=== PATIENT | female | born 1940 | race Caucasian/White ===

== ENCOUNTER → 2017-01-06 | Outpatient (CLI) | payer MEDICARE, OTHER ==
[~2017-01-06] MED LIST: ALBUAER3 INH; AMLO5TAB22 PO; ATOR10 PO; BENA25TA3 PO; BUME1TAB PO; CALC600T25 PO; CEFT2INJ IM; CLOB0.055 TOPICAL; COUM1TAB PO; COUM2TAB PO; COUM3TAB PO; DILT60TA33 PO; DIPH2%T PO; DOCU1CAP39 PO; ESTR.3 PO; FURO1TAB62 PO; HYDR-3516 PO; INSU1INJ14 SQ; L-ME1CAP2 PO; LANTUSP SQ; LASI20TA PO; LEVEMIR SQ; LEVO.075 PO; LEVO.1 PO; LEVO100T4 PO; LEVO75TA3 PO; LIPI10TA PO; LOSA100T PO; MULT-65 PO; NAPR220T95 PO; NOVOLOGP2 SQ; OMEP20TA OR; OMEP20TA PO; ONDA4TAB7 SL; POTA20TA5 PO; PROT40TA PO; SPIR25 PO; SPIR25TA PO; TAB-TAB PO; URSO250T2 PO; URSO300 PO; [UNRECOGNIZED DRUG - OTHER] PO
[2017-01-06 12:12] LABS: AUTOMATED NEUTROPHIL # 2.6 TH/MM3 (1.8-7.7); BASOPHIL % 0.9 % (0.0-2.0); EOSINOPHIL # 0.1 TH/MM3 (0-0.4); EOSINOPHIL % 2.6 % (0.0-4.0); HEMATOCRIT 37.9 % (35.0-46.0); LYMPH % 27.5 % (9.0-44.0); LYMPHOCYTE # 1.1 TH/MM3 (1.0-4.8); MEAN CELL VOLUME 85.8 FL (80.0-100.0); MEAN CORPUSCULAR HEMOGLOBIN 28.5 PG (27.0-34.0); MEAN CORPUSCULAR HGB CONC 33.2 % (32.0-36.0); MONO % 7.4 % (0.0-8.0); NEUT % 61.6 % (16.0-70.0); PLATELET COUNT 73 TH/MM3 (150-450); RED BLOOD COUNT 4.42 MIL/MM3 (4.00-5.30); RED CELL DISTRIBUTION WIDTH 15.3 % (11.6-17.2); WHITE BLOOD COUNT 4.2 TH/MM3 (4.0-11.0)
[2017-01-06 12:16] LABS: HEMO FLAGS AUTO DIFF
[2017-01-06 13:00] LABS: OVALOCYTES 1+ (NORMAL); PLATELET ESTIMATE SMEAR LOW (NORMAL); PLATELET MORPHOLOGY NORMAL (NORMAL); SCAN/DIFF AUTO DIFF CONFIRMED
== END ==
LOC: CPRE 10:46
PROVIDERS: ATTEND Ophthalmology
DX: Z01.812 Encounter for preprocedural laboratory examination (principal); H26.9 Unspecified cataract
CPT/HCPCS: 36415; 85025

== ENCOUNTER → 2017-01-20 | Day surgery (SDC) | payer MEDICARE, OTHER ==
--- NOTE | 2017-01-13 15:29 | MH ---
cc: LISA HOLBROOK M.D. DATE OF ADMISSION: 01/20/2017 ADMISSION DIAGNOSIS Cataract, left eye. HISTORY OF PRESENT ILLNESS This 76-year-old white female is coming through [facility] for the purpose of a lens extraction of the left eye with intraocular lens implant under local anesthesia. She has noticed decreasing visual acuity interfering with her daily activities and elected to have the above procedure. Her best corrected visual acuity in room light is 20/30 in the right eye and 20/30 -3 in the left. PAST MEDICAL HISTORY The patient has a history of: 1. Diabetes type 1 for 20 years. 2. Chronic bilateral liver disease, stage IV. 3. Questionable myocardial infarction with a history of cholesterol problems. 4. Hypothyroid. 5. Eczema of the hands. 6. Aortic valve stenosis. PAST SURGICAL HISTORY Includes: 1. Mastoid surgery on the left side of the ear. 2. Hysterectomy. 3. Vein stripping. 4. Skin cancer on the nose, basal cell carcinoma. 5. Heart cath. 6. Appendectomy. 7. Left arthroscopic knee surgery. 8. Open heart surgery involving aortic valve replacement. MEDICATIONS Daily medications include: 1. Mckenna. 2. Spironolactone. 3. Synthroid. 4. Lipitor. 5. Prolia. 6. Lasix. 7. Premarin. 8. Multivitamins. 9. Benadryl p.r.n. 10. Aleve p.r.n. 11. Metanx. 12. Insulin Lantus. 13. NovoLog. 14. Amoxicillin prior to dental work. 15. Vitamin D. 16. Losartan. ALLERGIES SULFA, AMPICILLIN, QUININE, LEVAQUIN, IODINE. SOCIAL HISTORY She does not smoke. Drinks socially but not since August of 1996, she is not doing that now. FAMILY HISTORY Family history is positive for mother with cataract. REVIEW OF SYSTEMS HEAD: Patient denies severe headaches, dizziness or recent head injury. EARS: Patient denies hearing loss, ear pain, discharge or ringing in the ears. NOSE: Patient denies nasal discharge, obstruction or frequent colds. MOUTH AND THROAT: Patient denies soreness of the mouth or tongue, bleeding gums, trouble swallowing, changes in voice or sore throat. NECK: Patient denies neck pain or swelling, limitation of neck movement or neck injury. CARDIOPULMONARY SYSTEM: She has some shortness of breath due to atrial valve narrowing occasionally. No orthopnea, chronic cough, sputum production, hemoptysis, chest pain, wheezing, palpitations or light-headedness. GI SYSTEM: Patient denies poor appetite, nausea, vomiting, abdominal pain, ulcers, or change in bowel habits. She has a history of hemorrhoids. SYSTEM: The patient denies urinary frequency, dysuria, change in urine color. NERVOUS SYSTEM: Patient denies convulsions, vertigo, stroke, numbness or weakness. PHYSICAL EXAMINATION VITAL SIGNS: Blood pressure is 120/64, pulse 52, respirations 16. HEAD: Normocephalic, atraumatic. NOSE: Without rhinorrhea. THROAT: Clear. NECK: Supple. CHEST: Clear. HEART: Regular rhythm with murmur. ABDOMEN: Without tenderness. EXTREMITIES: Without edema. NEUROLOGIC: Within normal limits. MENTAL STATUS: Within normal limits. EYE EXAMINATION: The patient's best corrected visual acuity in room light is 20/30 in the right eye and 20/30 -3 in the left. Visual vargas are full to confrontation testing. Extraocular muscle exam reveals full versions with orthophoria at distance and near. Pupils are 2.5 mm equal, round, reactive to light without afferent defect. Anterior segment examination reveals mild corneal guttata in both eyes. There are nuclear sclerotic and cortical cataract changes bilaterally. Intraocular pressure is 15 in the right eye and 16 in the left by applanation tonometry. Dilated fundus exam revealed sharp disks with cup-to-disk ratio 0.3 bilaterally. The macula is clear bilaterally. A few drusen are present along the inferior arcade in the left eye. IMPRESSION 1. Bilateral cataracts. 2. Corneal guttata, both eyes. 3. Diabetes type 2, insulin dependent. PLAN Lens extraction of the left eye with intraocular lens implant under local anesthesia through [facility]. The patient has been cleared medically. She has been counseled as to the risks, benefits and alternatives and elected to proceed. I feel that cataract surgery will improve the quality of life and activities of daily living in this patient. MD JOSE Flower/KASEY /2:57 PM /3:08 PM
[~2017-01-20] VITALS: Ht 157.5 cm; Wt 62.2 kg
[~2017-01-20] MED LIST changes: +ACETYLCHOLINE CHL OPHT SOLN 1:100 2 ML VIAL ONE; -AMLO5TAB22 PO; -ATOR10 PO; +CYCLOPENTOLATE HCL 1% OPHT SOLN 2 ML BTL ONE; +DICLOFENAC SOD 0.1% OPHT SOLN 2.5 ML BTL ONE; -DIPH2%T PO; +EPINEPHrine HCL (1:1000) 1 MG/ML VIAL ONE; +GATIFLOXACIN 0.5% OPHT SOLN 2.5 ML BTL ONE; +HYALURONIDASE/LIDOCAINE/BUPIVACAINE 4.5 ML SYR ONE; +HYALURONIDASE/LIDOCAINE/BUPIVACAINE 6 ML SYR ONE; -LANTUSP SQ; -LASI20TA PO; -LEVO100T4 PO; -OMEP20TA OR; +PHENYLEPHRINE HCL 2.5% OPTH SOLN 2 ML BTL ONE; +PROPARACAINE HCL 0.5% OPHT SOLN 15 ML BTL ONE; +PROPOFOL 200 MG/20 ML AMP ONE; +SODIUM CHLORID 0.9% 500 ML INJ 500 ML ONE; -TAB-TAB PO; +TOBRAMYCIN 0.3%/DEXAMETHASONE 0.1% OPHT SUSP 5 ML BTL ONE; +TROPICAMIDE 1% OPHT SOLN 15 ML BTL ONE; -URSO300 PO; +VISCOAT OPHT IRRIG SOLN 0.75 ML SYRINGE LEFT EYE ONE; -[UNRECOGNIZED DRUG - OTHER] PO
[2017-01-20 07:44] VITALS: BP 127/70; PULSE 43; RESP 16; TEMP 97.6; O2SAT 97
[2017-01-20 07:50] VITALS: PULSE 43
[2017-01-20 08:57] VITALS: PULSE 54
[2017-01-20] MEDS: TOBRAMYCIN/DEXAMETHASONE OPTH OINT 3.5 GM TUBE ONE ×2 (09:20→10:08)
[2017-01-20] MEDS: PILOCARPINE HCL 2% OPHT SOLN 15 ML BTL ONE ×2 (09:20→10:07)
[2017-01-20 10:15] VITALS: TEMP 98
[2017-01-20 10:35] VITALS: BP 120/59; PULSE 41; RESP 14; O2SAT 98
--- NOTE | 2017-01-20 11:53 | MP ---
cc: LISA KUMAR M.D. DATE OF SURGERY: January 20, 2017 PREOPERATIVE DIAGNOSIS: Cataract left eye. POSTOPERATIVE DIAGNOSIS: Cataract left eye. OPERATION: Extracapsular cataract extraction with posterior chamber intraocular lens implant by phacoemulsification, left eye. SURGEON: Lisa Kumar M.D. ANESTHESIA: Local. COMPLICATIONS: None. INDICATIONS: See history and physical previously dictated. OPERATIVE PROCEDURE: The patient had adequate retrobulbar and eyelid blocks administered in the holding area and was brought to the operating room. The left eye was prepped and draped in the usual sterile ophthalmic manner. A lid speculum was inserted in the left eye. A 4-0 silk bridle suture was placed through the conjunctiva near the superior rectus muscle and it was tagged to the drape. A fornix-based conjunctival flap was prepared spanning approximately 5 mm in width. Hemostasis was obtained with wet-field cautery. A 3.5 mm groove was made 1 mm from the limbus and dissected up to the limbus in the form of a scleral pocket incision. A stab incision was then made at the 2 o'clock position. Viscoelastic was injected into the anterior chamber. In order to maintain an adequately dilated pupil, it was elected to use iris retractors in this case. Stab incisions were made at the 1 o'clock, 3 o'clock, 5 o'clock, 8 o'clock and 10 o'clock positions. Iris retractors were then inserted through the stab incisions in the peripheral cornea and positioned to enlarge the size of the pupil. The anterior chamber was entered with a 2.75 mm keratome through the scleral pocket incision. A 360 degree continuous curvilinear capsulorrhexis was then performed. Hydrodissection was utilized to divide the nucleus into inner and outer components and to separate the cortex from the capsule. Phacoemulsification was then utilized to remove the nucleus. The outer nuclear layer was removed with irrigation and aspiration and short bursts of ultrasound as necessary. The cortex was removed with the irrigation-aspiration handpiece. The posterior capsule was polished with the capsule polisher. Viscoelastic was injected into the capsular bag. The intraocular lens was inspected and found to be in good condition. The lens utilized was an Seun, model #SA60AT with a power of +24 diopters. The lens was inserted into the capsular bag. The five iris retractors were removed. The viscoelastic in the anterior chamber was then removed with the irrigation-aspiration hand piece. Viscoelastic was also removed from beneath the intraocular lens. The anterior chamber was filled with Miochol-E through the stab incision and pressurized. The wound was checked for leaks at this pressure and normalized pressure and there were none. The 4-0 bridle suture was removed. The conjunctival flap was brought down over the wound and secured with cautery. Pilocarpine 2% eye drops were instilled topically. The lid speculum was removed. TobraDex ophthalmic ointment was applied. The eye was double patched and shielded. The patient tolerated the procedure well and left the Operating Room in satisfactory condition. MD JOSE Flower/DOMO /10:20 AM /11:52 AM
== END | disposition home or self-care (01) ==
LOC: PHSDC 07:00
PROVIDERS: ATTEND Ophthalmology
DX: H26.9 Unspecified cataract (principal); E10.9 Type 1 diabetes mellitus without complications; E03.9 Hypothyroidism, unspecified; Z79.4 Long term (current) use of insulin; Z88.0 Allergy status to penicillin
CPT/HCPCS: 00142; 66984; 82948; J0171; J7040; V2632

== ENCOUNTER → 2017-02-17 | Outpatient (CLI) | payer MEDICARE, OTHER ==
[~2017-02-17] MED LIST changes: -ACETYLCHOLINE CHL OPHT SOLN 1:100 2 ML VIAL ONE; -CALC600T25 PO; -CYCLOPENTOLATE HCL 1% OPHT SOLN 2 ML BTL ONE; -DICLOFENAC SOD 0.1% OPHT SOLN 2.5 ML BTL ONE; -EPINEPHrine HCL (1:1000) 1 MG/ML VIAL ONE; -GATIFLOXACIN 0.5% OPHT SOLN 2.5 ML BTL ONE; -HYALURONIDASE/LIDOCAINE/BUPIVACAINE 4.5 ML SYR ONE; -HYALURONIDASE/LIDOCAINE/BUPIVACAINE 6 ML SYR ONE; -PHENYLEPHRINE HCL 2.5% OPTH SOLN 2 ML BTL ONE; -PROPARACAINE HCL 0.5% OPHT SOLN 15 ML BTL ONE; -PROPOFOL 200 MG/20 ML AMP ONE; -SODIUM CHLORID 0.9% 500 ML INJ 500 ML ONE; -TOBRAMYCIN 0.3%/DEXAMETHASONE 0.1% OPHT SUSP 5 ML BTL ONE; -TROPICAMIDE 1% OPHT SOLN 15 ML BTL ONE; -VISCOAT OPHT IRRIG SOLN 0.75 ML SYRINGE LEFT EYE ONE
[2017-02-17 10:41] LABS: HEMATOCRIT 37.7 % (35.0-46.0); MEAN CELL VOLUME 85.9 FL (80.0-100.0); MEAN CORPUSCULAR HGB CONC 32.6 % (32.0-36.0); PLATELET COUNT 67 TH/MM3 (150-450); RED BLOOD COUNT 4.39 MIL/MM3 (4.00-5.30); RED CELL DISTRIBUTION WIDTH 13.6 % (11.6-17.2); WHITE BLOOD COUNT 3.6 TH/MM3 (4.0-11.0)
[2017-02-17 10:42] LABS: REVIEW FLAG AUTO DIFF
== END ==
LOC: PHPRE 10:01
PROVIDERS: ATTEND Ophthalmology
DX: Z01.812 Encounter for preprocedural laboratory examination (principal)
CPT/HCPCS: 85027

== ENCOUNTER → 2017-02-24 | Day surgery (SDC) | payer MEDICARE, OTHER ==
--- NOTE | 2017-02-18 15:56 | MH ---
cc: LISA HOLBROOK DATE OF ADMISSION 02/24/2017 ADMISSION DIAGNOSIS Cataract right eye. HISTORY OF PRESENT ILLNESS This 76-year-old white female is coming through [facility] for the purpose of a lens extraction of the right eye with intraocular lens implant under local anesthesia. She had a similar procedure in January and did well postoperatively and now is requesting cataract surgery for her right eye. Her best corrected visual acuity is 20/30 -1 in the right eye and 20/25 -1 in the left. PAST MEDICAL HISTORY The patient has history of: 1. Diabetes. 2. Bilateral liver disease. 3. Cholesterol problems. 4. Possible myocardial infarction. 5. Hypothyroid. 6. Eczema of the hands. 7. Aortic valve stenosis. PAST SURGICAL HISTORY Surgical history includes: 1. The above-mentioned cataract surgery on her left eye in January. 2. As well as mastoid surgery on the left ear. 3. Hysterectomy. 4. Vein stripping. 5. Skin cancer on the nose with basal cell carcinoma. 6. Heart cath. 7. Appendectomy. 8. Left arthroscopic knee surgery. 9. Aortic valve replacement. MEDICATIONS Daily medications include: 1. Mckenna. 2. Spironolactone. 3. Synthroid. 4. Lipitor. 5. Prolia injections every 6 months. 6. Lasix. 7. Premarin. 8. Multivitamins. 9. Benadryl p.r.n. 10. Aleve p.r.n. 11. Metanx. 12. Insulin Lantus / NovoLog. 13. Amoxicillin prior to dental work. 14. Vitamin D. 15. Losartan. ALLERGIES SHE IS ALLERGIC TO SULFA, AMPICILLIN, QUININE, LEVAQUIN, IODINE. SOCIAL HISTORY She does not smoke and used to drink socially but not in many years. FAMILY HISTORY Positive for mother with cataract. REVIEW OF SYSTEMS HEAD: Patient denies severe headaches, dizziness or recent head injury. EARS: Patient denies hearing loss, ear pain, discharge or ringing in the ears. NOSE: Patient denies nasal discharge, obstruction or frequent colds. MOUTH AND THROAT: Patient denies soreness of the mouth or tongue, bleeding gums, trouble swallowing, changes in voice or sore throat. NECK: Patient denies neck pain or swelling, limitation of neck movement or neck injury. CARDIOPULMONARY SYSTEM: The patient has some shortness of breath due to the atrial valve narrowing, this occurs occasionally. Patient denies orthopnea, chronic cough, sputum production, hemoptysis, chest pain, wheezing, palpitations or light-headedness. GI SYSTEM: The patient has hemorrhoids. Patient denies poor appetite, nausea, vomiting, abdominal pain, ulcers or change in bowel habits. SYSTEM: The patient denies urinary frequency, dysuria, change in urine color. NERVOUS SYSTEM: Patient denies convulsions, vertigo, stroke, numbness or weakness. PHYSICAL EXAMINATION VITAL SIGNS: Blood pressure 124/60, pulse 52, respirations 20. HEAD: Normocephalic, atraumatic. NOSE: Without rhinorrhea. THROAT: Clear. NECK: Supple. CHEST: Clear. HEART: Regular rhythm with murmur. ABDOMEN: Without tenderness. EXTREMITIES: Without edema. NEUROLOGIC: Within normal limits. MENTAL STATUS: Within normal limits. EYE EXAMINATION The patient's best corrected visual acuity is 20/30 -1 in the right eye, 20/25 -1 in the left. Visual vargas are full to confrontation testing. Extraocular muscle exam reveals full versions with orthophoria at distance and near. Pupils are 2.5 mm equal, round, reactive to light without afferent defect. Anterior segment examination reveals mild corneal guttae in both eyes. There is a posterior chamber intraocular lens in place in the left eye and a nuclear sclerotic and cortical cataract present in the right eye. The intraocular pressure is 12 in each eye by applanation tonometry. Dilated fundus exam reveals sharp disks with cup-to-disk ratio 0.3 bilaterally. The macula is clear bilaterally. There are a few drusen along the inferior vessel arcade in the left eye and one dot hemorrhage superonasal in the mid periphery of the left eye in the background. The rest is negative. IMPRESSION 1. Cataract right eye. 2. Pseudophakia left eye. 3. Corneal guttae. PLAN The plan is lens extraction of the right eye with intraocular lens implant under local anesthesia through [facility]. Iris retractors will be used in this patient whose pupil does not dilate adequately. The patient has been cleared medically. She has been counseled as to the risks, benefits and alternatives and elected to proceed. I feel that cataract surgery will improve the quality of life and activities of daily living in this patient. MD JOSE F Flower /3:16 PM /3:33 PM
[~2017-02-24] VITALS: Ht 162.6 cm; Wt 66.5 kg
[~2017-02-24] MED LIST changes: +ACETYLCHOLINE CHL OPHT SOLN 1:100 2 ML VIAL ONE; +CYCLOPENTOLATE HCL 1% OPHT SOLN 2 ML BTL ONE; +DICLOFENAC SOD 0.1% OPHT SOLN 2.5 ML BTL ONE; +EPINEPHrine HCL (1:1000) 1 MG/ML VIAL ONE; +GATIFLOXACIN 0.5% OPHT SOLN 2.5 ML BTL ONE; +HYALURONIDASE/LIDOCAINE/BUPIVACAINE 4.5 ML SYR ONE; +HYALURONIDASE/LIDOCAINE/BUPIVACAINE 6 ML SYR ONE; +MIDAZOLAM HCL 2 MG/2 ML VIAL ONE; +PHENYLEPHRINE HCL 2.5% OPTH SOLN 2 ML BTL ONE; +PROPARACAINE HCL 0.5% OPHT SOLN 15 ML BTL ONE; +PROPOFOL 200 MG/20 ML AMP ONE; +SODIUM CHLORID 0.9% 500 ML INJ 500 ML ONE; +TETRACAINE 0.5% OPTH SOLN 4 ML BTL ONE; +TROPICAMIDE 1% OPHT SOLN 15 ML BTL ONE; +VISCOAT OPHT IRRIG SOLN 0.75 ML SYRINGE RIGHT EYE ONE
[2017-02-24 06:30] VITALS: BP 139/66; PULSE 50; RESP 19; TEMP 97.5; O2SAT 97
[2017-02-24 06:50] VITALS: PULSE 50
[2017-02-24 06:55] VITALS: PULSE 54
[2017-02-24] MEDS: PILOCARPINE HCL 2% OPHT SOLN 15 ML BTL ONE ×2 (08:05→09:25)
[2017-02-24] MEDS: TOBRAMYCIN/DEXAMETHASONE OPTH OINT 3.5 GM TUBE ONE ×2 (08:06→09:25)
[2017-02-24 09:30] VITALS: TEMP 98
[2017-02-24 09:55] VITALS: BP 125/49; PULSE 53; RESP 14; O2SAT 97
--- NOTE | 2017-02-25 17:28 | MP ---
cc: LISA KUMAR DATE OF SURGERY: 02/24/2017 PREOPERATIVE DIAGNOSIS: Cataract right eye. POSTOPERATIVE DIAGNOSIS: Cataract right eye. OPERATION: Extracapsular cataract extraction with posterior chamber intraocular lens implant by phacoemulsification, right eye. SURGEON: Lisa Kumar M.D. ANESTHESIA: Local. COMPLICATIONS: None. INDICATIONS: See history and physical previously dictated. OPERATIVE PROCEDURE: The patient had adequate retrobulbar and eyelid blocks administered in the holding area and was brought to the operating room. The right eye was prepped and draped in the usual sterile ophthalmic manner. A lid speculum was inserted in the right eye. A 4-0 silk bridle suture was placed through the conjunctiva near the superior rectus muscle and it was tagged to the drape. A fornix-based conjunctival flap was prepared spanning approximately 5 mm in width. Hemostasis was obtained with wet-field cautery. A 3.5 mm groove was made 1 mm from the limbus and dissected up to the limbus in the form of a scleral pocket incision. A stab incision was then made at the 2 o'clock position. Viscoelastic was injected into the anterior chamber. In order to maintain an adequately dilated pupil, it was elected to use iris retractors in this case. Stab incisions were made at the 1 o'clock, 3 o'clock, 5 o'clock, 8 o'clock and 10 o'clock positions. Iris retractors were then inserted through the stab incisions in the peripheral cornea and positioned to enlarge the size of the pupil. The anterior chamber was entered with a 2.75 mm keratome through the scleral pocket incision. A 360 degree continuous curvilinear capsulorrhexis was then performed. Hydrodissection was utilized to divide the nucleus into inner and outer components and to separate the cortex from the capsule. Phacoemulsification was then utilized to remove the nucleus. The outer nuclear layer was removed with irrigation and aspiration and short bursts of ultrasound as necessary. The cortex was removed with the irrigation-aspiration handpiece. The posterior capsule was polished with the capsule polisher. Viscoelastic was injected into the capsular bag. The intraocular lens was inspected and found to be in good condition. The lens utilized was a Seun, model SA60 AT with a power of +23.5 diopters. The lens was inserted into the capsular bag. The five iris retractors were removed. The viscoelastic in the anterior chamber was then removed with the irrigation-aspiration hand piece. Viscoelastic was also removed from beneath the intraocular lens. The anterior chamber was filled with Miochol-E through the stab incision and pressurized. The wound was closed with one interrupted 10-0 nylon suture. The wound was checked for leaks and there were none. The 4-0 bridle suture was removed. The conjunctival flap was brought down over the wound and secured with cautery. Pilocarpine 2% eye drops were instilled topically. The lid speculum was removed. TobraDex ophthalmic ointment was applied. The eye was double patched and shielded. The patient tolerated the procedure well and left the Operating Room in satisfactory condition. MD JOSE Flower/linda /9:42 AM /5:25 PM
== END | disposition home or self-care (01) ==
LOC: PHSDC 06:01
PROVIDERS: ATTEND Ophthalmology
DX: H26.9 Unspecified cataract (principal); E03.9 Hypothyroidism, unspecified; E11.9 Type 2 diabetes mellitus without complications; Z79.4 Long term (current) use of insulin; Z95.2 Presence of prosthetic heart valve; Z88.0 Allergy status to penicillin; Z85.828 Personal history of other malignant neoplasm of skin
CPT/HCPCS: 00142; 66984; J0171; J2250; J7040; V2632

== ENCOUNTER 2017-03-06 13:45 | Emergency (ER) | payer MEDICARE, OTHER ==
[~2017-03-06] VITALS: Ht 165.1 cm; Wt 64.4 kg
[~2017-03-06 13:45] MED LIST changes: -ACETYLCHOLINE CHL OPHT SOLN 1:100 2 ML VIAL ONE; -BUME1TAB PO; -CEFT2INJ IM; -COUM1TAB PO; -COUM2TAB PO; -COUM3TAB PO; -CYCLOPENTOLATE HCL 1% OPHT SOLN 2 ML BTL ONE; -DICLOFENAC SOD 0.1% OPHT SOLN 2.5 ML BTL ONE; -DILT60TA33 PO; -DOCU1CAP39 PO; -EPINEPHrine HCL (1:1000) 1 MG/ML VIAL ONE; -GATIFLOXACIN 0.5% OPHT SOLN 2.5 ML BTL ONE; -HYALURONIDASE/LIDOCAINE/BUPIVACAINE 4.5 ML SYR ONE; -HYALURONIDASE/LIDOCAINE/BUPIVACAINE 6 ML SYR ONE; -HYDR-3516 PO; -LEVEMIR SQ; -LEVO.075 PO; -LEVO75TA3 PO; -MIDAZOLAM HCL 2 MG/2 ML VIAL ONE; -ONDA4TAB7 SL; -PHENYLEPHRINE HCL 2.5% OPTH SOLN 2 ML BTL ONE; -POTA20TA5 PO; -PROPARACAINE HCL 0.5% OPHT SOLN 15 ML BTL ONE; -PROPOFOL 200 MG/20 ML AMP ONE; -PROT40TA PO; -SODIUM CHLORID 0.9% 500 ML INJ 500 ML ONE; -SPIR25 PO; -TETRACAINE 0.5% OPTH SOLN 4 ML BTL ONE; -TROPICAMIDE 1% OPHT SOLN 15 ML BTL ONE; -VISCOAT OPHT IRRIG SOLN 0.75 ML SYRINGE RIGHT EYE ONE
[2017-03-06 14:07] VITALS: BP 118/56; PULSE 61; RESP 18; TEMP 97.6; O2SAT 96
[2017-03-06 14:14] VITALS: BP 105/58; PULSE 60; RESP 18; O2SAT 97; O2SAT 99
[2017-03-06] MEDS ORDERED: SODIUM CHLORIDE 0.9% FLUSH 10 ML FLUSH IVF PRN (14:45)
[2017-03-06] MEDS ORDERED: SODIUM CHLOR 0.9% 1000 ML INJ 1,000 ML IV ONE (14:45)
--- NOTE | 2017-03-06 14:57 | PD ---
HPI Chief Complaint: GI Complaint Time Seen by Provider: 14:31 Travel History International Travel<30 days: No Contact w/Intl Traveler<30days: No Traveled to known affect area: No History of Present Illness HPI Patient is a 76-year-old female who presents to emergency room with complaints of not feeling well. Patient reports that since Friday, she has been feeling tired. Patient reports that she has been doing nothing but sleeping all day since Friday. Patient reports that she has had overall decreased by mouth intake. Patient reports that she has tried to supplement her diet with some glucerna. Reports that she has had a slightly productive cough since Friday as well as diarrhea. Patient reports that she has had about 4-5 episodes of diarrhea every day. Patient reports that she has not been on any oral antibiotics at this time, denies any sick contacts or any sick contacts or diarrhea. Patient denies any recent travels or any recent trips. Patient denies headache or dizziness. Patient denies chest pain or shortness of breath. Patient denies any abdominal pain at this time. Patient reports that she feels overall generalized weakness and fatigue. PFSH Past Medical History Arthritis: Yes Asthma: No Anxiety: No Depression: No Heart Rhythm Problems: No Cancer: No Cardiovascular Problems: Yes (VALVE REPLACEMENT) High Cholesterol: Yes Chest Pain: No Congestive Heart Failure: Yes Cirrhosis: Yes (STAGE 4 CHRONIC BILLARY) COPD: No Cerebrovascular Accident: No Diabetes: Yes Patient Takes Glucophage: No Diminished Hearing: No Endocrine: Yes Gastrointestinal Disorders: Yes (GERD) GERD: Yes Genitourinary: No Hepatitis: No Hiatal Hernia: Yes Hypertension: Yes Immune Disorder: No Medical other: Yes (L HAND ) Musculoskeletal: Yes (BACK PAIN, BROKEN PELVIS 2016(NO SURGERY)) Neurologic: No Psychiatric: No Reproductive: No Respiratory: Yes Immunizations Current: Yes Migraines: No Renal Failure: No Seizures: No Thyroid Disease: Yes Ulcer: No Tetanus Vaccination: < 5 Years Influenza Vaccination: Yes ?: Not Menopausal: Yes Past Surgical History Abdominal Surgery: Yes (APP) AICD: No Appendectomy: Yes (1950) Body Medical Devices: ATRIAL VALVE Cardiac Surgery: Yes (VALVE REPLACEMENT) Cholecystectomy: Yes (2005) Ear Surgery: No Endocrine Surgery: No Eye Surgery: Yes (cataract) Genitourinary Surgery: No Gynecologic Surgery: Yes (HYSTERECTOMY) Hysterectomy: Yes Joint Replacement: No Neurologic Surgery: No Oral Surgery: No Pacemaker: No Thoracic Surgery: No Valve Replacement: Yes (ATRIAL VALVE REPLACEMENT MODEL 3000FTX) Other Surgery: Yes (ATRIAL STENOSIS REPAIR BOVINE VALVE, MENISCUS REPAIR) Social History Alcohol Use: Yes (social) Tobacco Use: No Substance Use: No Allergies-Medications (Allergen,Severity, Reaction): Coded Allergies: Macrobid (Unverified Allergy, Severe, itching, 03/06/17) Adhesives (Verified Allergy, Intermediate, REDNESS, ITCHING, 03/06/17) Ampicillin (Verified Allergy, Mild, 03/06/17) Contrast Media (Verified Allergy, Mild, 03/06/17) Iodine (Verified Allergy, Mild, 03/06/17) Levaquin (Verified Allergy, Mild, 03/06/17) Sulfa (Verified Allergy, Mild, 03/06/17) *MDRO Multi-Drug Resistant Organism (Verified Adverse Reaction, Unknown, ) 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 Cleared by Infection Control. Reported Meds & Prescriptions Reported Meds & Active Scripts Active Reported Novolog Inj (Insulin Aspart) 1,000 Unit/10 Ml Vial 0 SQ DIRECTED Sliding Scale as directed. Spironolactone 25 Mg Tab 25 Mg PO DAILY Proair Hfa 8.5 GM Inh (Albuterol Sulfate) 90 Mcg/Act Aer 2 Puff INH Q4-6H PRN 108 mcg/actuation Metanx (w-[id number]) 1 Cap 1 Caplet PO BID Benadryl Allergy (Diphenhydramine HCl) 25 Mg Tab 25 Mg PO Q6H PRN Tresiba Flextouch Pen Inj (Insulin Degludec Inj) 300 unit/3 ML Pen 10 Units SQ AC BREAKFAST Premarin (Estrogens Conjugated) 0.3 Mg Tab 0.3 Mg PO DIRECTED 3 TIMES A WEEK Lasix (Furosemide) 20 Mg Tab 20 Mg PO 2XWEEK Losartan (Losartan Potassium) 100 Mg Tab 100 Mg PO DAILY Omeprazole 20 Mg Tab 20 Mg PO DAILY Lipitor (Atorvastatin Calcium) 10 Mg Tab 10 Mg PO HS Synthroid (Levothyroxine Sodium) 100 Mcg Tab 100 Mcg PO DAILY Multi-Vitamin Daily (Multiple Vitamin) 1 Tab Tab 1 Tab PO DAILY Mckenna 250 (Ursodiol) 250 Mg Tab 500 Mg PO BID Review of Systems General / Constitutional: No: Fever Eyes: No: Visual changes HENT: No: Headaches Cardiovascular: No: Chest Pain or Discomfort Respiratory: Positive: Cough, No: Shortness of Breath Gastrointestinal: Positive: Diarrhea, No: Nausea, Vomiting, Abdominal Pain, Constipation Genitourinary: No: Urgency, Frequency, Dysuria Musculoskeletal: No: Pain Skin: No Rash Neurologic: Positive: Weakness Psychiatric: No: Depression Endocrine: No: Polydipsia Hematologic/Lymphatic: No: Easy Bruising Physical Exam Narrative GENERAL: Mild distress SKIN: Focused skin assessment warm/dry. HEAD: Atraumatic. Normocephalic. EYES: Pupils equal and round. No scleral icterus. No injection or drainage. ENT: No nasal bleeding or discharge. Mucous membranes pink and dry NECK: Trachea midline. No JVD. CARDIOVASCULAR: Regular rate and rhythm. 5/6 systolic murmur RESPIRATORY: No accessory muscle use. Clear to auscultation. Breath sounds equal bilaterally. GASTROINTESTINAL: Abdomen soft, non-tender, nondistended. Hepatic and splenic margins not palpable. MUSCULOSKELETAL: No obvious deformities. No clubbing. No cyanosis. No edema. NEUROLOGICAL: Awake and alert. No obvious cranial nerve deficits. Motor grossly within normal limits. Normal speech. PSYCHIATRIC: Appropriate mood and affect; insight and judgment normal. Data Data Last Documented VS Vital Signs Date Time Temp Pulse Resp B/P Pulse Ox O2 Delivery O2 Flow Rate FiO2 03/06/17 16:03 48 18 105/58 97 Room Air 03/06/17 14:07 97.6 Orders Electrocardiogram (03/06/17 14:42) B-Type Natriuretic Peptide (03/06/17 14:42) Ckmb (Isoenzyme) Profile (03/06/17 14:42) Complete Blood Count With Diff (03/06/17 14:42) Comprehensive Metabolic Panel (03/06/17 14:42) Magnesium (Mg) (03/06/17 14:42) Prothrombin Time / Inr (Pt) (03/06/17 14:42) Act Partial Throm Time (Ptt) (03/06/17 14:42) Troponin I (03/06/17 14:42) Lipase (03/06/17 14:42) Chest, Single Ap (03/06/17 14:42) Ecg Monitoring (03/06/17 14:42) Iv Access Insert/Monitor (03/06/17 14:42) Oximetry (03/06/17 14:42) Sodium Chloride 0.9% Flush (Ns Flush) (03/06/17 14:45) C Diff Toxin Pcr (03/06/17 14:42) Urinalysis - C+S If Indicated (03/06/17 14:42) Sodium Chlor 0.9% 1000 Ml Inj (Ns 1000 M (03/06/17 14:45) Influenzae A/B Antigen (03/06/17 14:57) CKMB (03/06/17 14:30) CKMB% (03/06/17 14:30) Labs Laboratory Tests Test 03/06/17 03/06/17 14:30 15:30 White Blood Count 5.8 TH/MM3 Red Blood Count 4.37 MIL/MM3 Hemoglobin 12.8 GM/DL Hematocrit 37.8 % Mean Corpuscular Volume 86.4 FL Mean Corpuscular Hemoglobin 29.2 PG Mean Corpuscular Hemoglobin 33.8 % Concent Red Cell Distribution Width 14.2 % Platelet Count 56 TH/MM3 Mean Platelet Volume 8.8 FL Neutrophils (%) (Auto) 81.2 % Lymphocytes (%) (Auto) 10.1 % Monocytes (%) (Auto) 8.4 % Eosinophils (%) (Auto) 0.2 % Basophils (%) (Auto) 0.1 % Neutrophils # (Auto) 4.7 TH/MM3 Lymphocytes # (Auto) 0.6 TH/MM3 Monocytes # (Auto) 0.5 TH/MM3 Eosinophils # (Auto) 0.0 TH/MM3 Basophils # (Auto) 0.0 TH/MM3 CBC Comment AUTO DIFF Differential Comment AUTO DIFF CONFIRMED Platelet Estimate LOW Prothrombin Time 11.9 SEC Prothromb Time International 1.1 RATIO Ratio Activated Partial 27.3 SEC Thromboplast Time Sodium Level 134 MEQ/L Potassium Level 4.0 MEQ/L Chloride Level 102 MEQ/L Carbon Dioxide Level 21.0 MEQ/L Anion Gap 11 MEQ/L Blood Urea Nitrogen 34 MG/DL Creatinine 1.00 MG/DL Estimat Glomerular Filtration 54 ML/MIN Rate Random Glucose 302 MG/DL Calcium Level 8.6 MG/DL Magnesium Level 2.0 MG/DL Total Bilirubin 2.6 MG/DL Aspartate Amino Transf 46 U/L (AST/SGOT) Alanine Aminotransferase 33 U/L (ALT/SGPT) Alkaline Phosphatase 147 U/L Total Creatine Kinase 105 U/L Creatine Kinase MB 0.8 NG/ML Troponin I 0.03 NG/ML B-Type Natriuretic Peptide 501 PG/ML Total Protein 6.3 GM/DL Albumin 2.7 GM/DL Lipase 232 U/L Urine Color GENESIS Urine Turbidity CLEAR Urine pH 6.0 Urine Specific Mozier 1.017 Urine Protein TRACE mg/dL Urine Glucose (UA) NEG mg/dL Urine Ketones NEG mg/dL Urine Occult Blood NEG Urine Nitrite NEG Urine Bilirubin SMALL Urine Leukocyte Esterase NEG Urine RBC 0-3 /hpf Urine WBC 0-2 /hpf Urine Squamous Epithelial 0-5 /hpf Cells Urine Granular Casts 0-2 /lpf Urine Fine Granular Casts 0-2 /lpf Urine Red Blood Cell Casts 0-2 /lpf Microscopic Urinalysis Comment CULT NOT INDICATED MDM Medical Decision Making Medical Screen Exam Complete: Yes Emergency Medical Condition: Yes Interpretation(s) Vital Signs Date Time Temp Pulse Resp B/P Pulse Ox O2 Delivery O2 Flow Rate FiO2 03/06/17 14:14 60 18 105/58 99 Room Air 03/06/17 14:07 97.6 61 18 118/56 96 Differential Diagnosis Dehydration, electrolyte abnormality, pneumonia, UTI, influenza, ACS, hypothyroidism, C. difficile, gastroenteritis Narrative Course 76-year-old female who presents to emergency room with complaints of not feeling well for the past few days. Patient reports that since Friday, she has been laying in bed and sleeping all day. Patient with overall decreased oral intake, reports multiple episodes of diarrhea Patient is nontoxic on initial evaluation. She does appear dehydrated, will administer IVF. Plan to obtain lab work, will obtain stool for C. difficile culture, x-ray of the chest as well as UA. Plan to hydrate patient and observe her. Laboratory Tests Test 03/06/17 03/06/17 14:30 15:30 White Blood Count 5.8 TH/MM3 (4.0-11.0) Red Blood Count 4.37 MIL/MM3 (4.00-5.30) Hemoglobin 12.8 GM/DL (11.6-15.3) Hematocrit 37.8 % (35.0-46.0) Mean Corpuscular Volume 86.4 FL (80.0-100.0) Mean Corpuscular Hemoglobin 29.2 PG (27.0-34.0) Mean Corpuscular Hemoglobin 33.8 % Concent (32.0-36.0) Red Cell Distribution Width 14.2 % (11.6-17.2) Platelet Count 56 TH/MM3 (150-450) Mean Platelet Volume 8.8 FL (7.0-11.0) Neutrophils (%) (Auto) 81.2 % (16.0-70.0) Lymphocytes (%) (Auto) 10.1 % (9.0-44.0) Monocytes (%) (Auto) 8.4 % (0.0-8.0) Eosinophils (%) (Auto) 0.2 % (0.0-4.0) Basophils (%) (Auto) 0.1 % (0.0-2.0) Neutrophils # (Auto) 4.7 TH/MM3 (1.8-7.7) Lymphocytes # (Auto) 0.6 TH/MM3 (1.0-4.8) Monocytes # (Auto) 0.5 TH/MM3 (0-0.9) Eosinophils # (Auto) 0.0 TH/MM3 (0-0.4) Basophils # (Auto) 0.0 TH/MM3 (0-0.2) CBC Comment AUTO DIFF Differential Comment AUTO DIFF CONFIRMED Platelet Estimate LOW (NORMAL) Prothrombin Time 11.9 SEC (9.8-11.6) Prothromb Time International 1.1 RATIO Ratio Activated Partial 27.3 SEC Thromboplast Time (24.3-30.1) Sodium Level 134 MEQ/L (136-145) Potassium Level 4.0 MEQ/L (3.5-5.1) Chloride Level 102 MEQ/L (98-107) Carbon Dioxide Level 21.0 MEQ/L (21.0-32.0) Anion Gap 11 MEQ/L (5-15) Blood Urea Nitrogen 34 MG/DL (7-18) Creatinine 1.00 MG/DL (0.50-1.00) Estimat Glomerular Filtration 54 ML/MIN (>89) Rate Random Glucose 302 MG/DL (74-106) Calcium Level 8.6 MG/DL (8.5-10.1) Magnesium Level 2.0 MG/DL (1.5-2.5) Total Bilirubin 2.6 MG/DL (0.2-1.0) Aspartate Amino Transf 46 U/L (15-37) (AST/SGOT) Alanine Aminotransferase 33 U/L (10-53) (ALT/SGPT) Alkaline Phosphatase 147 U/L (45-117) Total Creatine Kinase 105 U/L (26-192) Creatine Kinase MB 0.8 NG/ML (0.5-3.6) Troponin I 0.03 NG/ML (0.02-0.05) B-Type Natriuretic Peptide 501 PG/ML (0-100) Total Protein 6.3 GM/DL (6.4-8.2) Albumin 2.7 GM/DL (3.4-5.0) Lipase 232 U/L (73-393) Urine Color GENESIS (YELLW/STRAW) Urine Turbidity CLEAR (CLEAR) Urine pH 6.0 (5.0-8.5) Urine Specific Mozier 1.017 (1.002-1.035) Urine Protein TRACE mg/dL (NEG-TRACE) Urine Glucose (UA) NEG mg/dL (NEG) Urine Ketones NEG mg/dL (NEG) Urine Occult Blood NEG (NEG) Urine Nitrite NEG (NEG) Urine Bilirubin SMALL (NEG) Urine Leukocyte Esterase NEG (NEG) Urine RBC 0-3 /hpf (0-3) Urine WBC 0-2 /hpf (0-5) Urine Squamous Epithelial 0-5 /hpf (0-5) Cells Urine Granular Casts 0-2 /lpf (NONE) Urine Fine Granular Casts 0-2 /lpf (NONE) Urine Red Blood Cell Casts 0-2 /lpf (NONE) Microscopic Urinalysis Comment CULT NOT INDICATED Microbiology Date/Time Procedure Status Source Growth 03/06/17 15:20 Influenza Types A,B Antigen (DIANE) - Final Complete Nasal Washing NEGATIVE FOR FLU A AND B ANTIGEN.... Last Impressions Chest X-Ray 03/06/17 1442 Signed Impressions: Service Date/Time: February 14:51 - CONCLUSION: Mild cardiomegaly Status post valve replacement. No acute cardiopulmonary process. Trevon gNuyen MD Patient reevaluated, patient feeling better at this time. I reviewed all labs and all studies with patient in detail. Patient will follow-up with primary doctor and will return to emergency room as needed. Patient unable to provide stool sample at this time. She does feels safe to be discharged to home. Diagnosis Primary Impression: Generalized weakness Additional Impressions: Diarrhea Thrombocytopenia Patient Instructions: General Instructions Additional Instructions: Please follow-up with your primary care doctor and 1-2 days Return to the emergency room as needed or symptoms return or persist Disposition: 01 DISCHARGE HOME Condition: Stable Minoo Dawn DO Mar 06, 2017 14:57
[2017-03-06 15:16] LABS: AUTOMATED NEUTROPHIL # 4.7 TH/MM3 (1.8-7.7); BASOPHIL % 0.1 % (0.0-2.0); EOSINOPHIL % 0.2 % (0.0-4.0); HEMATOCRIT 37.8 % (35.0-46.0); LYMPH % 10.1 % (9.0-44.0); LYMPHOCYTE # 0.6 TH/MM3 (1.0-4.8); MEAN CELL VOLUME 86.4 FL (80.0-100.0); MEAN CORPUSCULAR HEMOGLOBIN 29.2 PG (27.0-34.0); MEAN CORPUSCULAR HGB CONC 33.8 % (32.0-36.0); MONO % 8.4 % (0.0-8.0); NEUT % 81.2 % (16.0-70.0); PLATELET COUNT 56 TH/MM3 (150-450); RED BLOOD COUNT 4.37 MIL/MM3 (4.00-5.30); RED CELL DISTRIBUTION WIDTH 14.2 % (11.6-17.2); WHITE BLOOD COUNT 5.8 TH/MM3 (4.0-11.0)
[2017-03-06 15:17] LABS: CHLORIDE 102 MEQ/L (98-107); SODIUM (NA) 134 MEQ/L (136-145)
[2017-03-06 15:19] LABS: HEMO FLAGS AUTO DIFF
--- NOTE | 2017-03-06 15:19 | RADHPO ---
EXAM DATE/TIME: 03/06/2017 14:51 [facility] COMPARISON: CHEST SINGLE AP, June 23, 2015, 22:58. INDICATIONS : Weakness and fatigue since Friday. MEDICAL HISTORY : Hypertension. Diabetes mellitus type II. Congestive heart failure. Liver disease. Hiatal hernia. SURGICAL HISTORY : Appendectomy. Cholecystectomy. Atrial valve repair. Hiatal hernia repair. Conary stent. ENCOUNTER: Initial ACUITY: 4 - 6 days PAIN SCORE: 0/10 LOCATION: Bilateral chest FINDINGS: A single view of the chest demonstrates the lungs to be symmetrically aerated without evidence of mas s, infiltrate or effusion. Median sternotomy wires are seen from prior surgery. Heart is mildly enlar ged. The cardiomediastinal contours are otherwise unremarkable. Osseous structures are intact. CONCLUSION: Mild cardiomegaly Status post valve replacement. No acute cardiopulmonary process. Trevon Nguyen MD on March 06, 2017 at 15:15 Board Certified Radiologist. This report was verified electronically.
[2017-03-06 15:21] LABS: ANION GAP 11 MEQ/L (5-15)
[2017-03-06 15:22] LABS: BLOOD UREA NITROGEN 34 MG/DL (7-18)
[2017-03-06 15:23] LABS: APTT (PATIENT) 27.3 SEC (24.3-30.1); INTERNATIONAL NORMALIZED RATIO 1.1 RATIO; PROTHROMBIN TIME - PATIENT 11.9 SEC (9.8-11.6)
[2017-03-06 15:24] LABS: ALT (GPT) 33 U/L (10-53); AST (GOT) 46 U/L (15-37); GLOMERULAR FILTRATION RATE 54 ML/MIN (>89)
[2017-03-06 15:26] LABS: TOTAL BILIRUBIN ADULT 2.6 MG/DL (0.2-1.0)
[2017-03-06 15:27] LABS: ALKALINE PHOSPHATASE 147 U/L (45-117); CREATINE KINASE 105 U/L (26-192)
[2017-03-06 15:39] LABS: CKMB 0.8 NG/ML (0.5-3.6)
[2017-03-06 15:56] LABS: BLOOD, URINE NEG (NEG); GLUCOSE,URINE NEG (NEG); KETONE, URINE NEG (NEG); NITRITE,URINE NEG (NEG)
[2017-03-06 16:01] LABS: URINE COLOR AMBER (YELLW/STRAW)
[2017-03-06 16:03] VITALS: BP 105/58; PULSE 48; RESP 18; O2SAT 97
[2017-03-06 16:03] LABS: GRANULAR CAST, URINE 0-2 /lpf
[2017-03-06 16:05] LABS: COMMENT (UR) CULT NOT INDICATED; CULTURE IF INDICATED CULT NOT INDICATED; RBC, URINE 0-3 /hpf (0-3); RED BLOOD CELL CAST, URINE 0-2 /lpf; SQUAMOUS EPITHELIAL CELL URINE 0-5 /hpf (0-5); WBC, URINE 0-2 /hpf (0-5)
[2017-03-06 16:26] LABS: PLATELET ESTIMATE SMEAR LOW (NORMAL); SCAN/DIFF AUTO DIFF CONFIRMED
--- NOTE | 2017-03-07 20:23 | EKG ---
Date Performed: 03/06/2017 Time Performed: 15:00:06 PTAGE: 76 years EKG: Sinus bradycardia with sinus arrhythmia Anterior T wave changes are nonspecific ST-T abnorm alities less prominent Compared to previous tracing Borderline ECG PREVIOUS TRACING : 09/04/2016 09.47 DOCTOR: Leander Carranza Interpretating Date/Time 03/07/2017 20:22:58
[2017-04-15] MEDS ORDERED: COUM1TAB PO (12:16)
== END 2017-03-06 17:21 | disposition home or self-care (01) ==
LOC: PHED 13:45
DX: R53.1 Weakness (principal); R19.7 Diarrhea, unspecified; D69.6 Thrombocytopenia, unspecified; R00.1 Bradycardia, unspecified; R05 Cough; E78.00 Pure hypercholesterolemia, unspecified; I50.9 Heart failure, unspecified; E11.9 Type 2 diabetes mellitus without complications; K21.9 Gastro-esophageal reflux disease without esophagitis; I10 Essential (primary) hypertension; K74.60 Unspecified cirrhosis of liver; Z95.2 Presence of prosthetic heart valve
CPT/HCPCS: 71010; 80053; 81001; 82550; 82552; 83690; 83735; 83880; 84484; 85025; 85610; 85730; 87804; 93005; 96360; 99284; J7030

== ENCOUNTER 2017-03-11 22:46 | Inpatient (IN) | payer MEDICARE, OTHER ==
[2017-03-11] VITALS (7 sets, daily range): BP systolic 83–103; BP diastolic 41–57; PULSE 97–142; RESP 18–22; TEMP 98.3–99.3; O2SAT 96–97
[~2017-03-11] VITALS: Ht 165.1 cm; Wt 70.7 kg
[~2017-03-11 22:46] MED LIST changes: -CLOB0.055 TOPICAL; -NAPR220T95 PO
--- NOTE | 2017-03-11 23:27 | PD ---
HPI Chief Complaint: General Weakness Time Seen by Provider: 23:07 Travel History International Travel<30 days: No Contact w/Intl Traveler<30days: No Traveled to known affect area: No History of Present Illness HPI This 76-year-old female is complaining of generalized weakness. She says that she's been extremely tired and has been sleeping 22 out of 24 hours for the past week or so. She started to feel little bit better today but then tonight got extremely weak she has a history of diabetes and primary biliary cirrhosis. She was being considered for transplant at one time. She has a history of aortic valve replacement because of severe aortic stenosis. It was replaced with a bovine valve. She is not on anticoagulants. She has a history of a low platelet count. Her coronary arteries were normal at the time of her valve replacement This was done about 4 years ago she has had several EKGs done. Her EKG usually shows sinus bradycardia. She has a history of hypothyroidism and is on Synthroid PFSH Past Medical History Arthritis: Yes Asthma: No Anxiety: No Depression: No Heart Rhythm Problems: No Cancer: No Cardiovascular Problems: Yes High Cholesterol: Yes Chest Pain: No Congestive Heart Failure: Yes Cirrhosis: Yes (STAGE 4 CHRONIC BILLARY) COPD: No Cerebrovascular Accident: No Diabetes: Yes Patient Takes Glucophage: No Diminished Hearing: No Endocrine: Yes Gastrointestinal Disorders: Yes (GERD) GERD: Yes Genitourinary: No Headaches: No Hepatitis: No Hiatal Hernia: Yes Hypertension: Yes Immune Disorder: No Implanted Vascular Access Dvce: No Medical other: Yes (L HAND ) Musculoskeletal: Yes (BACK PAIN, BROKEN PELVIS 2016(NO SURGERY)) Neurologic: No Psychiatric: No Reproductive: No Respiratory: Yes Immunizations Current: Yes Migraines: No Renal Failure: No Seizures: No Thyroid Disease: Yes Ulcer: No Tetanus Vaccination: < 5 Years Influenza Vaccination: Yes Menopausal: Yes Past Surgical History Abdominal Surgery: Yes (APPY) AICD: No Appendectomy: Yes (1950) Body Medical Devices: ATRIAL VALVE Cardiac Surgery: Yes (VALVE REPLACEMENT) Cholecystectomy: Yes (2005) Ear Surgery: No Endocrine Surgery: No Eye Surgery: Yes (cataract) Genitourinary Surgery: No Gynecologic Surgery: Yes (HYSTERECTOMY) Hysterectomy: Yes Joint Replacement: No Neurologic Surgery: No Oral Surgery: No Pacemaker: No Thoracic Surgery: No Valve Replacement: Yes (ATRIAL VALVE REPLACEMENT MODEL 3000FTX) Other Surgery: Yes (ATRIAL STENOSIS REPAIR BOVINE VALVE, MENISCUS REPAIR) Social History Alcohol Use: Yes (social) Tobacco Use: No Substance Use: No Allergies-Medications (Allergen,Severity, Reaction): Coded Allergies: Macrobid (Unverified Allergy, Severe, itching, 03/11/17) Adhesives (Verified Allergy, Intermediate, REDNESS, ITCHING, 03/11/17) Ampicillin (Verified Allergy, Mild, 03/11/17) Contrast Media (Verified Allergy, Mild, 03/11/17) Iodine (Verified Allergy, Mild, 03/11/17) Levaquin (Verified Allergy, Mild, 03/11/17) Sulfa (Verified Allergy, Mild, 03/11/17) *MDRO Multi-Drug Resistant Organism (Verified Adverse Reaction, Unknown, ) 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 Cleared by Infection Control. Reported Meds & Prescriptions Reported Meds & Active Scripts Active Reported Novolog Inj (Insulin Aspart) 1,000 Unit/10 Ml Vial 0 SQ DIRECTED Sliding Scale as directed. Spironolactone 25 Mg Tab 25 Mg PO DAILY Proair Hfa 8.5 GM Inh (Albuterol Sulfate) 90 Mcg/Act Aer 2 Puff INH Q4-6H PRN 108 mcg/actuation Metanx (d-[id number]-[id number]) 1 Cap 1 Caplet PO BID Tresiba Flextouch Pen Inj (Insulin Degludec Inj) 300 unit/3 ML Pen 10 Units SQ AC BREAKFAST Premarin (Estrogens Conjugated) 0.3 Mg Tab 0.3 Mg PO DIRECTED 3 TIMES A WEEK Lasix (Furosemide) 20 Mg Tab 20 Mg PO 2XWEEK Losartan (Losartan Potassium) 100 Mg Tab 100 Mg PO DAILY Omeprazole 20 Mg Tab 20 Mg PO DAILY Lipitor (Atorvastatin Calcium) 10 Mg Tab 10 Mg PO HS Synthroid (Levothyroxine Sodium) 100 Mcg Tab 100 Mcg PO DAILY Multi-Vitamin Daily (Multiple Vitamin) 1 Tab Tab 1 Tab PO DAILY Mckenna 250 (Ursodiol) 250 Mg Tab 500 Mg PO BID Review of Systems General / Constitutional: Positive: Fever, No: Chills Eyes: No: Diploplia, Blurred Vision HENT: No: Headaches, Vertigo Cardiovascular: No: Chest Pain or Discomfort, Palpitations Respiratory: Positive: Shortness of Breath, No: Cough Gastrointestinal: No: Nausea, Vomiting Genitourinary: No: Urgency, Frequency Musculoskeletal: No: Myalgias, Arthralgias Skin: No Rash, No Itching Neurologic: Positive: Weakness, No: Dizziness, Change in Mentation Endocrine: No: Heat Intolerance, Cold Intolerance Hematologic/Lymphatic: Positive: Easy Bruising Physical Exam Narrative GENERAL: Well-developed female SKIN: Focused skin assessment warm/dry. HEAD: Atraumatic. Normocephalic. EYES: Pupils equal and round. No scleral icterus. No injection or drainage. ENT: No nasal bleeding or discharge. Mucous membranes pink and moist. NECK: Trachea midline. No JVD. CARDIOVASCULAR: Irregular rapid rate and rhythm. No murmur appreciated. RESPIRATORY: No accessory muscle use. Clear to auscultation. Breath sounds equal bilaterally. GASTROINTESTINAL: Abdomen soft, non-tender, nondistended. Hepatic and splenic margins not palpable. MUSCULOSKELETAL: No obvious deformities. No clubbing. No cyanosis. Trace edema. NEUROLOGICAL: Awake and alert. No obvious cranial nerve deficits. Motor grossly within normal limits. Normal speech. PSYCHIATRIC: Appropriate mood and affect; insight and judgment normal. Data Data Last Documented VS Vital Signs Date Time Temp Pulse Resp B/P Pulse Ox O2 Delivery O2 Flow Rate FiO2 03/11/17 23:55 124 22 83/41 96 Room Air 03/11/17 22:52 99.3 Orders Electrocardiogram (03/11/17 23:13) Complete Blood Count With Diff (03/11/17 23:13) Comprehensive Metabolic Panel (03/11/17 23:13) Troponin I (03/11/17 23:13) B-Type Natriuretic Peptide (03/11/17 23:13) Prothrombin Time / Inr (Pt) (03/11/17 23:13) Act Partial Throm Time (Ptt) (03/11/17 23:13) Urinalysis - C+S If Indicated (03/11/17 23:13) Magnesium (Mg) (03/11/17 23:13) Thyroid Stimulating Hormone (03/11/17 23:13) Chest, Single Ap (03/11/17 23:13) Ecg Monitoring (03/11/17 23:23) Blood Pressure (03/11/17 23:23) Iv Access Insert/Monitor (03/11/17 23:23) Oximetry (03/11/17 23:23) Vital Signs (03/11/17 23:23) Diltiazem Inj (Cardizem Inj) (03/11/17 23:30) Sodium Chloride 0.9% Flush (Ns Flush) (03/11/17 23:30) Diltiazem Inj (Cardizem Inj) (03/11/17 23:30) Blood Culture (03/11/17 23:27) Sodium Chlor 0.9% 250 Ml Inj (Ns 250 Ml (03/12/17 00:15) Magnesium Oxide (Mag-Ox) (03/12/17 00:15) Digoxin Inj (Lanoxin Inj) (03/12/17 00:15) Enoxaparin Inj (Lovenox Inj) (03/12/17 00:30) Labs Laboratory Tests Test 03/11/17 23:41 White Blood Count 13.9 TH/MM3 Red Blood Count 4.50 MIL/MM3 Hemoglobin 12.8 GM/DL Hematocrit 38.3 % Mean Corpuscular Volume 85.1 FL Mean Corpuscular Hemoglobin 28.5 PG Mean Corpuscular Hemoglobin 33.5 % Concent Red Cell Distribution Width 14.7 % Platelet Count 148 TH/MM3 Mean Platelet Volume 7.9 FL Neutrophils (%) (Auto) 94.8 % Lymphocytes (%) (Auto) 2.5 % Monocytes (%) (Auto) 1.1 % Eosinophils (%) (Auto) 0.2 % Basophils (%) (Auto) 1.4 % Neutrophils # (Auto) 13.2 TH/MM3 Lymphocytes # (Auto) 0.3 TH/MM3 Monocytes # (Auto) 0.2 TH/MM3 Eosinophils # (Auto) 0.0 TH/MM3 Basophils # (Auto) 0.2 TH/MM3 CBC Comment AUTO DIFF Differential Comment AUTO DIFF CONFIRMED Platelet Estimate LOW Platelet Morphology Comment NORMAL Red Cell Morphology Comment NORMAL Prothrombin Time 13.2 SEC Prothromb Time International 1.2 RATIO Ratio Activated Partial 26.7 SEC Thromboplast Time Sodium Level 135 MEQ/L Potassium Level 3.9 MEQ/L Chloride Level 104 MEQ/L Carbon Dioxide Level 20.0 MEQ/L Anion Gap 11 MEQ/L Blood Urea Nitrogen 18 MG/DL Creatinine 1.00 MG/DL Estimat Glomerular Filtration 54 ML/MIN Rate Random Glucose 168 MG/DL Calcium Level 8.2 MG/DL Magnesium Level 1.4 MG/DL Total Bilirubin 2.8 MG/DL Aspartate Amino Transf 32 U/L (AST/SGOT) Alanine Aminotransferase 23 U/L (ALT/SGPT) Alkaline Phosphatase 206 U/L Troponin I 0.06 NG/ML Total Protein 6.9 GM/DL Albumin 2.5 GM/DL Thyroid Stimulating Hormone 0.281 uIU/ML 3rd Gen [facility] Medical Decision Making Medical Screen Exam Complete: Yes Emergency Medical Condition: Yes Medical Record Reviewed: Yes Differential Diagnosis Differential includes anemia, electrolyte imbalance, dysrhythmia, CHF Narrative Course EKG shows atrial flutter with rapid ventricular response. The ventricular rate is 119. Her creatinine is normal. Her hemoglobin is 12.8 with a white count of 13,000. Troponin level is 0.06 and her magnesium is 1.4. Patient was initially just about a milligram of diltiazem and after this her blood pressure dropped. The diltiazem has been stopped. I have spoken with Dr. Payne and he recommends 0.5 mg of digoxin now 0.254 hours. He also recommends Lovenox. Diagnosis Primary Impression: Atrial flutter with rapid ventricular response To Weaver MD Mar 11, 2017 23:27
[2017-03-11] MEDS ORDERED: DILTIAZEM HCL 25 MG/5 ML VIAL IV ONE (23:30)
[2017-03-11] MEDS ORDERED: DILTIAZEM INJ 125 MG in SODIUM CHLORIDE 0.9% INJ 100 ML IV SCH (23:30)
[2017-03-11] MEDS ORDERED: SODIUM CHLORIDE 0.9% FLUSH 10 ML FLUSH IVF PRN (23:30)
--- NOTE | 2017-03-11 23:34 | RADHPO ---
EXAM DATE/TIME: 03/11/2017 23:27 [facility] COMPARISON: CHEST SINGLE AP, March 06, 2017, 14:51. INDICATIONS : Weakness and flu like symptoms. MEDICAL HISTORY : Hypertension. Diabetes mellitus type II. Congestive heart failure. Liver disease. Hiatal hernia. SURGICAL HISTORY : Appendectomy. Cholecystectomy. Atrial valve repair. Hiatal hernia repair. Conary stent. ENCOUNTER: Initial ACUITY: 2 weeks PAIN SCORE: 0/10 LOCATION: Bilateral chest FINDINGS: A single view of the chest demonstrates the lungs to be symmetrically aerated without evidence of mas s, infiltrate or effusion. The cardiomediastinal contours are unremarkable and stable. There is anne-marie dence of previous cardiothoracic surgery. Osseous structures are intact and stable. No significant ch anges compared to the prior study. CONCLUSION: No acute disease. No significant change has occurred. Fady Garcia MD on March 11, 2017 at 23:32 Board Certified Radiologist. This report was verified electronically.
[2017-03-11 23:49] LABS: AUTOMATED NEUTROPHIL # 13.2 TH/MM3 (1.8-7.7); BASOPHIL # 0.2 TH/MM3 (0-0.2); BASOPHIL % 1.4 % (0.0-2.0); EOSINOPHIL % 0.2 % (0.0-4.0); HEMATOCRIT 38.3 % (35.0-46.0); LYMPH % 2.5 % (9.0-44.0); LYMPHOCYTE # 0.3 TH/MM3 (1.0-4.8); MEAN CELL VOLUME 85.1 FL (80.0-100.0); MEAN CORPUSCULAR HEMOGLOBIN 28.5 PG (27.0-34.0); MEAN CORPUSCULAR HGB CONC 33.5 % (32.0-36.0); MONO % 1.1 % (0.0-8.0); NEUT % 94.8 % (16.0-70.0); PLATELET COUNT 148 TH/MM3 (150-450); RED CELL DISTRIBUTION WIDTH 14.7 % (11.6-17.2); WHITE BLOOD COUNT 13.9 TH/MM3 (4.0-11.0)
[2017-03-11 23:56] LABS: HEMO FLAGS AUTO DIFF
[2017-03-11 23:59] LABS: CHLORIDE 104 MEQ/L (98-107); POTASSIUM 3.9 MEQ/L (3.5-5.1); SODIUM (NA) 135 MEQ/L (136-145)
[2017-03-12] VITALS (20 sets, daily range): BP systolic 86–155; BP diastolic 43–71; PULSE 55–117; RESP 16–34; TEMP 97.6–103; O2SAT 95–100
[2017-03-12 00:02] LABS: ANION GAP 11 MEQ/L (5-15); BLOOD UREA NITROGEN 18 MG/DL (7-18); MAGNESIUM 1.4 MG/DL (1.5-2.5)
[2017-03-12 00:04] LABS: APTT (PATIENT) 26.7 SEC (24.3-30.1); INTERNATIONAL NORMALIZED RATIO 1.2 RATIO; PROTHROMBIN TIME - PATIENT 13.2 SEC (9.8-11.6)
[2017-03-12 00:05] LABS: ALT (GPT) 23 U/L (10-53); AST (GOT) 32 U/L (15-37); GLOMERULAR FILTRATION RATE 54 ML/MIN (>89)
[2017-03-12 00:07] LABS: TOTAL BILIRUBIN ADULT 2.8 MG/DL (0.2-1.0)
[2017-03-12 00:08] LABS: ALKALINE PHOSPHATASE 206 U/L (45-117)
[2017-03-12] MEDS ORDERED: SODIUM CHLOR 0.9% 250 ML INJ 250 ML IV ONE (00:15)
[2017-03-12] MEDS ORDERED: DIGOXIN 0.5 MG/2 ML VIAL IV PUSH ONE ×2 (00:15→04:00)
[2017-03-12] MEDS ORDERED: MAGNESIUM OXIDE 400 MG TAB PO ONE (00:15)
[2017-03-12 00:17] LABS: PLATELET ESTIMATE SMEAR LOW (NORMAL); PLATELET MORPHOLOGY NORMAL (NORMAL); SCAN/DIFF AUTO DIFF CONFIRMED
[2017-03-12] MEDS ORDERED: ENOXAPARIN SODIUM 60 MG/0.6 ML SYRINGE SQ ONE (00:30)
[2017-03-12] MEDS ORDERED: MAGNESIUM SULFATE 1 GM PREMIX 100 ML IV SCH (01:00)
[2017-03-12] MEDS ORDERED: NALOXONE HCL 0.4 MG/ML AMP IV PRN (01:00)
[2017-03-12] MEDS ORDERED: SODIUM CHLORIDE 0.9% FLUSH 10 ML FLUSH IV FLUSH PRN (01:00)
[2017-03-12 01:13] LABS: BLOOD, URINE NEG (NEG); GLUCOSE,URINE NEG (NEG); KETONE, URINE TRACE mg/dL (NEG); NITRITE,URINE NEG (NEG); PH, URINE 5.5 (5.0-8.5)
[2017-03-12 01:26] LABS: URINE COLOR AMBER (YELLW/STRAW)
[2017-03-12 01:27] LABS: BACTERIA, URINE MOD /hpf; MUCUS URINE MANY /lpf (OCC); SQUAMOUS EPITHELIAL CELL URINE > 8 /hpf (0-5)
[2017-03-12 01:28] LABS: WBC, URINE 0-2 /hpf (0-5)
[2017-03-12 01:32] LABS: COMMENT (UR) CULTURE INDICATED; CULTURE IF INDICATED CULTURE INDICATED
[2017-03-12 08:15] LABS: AUTOMATED NEUTROPHIL # 16.5 TH/MM3 (1.8-7.7); BASOPHIL # 0.1 TH/MM3 (0-0.2); BASOPHIL % 0.8 % (0.0-2.0); EOSINOPHIL % 0.2 % (0.0-4.0); HEMATOCRIT 34.4 % (35.0-46.0); LYMPH % 4.8 % (9.0-44.0); LYMPHOCYTE # 0.9 TH/MM3 (1.0-4.8); MEAN CELL VOLUME 86.2 FL (80.0-100.0); MEAN CORPUSCULAR HEMOGLOBIN 28.8 PG (27.0-34.0); MEAN CORPUSCULAR HGB CONC 33.4 % (32.0-36.0); MONO % 3.5 % (0.0-8.0); NEUT % 90.7 % (16.0-70.0); PLATELET COUNT 123 TH/MM3 (150-450); RED BLOOD COUNT 3.99 MIL/MM3 (4.00-5.30); RED CELL DISTRIBUTION WIDTH 14.4 % (11.6-17.2); WHITE BLOOD COUNT 18.1 TH/MM3 (4.0-11.0)
[2017-03-12 08:18] LABS: HEMO FLAGS AUTO DIFF
[2017-03-12 08:42] LABS: ALKALINE PHOSPHATASE 162 U/L (45-117); ALT (GPT) 21 U/L (10-53); ANION GAP 9 MEQ/L (5-15); AST (GOT) 30 U/L (15-37); BICARBONATE 21.9 MEQ/L (21.0-32.0); BLOOD UREA NITROGEN 19 MG/DL (7-18); CHLORIDE 104 MEQ/L (98-107); GLOMERULAR FILTRATION RATE 67 ML/MIN (>89); MAGNESIUM 1.9 MG/DL (1.5-2.5); POTASSIUM 4.8 MEQ/L (3.5-5.1); SODIUM (NA) 135 MEQ/L (136-145); TOTAL BILIRUBIN ADULT 2.7 MG/DL (0.2-1.0)
[2017-03-12 08:44] LABS: CREATINE KINASE 98 U/L (26-192)
[2017-03-12 08:51] LABS: SCAN/DIFF AUTO DIFF CONFIRMED
[2017-03-12] MEDS: SODIUM CHLORIDE 0.9% FLUSH 10 ML FLUSH IV FLUSH SCH ×2 (09:00→21:00)
[2017-03-12 09:49] LABS: FREE T3 0.82 PG/ML (2.18-3.98); FREE T4 1.61 NG/DL (0.76-1.46)
--- NOTE | 2017-03-12 10:21 | HHI.HP ---
HPI Service [facility] Primary Care Physician Bonnie Campos MD Admission Diagnosis ATRIAL FLUTTER WITH RVR Diagnoses: Chief Complaint: Generalized weakness. Travel History International Travel<30 Days: No Contact w/Intl Traveler <30 Da: No Traveled to Known Affected Are: No History of Present Illness Ms. Jerome is a pleasant 76 year old female with a history of severe aortic stenosis s/p AVR (bovine valve), primary biliary cirrhosis, DM who presented to the ED on 03/11/2017 due to generalized weakness. She has been very tired and sleeping most of the hours. She reports fever off and on and yesterday she had chills. She reports some chronic cough. Patient reports no recent abx use and reports 10 day duration of diarrhea. She took imodium at home and her diarrhea transiently improved. She has not had any diarrhea in the hospital yet. Patient denies any headache, or changes in vision. Denies any weight loss. No dysuria or hematuria. Review of Systems Except as stated in HPI: all other systems reviewed are Neg Past Family Social History Past Medical History Severe aortic stenosis. Primary biliary cirrhosis. Diabetes melliuts Past Surgical History Appendectomy, AVR, Hysterectomy Reported Medications Novolog Inj (Insulin Aspart) 1,000 Unit/10 Ml Vial 0 SQ DIRECTED Sliding Scale as directed. Spironolactone 25 Mg Tab 25 Mg PO DAILY Proair Hfa 8.5 GM Inh (Albuterol Sulfate) 90 Mcg/Act Aer 2 Puff INH Q4-6H PRN 108 mcg/actuation Metanx (k-Yxhrwhgrqldx-Vcxsl) 1 Cap 1 Caplet PO BID Tresiba Flextouch Pen Inj (Insulin Degludec Inj) 300 unit/3 ML Pen 10 Units SQ AC BREAKFAST Premarin (Estrogens Conjugated) 0.3 Mg Tab 0.3 Mg PO DIRECTED 3 TIMES A WEEK Lasix (Furosemide) 20 Mg Tab 20 Mg PO 2XWEEK Losartan (Losartan Potassium) 100 Mg Tab 100 Mg PO DAILY Omeprazole 20 Mg Tab 20 Mg PO DAILY Lipitor (Atorvastatin Calcium) 10 Mg Tab 10 Mg PO HS Synthroid (Levothyroxine Sodium) 100 Mcg Tab 100 Mcg PO DAILY Multi-Vitamin Daily (Multiple Vitamin) 1 Tab Tab 1 Tab PO DAILY Mckenna 250 (Ursodiol) 250 Mg Tab 500 Mg PO BID Allergies: Coded Allergies: Macrobid (Unverified Allergy, Severe, itching, 03/11/17) Adhesives (Verified Allergy, Intermediate, REDNESS, ITCHING, 03/11/17) Ampicillin (Verified Allergy, Mild, 03/11/17) Contrast Media (Verified Allergy, Mild, 03/11/17) Iodine (Verified Allergy, Mild, 03/11/17) Levaquin (Verified Allergy, Mild, 03/11/17) Sulfa (Verified Allergy, Mild, 03/11/17) *MDRO Multi-Drug Resistant Organism (Verified Adverse Reaction, Unknown, ) 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 Cleared by Infection Control. Family History No family history of Cancer, Alzheimer's or Parkinson's. Social History Drinks alcohol socially. Does not use tobacco or illicit drugs. Physical Exam Vital Signs Vital Signs Date Time Temp Pulse Resp B/P Pulse Ox O2 Delivery O2 Flow Rate FiO2 03/12/17 04:00 108 03/12/17 04:00 108 21 100/51 96 03/12/17 03:33 104 03/12/17 03:33 97.6 104 23 107/67 97 03/12/17 03:20 103 20 100/56 97 03/12/17 03:01 103 19 99/48 98 Room Air 03/12/17 02:20 109 20 91/52 97 Room Air 03/12/17 01:40 109 20 92/56 98 Room Air 03/12/17 01:10 Room Air 03/12/17 01:08 110 22 91/53 96 Room Air 03/12/17 00:33 Room Air 03/12/17 00:32 112 20 95/55 96 Room Air 03/12/17 00:27 117 20 91/43 97 Room Air 03/11/17 23:55 124 22 83/41 96 Room Air 03/11/17 23:50 120 20 83/49 Room Air 03/11/17 23:35 98.3 120 20 85/47 97 Room Air 03/11/17 23:20 122 20 83/49 03/11/17 23:10 133 20 103/57 03/11/17 23:09 95 Room Air 03/11/17 23:07 142 20 03/11/17 22:52 99.3 97 18 99/55 96 Physical Exam GENERAL: This is a well-nourished, well-developed patient, in no apparent distress. SKIN: No rashes, ecchymoses or lesions. Warm and dry. HEAD: Atraumatic. Normocephalic. No temporal or scalp tenderness. EYES: Pupils equal round and reactive. No injection or drainage. ENT: Nose without bleeding, purulent drainage or septal hematoma. Airway patent. NECK: Trachea midline. No lymphadenopathy. Supple, nontender, no meningeal signs. CARDIOVASCULAR: Regular rate, irreg irreg without murmurs, gallops, or rubs. No JVD. RESPIRATORY: Clear to auscultation. Breath sounds equal bilaterally. No wheezes , rales, or rhonchi. GASTROINTESTINAL: Abdomen soft, non-tender, nondistended. No guarding. MUSCULOSKELETAL: Extremities without clubbing, cyanosis, or edema. NEUROLOGICAL: Awake and alert. Cranial nerves II through XII intact. No focal neurological deficits. Normal speech. Laboratory Laboratory Tests Test 03/11/17 03/12/17 03/12/17 23:41 01:08 07:40 White Blood Count 13.9 18.1 Red Blood Count 4.50 3.99 Hemoglobin 12.8 11.5 Hematocrit 38.3 34.4 Mean Corpuscular Volume 85.1 86.2 Mean Corpuscular Hemoglobin 28.5 28.8 Mean Corpuscular Hemoglobin 33.5 33.4 Concent Red Cell Distribution Width 14.7 14.4 Platelet Count 148 123 Mean Platelet Volume 7.9 7.9 Neutrophils (%) (Auto) 94.8 90.7 Lymphocytes (%) (Auto) 2.5 4.8 Monocytes (%) (Auto) 1.1 3.5 Eosinophils (%) (Auto) 0.2 0.2 Basophils (%) (Auto) 1.4 0.8 Neutrophils # (Auto) 13.2 16.5 Lymphocytes # (Auto) 0.3 0.9 Monocytes # (Auto) 0.2 0.6 Eosinophils # (Auto) 0.0 0.0 Basophils # (Auto) 0.2 0.1 CBC Comment AUTO DIFF AUTO DIFF Differential Comment AUTO DIFF AUTO DIFF CONFIRMED CONFIRMED Platelet Estimate LOW Platelet Morphology Comment NORMAL Red Cell Morphology Comment NORMAL Prothrombin Time 13.2 Prothromb Time International 1.2 Ratio Activated Partial 26.7 Thromboplast Time Sodium Level 135 135 Potassium Level 3.9 4.8 Chloride Level 104 104 Carbon Dioxide Level 20.0 21.9 Anion Gap 11 9 Blood Urea Nitrogen 18 19 Creatinine 1.00 0.83 Estimat Glomerular Filtration 54 67 Rate Random Glucose 168 177 Calcium Level 8.2 7.7 Magnesium Level 1.4 1.9 Total Bilirubin 2.8 2.7 Aspartate Amino Transf 32 30 (AST/SGOT) Alanine Aminotransferase 23 21 (ALT/SGPT) Alkaline Phosphatase 206 162 Troponin I 0.06 0.15 B-Type Natriuretic Peptide 639 Total Protein 6.9 6.0 Albumin 2.5 2.1 Thyroid Stimulating Hormone 0.281 3rd Gen Urine Color GENESIS Urine Turbidity SLIGHT Urine pH 5.5 Urine Specific [place] 1.016 Urine Protein TRACE Urine Glucose (UA) NEG Urine Ketones TRACE Urine Occult Blood NEG Urine Nitrite NEG Urine Bilirubin SMALL Urine Leukocyte Esterase NEG Urine WBC 0-2 Urine Squamous Epithelial > 8 Cells Urine Amorphous Sediment SMALL Urine Bacteria MOD Urine Hyaline Casts 3-5 Urine Granular Casts 3-5 Urine Fine Granular Casts 0-2 Urine Coarse Granular Casts Urine Mucus MANY Microscopic Urinalysis Comment CULTURE INDICATED Total Creatine Kinase 98 Free Thyroxine 1.61 Free Triiodothyronine (T3) 0.82 pg/dL Date/Time Procedure Status Source Growth 03/12/17 01:08 Urine Culture Received Urine Clean Catch Pending 03/11/17 23:41 Aerobic Blood Culture Received Blood Peripheral Pending 03/11/17 23:41 Anaerobic Blood Culture Received Blood Peripheral Pending Result Diagram: 03/12/17 0740 03/12/17 0740 Imaging Last Impressions Chest X-Ray 03/11/17 2683 Signed Impressions: Service Date/Time: Saturday, March 11, 2017 23:27 - CONCLUSION: No acute disease. No significant change has occurred. Fady Garcia MD Assessment and Plan Assessment and Plan Ms. Jerome is a 76 year old female with a history of Aortic Valve replacement who presented to the ED with generalized weakness and was found to have atrial fibrillation. - Atrial fibrillation - Severe aortic stenosis s/p Bovine prosthetic valve - Patient's blood pressure dropped on Cardizem. Currently, BP is within reasonable range and so is heart rate. - [id number] score is at least 4 (female, Age, Diabetes). Due to valvular involvement, patient will likely benefit from warfarin. - Discussed with Dr. Monsalve who will evaluate patient. - Diarrhea - going on for about 10 days prior to this admission - Will get C. Diff PCR. Start Flagyl 500mg TID PO Full code. Physician Certification 2 Midnight Certification Type: Admission for Inpatient Services Order for Inpatient Services The services are ordered in accordance with Medicare regulations or non- Medicare payer requirements, as applicable. In the case of services not specified as inpatient-only, they are appropriately provided as inpatient services in accordance with the 2-midnight benchmark. Estimated LOS (days): 2 days is the estimated time the patient will need to remain in the hospital, assuming treatment plan goals are met and no additional complications. Post-Hospital Plan: Home Marlene Jon DO Mar 12, 2017 10:21
[2017-03-12] MEDS: INSULIN ASPART SUPPLEMENTAL SCALE SQ SCH ×3 (11:00→22:03)
[2017-03-12] MEDS ORDERED: GLUCAGON 1 MG/ML VIAL OTHER PRN (11:00)
[2017-03-12] MEDS ORDERED: RESP: ALBUTEROL 2.5 MG/IPRATROPIUM 0.5 MG NEB (PRN) NEB (11:00)
[2017-03-12] MEDS ORDERED: DEXTROSE 50% IN WATER 50 ML VIAL(D50) IV PUSH PRN (11:00)
[2017-03-12] MEDS: metroNIDAZOLE 500 MG TAB PO SCH ×3 (12:17→23:10)
[2017-03-12] MEDS ORDERED: ONDANSETRON HCL 4 MG/2 ML VIAL ONE (18:59)
--- NOTE | 2017-03-12 19:28 | RADHPO ---
EXAM DATE/TIME: 03/12/2017 19:02 [facility] COMPARISON: CT BRAIN W/O CONTRAST, June 23, 2015, 22:53. INDICATIONS : Stroke alert, altered mental status. RADIATION DOSE: 68.25 CTDIvol (mGy) This report was called by Dr. Lazar to Dr. Esposito at 7: 25 PM MEDICAL HISTORY : Non-responsive. SURGICAL HISTORY : Non-responsive. ENCOUNTER: Initial ACUITY: 1 day PAIN SCALE: 0/10 LOCATION: cranial TECHNIQUE: Multiple contiguous axial images were obtained of the head. Using automated exposure control and adj ustment of the mA and/or kV according to patient size, radiation dose was kept as low as reasonably a chievable to obtain optimal diagnostic quality images. FINDINGS: CEREBRUM: The ventricles are normal for age. No evidence of midline shift, mass lesion, hemorrhage or acute in farction. No extra-axial fluid collections are seen. POSTERIOR FOSSA: The cerebellum and brainstem are intact. The 4th ventricle is midline. The cerebellopontine angle i s unremarkable. EXTRACRANIAL: The visualized portion of the orbits is intact. SKULL: The calvaria is intact. No evidence of skull fracture. CONCLUSION: Negative noncontrast head CT. Reynaldo Lazar MD on March 12, 2017 at 19:26 Board Certified Radiologist. This report was verified electronically.
--- NOTE | 2017-03-12 19:37 | PD ---
Data Data Last Documented VS Vital Signs Date Time Temp Pulse Resp B/P Pulse Ox O2 Delivery O2 Flow Rate FiO2 03/12/17 00:33 Room Air 03/12/17 00:32 112 20 95/55 96 03/11/17 23:35 98.3 Orders Electrocardiogram (03/11/17 23:13) Complete Blood Count With Diff (03/11/17 23:13) Comprehensive Metabolic Panel (03/11/17 23:13) Troponin I (03/11/17 23:13) B-Type Natriuretic Peptide (03/11/17 23:13) Prothrombin Time / Inr (Pt) (03/11/17 23:13) Act Partial Throm Time (Ptt) (03/11/17 23:13) Urinalysis - C+S If Indicated (03/11/17 23:13) Magnesium (Mg) (03/11/17 23:13) Thyroid Stimulating Hormone (03/11/17 23:13) Chest, Single Ap (03/11/17 23:13) Ecg Monitoring (03/11/17 23:23) Blood Pressure (03/11/17 23:23) Iv Access Insert/Monitor (03/11/17 23:23) Oximetry (03/11/17 23:23) Vital Signs (03/11/17 23:23) Diltiazem Inj (Cardizem Inj) (03/11/17 23:30) Sodium Chloride 0.9% Flush (Ns Flush) (03/11/17 23:30) Diltiazem Inj (Cardizem Inj) (03/11/17 23:30) Blood Culture (03/11/17 23:27) Sodium Chlor 0.9% 250 Ml Inj (Ns 250 Ml (03/12/17 00:15) Magnesium Oxide (Mag-Ox) (03/12/17 00:15) Digoxin Inj (Lanoxin Inj) (03/12/17 00:15) Enoxaparin Inj (Lovenox Inj) (03/12/17 00:30) Admit Order (Ed Use Only) (03/12/17 00:43) Labs Laboratory Tests Test 03/11/17 23:41 White Blood Count 13.9 TH/MM3 Red Blood Count 4.50 MIL/MM3 Hemoglobin 12.8 GM/DL Hematocrit 38.3 % Mean Corpuscular Volume 85.1 FL Mean Corpuscular Hemoglobin 28.5 PG Mean Corpuscular Hemoglobin 33.5 % Concent Red Cell Distribution Width 14.7 % Platelet Count 148 TH/MM3 Mean Platelet Volume 7.9 FL Neutrophils (%) (Auto) 94.8 % Lymphocytes (%) (Auto) 2.5 % Monocytes (%) (Auto) 1.1 % Eosinophils (%) (Auto) 0.2 % Basophils (%) (Auto) 1.4 % Neutrophils # (Auto) 13.2 TH/MM3 Lymphocytes # (Auto) 0.3 TH/MM3 Monocytes # (Auto) 0.2 TH/MM3 Eosinophils # (Auto) 0.0 TH/MM3 Basophils # (Auto) 0.2 TH/MM3 CBC Comment AUTO DIFF Differential Comment AUTO DIFF CONFIRMED Platelet Estimate LOW Platelet Morphology Comment NORMAL Red Cell Morphology Comment NORMAL Prothrombin Time 13.2 SEC Prothromb Time International 1.2 RATIO Ratio Activated Partial 26.7 SEC Thromboplast Time Sodium Level 135 MEQ/L Potassium Level 3.9 MEQ/L Chloride Level 104 MEQ/L Carbon Dioxide Level 20.0 MEQ/L Anion Gap 11 MEQ/L Blood Urea Nitrogen 18 MG/DL Creatinine 1.00 MG/DL Estimat Glomerular Filtration 54 ML/MIN Rate Random Glucose 168 MG/DL Calcium Level 8.2 MG/DL Magnesium Level 1.4 MG/DL Total Bilirubin 2.8 MG/DL Aspartate Amino Transf 32 U/L (AST/SGOT) Alanine Aminotransferase 23 U/L (ALT/SGPT) Alkaline Phosphatase 206 U/L Troponin I 0.06 NG/ML B-Type Natriuretic Peptide 639 PG/ML Total Protein 6.9 GM/DL Albumin 2.5 GM/DL Thyroid Stimulating Hormone 0.281 uIU/ML 3rd Gen [facility] Supervised Visit with MINGO: No Narrative Course Stroke alert documentation: History, Patient nurse Edward called stroke alert, patient was shivering, not as responsive, left pupil was somewhat larger than the right. Patient was not following commands. Stroke alert at approximately 1850. Patient initial NIH stroke scale for Edward was 22. On my initial evaluation, patient is vomiting, somewhat altered GCS of V=4,M=6,E =4. Neuro: CN ii-Xii grossly intact and non-focal. Patient does exhibit some confusion. She slow to respond. Very attentive. Both lower extremity's fall to the bed immediately. Patient has no pronator drift no drift of the upper extremity's. No facial asymmetry. No dysphagia no aphasia. Total NIH score for me is 8. Patient temperature was taken and she is shivering and is 98 orally. Patient was taken to CAT scan her or she had a negative noncontrast CT which was discussed with the radiologist. Patient was then discussed with neurology mercerizing range controller Dr. Vidal and after we have discussed the patient several times the possibilities still include delirium versus stroke. We agree that the safest measure his to perform CT angiogram transfer the [facility] for possible interventional radiology procedure. I discussed the patient's family and the patient has allergy to iodine and contrast media on her chart. They are unsure as to whether the patient is ever had a contrast CT. She ate shellfish one time and had tingling of her lips. This was discussed with the radiologist and we will premedicate her with Benadryl and Solu-Medrol. While preparing for a CT angiogram I have been coordinating with the nursing nurse supervisor here as well as at the [facility] and Dr. Peralta and Dr. Vidal. Ultimately we found placement for the patient in the ICU at the [facility]. Effect was called emergently. Dr. Peralta did except care of the patient and accepted for transfer after discussion with him. CT angiogram was performed after I had started an ultrasound-guided 20-gauge the right antecubital fossa. While while starting that IV the patient did feel warm and her temperature was taken again it was 102. I had ordered a set of blood cultures to be drawn off the IV had just started. Admittedly this IV was not ChloraPrep. Lactic acid was drawn and sent as well as CBC and BMP. The patient had orders for UA and chest x-ray which could not be performed prior to transfer. CT angiography was performed and showed no obvious vessel signal dropout. Patient was loaded from the CT table onto the EMS stretcher. She currently has stable vital signs is protecting her airway and has a GCS of 14 for some mild confusion. She is stable for transfer at this time. Dr. Chavez is the covering hospitalist the night and she was notified of this patient's change in status An transfer to Dr. Alcantar's service. Critical Care Narrative Aggregate critical care time was 65 minutes. Time to perform other separately billable procedures was not included in the critical care time. My time did not include minutes spent treating any other patients simultaneously or on activities that did not directly contribute to the patient's treatment. The services I provided to this patient were to treat and/or prevent clinically significant deterioration that could result in: , disability, organ failure. I provided critical care services requiring my management, as noted below: Chart data review, documentation time, medication orders and management, vital sign assessments/reviewing monitor data, ordering and reviewing lab tests, ordering and interpreting/reviewing x-rays and diagnostic studies, care of the patient and discussion of the patient with the admitting physicians. Multiple phone calls that he made to multiple consultants as well as both nursing supervisors and EMS. Also had to coordinate with CAT scan. Diagnosis Primary Impression: Altered mental status Additional Impressions: Fever Delirium Stroke Disposition: 70 TRANSFER TO OTHER FACILITY Condition: Stable Kendall Esposito MD Mar 12, 2017 19:37
[2017-03-12] MEDS ORDERED: methylPREDNISolone SOD SUCC 125 MG/2 ML VIAL IV PUSH ONE (19:45)
[2017-03-12] MEDS ORDERED: diphenhydrAMINE HCL 50 MG/ML VIAL IV ONE (20:00)
[2017-03-12] MEDS ORDERED: ACETAMINOPHEN 325 MG TAB PO ONE (20:15)
[2017-03-12 20:45] LABS: AUTOMATED NEUTROPHIL # 14.6 TH/MM3 (1.8-7.7); BASOPHIL % 0.3 % (0.0-2.0); EOSINOPHIL % 0.1 % (0.0-4.0); HEMATOCRIT 34.5 % (35.0-46.0); LYMPH % 3.3 % (9.0-44.0); LYMPHOCYTE # 0.5 TH/MM3 (1.0-4.8); MEAN CELL VOLUME 84.9 FL (80.0-100.0); MEAN CORPUSCULAR HEMOGLOBIN 29.1 PG (27.0-34.0); MEAN CORPUSCULAR HGB CONC 34.3 % (32.0-36.0); MONO % 1.7 % (0.0-8.0); NEUT % 94.6 % (16.0-70.0); PLATELET COUNT 154 TH/MM3 (150-450); RED BLOOD COUNT 4.06 MIL/MM3 (4.00-5.30); RED CELL DISTRIBUTION WIDTH 14.3 % (11.6-17.2); WHITE BLOOD COUNT 15.4 TH/MM3 (4.0-11.0)
[2017-03-12 20:46] LABS: HEMO FLAGS DIFF FINAL
[2017-03-12] MEDS ORDERED: IOHEXOL 350 MG/ML 10 ML VIAL (for RAD DIAG) IV ONE (20:49)
[2017-03-12 20:55] LABS: CHLORIDE 102 MEQ/L (98-107); POTASSIUM 4.7 MEQ/L (3.5-5.1); SODIUM (NA) 133 MEQ/L (136-145)
--- NOTE | 2017-03-12 20:57 | RADHPO ---
EXAM DATE/TIME: 03/12/2017 20:22 [facility] COMPARISON: CT BRAIN W/O CONTRAST, March 12, 2017, 19:02. INDICATIONS : Stroke alert, altered mental status. IV CONTRAST: 100 cc Omnipaque 350 (iohexol) IV ; Cumulative dose for multiple exams. RADIATION DOSE: 42.88 CTDIvol (mGy) ; Combined studies MEDICAL HISTORY : Non-responsive. SURGICAL HISTORY : Non-responsive. ENCOUNTER: Initial ACUITY: 1 day PAIN SCALE: 0/10 LOCATION: chest TECHNIQUE: Volumetric scanning was performed using a multi-row detector CT scanner. The data was post processed with a variety of visualization algorithms including full volume maximum intensity projection, multi -planar sliding thin slab reformation, curved planar reformation, and surface rendering techniques. Using automated exposure control and adjustment of the mA and/or kV according to patient size, radiat ion dose was kept as low as reasonably achievable to obtain optimal diagnostic quality images. FINDINGS: There is excellent visualization of the major intracranial arteries out to the second-order branch ve ssels. There is no evidence for aneurysm, vessel truncation or stenosis, and no evidence for vascula r malformation. CONCLUSION: Normal intracranial arteries. Reynaldo Lazar MD on March 12, 2017 at 20:54 Board Certified Radiologist. This report was verified electronically.
[2017-03-12 20:59] LABS: ANION GAP 9 MEQ/L (5-15); BLOOD UREA NITROGEN 18 MG/DL (7-18)
[2017-03-12] MEDS ORDERED: INSULIN DETEMIR 100 UNITS/ML VIAL SQ SCH (21:00)
[2017-03-12 21:02] LABS: ALT (GPT) 21 U/L (10-53); AST (GOT) 35 U/L (15-37); GLOMERULAR FILTRATION RATE 54 ML/MIN (>89)
[2017-03-12 21:03] LABS: TOTAL BILIRUBIN ADULT 2.2 MG/DL (0.2-1.0)
[2017-03-12 21:05] LABS: ALKALINE PHOSPHATASE 176 U/L (45-117)
[2017-03-12] MEDS ORDERED: CHLORHEXIDINE GLUCONATE 2 % 1 PACK (2 CLOTHS)(extra cloths) TOPICAL PRN (21:15)
--- NOTE | 2017-03-12 21:28 | RADHPO ---
EXAM DATE/TIME: 03/12/2017 20:22 [facility] COMPARISON: No previous studies available for comparison. INDICATIONS : Stroke alert, altered mental status. IV CONTRAST: 100 cc Omnipaque 350 (iohexol) IV RADIATION DOSE: 42.88 CTDIvol (mGy) ; Combined studies MEDICAL HISTORY : Non-responsive. SURGICAL HISTORY : Non-responsive. ENCOUNTER: Initial ACUITY: 1 day PAIN SCALE: 0/10 LOCATION: neck Elevated flow velocities and ICA/CCA ratios have been found to correlate with increased degrees of vessel stenosis, calculated as percentage of diameter relative to a normal segment of distal ICA/CCA. TECHNIQUE: Volumetric scanning was performed using a multirow detector CT scanner. The data was post processed with a variety of visualization algorithms including full-volume maximum intensity projection, multip lanar sliding thin-slab reformation, curved-planar reformation, and surface-rendering techniques. Us ing automated exposure control and adjustment of the mA and/or kV according to patient size, radiatio n dose was kept as low as reasonably achievable to obtain optimal diagnostic quality images. FINDINGS: AORTIC ARCH: There is a three-vessel origin of the great vessels from the aorta. No evidence of ostial narrowing. RIGHT CAROTID: Slight noncalcified plaque at the bulb and proximal internal carotid artery. No perceptible narrowing . LEFT CAROTID: Mild calcified plaque seen focally of the bulb/proximal internal carotid artery. No stenosis. VERTEBRALS: Left vertebral artery is dominant. There is tortuosity of the proximal left vertebral artery. No narr owing on either side. CONCLUSION: Slight atherosclerosis of both carotid bifurcations without narrowing. Dominant left vertebral artery . Reynaldo Lazar MD on March 12, 2017 at 21:24 Board Certified Radiologist. This report was verified electronically.
[2017-03-12] MEDS: ATORVASTATIN 10 MG TAB PO SCH (22:01)
--- NOTE | 2017-03-12 23:10 | HHI.HP ---
HPI Service Critical Care Medicine Primary Care Physician Bonnie Campos MD Admission Diagnosis ATRIAL FLUTTER WITH RVR followed by fevers, sweats, headache. Diagnosis: Chief Complaint: Period of loss of memory recently, fevers, headache, sweats, fatigue. Sleeping 20 hours per day. Travel History International Travel<30 Days: No Contact w/Intl Traveler <30 Da: No Traveled to Known Affected Are: No History of Present Illness Ms. Jerome is a pleasant 76 year old female with a history of severe aortic stenosis s/p AVR (bovine valve), primary biliary cirrhosis, DM who presented to the ED on 03/11/2017 due to generalized weakness. She has been very tired and sleeping most of the hours. Review of Systems ROS Diarrhea one day, now resolved. No recent antibiotic use. No vomiting. Fatigue for 10 days, sleeping 20 hours/day. Family states that earlier today she was very altered; no memory by her. 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 Cleared by Infection Control. Physical Exam Vital Signs Vital Signs Date Time Temp Pulse Resp B/P Pulse Ox O2 Delivery O2 Flow Rate FiO2 03/12/17 22:00 60 03/12/17 21:03 103.0 55 16 86/46 99 03/12/17 20:20 102.6 96 03/12/17 20:01 66 34 93/51 03/12/17 19:23 78 24 122/54 03/12/17 19:04 96 3.00 03/12/17 19:04 97 Nasal Cannula 3.00 03/12/17 18:36 80 33 155/71 99 03/12/17 16:22 98 21 03/12/17 16:00 98.2 116 26 98/62 100 03/12/17 16:00 116 03/12/17 12:00 66 03/12/17 12:00 98.0 66 23 108/58 100 03/12/17 08:00 58 03/12/17 08:00 98.2 58 29 95 03/12/17 04:00 108 03/12/17 04:00 108 21 100/51 96 03/12/17 03:33 104 03/12/17 03:33 97.6 104 23 107/67 97 03/12/17 03:20 103 20 100/56 97 03/12/17 03:01 103 19 99/48 98 Room Air 03/12/17 02:20 109 20 91/52 97 Room Air 03/12/17 01:40 109 20 92/56 98 Room Air 03/12/17 01:10 Room Air 03/12/17 01:08 110 22 91/53 96 Room Air 03/12/17 00:33 Room Air 03/12/17 00:32 112 20 95/55 96 Room Air 03/12/17 00:27 117 20 91/43 97 Room Air 03/11/17 23:55 124 22 83/41 96 Room Air 03/11/17 23:50 120 20 83/49 Room Air 03/11/17 23:35 98.3 120 20 85/47 97 Room Air 03/11/17 23:20 122 20 83/49 03/11/17 23:10 133 20 103/57 03/11/17 23:09 95 Room Air Physical Exam P 48, BP 108/72, R 16, T 102.5 Head: Atraumatic. Neck: Supple, airway widely patent. Lungs: Clear, no wheezes or crackles. Heart: Bradycardia, NL S1S2, 2/6 systolic murmur RSB. No JVD. Abdomen: Soft, nontender, no guarding, no peritoneal irrigation. Neuro: O X 3 now, moves 4 limbs to command. Looks weak, pale. CN II-XII intact, symmetrical. Laboratory Laboratory Tests Test 03/11/17 03/12/17 03/12/17 03/12/17 23:41 01:08 07:40 12:15 White Blood Count 13.9 18.1 Red Blood Count 4.50 3.99 Hemoglobin 12.8 11.5 Hematocrit 38.3 34.4 Mean Corpuscular Volume 85.1 86.2 Mean Corpuscular Hemoglobin 28.5 28.8 Mean Corpuscular Hemoglobin 33.5 33.4 Concent Red Cell Distribution Width 14.7 14.4 Platelet Count 148 123 Mean Platelet Volume 7.9 7.9 Neutrophils (%) (Auto) 94.8 90.7 Lymphocytes (%) (Auto) 2.5 4.8 Monocytes (%) (Auto) 1.1 3.5 Eosinophils (%) (Auto) 0.2 0.2 Basophils (%) (Auto) 1.4 0.8 Neutrophils # (Auto) 13.2 16.5 Lymphocytes # (Auto) 0.3 0.9 Monocytes # (Auto) 0.2 0.6 Eosinophils # (Auto) 0.0 0.0 Basophils # (Auto) 0.2 0.1 CBC Comment AUTO DIFF AUTO DIFF Differential Comment AUTO DIFF AUTO DIFF CONFIRMED CONFIRMED Platelet Estimate LOW Platelet Morphology Comment NORMAL Red Cell Morphology Comment NORMAL Prothrombin Time 13.2 Prothromb Time International 1.2 Ratio Activated Partial 26.7 Thromboplast Time Sodium Level 135 135 Potassium Level 3.9 4.8 Chloride Level 104 104 Carbon Dioxide Level 20.0 21.9 Anion Gap 11 9 Blood Urea Nitrogen 18 19 Creatinine 1.00 0.83 Estimat Glomerular Filtration 54 67 Rate Random Glucose 168 177 Calcium Level 8.2 7.7 Magnesium Level 1.4 1.9 Total Bilirubin 2.8 2.7 Aspartate Amino Transf 32 30 (AST/SGOT) Alanine Aminotransferase 23 21 (ALT/SGPT) Alkaline Phosphatase 206 162 Troponin I 0.06 0.15 0.13 B-Type Natriuretic Peptide 639 Total Protein 6.9 6.0 Albumin 2.5 2.1 Thyroid Stimulating Hormone 0.281 3rd Gen Urine Color GENESIS Urine Turbidity SLIGHT Urine pH 5.5 Urine Specific [place] 1.016 Urine Protein TRACE Urine Glucose (UA) NEG Urine Ketones TRACE Urine Occult Blood NEG Urine Nitrite NEG Urine Bilirubin SMALL Urine Leukocyte Esterase NEG Urine WBC 0-2 Urine Squamous Epithelial > 8 Cells Urine Amorphous Sediment SMALL Urine Bacteria MOD Urine Hyaline Casts 3-5 Urine Granular Casts 3-5 Urine Fine Granular Casts 0-2 Urine Coarse Granular Casts Urine Mucus MANY Microscopic Urinalysis Comment CULTURE INDICATED Total Creatine Kinase 98 128 Free Thyroxine 1.61 Free Triiodothyronine (T3) 0.82 pg/dL Test 03/12/17 20:10 White Blood Count 15.4 Red Blood Count 4.06 Hemoglobin 11.8 Hematocrit 34.5 Mean Corpuscular Volume 84.9 Mean Corpuscular Hemoglobin 29.1 Mean Corpuscular Hemoglobin 34.3 Concent Red Cell Distribution Width 14.3 Platelet Count 154 Mean Platelet Volume 7.9 Neutrophils (%) (Auto) 94.6 Lymphocytes (%) (Auto) 3.3 Monocytes (%) (Auto) 1.7 Eosinophils (%) (Auto) 0.1 Basophils (%) (Auto) 0.3 Neutrophils # (Auto) 14.6 Lymphocytes # (Auto) 0.5 Monocytes # (Auto) 0.3 Eosinophils # (Auto) 0.0 Basophils # (Auto) 0.0 CBC Comment DIFF FINAL Differential Comment Sodium Level 133 Potassium Level 4.7 Chloride Level 102 Carbon Dioxide Level 22.0 Anion Gap 9 Blood Urea Nitrogen 18 Creatinine 1.00 Estimat Glomerular Filtration 54 Rate Random Glucose 226 Lactic Acid Level 2.3 Calcium Level 8.0 Total Bilirubin 2.2 Aspartate Amino Transf 35 (AST/SGOT) Alanine Aminotransferase 21 (ALT/SGPT) Alkaline Phosphatase 176 Total Protein 6.2 Albumin 2.2 Blood Type A POSITIVE Antibody Screen NEGATIVE Date/Time Procedure Status Source Growth 03/12/17 20:10 Aerobic Blood Culture Received Blood Arterial Line Pending 03/12/17 20:10 Anaerobic Blood Culture Received Blood Arterial Line Pending 03/12/17 01:08 Urine Culture Received Urine Clean Catch Pending 03/11/17 23:41 Aerobic Blood Culture - Preliminary Resulted Blood Peripheral NO GROWTH IN 1 DAY 03/11/17 23:41 Anaerobic Blood Culture - Preliminary Resulted Blood Peripheral NO GROWTH IN 1 DAY Result Diagram: 03/12/17200903/12/172009 Assessment and Plan Assessment and Plan Assessment: 1. AMS. 2. Fever. 3. Chills. 4. Headache. 5. Paroxysmal a-fib/flutter with RVR. Plan: 1. Sputum, urine, blood cultures. 2. Lumbar Puncture 3. IV hydration. 4. Broad abx coverage after cultures. 5. Protonix. 6. No anticoagulation X 24 hours. 7. Lactic acid. Overall impression: This woman was transferred to the main hospital critically ill and with suspected stroke alert. She is febrile and tachycardic, latter now resolved. Now it appears this is encephalopathy from sepsis - source unclear, but due to ONCOLOGY NAVIGATOR symptoms we will perform LP. Critical care 40 mins aside from procedures. Zelalem Alcantar MD Mar 12, 2017 23:10
[2017-03-12] MEDS ORDERED: MIDAZOLAM HCL 5 MG/ML VIAL (1 ML) ONE (23:24)
[2017-03-12] MEDS ORDERED: MIDAZOLAM HCL 2 MG/2 ML VIAL IV PUSH ONE (23:30)
[2017-03-13] VITALS (14 sets, daily range): BP systolic 74–147; BP diastolic 42–93; PULSE 40–69; RESP 22–25; TEMP 97.2–98.6; O2SAT 97–100
[2017-03-13] MEDS ORDERED: ACETAMINOPHEN 325 MG TAB PO PRN (00:30)
[2017-03-13] MEDS: MAGNESIUM SULFATE 1 GM PREMIX 100 ML IV SCH ×2 (00:32→00:39)
[2017-03-13] MEDS: SODIUM CHLOR 0.9% 1000 ML INJ 1,000 ML IV SCH ×2 (00:32→10:22)
[2017-03-13] MEDS: AZTREONAM INJ 1,000 MG in SODIUM CHLORIDE 0.9% INJ 100 ML IV SCH ×2 (00:33→10:18)
[2017-03-13] MEDS: DOPamine 800 MG/D5W PREMIX 500 ML IV SCH (00:37)
[2017-03-13] MEDS: metroNIDAZOLE 500 MG INJ 100 ML IV SCH ×2 (00:42→10:18)
--- NOTE | 2017-03-13 01:04 | PD.PROCEDR ---
Procedure Note Procedure DX: Acute encephalopathy, headache, fever, leukocytosis OP: Diagnostic Lumbar Puncture (00629) Procedure: Patient turned in right lateral decubitus position. Lumbar region prepped and draped. 1% xylocaine infiltration over L4-5 space. Spinal needle introduced at midline with direct puncture of dura. Clear fluid returned with opening pressure 18 cm H2O. Four tubes filled with fluid for total 12 mls. Sent for routine studies. 4th tube saved in lab for additional studies. Needle withdrawn, dressing applied. Zelalem Alcantar MD Mar 13, 2017 01:04
[2017-03-13 01:05] LABS: LACTIC ACID,CSF 2.7 MMOL/L (0.0-3.0)
[2017-03-13 01:18] LABS: GROSS BLOOD TUBE #1 2+ (0); GROSS BLOOD TUBE #2 1+ (0); SUPERNATE COLOR TUBE #1 CLEAR (CLEAR); SUPERNATE COLOR TUBE #2 CLEAR (CLEAR); VOLUME TUBE # 1 1.8 ML; VOLUME TUBE # 2 3.8 ML; WBC TUBE #1 92 /MM3 (0-10)
[2017-03-13 01:19] LABS: GROSS BLOOD TUBE #3 TR (0); GROSS BLOOD TUBE #4 TR (0); SUPERNATE COLOR TUBE #3 CLEAR (CLEAR); SUPERNATE COLOR TUBE #4 CLEAR (CLEAR); VOLUME TUBE # 4 2.3 ML
[2017-03-13 01:20] LABS: GROSS BLOOD TUBE #3 TR (0); SUPERNATE COLOR TUBE #3 CLEAR (CLEAR); WBC TUBE #3 31 /MM3 (0-10)
[2017-03-13 01:44] LABS: CSF LYMPHOCYTES 3 %; CSF MONOCYTES 14 %; CSF NEUTROPHILS 81 %
[2017-03-13 01:46] LABS: CSF LYMPHOCYTES 4 %; CSF MONOCYTES 17 %; CSF NEUTROPHILS 75 %
[2017-03-13] MEDS: GENTAMICIN SULFATE 80 MG/2 ML VIAL IM SCH ×2 (02:05→08:00)
[2017-03-13 02:22] LABS: AUTOMATED NEUTROPHIL # 21.2 TH/MM3 (1.8-7.7); BASOPHIL % 0.1 % (0.0-2.0); HEMATOCRIT 36.4 % (35.0-46.0); HEMO FLAGS DIFF FINAL; LYMPH % 2.3 % (9.0-44.0); LYMPHOCYTE # 0.5 TH/MM3 (1.0-4.8); MEAN CELL VOLUME 86.1 FL (80.0-100.0); MEAN CORPUSCULAR HEMOGLOBIN 28.1 PG (27.0-34.0); MEAN CORPUSCULAR HGB CONC 32.6 % (32.0-36.0); MONO % 1.5 % (0.0-8.0); NEUT % 96.1 % (16.0-70.0); PLATELET COUNT 126 TH/MM3 (150-450); RED BLOOD COUNT 4.23 MIL/MM3 (4.00-5.30); RED CELL DISTRIBUTION WIDTH 15.6 % (11.6-17.2); WHITE BLOOD COUNT 22.1 TH/MM3 (4.0-11.0)
[2017-03-13 02:34] LABS: BICARBONATE 17.6 MEQ/L (21.0-32.0); POTASSIUM 4.8 MEQ/L (3.5-5.1)
[2017-03-13] MEDS ORDERED: CHLORHEXIDINE GLUCONATE 2 % 1 PACK (2 CLOTHS)(taper/protocol) TOPICAL SCH (04:00)
[2017-03-13] MEDS ORDERED: PHENYLEPHRINE 40 MG/D5W 496 ML ADMIX IV SCH ×2 (04:45)
[2017-03-13] MEDS ORDERED: TERBUTALINE INJ 1 MG/ML AMP SQ PRN (04:45)
[2017-03-13] MEDS: metroNIDAZOLE 500 MG TAB PO SCH (05:49)
[2017-03-13] MEDS: INSULIN ASPART SUPPLEMENTAL SCALE SQ SCH ×3 (05:49→15:59)
[2017-03-13] MEDS ORDERED: LEVOTHYROXINE SODIUM 100 MCG TAB PO SCH (06:00)
[2017-03-13] MEDS ORDERED: SODIUM CHLORIDE 0.9% FLUSH 10 ML FLUSH IVF PRN (08:00)
--- NOTE | 2017-03-13 08:01 | PD.PROCEDR ---
Central Line Procedure REASON FOR PROCEDURE Central venous access PROCEDURE PERFORMED Central line placement: Right IJ CVL CONSENT Informed consent for procedure was obtained from patient. The risks and benefits of the procedure were discussed to include but limited to bleeding, clot formation, infection, and even . ANESTHESIA Local injection of 1% Lidocaine DESCRIPTION OF THE PROCEDURE The patient was placed in supine, mild Trendelenburg position. The area was exposed and cleansed with ChloraPrep, times two. Large sterile drape was used to cover the patient, with the site exposed, under sterile conditions including cap, face mask, sterile gown, and sterile gloves. On single attempt, the introducer needle was inserted with negative pressure in syringe and venous flash was obtained. The guide wire was then advanced without any restriction and the needle was removed. The dilator was used without any complications. Using Seldinger technique the triple-lumen catheter was advanced over the guide wire to a depth of 16 centimeters. The guide wire was removed. All ports were aspirated with dark venous blood return and flushed easily with sterile saline. All ports were capped. Antibiotic disc was placed around central line at puncture site. The central line was secured to the skin with two interrupted 2.0 silk sutures. The area was bandaged with sterile see-through central line bandage. RADIOLOGICAL DATA Ultrasound guidance was used to locate the right internal jugular vein. Doppler /color flow was used to confirm venous flow. COMPLICATIONS: No apparent complications ESTIMATED BLOOD LOSS: Less than 1 cc. Mandeep Velasco MD Mar 13, 2017 08:01
--- NOTE | 2017-03-13 08:06 | HHI.CCPN ---
Subjective Remarks/Hospital Course Ms. Jerome is a pleasant 76 year old female with a history of severe aortic stenosis s/p AVR (bovine valve), primary biliary cirrhosis, DM who presented to the ED on 03/11/2017 due to generalized weakness. She has been very tired and sleeping most of the hours. Subjective 03/13: Currently afebrile. Noted lumbar puncture performed overnight. Glucose possibly inappropriately low otherwise unremarkable. Some red blood cells/ leukocytosis. Currently on aztreonam, gentamicin and Flagyl continued by my colleague. Infectious disease consult and will defer to their recommendations. Awake and alert and oriented 3. On low-dose dopamine at 4 g per kilogram per minute bradycardia denies chest pain, shortness of breath. Objective Vital Signs Date Time Temp Pulse Resp B/P Pulse Ox O2 Delivery O2 Flow Rate FiO2 03/13/17 06:00 45 03/13/17 04:00 98.6 23 74/42 100 03/12/17 19:04 3.00 03/12/17 19:04 Nasal Cannula 03/12/17 16:22 21 Intake and Output 03/12/17 03/12/17 03/13/17 08:00 16:00 00:00 Intake Total 470 ml 480 ml Output Total 700 ml Balance -230 ml 480 ml Result Diagram: 03/13/17 0200 03/13/17 0200 Other Results Microbiology Date/Time Procedure Status Source Growth 03/13/17 02:00 Aerobic Blood Culture Received Blood Arterial Line Pending 03/13/17 02:00 Anaerobic Blood Culture Received Blood Arterial Line Pending 03/12/17 23:40 Gram Stain - Final Resulted Cerebral Spinal Fluid Lumbar Puncture 03/12/17 23:40 CSF Culture Resulted Cerebral Spinal Fluid Lumbar Puncture Pending 03/12/17 01:08 Urine Culture Received Urine Clean Catch Pending 03/11/17 23:41 Aerobic Blood Culture - Preliminary Resulted Blood Peripheral NO GROWTH IN 1 DAY 03/11/17 23:41 Anaerobic Blood Culture - Preliminary Resulted Blood Peripheral NO GROWTH IN 1 DAY Imaging Last Impressions Neck CTA 03/12/17 0000 Signed Impressions: Service Date/Time: Sunday, March 12, 2017 20:22 - CONCLUSION: Slight atherosclerosis of both carotid bifurcations without narrowing. Dominant left vertebral artery. Reynaldo Lazar MD Head CTA 03/12/17 0000 Signed Impressions: Service Date/Time: Sunday, March 12, 2017 20:22 - CONCLUSION: Normal intracranial arteries. Reynaldo Lazar MD Head CT 03/12/17 0000 Signed Impressions: Service Date/Time: Sunday, March 12, 2017 19:02 - CONCLUSION: Negative noncontrast head CT. Reynaldo Lazar MD Chest X-Ray 03/11/17 2313 Signed Impressions: Service Date/Time: Saturday, March 11, 2017 23:27 - CONCLUSION: No acute disease. No significant change has occurred. Fady Garcia MD Objective Remarks GENERAL: 76-year-old female, critically ill currently resting in bed in no acute distress SKIN: Warm and dry. No rash HEAD: Atraumatic. Normocephalic. EYES: Pupils equal and round about 2-3 mm bilaterally and reactive. No scleral icterus. No injection or drainage. ENT: No nasal bleeding or discharge. Mucous membranes pink and moist. NECK: Trachea midline. No JVD. Right IJ is clean dry and intact CARDIOVASCULAR: Bradycardia, NL S1S2, 2/6 systolic murmur RSB. No JVD. RESPIRATORY: No accessory muscle use. Clear to auscultation. Breath sounds equal bilaterally. GASTROINTESTINAL: Abdomen soft, non-tender, nondistended. Hypoactive bowel sounds are appreciated MUSCULOSKELETAL: Extremities without difficulty and peripheral edema. No obvious deformities. NEUROLOGICAL: Awake and alert. No obvious cranial nerve deficits. Motor grossly within normal limits. Five out of 5 muscle strength in the arms and legs. Normal speech. PSYCHIATRIC: Appropriate mood and affect; insight and judgment normal. Vascular Central Line Catheter: Yes Assessment to: Continue Date of Insertion: Mar 13, 2017 Line: Central Venous Catheter Side: Right Location: Internal, Jugular A/P Assessment and Plan Neuro/Psych: Acute encephalopathy CT head/ 03/12 revealed no acute intracranial findings. CTA head 03/12 revealed no acute signs of bleeding/aneurysm CTA neck 03/12 revealed mild plaques bilateral bulb/internal carotid otherwise unremarkable. Discussed with Dr. Vidal /neurology. Likely secondary to underlying sepsis/ bradycardic. Would recommend anticoagulation will discuss with cardiology prior to initiation of heparin drip. Check echocardiogram. CV: Sinus bradycardia History of bioprosthetic aortic valve replacement 2013 [id number] at [facility] Elevated troponin 0.13 Currently on dopamine 4 mcg/kg/m for heart rate management due to bradycardia Holding home medications losartan 100 mg by mouth daily in light of hypotension. Day Lipitor 10 mg by mouth daily for dyslipidemia. EKG/echocardiogram pending Cycle troponins Dr. Monsalve/cardiology consulted Resp: Nasal cannula to maintain saturations greater than equal to 92% Incentive spirometry while awake On ProAir inhaler every 6 hours at home for shortness of breath. GI: Stage IV biliary cirrhosis Gastro esophageal reflux disease Hiatal hernia Hypo-albuminemia Check ammonia On Prilosec 20 mg by mouth daily home for gastroesophageal reflux disease. Substituting Protonix here On spironolactone 25 mg daily and Lasix 20 mg 2 times a week for likely cirrhosis. Currently on hold due to hypotension Continue rosaura 500 mg. Twice a day/home medication for her regular cirrhosis Advanced heart healthy diet : Aggarwal will be placed for accurate I's and O's in a critically ill patient Endo: Diabetes mellitus Hypothyroidism Holding Tresiba/home medication 10 units before meals/at bedtime -Currently on Levemir 7 units at night Sliding scale insulin to maintain euglycemia/low regimen before meals at bedtime Decrease Levoxyl from 100 -75 mcg daily. TSH was low at 0.2. T4 was elevated at 1.6. Renal: Acute kidney injury Monitor urine output Accurate I's and O's Noted on gentamicin. Avoid other nephrotoxic drugs. Heme: Leukocytosis Thrombocytopenia History of basal carcinoma/melanoma? of the nares Monitor CBC. Follow trends. Infectious possible etiology ID: UTI Puncture - opening pressure 18 cm H2O. And glucose might be inappropriately low. Protein normal. Currently on aztreonam 1 g every 8, gentamicin 70 mg every 8 hours and Flagyl 500 mg IV every 8 hours. Infectious disease consulted. Pertinent cultures 03/13 - blood cultures 1 - pending 03/12 - UA - pending 03/12 - blood culture 1 - pending 03/12 - CSF - Gram stain negative. 03/11 - blood cultures 2 - no growth FEN: Hyponatremia Currently normal saline at 125 cc an hour. Monitor. MSK: PT/OT evaluate and treat Access - Right IJ CVL day 1 placed 03/13/17 Prophylaxis - GI -Protonix - DVT - SCD/currently holding recorded prophylaxis post lumbar puncture. Okay to resume [address] Monsalve per reviewing records recommended Coumadin without full dose anticoagulation bridge. We'll discuss further today. Critical Care: The total critical care time was 45 minutes. Time to perform other separately billable procedures was not included in the critical care time. Mandeep Velasco MD Mar 13, 2017 08:06
[2017-03-13] MEDS ORDERED: MISCELLANEOUS NURSING INFORMATION XX SCH (08:30)
[2017-03-13] MEDS ORDERED: RESP: ALBUTEROL 2.5 MG/3 ML NEB (PRN) INH (08:30)
[2017-03-13] MEDS ORDERED: SENNOSIDES 8.6 MG TAB PO PRN (08:30)
[2017-03-13] MEDS ORDERED: CHLORHEXIDINE GLUCONATE 2 % 1 PACK (2 CLOTHS) TOP PRN (08:30)
[2017-03-13] MEDS ORDERED: PANTOPRAZOLE SOD 20 MG DELAYED RELEASE TAB PO SCH (09:00)
[2017-03-13] MEDS ORDERED: METHYLFOLATE ALGAE PO SCH (09:00)
[2017-03-13] MEDS: PANTOPRAZOLE SODIUM 40 MG VIAL IV SCH (09:00)
[2017-03-13] MEDS ORDERED: Vancomycin Consult Pharmacy 1 EA OTHER SCH (09:30)
--- NOTE | 2017-03-13 09:37 | RADRPT ---
EXAM DATE/TIME: 03/13/2017 07:59 [facility] COMPARISON: CHEST SINGLE AP, March 11, 2017, 23:27. INDICATIONS : Evaluate central line placement MEDICAL HISTORY : Hypertension. Diabetes mellitus type II. Congestive heart failure. Liver disease. Hiatal hernia. SURGICAL HISTORY : Appendectomy. Cholecystectomy. Atrial valve repair. Hiatal hernia repair. Conary stent. ENCOUNTER: Subsequent ACUITY: 2 weeks PAIN SCORE: 0/10 LOCATION: chest FINDINGS: Portable AP view of the chest demonstrates a normal-sized cardiac silhouette in this patient post med saul sternotomy and valve replacement. Right IJ central line has been placed and the distal tip is theron r the cavoatrial junction. No pneumothorax is identified. Lungs are underinflated due to expiratory t echnique. There is mild hazy opacity at the left lung base. CONCLUSION: Right IJ line distal tip at the cavoatrial junction. No pneumothorax is visualized. Reynaldo Higgins MD on March 13, 2017 at 9:34 Board Certified Radiologist. This report was verified electronically.
[2017-03-13 09:52] LABS: INDIRECT BILIRUBIN 0.7 MG/DL (0.0-0.8); TOTAL BILIRUBIN ADULT 2.4 MG/DL (0.2-1.0)
[2017-03-13 09:55] LABS: BICARBONATE 20.9 MEQ/L (21.0-32.0); MAGNESIUM 2.8 MG/DL (1.5-2.5); POTASSIUM 4.4 MEQ/L (3.5-5.1)
[2017-03-13 10:20] LABS: DIGOXIN 1.5 NG/ML (0.8-2.0)
[2017-03-13] MEDS: SODIUM CHLORIDE 0.9% FLUSH 10 ML FLUSH IV FLUSH SCH ×2 (10:21→20:07)
[2017-03-13] MEDS: DOCUSATE SODIUM 100 MG CAP PO SCH ×2 (10:31→20:07)
--- NOTE | 2017-03-13 11:12 | MB ---
cc: ABDIEL BEASLEY M.D. DATE OF CONSULTATION: 03/13/2017 HISTORY OF PRESENT ILLNESS She is a 76-year-old woman. Involved in her care yesterday when the [facility] emergency room Dr. Ray called a stroke alert around 07:00 p.m. The patient had been admitted to the hospital apparently with tiredness, some fatigue and lethargy and generalized weakness. She had atrial fibrillation. She was given Lovenox, I believe 60 mg and later in the day yesterday there was additional neurologic change. Apparently, there was some communication to texting with family around 04:00 p.m. when the patient seemed not to be making sense as usual. She was then found to be lethargic, poorly responsive. A stroke alert was called. CT brain was negative. The CT angio head and neck was requested to consider the possibility of interventional embolectomy but the study showed no significant disease to be treated. At that time the patient was also noted to have a fever and perhaps diagnosis was sepsis. She was transferred to the [facility]. She has a lumbar puncture which showed some mild abnormalities but the puncture was bloody. There is some question on pupillary asymmetry yesterday but this has resolved. There was some shivering. The patient has a history of diabetes mellitus, status post aortic valve stenosis with a reported Bovie in the valve. NEUROLOGIC EXAMINATION The neurologic exam this morning shows normal alertness and essentially normal mentation at the bedside exam. Ocular movements and visual vargas are full. Pupils about same size reactive. She has good strength in all four limbs. 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 Reflexes were 1+, plantar response is flexor. ASSESSMENT Transient neurologic decline yesterday, possibly a TIA, possibly encephalopathy from sepsis. Stroke alert was called but she was not a candidate for TPA initially because of the Lovenox dose given earlier in the day and the CT angio did not show any thrombus intracranially for intervention. The patient was transferred to the intensive care unit at the [facility] where she is right now and lumbar puncture shows what appears to be a traumatic tap. She is markedly improved overall and she does have cardiac arrhythmia awaiting for cardiology evaluation. She had atrial fibrillation and in all likelihood she needs long-term anticoagulation. Depending upon clinical course we will consider EEG and MRI of brain as well, but at this point we will await on the progression of her cardiac and medical workup for sepsis. Thank you for asking us to assist in her care. I will follow her with you. MD JAMES Dejesus/TLL /8:15 AM /10:49 AM
[2017-03-13] MEDS: SODIUM CHLORIDE 0.9% FLUSH 10 ML FLUSH IVF SCH (11:14)
[2017-03-13] MEDS: VANCOMYCIN INJ 1,500 MG in SODIUM CHLORID 0.9% 500 ML INJ 500 ML IV SCH (12:24)
--- NOTE | 2017-03-13 13:31 | PD.CARD.PN ---
Subjective Subjective Remarks Better much, Sepsis secondary to strep? Objective Medications Administered Medications Medications (Trade) Dose Ordered Sig/Tunde Route PRN Reason Start Time Stop Time Status Last Admin Dose Admin Atorvastatin Calcium (Lipitor) 10 mg HS PO 03/12/17 21:00 03/12/17 22:01 Insulin Detemir 7 units 7 units HS SQ 03/12/17 21:00 03/12/17 22:02 Sodium Chloride 1,000 ml @ 50 mls/hr Q20H IV 03/13/17 00:00 03/13/17 10:22 Dopamine HCl/ Dextrose (DOPamine INJ PREMIX) 500 ml @ 0 mls/hr TITRATE IV 03/13/17 00:30 03/13/17 00:37 Sodium Chloride (NS Flush) DAILY IVF 03/13/17 09:00 03/13/17 11:14 Sodium Chloride (NS Flush) 2 ml BID IV FLUSH 03/13/17 09:00 03/13/17 10:21 Docusate Sodium 100 mg 100 mg BID PO 03/13/17 09:00 03/13/17 10:31 Vancomycin HCl/ Sodium Chloride (Vancomycin Inj/ NS 500 ml Inj) 515 ml @ 250 mls/hr Q24H IV 03/13/17 12:00 03/13/17 12:24 Vital Signs / I&O Vital Signs Date Time Temp Pulse Resp B/P Pulse Ox O2 Delivery O2 Flow Rate FiO2 03/13/17 12:00 97.2 46 23 95/50 99 03/13/17 12:00 46 03/13/17 10:00 43 03/13/17 08:00 97.5 52 25 106/68 97 03/13/17 08:00 52 03/13/17 06:00 45 03/13/17 04:00 45 03/13/17 04:00 98.6 42 23 74/42 100 03/13/17 02:00 40 03/13/17 00:00 40 03/13/17 00:00 97.8 40 24 92/48 100 03/12/17 22:00 60 03/12/17 21:03 103.0 55 16 86/46 99 03/12/17 20:20 102.6 96 03/12/17 20:01 66 34 93/51 03/12/17 19:23 78 24 122/54 03/12/17 19:04 96 3.00 03/12/17 19:04 97 Nasal Cannula 3.00 03/12/17 18:36 80 33 155/71 99 03/12/17 16:22 98 21 03/12/17 16:00 98.2 116 26 98/62 100 03/12/17 16:00 116 I/O 03/12/17 03/12/17 03/12/17 03/13/17 03/13/17 03/13/17 07:00 15:00 23:00 07:00 15:00 23:00 Intake Total 470 ml 480 ml 801 ml Output Total 700 ml 650 ml Balance -230 ml 480 ml 151 ml Intake Oral 120 ml 480 ml IV Total 350 ml 801 ml Output Urine Total 700 ml 650 ml # Voids 2 1 Physical Exam GENERAL: Well-nourished, well-developed patient in no apparent distress. SKIN: Warm and dry. NECK: JVD normal - less than or equal to 5 cm H20. CARDIOVASCULAR: Regular rate and rhythm without murmurs, gallops or rubs. RESPIRATORY: Normal breath sounds - equal bilaterally. No accessory muscle use. No wheezes, rales or rubs. PERIPHERY: No cyanosis or edema. Laboratory Laboratory Tests Test 03/12/17 03/12/17 03/12/17 03/13/17 20:10 21:00 23:40 02:00 White Blood Count 15.4 TH/MM3 22.1 TH/MM3 Red Blood Count 4.06 MIL/MM3 4.23 MIL/MM3 Hemoglobin 11.8 GM/DL 11.9 GM/DL Hematocrit 34.5 % 36.4 % Mean Corpuscular Volume 84.9 FL 86.1 FL Mean Corpuscular Hemoglobin 29.1 PG 28.1 PG Mean Corpuscular Hemoglobin 34.3 % 32.6 % Concent Red Cell Distribution Width 14.3 % 15.6 % Platelet Count 154 TH/MM3 126 TH/MM3 Mean Platelet Volume 7.9 FL 8.2 FL Neutrophils (%) (Auto) 94.6 % 96.1 % Lymphocytes (%) (Auto) 3.3 % 2.3 % Monocytes (%) (Auto) 1.7 % 1.5 % Eosinophils (%) (Auto) 0.1 % 0.0 % Basophils (%) (Auto) 0.3 % 0.1 % Neutrophils # (Auto) 14.6 TH/MM3 21.2 TH/MM3 Lymphocytes # (Auto) 0.5 TH/MM3 0.5 TH/MM3 Monocytes # (Auto) 0.3 TH/MM3 0.3 TH/MM3 Eosinophils # (Auto) 0.0 TH/MM3 0.0 TH/MM3 Basophils # (Auto) 0.0 TH/MM3 0.0 TH/MM3 CBC Comment DIFF FINAL DIFF FINAL Differential Comment Sodium Level 133 MEQ/L 131 MEQ/L Potassium Level 4.7 MEQ/L 4.8 MEQ/L Chloride Level 102 MEQ/L 102 MEQ/L Carbon Dioxide Level 22.0 MEQ/L 17.6 MEQ/L Anion Gap 9 MEQ/L 11 MEQ/L Blood Urea Nitrogen 18 MG/DL 23 MG/DL Creatinine 1.00 MG/DL 1.11 MG/DL Estimat Glomerular Filtration 54 ML/MIN 48 ML/MIN Rate Random Glucose 226 MG/DL 252 MG/DL Lactic Acid Level 2.3 mmol/L Calcium Level 8.0 MG/DL 8.1 MG/DL Total Bilirubin 2.2 MG/DL Aspartate Amino Transf 35 U/L (AST/SGOT) Alanine Aminotransferase 21 U/L (ALT/SGPT) Alkaline Phosphatase 176 U/L Total Protein 6.2 GM/DL Albumin 2.2 GM/DL Blood Type A POSITIVE Antibody Screen NEGATIVE Nasal Screen MRSA (PCR) MRSA NOT DETECTED CSF Volume (Tube 1) 1.8 ML CSF Supernatant Color (tube 1) CLEAR CSF Gross Blood (Tube 1) 2+ CSF WBC (Tube 1) 92 /MM3 CSF RBC (Tube 1) 1266 /MM3 CSF Volume (Tube 2) 3.8 ML CSF Supernatant Color (tube 2) CLEAR CSF Gross Blood (Tube 2) 1+ CSF Volume (Tube 3) 2.0 ML CSF Supernatant Color (tube 3) CLEAR CSF Gross Blood (Tube 3) TR CSF WBC (Tube 3) 31 /MM3 CSF RBC (Tube 3) 113 /MM3 CSF Volume (Tube 4) 2.3 ML CSF Supernatant Color (tube 4) CLEAR CSF Gross Blood (Tube 4) TR CSF Neutrophils 75 % CSF Lymphocytes 4 % CSF Monocytes 17 % CSF Histiocytes 4 % CSF Glucose 101 MG/DL CSF Lactic Acid 2.7 MMOL/L CSF Total Protein 40.4 MG/DL Test 03/13/17 09:14 Sodium Level 133 MEQ/L Potassium Level 4.4 MEQ/L Chloride Level 102 MEQ/L Carbon Dioxide Level 20.9 MEQ/L Anion Gap 10 MEQ/L Blood Urea Nitrogen 24 MG/DL Creatinine 1.07 MG/DL Estimat Glomerular Filtration 50 ML/MIN Rate Random Glucose 318 MG/DL Lactic Acid Level 1.4 mmol/L Calcium Level 8.1 MG/DL Phosphorus Level 3.2 MG/DL Magnesium Level 2.8 MG/DL Total Bilirubin 2.4 MG/DL Direct Bilirubin 1.7 MG/DL Indirect Bilirubin 0.7 MG/DL Ammonia 24 MCMOL/L Total Creatine Kinase 151 U/L Troponin I 0.18 NG/ML C-Reactive Protein 8.70 MG/DL Digoxin Level 1.5 NG/ML Imaging Last 24 hours Impressions Chest X-Ray 03/13/17 0759 Signed Impressions: Service Date/Time: February 07:59 - CONCLUSION: Right IJ line distal tip at the cavoatrial junction. No pneumothorax is visualized. Reynaldo Higgins MD Assessment and Plan Assessment and Plan Overall getting better await echo, concerning given prosthetic valve. Josep Monsalve MD Mar 13, 2017 13:31
--- NOTE | 2017-03-13 13:53 | EKG ---
Date Performed: 03/12/2017 Time Performed: 19:20:46 PTAGE: 76 years EKG: Atrial fibrillation with frequent multifocal PVCs. Extensive ST-T changes may be due to rupa cardial ischemia Abnormal ECG Compared to prior tracing no significant change PREVIOUS TRACING : 03/12/2017 12.25 DOCTOR: Dimitrios Daniel Interpretating Date/Time 03/13/2017 13:53:21
--- NOTE | 2017-03-13 13:54 | EKG ---
Date Performed: 03/12/2017 Time Performed: 12:25:06 PTAGE: 76 years EKG: Atrial fibrillation Inferior and ant/septal T wave changes are nonspecific Abnormal ECG Com pared to prior tracing no significant change PREVIOUS TRACING : 03/12/2017 05.41 DOCTOR: Dimitrios Daniel Interpretating Date/Time 03/13/2017 13:53:34
[2017-03-13] MEDS: ACETAMINOPHEN 325 MG TAB PO PRN ×2 (15:18→22:39)
--- NOTE | 2017-03-13 16:21 | MB ---
cc: VADIM HURST MD DATE OF CONSULTATION: 03/13/2017 REFERRING PHYSICIAN: Dr. Peralta. REASON FOR CONSULTATION: Fever, Altered mental status, many allergies. CSF with elevated white blood cells. HISTORY OF PRESENT ILLNESS This is a 76-year-old white female who presented to emergency department on 03/11 with generalized weakness. The patient previously presented to [facility] one week ago after three days of generalized weakness and diarrhea. She was evaluated and the white blood cell count was normal and she was afebrile and she was discharged home. She returned with complaints of generalized weakness and again on 03/11. The patient tells me that she was having fever and chills off and on since she started feeling ill, approximately 10 days ago. She was also very weak and was sleeping most of the day. She states that she had a slight headache. She did not have a thermometer and therefore she did not measure her temperature. She was evaluated in the emergency department on 03/11 and she was noted to have elevated heart rate. She normally has bradycardia. The blood pressure was decreased at 83/41 and white blood cell count was elevated at 13.9 and a low platelet count of 148. She was admitted and blood cultures were taken and she was started on antibiotics. Urinalysis was also obtained and it showed 0-2 white cells and moderate bacteria. A culture was taken as well. The blood culture came back with four bottles showing gram-positive cocci and one bottles showing Streptococcus disease. The patient had a aortic valve replacement four years ago with a bovine valve. LP was done and CSF culture is pending. The CSF showed many white cells but no organisms. The patient tells me that she does not recall anything that happened yesterday evening. She is noted to have vomited after she ate. She had altered mental status. She says that her daughter told her that she was speaking things that were off. She was saying a different name for self to her daughter and she tells me that she went for a CT scan last night and does not recall even leaving the floor to go to the Radiology Department. The patients heart rate is currently 45. She had a temperature spike to 103 degrees last night, The white blood cell count has increased and today it is 22.1. The chest x-ray Shows no acute disease. CT scan of the head was negative. Noncontrast CT of the head showed normal intracranial arteries. The CTA of the neck showed slight atherosclerosis of both carotid bifurcations without narrowing. The patient denies prior infections of the blood since her heart valve was replaced four years ago. The heart valve was replaced because of aortic stenosis. The patient did not receive any antibiotics prior to coming to the emergency room on 03/11. The patient denies recent dental procedures. She had last cleaning of her teeth six months ago and received amoxicillin prophylaxis. PAST MEDICAL HISTORY 1. Biliary cirrhosis 2. Diabetes mellitus 3. Appendectomy 4. Hysterectomy. 5. Aortic valve replacement in 2012 with Bovine valve. 6. Gastroesophageal reflux disease 7. Bilateral cataract surgery, one was done February 2017 and the first was January 2017. ALLERGIES AMPICILLIN LEAD TO SHORTNESS OF BREATH. PATIENT ABLE TO TOLERATE AMOXICILLIN. LEVAQUIN SULFA MACROBID IODINE CONTRAST MEDIA. HEART DISEASE. MEDICATIONS: 1. Vancomycin 2. aztreonam 3. gentamicin 4. metronidazole 5. Synthroid 6. Theragran 7. Protonix 8. Colace 9. [place] 5 mg p.r.n. 10. Senokot p.r.n. 11. Lipitor 12. Levemir SOCIAL HISTORY No tobacco use. Social alcohol use. No illicit drugs. FAMILY HISTORY Noncontributory. REVIEW OF SYSTEMS GENERAL: Significant for fever and chills. HEAD, EARS, EYES, NOSE, AND THROAT: No visual blurring. No difficulty with vision. No nasal drainage. No difficulty swallowing or soreness of the throat. NECK: No neck swelling or neck pain. CARDIOVASCULAR SYSTEM: Denies chest pain or palpitations. RESPIRATORY: Denies cough or shortness of breath. GASTROINTESTINAL: Significant for diarrhea. No abdominal pain or nausea. GENITOURINARY: No urgency or frequency or dysuria, 10 degrees. No polyuria, polydipsia. MUSCULOSKELETAL: No muscle aches or joint pains. HEMATOLOGIC: No easy bruising or bleeding. INTEGUMENTARY: No skin rash or itching. NEUROLOGIC: Significant for occasional headache. PSYCHIATRIC: No problems with mood changes or depression. PHYSICAL EXAMINATION IN GENERAL: This is a slender female who is well-nourished. She is in no acute distress. She is awake and alert and oriented. VITAL SIGNS: Include temperature of 98.6, heart rate 42. HEAD, EYES, EARS, NOSE, AND THROAT: Head is atraumatic. Extraocular movements grossly intact, pupils reactive to light. No icterus. No conjunctival erythema. Oropharynx no thrush. No lesions. NECK: Supple without adenopathy or swelling. LUNGS: Clear breath sounds. HEART: 3/6 blowing systolic ejection murmur at the left sternal border and also at the upper right sternal border. ABDOMEN: Bowel sounds present, soft, no tenderness appreciated. No palpable mass. RECTUM: Rectal was not performed. EXTREMITIES: No clubbing or cyanosis. The patient has multiple finger deformities with undeveloped fingers, one through four on the left hand from . No deformities of the right hand. No splinter hemorrhages visible at the nail beds. Ecchymosis of the hands. No clubbing, cyanosis or edema. NEUROLOGIC: Nonfocal. SKIN: No diffuse rash. PSYCHIATRIC: The patient is calm and cooperative. LABORATORY DATA WBC 22.1, platelets 126, hemoglobin 11.9, 96% neutrophils, creatinine 1.07, BUN 24, sodium 133, total bilirubin 2.4, estimated GFR 50. The cerebrospinal fluid revealed 92 white cells, 1266 red cells, 81% neutrophils, 14% monocytes. Glucose 101, total protein 40.4. IMPRESSION 1. Bacteremia due to gram-positive cocci with 1/4 bottles identified as the strep species. 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 2. Sepsis. 3. Altered mental status, which appears improved and may be related to sepsis. 4. Leukocytosis. 5. Acute renal disease. RECOMMENDATIONS 1. Continue vancomycin. 2. Discontinue aztreonam. 3. Discontinue gentamicin. 4. Discontinue metronidazole. 5. Monitor blood cultures. 6. 2-D echocardiogram. 7. Agree with cardiology consultation in patient with prosthetic aortic valve possible EndoCatch and probable endocarditis given the length of her symptoms with fever and chills for 10 days. Per her report, pelvic pain and now with bacteremia. 8. Monitor renal function. 9. Follow up vancomycin level. Thank you for this consultation. The patient's progress will be monitored and further recommendations will be given on followup. The patient does have reported allergy to ampicillin. However, she has tolerated amoxicillin and allergy was probably not a true allergy in that she had shortness of breath which may have been transient issue. Thank you for this consultation. Further recommendations will be given upon followup. I would avoid, no glycoside because of her renal function. MD Deepa Seay /12:36 PM /3:32 PM [facility]ITALHarriet
[2017-03-13 16:38] LABS: HEMATOCRIT 33.9 % (35.0-46.0); MEAN CELL VOLUME 84.5 FL (80.0-100.0); MEAN CORPUSCULAR HEMOGLOBIN 28.3 PG (27.0-34.0); MEAN CORPUSCULAR HGB CONC 33.5 % (32.0-36.0); PLATELET COUNT 122 TH/MM3 (150-450); RED BLOOD COUNT 4.01 MIL/MM3 (4.00-5.30); RED CELL DISTRIBUTION WIDTH 15.1 % (11.6-17.2); REVIEW FLAG FINAL; WHITE BLOOD COUNT 11.7 TH/MM3 (4.0-11.0)
[2017-03-13] MEDS ORDERED: DEXTROSE 50% IN WATER 50 ML VIAL(D50) IV PUSH PRN (18:00)
[2017-03-13] MEDS ORDERED: GLUCAGON 1 MG/ML VIAL OTHER PRN (18:00)
--- NOTE | 2017-03-13 18:11 | EKG ---
Date Performed: 03/11/2017 Time Performed: 23:12:18 PTAGE: 76 years EKG: Atrial flutter with rapid ventricular response Inferior ST-T changes are nonspecific Abnorm al ECG Compared to prior study of 03/06/2017, atrial flutter has replaced Sinus rhythm . PREVIOUS TRACING : 03/06/2017 15.00 DOCTOR: Dimitrios Daniel Interpretating Date/Time 03/13/2017 18:10:08
--- NOTE | 2017-03-13 18:12 | EKG ---
Date Performed: 03/12/2017 Time Performed: 05:41:44 PTAGE: 76 years EKG: Atrial fibrillation Septal ST-T changes are nonspecific Abnormal ECG Compared to prior stud y, atrial fibrillation is now present with a controlled rate. PREVIOUS TRACING : 03/06/2017 15.00 DOCTOR: Dimitrios Daniel Interpretating Date/Time 03/13/2017 18:10:43
--- NOTE | 2017-03-13 18:12 | EKG ---
Date Performed: 03/13/2017 Time Performed: 09:23:10 PTAGE: 76 years EKG: SINUS BRADYCARDIA MINIMAL ST DEPRESSION BORDERLINE ECG Compared to the prior study, Sinus r hythm has replaced atrial fibrillation. PREVIOUS TRACING : 03/12/2017 19.20 DOCTOR: Dimitrios Daniel Interpretating Date/Time 03/13/2017 18:11:12
[2017-03-13] MEDS: INSULIN DETEMIR 100 UNITS/ML VIAL SQ SCH (20:06)
[2017-03-13] MEDS: ATORVASTATIN 10 MG TAB PO SCH (20:06)
[2017-03-13] MEDS: INSULIN NovoLIN REGULAR SUPPLEMENTAL SCALE SQ SCH (20:29)
[2017-03-13] MEDS ORDERED: URSODIOL 500 MG PO SCH (21:00)
[2017-03-14] VITALS (14 sets, daily range): BP systolic 104–124; BP diastolic 50–62; PULSE 40–61; RESP 20–26; TEMP 98.1–98.4; O2SAT 99–100
[2017-03-14] MEDS: CHLORHEXIDINE GLUCONATE 2 % 1 PACK (2 CLOTHS) TOP SCH (04:00)
[2017-03-14] MEDS: LEVOTHYROXINE SODIUM 75 MCG TAB PO SCH (05:02)
[2017-03-14] MEDS: SODIUM CHLOR 0.9% 1000 ML INJ 1,000 ML IV SCH (05:06)
[2017-03-14 06:00] LABS: AUTOMATED NEUTROPHIL # 20.2 TH/MM3 (1.8-7.7); BASOPHIL % 0.1 % (0.0-2.0); HEMATOCRIT 33.7 % (35.0-46.0); HEMO FLAGS DIFF FINAL; LYMPH % 2.7 % (9.0-44.0); LYMPHOCYTE # 0.6 TH/MM3 (1.0-4.8); MEAN CELL VOLUME 84.5 FL (80.0-100.0); MEAN CORPUSCULAR HEMOGLOBIN 27.4 PG (27.0-34.0); MEAN CORPUSCULAR HGB CONC 32.4 % (32.0-36.0); MONO % 3.2 % (0.0-8.0); PLATELET COUNT 156 TH/MM3 (150-450); RED BLOOD COUNT 3.99 MIL/MM3 (4.00-5.30); RED CELL DISTRIBUTION WIDTH 15.2 % (11.6-17.2); WHITE BLOOD COUNT 21.5 TH/MM3 (4.0-11.0)
[2017-03-14 06:03] LABS: INTERNATIONAL NORMALIZED RATIO 1.2 RATIO; PROTHROMBIN TIME - PATIENT 13.5 SEC (9.8-11.6)
[2017-03-14 06:23] LABS: ALKALINE PHOSPHATASE 189 U/L (45-117); ALT (GPT) 22 U/L (10-53); ANION GAP 8 MEQ/L (5-15); AST (GOT) 24 U/L (15-37); BICARBONATE 23.1 MEQ/L (21.0-32.0); BLOOD UREA NITROGEN 31 MG/DL (7-18); CHLORIDE 106 MEQ/L (98-107); GLOMERULAR FILTRATION RATE 55 ML/MIN (>89); MAGNESIUM 2.7 MG/DL (1.5-2.5); POTASSIUM 4.1 MEQ/L (3.5-5.1); SODIUM (NA) 137 MEQ/L (136-145); TOTAL BILIRUBIN ADULT 1.4 MG/DL (0.2-1.0)
[2017-03-14] MEDS: INSULIN NovoLIN REGULAR SUPPLEMENTAL SCALE SQ SCH ×4 (06:56→21:40)
[2017-03-14] MEDS: DOCUSATE SODIUM 100 MG CAP PO SCH ×2 (09:00→21:00)
[2017-03-14] MEDS: PANTOPRAZOLE SODIUM 40 MG VIAL IV SCH (09:12)
[2017-03-14] MEDS: INSULIN DETEMIR 100 UNITS/ML VIAL SQ SCH ×2 (09:13→21:39)
[2017-03-14] MEDS: MULTIVITAMIN TAB PO SCH ×2 (09:13→09:20)
[2017-03-14] MEDS: SODIUM CHLORIDE 0.9% FLUSH 10 ML FLUSH IV FLUSH PRN (09:13)
[2017-03-14] MEDS: DOPamine 800 MG/D5W PREMIX 500 ML IV SCH (09:13)
[2017-03-14] MEDS: SODIUM CHLORIDE 0.9% FLUSH 10 ML FLUSH IVF SCH (09:14)
[2017-03-14] MEDS: SODIUM CHLORIDE 0.9% FLUSH 10 ML FLUSH IV FLUSH SCH ×2 (09:14→21:00)
[2017-03-14] MEDS: VANCOMYCIN INJ 1,500 MG in SODIUM CHLORID 0.9% 500 ML INJ 500 ML IV SCH (12:04)
[2017-03-14] MEDS: ACETAMINOPHEN 325 MG TAB PO PRN ×2 (12:43→21:41)
--- NOTE | 2017-03-14 13:04 | HHI.IDPN ---
Note Infectious Disease Note Patient had chills this am. Notes slight WATERS. Awake and alert. No nausea. No vomiting. Afebrile. Blood cultures has strep species. Presented to emergency department on 03/11 with generalized weakness. The patient previously presented to [facility] one week ago after three days of generalized weakness and diarrhea. She was evaluated and the white blood cell count was normal and she was afebrile. PAST MEDICAL HISTORY 1. Biliary cirrhosis 2. Diabetes mellitus 3. Appendectomy 4. Hysterectomy. 5. Aortic valve replacement in 2012 with Bovine valve. 6. Gastroesophageal reflux disease 7. Bilateral cataract surgery, one was done February 2017 and the first was January 2017. ALLERGIES AMPICILLIN LEAD TO SHORTNESS OF BREATH. PATIENT ABLE TO TOLERATE AMOXICILLIN. LEVAQUIN SULFA MACROBID IODINE CONTRAST MEDIA. HEART DISEASE. ANTIBIOTICS: Vancomycin SOCIAL HISTORY No tobacco use. Social alcohol use. No illicit drugs. OBJECTIVE: Vital Signs Date Time Temp Pulse Resp B/P Pulse Ox O2 Delivery O2 Flow Rate FiO2 03/14/17 10:00 49 03/14/17 08:00 98.1 45 24 123/58 100 03/14/17 08:00 45 03/14/17 06:00 47 03/14/17 04:00 40 03/14/17 04:00 98.4 40 22 111/56 100 03/14/17 02:00 42 03/14/17 00:00 41 03/14/17 00:00 98.3 41 20 124/62 100 03/13/17 23:39 22 03/13/17 23:00 41 03/13/17 22:00 62 03/13/17 20:00 49 03/13/17 20:00 97.9 49 22 147/93 100 03/13/17 19:10 99 Nasal Cannula 2.00 03/13/17 18:07 69 03/13/17 16:00 51 03/13/17 16:00 97.5 51 25 131/60 100 03/13/17 14:00 40 03/13/17 03/13/17 03/14/17 15:00 23:00 07:00 Intake Total 1136 ml 796 ml 616 ml Output Total 575 ml Balance 561 ml 796 ml 616 ml Intake Oral 150 ml 240 ml 120 ml IV Total 986 ml 556 ml 496 ml Output Urine Total 575 ml # Voids 3 3 # Bowel Movements 0 0 Laboratory Tests Test 03/12/17 03/13/17 03/13/17 03/14/17 20:10 02:00 16:26 05:00 White Blood Count 15.4 TH/MM3 22.1 TH/MM3 11.7 TH/MM3 21.5 TH/MM3 Red Blood Count 4.06 MIL/MM3 4.23 MIL/MM3 4.01 MIL/MM3 3.99 MIL/MM3 Hemoglobin 11.8 GM/DL 11.9 GM/DL 11.4 GM/DL 10.9 GM/DL Hematocrit 34.5 % 36.4 % 33.9 % 33.7 % Mean Corpuscular Volume 84.9 FL 86.1 FL 84.5 FL 84.5 FL Mean Corpuscular Hemoglobin 29.1 PG 28.1 PG 28.3 PG 27.4 PG Mean Corpuscular Hemoglobin 34.3 % 32.6 % 33.5 % 32.4 % Concent Red Cell Distribution Width 14.3 % 15.6 % 15.1 % 15.2 % Platelet Count 154 TH/MM3 126 TH/MM3 122 TH/MM3 156 TH/MM3 Mean Platelet Volume 7.9 FL 8.2 FL 8.1 FL 7.9 FL Neutrophils (%) (Auto) 94.6 % 96.1 % 94.0 % Lymphocytes (%) (Auto) 3.3 % 2.3 % 2.7 % Monocytes (%) (Auto) 1.7 % 1.5 % 3.2 % Eosinophils (%) (Auto) 0.1 % 0.0 % 0.0 % Basophils (%) (Auto) 0.3 % 0.1 % 0.1 % Neutrophils # (Auto) 14.6 TH/MM3 21.2 TH/MM3 20.2 TH/MM3 Lymphocytes # (Auto) 0.5 TH/MM3 0.5 TH/MM3 0.6 TH/MM3 Monocytes # (Auto) 0.3 TH/MM3 0.3 TH/MM3 0.7 TH/MM3 Eosinophils # (Auto) 0.0 TH/MM3 0.0 TH/MM3 0.0 TH/MM3 Basophils # (Auto) 0.0 TH/MM3 0.0 TH/MM3 0.0 TH/MM3 CBC Comment DIFF FINAL DIFF FINAL DIFF FINAL Differential Comment Laboratory Tests Test 03/12/17 03/13/17 03/13/1717 20:10 02:00 09:14 16:26 Sodium Level 133 MEQ/L 131 MEQ/L 133 MEQ/L Potassium Level 4.7 MEQ/L 4.8 MEQ/L 4.4 MEQ/L Chloride Level 102 MEQ/L 102 MEQ/L 102 MEQ/L Carbon Dioxide Level 22.0 MEQ/L 17.6 MEQ/L 20.9 MEQ/L Anion Gap 9 MEQ/L 11 MEQ/L 10 MEQ/L Blood Urea Nitrogen 18 MG/DL 23 MG/DL 24 MG/DL Creatinine 1.00 MG/DL 1.11 MG/DL 1.07 MG/DL Estimat Glomerular Filtration 54 ML/MIN 48 ML/MIN 50 ML/MIN Rate Random Glucose 226 MG/DL 252 MG/DL 318 MG/DL Lactic Acid Level 2.3 mmol/L 1.4 mmol/L 1.4 mmol/L Calcium Level 8.0 MG/DL 8.1 MG/DL 8.1 MG/DL Total Bilirubin 2.2 MG/DL 2.4 MG/DL Aspartate Amino Transf 35 U/L (AST/SGOT) Alanine Aminotransferase 21 U/L (ALT/SGPT) Alkaline Phosphatase 176 U/L Total Protein 6.2 GM/DL Albumin 2.2 GM/DL Phosphorus Level 3.2 MG/DL Magnesium Level 2.8 MG/DL Direct Bilirubin 1.7 MG/DL Indirect Bilirubin 0.7 MG/DL Ammonia 24 MCMOL/L Total Creatine Kinase 151 U/L Troponin I 0.18 NG/ML C-Reactive Protein 8.70 MG/DL Procalcitonin 15.55 ng/mL Test 03/14/17 05:00 Sodium Level 137 MEQ/L Potassium Level 4.1 MEQ/L Chloride Level 106 MEQ/L Carbon Dioxide Level 23.1 MEQ/L Anion Gap 8 MEQ/L Blood Urea Nitrogen 31 MG/DL Creatinine 0.99 MG/DL Estimat Glomerular Filtration 55 ML/MIN Rate Random Glucose 178 MG/DL Calcium Level 7.7 MG/DL Phosphorus Level 2.3 MG/DL Magnesium Level 2.7 MG/DL Total Bilirubin 1.4 MG/DL Aspartate Amino Transf 24 U/L (AST/SGOT) Alanine Aminotransferase 22 U/L (ALT/SGPT) Alkaline Phosphatase 189 U/L Total Protein 6.1 GM/DL Albumin 2.2 GM/DL Microbiology Date/Time Procedure Status Source Growth 4/25/17 23:35 Aerobic Blood Culture - Preliminary Resulted Blood Peripheral Streptococcus Species 03/11/17 23:35 Anaerobic Blood Culture - Preliminary Resulted Streptococcus Species 03/11/17 23:41 Aerobic Blood Culture - Preliminary Resulted Blood Peripheral Streptococcus Species 03/11/17 23:41 Anaerobic Blood Culture - Preliminary Resulted Streptococcus Species 03/12/17 01:08 Urine Culture - Final Complete Urine Clean Catch 50-100,000 CFU/ML MIXED GRAM POSITIVE... 03/12/17 20:10 Aerobic Blood Culture - Preliminary Resulted Blood Arterial Line Gram Positive Cocci 03/12/17 20:10 Anaerobic Blood Culture - Preliminary Resulted Gram Positive Cocci 03/12/17 23:40 Gram Stain - Final Resulted Cerebral Spinal Fluid Lumbar Puncture 03/12/17 23:40 CSF Culture - Preliminary Resulted Cerebral Spinal Fluid Lumbar Puncture NO GROWTH IN 24 HOURS. 03/13/17 02:00 Aerobic Blood Culture - Preliminary Resulted Blood Arterial Line Streptococcus Species 03/13/17 02:00 Anaerobic Blood Culture - Preliminary Resulted Gram Positive Cocci PHYSICAL EXAMINATION GENERAL: This is a slender female who is well-nourished. She is in no acute distress. She is awake and alert and oriented. HEAD, EYES, EARS, NOSE, AND THROAT: Head is atraumatic. Extraocular movements grossly intact, pupils reactive to light. No icterus. No conjunctival erythema. Oropharynx no thrush. No lesions. NECK: Supple without adenopathy or swelling. LUNGS: Clear breath sounds. HEART: 3/6 blowing systolic ejection murmur at the left sternal border and also at the upper right sternal border. ABDOMEN: Bowel sounds present, soft, no tenderness appreciated. EXTREMITIES: No clubbing or cyanosis. The patient has multiple finger deformities with undeveloped fingers, one through four on the left hand from . Ecchymosis of the hands. No clubbing, cyanosis or edema. No peripheral embolic lesions. NEUROLOGIC: Nonfocal. SKIN: No diffuse rash. PSYCHIATRIC: The patient is calm and cooperative. IMPRESSION 1. Bacteremia due to gram-positive cocci with 1/4 bottles identified as the strep species. 2. Sepsis. 3. Altered mental status, which appears improved and may be related to sepsis. 4. Leukocytosis. 5. Acute kidney disease. RECOMMENDATIONS 1. Continue vancomycin. Follow vancomycin level. 2. Add Ceftriaxone. 3. Repeat blood cultures. 4. DORIE as planned by Cardiology. 5. Monitor renal function. The patient has reported allergy to ampicillin. However, she has tolerated amoxicillin and allergy was probably not a true allergy. Edwin Harrison MD Mar 14, 2017 13:04
--- NOTE | 2017-03-14 13:43 | EC ---
Study Study Date:03/13/2017 STUDY CONCLUSIONS SUMMARY - Procedure narrative: Transthoracic echocardiography. Image quality was fair. Scanning was performed from the parasternal, apical, and subcostal acoustic windows. - Left ventricle: The cavity size was normal. Wall thickness was normal. Systolic function was vigorous. The estimated ejection fraction was in the range of 65% to 70%. Wall motion was normal; there were no regional wall motion abnormalities. - Mitral valve: Mild regurgitation. - Tricuspid valve: Trace to mild regurgitation. If LV function is below 40, please consider prescribing an ACEI or ARB or document rationale for non-use. PROCEDURE DATA STUDY STATUS: Elective. Procedure: Transthoracic echocardiography. Image quality was fair. Scanning was performed from the parasternal, apical, and subcostal acoustic windows. Study completion: The patient tolerated the procedure well. Transthoracic echocardiography. M-mode, complete 2D, complete spectral Doppler, and color Doppler. Height: Height: 65in. Weight: Weight: 149.7lb. Body mass index: BMI: 25kg/m^2. Body surface area: BSA: 1.75m^2. Patient status: Inpatient. CARDIAC ANATOMY LEFT VENTRICLE: The cavity size was normal. Wall thickness was normal. Systolic function was vigorous. The estimated ejection fraction was in the range of 65% to 70%. Wall motion was normal; there were no regional wall motion abnormalities. AORTIC VALVE: Trileaflet; normal thickness leaflets. Doppler: Transvalvular velocity was within the normal range. There was no stenosis. No regurgitation. Indexed valve area: 0.69cm^2/m^2 (VTI). Indexed valve area: 0.71cm^2/m^2 (Vmax). Mean gradient: 40mm Hg (S). Peak gradient: 78mm Hg (S). AORTA: Aortic root: The aortic root was normal in size. MITRAL VALVE: Structurally normal valve. Doppler: Transvalvular velocity was within the normal range. There was no evidence for stenosis. Mild regurgitation. Valve area by pressure half-time: 3.93cm^2. Indexed valve area by pressure half-time: 2.25cm^2/m^2. Indexed valve area by continuity equation (using LVOT flow): 1.1cm^2/m^2. Mean gradient: 4mm Hg (D). Peak gradient: 15mm Hg (D). LEFT ATRIUM: The atrium was normal in size. RIGHT VENTRICLE: The cavity size was normal. Wall thickness was normal. PULMONIC VALVE: Doppler: Transvalvular velocity was within the normal range. There was no evidence for stenosis. No regurgitation. TRICUSPID VALVE: Structurally normal valve. Doppler: Transvalvular velocity was within the normal range. Trace to mild regurgitation. Peak gradient: 33mm Hg (D). PULMONARY ARTERY: The main pulmonary artery was normal-sized. Systolic pressure was within the normal range. RIGHT ATRIUM: The atrium was normal in size. PERICARDIUM: There was no pericardial effusion. SYSTEMIC VEINS: Inferior vena cava: The vessel was normal in size. Patient weight: 149.7lb _Ejection fraction:_ 65-75% _Fractional shortening:_ 32% up to 5Kg 5-11.5Kg 11.6-22.9Kg 23-45Kg 45-57Kg Aortic Root 7-13 <17 13-22 17-27 17-27 LA diam 6-13 <23 24-38 33-47 37-40 RVID 10-17 7-15 7-15 7-18 8-17 LVIDd 12-22 <32 24-38 33-47 37-40 LVPW 2-4 3-6 5-7 6-8 7-8 IVS 2-4 3-6 5-7 6-8 7-8 BASIC MEASUREMENTS ADULT NORMAL Left ventricle LV internal dimension, ED, chordal 48.4 mm 43-52 level, PLAX LV internal dimension, ES, chordal 30.8 mm 23-38 level, PLAX Fractional shortening, chordal level, 36 % >29 PLAX LV posterior wall thickness, ED 8.36 mm IVS/LVPW ratio, ED 1.23 <1.3 Ventricular septum Septal thickness, ED 10.3 mm Aortic valve Leaflet separation *10 mm 15-26 Left atrium Anterior-posterior dimension 49 mm Anterior-posterior dimension index *2.8 cm/m^2 <2.2 Right ventricle RV internal dimension, ED, PLAX 29 mm 19-38 BASIC MEASUREMENTS ADULT NORMAL Aortic valve Leaflet separation *10 mm 15-26 Aorta Root diameter, ED 29 mm 20-37 DOPPLER MEASUREMENTS ADULT NORMAL Aortic valve Peak velocity, S 441 cm/s Mean velocity, S 288 cm/s VTI, S 70.1 cm Mean gradient, S 40 mm Hg Peak gradient, S 78 mm Hg Valve area index, VTI 0.69 cm^2/m^2 Valve area index, Vmax 0.71 cm^2/m^2 Mitral valve Peak E-wave velocity 162 cm/s Peak A-wave velocity 99.7 cm/s Mean velocity, D 78.5 cm/s Pressure half-time 56 ms Mean gradient, D 4 mm Hg Peak gradient, D 15 mm Hg Peak E/A ratio 1.6 Valve area, pressure half-time 3.93 cm^2 Valve area index, pressure half-time 2.25 cm^2/m^2 Valve area index, LVOT continuity 1.1 cm^2/m^2 Tricuspid valve Peak gradient, D 33 mm Hg Maximal inflow velocity 289 cm/s Pulmonic valve Peak velocity, S 132 cm/s LEGEND: Mean values are shown as u=mean value. Asterisk (*) muir values outside specified normal range. Prepared and signed by Kirill Arellano [id number]
[2017-03-14] MEDS: cefTRIAXone INJ 2,000 MG in SODIUM CHLORIDE 0.9% INJ 100 ML IV SCH (14:43)
[2017-03-14] MEDS: CALCIUM CARBONATE 500 MG CHEWABLE TAB CHEW PRN ×2 (17:24→21:40)
--- NOTE | 2017-03-14 18:07 | MB ---
cc: JOSEP MONSALVE M.D.,GALLO MCMILLAN DATE OF SURGERY: 03/12/2017 HISTORY: Thank you Dr. Rosario for asking me to see this very pleasant 76-year-old female who presents with multiple medical problems. She has had 10 days of severe weakness. She was noted in the ER to be in atrial flutter with possibly a rapid ventricular response. She has a history of thrombocytopenia has been unable to take Coumadin in the past. She has had a history of atrial fibrillation and aortic stenosis with a bovine aortic valve replacement, hyperlipidemia, hypothyroidism, gastroesophageal reflux disease and diabetes. She is continued on Lipitor for cholesterol management. PAST MEDICAL HISTORY: Past medical history is positive for aortic stenosis status post aortic valve replacement, diabetes, appendectomy, hysterectomy, COPD with gastroesophageal reflux disease, hypothyroidism. ALLERGIES IODINE CONTRAST AMPICILLIN ADHESIVES MACROBID FAMILY HISTORY: Family history is negative cancer and Alzheimer's disease. SOCIAL HISTORY: Rare alcohol. PHYSICAL EXAMINATION: VITAL SIGNS: Pulse was 104, blood pressure was 107/67, respirations 20. HEAD, EYES, EARS, NOSE, AND THROAT: Eyes show no xanthelasma showed no cyanosis, pallor. NECK: Showed no JVD. HEART: Two heart sounds, no murmurs. CHEST: The chest was clear. ABDOMEN: The abdomen was soft, no hepatosplenomegaly. EXTREMITIES: Legs with edema. NEUROLOGIC: The patient had some difficulty following commands but he was not responsive. No definite obvious lateralizing signs. RADIOLOGIC: Electrocardiogram shows atrial fibrillation / flutter nonspecific ventral septal changes. IMAGING STUDIES Showed a head CT that was negative. LABORATORY TESTS: white counts markedly elevated at 18.1, hemoglobin 11.5, MCV 86.2. free T4 1.61. Troponin I 0.06 0.15, 0.13 ASSESSMENT/PLAN This is a complex patient with multiple medical problems, primary extreme exhaustion, I am concerned that she might have some type of sepsis. It appears she has had blood cultures but there has been no growth. Influenza type A and B were negative. White counts markedly elevated. 1. She has been having a stroke. She is going to be having a CTA of her brain. She was also be probably transferred to the main hospital, we will follow with you. 2. Cardiac-ramirez she does not need to be on anticoagulation for atrial flutter and now with the further complication of possible neurological event. We will await neurologist assessment. I have had a discussion with Dr. Colvin in detail and also with Dr. Jon. 3. R/o sepsis Josep Monsalve MD, FRCP,[facility] ZAMZAM/linda /7:48 PM /5:52 PM MTDHarriet
--- NOTE | 2017-03-14 20:33 | HHI.CCPN ---
Subjective Remarks/Hospital Course Ms. Jerome is a pleasant 76 year old female with a history of severe aortic stenosis s/p AVR (bovine valve), primary biliary cirrhosis, DM who presented to the ED on 03/11/2017 due to generalized weakness. She has been very tired and sleeping most of the hours. 03/13: Currently afebrile. Noted lumbar puncture performed overnight. Glucose possibly inappropriately low otherwise unremarkable. Some red blood cells/ leukocytosis. Currently on aztreonam, gentamicin and Flagyl continued by my colleague. Infectious disease consult and will defer to their recommendations. Awake and alert and oriented 3. On low-dose dopamine at 4 g per kilogram per minute bradycardia denies chest pain, shortness of breath. Subjective 03/14: Afebrile. Remains on dopamine drip at 6 mcg. On attempt to wean remains bradycardic. Appears to be in sinus bradycardia at the present time. Noted elevated white blood cell count today. Rocephin added by infectious disease. Echocardiogram revealed no signs of endocarditis. Plan for DORIE on Friday. Objective Vital Signs Date Time Temp Pulse Resp B/P Pulse Ox O2 Delivery O2 Flow Rate FiO2 03/14/17 18:00 54 03/14/17 16:00 98.3 26 104/50 100 03/14/17 11:15 21 03/13/17 19:10 Nasal Cannula 2.00 Intake and Output 03/13/17 03/13/17 03/14/17 08:00 16:00 00:00 Intake Total 801 ml 1136 ml 796 ml Output Total 650 ml 575 ml Balance 151 ml 561 ml 796 ml Result Diagram: 03/14/17 0500 03/14/17 0500 Other Results Microbiology Date/Time Procedure Status Source Growth 03/14/17 14:56 Aerobic Blood Culture Received Blood Peripheral Pending 03/14/17 14:56 Anaerobic Blood Culture Received Blood Peripheral Pending 03/13/17 02:00 Aerobic Blood Culture - Preliminary Resulted Blood Arterial Line Streptococcus Species 03/13/17 02:00 Anaerobic Blood Culture - Preliminary Resulted Gram Positive Cocci 03/12/17 23:40 Gram Stain - Final Resulted Cerebral Spinal Fluid Lumbar Puncture 03/12/17 23:40 CSF Culture - Preliminary Resulted Cerebral Spinal Fluid Lumbar Puncture NO GROWTH IN 24 HOURS. 03/12/17 01:08 Urine Culture - Final Complete Urine Clean Catch 50-100,000 CFU/ML MIXED GRAM POSITIVE... Imaging Last Impressions Chest X-Ray 03/13/17 0759 Signed Impressions: Service Date/Time: February 07:59 - CONCLUSION: Right IJ line distal tip at the cavoatrial junction. No pneumothorax is visualized. Reynaldo Higgins MD Neck CTA 03/12/17 0000 Signed Impressions: Service Date/Time: Sunday, March 12, 2017 20:22 - CONCLUSION: Slight atherosclerosis of both carotid bifurcations without narrowing. Dominant left vertebral artery. Reynaldo Lazar MD Head CTA 03/12/17 0000 Signed Impressions: Service Date/Time: Sunday, March 12, 2017 20:22 - CONCLUSION: Normal intracranial arteries. Reynaldo Lazar MD Head CT 03/12/17 0000 Signed Impressions: Service Date/Time: Sunday, March 12, 2017 19:02 - CONCLUSION: Negative noncontrast head CT. Reynaldo Lazar MD Objective Remarks GENERAL: 76-year-old female, critically ill currently resting in bed in no acute distress SKIN: Warm and dry. No rash HEAD: Atraumatic. Normocephalic. EYES: Pupils equal and round about 2-3 mm bilaterally and reactive. No scleral icterus. No injection or drainage. ENT: No nasal bleeding or discharge. Mucous membranes pink and moist. NECK: Trachea midline. No JVD. Right IJ is clean dry and intact CARDIOVASCULAR: Bradycardia, NL S1S2, 2/6 systolic murmur RSB. No JVD. RESPIRATORY: No accessory muscle use. Clear to auscultation. Breath sounds equal bilaterally. GASTROINTESTINAL: Abdomen soft, non-tender, nondistended. Hypoactive bowel sounds are appreciated MUSCULOSKELETAL: Extremities without difficulty and peripheral edema. No obvious deformities. NEUROLOGICAL: Awake and alert. No obvious cranial nerve deficits. Motor grossly within normal limits. Five out of 5 muscle strength in the arms and legs. Normal speech. PSYCHIATRIC: Appropriate mood and affect; insight and judgment normal. Vascular Central Line Catheter: Yes Assessment to: Continue Date of Insertion: Mar 13, 2017 Line: Central Venous Catheter Side: Right Location: Internal, Jugular A/P Assessment and Plan Neuro/Psych: Acute encephalopathy CT head/ 03/12 revealed no acute intracranial findings. CTA head 03/12 revealed no acute signs of bleeding/aneurysm CTA neck 03/12 revealed mild plaques bilateral bulb/internal carotid otherwise unremarkable. Discussed with Dr. Vidal /neurology. Likely secondary to underlying sepsis/ bradycardic. Would recommend anticoagulation will discuss with cardiology prior to initiation of heparin drip. Dr. Monsalve is okay with this recommendation. See orders CV: Sinus bradycardia History of bioprosthetic aortic valve replacement 2012 3000FXT at [facility] Elevated troponin Currently on dopamine 6 mcg/kg/m for heart rate management due to bradycardia Holding home medications losartan 100 mg by mouth daily in light of hypotension. Continue Lipitor 10 mg by mouth daily for dyslipidemia. Echocardiogram revealed EF 65-70%. No regional wall motion abnormality. Mild MR/TR. Specifically all valves shows no signs of endocarditis Cycle troponins Dr. Monsalve/cardiology plans DORIE on Friday Resp: Nasal cannula to maintain saturations greater than equal to 92% Incentive spirometry while awake On ProAir inhaler every 6 hours at home for shortness of breath. As needed albuterol nebs every 2 hours GI: Stage IV biliary cirrhosis Gastro esophageal reflux disease Hiatal hernia Hypo-albuminemia On Prilosec 20 mg by mouth daily home for gastroesophageal reflux disease. Substituting Protonix here 40 mg IV On spironolactone 25 mg daily and Lasix 20 mg 2 times a week for likely cirrhosis. Currently on hold due to hypotension. Resume when clinically indicated Continue rosaura 500 mg Twice a day/home medication for her biliary cirrhosis. She will bring this medication home as hospital does not have appropriate dosage Advanced heart healthy diet : Aggarwal will be placed for accurate I's and O's in a critically ill patient Endo: Diabetes mellitus Hypothyroidism Holding Tresiba/home medication 10 units before meals/at bedtime -Currently on Levemir 7 units at night Sliding scale insulin to maintain euglycemia/low regimen before meals at bedtime Decrease Levoxyl from 100 -75 mcg daily. TSH was low at 0.2. T4 was elevated at 1.6. Renal: Acute kidney injury Monitor urine output Accurate I's and O's Currently on normal saline at 50 cc an hour. We'll discontinue Heme: Leukocytosis Anemia History of basal carcinoma/melanoma? of the nares Monitor CBC. Follow trends. Infectious possible etiology Thrombocytopenia has resolved ID: Strep bacteremia Puncture - opening pressure 18 cm H2O. And glucose might be inappropriately low. Infectious disease Dr. Dontfraid following Pertinent cultures 03/14 - blood cultures - pending 03/13 - blood cultures 1 - pending 03/12 - UA -mixed hemanth 03/12 - blood culture 1 -gram-positive cocci 03/12 - CSF - Gram stain negative. 03/11 - blood cultures 2 -strep bacteremia FEN: Hyponatremia - resolved Replace electrolytes electrolytes as clinically indicated MSK: PT/OT evaluate and treat Access - Right IJ CVL day 2 placed 03/13/17 Prophylaxis - GI -Protonix - DVT - SCD/currently holding recorded prophylaxis post lumbar puncture. Dr. Monsalve per reviewing records recommended Coumadin without full dose anticoagulation bridge. Currently okay with heparin drip as we'll get DORIE on Friday. Critical Care: The total critical care time was 45 minutes. Time to perform other separately billable procedures was not included in the critical care time. Discussed with at bedside as well as patient. Care plan discussed all questions answered Mandeep Velasco MD Mar 14, 2017 20:33
[2017-03-14] MEDS: PATIENT OWN MEDICATION PO SCH (21:00)
[2017-03-14] MEDS: SENNOSIDES 8.6 MG TAB PO SCH (21:00)
[2017-03-14] MEDS: ATORVASTATIN 10 MG TAB PO SCH (21:39)
[2017-03-14 22:12] LABS: HEMATOCRIT 32.5 % (35.0-46.0); MEAN CELL VOLUME 85.3 FL (80.0-100.0); MEAN CORPUSCULAR HEMOGLOBIN 27.9 PG (27.0-34.0); MEAN CORPUSCULAR HGB CONC 32.7 % (32.0-36.0); PLATELET COUNT 127 TH/MM3 (150-450); RED CELL DISTRIBUTION WIDTH 15.4 % (11.6-17.2); REVIEW FLAG FINAL; WHITE BLOOD COUNT 15.1 TH/MM3 (4.0-11.0)
[2017-03-14 22:23] LABS: APTT (PATIENT) 26.8 SEC (24.3-30.1); INTERNATIONAL NORMALIZED RATIO 1.2 RATIO; PROTHROMBIN TIME - PATIENT 13.4 SEC (9.8-11.6)
[2017-03-14] MEDS: HEPARIN-D5W INJ 250 ML IV SCH (22:49)
[2017-03-15] VITALS (12 sets, daily range): BP systolic 108–148; BP diastolic 56–65; PULSE 57–91; RESP 16–24; TEMP 97.9–99; O2SAT 97–100
[2017-03-15] MEDS: CHLORHEXIDINE GLUCONATE 2 % 1 PACK (2 CLOTHS) TOP SCH (04:00)
[2017-03-15] MEDS: LEVOTHYROXINE SODIUM 75 MCG TAB PO SCH (06:07)
[2017-03-15] MEDS: INSULIN NovoLIN REGULAR SUPPLEMENTAL SCALE SQ SCH (06:07)
--- NOTE | 2017-03-15 06:10 | RADRPT ---
EXAM DATE/TIME: 03/15/2017 04:56 [place] COMPARISON: CHEST SINGLE AP, March 13, 2017, 7:59. INDICATIONS : Shortness of breath, possible pulmonary disease. MEDICAL HISTORY : Hypertension. Diabetes mellitus type II. Congestive heart failure. SURGICAL HISTORY : Appendectomy. Cholecystectomy. Hiatal hernia. Coronary stent ENCOUNTER: Subsequent ACUITY: 2 weeks PAIN SCORE: Non-responsive. LOCATION: Bilateral chest FINDINGS: Basilar consolidation and effusion worsening on the left. No pneumothorax. Heart size stable, thin no rmal limits. Patient has had previous median sternotomy. Right internal jugular central venous catheter with tip in the right atrium again noted. CONCLUSION: Worsening consolidation and effusion at the left lung base. Reynaldo Lazar MD on March 15, 2017 at 6:08 Board Certified Radiologist. This report was verified electronically.
[2017-03-15 06:58] LABS: ALKALINE PHOSPHATASE 188 U/L (45-117); ALT (GPT) 29 U/L (10-53); ANION GAP 8 MEQ/L (5-15); AST (GOT) 42 U/L (15-37); BICARBONATE 22.9 MEQ/L (21.0-32.0); BLOOD UREA NITROGEN 17 MG/DL (7-18); CHLORIDE 108 MEQ/L (98-107); CREATINE KINASE 116 U/L (26-192); GLOMERULAR FILTRATION RATE 106 ML/MIN (>89); MAGNESIUM 2.4 MG/DL (1.5-2.5); POTASSIUM 3.9 MEQ/L (3.5-5.1); SODIUM (NA) 139 MEQ/L (136-145); TOTAL BILIRUBIN ADULT 1.5 MG/DL (0.2-1.0)
[2017-03-15 07:03] LABS: AUTOMATED NEUTROPHIL # 12.8 TH/MM3 (1.8-7.7); BASOPHIL % 0.2 % (0.0-2.0); EOSINOPHIL % 0.1 % (0.0-4.0); HEMO FLAGS DIFF FINAL; LYMPH % 5.6 % (9.0-44.0); LYMPHOCYTE # 0.8 TH/MM3 (1.0-4.8); MEAN CORPUSCULAR HEMOGLOBIN 27.9 PG (27.0-34.0); MEAN CORPUSCULAR HGB CONC 32.8 % (32.0-36.0); NEUT % 91.1 % (16.0-70.0); PLATELET COUNT 130 TH/MM3 (150-450); RED BLOOD COUNT 4.12 MIL/MM3 (4.00-5.30); RED CELL DISTRIBUTION WIDTH 15.5 % (11.6-17.2)
[2017-03-15 07:10] LABS: APTT (PATIENT) 44.1 SEC (24.3-30.1)
[2017-03-15] MEDS ORDERED: GLUCAGON 1 MG/ML VIAL OTHER PRN (08:15)
[2017-03-15] MEDS ORDERED: DEXTROSE 50% IN WATER 50 ML VIAL(D50) IV PUSH PRN (08:15)
--- NOTE | 2017-03-15 08:30 | HHI.CCPN ---
Subjective Remarks/Hospital Course Ms. Jerome is a pleasant 76 year old female with a history of severe aortic stenosis s/p AVR (bovine valve), primary biliary cirrhosis, DM who presented to the ED on 03/11/2017 due to generalized weakness. She has been very tired and sleeping most of the hours. 03/13: Currently afebrile. Noted lumbar puncture performed overnight. Glucose possibly inappropriately low otherwise unremarkable. Some red blood cells/ leukocytosis. Currently on aztreonam, gentamicin and Flagyl continued by my colleague. Infectious disease consult and will defer to their recommendations. Awake and alert and oriented 3. On low-dose dopamine at 4 g per kilogram per minute bradycardia denies chest pain, shortness of breath. 03/14: Afebrile. Remains on dopamine drip at 6 mcg. On attempt to wean remains bradycardic. Appears to be in sinus bradycardia at the present time. Noted elevated white blood cell count today. Rocephin added by infectious disease. Echocardiogram revealed no signs of endocarditis. Plan for DORIE on Friday. Subjective 03/15 Blood cultures 03/11, , all persistently positive and those from 03/14 are pending. DORIE planned. Nauseated, vomited x1 this morning. Poor appetite. Last BM was 3 days ago. Objective Vital Signs Date Time Temp Pulse Resp B/P Pulse Ox O2 Delivery O2 Flow Rate FiO2 03/15/17 06:00 63 03/15/17 04:00 99.0 24 133/63 98 03/14/17 19:02 21 03/13/17 19:10 Nasal Cannula 2.00 Intake and Output 03/14/17 03/14/17 03/15/17 08:00 16:00 00:00 Intake Total 616 ml 1266 ml 648 ml Output Total 750 ml 350 ml Balance 616 ml 516 ml 298 ml Result Diagram: 03/15/17 0550 03/15/17 0550 Imaging Last Impressions Chest X-Ray 03/13/17 0759 Signed Impressions: Service Date/Time: February 07:59 - CONCLUSION: Right IJ line distal tip at the cavoatrial junction. No pneumothorax is visualized. Reynaldo Higgins MD Neck CTA 03/12/17 0000 Signed Impressions: Service Date/Time: Sunday, March 12, 2017 20:22 - CONCLUSION: Slight atherosclerosis of both carotid bifurcations without narrowing. Dominant left vertebral artery. Reynaldo Lazar MD Head CTA 03/12/17 0000 Signed Impressions: Service Date/Time: Sunday, March 12, 2017 20:22 - CONCLUSION: Normal intracranial arteries. Reynaldo Lazar MD Head CT 03/12/17 0000 Signed Impressions: Service Date/Time: Sunday, March 12, 2017 19:02 - CONCLUSION: Negative noncontrast head CT. Reynaldo Lazar MD Objective Remarks Drips: Heparin Dopamine 5 g per KG per minute GENERAL: 76-year-old female, ill appearing. SKIN: Warm and dry. No rash HEAD: Atraumatic. Normocephalic. EYES: Pupils equal and round about 2-3 mm bilaterally and reactive. No scleral icterus. No injection or drainage. ENT: No nasal bleeding or discharge. Mucous membranes pink and moist. NECK: Trachea midline. No JVD. Right IJ dressing clean dry and intact CARDIOVASCULAR: Bradycardia, NL S1S2, 3/6 systolic murmur RSB. No JVD. RESPIRATORY: No accessory muscle use. Clear to auscultation. Breath sounds equal bilaterally. GASTROINTESTINAL: Abdomen soft, non-tender, nondistended. Hypoactive bowel sounds are appreciated MUSCULOSKELETAL: Extremities without difficulty and peripheral edema. No obvious deformities. NEUROLOGICAL: Awake and alert, some repetitive conversation. No obvious cranial nerve deficits. Motor grossly within normal limits. Five out of 5 muscle strength in the arms and legs. Normal speech. Date of Insertion: Mar 13, 2017 Line: Central Venous Catheter Side: Right Location: Internal, Jugular A/P Assessment and Plan Neuro/Psych: Acute encephalopathy, improved CT head/ 03/12 revealed no acute intracranial findings. CTA head 03/12 revealed no acute signs of bleeding/aneurysm CTA neck 03/12 revealed mild plaques bilateral bulb/internal carotid otherwise unremarkable. Discussed with Dr. Vidal /neurology. Likely secondary to underlying sepsis/ bradycardic. Recommended anticoagulation; on heparin drip. CV: Atrial fib Now Sinus bradycardia History of bioprosthetic aortic valve replacement 2012 3000FXT at [facility] Elevated troponin Hyperlipidemia Currently on dopamine 5 mcg/kg/m for heart rate management due to sinus bradycardia Holding home medications losartan 100 mg by mouth daily in light of hypotension. Continue Lipitor 10 mg by mouth daily for dyslipidemia. Echocardiogram revealed EF 65-70%. No regional wall motion abnormality. Mild MR/TR. Specifically all valves shows no signs of endocarditis Troponin 0.18 Continue Lipitor 10 mg by mouth daily at bedtime [id number] - On heparin. Dr. Monsalve/cardiology plans DORIE on Friday Resp: Nasal cannula to maintain saturations greater than equal to 92% Incentive spirometry while awake On ProAir inhaler every 6 hours at home for shortness of breath. As needed albuterol nebs every 2 hours GI: Stage IV biliary cirrhosis Gastro esophageal reflux disease Hiatal hernia Hypo-albuminemia On Prilosec 20 mg by mouth daily home for gastroesophageal reflux disease. Substituting Protonix here 40 mg IV On spironolactone 25 mg daily and Lasix 20 mg 2 times a week for likely cirrhosis. Currently on hold due to hypotension. Resume when clinically indicated Continue rosaura 500 mg Twice a day/home medication for her biliary cirrhosis. She will bring this medication home as hospital does not have appropriate dosage Advanced heart healthy diet Noted Dr. Garcia consulted FEN/RENAL: Acute kidney injury Hyponatremia - resolved Voiding. Monitoring output. Fluids on KVO. Endo: Diabetes mellitus Hypothyroidism Holding Tresiba/home medication 10 units before meals/at bedtime -Detemir 10 units subcutaneous twice a day. Adjsut to medium dose sliding scale ac/hs Decrease Levoxyl from 100 -75 mcg daily. TSH was low at 0.2. T4 was elevated at 1.6. Heme: Anemia History of basal carcinoma/melanoma? of the nares Heparin drip Monitor CBC. Thrombocytopenia has resolved ID: Strep bacteremia TTE negative for vegetations. Bioprosthetic aortic valve. DORIE plan for Friday Continue Rocephin started 03/[address] Harrison following Pertinent cultures 03/14 - blood cultures - pending 03/13 - blood cultures 1 - strep 03/12 - UA -mixed hemanth 03/12 - blood culture 1 -strep 03/12 - CSF - Gram stain negative. 03/11 - blood cultures 2 -strep bacteremia MSK: PT evaluate and treat Access - Right IJ CVL placed 03/13/17 #3 Prophylaxis - GI -Protonix - DVT - SCD. Heparin drip. Pt updated at bedside. Critical Care: The total critical care time was 35 minutes. Time to perform other separately billable procedures was not included in the critical care time. Quiana Roth MD Mar 15, 2017 08:30
[2017-03-15] MEDS: SENNOSIDES 8.6 MG TAB PO SCH ×2 (09:00→21:00)
[2017-03-15] MEDS: PATIENT OWN MEDICATION PO SCH (09:00)
[2017-03-15] MEDS: SODIUM CHLORIDE 0.9% FLUSH 10 ML FLUSH IVF SCH (09:00)
[2017-03-15] MEDS: PANTOPRAZOLE SODIUM 40 MG VIAL IV SCH (09:42)
[2017-03-15] MEDS: DOCUSATE SODIUM 100 MG CAP PO SCH ×2 (09:42→21:00)
[2017-03-15] MEDS: INSULIN DETEMIR 100 UNITS/ML VIAL SQ SCH ×2 (09:43→21:00)
[2017-03-15] MEDS: MULTIVITAMIN TAB PO SCH (09:43)
[2017-03-15] MEDS: SODIUM CHLORIDE 0.9% FLUSH 10 ML FLUSH IV FLUSH SCH ×2 (09:44→21:00)
[2017-03-15] MEDS: INSULIN ASPART SUPPLEMENTAL SCALE SQ SCH ×3 (11:00→21:56)
--- NOTE | 2017-03-15 12:49 | MB ---
cc: JUSTIN LAL M.D., HUMAYUN A. M.D. MOUSSLY, SOUHEIL DATE OF CONSULTATION: 03/15/2017 DATE OF : 1940 HISTORY OF PRESENT ILLNESS The patient is a 76-year-old female well-known to me with a long history of primary biliary cholangitis which has been quite stable. She has had ten days of fatigue, lethargy and fevers and was found to have sepsis, possibly endocarditis. She denies hematemesis, melena, ascites and pedal edema. She had been following with [facility] for the past twelve years regarding the primary biliary cholangitis, but since things have been stable she is no longer following with them. Her most recent laboratory and radiologic studies about six months ago were all stable with respect to her cirrhosis. MEDICAL HISTORY Otherwise significant for severe aortic stenosis status post aortic valve replacement with a bovine valve. She has diabetes mellitus. PAST SURGICAL HISTORY Besides the aortic valve replacement is a hysterectomy and appendectomy. MEDICATIONS ON ADMISSION 1. NovoLog insulin. 2. Spironolactone 25 mg daily. 3. ProAir. 4. Metanx one caplet b.i.d. 5. Premarin. 6. Lasix 20 mg twice per week. 7. Losartan 100 mg daily. 8. Omeprazole 20 mg daily. 9. Lipitor 10 mg daily. 10. Synthroid 100 mcg daily. 11. Multivitamin. 12. Ursodeoxycholic acid 500 mg b.i.d. 13. She had been taking a nonselective beta edd but there is no such product currently on her list. ALLERGIES MACROBID, ADHESIVES, AMPICILLIN, CONTRAST MEDIA, IODINE, LEVAQUIN, SULFA. FAMILY HISTORY Unremarkable for gastrointestinal disorders. SOCIAL HISTORY Alcohol use. No tobacco use. She drinks very little and knows she should be avoiding this altogether. REVIEW OF SYSTEMS She has had some recent confusion with these episodes of fever. No headaches or history of seizures or strokes. No vision difficulties. No auditory problems. No urinary symptoms. No chest pains or palpitations. No dysphagia or odynophagia and no heartburn symptoms. She believes her weight is stable. There has been no increased fluid in the abdomen or in the lower extremities. She has no history of pancreatic disease or adrenal disease. Her last colonoscopy was performed in May of 2014. No abnormalities were found at that time though she has a history of colon polyps (repeat colonoscopy is due July of 2019.) Most recent upper endoscopy August of 2016 revealed grade 1 varices with portal hypertensive gastropathy and gastric antral vascular ectasias. An MRI of the liver July of 2016 revealed cirrhosis with no masses, mild splenomegaly was noted with no ascites, small GE junction varices were evident. The last time results from [facility] from July did not include an INR so a MELD Score could not be calculated, but her bilirubin was 0.6 with a platelet count of 74,000 and albumin of 4.1 and a creatinine of 0.6. PHYSICAL EXAMINATION VITAL SIGNS: On physical examination today her weight is 72.6 kg. Her temperature is 99.0, pulse 63, respiratory rate 24, blood pressure 133/63. GENERAL: She is alert. She is oriented x3. HEENT: She is anicteric. Extraocular motions are intact. I appreciate no submandibular, cervical, supraclavicular, axillary or epitrochlear adenopathy. LUNGS: Clear to auscultation. HEART EXAM: Reveals a 3/6 systolic murmur and a regular rate and rhythm. ABDOMINAL EXAM: Good bowel sounds with no appreciable bruit and the abdomen is soft. There is minimal right upper quadrant tenderness with no appreciable hepatosplenomegaly. No masses are palpable. EXTREMITIES: No pedal edema, Dupuytren's contractures or palmar erythema. She is missing several digits on her left hand. LABORATORY STUDIES Today white count 14.0 (white count was 22.1 on March 13), hemoglobin is 11.5, platelets 130. INR yesterday was 1.2. Sodium 139, potassium 3.9, BUN 17, creatinine 0.56, bilirubin total 1.5, AST 42, ALT 29, alkaline phosphatase 188, albumin 2.2. RADIOLOGIC STUDIES Chest x-ray performed this morning reveals worsening consolidation and effusion at the left lung base. No abdominal imaging studies were performed this admission. IMPRESSION Sepsis, possibly endocarditis. A transesophageal echocardiogram is scheduled for March 17. From the GI tract standpoint, her primary biliary cholangitis is stable. There is minimal elevation of the bilirubin but this may be related to the sepsis picture. The alkaline phosphatase is minimally elevated and stable, consistent with her primary biliary cholangitis. She continues to receive ursodeoxycholic acid, the appropriate medication for her primary biliary cholangitis. Ideally, a nonselective beta edd such as propranolol or Nadolol should be given, when her hemodynamic status allows, because of the portal hypertension and grade 1 varices. We will check an alpha fetoprotein level as part of cirrhosis screening for hepatoma. When convenient we can repeat a liver MRI as it has been about six months since the last exam. The patient's current medications here in the hospital include 1. Insulin. 2. Ursodeoxycholic acid. 3. Ceftriaxone. 4. Levofloxacin. 5. Vancomycin. 6. Pantoprazole. 7. Hydrocodone p.r.n. 8. Albuterol. 9. Brethine. 10. Atorvastatin. I will follow along closely with you. MD BRITTNY Anderson/RAYMOND /8:32 AM /12:11 PM BARB
[2017-03-15] MEDS: URSODIOL PO SCH ×2 (13:00→21:55)
[2017-03-15] MEDS: VANCOMYCIN INJ 1,500 MG in SODIUM CHLORID 0.9% 500 ML INJ 500 ML IV SCH (13:04)
[2017-03-15] MEDS: cefTRIAXone INJ 2,000 MG in SODIUM CHLORIDE 0.9% INJ 100 ML IV SCH (13:04)
--- NOTE | 2017-03-15 14:47 | PD.CARD.PN ---
Subjective Subjective Remarks No CP or SOB, feels much better today Objective Medications Current Medications Medications (Trade) Dose Ordered Sig/Tunde Route Start Time Stop Time Status Last Admin (NS Flush) 2 ml UNSCH PRN IV FLUSH 03/12/17 01:00 03/14/17 09:14 (Narcan Inj) 0.4 mg UNSCH PRN IV 03/12/17 01:00 Atorvastatin Calcium 10 mg 10 mg HS PO 03/12/17 21:00 03/14/17 21:39 (DOPamine INJ PREMIX) 500 ml @ 0 mls/hr TITRATE IV 03/13/17 00:30 03/14/17 09:13 (Brethine Inj) 1 mg UNSCH PRN SQ 03/13/17 04:45 (Synthroid) 75 mcg DAILY@06 PO 03/14/17 06:00 03/15/17 06:07 (NS Flush) DAILY IVF 03/13/17 09:00 03/14/17 09:14 (NS Flush) UNSCH PRN IVF 03/13/17 08:00 03/14/17 09:13 (NS Flush) 2 ml UNSCH PRN IV FLUSH 03/13/17 08:30 03/14/17 09:13 (NS Flush) 2 ml BID IV FLUSH 03/13/17 09:00 03/15/17 09:44 (Tylenol) 650 mg Q6H PRN PO 03/13/17 08:30 03/14/17 21:41 ([place] 5-325 Mg) 1 tab Q4H PRN PO 03/13/17 08:30 (Protonix Inj) 40 mg DAILY IV 03/13/17 09:00 03/15/17 09:42 (Zofran Inj) 4 mg Q6H PRN IV 03/13/17 08:30 (Colace) 100 mg BID PO 03/13/17 09:00 03/15/17 09:42 Miscellaneous Information 1 Q361D XX 03/13/17 08:30 03/14/17 09:14 (Chlorhexidine 2% Cloth) 3 pack Taper DAILY@04 TOP 03/14/17 04:00 03/10/18 03:59 03/15/17 04:00 (Chlorhexidine 2% Cloth) 3 pack UNSCH PRN TOP 03/13/17 08:30 Multivitamins 1 tab 1 tab DAILY PO 03/13/17 11:30 03/15/17 09:43 Pharmacy Profile Note 0 ml @ 0 mls/hr UNSCH OTHER 03/13/17 09:30 (Vancomycin Inj/ NS 500 ml Inj) 515 ml @ 250 mls/hr Q24H IV 03/13/17 12:00 03/15/17 13:04 Miscellaneous Information SPECIFIC LAB TO BE DRAWN:VANCOMYCIN TROUGH DATE TO... ONCE ONCE .XX 03/16/17 11:45 03/16/17 11:46 Insulin Detemir 10 units 10 units BID SQ 03/13/17 21:00 03/15/17 09:43 (Rocephin Inj/NS Inj) 100 ml @ 200 mls/hr Q24H IV 03/14/17 13:00 03/15/17 13:04 (Tums Chew) 500 mg Q2H PRN CHEW 03/14/17 17:00 03/14/17 21:40 Sennosides 17.2 mg 17.2 mg Q12H PO 03/14/17 21:00 (Heparin-D5W Inj) 250 ml @ 0 mls/hr TITRATE IV 03/14/17 20:45 03/14/17 22:49 (D50w (Vial) Inj) 25 ml UNSCH PRN IV PUSH 03/15/17 08:15 (Glucagon Inj) 1 mg UNSCH PRN OTHER 03/15/17 08:15 Patient Own Medication PT OWN MED: Ursod... BID PO 03/15/17 13:00 Vital Signs / I&O Vital Signs Date Time Temp Pulse Resp B/P Pulse Ox O2 Delivery O2 Flow Rate FiO2 03/15/17 12:00 81 03/15/17 12:00 98.0 81 18 146/56 99 03/15/17 10:00 86 03/15/17 08:00 98.3 91 20 108/56 99 03/15/17 08:00 63 03/15/17 06:00 63 03/15/17 04:00 99.0 70 24 133/63 98 03/15/17 04:00 70 03/15/17 02:00 82 03/15/17 00:00 98.3 59 20 148/65 100 03/15/17 00:00 59 03/14/17 22:00 57 03/14/17 20:00 98.1 61 23 115/58 100 03/14/17 20:00 61 03/14/17 19:02 100 21 03/14/17 18:00 54 03/14/17 16:00 53 03/14/17 16:00 98.3 53 26 104/50 100 I/O 03/14/17 03/14/17 03/14/17 03/15/17 03/15/17 03/15/17 07:00 15:00 23:00 07:00 15:00 23:00 Intake Total 616 ml 1266 ml 648 ml 489 ml Output Total 750 ml 350 ml 450 ml Balance 616 ml 516 ml 298 ml 39 ml Intake Oral 120 ml 240 ml 120 ml 120 ml IV Total 496 ml 1026 ml 528 ml 369 ml Output Urine Total 750 ml 350 ml 450 ml # Voids 3 4 # Bowel Movements 0 0 0 0 Physical Exam GENERAL: In NAD SKIN: Warm and dry. HEAD: Normocephalic. EYES: No scleral icterus. No injection or drainage. NECK: Supple, trachea midline. No JVD or lymphadenopathy. CARDIOVASCULAR: Regular rate and rhythm, syst murmur, no gallops or rubs. RESPIRATORY: Breath sounds equal bilaterally. No accessory muscle use. GASTROINTESTINAL: Abdomen soft, non-tender, nondistended. MUSCULOSKELETAL: No cyanosis, or edema. Laboratory Laboratory Tests Test 03/14/17 03/15/17 21:30 05:50 White Blood Count 15.1 TH/MM3 14.0 TH/MM3 Red Blood Count 3.80 MIL/MM3 4.12 MIL/MM3 Hemoglobin 10.6 GM/DL 11.5 GM/DL Hematocrit 32.5 % 35.0 % Mean Corpuscular Volume 85.3 FL 85.0 FL Mean Corpuscular Hemoglobin 27.9 PG 27.9 PG Mean Corpuscular Hemoglobin 32.7 % 32.8 % Concent Red Cell Distribution Width 15.4 % 15.5 % Platelet Count 127 TH/MM3 130 TH/MM3 Mean Platelet Volume 8.1 FL 7.7 FL Prothrombin Time 13.4 SEC Prothromb Time International 1.2 RATIO Ratio Activated Partial 26.8 SEC 44.1 SEC Thromboplast Time Neutrophils (%) (Auto) 91.1 % Lymphocytes (%) (Auto) 5.6 % Monocytes (%) (Auto) 3.0 % Eosinophils (%) (Auto) 0.1 % Basophils (%) (Auto) 0.2 % Neutrophils # (Auto) 12.8 TH/MM3 Lymphocytes # (Auto) 0.8 TH/MM3 Monocytes # (Auto) 0.4 TH/MM3 Eosinophils # (Auto) 0.0 TH/MM3 Basophils # (Auto) 0.0 TH/MM3 CBC Comment DIFF FINAL Differential Comment Sodium Level 139 MEQ/L Potassium Level 3.9 MEQ/L Chloride Level 108 MEQ/L Carbon Dioxide Level 22.9 MEQ/L Anion Gap 8 MEQ/L Blood Urea Nitrogen 17 MG/DL Creatinine 0.56 MG/DL Estimat Glomerular Filtration 106 ML/MIN Rate Random Glucose 64 MG/DL Calcium Level 8.1 MG/DL Phosphorus Level 1.4 MG/DL Magnesium Level 2.4 MG/DL Total Bilirubin 1.5 MG/DL Aspartate Amino Transf 42 U/L (AST/SGOT) Alanine Aminotransferase 29 U/L (ALT/SGPT) Alkaline Phosphatase 188 U/L Total Creatine Kinase 116 U/L Total Protein 6.1 GM/DL Albumin 2.2 GM/DL Imaging Last Impressions Chest X-Ray 03/15/17 0600 Signed Impressions: Service Date/Time: Wednesday, March 15, 2017 04:56 - CONCLUSION: Worsening consolidation and effusion at the left lung base. Reynaldo Lazar MD Neck CTA 03/12/17 0000 Signed Impressions: Service Date/Time: Sunday, March 12, 2017 20:22 - CONCLUSION: Slight atherosclerosis of both carotid bifurcations without narrowing. Dominant left vertebral artery. Reynaldo Lazar MD Head CTA 03/12/17 0000 Signed Impressions: Service Date/Time: Sunday, March 12, 2017 20:22 - CONCLUSION: Normal intracranial arteries. Reynaldo Lazar MD Head CT 03/12/17 0000 Signed Impressions: Service Date/Time: Sunday, March 12, 2017 19:02 - CONCLUSION: Negative noncontrast head CT. Reynaldo Lazar MD Assessment and Plan Problem List: (1) Atrial flutter with rapid ventricular response (2) Elevated troponin (3) S/P AVR (4) Altered mental status (5) Encephalopathy (6) Diabetes (7) Hyperlipidemia (8) NATALIA (acute kidney injury) (9) Streptococcal bacteremia Assessment and Plan Continue antibiotics for strep bacteremia with AV prosthesis in place as per ID. DORIE on Fri w Dr. Monsalve. Back in SR, continue anticoagulation. No evidence of ACS. Mental status improved. Increase activity. Problem Qualifiers (1) Altered mental status: Kendall King MD Mar 15, 2017 14:47
[2017-03-15 15:28] LABS: APTT (PATIENT) 81.1 SEC (24.3-30.1)
[2017-03-15] MEDS: ATORVASTATIN 10 MG TAB PO SCH (21:56)
[2017-03-15] MEDS: ACETAMINOPHEN/HYDROcodone 325 MG/5 MG TAB PO PRN (21:57)
[2017-03-15 22:45] LABS: APTT (PATIENT) 70.7 SEC (24.3-30.1)
[2017-03-16] VITALS (12 sets, daily range): BP systolic 106–150; BP diastolic 55–68; PULSE 49–90; RESP 18–25; TEMP 97.5–98.3; O2SAT 96–100
[2017-03-16] MEDS: HEPARIN-D5W INJ 250 ML IV SCH (00:10)
[2017-03-16] MEDS: CHLORHEXIDINE GLUCONATE 2 % 1 PACK (2 CLOTHS) TOP SCH (04:00)
[2017-03-16 05:24] LABS: APTT (PATIENT) 68.8 SEC (24.3-30.1)
[2017-03-16] MEDS: INSULIN ASPART SUPPLEMENTAL SCALE SQ SCH ×4 (06:30→22:28)
[2017-03-16] MEDS: LEVOTHYROXINE SODIUM 75 MCG TAB PO SCH (06:30)
--- NOTE | 2017-03-16 08:57 | HHI.GIFU ---
GI Follow-up Note Consult Follow-up Subjective: Patient laying in bed comfortably, no new complaints except for a mild cough. Objective: PHYSICAL EXAMINATION: Vitals signs stable No fever HEENT:EOMI CHEST: Coarse breath sounds at left base. CARDIAC: Regular rate and rhythm with a III/ murmur ABDOMEN: Soft, nondistended, nontender; no hepatosplenomegaly; bowel sounds are present EXTREMITIES: No edema. REFRIGERATING ENGINEER HEAD: alert and oriented times three. Available Data (labs, X- Rays, Procedues) : AFP tumor marker is 1.6. CXR: worsening infiltrate at left base on yesterday's film. ASSESSMENT/PLAN:Primary biliary cholangitis with portal hypertension and small varices documented previously on EGD and MRI. Will perform EGD tomorrow before the DORIE. I reviewed the risks again with her: medication reaction, bleeding, perforation. It was a pleasure seeing Julia Jerome. Entered by: Jey Argueta MD Mar 16, 2017 08:57
[2017-03-16] MEDS: DOCUSATE SODIUM 100 MG CAP PO SCH ×2 (09:00→21:00)
[2017-03-16] MEDS: SENNOSIDES 8.6 MG TAB PO SCH ×2 (09:00→21:00)
[2017-03-16] MEDS: INSULIN DETEMIR 100 UNITS/ML VIAL SQ SCH ×2 (09:00→21:00)
[2017-03-16] MEDS: MULTIVITAMIN TAB PO SCH (09:22)
[2017-03-16] MEDS: PANTOPRAZOLE SODIUM 40 MG VIAL IV SCH (09:22)
[2017-03-16] MEDS: SODIUM CHLORIDE 0.9% FLUSH 10 ML FLUSH IVF SCH (09:23)
[2017-03-16] MEDS: SODIUM CHLORIDE 0.9% FLUSH 10 ML FLUSH IV FLUSH SCH ×2 (09:23→22:26)
[2017-03-16] MEDS: URSODIOL PO SCH ×2 (09:24→21:00)
[2017-03-16] MEDS: ACETAMINOPHEN/HYDROcodone 325 MG/5 MG TAB PO PRN (11:17)
[2017-03-16] MEDS ORDERED: PHARMACY ORDERED LAB ONE (11:45)
[2017-03-16] MEDS: VANCOMYCIN INJ 1,500 MG in SODIUM CHLORID 0.9% 500 ML INJ 500 ML IV SCH (12:03)
[2017-03-16] MEDS: cefTRIAXone INJ 2,000 MG in SODIUM CHLORIDE 0.9% INJ 100 ML IV SCH (14:09)
--- NOTE | 2017-03-16 16:36 | PD.CARD.PN ---
Subjective Subjective Remarks No CP or SOB, feels better Objective Medications Current Medications Medications (Trade) Dose Ordered Sig/Tunde Route Start Time Stop Time Status Last Admin (NS Flush) 2 ml UNSCH PRN IV FLUSH 03/12/17 01:00 03/14/17 09:14 (Narcan Inj) 0.4 mg UNSCH PRN IV 03/12/17 01:00 Atorvastatin Calcium 10 mg 10 mg HS PO 03/12/17 21:00 03/15/17 21:56 (DOPamine INJ PREMIX) 500 ml @ 0 mls/hr TITRATE IV 03/13/17 00:30 03/14/17 09:13 (Brethine Inj) 1 mg UNSCH PRN SQ 03/13/17 04:45 (Synthroid) 75 mcg DAILY@06 PO 03/14/17 06:00 03/16/17 06:30 (NS Flush) DAILY IVF 03/13/17 09:00 03/16/17 09:23 (NS Flush) UNSCH PRN IVF 03/13/17 08:00 03/14/17 09:13 (NS Flush) 2 ml UNSCH PRN IV FLUSH 03/13/17 08:30 03/14/17 09:13 (NS Flush) 2 ml BID IV FLUSH 03/13/17 09:00 03/16/17 09:23 (Tylenol) 650 mg Q6H PRN PO 03/13/17 08:30 03/14/17 21:41 ([place] 5-325 Mg) 1 tab Q4H PRN PO 03/13/17 08:30 03/16/17 11:17 (Protonix Inj) 40 mg DAILY IV 03/13/17 09:00 03/16/17 09:22 (Zofran Inj) 4 mg Q6H PRN IV 03/13/17 08:30 (Colace) 100 mg BID PO 03/13/17 09:00 03/15/17 09:42 Miscellaneous Information 1 Q361D XX 03/13/17 08:30 03/14/17 09:14 (Chlorhexidine 2% Cloth) 3 pack Taper DAILY@04 TOP 03/14/17 04:00 03/10/18 03:59 03/15/17 04:00 (Chlorhexidine 2% Cloth) 3 pack UNSCH PRN TOP 03/13/17 08:30 Multivitamins 1 tab 1 tab DAILY PO 03/13/17 11:30 03/16/17 09:22 (Vancomycin Consult Pharmacy) 0 ml @ 0 mls/hr UNSCH OTHER 03/13/17 09:30 Insulin Detemir 10 units 10 units BID SQ 03/13/17 21:00 03/16/17 09:00 (Rocephin Inj/NS Inj) 100 ml @ 200 mls/hr Q24H IV 03/14/17 13:00 03/16/17 14:09 (Tums Chew) 500 mg Q2H PRN CHEW 03/14/17 17:00 03/14/17 21:40 Sennosides 17.2 mg 17.2 mg Q12H PO 03/14/17 21:00 (Heparin-D5W Inj) 250 ml @ 0 mls/hr TITRATE IV 03/14/17 20:45 03/16/17 00:10 (D50w (Vial) Inj) 25 ml UNSCH PRN IV PUSH 03/15/17 08:15 (Glucagon Inj) 1 mg UNSCH PRN OTHER 03/15/17 08:15 Patient Own Medication PT OWN MED: Ursod... BID PO 03/15/17 13:00 03/16/17 09:24 (Vancomycin Inj/ NS 250 ml Inj) 262.5 ml @ 250 mls/hr Q18H IV 03/17/17 06:00 Miscellaneous Information SPECIFIC LAB TO BE DRAWN:VANCOMY... ONCE ONCE .XX 03/18/17 17:45 03/18/17 17:46 Vital Signs / I&O Vital Signs Date Time Temp Pulse Resp B/P Pulse Ox O2 Delivery O2 Flow Rate FiO2 03/16/17 14:00 60 03/16/17 12:00 97.6 69 18 121/63 100 03/16/17 12:00 69 03/16/17 10:00 63 03/16/17 08:00 90 03/16/17 08:00 97.8 61 18 150/67 100 03/16/17 06:00 54 03/16/17 04:00 98.1 70 25 131/61 96 03/16/17 04:00 70 03/16/17 02:00 53 03/16/17 00:00 57 03/16/17 00:00 97.9 57 21 106/55 97 03/15/17 22:00 62 03/15/17 20:00 65 03/15/17 20:00 97.9 65 21 120/59 97 03/15/17 18:00 72 I/O 03/15/17 03/15/17 03/15/17 03/16/17 03/16/17 03/16/17 07:00 15:00 23:00 07:00 15:00 23:00 Intake Total 489 ml 936 ml 732 ml 75 ml 1033 ml Output Total 450 ml 500 ml 150 ml Balance 39 ml 436 ml 732 ml -75 ml 1033 ml Intake Oral 120 ml 480 ml 240 ml 0 ml 400 ml IV Total 369 ml 456 ml 492 ml 75 ml 633 ml Output Urine Total 450 ml 500 ml 150 ml # Voids 1 1 # Bowel Movements 0 1 2 0 Physical Exam GENERAL: In NAD SKIN: Warm and dry. HEAD: Normocephalic. EYES: No scleral icterus. No injection or drainage. NECK: Supple, trachea midline. No JVD or lymphadenopathy. CARDIOVASCULAR: Regular rate and rhythm, syst murmur, no gallops or rubs. RESPIRATORY: Breath sounds equal bilaterally. No accessory muscle use. GASTROINTESTINAL: Abdomen soft, non-tender, nondistended. MUSCULOSKELETAL: No cyanosis, or edema. Laboratory Laboratory Tests Test 03/15/17 03/16/17 03/16/17 21:20 03:50 12:00 Activated Partial 70.7 SEC 68.8 SEC Thromboplast Time Tumor Marker Alpha Fetoprotein 1.6 NG/ML Phosphorus Level 1.6 MG/DL Vancomycin Level Trough 9.9 MCG/ML Imaging Last Impressions Chest X-Ray 03/15/17 0600 Signed Impressions: Service Date/Time: Wednesday, March 15, 2017 04:56 - CONCLUSION: Worsening consolidation and effusion at the left lung base. Reynaldo Lazar MD Neck CTA 03/12/17 0000 Signed Impressions: Service Date/Time: Sunday, March 12, 2017 20:22 - CONCLUSION: Slight atherosclerosis of both carotid bifurcations without narrowing. Dominant left vertebral artery. Reynaldo Lazar MD Head CTA 03/12/17 0000 Signed Impressions: Service Date/Time: Sunday, March 12, 2017 20:22 - CONCLUSION: Normal intracranial arteries. Reynaldo Lazar MD Head CT 03/12/17 0000 Signed Impressions: Service Date/Time: Sunday, March 12, 2017 19:02 - CONCLUSION: Negative noncontrast head CT. Reynaldo Lazar MD Assessment and Plan Problem List: (1) Atrial flutter with rapid ventricular response (2) Elevated troponin (3) S/P AVR (4) Altered mental status (5) Encephalopathy (6) Diabetes (7) Hyperlipidemia (8) NATALIA (acute kidney injury) (9) Streptococcal bacteremia Assessment and Plan Continue antibiotics for strep bacteremia with AV prosthesis in place as per ID. DORIE tomorrow w Dr. Monsalve. Back in SR w PACs, continue anticoagulation. No evidence of ACS. Mental status improved, she feels much better. Increase activity. D/w pt and . Problem Qualifiers (1) Altered mental status: Kendall King MD Mar 16, 2017 16:36
--- NOTE | 2017-03-16 18:45 | HHI.CCPN ---
Subjective Remarks/Hospital Course Ms. Jerome is a pleasant 76 year old female with a history of severe aortic stenosis s/p AVR (bovine valve), primary biliary cirrhosis, DM who presented to the ED on 03/11/2017 due to generalized weakness. She has been very tired and sleeping most of the hours. 03/13: Currently afebrile. Noted lumbar puncture performed overnight. Glucose possibly inappropriately low otherwise unremarkable. Some red blood cells/ leukocytosis. Currently on aztreonam, gentamicin and Flagyl continued by my colleague. Infectious disease consult and will defer to their recommendations. Awake and alert and oriented 3. On low-dose dopamine at 4 g per kilogram per minute bradycardia denies chest pain, shortness of breath. 03/14: Afebrile. Remains on dopamine drip at 6 mcg. On attempt to wean remains bradycardic. Appears to be in sinus bradycardia at the present time. Noted elevated white blood cell count today. Rocephin added by infectious disease. Echocardiogram revealed no signs of endocarditis. Plan for DORIE on Friday. 03/15 Blood cultures 03/11, , all persistently positive and those from 03/14 are pending. DORIE planned. Nauseated, vomited x1 this morning. Poor appetite. Last BM was 3 days ago. On dopamine 5 mcg/kg/min...weaning off. Subjective: 03/16blood culture from 03/14 as negative to date. EGD plan for a.m. with DORIE to follow. Off dopamine. Patient states "I am finally starting to feel better" Objective Vital Signs Date Time Temp Pulse Resp B/P Pulse Ox O2 Delivery O2 Flow Rate FiO2 03/16/17 18:00 65 03/16/17 16:00 97.5 22 126/58 99 03/14/17 19:02 21 03/13/17 19:10 Nasal Cannula 2.00 Intake and Output 03/15/17 03/15/17 03/16/17 08:00 16:00 00:00 Intake Total 489 ml 936 ml 732 ml Output Total 450 ml 500 ml Balance 39 ml 436 ml 732 ml Result Diagram: 03/15/17 0550 03/15/17 0550 Imaging Last Impressions Chest X-Ray 03/13/17 8768 Signed Impressions: Service Date/Time: February 07:59 - CONCLUSION: Right IJ line distal tip at the cavoatrial junction. No pneumothorax is visualized. Reynaldo Higgins MD Neck CTA 03/12/17 0000 Signed Impressions: Service Date/Time: Sunday, March 12, 2017 20:22 - CONCLUSION: Slight atherosclerosis of both carotid bifurcations without narrowing. Dominant left vertebral artery. Reynaldo Lazar MD Head CTA 03/12/17 0000 Signed Impressions: Service Date/Time: Sunday, March 12, 2017 20:22 - CONCLUSION: Normal intracranial arteries. Reynaldo Lazar MD Head CT 03/12/17 0000 Signed Impressions: Service Date/Time: Sunday, March 12, 2017 19:02 - CONCLUSION: Negative noncontrast head CT. Reynaldo Lazar MD Objective Remarks Drips: Heparin GENERAL: 76-year-old female, sitting up in bed, alert pleasant and talkative. SKIN: Warm and dry. No rash HEAD: Atraumatic. Normocephalic. EYES: Pupils equal and round about 2-3 mm bilaterally and reactive. No scleral icterus. No injection or drainage. ENT: No nasal bleeding or discharge. Mucous membranes pink and moist. NECK: Trachea midline. No JVD. Right IJ dressing clean dry and intact CARDIOVASCULAR: Bradycardia, NL S1S2, 3/6 systolic murmur RSB. No JVD. RESPIRATORY: No accessory muscle use. CTAB. Breath sounds equal bilaterally. GASTROINTESTINAL: Abdomen soft, non-tender, nondistended. Hypoactive bowel sounds are appreciated MUSCULOSKELETAL: Extremities without difficulty and peripheral edema. No obvious deformities. NEUROLOGICAL: Awake and alert, some repetitive conversation. No obvious cranial nerve deficits. Motor grossly within normal limits. Five out of 5 muscle strength in the arms and legs. Normal speech. Date of Insertion: Mar 13, 2017 Line: Central Venous Catheter Side: Right Location: Internal, Jugular A/P Assessment and Plan Neuro/Psych: Acute encephalopathy, improved CT head/ 03/12 revealed no acute intracranial findings. CTA head 03/12 revealed no acute signs of bleeding/aneurysm CTA neck 03/12 revealed mild plaques bilateral bulb/internal carotid otherwise unremarkable. Dr. Velasco Discussed with Dr. Vidal /neurology, recommended anticoagulation; on heparin drip. CV: Atrial fib Now Sinus bradycardia History of bioprosthetic aortic valve replacement 2012 [id number] at [facility] Elevated troponin Hyperlipidemia Off dopamine since 03/15. Holding home medications losartan 100 mg by mouth daily in light of hypotension. Continue Lipitor 10 mg by mouth daily for dyslipidemia. Echocardiogram revealed EF 65-70%. No regional wall motion abnormality. Mild MR/TR. Specifically all valves showed no signs of endocarditis Plan for DORIE 03/17 Troponin 0.18 Continue Lipitor 10 mg by mouth daily at bedtime [id number] 5 - On heparin drip Hold heparin drip at [address] Monsalve/cardiology plans DORIE on Friday Resp: Nasal cannula to maintain saturations greater than equal to 92% Incentive spirometry while awake On ProAir inhaler every 6 hours at home for shortness of breath. As needed albuterol nebs every 2 hours GI: Stage IV biliary cirrhosis Gastro esophageal reflux disease Hiatal hernia Hypo-albuminemia On Prilosec 20 mg by mouth daily home for gastroesophageal reflux disease. Substituting Protonix here 40 mg IV On spironolactone 25 mg daily and Lasix 20 mg 2 times a week for cirrhosis. Was on hold due to hypotension, resume when clinically indicated, likely start by resuming lasix tomorrow. Continue rosaura 500 mg Twice a day/home medication for her biliary cirrhosis. She will bring this medication home as hospital does not have appropriate dosage Advanced heart healthy diet Dr. Garcia plans to do EGD at 10 am on 03/17 prior to DORIE. NPO at midnight. FEN/RENAL: Acute kidney injury Hyponatremia - resolved Voiding. Monitoring output. Fluids on KVO. ICU electrolyte replacement protocol Endo: Diabetes mellitus Hypothyroidism Holding Tresiba/home medication 10 units before meals/at bedtime -Detemir 10 units subcutaneous twice a day. medium dose sliding scale ac/hs Hold detemir 10 units subcut in am because will be npo for EGD Decrease Levoxyl from 100 -75 mcg daily. TSH was low at 0.2. T4 was elevated at 1.6. Heme: Anemia History of basal carcinoma/melanoma? of the nares Heparin drip Monitor CBC. Thrombocytopenia has resolved ID: Strep bacteremia TTE negative for vegetations. Bioprosthetic aortic valve. DORIE plan for Saturday 03/17. Continue Rocephin started 03/14. Vancomycin 03/13. Infectious disease Dr. Harrison following Pertinent cultures 03/14 blood culture - NGTD 03/13 - blood cultures 1 - strep 03/12 - UA -mixed hemanth 03/12 - blood culture 1 -strep 03/12 - CSF - Gram stain negative. 03/11 - blood cultures 2 -strep bacteremia MSK: PT evaluate and treat Access - Right IJ CVL placed 03/13/[address] PIV and d/c CVL after procedures tomorrow. Prophylaxis - GI -Protonix - DVT - SCD. Heparin drip (hold as per above) Out of bed. PT/OT. Pt and family updated at bedside and questions answered. Level 3 followup Quiana Roth MD Mar 16, 2017 18:45
[2017-03-16] MEDS ORDERED: POTASSIUM CHLORIDE 25 MEQ EFFERVESCENT TAB PO PRN (19:15)
[2017-03-16] MEDS ORDERED: MAGNESIUM SULFATE INJ 4 GM in SODIUM CHLORIDE 0.9% INJ 92 ML IV PRN (19:15)
[2017-03-16] MEDS ORDERED: POTASSIUM CHLOR 20 MEQ PREMIX 100 ML IV PRN ×2 (19:15)
[2017-03-16] MEDS ORDERED: POTASSIUM PHOSPHATE MONOBASIC 500 MG TAB PO/TUBE PRN (19:15)
[2017-03-16] MEDS ORDERED: POTASSIUM PHOSPHATE MONOBASIC 500 MG TAB PO PRN (19:15)
[2017-03-16] MEDS ORDERED: POTASSIUM CHLOR 40 MEQ PREMIX 100 ML IV PRN ×2 (19:15)
[2017-03-16] MEDS ORDERED: MAGNESIUM SULFATE INJ 2 GM in SODIUM CHLORIDE 0.9% INJ 96 ML IV PRN (19:15)
[2017-03-16] MEDS ORDERED: SODIUM PHOSPHATE INJ 30 MMOL in SODIUM CHLOR 0.9% 250 ML INJ 240 ML IV PRN (19:15)
[2017-03-16] MEDS ORDERED: MAGNESIUM OXIDE 400 MG TAB PO PRN (19:15)
[2017-03-16] MEDS: ATORVASTATIN 10 MG TAB PO SCH (22:27)
[2017-03-17] VITALS (13 sets, daily range): BP systolic 105–143; BP diastolic 54–68; PULSE 52–103; RESP 24–26; TEMP 98.3–98.8; O2SAT 96–98
[2017-03-17] MEDS: CHLORHEXIDINE GLUCONATE 2 % 1 PACK (2 CLOTHS) TOP SCH ×2 (04:00→21:10)
[2017-03-17] MEDS: INSULIN ASPART SUPPLEMENTAL SCALE SQ SCH ×4 (05:46→21:00)
[2017-03-17] MEDS: LEVOTHYROXINE SODIUM 75 MCG TAB PO SCH (05:46)
[2017-03-17] MEDS ORDERED: VANCOMYCIN INJ 1,250 MG in SODIUM CHLOR 0.9% 250 ML INJ 250 ML IV SCH (06:00)
[2017-03-17 07:42] LABS: HEMATOCRIT 30.2 % (35.0-46.0); MEAN CELL VOLUME 85.1 FL (80.0-100.0); MEAN CORPUSCULAR HEMOGLOBIN 28.4 PG (27.0-34.0); MEAN CORPUSCULAR HGB CONC 33.4 % (32.0-36.0); PLATELET COUNT 108 TH/MM3 (150-450); RED BLOOD COUNT 3.55 MIL/MM3 (4.00-5.30); RED CELL DISTRIBUTION WIDTH 15.5 % (11.6-17.2); REVIEW FLAG FINAL; WHITE BLOOD COUNT 8.9 TH/MM3 (4.0-11.0)
[2017-03-17 07:48] LABS: APTT (PATIENT) 46.6 SEC (24.3-30.1)
[2017-03-17 08:20] LABS: BICARBONATE 21.6 MEQ/L (21.0-32.0); MAGNESIUM 2.3 MG/DL (1.5-2.5)
[2017-03-17] MEDS: PANTOPRAZOLE SODIUM 40 MG VIAL IV SCH (08:28)
[2017-03-17] MEDS: SODIUM CHLORIDE 0.9% FLUSH 10 ML FLUSH IVF SCH (08:28)
[2017-03-17] MEDS: SODIUM CHLORIDE 0.9% FLUSH 10 ML FLUSH IV FLUSH SCH ×2 (08:28→21:08)
[2017-03-17] MEDS: URSODIOL PO SCH ×2 (08:28→21:00)
[2017-03-17] MEDS: DOCUSATE SODIUM 100 MG CAP PO SCH ×2 (08:28→21:00)
[2017-03-17] MEDS: MULTIVITAMIN TAB PO SCH (08:29)
[2017-03-17] MEDS: SENNOSIDES 8.6 MG TAB PO SCH ×2 (08:29→21:00)
[2017-03-17] MEDS ORDERED: PROPOFOL 200 MG/20 ML AMP IV ONE (10:13)
[2017-03-17] MEDS: cefTRIAXone INJ 2,000 MG in SODIUM CHLORIDE 0.9% INJ 100 ML IV SCH (12:31)
[2017-03-17] MEDS ORDERED: ATROPINE SULFATE 1 MG/10 ML SYRINGE ONE (13:15)
--- NOTE | 2017-03-17 14:45 | HHI.IDPN ---
Note Infectious Disease Note Patient feels well. Awake, a little drowsy from anesthesia. No nausea. Afebrile. 03/14 - Blood culture has no growth. 03/13 - Blood cultures has strep viridans. 03/12 - Blood cultures has strep viridans. 03/11 - Blood cultures has strep viridans. Presented to emergency department on 03/11 with generalized weakness. The patient previously presented to [facility] one week ago after three days of generalized weakness and diarrhea. She was evaluated and the white blood cell count was normal and she was afebrile. PAST MEDICAL HISTORY 1. Biliary cirrhosis 2. Diabetes mellitus 3. Appendectomy 4. Hysterectomy. 5. Aortic valve replacement in 2012 with Bovine valve. 6. Gastroesophageal reflux disease 7. Bilateral cataract surgery, one was done February 2017 and the first was January 2017. ALLERGIES AMPICILLIN LEAD TO SHORTNESS OF BREATH. PATIENT ABLE TO TOLERATE AMOXICILLIN. LEVAQUIN SULFA MACROBID IODINE CONTRAST MEDIA. HEART DISEASE. ANTIBIOTICS: Ceftriaxone. SOCIAL HISTORY No tobacco use. Social alcohol use. No illicit drugs. OBJECTIVE: Vital Signs Date Time Temp Pulse Resp B/P Pulse Ox O2 Delivery O2 Flow Rate FiO2 03/17/17 14:00 54 03/17/17 12:00 98.8 55 24 112/55 98 03/17/17 12:00 55 03/17/17 10:50 62 18 98/49 99 Room Air 03/17/17 10:40 60 18 114/57 99 Nasal Cannula 2 03/17/17 10:23 98.3 75 18 114/55 99 Nasal Cannula 2 03/17/17 10:21 98 03/17/17 08:00 52 03/17/17 08:00 98.5 52 26 117/58 97 03/17/17 06:00 58 03/17/17 04:00 98.4 55 26 105/54 97 03/17/17 04:00 55 03/17/17 02:00 54 03/17/17 00:00 62 03/17/17 00:00 98.3 62 25 133/68 98 03/16/17 22:00 49 03/16/17 20:00 64 03/16/17 20:00 98.3 64 21 133/68 99 03/16/17 18:00 65 03/16/17 16:00 97.5 61 22 126/58 99 03/16/17 16:00 56 03/16/17 03/16/17 03/17/17 15:00 23:00 07:00 Intake Total 1033 ml 319 ml 267 ml Output Total 125 ml 10 ml Balance 1033 ml 194 ml 257 ml Intake Oral 400 ml 120 ml 0 ml IV Total 633 ml 199 ml 267 ml Output Urine Total 125 ml 10 ml # Voids 1 # Bowel Movements 0 1 Laboratory Tests Test 03/17/17 05:40 White Blood Count 8.9 TH/MM3 Red Blood Count 3.55 MIL/MM3 Hemoglobin 10.1 GM/DL Hematocrit 30.2 % Mean Corpuscular Volume 85.1 FL Mean Corpuscular Hemoglobin 28.4 PG Mean Corpuscular Hemoglobin 33.4 % Concent Red Cell Distribution Width 15.5 % Platelet Count 108 TH/MM3 Mean Platelet Volume 8.3 FL Laboratory Tests Test 03/15/17 03/16/17 03/17/17 21:20 03:50 05:40 Tumor Marker Alpha Fetoprotein 1.6 NG/ML Phosphorus Level 1.6 MG/DL 1.8 MG/DL Sodium Level 136 MEQ/L Potassium Level 4.0 MEQ/L Chloride Level 105 MEQ/L Carbon Dioxide Level 21.6 MEQ/L Anion Gap 9 MEQ/L Blood Urea Nitrogen 20 MG/DL Creatinine 1.34 MG/DL Estimat Glomerular Filtration 39 ML/MIN Rate Random Glucose 77 MG/DL Calcium Level 7.5 MG/DL Magnesium Level 2.3 MG/DL Microbiology Date/Time Procedure Status Source Growth 03/14/17 14:56 Aerobic Blood Culture - Preliminary Resulted Blood Peripheral NO GROWTH IN 3 DAYS 03/14/17 14:56 Anaerobic Blood Culture - Preliminary Resulted Blood Peripheral NO GROWTH IN 3 DAYS PHYSICAL EXAMINATION GENERAL: Awake, drowsy. Nasal canula. HEENT: No icterus. No conjunctival erythema. Oropharynx no thrush. No lesions. NECK: Supple without adenopathy or swelling. LUNGS: Clear breath sounds. HEART: 3/6 blowing systolic ejection murmur at the left sternal border and also at the upper right sternal border. ABDOMEN: Bowel sounds present, soft, no tenderness. EXTREMITIES: No clubbing or cyanosis. Ecchymosis of the hands. No clubbing, cyanosis or edema. No peripheral embolic lesions. NEUROLOGIC: Nonfocal. SKIN: No diffuse rash. PSYCHIATRIC: The patient is calm and cooperative. IMPRESSION 1. Bacteremia due to Viridans Strep. 2. Sepsis. 3. Altered mental status secondary to Sepsis. Improved. 4. Leukocytosis. Improved. 5. Acute kidney disease. Worse. Probably related to aminoglycoside. RECOMMENDATIONS 1. Stop Vancomycin. 2. Continue Ceftriaxone. 3. DORIE as planned by Cardiology. 4. Monitor renal function. DORIE result and renal function to determine further ID disposition. Edwin Harrison MD March 17, 2017 14:45
--- NOTE | 2017-03-17 17:38 | PD.CARD.PN ---
Subjective Subjective Remarks Strep sepsis most likely endocarditis, discussed in detail with ID Objective Medications Administered Medications Medications (Trade) Dose Ordered Sig/Tunde Route PRN Reason Start Time Stop Time Status Last Admin Dose Admin Sodium Chloride (NS Flush) 2 ml UNSCH PRN IV FLUSH FLUSH AFTER USING IV ACCESS 03/12/17 01:00 03/14/17 09:14 Atorvastatin Calcium (Lipitor) 10 mg HS PO 03/12/17 21:00 03/16/17 22:27 Levothyroxine Sodium (Synthroid) 75 mcg DAILY@06 PO 03/14/17 06:00 03/17/17 05:46 Sodium Chloride (NS Flush) DAILY IVF 03/13/17 09:00 03/16/17 09:23 Sodium Chloride (NS Flush) UNSCH PRN IVF SEE PROTOCOL 03/13/17 08:00 03/14/17 09:13 Sodium Chloride (NS Flush) 2 ml UNSCH PRN IV FLUSH FLUSH AFTER USING IV ACCESS 03/13/17 08:30 03/14/17 09:13 Sodium Chloride (NS Flush) 2 ml BID IV FLUSH 03/13/17 09:00 03/17/17 08:28 Acetaminophen (Tylenol) 650 mg Q6H PRN PO PAIN 1-2 AND/OR FEVER >101F 03/13/17 08:30 03/14/17 21:41 Acetaminophen/ Hydrocodone Bitart ([place] 5-325 Mg) 1 tab Q4H PRN PO PAIN SCALE 3 TO 5 03/13/17 08:30 03/16/17 11:17 Pantoprazole Sodium (Protonix Inj) 40 mg DAILY IV 03/13/17 09:00 03/17/17 08:28 Docusate Sodium (Colace) 100 mg BID PO 03/13/17 09:00 03/15/17 09:42 Miscellaneous Information 1 Q361D XX 03/13/17 08:30 03/14/17 09:14 Chlorhexidine Gluconate (Chlorhexidine 2% Cloth) 3 pack Taper DAILY@04 TOP 03/14/17 04:00 03/10/18 03:59 03/15/17 04:00 Multivitamins (Theragran) 1 tab DAILY PO 03/13/17 11:30 03/16/17 09:22 Insulin Detemir 10 units 10 units BID SQ 03/13/17 21:00 Hold 03/16/17 21:00 Ceftriaxone Sodium/Sodium Chloride (Rocephin Inj/NS Inj) 100 ml @ 200 mls/hr Q24H IV 03/14/17 13:00 03/17/17 12:31 Calcium Carbonate 500 mg 500 mg Q2H PRN CHEW heartburn 03/14/17 17:00 03/14/17 21:40 Heparin Sodium/ Dextrose (Heparin-D5W Inj) 250 ml @ 0 mls/hr TITRATE IV 03/14/17 20:45 Hold 03/16/17 00:10 Dextrose (D50w (Vial) Inj) 25 ml UNSCH PRN IV PUSH HYPOGLYCEMIA-SEE COMMENTS 03/15/17 08:15 03/17/17 11:35 Patient Own Medication PT OWN MED: Ursod... BID PO 03/15/17 13:00 03/16/17 21:00 Vital Signs / I&O Vital Signs Date Time Temp Pulse Resp B/P Pulse Ox O2 Delivery O2 Flow Rate FiO2 03/17/17 16:00 66 03/17/17 16:00 98.7 66 25 143/66 97 03/17/17 14:00 54 03/17/17 12:00 98.8 55 24 112/55 98 03/17/17 12:00 55 03/17/17 10:50 62 18 98/49 99 Room Air 03/17/17 10:40 60 18 114/57 99 Nasal Cannula 2 03/17/17 10:23 98.3 75 18 114/55 99 Nasal Cannula 2 03/17/17 10:21 98 03/17/17 08:00 52 03/17/17 08:00 98.5 52 26 117/58 97 03/17/17 06:00 58 03/17/17 04:00 98.4 55 26 105/54 97 03/17/17 04:00 55 03/17/17 02:00 54 03/17/17 00:00 62 03/17/17 00:00 98.3 62 25 133/68 98 03/16/17 22:00 49 03/16/17 20:00 64 03/16/17 20:00 98.3 64 21 133/68 99 03/16/17 18:00 65 I/O 4/30/17 4/3003/16/17 03/17/17 03/17/17 03/17/17 07:00 15:00 23:00 07:00 15:00 23:00 Intake Total 75 ml 1033 ml 319 ml 267 ml 250 ml Output Total 150 ml 125 ml 10 ml 15 ml Balance -75 ml 1033 ml 194 ml 257 ml 235 ml Intake Oral 0 ml 400 ml 120 ml 0 ml 0 ml IV Total 75 ml 633 ml 199 ml 267 ml 100 ml Other 150 ml Output Urine Total 150 ml 125 ml 10 ml 15 ml Estimated Blood Loss 0 ml # Voids 1 # Bowel Movements 0 0 1 0 Physical Exam GENERAL: Well-nourished, well-developed patient in no apparent distress. SKIN: Warm and dry. NECK: JVD normal - less than or equal to 5 cm H20. CARDIOVASCULAR: Regular rate and rhythm without murmurs, gallops or rubs. RESPIRATORY: Normal breath sounds - equal bilaterally. No accessory muscle use. No wheezes, rales or rubs. PERIPHERY: No cyanosis or edema. Laboratory Laboratory Tests Test 03/17/17 05:40 White Blood Count 8.9 TH/MM3 Red Blood Count 3.55 MIL/MM3 Hemoglobin 10.1 GM/DL Hematocrit 30.2 % Mean Corpuscular Volume 85.1 FL Mean Corpuscular Hemoglobin 28.4 PG Mean Corpuscular Hemoglobin 33.4 % Concent Red Cell Distribution Width 15.5 % Platelet Count 108 TH/MM3 Mean Platelet Volume 8.3 FL Activated Partial 46.6 SEC Thromboplast Time Sodium Level 136 MEQ/L Potassium Level 4.0 MEQ/L Chloride Level 105 MEQ/L Carbon Dioxide Level 21.6 MEQ/L Anion Gap 9 MEQ/L Blood Urea Nitrogen 20 MG/DL Creatinine 1.34 MG/DL Estimat Glomerular Filtration 39 ML/MIN Rate Random Glucose 77 MG/DL Calcium Level 7.5 MG/DL Phosphorus Level 1.8 MG/DL Magnesium Level 2.3 MG/DL Assessment and Plan Problem List: (1) Atrial flutter with rapid ventricular response (2) Elevated troponin (3) S/P AVR (4) Altered mental status (5) Encephalopathy (6) Diabetes (7) Hyperlipidemia (8) NATALIA (acute kidney injury) Assessment and Plan: Was too ill today will do a DORIE tomorrow to study for endocarditis (9) Streptococcal bacteremia Assessment and Plan Overall getting better await echo, concerning given prosthetic valve. Problem Qualifiers (1) Altered mental status: Josep Monsalve MD March 17, 2017 17:38
--- NOTE | 2017-03-17 18:01 | HHI.CCPN ---
Subjective Remarks/Hospital Course Ms. Jerome is a pleasant 76 year old female with a history of severe aortic stenosis s/p AVR (bovine valve), primary biliary cirrhosis, DM who presented to the ED on 03/11/2017 due to generalized weakness. She has been very tired and sleeping most of the hours. 03/13: Currently afebrile. Noted lumbar puncture performed overnight. Glucose possibly inappropriately low otherwise unremarkable. Some red blood cells/ leukocytosis. Currently on aztreonam, gentamicin and Flagyl continued by my colleague. Infectious disease consult and will defer to their recommendations. Awake and alert and oriented 3. On low-dose dopamine at 4 g per kilogram per minute bradycardia denies chest pain, shortness of breath. 03/14: Afebrile. Remains on dopamine drip at 6 mcg. On attempt to wean remains bradycardic. Appears to be in sinus bradycardia at the present time. Noted elevated white blood cell count today. Rocephin added by infectious disease. Echocardiogram revealed no signs of endocarditis. Plan for DORIE on Friday. 03/15 Blood cultures 03/11, , all persistently positive and those from 03/14 are pending. DORIE planned. Nauseated, vomited x1 this morning. Poor appetite. Last BM was 3 days ago. On dopamine 5 mcg/kg/min...weaning off. 03/16blood culture from 03/14 as negative to date. EGD plan for a.m. with DORIE to follow. Off dopamine. Patient states "I am finally starting to feel better Subjective: 03/17: blood cultures still persistently negative. EGD done today without varices. DORIE post-poned due to recurrent bradycardia. Cr increased significantly to 1.3 this AM. Objective Vital Signs Date Time Temp Pulse Resp B/P Pulse Ox O2 Delivery O2 Flow Rate FiO2 03/17/17 16:00 66 03/17/17 16:00 98.7 25 143/66 97 03/17/17 10:50 Room Air 03/17/17 10:40 2 03/14/17 19:02 21 Intake and Output 03/16/17 03/16/17 03/17/17 08:00 16:00 00:00 Intake Total 75 ml 1033 ml 319 ml Output Total 150 ml 125 ml Balance -75 ml 1033 ml 194 ml Result Diagram: 03/17/17 0540 03/17/17 0540 Imaging Last Impressions Chest X-Ray 03/13/17 0759 Signed Impressions: Service Date/Time: February 07:59 - CONCLUSION: Right IJ line distal tip at the cavoatrial junction. No pneumothorax is visualized. Reynaldo Higgins MD Neck CTA 03/12/17 0000 Signed Impressions: Service Date/Time: Sunday, March 12, 2017 20:22 - CONCLUSION: Slight atherosclerosis of both carotid bifurcations without narrowing. Dominant left vertebral artery. Reynaldo Lazar MD Head CTA 03/12/17 0000 Signed Impressions: Service Date/Time: Sunday, March 12, 2017 20:22 - CONCLUSION: Normal intracranial arteries. Reynaldo Lazar MD Head CT 03/12/17 0000 Signed Impressions: Service Date/Time: Sunday, March 12, 2017 19:02 - CONCLUSION: Negative noncontrast head CT. Reynaldo Lazar MD Objective Remarks GENERAL: 76-year-old female, sitting up in bed, alert pleasant and talkative. SKIN: Warm and dry. No rash HEAD: Atraumatic. Normocephalic. EYES: Pupils equal and round about 2-3 mm bilaterally and reactive. No scleral icterus. No injection or drainage. ENT: No nasal bleeding or discharge. Mucous membranes pink and moist. NECK: Trachea midline. No JVD. Right IJ dressing clean dry and intact CARDIOVASCULAR: Bradycardia, normal rhythm. NL S1S2, 3/6 systolic murmur RSB. No JVD. RESPIRATORY: No accessory muscle use. CTAB. Breath sounds equal bilaterally. GASTROINTESTINAL: Abdomen soft, non-tender, nondistended. Hypoactive bowel sounds are appreciated MUSCULOSKELETAL: Extremities without difficulty and peripheral edema. No obvious deformities. NEUROLOGICAL: Awake and alert, some repetitive conversation. No obvious cranial nerve deficits. Motor grossly within normal limits. Five out of 5 muscle strength in the arms and legs. Normal speech. Date of Insertion: Mar 13, 2017 Line: Central Venous Catheter Side: Right Location: Internal, Jugular A/P Assessment and Plan Neuro/Psych: Acute encephalopathy, improved CT head/ 03/12 revealed no acute intracranial findings. CTA head 03/12 revealed no acute signs of bleeding/aneurysm CTA neck 03/12 revealed mild plaques bilateral bulb/internal carotid otherwise unremarkable. Dr. Velasco Discussed with Dr. Vidal /neurology, recommended anticoagulation; on heparin drip. CV: Atrial fib Now Sinus bradycardia History of bioprosthetic aortic valve replacement 2012 [id number] at [facility] Elevated troponin Hyperlipidemia Off dopamine since 03/15. but with increasing Cr, slightly lower uop, and recurrent bradycardia, will turn dopamine back on. Holding home medications losartan 100 mg by mouth daily in light of hypotension. Continue Lipitor 10 mg by mouth daily for dyslipidemia. Echocardiogram revealed EF 65-70%. No regional wall motion abnormality. Mild MR/TR. Specifically all valves showed no signs of endocarditis Plan for DORIE 03/17 Troponin 0.18 Continue Lipitor 10 mg by mouth daily at bedtime [id number] 5 - On heparin drip Hold heparin drip at [address] Monsalve/cardiology plans DORIE on Friday Resp: Nasal cannula to maintain saturations greater than equal to 92% Incentive spirometry while awake On ProAir inhaler every 6 hours at home for shortness of breath. As needed albuterol nebs every 2 hours GI: Stage IV biliary cirrhosis Gastro esophageal reflux disease Hiatal hernia Hypo-albuminemia On Prilosec 20 mg by mouth daily home for gastroesophageal reflux disease. Substituting Protonix here 40 mg IV On spironolactone 25 mg daily and Lasix 20 mg 2 times a week for cirrhosis. Was on hold due to hypotension, resume when clinically indicated, likely start by resuming lasix tomorrow. Continue rosaura 500 mg Twice a day/home medication for her biliary cirrhosis. She will bring this medication home as hospital does not have appropriate dosage Advanced heart healthy diet Dr. Garcia EGD 03/17 without varices. FEN/RENAL: Acute kidney injury Hyponatremia - resolved Voiding. Monitoring output. Fluids on KVO. ICU electrolyte replacement protocol Endo: Diabetes mellitus Hypothyroidism Holding Tresiba/home medication 10 units before meals/at bedtime -Detemir 10 units subcutaneous twice a day. medium dose sliding scale ac/hs Hold detemir 10 units subcut in am because will be npo for DORIE Decrease Levoxyl from 100 -75 mcg daily. TSH was low at 0.2. T4 was elevated at 1.6. Heme: Anemia History of basal carcinoma/melanoma? of the nares Heparin drip Monitor CBC. Thrombocytopenia has resolved ID: Strep bacteremia TTE negative for vegetations. Bioprosthetic aortic valve. DORIE plan for Saturday 03/17. Continue Rocephin started 03/14. Vancomycin 03/13. Infectious disease Dr. Harrison following Pertinent cultures 03/14 blood culture - NGTD 03/13 - blood cultures 1 - strep 03/12 - UA -mixed hemanth 03/12 - blood culture 1 -strep 03/12 - CSF - Gram stain negative. 03/11 - blood cultures 2 -strep bacteremia MSK: PT evaluate and treat Access - Right IJ CVL placed 03/13/[address] PIV and d/c CVL after procedures tomorrow. Prophylaxis - GI -Protonix - DVT - SCD. Heparin drip (hold as per above) Out of bed. PT/OT. Level 3 followup Alf Sultana MD March 17, 2017 18:01
[2017-03-17] MEDS ORDERED: DOPamine INJ PREMIX 500 ML IV SCH (19:00)
[2017-03-17] MEDS: ONDANSETRON HCL 4 MG/2 ML VIAL IV PRN (19:36)
[2017-03-17] MEDS: INSULIN DETEMIR 100 UNITS/ML VIAL SQ SCH (21:00)
[2017-03-17] MEDS: ATORVASTATIN 10 MG TAB PO SCH (21:07)
[2017-03-18] VITALS (15 sets, daily range): BP systolic 116–163; BP diastolic 58–83; PULSE 64–140; RESP 22–33; TEMP 98.1–98.9; O2SAT 96–100
[2017-03-18] MEDS: HEPARIN-D5W INJ 250 ML IV SCH ×2 (01:00→16:57)
[2017-03-18 01:10] LABS: APTT (PATIENT) 54.8 SEC (24.3-30.1)
[2017-03-18 04:24] LABS: HEMATOCRIT 31.8 % (35.0-46.0); MEAN CELL VOLUME 84.8 FL (80.0-100.0); MEAN CORPUSCULAR HEMOGLOBIN 29.2 PG (27.0-34.0); MEAN CORPUSCULAR HGB CONC 34.4 % (32.0-36.0); PLATELET COUNT 111 TH/MM3 (150-450); RED BLOOD COUNT 3.75 MIL/MM3 (4.00-5.30); RED CELL DISTRIBUTION WIDTH 15.7 % (11.6-17.2); REVIEW FLAG FINAL; WHITE BLOOD COUNT 7.3 TH/MM3 (4.0-11.0)
[2017-03-18 04:58] LABS: BICARBONATE 19.8 MEQ/L (21.0-32.0); POTASSIUM 4.6 MEQ/L (3.5-5.1)
[2017-03-18 05:13] LABS: CALCIUM-PROTEIN CORRECTED 8.1 MG/DL (8.5-10.1)
[2017-03-18] MEDS: LEVOTHYROXINE SODIUM 75 MCG TAB PO SCH (06:25)
[2017-03-18] MEDS: INSULIN ASPART SUPPLEMENTAL SCALE SQ SCH ×5 (06:26→20:14)
[2017-03-18] MEDS: INSULIN DETEMIR 100 UNITS/ML VIAL SQ SCH ×2 (09:00→20:14)
[2017-03-18] MEDS: DOCUSATE SODIUM 100 MG CAP PO SCH ×2 (09:00→20:12)
[2017-03-18] MEDS: MULTIVITAMIN TAB PO SCH (09:00)
[2017-03-18] MEDS: SENNOSIDES 8.6 MG TAB PO SCH ×2 (09:00→20:12)
[2017-03-18] MEDS: URSODIOL PO SCH ×2 (09:00→20:11)
[2017-03-18] MEDS ORDERED: DILTIAZEM HCL 25 MG/5 ML VIAL IV ONE ×2 (09:15→11:00)
[2017-03-18] MEDS: SODIUM CHLORIDE 0.9% FLUSH 10 ML FLUSH IV FLUSH SCH ×2 (09:19→20:11)
[2017-03-18] MEDS: PANTOPRAZOLE SODIUM 40 MG VIAL IV SCH (09:19)
[2017-03-18] MEDS: SODIUM CHLORIDE 0.9% FLUSH 10 ML FLUSH IVF SCH (09:22)
[2017-03-18] MEDS ORDERED: PROPOFOL 200 MG/20 ML AMP IV ONE (11:14)
[2017-03-18] MEDS ORDERED: PHENYLEPH/NS 1000 MCG/10 ML SYR IV ONE (11:14)
[2017-03-18] MEDS: ONDANSETRON HCL 4 MG/2 ML VIAL IV PRN (11:30)
--- NOTE | 2017-03-18 11:48 | HHI.IDPN ---
Note Infectious Disease Note Patient has nausea. Had episode of vomiting last night. Has had bout of diarrhea since last night. Stool now loose but not liquid. No chills, No CP. No SOB. No abdominal pain. In rapid atrial fibrillation. Worsening renal function. Afebrile. 03/14 - Blood culture has no growth. 03/13 - Blood cultures has strep viridans. 03/12 - Blood cultures has strep viridans. 03/11 - Blood cultures has strep viridans. 03/17 - EGD procedure. No varices. Presented to emergency department on 03/11 with generalized weakness. The patient previously presented to [facility] one week ago after three days of generalized weakness and diarrhea. She was evaluated and the white blood cell count was normal and she was afebrile. PAST MEDICAL HISTORY 1. Biliary cirrhosis 2. Diabetes mellitus 3. Appendectomy 4. Hysterectomy. 5. Aortic valve replacement in 2012 with Bovine valve. 6. Gastroesophageal reflux disease 7. Bilateral cataract surgery, one was done February 2017 and the first was January 2017. ALLERGIES AMPICILLIN LEAD TO SHORTNESS OF BREATH. PATIENT ABLE TO TOLERATE AMOXICILLIN. LEVAQUIN SULFA MACROBID IODINE CONTRAST MEDIA. HEART DISEASE. ANTIBIOTICS: Ceftriaxone. SOCIAL HISTORY No tobacco use. Social alcohol use. No illicit drugs. OBJECTIVE: Vital Signs Date Time Temp Pulse Resp B/P Pulse Ox O2 Delivery O2 Flow Rate FiO2 03/18/17 08:00 116 03/18/17 08:00 98.1 116 24 122/83 97 03/18/17 07:59 97 21 03/18/17 06:00 105 03/18/17 04:00 104 03/18/17 04:00 98.2 104 25 125/62 97 03/18/17 02:00 104 03/18/17 00:00 101 03/18/17 00:00 98.2 101 22 122/64 97 03/17/17 22:00 96 03/17/17 20:53 96 03/17/17 20:00 98.7 103 25 120/61 96 03/17/17 20:00 103 03/17/17 18:00 61 03/17/17 16:00 66 03/17/17 16:00 98.7 66 25 143/66 97 03/17/17 14:00 54 03/17/17 12:00 98.8 55 24 112/55 98 03/17/17 12:00 55 03/17/17 03/17/17 03/18/17 15:00 23:00 07:00 Intake Total 250 ml 215 ml 46 ml Output Total 15 ml 230 ml Balance 235 ml -15 ml 46 ml Intake Oral 0 ml IV Total 100 ml 215 ml 46 ml Other 150 ml Output Urine Total 15 ml 200 ml Emesis 30 ml Estimated Blood Loss 0 ml # Voids 1 1 # Bowel Movements 0 1 1 Laboratory Tests Test 03/17/17 03/18/17 05:40 03:55 White Blood Count 8.9 TH/MM3 7.3 TH/MM3 Red Blood Count 3.55 MIL/MM3 3.75 MIL/MM3 Hemoglobin 10.1 GM/DL 10.9 GM/DL Hematocrit 30.2 % 31.8 % Mean Corpuscular Volume 85.1 FL 84.8 FL Mean Corpuscular Hemoglobin 28.4 PG 29.2 PG Mean Corpuscular Hemoglobin 33.4 % 34.4 % Concent Red Cell Distribution Width 15.5 % 15.7 % Platelet Count 108 TH/MM3 111 TH/MM3 Mean Platelet Volume 8.3 FL 7.9 FL Laboratory Tests Test 03/17/17 03/18/17 05:40 03:55 Sodium Level 136 MEQ/L 136 MEQ/L Potassium Level 4.0 MEQ/L 4.6 MEQ/L Chloride Level 105 MEQ/L 105 MEQ/L Carbon Dioxide Level 21.6 MEQ/L 19.8 MEQ/L Anion Gap 9 MEQ/L 11 MEQ/L Blood Urea Nitrogen 20 MG/DL 25 MG/DL Creatinine 1.34 MG/DL 2.45 MG/DL Estimat Glomerular Filtration 39 ML/MIN 19 ML/MIN Rate Random Glucose 77 MG/DL 155 MG/DL Calcium Level 7.5 MG/DL 7.2 MG/DL Phosphorus Level 1.8 MG/DL Magnesium Level 2.3 MG/DL Protein Corrected Calcium 8.1 MG/DL Total Protein 5.5 GM/DL Microbiology Date/Time Procedure Status Source Growth 03/14/17 14:56 Aerobic Blood Culture - Preliminary Resulted Blood Peripheral NO GROWTH IN 3 DAYS 03/14/17 14:56 Anaerobic Blood Culture - Preliminary Resulted Blood Peripheral NO GROWTH IN 3 DAYS IMAGING: Chest X-Ray 03/15/17 0600 Signed Impressions: Service Date/Time: Wednesday, March 15, 2017 04:56 - CONCLUSION: Worsening consolidation and effusion at the left lung base. Reynaldo Lazar MD Neck CTA 03/12/17 Signed Impressions: Service Date/Time: Sunday, March 12, 2017 20:22 - CONCLUSION: Slight atherosclerosis of both carotid bifurcations without narrowing. Dominant left vertebral artery. Reynaldo Lazar MD Head CTA 03/12/17 0000 Signed Impressions: Service Date/Time: Sunday, March 12, 2017 20:22 - CONCLUSION: Normal intracranial arteries. Reynaldo Lazar MD Head CT 03/12/17 0000 Signed Impressions: Service Date/Time: Sunday, March 12, 2017 19:02 - CONCLUSION: Negative noncontrast head CT. Reynaldo Lazar MD PHYSICAL EXAMINATION GENERAL: Awake and alert. HEENT: No icterus. No conjunctival erythema. Oropharynx no thrush. No lesions. NECK: Supple without adenopathy or swelling. No JVD. LUNGS: Decreased breath sounds. HEART: 3/6 blowing systolic ejection murmur at the left sternal border and also at the upper right sternal border. ABDOMEN: Bowel sounds present, soft, no tenderness. EXTREMITIES: No clubbing or cyanosis. Ecchymosis of the hands. No clubbing, cyanosis or edema. No peripheral embolic lesions. NEUROLOGIC: Nonfocal. SKIN: No diffuse rash. Dry. Decreased turgor. PSYCHIATRIC: The patient is calm and cooperative. IMPRESSION 1. Bacteremia due to Viridans Strep. 2. Sepsis. 3. Altered mental status secondary to Sepsis. Improved. 4. Leukocytosis. Improved. 5. Acute kidney disease. Worsening kidney function. Probably related to aminoglycoside/dehydration. RECOMMENDATIONS 1. Continue Ceftriaxone. 2. DORIE as planned by Cardiology. 3. Renal consult for worsening renal function. 4. Send stool for c. diff if diarrhea persist. Discussed with RN/ Daughter at bedside. Edwin Harrison MD March 18, 2017 11:48
[2017-03-18] MEDS ORDERED: DILTIAZEM 125 MG/NS 100 ML IV SCH ×2 (12:15)
[2017-03-18] MEDS: cefTRIAXone INJ 2,000 MG in SODIUM CHLORIDE 0.9% INJ 100 ML IV SCH (12:43)
--- NOTE | 2017-03-18 14:07 | PD.CONS ---
HPI Service Nephrology Consult Requested By Dr. Harrison Reason for Consult Acute renal failure Primary Care Physician Bonnie Campos MD History of Present Illness Patient is a 76-year-old white female with history of biliary cirrhosis, aortic valve surgery, she has been diagnosed with streptococcal viridans infection and has been in ICU, she has atrial fibrillation with RVR and is on diltiazem drip she has not been eating or drinking properly for blood pressure is borderline low at times she states that she has dropped her urine output as well, her creatinine was 0.5 on 03/15/17 and now is 2.4, she did have an episode of diarrhea yesterday and has persistent nausea. Review of Systems Constitutional: COMPLAINS OF: Fatigue Gastrointestinal: COMPLAINS OF: Diarrhea, Nausea Past Family Social History Allergies: Coded Allergies: Macrobid (Unverified Allergy, Severe, itching, 03/11/17) Adhesives (Verified Allergy, Intermediate, REDNESS, ITCHING, 03/11/17) Ampicillin (Verified Allergy, Mild, 03/11/17) Contrast Media (Verified Allergy, Mild, 03/11/17) Iodine (Verified Allergy, Mild, 03/11/17) Levaquin (Verified Allergy, Mild, 03/11/17) Sulfa (Verified Allergy, Mild, 03/11/17) *MDRO Multi-Drug Resistant Organism (Verified Adverse Reaction, Unknown, ) CLEARED PER INFECTION CONTROL PROTOCOL 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 Spironolactone 25 Mg Tab 25 Mg PO DAILY Proair Hfa 8.5 GM Inh (Albuterol Sulfate) 90 Mcg/Act Aer 2 Puff INH Q4-6H PRN 108 mcg/actuation Metanx (j-Drgvjlfirwus-Ujtft) 1 Cap 1 Caplet PO BID Tresiba Flextouch Pen Inj (Insulin Degludec Inj) 300 unit/3 ML Pen 10 Units SQ AC BREAKFAST Premarin (Estrogens Conjugated) 0.3 Mg Tab 0.3 Mg PO DIRECTED 3 TIMES A WEEK Lasix (Furosemide) 20 Mg Tab 20 Mg PO 2XWEEK Losartan (Losartan Potassium) 100 Mg Tab 100 Mg PO DAILY Omeprazole 20 Mg Tab 20 Mg PO DAILY Lipitor (Atorvastatin Calcium) 10 Mg Tab 10 Mg PO HS Synthroid (Levothyroxine Sodium) 100 Mcg Tab 100 Mcg PO DAILY Multi-Vitamin Daily (Multiple Vitamin) 1 Tab Tab 1 Tab PO DAILY Mckenna 250 (Ursodiol) 250 Mg Tab 500 Mg PO BID Active Ordered Medications Current Medications Medications (Trade) Dose Ordered Sig/Tunde Route Start Time Stop Time Status Last Admin (NS Flush) 2 ml UNSCH PRN IV FLUSH 03/12/17 01:00 03/14/17 09:14 (Narcan Inj) 0.4 mg UNSCH PRN IV 03/12/17 01:00 (Lipitor) 10 mg HS PO 03/12/17 21:00 03/17/17 21:07 (Brethine Inj) 1 mg UNSCH PRN SQ 03/13/17 04:45 (Synthroid) 75 mcg DAILY@06 PO 03/14/17 06:00 03/18/17 06:25 (NS Flush) DAILY IVF 03/13/17 09:00 03/18/17 09:22 (NS Flush) UNSCH PRN IVF 03/13/17 08:00 03/14/17 09:13 (NS Flush) 2 ml UNSCH PRN IV FLUSH 03/13/17 08:30 03/14/17 09:13 (NS Flush) 2 ml BID IV FLUSH 03/13/17 09:00 03/18/17 09:19 (Tylenol) 650 mg Q6H PRN PO 03/13/17 08:30 03/14/17 21:41 ([place] 5-325 Mg) 1 tab Q4H PRN PO 03/13/17 08:30 03/16/17 11:17 (Protonix Inj) 40 mg DAILY IV 03/13/17 09:00 03/18/17 09:19 (Zofran Inj) 4 mg Q6H PRN IV 03/13/17 08:30 03/18/17 11:30 (Colace) 100 mg BID PO 03/13/17 09:00 03/15/17 09:42 Miscellaneous Information 1 Q361D XX 03/13/17 08:30 03/14/17 09:14 (Chlorhexidine 2% Cloth) 3 pack Taper DAILY@04 TOP 03/14/17 04:00 03/10/18 03:59 03/17/17 21:10 (Chlorhexidine 2% Cloth) 3 pack UNSCH PRN TOP 03/13/17 08:30 (Theragran) 1 tab DAILY PO 03/13/17 11:30 03/16/17 09:22 Insulin Detemir 10 units 10 units BID SQ 03/13/17 21:00 03/16/17 21:00 (Rocephin Inj/NS Inj) 100 ml @ 200 mls/hr Q24H IV 03/14/17 13:00 03/18/17 12:43 (Tums Chew) 500 mg Q2H PRN CHEW 03/14/17 17:00 03/14/17 21:40 Sennosides 17.2 mg 17.2 mg Q12H PO 03/14/17 21:00 (Heparin-D5W Inj) 250 ml @ 0 mls/hr TITRATE IV 03/14/17 20:45 03/18/17 01:00 (D50w (Vial) Inj) 25 ml UNSCH PRN IV PUSH 03/15/17 08:15 03/17/17 11:35 (Glucagon Inj) 1 mg UNSCH PRN OTHER 03/15/17 08:15 Patient Own Medication PT OWN MED: Ursod... BID PO 03/15/17 13:00 03/17/17 21:00 Potassium Chloride 100 ml @ 50 mls/hr Q2H PRN IV 03/16/17 19:15 (KCl 20 Meq Premix Inj) 100 ml @ 50 mls/hr Q2H PRN IV 03/16/17 19:15 Potassium Bicarb/ Potassium Chloride 50 meq 50 meq UNSCH PRN PO 03/16/17 19:15 Potassium Chloride 100 ml @ 25 mls/hr UNSCH PRN IV 03/16/17 19:15 Potassium Chloride 100 ml @ 50 mls/hr Q2H PRN IV 03/16/17 19:15 (Magnesium Sulfate Inj/NS Inj) 100 ml @ 50 mls/hr UNSCH PRN IV 03/16/17 19:15 Magnesium Oxide 800 mg 800 mg UNSCH PRN PO 03/16/17 19:15 (Magnesium Sulfate Inj/NS Inj) 100 ml @ 50 mls/hr UNSCH PRN IV 03/16/17 19:15 Potassium Phosphate 2000 mg 2,000 mg Q4H PRN PO 03/16/17 19:15 (Sodium Phosphate Inj/NS 250 ml Inj) 250 ml @ 42 mls/hr UNSCH PRN IV 03/16/17 19:15 Potassium Phosphate 2000 mg 2,000 mg UNSCH PRN PO/TUBE 03/16/17 19:15 Dopamine HCl/ Dextrose 500 ml @ 8.168 mls/ hr TITRATE IV 03/17/17 19:00 03/17/17 18:17 (Cardizem Inj/NS Inj) 125 ml @ 0 mls/hr TITRATE IV 03/18/17 12:15 03/18/17 12:44 Family History Noncontributory Social History Denies smoking or alcohol use Physical Exam Vital Signs Vital Signs Date Time Temp Pulse Resp B/P Pulse Ox O2 Delivery O2 Flow Rate FiO2 03/18/17 12:00 102 03/18/17 10:00 98 03/18/17 08:00 116 03/18/17 08:00 98.1 116 24 122/83 97 03/18/17 07:59 97 21 03/18/17 06:00 105 03/18/17 04:00 104 03/18/17 04:00 98.2 104 25 125/62 97 03/18/17 02:00 104 03/18/17 00:00 101 03/18/17 00:00 98.2 101 22 122/64 97 03/17/17 22:00 96 03/17/17 20:53 96 03/17/17 20:00 98.7 103 25 120/61 96 03/17/17 20:00 103 03/17/17 18:00 61 03/17/17 16:00 66 03/17/17 16:00 98.7 66 25 143/66 97 03/17/17 14:00 54 Physical Exam GENERAL: Well-nourished, well-developed patient. SKIN: Warm and dry. HEAD: Normocephalic. EYES: No scleral icterus. No injection or drainage. NECK: Supple, trachea midline. No JVD or lymphadenopathy. CARDIOVASCULAR: Irregularly irregular RESPIRATORY: Breath sounds equal bilaterally. No accessory muscle use. GASTROINTESTINAL: Abdomen soft, non-tender, nondistended. EXTREMITIES: No cyanosis, or edema. NEUROLOGICAL: Awake, alert, and oriented x 3. Non-focal. Laboratory Laboratory Tests Test 03/18/17 03/18/17 00:40 03:55 Activated Partial 54.8 Thromboplast Time White Blood Count 7.3 Red Blood Count 3.75 Hemoglobin 10.9 Hematocrit 31.8 Mean Corpuscular Volume 84.8 Mean Corpuscular Hemoglobin 29.2 Mean Corpuscular Hemoglobin 34.4 Concent Red Cell Distribution Width 15.7 Platelet Count 111 Mean Platelet Volume 7.9 Sodium Level 136 Potassium Level 4.6 Chloride Level 105 Carbon Dioxide Level 19.8 Anion Gap 11 Blood Urea Nitrogen 25 Creatinine 2.45 Estimat Glomerular Filtration 19 Rate Random Glucose 155 Calcium Level 7.2 Protein Corrected Calcium 8.1 Total Protein 5.5 Date/Time Procedure Status Source Growth 03/14/17 14:56 Aerobic Blood Culture - Preliminary Resulted Blood Peripheral NO GROWTH IN 4 DAYS 03/14/17 14:56 Anaerobic Blood Culture - Preliminary Resulted Blood Peripheral NO GROWTH IN 4 DAYS Result Diagram: 03/18/17 0355 03/18/17 0355 Imaging Last Impressions Chest X-Ray 03/15/17 0600 Signed Impressions: Service Date/Time: Wednesday, March 15, 2017 04:56 - CONCLUSION: Worsening consolidation and effusion at the left lung base. Reynaldo Lazar MD Neck CTA 03/12/17 0000 Signed Impressions: Service Date/Time: Sunday, March 12, 2017 20:22 - CONCLUSION: Slight atherosclerosis of both carotid bifurcations without narrowing. Dominant left vertebral artery. Reynaldo Lazar MD Head CTA 03/12/17 0000 Signed Impressions: Service Date/Time: Sunday, March 12, 2017 20:22 - CONCLUSION: Normal intracranial arteries. Reynaldo Lazar MD Head CT 03/12/17 0000 Signed Impressions: Service Date/Time: Sunday, March 12, 2017 19:02 - CONCLUSION: Negative noncontrast head CT. Reynaldo Lazar MD Assessment and Plan Problem List: (1) Acute renal failure Plan: This is likely dehydration as he she has poor oral intake I will start her on IV fluid half normal saline with 75 MEQ of sodium bicarbonate at 100 cc an hour Check urine sodium and creatinine Order kidney ultrasound Follow-up BMP Avoid nephrotoxins, dye studies, gadolinium She did have CTA with last week of February however her creatinine was 0.5 on 15 of March Her phosphorus was 1.8 and this needs to be replaced (2) Streptococcal bacteremia Plan: Infectious disease is following she is on broad-spectrum antibiotic ceftriaxone (3) Atrial flutter with rapid ventricular response Plan: On diltiazem (4) Biliary liver cirrhosis Plan: Follows with GI Problem Qualifiers (1) Acute renal failure: Qualified Code: N17.9 - Acute renal failure, unspecified acute renal failure type Molly Peng MD March 18, 2017 14:07
[2017-03-18] MEDS ORDERED: SODIUM PHOSPHATE INJ 15 MMOL in SODIUM CHLORIDE 0.9% INJ 150 ML IV ONE (15:00)
--- NOTE | 2017-03-18 15:08 | PD.CARD ---
Cardiology Procedure Note Procedure Name: DORIE Procedure Date: March 18, 2017 Procedure Note: Evidence of thickening of the prosthetic AV consistent with vegetation. AV functioning normally, no sig AI , prosthetic valve stenosis. Josep Monsalve MD March 18, 2017 15:08
[2017-03-18] MEDS: SODIUM BICARBONATE 8.4% INJ 75 MEQ in SODIUM CHLOR 0.45% 1000 ML INJ 1,000 ML IV SCH (15:29)
[2017-03-18] MEDS ORDERED: PHARMACY ORDERED LAB ONE (17:45)
[2017-03-18] MEDS: ATORVASTATIN 10 MG TAB PO SCH (20:14)
[2017-03-18] MEDS: CALCIUM CARBONATE 500 MG CHEWABLE TAB CHEW PRN (20:24)
--- NOTE | 2017-03-18 20:31 | HHI.CCPN ---
Subjective Remarks/Hospital Course Ms. Jerome is a pleasant 76 year old female with a history of severe aortic stenosis s/p AVR (bovine valve), primary biliary cirrhosis, DM who presented to the ED on 03/11/2017 due to generalized weakness. She has been very tired and sleeping most of the hours. 03/13: Currently afebrile. Noted lumbar puncture performed overnight. Glucose possibly inappropriately low otherwise unremarkable. Some red blood cells/ leukocytosis. Currently on aztreonam, gentamicin and Flagyl continued by my colleague. Infectious disease consult and will defer to their recommendations. Awake and alert and oriented 3. On low-dose dopamine at 4 g per kilogram per minute bradycardia denies chest pain, shortness of breath. 03/14: Afebrile. Remains on dopamine drip at 6 mcg. On attempt to wean remains bradycardic. Appears to be in sinus bradycardia at the present time. Noted elevated white blood cell count today. Rocephin added by infectious disease. Echocardiogram revealed no signs of endocarditis. Plan for DORIE on Friday. 03/15 Blood cultures 03/11, , all persistently positive and those from 03/14 are pending. DORIE planned. Nauseated, vomited x1 this morning. Poor appetite. Last BM was 3 days ago. On dopamine 5 mcg/kg/min...weaning off. 03/16blood culture from 03/14 as negative to date. EGD plan for a.m. with DORIE to follow. Off dopamine. Patient states "I am finally starting to feel better 03/17: blood cultures still persistently negative. EGD done today without varices. DORIE post-poned due to recurrent bradycardia. Cr increased significantly to 1.3 this AM. 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 Cr continues to increase, agree with nephrology that this today is likely hypovolemic. ivf started. afib RVR overnight, given cardizem and started on cardizem drip. Objective Vital Signs Date Time Temp Pulse Resp B/P Pulse Ox O2 Delivery O2 Flow Rate FiO2 03/18/17 19:46 100 21 03/18/17 18:00 73 03/18/17 16:02 98.9 26 124/63 03/17/17 10:50 Room Air 03/17/17 10:40 2 Intake and Output 03/17/17 03/17/17 03/18/17 08:00 16:00 00:00 Intake Total 267 ml 250 ml 215 ml Output Total 10 ml 15 ml 230 ml Balance 257 ml 235 ml -15 ml Result Diagram: 03/18/17 0355 03/18/17 0355 Imaging Last Impressions Chest X-Ray 03/13/17 0759 Signed Impressions: Service Date/Time: February 07:59 - CONCLUSION: Right IJ line distal tip at the cavoatrial junction. No pneumothorax is visualized. Reynaldo Higgins MD Neck CTA 03/12/17 0000 Signed Impressions: Service Date/Time: Sunday, March 12, 2017 20:22 - CONCLUSION: Slight atherosclerosis of both carotid bifurcations without narrowing. Dominant left vertebral artery. Reynaldo Lazar MD Head CTA 03/12/17 0000 Signed Impressions: Service Date/Time: Sunday, March 12, 2017 20:22 - CONCLUSION: Normal intracranial arteries. Reynaldo Lazar MD Head CT 03/12/17 0000 Signed Impressions: Service Date/Time: Sunday, March 12, 2017 19:02 - CONCLUSION: Negative noncontrast head CT. Reynaldo Lazar MD Objective Remarks GENERAL: 76-year-old female, sitting up in bed, alert pleasant and talkative. SKIN: Warm and dry. No rash HEAD: Atraumatic. Normocephalic. EYES: Pupils equal and round about 2-3 mm bilaterally and reactive. No scleral icterus. No injection or drainage. ENT: No nasal bleeding or discharge. Mucous membranes pink and moist. NECK: Trachea midline. No JVD. Right IJ dressing clean dry and intact CARDIOVASCULAR: tachycardic, irregular rhythm 3/6 systolic murmur RSB. No JVD. RESPIRATORY: No accessory muscle use. CTAB. Breath sounds equal bilaterally. GASTROINTESTINAL: Abdomen soft, non-tender, nondistended. MUSCULOSKELETAL: Extremities without difficulty and peripheral edema. No obvious deformities. NEUROLOGICAL: Awake and alert, follows commands. RASS 0. Date of Insertion: Mar 13, 2017 Line: Central Venous Catheter Side: Right Location: Internal, Jugular A/P Assessment and Plan Neuro/Psych: Acute encephalopathy, improved CT head/ 03/12 revealed no acute intracranial findings. CTA head 03/12 revealed no acute signs of bleeding/aneurysm CTA neck 03/12 revealed mild plaques bilateral bulb/internal carotid otherwise unremarkable. Dr. Velasco Discussed with Dr. Vidal /neurology, recommended anticoagulation; on heparin drip. CV: Atrial fib History of bioprosthetic aortic valve replacement 2012 [id number] at [facility] Elevated troponin Hyperlipidemia Off dopamine since 03/15. Holding home medications losartan 100 mg by mouth daily in light of hypotension. Continue Lipitor 10 mg by mouth daily for dyslipidemia. Echocardiogram revealed EF 65-70%. No regional wall motion abnormality. Mild MR/TR. DORIE 03/17: aortic valve thickening consistent with endocarditis. Troponin 0.18 Continue Lipitor 10 mg by mouth daily at bedtime [id number] - On heparin drip Dr. Monsalve/cardiology Start Diltiazem 60mg po q6h and wean off Diltiazem drip. Resp: Nasal cannula to maintain saturations greater than equal to 92% Incentive spirometry while awake On ProAir inhaler every 6 hours at home for shortness of breath. As needed albuterol nebs every 2 hours GI: Stage IV biliary cirrhosis Gastro esophageal reflux disease Hiatal hernia Hypo-albuminemia On Prilosec 20 mg by mouth daily home for gastroesophageal reflux disease. Substituting Protonix here 40 mg IV On spironolactone 25 mg daily and Lasix 20 mg 2 times a week for cirrhosis. Was on hold due to hypotension, resume when clinically indicated, likely start by resuming lasix tomorrow. Continue rosaura 500 mg Twice a day/home medication for her biliary cirrhosis. She will bring this medication home as hospital does not have appropriate dosage Heart healthy diet Dr. Garcia EGD 03/17 without varices. FEN/RENAL: Acute kidney injury Hyponatremia - resolved Voiding. Monitoring output. nephrology consult: Dr. mason ivf: 1/2NS with bicarb @ 100cc/hr. ICU electrolyte replacement protocol Endo: Diabetes mellitus Hypothyroidism Holding Tresiba/home medication 10 units before meals/at bedtime -Detemir 10 units subcutaneous twice a day. medium dose sliding scale ac/hs Decrease Levoxyl from 100 -75 mcg daily. TSH was low at 0.2. T4 was elevated at 1.6. Heme: Anemia History of basal carcinoma/melanoma? of the nares Heparin drip Monitor CBC. Thrombocytopenia has resolved ID: Strep bacteremia DORIE with evidence of bioprosthetic aortic valve endocarditis Continue Rocephin started 03/14. Vancomycin 03/13. Infectious disease Dr. Harrison following Pertinent cultures 03/14 blood culture - NGTD 03/13 - blood cultures 1 - strep 03/12 - UA -mixed hemanth 03/12 - blood culture 1 -strep 03/12 - CSF - Gram stain negative. 03/11 - blood cultures 2 -strep bacteremia MSK: PT evaluate and treat Access - Right IJ CVL placed 03/13/17 #6. obtain 2 piv and d/c cvl. Prophylaxis - GI -Protonix - DVT - SCD. Heparin drip Out of bed. PT/OT. Transfer to [facility]. hospitalist consult. Clinically improving. Alf Sultana MD March 18, 2017 20:31
[2017-03-18] MEDS: DILTIAZEM HCL 60 MG TAB PO SCH (21:15)
--- NOTE | 2017-03-18 21:42 | MP ---
cc: JOSEP MONSALVE MD, [place] DATE OF SURGERY 03/17/17 PROCEDURE Transesophageal echo INDICATION Suspect prosthetic valve endocarditis, strep viridans, multiple positive blood cultures CONSENT Full informed was obtained prior to procedure. Risks of , bleeding, perforation, aspiration, foreseen and unforeseen complications were explained. Foreseen and unforeseen complications The patient fully appeared to understand the risks. PROCEDURE IN DETAIL The patient was draped and prepped in usual sterile fashion. A full transesophageal echo was performed. FINDINGS The aortic valve is thickened. There is evidence of a vegetation on the leaflets. It is thickened of about 3-4 mm. The aortic valve has evidence of a gradient (transthoracic) consistent with normal prosthetic valve stenosis given the small size of the valve used. The valve opens well suggesting this is a physiological stenosis and not pathologic There is no s aortic regurgitation There is mild tricuspid regurgitation with trace mitral regurgitation. The interatrial septum is intact. The interventricular is intact. LV function was normal: The aorta was visualized to 40 cm with some mild plaquing in the aorta but no obvious vegetation. CONCLUSION Evidence of vegetation on prosthetic valve which was difficult to see consistent with the Streptococcus viridans. The aortic valve otherwise appears to be functioning well. PLAN Try to treat medically with antibiotics, would be at increased risk for surgery given her comorbid problems. Josep Monsalve MD, FRCP,[facility]/ /3:13 PM /9:36 PM [facility]
[2017-03-18] MEDS ORDERED: diphenhydrAMINE HCL 25 MG CAP PO PRN (22:15)
[2017-03-18 23:17] LABS: APTT (PATIENT) 39.8 SEC (24.3-30.1)
[2017-03-19] VITALS (23 sets, daily range): BP systolic 100–121; BP diastolic 50–66; PULSE 48–92; RESP 16–26; TEMP 98.1–98.9; O2SAT 95–99
[2017-03-19] MEDS: DILTIAZEM HCL 60 MG TAB PO SCH ×4 (00:03→18:10)
[2017-03-19] MEDS: SODIUM BICARBONATE 8.4% INJ 75 MEQ in SODIUM CHLOR 0.45% 1000 ML INJ 1,000 ML IV SCH ×2 (00:03→12:30)
[2017-03-19] MEDS: CHLORHEXIDINE GLUCONATE 2 % 1 PACK (2 CLOTHS) TOP SCH (00:04)
--- NOTE | 2017-03-19 00:48 | RADRPT ---
EXAM DATE/TIME: 03/18/2017 17:35 [place] COMPARISON: No previous studies available for comparison. INDICATIONS : Increased BUN/creatinine. MEDICAL HISTORY : Congestive heart failure. Hypercholesterolemia. Osteoporosis. Thyroid disease. HTN. Dyspnea. GERD. Hi atal hernia. Stage IV renal disease. Back pain. Broken pelvis. Arthritis. Diabetes. Cirrhosis. MRSA. SURGICAL HISTORY : Coronary artery stent. Cholecystectomy. Appendectomy. Bilateral cataracts. Atrial valve replacement. Venous strip. Hysterectomy. Meniscus repair. Blood transfusions. ENCOUNTER: Initial ACUITY: 1 day PAIN SCORE: 0/10 LOCATION: Bilateral flank MEASUREMENTS: RIGHT KIDNEY: 11.6 x 5.4 x 5.2 cm LEFT KIDNEY: 13.1 x 5.3 x 5.1 cm FINDINGS: The kidneys demonstrates increased echogenicity of the cortex compatible with medical renal disease. No hydronephrosis or mass lesions are identified. Small amount of free fluid is present in the hepato renal fossa and pelvis. Small bilateral pleural effusions are identified. CONCLUSION: 1. Echogenic kidneys bilaterally compatible with medical renal disease. 2. Small volume ascites Dimitrios Lopez MD on March 19, 2017 at 0:46 Board Certified Radiologist. This report was verified electronically.
[2017-03-19 05:20] LABS: MEAN CELL VOLUME 86.6 FL (80.0-100.0); MEAN CORPUSCULAR HEMOGLOBIN 28.8 PG (27.0-34.0); MEAN CORPUSCULAR HGB CONC 33.2 % (32.0-36.0); PLATELET COUNT 119 TH/MM3 (150-450); RED BLOOD COUNT 3.46 MIL/MM3 (4.00-5.30); RED CELL DISTRIBUTION WIDTH 15.7 % (11.6-17.2); REVIEW FLAG FINAL; WHITE BLOOD COUNT 9.7 TH/MM3 (4.0-11.0)
[2017-03-19 05:39] LABS: APTT (PATIENT) 52.5 SEC (24.3-30.1)
[2017-03-19 05:57] LABS: INDIRECT BILIRUBIN 0.3 MG/DL (0.0-0.8); POTASSIUM 4.1 MEQ/L (3.5-5.1)
[2017-03-19 06:28] LABS: CALCIUM-PROTEIN CORRECTED 7.9 MG/DL (8.5-10.1)
[2017-03-19] MEDS: LEVOTHYROXINE SODIUM 75 MCG TAB PO SCH (06:29)
[2017-03-19] MEDS: INSULIN ASPART SUPPLEMENTAL SCALE SQ SCH ×4 (06:32→22:05)
[2017-03-19] MEDS: INSULIN DETEMIR 100 UNITS/ML VIAL SQ SCH ×2 (08:49→22:00)
[2017-03-19] MEDS: MULTIVITAMIN TAB PO SCH (08:49)
[2017-03-19] MEDS: URSODIOL PO SCH ×2 (08:50→21:58)
[2017-03-19] MEDS: DOCUSATE SODIUM 100 MG CAP PO SCH ×2 (09:00→21:00)
[2017-03-19] MEDS: SENNOSIDES 8.6 MG TAB PO SCH ×2 (09:00→21:00)
[2017-03-19] MEDS: SODIUM CHLORIDE 0.9% FLUSH 10 ML FLUSH IVF SCH (09:00)
[2017-03-19] MEDS: SODIUM CHLORIDE 0.9% FLUSH 10 ML FLUSH IV FLUSH SCH ×2 (09:00→21:00)
--- NOTE | 2017-03-19 11:34 | HHI.PR ---
Subjective Remarks Feeling better today. No confusion. No fever. Objective Vital Signs Date Time Temp Pulse Resp B/P Pulse Ox O2 Delivery O2 Flow Rate FiO2 03/19/17 10:00 65 03/19/17 08:00 98.2 66 16 116/66 95 03/19/17 07:00 66 03/19/17 06:00 49 03/19/17 04:00 98.9 48 26 107/53 97 03/19/17 04:00 48 03/19/17 02:00 50 03/19/17 00:00 98.2 52 26 100/50 97 03/19/17 00:00 52 03/18/17 22:00 64 03/18/17 20:00 112 03/18/17 20:00 98.2 112 24 116/58 98 03/18/17 19:46 100 21 03/18/17 18:00 73 03/18/17 16:02 98.9 82 26 124/63 96 03/18/17 16:00 82 03/18/17 14:00 112 03/18/17 12:00 102 03/18/17 12:00 98.5 140 33 163/61 97 I/O 03/18/17 03/18/17 03/18/17 03/19/17 03/19/17 03/19/17 07:00 15:00 23:00 07:00 15:00 23:00 Intake Total 46 ml 131 ml 835 ml 835 ml Balance 46 ml 131 ml 835 ml 835 ml Intake Oral 0 ml 200 ml 150 ml IV Total 46 ml 131 ml 635 ml 685 ml # Voids 1 1 1 # Bowel Movements 1 1 1 Result Diagram: 03/19/17 0417 03/19/17 0417 Imaging Last Impressions Renal Ultrasound 03/18/17 0000 Signed Impressions: Service Date/Time: Saturday, March 18, 2017 17:35 - CONCLUSION: 1. Echogenic kidneys bilaterally compatible with medical renal disease. 2. Small volume ascites Dimitrios Lopez MD Chest X-Ray 03/15/17 0600 Signed Impressions: Service Date/Time: Wednesday, March 15, 2017 04:56 - CONCLUSION: Worsening consolidation and effusion at the left lung base. Reynaldo Lazar MD Neck CTA 03/12/17 0000 Signed Impressions: Service Date/Time: Sunday, March 12, 2017 20:22 - CONCLUSION: Slight atherosclerosis of both carotid bifurcations without narrowing. Dominant left vertebral artery. Reynaldo Lazar MD Head CTA 03/12/17 0000 Signed Impressions: Service Date/Time: Sunday, March 12, 2017 20:22 - CONCLUSION: Normal intracranial arteries. Reynaldo Lazar MD Head CT 03/12/17 0000 Signed Impressions: Service Date/Time: Sunday, March 12, 2017 19:02 - CONCLUSION: Negative noncontrast head CT. Reynaldo Lazar MD Objective Remarks GENERAL: NAD, A&Ox3 SKIN: Warm and dry. HEAD: Normocephalic. EYES: No scleral icterus. No injection or drainage. NECK: Supple, trachea midline. No JVD or lymphadenopathy. CARDIOVASCULAR: Regular rate and rhythm without murmurs, gallops, or rubs. RESPIRATORY: Breath sounds equal bilaterally. No accessory muscle use. GASTROINTESTINAL: Abdomen soft, non-tender, nondistended. MUSCULOSKELETAL: No cyanosis, or edema. BACK: Nontender without obvious deformity. No CVA tenderness. Medications and IVs Last Impressions Renal Ultrasound 03/18/17 0000 Signed Impressions: Service Date/Time: Saturday, March 18, 2017 17:35 - CONCLUSION: 1. Echogenic kidneys bilaterally compatible with medical renal disease. 2. Small volume ascites Dimitrios Lopez MD Chest X-Ray 03/15/17 0600 Signed Impressions: Service Date/Time: Wednesday, March 15, 2017 04:56 - CONCLUSION: Worsening consolidation and effusion at the left lung base. Reynaldo Lazar MD Neck CTA 03/12/17 0000 Signed Impressions: Service Date/Time: Sunday, March 12, 2017 20:22 - CONCLUSION: Slight atherosclerosis of both carotid bifurcations without narrowing. Dominant left vertebral artery. Reynaldo Lazar MD Head CTA 03/12/17 0000 Signed Impressions: Service Date/Time: Sunday, March 12, 2017 20:22 - CONCLUSION: Normal intracranial arteries. Reynaldo Lazar MD Head CT 03/12/17 0000 Signed Impressions: Service Date/Time: Sunday, March 12, 2017 19:02 - CONCLUSION: Negative noncontrast head CT. 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 Strep Bacteremia (Strep V) Continue Rocephin Improving with antibiotics Cardiology following Latest blood cultures are negative Encephalopathy Resolved Likely was related to infectious state NATALIA Gradual worsening in the past three days Nephrology following Continue IV Hydration Follow renal function A-fib with RVR Likely a response to infection Controlled on a Diltiazem PO Follow on telemetry Continue Heparin Drip Cardiology following Anemia Shows stability through time Follow CBC No need to stop Heparin drip as long as stability remains Hyperlipidemia Statin Follow as an outpatient Biliary Cirrhosis, state IV Spironolactone continued Lasix continued Mckenna continued DM2 SSI Diabetic Diet Follow blood sugars Hypothyroidism Continue supplementation GERD Hiatal Hernia Continue PPI Follow clinically DVT Prophylaxis SCDs and Heparin drip Problem Qualifiers (1) Acute renal failure: Qualified Code: N17.9 - Acute renal failure, unspecified acute renal failure type Raimundo Kathleen MD March 19, 2017 11:34
[2017-03-19 11:49] LABS: APTT (PATIENT) 62.5 SEC (24.3-30.1)
--- NOTE | 2017-03-19 11:54 | HHI.IDPN ---
Note Infectious Disease Note DORIE noted - vegetation on aortic valve. Patient feels weak. No nausea. Not eating much. poor appetite. Had bout of loose stool this am. Not liquid. No chills, No CP. No SOB. Afebrile. Worsening renal function. Renal consult noted. HR improved. 03/14 - Blood culture has no growth. 03/13 - Blood cultures has strep viridans. 03/12 - Blood cultures has strep viridans. 03/11 - Blood cultures has strep viridans. 03/17 - EGD procedure. No varices. Presented to emergency department on 03/11 with generalized weakness. The patient previously presented to [facility] one week ago after three days of generalized weakness and diarrhea. She was evaluated and the white blood cell count was normal and she was afebrile. PAST MEDICAL HISTORY 1. Biliary cirrhosis 2. Diabetes mellitus 3. Appendectomy 4. Hysterectomy. 5. Aortic valve replacement in 2012 with Bovine valve. 6. Gastroesophageal reflux disease 7. Bilateral cataract surgery, one was done February 2017 and the first was January 2017. ALLERGIES AMPICILLIN LEAD TO SHORTNESS OF BREATH. PATIENT ABLE TO TOLERATE AMOXICILLIN. LEVAQUIN SULFA MACROBID IODINE CONTRAST MEDIA. HEART DISEASE. ANTIBIOTICS: Ceftriaxone. SOCIAL HISTORY No tobacco use. Social alcohol use. No illicit drugs. OBJECTIVE: Vital Signs Date Time Temp Pulse Resp B/P Pulse Ox O2 Delivery O2 Flow Rate FiO2 03/19/17 11:00 59 03/19/17 10:00 65 03/19/17 08:00 98.2 66 16 116/66 95 03/19/17 07:00 66 03/19/17 06:00 49 03/19/17 04:00 98.9 48 26 107/53 97 03/19/17 04:00 48 03/19/17 02:00 50 03/19/17 00:00 98.2 52 26 100/50 97 03/19/17 00:00 52 03/18/17 22:00 64 03/18/17 20:00 112 03/18/17 20:00 98.2 112 24 116/58 98 03/18/17 19:46 100 21 03/18/17 18:00 73 03/18/17 16:02 98.9 82 26 124/63 96 03/18/17 16:00 82 03/18/17 14:00 112 03/18/17 12:00 102 03/18/17 12:00 98.5 140 33 163/61 97 03/18/17 03/18/17 03/19/17 15:00 23:00 07:00 Intake Total 131 ml 835 ml 835 ml Balance 131 ml 835 ml 835 ml Intake Oral 0 ml 200 ml 150 ml IV Total 131 ml 635 ml 685 ml # Voids 1 1 # Bowel Movements 1 1 Laboratory Tests Test 03/18/17 03/19/17 03:55 04:17 White Blood Count 7.3 TH/MM3 9.7 TH/MM3 Red Blood Count 3.75 MIL/MM3 3.46 MIL/MM3 Hemoglobin 10.9 GM/DL 10.0 GM/DL Hematocrit 31.8 % 30.0 % Mean Corpuscular Volume 84.8 FL 86.6 FL Mean Corpuscular Hemoglobin 29.2 PG 28.8 PG Mean Corpuscular Hemoglobin 34.4 % 33.2 % Concent Red Cell Distribution Width 15.7 % 15.7 % Platelet Count 111 TH/MM3 119 TH/MM3 Mean Platelet Volume 7.9 FL 8.1 FL Laboratory Tests Test 03/18/17 03/19/17 03:55 04:17 Sodium Level 136 MEQ/L 138 MEQ/L Potassium Level 4.6 MEQ/L 4.1 MEQ/L Chloride Level 105 MEQ/L 106 MEQ/L Carbon Dioxide Level 19.8 MEQ/L 22.0 MEQ/L Anion Gap 11 MEQ/L 10 MEQ/L Blood Urea Nitrogen 25 MG/DL 33 MG/DL Creatinine 2.45 MG/DL 3.17 MG/DL Estimat Glomerular Filtration 19 ML/MIN 14 ML/MIN Rate Random Glucose 155 MG/DL 127 MG/DL Calcium Level 7.2 MG/DL 7.0 MG/DL Protein Corrected Calcium 8.1 MG/DL 7.9 MG/DL Total Protein 5.5 GM/DL 5.3 GM/DL Phosphorus Level 4.0 MG/DL Total Bilirubin 1.0 MG/DL Direct Bilirubin 0.7 MG/DL Indirect Bilirubin 0.3 MG/DL Aspartate Amino Transf 31 U/L (AST/SGOT) Alanine Aminotransferase 20 U/L (ALT/SGPT) Alkaline Phosphatase 158 U/L Albumin 1.7 GM/DL IMAGING: Renal Ultrasound 03/18/17 0000 Signed Impressions: Service Date/Time: Saturday, March 18, 2017 17:35 - CONCLUSION: 1. Echogenic kidneys bilaterally compatible with medical renal disease. 2. Small volume ascites Dimitrios Lopez MD Chest X-Ray 03/15/17 0600 Signed Impressions: Service Date/Time: Wednesday, March 15, 2017 04:56 - CONCLUSION: Worsening consolidation and effusion at the left lung base. Reynaldo Lazar MD Neck CTA 03/12/17 0000 Signed Impressions: Service Date/Time: Sunday, March 12, 2017 20:22 - CONCLUSION: Slight atherosclerosis of both carotid bifurcations without narrowing. Dominant left vertebral artery. Reynaldo Lazar MD Head CTA 03/12/17 0000 Signed Impressions: Service Date/Time: Sunday, March 12, 2017 20:22 - CONCLUSION: Normal intracranial arteries. Reynaldo Lazar MD Head CT 03/12/17 0000 Signed Impressions: Service Date/Time: Sunday, March 12, 2017 19:02 - CONCLUSION: Negative noncontrast head CT. Reynaldo Lazar MD PHYSICAL EXAMINATION GENERAL: Awake and alert. HEENT: No icterus. No conjunctival erythema. Oropharynx no thrush. Ecchymotic lesion at r. tip of tongue. NECK: Supple without adenopathy or swelling. No JVD. LUNGS: Decreased breath sounds. HEART: 3/6 blowing systolic ejection murmur at the left sternal border and also at the upper right sternal border. ABDOMEN: Bowel sounds present, soft, no tenderness. EXTREMITIES: No clubbing or cyanosis. Ecchymosis of the hands. No clubbing, cyanosis or edema. No peripheral embolic lesions. NEUROLOGIC: Nonfocal. SKIN: No diffuse rash. Dry. Decreased turgor. PSYCHIATRIC: The patient is calm and cooperative. IMPRESSION 1. Bacteremia due to Viridans Strep. 2. Bioprosthetic aortic valve endocarditis. 3. Sepsis. 4. Altered mental status secondary to Sepsis. Resolved. 5. Leukocytosis. Improved. 6. Acute kidney disease. Worsening kidney function. Probably related to aminoglycoside/dehydration. Given the presence of vegetation she is at risk of complications such as valve malfunction and emboli. RECOMMENDATIONS 1. Continue Ceftriaxone. 2. Repeat blood cultures. 3. Follow renal function. 4. Monitor clinical status. Discussed with RN/ at bedside. Edwin Harrison MD March 19, 2017 11:54
[2017-03-19] MEDS: cefTRIAXone INJ 2,000 MG in SODIUM CHLORIDE 0.9% INJ 100 ML IV SCH (13:17)
--- NOTE | 2017-03-19 13:50 | HHI.NPPN ---
Subjective History of Present Illness 76 Year old W Female with ARF, Biliary Cirrhosis Review of Systems General Constitutional: Fatigue Objective Data Data 03/18/17 03/19/17 19:00 07:00 Intake Total 131 ml 1670 ml Balance 131 ml 1670 ml Intake Oral 0 ml 350 ml IV Total 131 ml 1320 ml # Voids 1 1 # Bowel Movements 1 1 Vital Signs Date Time Temp Pulse Resp B/P Pulse Ox O2 Delivery O2 Flow Rate FiO2 03/19/17 13:00 68 03/19/17 12:00 55 03/19/17 11:53 97 21 03/19/17 11:00 98.1 61 16 109/58 96 03/19/17 11:00 59 03/19/17 10:00 65 03/19/17 08:00 98.2 66 16 116/66 95 03/19/17 07:00 66 03/19/17 06:00 49 03/19/17 04:00 98.9 48 26 107/53 97 03/19/17 04:00 48 03/19/17 02:00 50 03/19/17 00:00 98.2 52 26 100/50 97 03/19/17 00:00 52 03/18/17 22:00 64 03/18/17 20:00 112 03/18/17 20:00 98.2 112 24 116/58 98 03/18/17 19:46 100 21 03/18/17 18:00 73 03/18/17 16:02 98.9 82 26 124/63 96 03/18/17 16:00 82 03/18/17 14:00 112 -: 03/19/17 0417 03/19/17 0417 Microbiology 03/19/17 Aerobic Blood Culture, Received Pending 03/19/17 Anaerobic Blood Culture, Received Pending 03/19/17 Aerobic Blood Culture, Received Pending 03/19/17 Anaerobic Blood Culture, Received Pending Physical Exam General Appearance: Well Developed Neck Neck Exam: Neck Supple Pulmonary Resp Exam: Clear Bilaterally Cardiology CV Exam: Irregular Gastrointestinal/Abdomen GI Exam: Soft, Non-Tender, Bowel Sounds Present Extremeties Extremities Exam: No Edema Assessment/Plan Problem List: (1) Acute renal failure Plan: This is ARF Cr slightly up try albumin give loop diuretic to increase UOP follow BMP She did have CTA with last week february however her creatinine was 0.5 on 15 of March Her phosphorus is 4 (2) Streptococcal bacteremia Plan: Infectious disease is following she is on broad-spectrum antibiotic ceftriaxone (3) Atrial flutter with rapid ventricular response Plan: On diltiazem (4) Biliary liver cirrhosis Plan: Follows with GI Problem Qualifiers (1) Acute renal failure: Qualified Code: N17.9 - Acute renal failure, unspecified acute renal failure type Molly Peng MD March 19, 2017 13:49
[2017-03-19] MEDS ORDERED: BUMETANIDE INJ 1 MG/4 ML VIAL IV PUSH ONE (14:00)
--- NOTE | 2017-03-19 14:16 | PD.CARD.PN ---
Subjective Subjective Remarks Feels better , creatinine better ? dehydration. Objective Medications Administered Medications Medications (Trade) Dose Ordered Sig/Tunde Route PRN Reason Start Time Stop Time Status Last Admin Dose Admin Sodium Chloride (NS Flush) 2 ml UNSCH PRN IV FLUSH FLUSH AFTER USING IV ACCESS 03/12/17 01:00 03/14/17 09:14 Atorvastatin Calcium (Lipitor) 10 mg HS PO 03/12/17 21:00 03/18/17 20:14 Levothyroxine Sodium (Synthroid) 75 mcg DAILY@06 PO 03/14/17 06:00 03/19/17 06:29 Sodium Chloride (NS Flush) DAILY IVF 03/13/17 09:00 03/18/17 09:22 Sodium Chloride (NS Flush) UNSCH PRN IVF SEE PROTOCOL 03/13/17 08:00 03/14/17 09:13 Sodium Chloride (NS Flush) 2 ml UNSCH PRN IV FLUSH FLUSH AFTER USING IV ACCESS 03/13/17 08:30 03/14/17 09:13 Sodium Chloride (NS Flush) 2 ml BID IV FLUSH 03/13/17 09:00 03/18/17 20:11 Acetaminophen (Tylenol) 650 mg Q6H PRN PO PAIN 1-2 AND/OR FEVER >101F 03/13/17 08:30 03/14/17 21:41 Acetaminophen/ Hydrocodone Bitart (Sigurd 5-325 Mg) 1 tab Q4H PRN PO PAIN SCALE 3 TO 5 03/13/17 08:30 03/16/17 11:17 Ondansetron HCl (Zofran Inj) 4 mg Q6H PRN IV NAUSEA OR VOMITING 03/13/17 08:30 03/18/17 11:30 Docusate Sodium (Colace) 100 mg BID PO 03/13/17 09:00 03/15/17 09:42 Miscellaneous Information 1 Q361D XX 03/13/17 08:30 03/14/17 09:14 Chlorhexidine Gluconate (Chlorhexidine 2% Cloth) Taper DAILY@04 TOP 03/14/17 04:00 03/10/18 03:59 03/19/17 00:04 Multivitamins (Theragran) 1 tab DAILY PO 03/13/17 11:30 03/19/17 08:49 Insulin Detemir 10 units 10 units BID SQ 03/13/17 21:00 03/19/17 08:49 Ceftriaxone Sodium/Sodium Chloride (Rocephin Inj/NS Inj) 100 ml @ 200 mls/hr Q24H IV 03/14/17 13:00 03/19/17 13:17 Calcium Carbonate 500 mg 500 mg Q2H PRN CHEW heartburn 03/14/17 17:00 03/18/17 20:24 Heparin Sodium/ Dextrose (Heparin-D5W Inj) 250 ml @ 0 mls/hr TITRATE IV 03/14/17 20:45 03/18/17 16:57 Dextrose (D50w (Vial) Inj) 25 ml UNSCH PRN IV PUSH HYPOGLYCEMIA-SEE COMMENTS 03/15/17 08:15 03/17/17 11:35 Patient Own Medication PT OWN MED: Ursod... BID PO 03/15/17 13:00 03/19/17 08:50 Sodium Bicarbonate/ Sodium Chloride (Sodium Bicarbonate 8.4% Inj/11/18 NS 1000 ml Inj) 1,075 ml @ 100 mls/hr [id number] IV 03/18/17 15:00 03/19/17 12:30 Diltiazem HCl (Cardizem) 60 mg Q6HR PO 03/18/17 20:20 03/19/17 00:03 Vital Signs / I&O Vital Signs Date Time Temp Pulse Resp B/P Pulse Ox O2 Delivery O2 Flow Rate FiO2 03/19/17 14:00 71 03/19/17 13:00 68 03/19/17 12:00 55 03/19/17 11:53 97 21 03/19/17 11:00 98.1 61 16 109/58 96 03/19/17 11:00 59 03/19/17 10:00 65 03/19/17 08:00 98.2 66 16 116/66 95 03/19/17 07:00 66 03/19/17 06:00 49 03/19/17 04:00 98.9 48 26 107/53 97 03/19/17 04:00 48 03/19/17 02:00 50 03/19/17 00:00 98.2 52 26 100/50 97 03/19/17 00:00 52 03/18/17 22:00 64 03/18/17 20:00 112 03/18/17 20:00 98.2 112 24 116/58 98 03/18/17 19:46 100 21 03/18/17 18:00 73 03/18/17 16:02 98.9 82 26 124/63 96 03/18/17 16:00 82 I/O 03/18/17 03/18/17 03/18/17 03/19/17 03/19/17 03/19/17 07:00 15:00 23:00 07:00 15:00 23:00 Intake Total 46 ml 131 ml 835 ml 835 ml Balance 46 ml 131 ml 835 ml 835 ml Intake Oral 0 ml 200 ml 150 ml IV Total 46 ml 131 ml 635 ml 685 ml # Voids 1 1 1 # Bowel Movements 1 1 1 Physical Exam GENERAL: Well-nourished, well-developed patient in no apparent distress. SKIN: Warm and dry. NECK: JVD normal - less than or equal to 5 cm H20. CARDIOVASCULAR: Regular rate and rhythm without murmurs, gallops or rubs. RESPIRATORY: Normal breath sounds - equal bilaterally. No accessory muscle use. No wheezes, rales or rubs. PERIPHERY: No cyanosis or edema. Laboratory Laboratory Tests Test 03/18/17 03/19/17 03/19/17 22:25 04:17 10:55 Activated Partial 39.8 SEC 52.5 SEC 62.5 SEC Thromboplast Time White Blood Count 9.7 TH/MM3 Red Blood Count 3.46 MIL/MM3 Hemoglobin 10.0 GM/DL Hematocrit 30.0 % Mean Corpuscular Volume 86.6 FL Mean Corpuscular Hemoglobin 28.8 PG Mean Corpuscular Hemoglobin 33.2 % Concent Red Cell Distribution Width 15.7 % Platelet Count 119 TH/MM3 Mean Platelet Volume 8.1 FL Sodium Level 138 MEQ/L Potassium Level 4.1 MEQ/L Chloride Level 106 MEQ/L Carbon Dioxide Level 22.0 MEQ/L Anion Gap 10 MEQ/L Blood Urea Nitrogen 33 MG/DL Creatinine 3.17 MG/DL Estimat Glomerular Filtration 14 ML/MIN Rate Random Glucose 127 MG/DL Calcium Level 7.0 MG/DL Protein Corrected Calcium 7.9 MG/DL Phosphorus Level 4.0 MG/DL Total Bilirubin 1.0 MG/DL Direct Bilirubin 0.7 MG/DL Indirect Bilirubin 0.3 MG/DL Aspartate Amino Transf 31 U/L (AST/SGOT) Alanine Aminotransferase 20 U/L (ALT/SGPT) Alkaline Phosphatase 158 U/L Total Protein 5.3 GM/DL Albumin 1.7 GM/DL Imaging Last 48 hours Impressions Renal Ultrasound 03/18/17 0000 Signed Impressions: Service Date/Time: Saturday, March 18, 2017 17:35 - CONCLUSION: 1. Echogenic kidneys bilaterally compatible with medical renal disease. 2. Small volume ascites Dimitrios Lopez MD Assessment and Plan Problem List: (1) Atrial flutter with rapid ventricular response (2) Elevated troponin (3) S/P AVR (4) Altered mental status (5) Encephalopathy (6) Diabetes (7) Hyperlipidemia (8) NATALIA (acute kidney injury) (9) Streptococcal bacteremia Assessment and Plan Has prosthetic valve endocarditis ; vegetation seen Problem Qualifiers (1) Altered mental status: Josep Monsalve MD March 19, 2017 14:16
[2017-03-19] MEDS: ALBUMIN HUMAN 25% 25 GM/100 ML BAGP IV SCH (16:48)
[2017-03-19] MEDS: ACETAMINOPHEN/HYDROcodone 325 MG/5 MG TAB PO PRN (21:54)
[2017-03-19] MEDS: ATORVASTATIN 10 MG TAB PO SCH (21:55)
[2017-03-19] MEDS: HEPARIN-D5W INJ 250 ML IV SCH (22:11)
[2017-03-20] VITALS (26 sets, daily range): BP systolic 93–109; BP diastolic 43–58; PULSE 48–79; RESP 16; TEMP 97.3–98.9; O2SAT 88–97
[2017-03-20] MEDS: SODIUM BICARBONATE 8.4% INJ 75 MEQ in SODIUM CHLOR 0.45% 1000 ML INJ 1,000 ML IV SCH ×3 (02:22→22:40)
[2017-03-20] MEDS: ALBUMIN HUMAN 25% 25 GM/100 ML BAGP IV SCH ×3 (02:23→16:00)
[2017-03-20] MEDS: CHLORHEXIDINE GLUCONATE 2 % 1 PACK (2 CLOTHS) TOP SCH (04:00)
[2017-03-20 06:21] LABS: HEMATOCRIT 25.8 % (35.0-46.0); MEAN CELL VOLUME 85.9 FL (80.0-100.0); MEAN CORPUSCULAR HEMOGLOBIN 30.4 PG (27.0-34.0); MEAN CORPUSCULAR HGB CONC 35.4 % (32.0-36.0); PLATELET COUNT 97 TH/MM3 (150-450); RED BLOOD COUNT 3.01 MIL/MM3 (4.00-5.30); WHITE BLOOD COUNT 7.5 TH/MM3 (4.0-11.0)
[2017-03-20 06:27] LABS: APTT (PATIENT) 48.5 SEC (24.3-30.1)
[2017-03-20 06:30] LABS: BICARBONATE 22.1 MEQ/L (21.0-32.0); POTASSIUM 3.7 MEQ/L (3.5-5.1)
[2017-03-20 06:38] LABS: REVIEW FLAG FINAL
[2017-03-20] MEDS: LEVOTHYROXINE SODIUM 75 MCG TAB PO SCH (06:43)
[2017-03-20 07:05] LABS: CALCIUM-PROTEIN CORRECTED 7.4 MG/DL (8.5-10.1)
[2017-03-20] MEDS: SENNOSIDES 8.6 MG TAB PO SCH ×2 (09:00→21:00)
[2017-03-20] MEDS: DOCUSATE SODIUM 100 MG CAP PO SCH ×2 (09:00→21:00)
[2017-03-20] MEDS: SODIUM CHLORIDE 0.9% FLUSH 10 ML FLUSH IVF SCH (09:00)
[2017-03-20] MEDS: URSODIOL PO SCH ×2 (09:35→22:34)
[2017-03-20] MEDS: ONDANSETRON HCL 4 MG/2 ML VIAL IV PRN (09:35)
[2017-03-20] MEDS: DILTIAZEM HCL 60 MG TAB PO SCH ×3 (09:37→18:00)
[2017-03-20] MEDS: MULTIVITAMIN TAB PO SCH (09:37)
[2017-03-20] MEDS: INSULIN DETEMIR 100 UNITS/ML VIAL SQ SCH ×2 (09:38→22:38)
[2017-03-20] MEDS: CALCIUM CARBONATE 1.25 GM (CA 500 MG) TAB PO SCH ×3 (09:38→18:00)
[2017-03-20] MEDS: SODIUM CHLORIDE 0.9% FLUSH 10 ML FLUSH IV FLUSH SCH ×2 (09:40→22:34)
[2017-03-20] MEDS: INSULIN ASPART SUPPLEMENTAL SCALE SQ SCH ×3 (11:00→21:00)
--- NOTE | 2017-03-20 11:12 | HHI.NPPN ---
Subjective History of Present Illness 76 Year old W Female with ARF, Biliary Cirrhosis Review of Systems General Constitutional: Fatigue Objective Data Data 03/19/17 03/20/17 19:00 07:00 Intake Total 2132 ml 1580 ml Output Total 400 ml 240 ml Balance 1732 ml 1340 ml Intake Oral 720 ml 480 ml IV Total 1412 ml 1100 ml Output Urine Total 400 ml 240 ml # Bowel Movements 1 Vital Signs Date Time Temp Pulse Resp B/P Pulse Ox O2 Delivery O2 Flow Rate FiO2 03/20/17 10:00 58 03/20/17 09:00 60 03/20/17 08:15 97.3 64 16 108/58 94 03/20/17 08:00 56 03/20/17 07:47 95 21 03/20/17 07:00 58 03/20/17 06:42 52 03/20/17 05:00 52 03/20/17 04:00 52 03/20/17 03:00 52 03/20/17 03:00 98.2 53 16 93/57 96 03/20/17 02:00 48 03/20/17 01:00 50 03/20/17 00:00 52 03/20/17 00:00 98.3 68 16 105/53 97 03/19/17 23:00 50 03/19/17 22:00 68 03/19/17 21:00 88 03/19/17 20:05 98.1 91 16 121/50 99 03/19/17 20:00 86 03/19/17 19:00 92 03/19/17 18:12 84 03/19/17 17:58 98 21 03/19/17 17:00 55 03/19/17 16:14 63 03/19/17 15:00 98.2 58 16 110/66 98 03/19/17 15:00 57 03/19/17 14:00 71 03/19/17 13:00 68 03/19/17 12:00 55 03/19/17 11:53 97 21 -: 03/20/17 0525 03/20/17 0525 Microbiology 03/19/17 Aerobic Blood Culture - Preliminary, Resulted NO GROWTH IN 1 DAY 03/19/17 Anaerobic Blood Culture - Preliminary, Resulted NO GROWTH IN 1 DAY 03/19/17 Aerobic Blood Culture - Preliminary, Resulted NO GROWTH IN 1 DAY 5/3/17 Anaerobic Blood Culture - Preliminary, Resulted NO GROWTH IN 1 DAY Physical Exam General Appearance: Well Developed Neck Neck Exam: Neck Supple Pulmonary Resp Exam: Clear Bilaterally Cardiology CV Exam: Irregular Gastrointestinal/Abdomen GI Exam: Soft, Non-Tender, Bowel Sounds Present Extremeties Extremities Exam: No Edema Assessment/Plan Problem List: (1) Acute renal failure Plan: This is ARF Cr worse try Bumex higher dose improved urine output decrease IV fluids On albumin Urine output marginally better but creatinine is worse consider dialysis follow BMP She did have CTA with last week february however her creatinine was 0.5 on 15 of March (2) Streptococcal bacteremia Plan: Infectious disease is following she is on broad-spectrum antibiotic ceftriaxone (3) Atrial flutter with rapid ventricular response Plan: On diltiazem (4) Biliary liver cirrhosis Plan: Follows with GI Problem Qualifiers (1) Acute renal failure: Qualified Code: N17.9 - Acute renal failure, unspecified acute renal failure type Molly Peng MD March 20, 2017 11:12
[2017-03-20] MEDS ORDERED: BUMETANIDE INJ 1 MG/4 ML VIAL IV PUSH ONE (11:15)
--- NOTE | 2017-03-20 12:01 | HHI.PR ---
Subjective Remarks No fever. Engaging in PT today. Case discussed with patient and her . Objective Vital Signs Date Time Temp Pulse Resp B/P Pulse Ox O2 Delivery O2 Flow Rate FiO2 03/20/17 10:00 58 03/20/17 09:00 60 03/20/17 08:15 97.3 64 16 108/58 94 03/20/17 08:00 56 03/20/17 07:47 95 21 03/20/17 07:00 58 03/20/17 06:42 52 03/20/17 05:00 52 03/20/17 04:00 52 03/20/17 03:00 52 03/20/17 03:00 98.2 53 16 93/57 96 03/20/17 02:00 48 03/20/17 01:00 50 03/20/17 00:00 52 03/20/17 00:00 98.3 68 16 105/53 97 03/19/17 23:00 50 03/19/17 22:00 68 03/19/17 21:00 88 03/19/17 20:05 98.1 91 16 121/50 99 03/19/17 20:00 86 03/19/17 19:00 92 03/19/17 18:12 84 03/19/17 17:58 98 21 03/19/17 17:00 55 03/19/17 16:14 63 03/19/17 15:00 98.2 58 16 110/66 98 03/19/17 15:00 57 03/19/17 14:00 71 03/19/17 13:00 68 03/19/17 12:00 55 I/O 03/19/17 03/19/17 03/19/17 03/20/17 03/20/17 03/20/17 06:59 14:59 22:59 06:59 14:59 22:59 Intake Total 835 ml 2132 ml 1580 ml Output Total 400 ml 240 ml Balance 835 ml 1732 ml 1340 ml Intake Oral 150 ml 720 ml 480 ml IV Total 685 ml 1412 ml 1100 ml Output Urine Total 400 ml 240 ml # Voids 1 # Bowel Movements 1 1 Result Diagram: 03/20/17 0525 03/20/17 0525 Objective Remarks GENERAL: NAD, A&Ox3 SKIN: Warm and dry. HEAD: Normocephalic. EYES: No scleral icterus. No injection or drainage. NECK: Supple, trachea midline. No JVD or lymphadenopathy. CARDIOVASCULAR: Regular rate and rhythm without murmurs, gallops, or rubs. RESPIRATORY: Breath sounds equal bilaterally. No accessory muscle use. GASTROINTESTINAL: Abdomen soft, non-tender, nondistended. MUSCULOSKELETAL: No cyanosis, or edema. BACK: Nontender without obvious deformity. No CVA tenderness. A/P Problem List: (1) Streptococcal bacteremia ICD Code: R78.81 (2) NATALIA (acute kidney injury) ICD Code: N17.9 (3) Atrial flutter with rapid ventricular response ICD Code: I48.92 (4) Acute renal failure ICD Code: N17.9 (5) Biliary liver cirrhosis ICD Code: K74.5 (6) Encephalopathy ICD Code: G93.40 (7) Diabetes ICD Code: E11.9 (8) Hypocalcemia ICD Code: E83.51 Assessment and Plan Assessment and Plan 76 year old female with infective endocarditis and a prosthetic valve. Clinically improving. Hypocalcemia is worsened today and replacement is ordered along with an electrolyte screening (mag and phos). Renal function is slightly worsened, patient reports that she could improve her PO hydration and is encouraged to do so. No fevers, antibiotics are ongoing. 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 Strep Bacteremia (Strep V) Continue Rocephin Improving with antibiotics Cardiology following Latest blood cultures are negative Encephalopathy Resolved Likely was related to infectious state NATALIA Gradual worsening in the past three days Nephrology following Continue IV Hydration Follow renal function A-fib with RVR Likely a response to infection Controlled on a Diltiazem PO Follow on telemetry Continue Heparin Drip Cardiology following Anemia Shows stability through time Follow CBC No need to stop Heparin drip as long as stability remains Hyperlipidemia Statin Follow as an outpatient Biliary Cirrhosis, state IV Spironolactone continued Lasix continued Mckenna continued DM2 SSI Diabetic Diet Follow blood sugars Hypothyroidism Continue supplementation GERD Hiatal Hernia Continue PPI Follow clinically DVT Prophylaxis SCDs and Heparin drip Problem Qualifiers (1) Acute renal failure: Qualified Code: N17.9 - Acute renal failure, unspecified acute renal failure type Raimundo Kathleen MD March 20, 2017 12:00
--- NOTE | 2017-03-20 12:37 | HHI.IDPN ---
Note Infectious Disease Note Patient feels better. has loose stool when she eats in the am. No nausea. Not eating much. poor appetite. No chills, No CP. No SOB. Afebrile. Ambulated a few feet with PT. Still feels weak. 03/19 - Blood culture pending. 03/14 - Blood culture has no growth. 03/13 - Blood cultures has strep viridans. 03/12 - Blood cultures has strep viridans. 03/11 - Blood cultures has strep viridans. 03/17 - EGD procedure. No varices. Presented to emergency department on 03/11 with generalized weakness. The patient previously presented to [facility] one week ago after three days of generalized weakness and diarrhea. She was evaluated and the white blood cell count was normal and she was afebrile. PAST MEDICAL HISTORY 1. Biliary cirrhosis 2. Diabetes mellitus 3. Appendectomy 4. Hysterectomy. 5. Aortic valve replacement in 2012 with Bovine valve. 6. Gastroesophageal reflux disease 7. Bilateral cataract surgery, one was done February 2017 and the first was January 2017. ALLERGIES AMPICILLIN LEAD TO SHORTNESS OF BREATH. PATIENT ABLE TO TOLERATE AMOXICILLIN. LEVAQUIN SULFA MACROBID IODINE CONTRAST MEDIA. HEART DISEASE. ANTIBIOTICS: Ceftriaxone. SOCIAL HISTORY No tobacco use. Social alcohol use. No illicit drugs. OBJECTIVE: Vital Signs Date Time Temp Pulse Resp B/P Pulse Ox O2 Delivery O2 Flow Rate FiO2 03/20/17 10:00 58 03/20/17 09:00 60 03/20/17 08:15 97.3 64 16 108/58 94 03/20/17 08:00 56 03/20/17 07:47 95 21 03/20/17 07:00 58 03/20/17 06:42 52 03/20/17 05:00 52 03/20/17 04:00 52 03/20/17 03:00 52 03/20/17 03:00 98.2 53 16 93/57 96 03/20/17 02:00 48 03/20/17 01:00 50 03/20/17 00:00 52 03/20/17 00:00 98.3 68 16 105/53 97 03/19/17 23:00 50 03/19/17 22:00 68 03/19/17 21:00 88 03/19/17 20:05 98.1 91 16 121/50 99 03/19/17 20:00 86 03/19/17 19:00 92 03/19/17 18:12 84 03/19/17 17:58 98 21 03/19/17 17:00 55 03/19/17 16:14 63 03/19/17 15:00 98.2 58 16 110/66 98 03/19/17 15:00 57 03/19/17 14:00 71 03/19/17 13:00 68 03/19/17 03/19/17 03/20/17 15:00 23:00 07:00 Intake Total 2132 ml 1580 ml Output Total 400 ml 240 ml Balance 1732 ml 1340 ml Intake Oral 720 ml 480 ml IV Total 1412 ml 1100 ml Output Urine Total 400 ml 240 ml # Bowel Movements 1 Laboratory Tests Test 03/19/17 03/20/17 04:17 05:25 White Blood Count 9.7 TH/MM3 7.5 TH/MM3 Red Blood Count 3.46 MIL/MM3 3.01 MIL/MM3 Hemoglobin 10.0 GM/DL 9.1 GM/DL Hematocrit 30.0 % 25.8 % Mean Corpuscular Volume 86.6 FL 85.9 FL Mean Corpuscular Hemoglobin 28.8 PG 30.4 PG Mean Corpuscular Hemoglobin 33.2 % 35.4 % Concent Red Cell Distribution Width 15.7 % 16.0 % Platelet Count 119 TH/MM3 97 TH/MM3 Mean Platelet Volume 8.1 FL 7.8 FL Laboratory Tests Test 03/19/17 03/20/17 04:17 05:25 Sodium Level 138 MEQ/L 134 MEQ/L Potassium Level 4.1 MEQ/L 3.7 MEQ/L Chloride Level 106 MEQ/L 101 MEQ/L Carbon Dioxide Level 22.0 MEQ/L 22.1 MEQ/L Anion Gap 10 MEQ/L 11 MEQ/L Blood Urea Nitrogen 33 MG/DL 34 MG/DL Creatinine 3.17 MG/DL 3.64 MG/DL Estimat Glomerular Filtration 14 ML/MIN 12 ML/MIN Rate Random Glucose 127 MG/DL 162 MG/DL Calcium Level 7.0 MG/DL 6.7 MG/DL Protein Corrected Calcium 7.9 MG/DL 7.4 MG/DL Phosphorus Level 4.0 MG/DL Total Bilirubin 1.0 MG/DL Direct Bilirubin 0.7 MG/DL Indirect Bilirubin 0.3 MG/DL Aspartate Amino Transf 31 U/L (AST/SGOT) Alanine Aminotransferase 20 U/L (ALT/SGPT) Alkaline Phosphatase 158 U/L Total Protein 5.3 GM/DL 5.6 GM/DL Albumin 1.7 GM/DL Microbiology Date/Time Procedure Status Source Growth 03/19/17 12:46 Aerobic Blood Culture - Preliminary Resulted Blood Peripheral NO GROWTH IN 1 DAY 03/19/17 12:46 Anaerobic Blood Culture - Preliminary Resulted Blood Peripheral NO GROWTH IN 1 DAY 03/19/17 12:50 Aerobic Blood Culture - Preliminary Resulted Blood Peripheral NO GROWTH IN 1 DAY 03/19/17 12:50 Anaerobic Blood Culture - Preliminary Resulted Blood Peripheral NO GROWTH IN 1 DAY IMAGING: Renal Ultrasound 03/18/17 0000 Signed Impressions: Service Date/Time: Saturday, March 18, 2017 17:35 - CONCLUSION: 1. Echogenic kidneys bilaterally compatible with medical renal disease. 2. Small volume ascites Dimitrios Lopez MD Chest X-Ray 03/15/17 0600 Signed Impressions: Service Date/Time: Wednesday, March 15, 2017 04:56 - CONCLUSION: Worsening consolidation and effusion at the left lung base. Reynaldo Lazar MD Neck CTA 03/12/17 0000 Signed Impressions: Service Date/Time: Sunday, March 12, 2017 20:22 - CONCLUSION: Slight atherosclerosis of both carotid bifurcations without narrowing. Dominant left vertebral artery. Reynaldo Lazar MD Head CTA 03/12/17 0000 Signed Impressions: Service Date/Time: Sunday, March 12, 2017 20:22 - CONCLUSION: Normal intracranial arteries. Reynaldo Lazar MD Head CT 03/12/17 0000 Signed Impressions: Service Date/Time: Sunday, March 12, 2017 19:02 - CONCLUSION: Negative noncontrast head CT. Reynaldo Lazar MD PHYSICAL EXAMINATION GENERAL: Awake and alert. HEENT: No icterus. No conjunctival erythema. Oropharynx no thrush. Ecchymotic lesion at r. tip of tongue. NECK: Supple without adenopathy or swelling. No JVD. LUNGS: Decreased breath sounds same. HEART: 3/6 blowing systolic ejection murmur at the left sternal border and also at the upper right sternal border. ABDOMEN: Bowel sounds present, soft, no tenderness. EXTREMITIES: No clubbing or cyanosis. Ecchymosis of the hands. Edema at the forearms at IV sites. No peripheral embolic lesions. NEUROLOGIC: Nonfocal. SKIN: No diffuse rash. Dry. PSYCHIATRIC: The patient is calm and cooperative. IMPRESSION 1. Bacteremia due to Viridans Strep. 2. Bioprosthetic aortic valve endocarditis. 3. Sepsis. 4. Altered mental status secondary to Sepsis. Resolved. 5. Leukocytosis. Improved. 6. Acute kidney disease. Worsening kidney function. Probably related to aminoglycoside/dehydration. Given the presence of vegetation she is at risk of complications such as valve malfunction and emboli. RECOMMENDATIONS 1. Continue Ceftriaxone. 2. Monitor repeat blood cultures. 3. Follow renal function. 4. Monitor clinical status. Edwin Harrison MD March 20, 2017 12:37
[2017-03-20] MEDS: cefTRIAXone INJ 2,000 MG in SODIUM CHLORIDE 0.9% INJ 100 ML IV SCH (14:07)
[2017-03-20] MEDS: BUMETANIDE INJ 1 MG/4 ML VIAL IV PUSH SCH (18:00)
[2017-03-20] MEDS: ATORVASTATIN 10 MG TAB PO SCH (22:34)
[2017-03-20] MEDS: ACETAMINOPHEN/HYDROcodone 325 MG/5 MG TAB PO PRN (22:35)
[2017-03-21] VITALS (25 sets, daily range): BP systolic 96–113; BP diastolic 50–65; PULSE 48–89; RESP 16–18; TEMP 97.6–98.9; O2SAT 93–96
[2017-03-21] MEDS: ALBUMIN HUMAN 25% 25 GM/100 ML BAGP IV SCH ×2 (01:15→08:41)
[2017-03-21] MEDS: CHLORHEXIDINE GLUCONATE 2 % 1 PACK (2 CLOTHS) TOP SCH (04:00)
[2017-03-21] MEDS: LEVOTHYROXINE SODIUM 75 MCG TAB PO SCH (06:00)
[2017-03-21] MEDS: INSULIN ASPART SUPPLEMENTAL SCALE SQ SCH ×4 (07:00→21:00)
[2017-03-21 07:04] LABS: AUTOMATED NEUTROPHIL # 7.1 TH/MM3 (1.8-7.7); BASOPHIL % 0.1 % (0.0-2.0); EOSINOPHIL % 0.4 % (0.0-4.0); HEMATOCRIT 27.4 % (35.0-46.0); LYMPH % 10.7 % (9.0-44.0); LYMPHOCYTE # 0.9 TH/MM3 (1.0-4.8); MEAN CELL VOLUME 86.7 FL (80.0-100.0); MEAN CORPUSCULAR HGB CONC 33.4 % (32.0-36.0); MONO % 4.6 % (0.0-8.0); NEUT % 84.2 % (16.0-70.0); PLATELET COUNT 97 TH/MM3 (150-450); RED BLOOD COUNT 3.16 MIL/MM3 (4.00-5.30); RED CELL DISTRIBUTION WIDTH 16.1 % (11.6-17.2); WHITE BLOOD COUNT 8.5 TH/MM3 (4.0-11.0)
[2017-03-21 07:16] LABS: APTT (PATIENT) 46.4 SEC (24.3-30.1); INTERNATIONAL NORMALIZED RATIO 1.1 RATIO; PROTHROMBIN TIME - PATIENT 12.6 SEC (9.8-11.6)
[2017-03-21 07:21] LABS: HEMO FLAGS AUTO DIFF
[2017-03-21 07:39] LABS: BICARBONATE 25.2 MEQ/L (21.0-32.0); CALCIUM-PROTEIN CORRECTED 7.9 MG/DL (8.5-10.1); POTASSIUM 3.4 MEQ/L (3.5-5.1); TOTAL BILIRUBIN ADULT 1.1 MG/DL (0.2-1.0)
[2017-03-21 08:13] LABS: PLATELET ESTIMATE SMEAR LOW (NORMAL); PLATELET MORPHOLOGY NORMAL (NORMAL); SCAN/DIFF AUTO DIFF CONFIRMED
[2017-03-21] MEDS: HEPARIN-D5W INJ 250 ML IV SCH (08:42)
[2017-03-21] MEDS: INSULIN DETEMIR 100 UNITS/ML VIAL SQ SCH (08:42)
[2017-03-21] MEDS: SODIUM CHLORIDE 0.9% FLUSH 10 ML FLUSH IVF SCH (09:00)
[2017-03-21] MEDS: DOCUSATE SODIUM 100 MG CAP PO SCH ×2 (09:00→21:00)
[2017-03-21] MEDS: SENNOSIDES 8.6 MG TAB PO SCH ×2 (09:00→21:00)
[2017-03-21] MEDS: ONDANSETRON HCL 4 MG/2 ML VIAL IV PRN ×2 (09:38→14:29)
[2017-03-21] MEDS: URSODIOL PO SCH ×2 (09:40→22:13)
[2017-03-21] MEDS: MULTIVITAMIN TAB PO SCH (09:40)
[2017-03-21] MEDS: CALCIUM CARBONATE 1.25 GM (CA 500 MG) TAB PO SCH ×3 (09:40→18:08)
[2017-03-21] MEDS: DILTIAZEM HCL 60 MG TAB PO SCH ×3 (09:40→18:08)
[2017-03-21] MEDS: BUMETANIDE INJ 1 MG/4 ML VIAL IV PUSH SCH ×2 (09:41→17:58)
[2017-03-21] MEDS: SODIUM CHLORIDE 0.9% FLUSH 10 ML FLUSH IV FLUSH SCH ×2 (09:41→22:19)
--- NOTE | 2017-03-21 09:54 | RADRPT ---
EXAM DATE/TIME: 03/21/2017 09:16 [place] COMPARISON: CHEST SINGLE AP, March 15, 2017, 4:56. INDICATIONS : Shortness of breath. MEDICAL HISTORY : Hypertension. Diabetes mellitus type II. Congestive heart failure. SURGICAL HISTORY : Hiatal hernia. ENCOUNTER: Initial ACUITY: 1 day PAIN SCORE: 0/10 LOCATION: Bilateral chest FINDINGS: Portable AP view of the chest demonstrates cardiac silhouette size at the upper limits for normal in this patient post median sternotomy. There are abnormal pleural parenchymal opacities in the mid and lower lung zones bilaterally, increased from the prior study. No pneumothorax is identified. CONCLUSION: Bibasilar opacities characteristic of pleural effusions with associated volume loss and/or consolidat ion. The perihilar interstitial opacities are suggestive of pulmonary edema. Reynaldo Higgins MD on March 21, 2017 at 9:51 Board Certified Radiologist. This report was verified electronically.
[2017-03-21] MEDS ORDERED: SODIUM CHLOR 0.9% 1000 ML INJ 1,000 ML IV PRN (11:22)
--- NOTE | 2017-03-21 11:29 | HHI.NPPN ---
Subjective History of Present Illness 76 Year old W Female with ARF, Biliary Cirrhosis, streptococcus Viridans sepsis Review of Systems General Constitutional: Fatigue Objective Data Data 03/20/17 03/21/17 19:00 07:00 Intake Total 552 ml Output Total 330 ml Balance 222 ml Intake Oral 240 ml IV Total 240 ml Other 72 ml Output Urine Total 330 ml # Voids 1 # Bowel Movements 1 Vital Signs Date Time Temp Pulse Resp B/P Pulse Ox O2 Delivery O2 Flow Rate FiO2 03/21/17 09:58 21 03/21/17 07:00 98.0 57 18 110/65 96 03/21/17 06:00 78 03/21/17 05:15 98.9 50 16 97/54 96 03/21/17 05:00 56 03/21/17 04:00 54 03/21/17 03:00 55 03/21/17 02:00 53 03/21/17 01:00 54 03/21/17 01:00 98.9 76 16 96/62 93 03/21/17 00:00 52 03/20/17 23:00 56 03/20/17 22:00 48 03/20/17 21:00 52 03/20/17 21:00 98.9 61 16 109/49 88 03/20/17 20:00 56 03/20/17 19:36 21 03/20/17 19:00 74 03/20/17 16:00 97.6 59 16 109/55 97 03/20/17 16:00 52 03/20/17 15:00 50 03/20/17 14:10 67 03/20/17 14:00 52 03/20/17 13:00 54 03/20/17 12:30 97.8 55 16 104/43 96 03/20/17 12:00 54 -: 03/21/17 0525 03/21/17 0525 Physical Exam General Appearance: Well Developed Neck Neck Exam: Neck Supple Pulmonary Resp Exam: Clear Bilaterally Cardiology CV Exam: Irregular Gastrointestinal/Abdomen GI Exam: Soft, Non-Tender, Bowel Sounds Present Extremeties Extremities Exam: No Edema Assessment/Plan Problem List: (1) Acute renal failure Plan: This is ARF Cr creatinine is worse dialysis explained to patient need a Vascath and procedure explained to her orders given as agreed CXR pulmonary edema K low replace follow BMP She did have CTA with last week of February however her creatinine was 0.5 on 15 of March (2) Streptococcal bacteremia Plan: Infectious disease is following she is on broad-spectrum antibiotic ceftriaxone (3) Atrial flutter with rapid ventricular response Plan: On diltiazem (4) Biliary liver cirrhosis Plan: Follows with GI Problem Qualifiers (1) Acute renal failure: Qualified Code: N17.9 - Acute renal failure, unspecified acute renal failure type Molly Peng MD March 21, 2017 11:28
[2017-03-21] MEDS ORDERED: diphenhydrAMINE HCL 25 MG CAP PO PRN (11:30)
[2017-03-21] MEDS ORDERED: SODIUM CHLORIDE 0.9% FLUSH 10 ML FLUSH IV FLUSH PRN (11:30)
[2017-03-21] MEDS ORDERED: MANNITOL 12.5 GM/50 ML VIAL IV PRN (11:30)
[2017-03-21] MEDS ORDERED: ACETAMINOPHEN 325 MG TAB PO PRN (11:30)
[2017-03-21] MEDS ORDERED: GELATIN 12 MM/7 MM FOAM TOP PRN (11:30)
[2017-03-21] MEDS ORDERED: NITROGLYCERIN 0.4 MG SL 25 TABS/BTL SL PRN (11:30)
[2017-03-21] MEDS ORDERED: HEPARIN SODIUM - IV 10,000 UNITS/10 ML VIAL IVF PRN (11:30)
[2017-03-21] MEDS ORDERED: ALBUMIN HUMAN 25% 25 GM/100 ML BAGP IV PRN (11:30)
[2017-03-21] MEDS ORDERED: ONDANSETRON HCL 4 MG/2 ML VIAL IV PRN (11:30)
[2017-03-21] MEDS ORDERED: cloNIDine HCL 0.1 MG TAB PO PRN (11:30)
[2017-03-21] MEDS ORDERED: POTASSIUM CHLORIDE 20 MEQ CONTROLLED RELEASE TAB PO ONE (11:30)
--- NOTE | 2017-03-21 12:13 | HHI.IDPN ---
Note Infectious Disease Note Patient feels okay. Sitting up in chair. No nausea. No chills, No CP. Was SOB last night. No SOB currently. Afebrile. Renal function remains poor. HR was low this am and Cardizem was held. 03/19 - Blood culture no growth x 2 days. 03/14 - Blood culture has no growth. 03/13 - Blood cultures has strep viridans. 03/12 - Blood cultures has strep viridans. 03/11 - Blood cultures has strep viridans. 03/17 - EGD procedure. No varices. Presented to emergency department on 03/11 with generalized weakness. The patient previously presented to [facility] one week ago after three days of generalized weakness and diarrhea. She was evaluated and the white blood cell count was normal and she was afebrile. PAST MEDICAL HISTORY 1. Biliary cirrhosis 2. Diabetes mellitus 3. Appendectomy 4. Hysterectomy. 5. Aortic valve replacement in 2012 with Bovine valve. 6. Gastroesophageal reflux disease 7. Bilateral cataract surgery, one was done February 2017 and the first was January 2017. ALLERGIES AMPICILLIN LEAD TO SHORTNESS OF BREATH. PATIENT ABLE TO TOLERATE AMOXICILLIN. LEVAQUIN SULFA MACROBID IODINE CONTRAST MEDIA. HEART DISEASE. ANTIBIOTICS: Ceftriaxone. SOCIAL HISTORY No tobacco use. Social alcohol use. No illicit drugs. OBJECTIVE: Vital Signs Date Time Temp Pulse Resp B/P Pulse Ox O2 Delivery O2 Flow Rate FiO2 03/21/17 09:58 21 03/21/17 07:00 98.0 57 18 110/65 96 03/21/17 06:00 78 03/21/17 05:15 98.9 50 16 97/54 96 03/21/17 05:00 56 03/21/17 04:00 54 03/21/17 03:00 55 03/21/17 02:00 53 03/21/17 01:00 54 03/21/17 01:00 98.9 76 16 96/62 93 03/21/17 00:00 52 03/20/17 23:00 56 03/20/17 22:00 48 03/20/17 21:00 52 03/20/17 21:00 98.9 61 16 109/49 88 03/20/17 20:00 56 03/20/17 19:36 21 03/20/17 19:00 74 03/20/17 16:00 97.6 59 16 109/55 97 03/20/17 16:00 52 03/20/17 15:00 50 03/20/17 14:10 67 03/20/17 14:00 52 03/20/17 13:00 54 03/20/17 12:30 97.8 55 16 104/43 96 03/20/17 03/20/17 03/21/17 15:00 23:00 07:00 Intake Total 552 ml Output Total 330 ml Balance 222 ml Intake Oral 240 ml IV Total 240 ml Other 72 ml Output Urine Total 330 ml # Voids 1 # Bowel Movements 1 Laboratory Tests Test 03/20/17 03/21/17 05:25 05:25 White Blood Count 7.5 TH/MM3 8.5 TH/MM3 Red Blood Count 3.01 MIL/MM3 3.16 MIL/MM3 Hemoglobin 9.1 GM/DL 9.2 GM/DL Hematocrit 25.8 % 27.4 % Mean Corpuscular Volume 85.9 FL 86.7 FL Mean Corpuscular Hemoglobin 30.4 PG 29.0 PG Mean Corpuscular Hemoglobin 35.4 % 33.4 % Concent Red Cell Distribution Width 16.0 % 16.1 % Platelet Count 97 TH/MM3 97 TH/MM3 Mean Platelet Volume 7.8 FL 7.8 FL Neutrophils (%) (Auto) 84.2 % Lymphocytes (%) (Auto) 10.7 % Monocytes (%) (Auto) 4.6 % Eosinophils (%) (Auto) 0.4 % Basophils (%) (Auto) 0.1 % Neutrophils # (Auto) 7.1 TH/MM3 Lymphocytes # (Auto) 0.9 TH/MM3 Monocytes # (Auto) 0.4 TH/MM3 Eosinophils # (Auto) 0.0 TH/MM3 Basophils # (Auto) 0.0 TH/MM3 CBC Comment AUTO DIFF Differential Comment AUTO DIFF CONFIRMED Platelet Estimate LOW Platelet Morphology Comment NORMAL Red Cell Morphology Comment NORMAL Laboratory Tests Test 03/20/17 03/21/17 05:25 05:25 Sodium Level 134 MEQ/L 135 MEQ/L Potassium Level 3.7 MEQ/L 3.4 MEQ/L Chloride Level 101 MEQ/L 99 MEQ/L Carbon Dioxide Level 22.1 MEQ/L 25.2 MEQ/L Anion Gap 11 MEQ/L 11 MEQ/L Blood Urea Nitrogen 34 MG/DL 32 MG/DL Creatinine 3.64 MG/DL 3.78 MG/DL Estimat Glomerular Filtration 12 ML/MIN 12 ML/MIN Rate Random Glucose 162 MG/DL 50 MG/DL Calcium Level 6.7 MG/DL 7.4 MG/DL Protein Corrected Calcium 7.4 MG/DL 7.9 MG/DL Total Protein 5.6 GM/DL 6.2 GM/DL Phosphorus Level 3.8 MG/DL Magnesium Level 2.0 MG/DL Total Bilirubin 1.1 MG/DL Aspartate Amino Transf 20 U/L (AST/SGOT) Alanine Aminotransferase 12 U/L (ALT/SGPT) Alkaline Phosphatase 117 U/L Albumin 3.5 GM/DL Microbiology Date/Time Procedure Status Source Growth 03/19/17 12:46 Aerobic Blood Culture - Preliminary Resulted Blood Peripheral NO GROWTH IN 2 DAYS 03/19/17 12:46 Anaerobic Blood Culture - Preliminary Resulted Blood Peripheral NO GROWTH IN 2 DAYS 03/19/17 12:50 Aerobic Blood Culture - Preliminary Resulted Blood Peripheral NO GROWTH IN 2 DAYS 03/19/17 12:50 Anaerobic Blood Culture - Preliminary Resulted Blood Peripheral NO GROWTH IN 2 DAYS IMAGING: Chest X-Ray 03/21/17 0000 Signed Impressions: Service Date/Time: Tuesday, March 21, 2017 09:16 - CONCLUSION: Bibasilar opacities characteristic of pleural effusions with associated volume loss and/or consolidation. The perihilar interstitial opacities are suggestive of pulmonary edema. Reynaldo Higgins MD Renal Ultrasound 03/18/17 0000 Signed Impressions: Service Date/Time: Saturday, March 18, 2017 17:35 - CONCLUSION: 1. Echogenic kidneys bilaterally compatible with medical renal disease. 2. Small volume ascites Dimitrios Lopez MD Chest X-Ray 03/15/17 0600 Signed Impressions: Service Date/Time: Wednesday, March 15, 2017 04:56 - CONCLUSION: Worsening consolidation and effusion at the left lung base. Reynaldo Lazar MD Neck CTA 03/12/17 0000 Signed Impressions: Service Date/Time: Sunday, March 12, 2017 20:22 - CONCLUSION: Slight atherosclerosis of both carotid bifurcations without narrowing. Dominant left vertebral artery. Reynaldo Lazar MD Head CTA 03/12/17 0000 Signed Impressions: Service Date/Time: Sunday, March 12, 2017 20:22 - CONCLUSION: Normal intracranial arteries. Reynaldo Lazar MD Head CT 03/12/17 0000 Signed Impressions: Service Date/Time: Sunday, March 12, 2017 19:02 - CONCLUSION: Negative noncontrast head CT. Reynaldo Lazar MD PHYSICAL EXAMINATION GENERAL: Awake and alert. HEENT: No icterus. No conjunctival erythema. Oropharynx no thrush. Ecchymotic lesion at r. tip of tongue. NECK: Supple without adenopathy or swelling. No JVD. LUNGS: Decreased breath sounds. HEART: 3/6 blowing systolic ejection murmur at the left sternal border and also at the upper right sternal border. ABDOMEN: Bowel sounds present, soft, no tenderness. EXTREMITIES: No clubbing or cyanosis. Ecchymosis of the hands. Edema at the forearms at IV sites. No peripheral embolic lesions. NEUROLOGIC: Nonfocal. SKIN: No diffuse rash. PSYCHIATRIC: The patient is calm and cooperative. IMPRESSION 1. Bacteremia due to Viridans Strep. 2. Bioprosthetic aortic valve endocarditis. 3. Sepsis. strep viridans group. 4. Altered mental status secondary to Sepsis. Resolved. 5. Leukocytosis. Improved. 6. Acute kidney disease. Worsening kidney function. Probably related to aminoglycoside/dehydration. Given the presence of vegetation she is at risk of complications such as valve malfunction and emboli. 7. Multiple antibiotic allergies. 8. CHF. RECOMMENDATIONS 1. Continue Ceftriaxone. 2. Monitor repeat blood cultures. 3. Follow renal function. Plan for dialysis. Discussed with Dr. Peng. 4. Monitor clinical status. Dr Aislinn Uriarte covering this weekend. Please call if input is needed. Edwin Harrison MD March 21, 2017 12:13
--- NOTE | 2017-03-21 12:23 | HHI.PR ---
Subjective Remarks Dyspnea overnight. Hypoglycemia this morning. Nausea is present. No other complaints. Chest x-ray shows pulmonary edema and small pleural effusions. Blood sugars resolved with juice (insulin adjusted). Objective Vital Signs Date Time Temp Pulse Resp B/P Pulse Ox O2 Delivery O2 Flow Rate FiO2 03/21/17 09:58 21 03/21/17 07:00 98.0 57 18 110/65 96 03/21/17 06:00 78 03/21/17 05:15 98.9 50 16 97/54 96 03/21/17 05:00 56 03/21/17 04:00 54 03/21/17 03:00 55 03/21/17 02:00 53 03/21/17 01:00 54 03/21/17 01:00 98.9 76 16 96/62 93 03/21/17 00:00 52 03/20/17 23:00 56 03/20/17 22:00 48 03/20/17 21:00 52 03/20/17 21:00 98.9 61 16 109/49 88 03/20/17 20:00 56 03/20/17 19:36 21 03/20/17 19:00 74 03/20/17 16:00 97.6 59 16 109/55 97 03/20/17 16:00 52 03/20/17 15:00 50 03/20/17 14:10 67 03/20/17 14:00 52 03/20/17 13:00 54 03/20/17 12:30 97.8 55 16 104/43 96 I/O 03/20/17 03/20/17 03/20/17 03/21/17 03/21/17 03/21/17 07:00 15:00 23:00 07:00 15:00 23:00 Intake Total 1580 ml 552 ml Output Total 240 ml 330 ml Balance 1340 ml 222 ml Intake Oral 480 ml 240 ml IV Total 1100 ml 240 ml Other 72 ml Output Urine Total 240 ml 330 ml # Voids 1 # Bowel Movements 1 1 Result Diagram: 03/21/17 0525 03/21/17 0525 Imaging Last Impressions Chest X-Ray 03/21/17 0000 Signed Impressions: Service Date/Time: Tuesday, March 21, 2017 09:16 - CONCLUSION: Bibasilar opacities characteristic of pleural effusions with associated volume loss and/or consolidation. The perihilar interstitial opacities are suggestive of pulmonary edema. Reynaldo Higgins MD Renal Ultrasound 03/18/17 0000 Signed Impressions: Service Date/Time: Saturday, March 18, 2017 17:35 - CONCLUSION: 1. Echogenic kidneys bilaterally compatible with medical renal disease. 2. Small volume ascites Dimitrios Lopez MD Neck CTA 03/12/17 0000 Signed Impressions: Service Date/Time: Sunday, March 12, 2017 20:22 - CONCLUSION: Slight atherosclerosis of both carotid bifurcations without narrowing. Dominant left vertebral artery. Reynaldo Lazar MD Head CTA 03/12/17 0000 Signed Impressions: Service Date/Time: Sunday, March 12, 2017 20:22 - CONCLUSION: Normal intracranial arteries. Reynaldo Lazar MD Head CT 03/12/17 0000 Signed Impressions: Service Date/Time: Sunday, March 12, 2017 19:02 - CONCLUSION: Negative noncontrast head CT. Reynaldo Lazar MD Objective Remarks GENERAL: NAD, A&Ox3 SKIN: Warm and dry. HEAD: Normocephalic. EYES: No scleral icterus. No injection or drainage. NECK: Supple, trachea midline. No JVD or lymphadenopathy. CARDIOVASCULAR: Regular rate and rhythm without murmurs, gallops, or rubs. RESPIRATORY: Breath sounds equal bilaterally. No accessory muscle use. GASTROINTESTINAL: Abdomen soft, non-tender, nondistended. MUSCULOSKELETAL: No cyanosis, or edema. BACK: Nontender without obvious deformity. No CVA tenderness. Medications and IVs Administered Medications Medications (Trade) Dose Ordered Sig/Tunde Route PRN Reason Start Time Stop Time Status Last Admin Dose Admin Atorvastatin Calcium (Lipitor) 10 mg HS PO 03/12/17 21:00 03/20/17 22:34 Levothyroxine Sodium (Synthroid) 75 mcg DAILY@06 PO 03/14/17 06:00 03/20/17 06:43 Sodium Chloride (NS Flush) DAILY IVF 03/13/17 09:00 03/18/17 09:22 Sodium Chloride (NS Flush) UNSCH PRN IVF SEE PROTOCOL 03/13/17 08:00 03/14/17 09:13 Sodium Chloride (NS Flush) 2 ml UNSCH PRN IV FLUSH FLUSH AFTER USING IV ACCESS 03/13/17 08:30 03/14/17 09:13 Sodium Chloride (NS Flush) 2 ml BID IV FLUSH 03/13/17 09:00 03/21/17 09:41 Acetaminophen (Tylenol) 650 mg Q6H PRN PO PAIN 1-2 AND/OR FEVER >101F 03/13/17 08:30 03/14/17 21:41 Acetaminophen/ Hydrocodone Bitart (Seiling 5-325 Mg) 1 tab Q4H PRN PO PAIN SCALE 3 TO 5 03/13/17 08:30 03/20/17 22:35 Ondansetron HCl (Zofran Inj) 4 mg Q6H PRN IV NAUSEA OR VOMITING 03/13/17 08:30 03/21/17 09:38 Docusate Sodium (Colace) 100 mg BID PO 03/13/17 09:00 03/15/17 09:42 Miscellaneous Information 1 Q361D XX 03/13/17 08:30 03/14/17 09:14 Chlorhexidine Gluconate (Chlorhexidine 2% Cloth) Taper DAILY@04 TOP 03/14/17 04:00 03/10/18 03:59 03/19/17 00:04 Multivitamins 1 tab 1 tab DAILY PO 03/13/17 11:30 03/21/17 09:40 Ceftriaxone Sodium 2000 mg/ Sodium Chloride 100 ml @ 200 mls/hr Q24H IV 03/14/17 13:00 03/20/17 14:07 Heparin Sodium/ Dextrose (Heparin-D5W Inj) 250 ml @ 0 mls/hr TITRATE IV 03/14/17 20:45 03/21/17 08:42 Dextrose (D50w (Vial) Inj) 25 ml UNSCH PRN IV PUSH HYPOGLYCEMIA-SEE COMMENTS 03/15/17 08:15 03/17/17 11:35 Patient Own Medication PT OWN MED: Ursod... BID PO 03/15/17 13:00 03/21/17 09:40 Diltiazem HCl (Cardizem) 60 mg TID PO 03/19/17 18:00 03/21/17 09:40 Calcium Carbonate (Oscal) 1,000 mg TID PO 03/20/17 09:00 03/21/17 09:40 Bumetanide (Bumex Inj) 1 mg BID@09,18 IV PUSH 03/20/17 18:00 03/21/17 09:41 A/P Problem List: (1) Streptococcal bacteremia ICD Code: R78.81 (2) NATALIA (acute kidney injury) ICD Code: N17.9 (3) Atrial flutter with rapid ventricular response ICD Code: I48.92 (4) Acute renal failure ICD Code: N17.9 (5) Biliary liver cirrhosis ICD Code: K74.5 (6) Encephalopathy ICD Code: G93.40 (7) Diabetes ICD Code: E11.9 (8) Hypocalcemia ICD Code: E83.51 Assessment and Plan Assessment and Plan 76 year old female with infective endocarditis and a prosthetic valve. Clinically improving. Hypocalcemia is improved today. Renal function appears relatively stable. A chest x-ray was ordered to evaluate her SOB overnight, of which an evaluation/reading shows pulmonary edema and mild pleural effusions. She had her insulin adjusted down to 10 units QHS (halved). 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 Strep Bacteremia (Strep V) Continue Rocephin Improving with antibiotics Cardiology following Latest blood cultures are negative Encephalopathy Resolved Likely was related to infectious state NATALIA Gradual worsening in the past three days Nephrology following Continue IV Hydration Follow renal function A-fib with RVR Likely a response to infection Controlled on a Diltiazem PO Follow on telemetry Continue Heparin Drip Cardiology following Anemia Shows stability through time Follow CBC No need to stop Heparin drip as long as stability remains Hyperlipidemia Statin Follow as an outpatient Biliary Cirrhosis, state IV Spironolactone continued Lasix continued Mckenna continued DM2 SSI Diabetic Diet Follow blood sugars Hypothyroidism Continue supplementation GERD Hiatal Hernia Continue PPI Follow clinically DVT Prophylaxis SCDs and Heparin drip Problem Qualifiers (1) Acute renal failure: Qualified Code: N17.9 - Acute renal failure, unspecified acute renal failure type Raimundo Kathleen MD March 21, 2017 12:23
[2017-03-21] MEDS: cefTRIAXone INJ 2,000 MG in SODIUM CHLORIDE 0.9% INJ 100 ML IV SCH (13:00)
[2017-03-21] MEDS ORDERED: LORazepam 2 MG/ML VIAL ONE (14:11)
--- NOTE | 2017-03-21 14:56 | PD.RAD ---
Post Procedure Progress Note Pre Procedure Diagnosis: (1) NATALIA (acute kidney injury) Post Procedure Diagnosis: (1) NATALIA (acute kidney injury) Procedure Date: March 21, 2017 Supervising Radiologist: Denton Parker JR Proceduralist/Assist: Libra Calloway RT(R), Carmne Kam RT(R)() Anesthesia: Local Plan of Activity Patient to Unit: Nursing Unit Patient Condition: Good See PACS Report for procedural detail/treatment Central Venous Access Device Procedure 1 Right Internal Jugular Hemodialysis Catheter Non-Tunneled Placement dual lumen Setswana: 14 Findings: Vascath in good position and functions well. OK to use Jr. Parker Thomas Justin MD March 21, 2017 14:56
[2017-03-21] MEDS ORDERED: HEPARIN SODIUM - IV 2,000 UNITS/2 ML VIAL IV FLUSH PRN (15:00)
[2017-03-21] MEDS ORDERED: SODIUM CHLORIDE 0.9% FLUSH 10 ML FLUSH IVF PRN (15:00)
--- NOTE | 2017-03-21 15:20 | RADRPT ---
EXAM DATE/TIME: 03/21/2017 14:31 [facility] COMPARISON: No previous studies available for comparison. INDICATIONS : Patient with acute renal failure in need of dialysis catheter placement. MEDICAL HISTORY : Endocarditis, A-Fib, HLD, HTN, Diabetes, CHF, Severe aortic stenosis, Biliary cirrhosis, GERD SURGICAL HISTORY : Aortic valve replacement with bovine valve, Appendectomy, Cholecystectomy, Vein stripping ENCOUNTER: Initial ACUITY: 1 week PAIN SCORE: 0/10 FLUORO TIME: 0.6 minutes IMAGE SERIES: 1 ACCESS: Right internal jugular vein DEVICE(S): 1.) 14 [place] dual lumen 15 cm Schon catheter PROCEDURE : 1. Ultrasound guided venipuncture. 2. Fluoroscopic guidance. 3. Central line placement. The risks, benefits and alternatives to the procedure were explained and verbal and written consent w as obtained. The site was prepped in sterile fashion. Full sterile technique was used, including ca p, mask, sterile gloves and gown and a large sterile sheet. Hand hygiene and 2% chlorhexidine prep w as utilized per protocol for cutaneous antisepsis with appropriate dry time for site. The skin and subcutaneous tissues were infiltrated with local anesthetic solution. A suitable site a yung the vein was selected with ultrasound and fluoroscopic guidance. A small incision was made. Th e vein was accessed under direct ultrasound visualization using the micropuncture technique. The arnulfo ropuncture set was exchanged for a 0.035 wire. The tract was dilated. The catheter was advanced int o position under direct fluoroscopic visualization. The catheter was fixed in place with suture and a sterile dressing was applied. The patient tolerated the procedure well and there were no complications. CONCLUSION: Uncomplicated line placement as above. Denton Parker Jr., MD on March 21, 2017 at 15:17 Board Certified Radiologist. This report was verified electronically.
[2017-03-21] MEDS: EPOETIN ALFA 10,000 UNITS/ML VIAL IV PRN (16:32)
[2017-03-21] MEDS: GENTAMICIN SULFATE (DIALYSIS USE ONLY) 20 MG/2 ML VIAL IV PRN (16:33)
[2017-03-21] MEDS ORDERED: INSULIN DETEMIR 100 UNITS/ML VIAL SQ SCH (21:00)
[2017-03-21] MEDS: ATORVASTATIN 10 MG TAB PO SCH (22:14)
[2017-03-21] MEDS: ACETAMINOPHEN/HYDROcodone 325 MG/5 MG TAB PO PRN (22:14)
[2017-03-22] VITALS (27 sets, daily range): BP systolic 101–129; BP diastolic 50–77; PULSE 50–106; RESP 16; TEMP 96.8–99; O2SAT 94–99
[2017-03-22 01:13] LABS: APTT (PATIENT) 47.7 SEC (24.3-30.1)
[2017-03-22] MEDS: CHLORHEXIDINE GLUCONATE 2 % 1 PACK (2 CLOTHS) TOP SCH (04:00)
[2017-03-22] MEDS: LEVOTHYROXINE SODIUM 75 MCG TAB PO SCH (06:00)
[2017-03-22] MEDS: INSULIN ASPART SUPPLEMENTAL SCALE SQ SCH ×3 (07:00→16:00)
[2017-03-22 07:40] LABS: HEMATOCRIT 26.3 % (35.0-46.0); MEAN CELL VOLUME 86.5 FL (80.0-100.0); MEAN CORPUSCULAR HEMOGLOBIN 29.4 PG (27.0-34.0); PLATELET COUNT 82 TH/MM3 (150-450); RED BLOOD COUNT 3.04 MIL/MM3 (4.00-5.30); RED CELL DISTRIBUTION WIDTH 16.6 % (11.6-17.2); WHITE BLOOD COUNT 8.6 TH/MM3 (4.0-11.0)
[2017-03-22 07:51] LABS: REVIEW FLAG FINAL
[2017-03-22 07:53] LABS: APTT (PATIENT) 67.2 SEC (24.3-30.1)
[2017-03-22 08:11] LABS: BICARBONATE 27.7 MEQ/L (21.0-32.0); POTASSIUM 3.8 MEQ/L (3.5-5.1)
[2017-03-22] MEDS: SODIUM CHLORIDE 0.9% FLUSH 10 ML FLUSH IV FLUSH SCH ×2 (09:00→21:00)
[2017-03-22] MEDS: SODIUM CHLORIDE 0.9% FLUSH 10 ML FLUSH IVF SCH (09:00)
[2017-03-22] MEDS: MULTIVITAMIN TAB PO SCH (09:00)
[2017-03-22] MEDS: SENNOSIDES 8.6 MG TAB PO SCH ×2 (09:00→21:00)
[2017-03-22] MEDS: DOCUSATE SODIUM 100 MG CAP PO SCH ×2 (09:00→21:00)
[2017-03-22] MEDS: CALCIUM CARBONATE 1.25 GM (CA 500 MG) TAB PO SCH ×3 (11:01→16:59)
[2017-03-22] MEDS: DILTIAZEM HCL 60 MG TAB PO SCH ×3 (11:02→16:59)
[2017-03-22] MEDS: URSODIOL PO SCH ×2 (11:02→22:20)
[2017-03-22] MEDS: BUMETANIDE INJ 1 MG/4 ML VIAL IV PUSH SCH ×2 (11:03→16:59)
--- NOTE | 2017-03-22 11:39 | HHI.NPPN ---
Subjective History of Present Illness 76 Year old W Female with ARF, Biliary Cirrhosis, streptococcus Viridans sepsis Additional Remarks Patient is alert, feeling better after the HD yesterday, not eating well. Review of Systems General Constitutional: Fatigue Objective Data Data 03/21/17 03/22/17 19:00 07:00 Output Total 1650 ml Balance -1650 ml Output Urine Total 150 ml Hemodialysis 1500 ml Vital Signs Date Time Temp Pulse Resp B/P Pulse Ox O2 Delivery O2 Flow Rate FiO2 03/22/17 06:00 89 03/22/17 05:56 98.4 69 16 101/77 98 03/22/17 05:00 89 03/22/17 04:00 89 03/22/17 03:00 89 03/22/17 02:00 89 03/22/17 01:33 99.0 64 16 103/50 96 03/22/17 01:00 89 03/22/17 00:00 89 03/21/17 23:00 89 03/21/17 22:29 98.3 64 16 113/59 96 03/21/17 22:00 89 03/21/17 21:00 89 03/21/17 20:00 89 03/21/17 19:00 89 03/21/17 18:30 89 03/21/17 17:59 98.0 79 18 99/50 95 03/21/17 17:27 93 21 03/21/17 12:01 58 03/21/17 12:00 60 03/21/17 12:00 97.6 71 18 105/54 93 -: 03/22/17 0628 03/22/17 0628 Physical Exam General Appearance: No Acute Distress, Comfortable, Anxious Neck Neck Exam: Neck Supple Pulmonary Resp Exam: Breath Sounds Equal, No Distress, Rhonchi, Decreased Bases Cardiology CV Exam: Irregular Gastrointestinal/Abdomen GI Exam: Soft, Non-Tender, Bowel Sounds Present Extremeties Extremities Exam: Trace Edema Neurologic Neuro Exam: Alert, Awake, Oriented Psychiatric Psych Exam: Appropriate Responses Assessment/Plan Problem List: (1) Acute renal failure Plan: This is ARF Creatinine was worse and started on dialysis. explained to patient need a Vascath and procedure explained to her Non oliguric, on Bumex. HD will be again today. Watch for renal recovery. Avoid Nephrotoxins. (2) Streptococcal bacteremia Plan: Infectious disease is following she is on broad-spectrum antibiotic ceftriaxone (3) Atrial flutter with rapid ventricular response Plan: On diltiazem (4) Biliary liver cirrhosis Plan: Follows with GI Problem Qualifiers (1) Acute renal failure: Qualified Code: N17.9 - Acute renal failure, unspecified acute renal failure type Maribel Sherman MD March 22, 2017 11:39
[2017-03-22] MEDS: cefTRIAXone INJ 2,000 MG in SODIUM CHLORIDE 0.9% INJ 100 ML IV SCH (12:25)
--- NOTE | 2017-03-22 14:48 | HHI.PR ---
Subjective Remarks Dialysis started yesterday. Renal lab findings have improved on dialysis and patient is feeling better and has resolution of her nausea. Serum calcium levels are slowly improving with supplementation. Serum sodium levels have corrected. There was another hypoglycemia episode this morning. Objective Vital Signs Date Time Temp Pulse Resp B/P Pulse Ox O2 Delivery O2 Flow Rate FiO2 03/22/17 09:00 98 Nasal Cannula 2.00 03/22/17 06:00 89 03/22/17 05:56 98.4 69 16 101/77 98 03/22/17 05:00 89 03/22/17 04:00 89 03/22/17 03:00 89 03/22/17 02:00 89 03/22/17 01:33 99.0 64 16 103/50 96 03/22/17 01:00 89 03/22/17 00:00 89 03/21/17 23:00 89 03/21/17 22:29 98.3 64 16 113/59 96 03/21/17 22:00 89 03/21/17 21:00 89 03/21/17 20:00 89 03/21/17 19:00 89 03/21/17 18:30 89 03/21/17 17:59 98.0 79 18 99/50 95 03/21/17 17:27 93 21 I/O 03/21/17 03/21/17 03/21/17 03/22/17 03/22/17 03/22/17 07:00 15:00 23:00 07:00 15:00 23:00 Intake Total 552 ml 240 ml Output Total 330 ml 1650 ml 700 ml Balance 222 ml -1650 ml -460 ml Intake Oral 240 ml 240 ml IV Total 240 ml Other 72 ml Output Urine Total 330 ml 150 ml 700 ml Hemodialysis 1500 ml # Bowel Movements 1 Result Diagram: 03/22/1728 03/22/17627 Objective Remarks GENERAL: NAD, A&Ox3 SKIN: Warm and dry. HEAD: Normocephalic. EYES: No scleral icterus. No injection or drainage. NECK: Supple, trachea midline. No JVD or lymphadenopathy. CARDIOVASCULAR: Regular rate and rhythm without murmurs, gallops, or rubs. RESPIRATORY: Breath sounds equal bilaterally. No accessory muscle use. GASTROINTESTINAL: Abdomen soft, non-tender, nondistended. MUSCULOSKELETAL: No cyanosis, or edema. BACK: Nontender without obvious deformity. No CVA tenderness. A/P Problem List: (1) Streptococcal bacteremia ICD Code: R78.81 (2) NATALIA (acute kidney injury) ICD Code: N17.9 (3) Atrial flutter with rapid ventricular response ICD Code: I48.92 (4) Acute renal failure ICD Code: N17.9 (5) Biliary liver cirrhosis ICD Code: K74.5 (6) Encephalopathy ICD Code: G93.40 (7) Diabetes ICD Code: E11.9 (8) Hypocalcemia ICD Code: E83.51 Assessment and Plan Assessment and Plan 76 year old female with infective endocarditis and a prosthetic valve. On dialysis now. Insulins discontinued due to another occurrence of AM hypoglycemia despite a decrease in long acting insulins by half. 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 Strep Bacteremia (Strep V) Continue Rocephin Improving with antibiotics Cardiology following Latest blood cultures are negative Encephalopathy Resolved Likely was related to infectious state NATALIA Gradual worsening in the past three days Nephrology following Continue IV Hydration Follow renal function A-fib with RVR Likely a response to infection Controlled on a Diltiazem PO Follow on telemetry Continue Heparin Drip Cardiology following Anemia Shows stability through time Follow CBC No need to stop Heparin drip as long as stability remains Hyperlipidemia Statin Follow as an outpatient Biliary Cirrhosis, state IV Spironolactone continued Lasix continued Mckenna continued DM2 SSI Diabetic Diet Follow blood sugars Hypothyroidism Continue supplementation GERD Hiatal Hernia Continue PPI Follow clinically DVT Prophylaxis SCDs and Heparin drip Problem Qualifiers (1) Acute renal failure: Qualified Code: N17.9 - Acute renal failure, unspecified acute renal failure type Raimundo Kathleen MD March 22, 2017 14:48
[2017-03-22] MEDS: GENTAMICIN SULFATE (DIALYSIS USE ONLY) 20 MG/2 ML VIAL IV PRN (15:21)
[2017-03-22] MEDS: SODIUM CHLOR 0.9% 1000 ML INJ 1,000 ML IV PRN (15:21)
[2017-03-22] MEDS: HEPARIN SODIUM - IV 10,000 UNITS/10 ML VIAL PRN (15:22)
[2017-03-22] MEDS: HEPARIN-D5W INJ 250 ML IV SCH (22:19)
[2017-03-22] MEDS: ACETAMINOPHEN/HYDROcodone 325 MG/5 MG TAB PO PRN (22:22)
[2017-03-22] MEDS: ATORVASTATIN 10 MG TAB PO SCH (22:24)
[2017-03-23] VITALS (27 sets, daily range): BP systolic 112–145; BP diastolic 58–74; PULSE 50–104; RESP 16; TEMP 98.1–98.6; O2SAT 90–97
[2017-03-23] MEDS: CHLORHEXIDINE GLUCONATE 2 % 1 PACK (2 CLOTHS) TOP SCH (04:00)
[2017-03-23 05:51] LABS: APTT (PATIENT) 75.9 SEC (24.3-30.1)
[2017-03-23 05:57] LABS: MEAN CELL VOLUME 87.2 FL (80.0-100.0); MEAN CORPUSCULAR HEMOGLOBIN 29.1 PG (27.0-34.0); MEAN CORPUSCULAR HGB CONC 33.4 % (32.0-36.0); PLATELET COUNT 80 TH/MM3 (150-450); RED BLOOD COUNT 3.21 MIL/MM3 (4.00-5.30); RED CELL DISTRIBUTION WIDTH 16.8 % (11.6-17.2); WHITE BLOOD COUNT 8.7 TH/MM3 (4.0-11.0)
[2017-03-23 05:59] LABS: BICARBONATE 31.9 MEQ/L (21.0-32.0); POTASSIUM 3.8 MEQ/L (3.5-5.1)
[2017-03-23] MEDS: LEVOTHYROXINE SODIUM 75 MCG TAB PO SCH (06:00)
[2017-03-23 06:13] LABS: REVIEW FLAG FINAL
[2017-03-23] MEDS: INSULIN ASPART SUPPLEMENTAL SCALE SQ SCH ×5 (06:38→21:00)
[2017-03-23] MEDS: URSODIOL PO SCH ×2 (08:35→22:29)
[2017-03-23] MEDS: MULTIVITAMIN TAB PO SCH (08:36)
[2017-03-23] MEDS: BUMETANIDE INJ 1 MG/4 ML VIAL IV PUSH SCH ×2 (08:36→17:15)
[2017-03-23] MEDS: CALCIUM CARBONATE 1.25 GM (CA 500 MG) TAB PO SCH ×3 (08:36→17:15)
[2017-03-23] MEDS: DILTIAZEM HCL 60 MG TAB PO SCH ×3 (08:36→17:15)
[2017-03-23] MEDS: SODIUM CHLORIDE 0.9% FLUSH 10 ML FLUSH IVF SCH (08:36)
[2017-03-23] MEDS: SODIUM CHLORIDE 0.9% FLUSH 10 ML FLUSH IV FLUSH SCH ×2 (08:36→22:30)
[2017-03-23] MEDS: SENNOSIDES 8.6 MG TAB PO SCH ×2 (08:37→21:00)
[2017-03-23] MEDS: DOCUSATE SODIUM 100 MG CAP PO SCH ×2 (08:37→21:00)
--- NOTE | 2017-03-23 10:49 | HHI.PR ---
Subjective Remarks Blood sugars are stabilized and actually trending to high today. No hypoglycemia. Calcium is improved. Creatinine is improved. No new complaints from the patient. Objective Vital Signs Date Time Temp Pulse Resp B/P Pulse Ox O2 Delivery O2 Flow Rate FiO2 03/23/17 08:31 95 2.00 03/23/17 08:00 98.2 76 16 145/68 96 03/23/17 08:00 65 03/23/17 06:12 98.6 62 16 123/67 97 03/23/17 06:11 60 03/23/17 05:00 62 03/23/17 04:00 62 03/23/17 03:00 50 03/23/17 02:00 52 03/23/17 01:00 50 03/23/17 00:00 50 03/22/17 23:26 98.4 65 16 117/66 98 03/22/17 23:00 50 03/22/17 22:00 56 03/22/17 21:47 Nasal Cannula 2.00 03/22/17 21:00 74 03/22/17 20:00 80 03/22/17 20:00 98.4 67 16 124/60 97 03/22/17 19:00 68 03/22/17 18:00 64 03/22/17 17:00 66 03/22/17 16:00 54 03/22/17 16:00 96.8 71 16 121/60 94 03/22/17 15:00 52 03/22/17 14:00 60 03/22/17 13:00 66 03/22/17 12:00 97.6 71 16 129/62 95 03/22/17 12:00 80 03/22/17 11:00 75 I/O 03/22/17 03/22/17 03/22/17 03/23/17 03/23/17 03/23/17 07:00 15:00 23:00 07:00 15:00 23:00 Intake Total 240 ml 171 ml 456 ml Output Total 700 ml 1000 ml 200 ml Balance -460 ml -829 ml 256 ml Intake Oral 240 ml 360 ml IV Total 171 ml 96 ml Output Urine Total 700 ml 200 ml Hemodialysis 1000 ml # Bowel Movements 1 1 Result Diagram: 03/23/17 0350 03/23/17 0350 Objective Remarks GENERAL: NAD, A&Ox3 SKIN: Warm and dry. HEAD: Normocephalic. EYES: No scleral icterus. No injection or drainage. NECK: Supple, trachea midline. No JVD or lymphadenopathy. CARDIOVASCULAR: Regular rate and rhythm without murmurs, gallops, or rubs. RESPIRATORY: Breath sounds equal bilaterally. No accessory muscle use. GASTROINTESTINAL: Abdomen soft, non-tender, nondistended. MUSCULOSKELETAL: No cyanosis, or edema. BACK: Nontender without obvious deformity. No CVA tenderness. A/P Problem List: (1) Streptococcal bacteremia ICD Code: R78.81 (2) NATALIA (acute kidney injury) ICD Code: N17.9 (3) Atrial flutter with rapid ventricular response ICD Code: I48.92 (4) Acute renal failure ICD Code: N17.9 (5) Biliary liver cirrhosis ICD Code: K74.5 (6) Encephalopathy ICD Code: G93.40 (7) Diabetes ICD Code: E11.9 (8) Hypocalcemia ICD Code: E83.51 Assessment and Plan Assessment and Plan 76 year old female with infective endocarditis and a prosthetic valve. On dialysis now. Sliding scale insulin resumed. Follow electrolytes, improving based on review of labs this morning. CBC and BMP ordered for tomorrow. Next dialysis will be in two days. 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 Strep Bacteremia (Strep V) Continue Rocephin Improving with antibiotics Cardiology following Latest blood cultures are negative Encephalopathy Resolved Likely was related to infectious state NATALIA Gradual worsening in the past three days Nephrology following Continue IV Hydration Follow renal function A-fib with RVR Likely a response to infection Controlled on a Diltiazem PO Follow on telemetry Continue Heparin Drip Cardiology following Anemia Shows stability through time Follow CBC No need to stop Heparin drip as long as stability remains Hyperlipidemia Statin Follow as an outpatient Biliary Cirrhosis, state IV Spironolactone continued Lasix continued Mckenna continued DM2 SSI Diabetic Diet Follow blood sugars Hypothyroidism Continue supplementation GERD Hiatal Hernia Continue PPI Follow clinically DVT Prophylaxis SCDs and Heparin drip Problem Qualifiers (1) Acute renal failure: Qualified Code: N17.9 - Acute renal failure, unspecified acute renal failure type Raimundo Kathleen MD March 23, 2017 10:49
[2017-03-23] MEDS ORDERED: GLUCAGON 1 MG/ML VIAL OTHER PRN (11:00)
[2017-03-23] MEDS ORDERED: DEXTROSE 50% IN WATER 50 ML VIAL(D50) IV PUSH PRN (11:00)
--- NOTE | 2017-03-23 11:24 | HHI.NPPN ---
Subjective History of Present Illness 76 Year old W Female with ARF, Biliary Cirrhosis, streptococcus Viridans sepsis Additional Remarks Patient is alert, no SOB, started eating better. Review of Systems General Constitutional: Fatigue Objective Data Data 03/22/17 03/23/17 19:00 07:00 Intake Total 411 ml 456 ml Output Total 1700 ml 200 ml Balance -1289 ml 256 ml Intake Oral 240 ml 360 ml IV Total 171 ml 96 ml Output Urine Total 700 ml 200 ml Hemodialysis 1000 ml # Bowel Movements 1 1 Vital Signs Date Time Temp Pulse Resp B/P Pulse Ox O2 Delivery O2 Flow Rate FiO2 03/23/17 08:31 95 2.00 03/23/17 08:00 98.2 76 16 145/68 96 03/23/17 08:00 65 03/23/17 06:12 98.6 62 16 123/67 97 03/23/17 06:11 60 03/23/17 05:00 62 03/23/17 04:00 62 03/23/17 03:00 50 03/23/17 02:00 52 03/23/17 01:00 50 03/23/17 00:00 50 03/22/17 23:26 98.4 65 16 117/66 98 03/22/17 23:00 50 03/22/17 22:00 56 03/22/17 21:47 Nasal Cannula 2.00 03/22/17 21:00 74 03/22/17 20:00 80 03/22/17 20:00 98.4 67 16 124/60 97 03/22/17 19:00 68 03/22/17 18:00 64 03/22/17 17:00 66 03/22/17 16:00 54 03/22/17 16:00 96.8 71 16 121/60 94 03/22/17 15:00 52 03/22/17 14:00 60 03/22/17 13:00 66 03/22/17 12:00 97.6 71 16 129/62 95 03/22/17 12:00 80 -: 03/23/17 0350 03/23/17 0350 Physical Exam General Appearance: No Acute Distress, Comfortable, Anxious Neck Neck Exam: Neck Supple Pulmonary Resp Exam: Breath Sounds Equal, No Distress, Rhonchi, Decreased Bases Cardiology CV Exam: Irregular Gastrointestinal/Abdomen GI Exam: Soft, Non-Tender, Bowel Sounds Present Extremeties Extremities Exam: Trace Edema Neurologic Neuro Exam: Alert, Awake, Oriented Psychiatric Psych Exam: Appropriate Responses Assessment/Plan Problem List: (1) Acute renal failure Plan: This is ARF Creatinine was worse and started on dialysis. Non oliguric, on Bumex. HD was done yesterday and 1 liter was removed. Tolerated it well. Watch for renal recovery. Avoid Nephrotoxins. There is some improvement in the urine out put. Dr. Peng will follow from tomorrow. (2) Streptococcal bacteremia Plan: Infectious disease is following she is on broad-spectrum antibiotic ceftriaxone (3) Atrial flutter with rapid ventricular response Plan: On diltiazem (4) Biliary liver cirrhosis Plan: Follows with GI Problem Qualifiers (1) Acute renal failure: Qualified Code: N17.9 - Acute renal failure, unspecified acute renal failure type Maribel Sherman MD March 23, 2017 11:23
[2017-03-23] MEDS: cefTRIAXone INJ 2,000 MG in SODIUM CHLORIDE 0.9% INJ 100 ML IV SCH (12:50)
[2017-03-23] MEDS: ATORVASTATIN 10 MG TAB PO SCH (22:29)
[2017-03-23] MEDS: ACETAMINOPHEN/HYDROcodone 325 MG/5 MG TAB PO PRN (22:29)
[2017-03-24] VITALS (16 sets, daily range): BP systolic 112–139; BP diastolic 57–79; PULSE 60–86; RESP 16–18; TEMP 97.8–98.6; O2SAT 90–98
[2017-03-24] MEDS: CHLORHEXIDINE GLUCONATE 2 % 1 PACK (2 CLOTHS) TOP SCH (04:00)
[2017-03-24 06:24] LABS: APTT (PATIENT) 37.6 SEC (24.3-30.1)
[2017-03-24 06:32] LABS: HEMATOCRIT 29.4 % (35.0-46.0); MEAN CELL VOLUME 88.6 FL (80.0-100.0); MEAN CORPUSCULAR HEMOGLOBIN 29.2 PG (27.0-34.0); PLATELET COUNT 60 TH/MM3 (150-450); RED BLOOD COUNT 3.32 MIL/MM3 (4.00-5.30); RED CELL DISTRIBUTION WIDTH 17.2 % (11.6-17.2); REVIEW FLAG FINAL; WHITE BLOOD COUNT 10.4 TH/MM3 (4.0-11.0)
[2017-03-24] MEDS: LEVOTHYROXINE SODIUM 75 MCG TAB PO SCH (06:37)
[2017-03-24 06:48] LABS: POTASSIUM 3.7 MEQ/L (3.5-5.1)
[2017-03-24] MEDS: INSULIN ASPART SUPPLEMENTAL SCALE SQ SCH ×4 (07:00→20:29)
[2017-03-24] MEDS: HEPARIN-D5W INJ 250 ML IV SCH (07:18)
[2017-03-24] MEDS: DILTIAZEM HCL 60 MG TAB PO SCH ×3 (08:29→17:21)
[2017-03-24] MEDS: MULTIVITAMIN TAB PO SCH (08:29)
[2017-03-24] MEDS: CALCIUM CARBONATE 1.25 GM (CA 500 MG) TAB PO SCH ×3 (08:29→17:21)
[2017-03-24] MEDS: URSODIOL PO SCH ×2 (08:29→20:36)
[2017-03-24] MEDS: DOCUSATE SODIUM 100 MG CAP PO SCH ×2 (08:30→20:30)
[2017-03-24] MEDS: SENNOSIDES 8.6 MG TAB PO SCH ×2 (08:30→20:30)
[2017-03-24] MEDS: SODIUM CHLORIDE 0.9% FLUSH 10 ML FLUSH IVF SCH (08:30)
[2017-03-24] MEDS: BUMETANIDE INJ 1 MG/4 ML VIAL IV PUSH SCH ×2 (08:30→17:21)
[2017-03-24] MEDS: SODIUM CHLORIDE 0.9% FLUSH 10 ML FLUSH IV FLUSH SCH ×2 (08:30→20:31)
[2017-03-24] MEDS ORDERED: INSULIN HUMAN NPH 1,000 UNITS/10 ML VIAL SQ ONE (09:45)
--- NOTE | 2017-03-24 09:50 | HHI.PR ---
Subjective Remarks Blood sugars remain elevated now and her oral intake is improved. No hypoglycemia. Calcium is improved also. Creatinine is slightly up without dialysis (next dialysis tomorrow). No new complaints from the patient. Objective Vital Signs Date Time Temp Pulse Resp B/P Pulse Ox O2 Delivery O2 Flow Rate FiO2 03/24/17 08:00 98.5 77 16 139/77 93 03/24/17 08:00 66 03/24/17 04:30 98.6 75 16 127/71 98 03/24/17 04:00 62 03/24/17 03:00 61 03/24/17 02:00 78 03/24/17 01:00 60 03/24/17 00:53 98.4 86 16 134/79 90 03/24/17 00:00 62 03/23/17 23:00 104 03/23/17 22:00 64 03/23/17 21:00 56 03/23/17 20:18 98.3 75 16 139/58 90 03/23/17 20:00 64 03/23/17 19:11 Nasal Cannula 2.00 03/23/17 19:00 67 03/23/17 18:00 54 03/23/17 17:00 52 03/23/17 16:00 72 03/23/17 16:00 98.1 57 16 112/58 94 03/23/17 15:00 74 03/23/17 14:00 66 03/23/17 13:00 68 03/23/17 12:00 55 03/23/17 12:00 98.1 62 16 123/74 96 03/23/17 11:00 64 03/23/17 10:00 62 I/O 03/23/17 03/23/17 03/23/17 03/24/17 03/24/17 03/24/17 06:59 14:59 22:59 06:59 14:59 22:59 Intake Total 456 ml 1128 ml 432 ml Output Total 200 ml 300 ml 500 ml Balance 256 ml 828 ml -68 ml Intake Oral 360 ml 840 ml 360 ml IV Total 96 ml 288 ml 72 ml Output Urine Total 200 ml 300 ml 500 ml # Bowel Movements 1 1 0 Result Diagram: 03/24/17 0542 03/24/17 0542 Objective Remarks GENERAL: NAD, A&Ox3 SKIN: Warm and dry. HEAD: Normocephalic. EYES: No scleral icterus. No injection or drainage. NECK: Supple, trachea midline. No JVD or lymphadenopathy. CARDIOVASCULAR: Regular rate and rhythm without murmurs, gallops, or rubs. RESPIRATORY: Breath sounds equal bilaterally. No accessory muscle use. GASTROINTESTINAL: Abdomen soft, non-tender, nondistended. MUSCULOSKELETAL: No cyanosis, or edema. BACK: Nontender without obvious deformity. No CVA tenderness. A/P Problem List: (1) Streptococcal bacteremia ICD Code: R78.81 (2) NATALIA (acute kidney injury) ICD Code: N17.9 (3) Atrial flutter with rapid ventricular response ICD Code: I48.92 (4) Acute renal failure ICD Code: N17.9 (5) Biliary liver cirrhosis ICD Code: K74.5 (6) Encephalopathy ICD Code: G93.40 (7) Diabetes ICD Code: E11.9 (8) Hypocalcemia ICD Code: E83.51 Assessment and Plan Assessment and Plan 76 year old female with infective endocarditis and a prosthetic valve. On dialysis now, which may be temporary if her renal function improves. Sliding scale insulin continued Resume long acting insulins and follow for hypoglycemia Follow electrolytes, improving based on review of labs this morning. CBC and BMP ordered for tomorrow. 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 Strep Bacteremia (Strep V) Continue Rocephin Improving with antibiotics Cardiology following Latest blood cultures are negative Encephalopathy Resolved Likely was related to infectious state NATALIA Nephrology following On Dialysis for now Continue IV Hydration Follow renal function A-fib with RVR Likely a response to infection No recurrence of concerning tachycardia since 03/18/17 Controlled on a Diltiazem PO Follow on telemetry Continue Heparin Drip Cardiology following Anemia Shows stability through time Follow CBC No need to stop Heparin drip as long as stability remains Hyperlipidemia Statin Follow as an outpatient Biliary Cirrhosis, state IV Spironolactone continued Lasix continued [place] continued DM2 SSI Long acting insulins Diabetic Diet Follow blood sugars Hypothyroidism Continue supplementation GERD Hiatal Hernia Continue PPI Follow clinically DVT Prophylaxis SCDs and Heparin drip Problem Qualifiers (1) Acute renal failure: Qualified Code: N17.9 - Acute renal failure, unspecified acute renal failure type Raimundo Kathleen MD March 24, 2017 09:50
[2017-03-24] MEDS ORDERED: CALCIUM CARBONATE 500 MG CHEWABLE TAB CHEW PRN (11:00)
[2017-03-24] MEDS: PANTOPRAZOLE SOD 40 MG DELAYED RELEASE TAB PO SCH (11:01)
--- NOTE | 2017-03-24 12:30 | HHI.IDPN ---
Note Infectious Disease Note Patient feels okay. Sitting up in chair. On room air. O2 desaturates while doing PT exercises in chair. No nausea. No chills, No CP. Afebrile. Getting hemodialysis treatments. Platelet count lower. 03/19 - Blood culture no growth. 03/14 - Blood culture has no growth. 03/13 - Blood cultures has strep viridans. 03/12 - Blood cultures has strep viridans. 03/11 - Blood cultures has strep viridans. 03/17 - EGD procedure. No varices. Presented to emergency department on 03/11 with generalized weakness. The patient previously presented to [facility] one week ago after three days of generalized weakness and diarrhea. She was evaluated and the white blood cell count was normal and she was afebrile. PAST MEDICAL HISTORY 1. Biliary cirrhosis 2. Diabetes mellitus 3. Appendectomy 4. Hysterectomy. 5. Aortic valve replacement in 2012 with Bovine valve. 6. Gastroesophageal reflux disease 7. Bilateral cataract surgery, one was done February 2017 and the first was January 2017. ALLERGIES AMPICILLIN LEAD TO SHORTNESS OF BREATH. PATIENT ABLE TO TOLERATE AMOXICILLIN. LEVAQUIN SULFA MACROBID IODINE CONTRAST MEDIA. HEART DISEASE. ANTIBIOTICS: Ceftriaxone. SOCIAL HISTORY No tobacco use. Social alcohol use. No illicit drugs. OBJECTIVE: Vital Signs Date Time Temp Pulse Resp B/P Pulse Ox O2 Delivery O2 Flow Rate FiO2 03/24/17 12:00 79 03/24/17 12:00 98.4 74 16 122/57 94 03/24/17 11:00 68 03/24/17 10:42 Nasal Cannula 2.00 03/24/17 10:00 72 03/24/17 09:00 82 03/24/17 08:00 98.5 77 16 139/77 93 03/24/17 08:00 66 03/24/17 07:00 64 03/24/17 04:30 98.6 75 16 127/71 98 03/24/17 04:00 62 03/24/17 03:00 61 03/24/17 02:00 78 03/24/17 01:00 60 03/24/17 00:53 98.4 86 16 134/79 90 03/24/17 00:00 62 03/23/17 23:00 104 03/23/17 22:00 64 03/23/17 21:00 56 03/23/17 20:18 98.3 75 16 139/58 90 03/23/17 20:00 64 03/23/17 19:11 Nasal Cannula 2.00 03/23/17 19:00 67 03/23/17 18:00 54 03/23/17 17:00 52 03/23/17 16:00 72 03/23/17 16:00 98.1 57 16 112/58 94 03/23/17 15:00 74 03/23/17 14:00 66 03/23/17 13:00 68 03/23/17 03/23/17 03/24/17 14:59 22:59 06:59 Intake Total 1128 ml 432 ml Output Total 300 ml 500 ml Balance 828 ml -68 ml Intake Oral 840 ml 360 ml IV Total 288 ml 72 ml Output Urine Total 300 ml 500 ml # Bowel Movements 1 0 Laboratory Tests Test 03/23/17 03/24/17 03:50 05:42 White Blood Count 8.7 TH/MM3 10.4 TH/MM3 Red Blood Count 3.21 MIL/MM3 3.32 MIL/MM3 Hemoglobin 9.3 GM/DL 9.7 GM/DL Hematocrit 28.0 % 29.4 % Mean Corpuscular Volume 87.2 FL 88.6 FL Mean Corpuscular Hemoglobin 29.1 PG 29.2 PG Mean Corpuscular Hemoglobin 33.4 % 33.0 % Concent Red Cell Distribution Width 16.8 % 17.2 % Platelet Count 80 TH/MM3 60 TH/MM3 Mean Platelet Volume 7.8 FL 7.7 FL Laboratory Tests Test 03/23/17 03/24/17 03:50 05:42 Sodium Level 135 MEQ/L 133 MEQ/L Potassium Level 3.8 MEQ/L 3.7 MEQ/L Chloride Level 97 MEQ/L 94 MEQ/L Carbon Dioxide Level 31.9 MEQ/L 30.0 MEQ/L Anion Gap 6 MEQ/L 9 MEQ/L Blood Urea Nitrogen 13 MG/DL 16 MG/DL Creatinine 2.49 MG/DL 2.76 MG/DL Estimat Glomerular Filtration 19 ML/MIN 17 ML/MIN Rate Random Glucose 193 MG/DL 173 MG/DL Calcium Level 8.2 MG/DL 8.4 MG/DL IMAGING: Chest X-Ray 03/21/17 0000 Signed Impressions: Service Date/Time: Tuesday, March 21, 2017 09:16 - CONCLUSION: Bibasilar opacities characteristic of pleural effusions with associated volume loss and/or consolidation. The perihilar interstitial opacities are suggestive of pulmonary edema. Reynaldo Higgins MD Renal Ultrasound 03/18/17 0000 Signed Impressions: Service Date/Time: Saturday, March 18, 2017 17:35 - CONCLUSION: 1. Echogenic kidneys bilaterally compatible with medical renal disease. 2. Small volume ascites Dimitrios Lopez MD Chest X-Ray 03/15/17 0600 Signed Impressions: Service Date/Time: Wednesday, March 15, 2017 04:56 - CONCLUSION: Worsening consolidation and effusion at the left lung base. Reynaldo Lazar MD Neck CTA 03/12/17 0000 Signed Impressions: Service Date/Time: Sunday, March 12, 2017 20:22 - CONCLUSION: Slight atherosclerosis of both carotid bifurcations without narrowing. Dominant left vertebral artery. Reynaldo Lazar MD Head CTA 03/12/17 0000 Signed Impressions: Service Date/Time: Sunday, March 12, 2017 20:22 - CONCLUSION: Normal intracranial arteries. Reynaldo Lazar MD Head CT 03/12/17 0000 Signed Impressions: Service Date/Time: Sunday, March 12, 2017 19:02 - CONCLUSION: Negative noncontrast head CT. Reynaldo Lazar MD PHYSICAL EXAMINATION GENERAL: Awake and alert. HEENT: No icterus. No conjunctival erythema. Oropharynx no thrush. NECK: Supple without adenopathy or swelling. No JVD. LUNGS: Decreased breath sounds. HEART: Irregular S1S2. 2/6 blowing systolic ejection murmur at the left sternal border and also at the upper right sternal border. ABDOMEN: Bowel sounds present, soft, no tenderness. EXTREMITIES: No clubbing or cyanosis. Ecchymosis of the hands. Edema at the forearms at IV sites. No peripheral embolic lesions. NEUROLOGIC: Nonfocal. SKIN: No diffuse rash. PSYCHIATRIC: Calm and cooperative. IMPRESSION 1. Bacteremia due to Viridans Strep. Blood cultures now negative. 2. Bioprosthetic aortic valve endocarditis. 3. Sepsis. strep viridans group. 4. Altered mental status secondary to Sepsis. Resolved. 5. Leukocytosis. Improved. 6. Acute kidney disease. Worsened kidney function. Probably related to aminoglycoside/dehydration. now getting dialysed. Given the presence of vegetation she is at risk of complications such as valve malfunction and emboli. 7. Multiple antibiotic allergies. 8. CHF. RECOMMENDATIONS 1. Continue Ceftriaxone. 2. Follow renal function. 3. Monitor clinical status. Discussed with . Edwin Harrison MD March 24, 2017 12:30
[2017-03-24] MEDS: cefTRIAXone INJ 2,000 MG in SODIUM CHLORIDE 0.9% INJ 100 ML IV SCH (13:18)
--- NOTE | 2017-03-24 14:05 | HHI.NPPN ---
Subjective History of Present Illness 76 Year old W Female with ARF, Biliary Cirrhosis, streptococcus Viridans sepsis Additional Remarks Patient is alert, no SOB, started eating better. Review of Systems General Constitutional: Fatigue Objective Data Data 03/23/17 03/24/17 19:00 07:00 Intake Total 1128 ml 432 ml Output Total 300 ml 500 ml Balance 828 ml -68 ml Intake Oral 840 ml 360 ml IV Total 288 ml 72 ml Output Urine Total 300 ml 500 ml # Bowel Movements 1 0 Vital Signs Date Time Temp Pulse Resp B/P Pulse Ox O2 Delivery O2 Flow Rate FiO2 03/24/17 12:00 79 03/24/17 12:00 98.4 74 16 122/57 94 03/24/17 11:00 68 03/24/17 10:42 Nasal Cannula 2.00 03/24/17 10:00 72 03/24/17 09:00 82 03/24/17 08:00 98.5 77 16 139/77 93 03/24/17 08:00 66 03/24/17 07:00 64 03/24/17 04:30 98.6 75 16 127/71 98 03/24/17 04:00 62 03/24/17 03:00 61 03/24/17 02:00 78 03/24/17 01:00 60 03/24/17 00:53 98.4 86 16 134/79 90 03/24/17 00:00 62 03/23/17 23:00 104 03/23/17 22:00 64 03/23/17 21:00 56 03/23/17 20:18 98.3 75 16 139/58 90 03/23/17 20:00 64 03/23/17 19:11 Nasal Cannula 2.00 03/23/17 19:00 67 03/23/17 18:00 54 03/23/17 17:00 52 03/23/17 16:00 72 03/23/17 16:00 98.1 57 16 112/58 94 03/23/17 15:00 74 -: 03/24/17 0542 03/24/17 0542 Physical Exam General Appearance: No Acute Distress, Comfortable, Anxious Neck Neck Exam: Neck Supple Pulmonary Resp Exam: Breath Sounds Equal, No Distress, Rhonchi, Decreased Bases Cardiology CV Exam: Irregular Gastrointestinal/Abdomen GI Exam: Soft, Non-Tender, Bowel Sounds Present Extremeties Extremities Exam: Trace Edema Neurologic Neuro Exam: Alert, Awake, Oriented Psychiatric Psych Exam: Appropriate Responses Assessment/Plan Problem List: (1) Acute renal failure Plan: This is ARF Creatinine was worse and started on dialysis. Non oliguric, on Bumex. HD was done Friday and 1 liter was removed. Next HD tomorrow cr trending higher at 2.7 (2) Streptococcal bacteremia Plan: Infectious disease is following she is on broad-spectrum antibiotic ceftriaxone (3) Atrial flutter with rapid ventricular response Plan: Off diltiazem (4) Biliary liver cirrhosis Plan: Follows with GI Problem Qualifiers (1) Acute renal failure: Qualified Code: N17.9 - Acute renal failure, unspecified acute renal failure type Molly Peng MD March 24, 2017 14:05
[2017-03-24] MEDS: INSULIN DETEMIR 100 UNITS/ML VIAL SQ SCH (20:29)
[2017-03-24] MEDS: ATORVASTATIN 10 MG TAB PO SCH (20:35)
[2017-03-24] MEDS: ACETAMINOPHEN/HYDROcodone 325 MG/5 MG TAB PO PRN (20:36)
[2017-03-25] VITALS (8 sets, daily range): BP systolic 94–128; BP diastolic 51–63; PULSE 65–106; RESP 18–20; TEMP 97.7–98.5; O2SAT 92–99
[2017-03-25] MEDS: CHLORHEXIDINE GLUCONATE 2 % 1 PACK (2 CLOTHS) TOP SCH (04:00)
[2017-03-25] MEDS: LEVOTHYROXINE SODIUM 75 MCG TAB PO SCH (06:00)
[2017-03-25] MEDS: INSULIN ASPART SUPPLEMENTAL SCALE SQ SCH ×4 (06:38→20:14)
[2017-03-25 07:23] LABS: HEMATOCRIT 29.2 % (35.0-46.0); MEAN CELL VOLUME 88.2 FL (80.0-100.0); MEAN CORPUSCULAR HGB CONC 32.9 % (32.0-36.0); PLATELET COUNT 40 TH/MM3 (150-450); RED BLOOD COUNT 3.31 MIL/MM3 (4.00-5.30); RED CELL DISTRIBUTION WIDTH 16.9 % (11.6-17.2); WHITE BLOOD COUNT 9.5 TH/MM3 (4.0-11.0)
[2017-03-25 07:27] LABS: REVIEW FLAG FINAL
[2017-03-25 07:33] LABS: APTT (PATIENT) 56.6 SEC (24.3-30.1)
[2017-03-25 08:02] LABS: BICARBONATE 31.1 MEQ/L (21.0-32.0); POTASSIUM 3.5 MEQ/L (3.5-5.1)
[2017-03-25] MEDS: CALCIUM CARBONATE 1.25 GM (CA 500 MG) TAB PO SCH ×3 (09:00→17:22)
[2017-03-25] MEDS: URSODIOL PO SCH ×2 (09:00→20:21)
[2017-03-25] MEDS: SODIUM CHLORIDE 0.9% FLUSH 10 ML FLUSH IVF SCH (09:00)
[2017-03-25] MEDS: DILTIAZEM HCL 60 MG TAB PO SCH ×3 (09:00→17:15)
[2017-03-25] MEDS: DOCUSATE SODIUM 100 MG CAP PO SCH ×2 (09:00→20:21)
[2017-03-25] MEDS: SENNOSIDES 8.6 MG TAB PO SCH ×2 (09:00→20:22)
--- NOTE | 2017-03-25 12:16 | HHI.NPPN ---
Subjective History of Present Illness 76 Year old W Female with ARF, Biliary Cirrhosis, streptococcus Viridans sepsis Additional Remarks Patient is alert, no SOB, started eating better. Review of Systems General Constitutional: Fatigue Objective Data Data 03/24/17 03/25/17 18:59 06:59 Intake Total 600 ml Balance 600 ml Intake Oral 600 ml # Voids 4 # Bowel Movements 1 Vital Signs Date Time Temp Pulse Resp B/P Pulse Ox O2 Delivery O2 Flow Rate FiO2 03/25/17 08:00 98.5 82 18 126/62 97 03/25/17 07:00 65 03/25/17 04:00 98.2 76 18 128/63 99 03/25/17 00:00 97.7 74 18 120/62 94 03/24/17 20:23 72 03/24/17 20:00 97.8 76 18 123/60 93 03/24/17 16:00 98.0 61 18 136/62 97 -: 03/25/17 0650 03/25/17 0650 Physical Exam General Appearance: No Acute Distress, Comfortable, Anxious Neck Neck Exam: Neck Supple Pulmonary Resp Exam: Breath Sounds Equal, No Distress, Rhonchi, Decreased Bases Cardiology CV Exam: Irregular Gastrointestinal/Abdomen GI Exam: Soft, Non-Tender, Bowel Sounds Present Extremeties Extremities Exam: Trace Edema Neurologic Neuro Exam: Alert, Awake, Oriented Psychiatric Psych Exam: Appropriate Responses Assessment/Plan Problem List: (1) Acute renal failure Plan: This is ARF Creatinine was worse and started on dialysis. Non oliguric, on Bumex. HD Cr 3.1 k borderline seen during hemodialysis On 4 k/hco3 uf 2 L (2) Streptococcal bacteremia Plan: Infectious disease is following she is on broad-spectrum antibiotic ceftriaxone (3) Atrial flutter with rapid ventricular response Plan: Off diltiazem (4) Biliary liver cirrhosis Plan: Follows with GI Problem Qualifiers (1) Acute renal failure: Qualified Code: N17.9 - Acute renal failure, unspecified acute renal failure type Molly Peng MD March 25, 2017 12:16
[2017-03-25] MEDS: EPOETIN ALFA 10,000 UNITS/ML VIAL IV PRN (12:25)
[2017-03-25] MEDS: HEPARIN SODIUM - IV 10,000 UNITS/10 ML VIAL PRN (12:26)
[2017-03-25] MEDS: GENTAMICIN SULFATE (DIALYSIS USE ONLY) 20 MG/2 ML VIAL IV PRN (12:27)
[2017-03-25] MEDS: MULTIVITAMIN TAB PO SCH (13:08)
[2017-03-25] MEDS: PANTOPRAZOLE SOD 40 MG DELAYED RELEASE TAB PO SCH (13:08)
[2017-03-25] MEDS: SODIUM CHLORIDE 0.9% FLUSH 10 ML FLUSH IV FLUSH SCH ×2 (13:09→20:21)
[2017-03-25] MEDS: BUMETANIDE INJ 1 MG/4 ML VIAL IV PUSH SCH ×2 (13:09→17:15)
[2017-03-25] MEDS: cefTRIAXone INJ 2,000 MG in SODIUM CHLORIDE 0.9% INJ 100 ML IV SCH (13:09)
[2017-03-25] MEDS: ACETAMINOPHEN 325 MG TAB PO PRN (13:27)
--- NOTE | 2017-03-25 15:50 | HHI.PR ---
Subjective Remarks Follow up infective endocarditis/Renal failure 03/25/17-patient seen and examined; alert and oriented x 3; afebrile. NO acute event overnight Objective Vitals Vital Signs Date Time Temp Pulse Resp B/P Pulse Ox O2 Delivery O2 Flow Rate FiO2 03/25/17 13:03 98.2 106 20 103/57 95 03/25/17 08:00 98.5 82 18 126/62 97 03/25/17 07:00 65 03/25/17 04:00 98.2 76 18 128/63 99 03/25/17 00:00 97.7 74 18 120/62 94 03/24/17 20:23 72 03/24/17 20:00 97.8 76 18 123/60 93 03/24/17 16:00 98.0 61 18 136/62 97 I/O 03/24/17 03/24/17 03/24/17 03/25/17 03/25/17 03/25/17 07:00 15:00 23:00 07:00 15:00 23:00 Intake Total 432 ml 360 ml 240 ml Output Total 500 ml 2000 ml Balance -68 ml 360 ml 240 ml -2000 ml Intake Oral 360 ml 360 ml 240 ml IV Total 72 ml Output Urine Total 500 ml Hemodialysis 2000 ml # Voids 3 1 # Bowel Movements 0 0 1 Result Diagram: 03/25/17 0650 03/25/17 0650 Imaging Last Impressions Chest X-Ray 03/21/17 0000 Signed Impressions: Service Date/Time: Tuesday, March 21, 2017 09:16 - CONCLUSION: Bibasilar opacities characteristic of pleural effusions with associated volume loss and/or consolidation. The perihilar interstitial opacities are suggestive of pulmonary edema. Reynaldo Higgins MD Catheter Placement X-Ray 03/21/17 0000 Signed Impressions: Service Date/Time: Tuesday, March 21, 2017 14:31 - CONCLUSION: Uncomplicated line placement as above. Denton Parker Jr., MD Renal Ultrasound 03/18/17 0000 Signed Impressions: Service Date/Time: Saturday, March 18, 2017 17:35 - CONCLUSION: 1. Echogenic kidneys bilaterally compatible with medical renal disease. 2. Small volume ascites Dimitrios Lopez MD Neck CTA 03/12/17 0000 Signed Impressions: Service Date/Time: Sunday, March 12, 2017 20:22 - CONCLUSION: Slight atherosclerosis of both carotid bifurcations without narrowing. Dominant left vertebral artery. Reynaldo Lazar MD Head CTA 03/12/17 0000 Signed Impressions: Service Date/Time: Sunday, March 12, 2017 20:22 - CONCLUSION: Normal intracranial arteries. Reynaldo Lazar MD Head CT 03/12/17 0000 Signed Impressions: Service Date/Time: Sunday, March 12, 2017 19:02 - CONCLUSION: Negative noncontrast head CT. Reynaldo Lazar MD Objective Remarks GENERAL: NAD SKIN: Warm and dry. HEAD: Normocephalic. EYES: No scleral icterus. No injection or drainage. NECK: Supple, trachea midline. No JVD or lymphadenopathy. CARDIOVASCULAR: Regular rate and rhythm without murmurs, gallops, or rubs. RESPIRATORY: Breath sounds equal bilaterally. No accessory muscle use. GASTROINTESTINAL: Abdomen soft, non-tender, nondistended. MUSCULOSKELETAL: No cyanosis, or edema. BACK: Nontender without obvious deformity. No CVA tenderness. Date of Insertion: Mar 13, 2017 Line: Central Venous Catheter Side: Right Location: Internal, Jugular A/P Problem List: (1) Prosthetic valve endocarditis ICD Code: T82.6XXA Status: Acute (2) Atrial flutter with rapid ventricular response ICD Code: I48.92 Status: Acute Assessment and Plan 76 yrs old female with Infective Endocarditis at Prosthetic Valve Strep Bacteremia (Strep V) Continue Rocephin and appreciate input from ID Follow culture Cardiology ff Encephalopathy Resolved NATALIA On Dialysis per Nephrology A-fib with RVR Controlled on a Diltiazem PO Continue Heparin Drip Cardiology ff Anemia Shows stability through time Follow CBC Hyperlipidemia Statin Biliary Cirrhosis, state IV Spironolactone continued Lasix and Mckenna continued DM2 SSI Long acting insulins Diabetic Diet Follow blood sugars Hypothyroidism Continue supplementation GERD Hiatal Hernia Continue PPI DVT Prophylaxis SCDs and Heparin drip Aubrey Snyder MD March 25, 2017 15:50
--- NOTE | 2017-03-25 18:45 | PD.CARD.PN ---
Subjective Subjective Remarks Better On dialysis now Objective Medications Administered Medications Medications (Trade) Dose Ordered Sig/Tunde Route PRN Reason Start Time Stop Time Status Last Admin Dose Admin Atorvastatin Calcium (Lipitor) 10 mg HS PO 03/12/17 21:00 03/24/17 20:35 Levothyroxine Sodium (Synthroid) 75 mcg DAILY@06 PO 03/14/17 06:00 03/25/17 06:00 Sodium Chloride (NS Flush) DAILY IVF 03/13/17 09:00 03/18/17 09:22 Sodium Chloride (NS Flush) UNSCH PRN IVF SEE PROTOCOL 03/13/17 08:00 03/14/17 09:13 Sodium Chloride (NS Flush) 2 ml UNSCH PRN IV FLUSH FLUSH AFTER USING IV ACCESS 03/13/17 08:30 03/14/17 09:13 Sodium Chloride (NS Flush) 2 ml BID IV FLUSH 03/13/17 09:00 03/25/17 13:09 Acetaminophen (Tylenol) 650 mg Q6H PRN PO PAIN 1-2 AND/OR FEVER >101F 03/13/17 08:30 03/25/17 13:27 Acetaminophen/ Hydrocodone Bitart (Hibbs 5-325 Mg) 1 tab Q4H PRN PO PAIN SCALE 3 TO 5 03/13/17 08:30 03/24/17 20:36 Ondansetron HCl (Zofran Inj) 4 mg Q6H PRN IV NAUSEA OR VOMITING 03/13/17 08:30 03/21/17 14:29 Docusate Sodium (Colace) 100 mg BID PO 03/13/17 09:00 03/15/17 09:42 Miscellaneous Information 1 Q361D XX 03/13/17 08:30 03/14/17 09:14 Chlorhexidine Gluconate (Chlorhexidine 2% Cloth) Taper DAILY@04 TOP 03/14/17 04:00 03/10/18 03:59 03/19/17 00:04 Multivitamins 1 tab 1 tab DAILY PO 03/13/17 11:30 03/25/17 13:08 Ceftriaxone Sodium 2000 mg/ Sodium Chloride 100 ml @ 200 mls/hr Q24H IV 03/14/17 13:00 03/25/17 13:09 Heparin Sodium/ Dextrose (Heparin-D5W Inj) 250 ml @ 0 mls/hr TITRATE IV 03/14/17 20:45 03/24/17 07:18 Patient Own Medication PT OWN MED: Ursod... BID PO 03/15/17 13:00 03/25/17 09:00 Diltiazem HCl (Cardizem) 60 mg TID PO 03/19/17 18:00 03/25/17 13:07 Calcium Carbonate (Oscal) 1,000 mg TID PO 03/20/17 09:00 03/25/17 17:22 Bumetanide 1 mg 1 mg BID@09,18 IV PUSH 03/20/17 18:00 03/25/17 13:09 Sodium Chloride (NS 1000 ml Inj) 1,000 ml @ 200 mls/hr Q5H PRN IV WITH DIALYSIS 03/21/17 11:22 03/22/17 15:21 Heparin Sodium (Porcine) (Heparin Inj) UNSCH PRN .XX WITH DIALYSIS 03/21/17 11:30 03/25/17 12:26 Gentamicin Sulfate (Gentamicin (Dialysis) Inj) 20 mg UNSCH PRN IV WITH DIALYSIS 03/21/17 11:30 03/25/17 12:27 Epoetin Derrell (Epogen Inj) 4,000 units UNSCH PRN IV WITH DIALYSIS 03/21/17 11:30 03/25/17 12:25 Pantoprazole Sodium (Protonix) 40 mg DAILY PO 03/24/17 11:00 03/25/17 13:08 Calcium Carbonate (Tums Chew) 500 mg Q8HR PRN CHEW HEARTBURN 03/24/17 11:00 03/24/17 11:01 Vital Signs / I&O Vital Signs Date Time Temp Pulse Resp B/P Pulse Ox O2 Delivery O2 Flow Rate FiO2 03/25/17 16:00 98.0 73 18 94/51 92 03/25/17 13:03 98.2 106 20 103/57 95 03/25/17 08:00 98.5 82 18 126/62 97 03/25/17 07:00 65 03/25/17 04:00 98.2 76 18 128/63 99 03/25/17 00:00 97.7 74 18 120/62 94 03/24/17 20:23 72 03/24/17 20:00 97.8 76 18 123/60 93 I/O 03/24/17 03/24/17 03/24/17 03/25/17 03/25/17 03/25/17 07:00 15:00 23:00 07:00 15:00 23:00 Intake Total 432 ml 360 ml 240 ml 720 ml Output Total 500 ml 2300 ml Balance -68 ml 360 ml 240 ml -1580 ml Intake Oral 360 ml 360 ml 240 ml 720 ml IV Total 72 ml Output Urine Total 500 ml 300 ml Hemodialysis 2000 ml # Voids 3 1 # Bowel Movements 0 0 1 1 Physical Exam GENERAL: Has a dialysis catheter in place, anxious SKIN: Warm and dry. NECK: JVD normal - less than or equal to 5 cm H20. CARDIOVASCULAR: Regular rate and rhythm without murmurs, gallops or rubs. RESPIRATORY: Normal breath sounds - equal bilaterally. No accessory muscle use. No wheezes, rales or rubs. PERIPHERY: No cyanosis or edema. PSYCH: no suicidal, anxious [employer]: grossly normal Laboratory Laboratory Tests Test 03/24/17 03/25/17 03/25/17 22:16 06:30 06:50 Activated Partial 50.0 SEC 56.6 SEC Thromboplast Time White Blood Count 9.5 TH/MM3 Red Blood Count 3.31 MIL/MM3 Hemoglobin 9.6 GM/DL Hematocrit 29.2 % Mean Corpuscular Volume 88.2 FL Mean Corpuscular Hemoglobin 29.0 PG Mean Corpuscular Hemoglobin 32.9 % Concent Red Cell Distribution Width 16.9 % Platelet Count 40 TH/MM3 Mean Platelet Volume 7.8 FL Sodium Level 131 MEQ/L Potassium Level 3.5 MEQ/L Chloride Level 90 MEQ/L Carbon Dioxide Level 31.1 MEQ/L Anion Gap 10 MEQ/L Blood Urea Nitrogen 18 MG/DL Creatinine 3.16 MG/DL Estimat Glomerular Filtration 14 ML/MIN Rate Random Glucose 203 MG/DL Calcium Level 8.4 MG/DL Assessment and Plan Problem List: (1) Atrial flutter with rapid ventricular response (2) Elevated troponin (3) S/P AVR (4) Altered mental status (5) Encephalopathy (6) Diabetes (7) Hyperlipidemia (8) NATALIA (acute kidney injury) (9) Streptococcal bacteremia Assessment and Plan ON dialysis; secondary to renal emboli or endocarditis induced real disease?? Bacteremia has cleared. Problem Qualifiers (1) Altered mental status: Josep Monsalve MD March 25, 2017 18:45
[2017-03-25] MEDS: HEPARIN-D5W INJ 250 ML IV SCH (20:20)
[2017-03-25] MEDS: ATORVASTATIN 10 MG TAB PO SCH (20:21)
[2017-03-25] MEDS: ACETAMINOPHEN/HYDROcodone 325 MG/5 MG TAB PO PRN (20:21)
[2017-03-25] MEDS: INSULIN DETEMIR 100 UNITS/ML VIAL SQ SCH (20:21)
[2017-03-26] VITALS (9 sets, daily range): BP systolic 108–132; BP diastolic 54–68; PULSE 58–84; RESP 16–20; TEMP 97.2–98.2; O2SAT 92–98
[2017-03-26] MEDS: CHLORHEXIDINE GLUCONATE 2 % 1 PACK (2 CLOTHS) TOP SCH (04:00)
[2017-03-26] MEDS: INSULIN ASPART SUPPLEMENTAL SCALE SQ SCH ×4 (06:35→20:46)
[2017-03-26] MEDS: LEVOTHYROXINE SODIUM 75 MCG TAB PO SCH (06:35)
[2017-03-26 07:13] LABS: HEMATOCRIT 30.3 % (35.0-46.0); MEAN CELL VOLUME 88.6 FL (80.0-100.0); MEAN CORPUSCULAR HEMOGLOBIN 29.1 PG (27.0-34.0); MEAN CORPUSCULAR HGB CONC 32.8 % (32.0-36.0); PLATELET COUNT 28 TH/MM3 (150-450); RED BLOOD COUNT 3.42 MIL/MM3 (4.00-5.30); RED CELL DISTRIBUTION WIDTH 17.5 % (11.6-17.2); WHITE BLOOD COUNT 9.5 TH/MM3 (4.0-11.0)
[2017-03-26 07:14] LABS: REVIEW FLAG FINAL
[2017-03-26] MEDS: SENNOSIDES 8.6 MG TAB PO SCH ×2 (08:44→20:47)
[2017-03-26] MEDS: DOCUSATE SODIUM 100 MG CAP PO SCH ×2 (08:44→20:49)
[2017-03-26] MEDS: URSODIOL PO SCH ×2 (08:45→20:48)
[2017-03-26] MEDS: MULTIVITAMIN TAB PO SCH (08:49)
[2017-03-26] MEDS: BUMETANIDE INJ 1 MG/4 ML VIAL IV PUSH SCH ×2 (08:49→17:31)
[2017-03-26] MEDS: DILTIAZEM HCL 60 MG TAB PO SCH ×3 (08:49→17:31)
[2017-03-26] MEDS: PANTOPRAZOLE SOD 40 MG DELAYED RELEASE TAB PO SCH (08:49)
[2017-03-26] MEDS: CALCIUM CARBONATE 1.25 GM (CA 500 MG) TAB PO SCH ×3 (08:49→17:31)
[2017-03-26] MEDS: SODIUM CHLORIDE 0.9% FLUSH 10 ML FLUSH IV FLUSH SCH ×2 (08:49→20:48)
[2017-03-26] MEDS: ONDANSETRON HCL 4 MG/2 ML VIAL IV PRN (08:50)
[2017-03-26] MEDS: SODIUM CHLORIDE 0.9% FLUSH 10 ML FLUSH IVF SCH (08:50)
--- NOTE | 2017-03-26 10:53 | HHI.PR ---
Subjective Remarks Follow up infective endocarditis/Renal failure 03/25/17-patient seen and examined; alert and oriented x 3; afebrile. NO acute event overnight 03/26/17-patient seen and examined, denies any chest pain or shortness of breath. Currently afebrile. Family by the bedside. Objective Vitals Vital Signs Date Time Temp Pulse Resp B/P Pulse Ox O2 Delivery O2 Flow Rate FiO2 03/26/17 08:00 98.2 78 20 132/61 98 03/26/17 04:00 97.6 60 16 116/54 94 03/26/17 00:00 98.1 66 18 108/68 95 03/25/17 20:00 98.3 75 20 116/60 96 Automatic Cuff 03/25/17 19:53 75 03/25/17 16:00 98.0 73 18 94/51 92 03/25/17 13:03 98.2 106 20 103/57 95 I/O 03/25/17 03/25/17 03/25/17 03/26/17 03/26/17 03/26/17 07:00 15:00 23:00 07:00 15:00 23:00 Intake Total 240 ml 720 ml 240 ml Output Total 2300 ml 250 ml Balance 240 ml -1580 ml -10 ml Intake Oral 240 ml 720 ml 240 ml Output Urine Total 300 ml 250 ml Hemodialysis 2000 ml # Voids 1 # Bowel Movements 1 1 1 Result Diagram: 03/26/17 0547 03/25/17 0650 Objective Remarks GENERAL: NAD SKIN: Warm and dry. HEAD: Normocephalic. EYES: No scleral icterus. No injection or drainage. NECK: Supple, trachea midline. No JVD or lymphadenopathy. CARDIOVASCULAR: Regular rate and rhythm with murmurs II/ BRENDA RESPIRATORY: Breath sounds equal bilaterally. No accessory muscle use. GASTROINTESTINAL: Abdomen soft, non-tender, nondistended. MUSCULOSKELETAL: No cyanosis, or edema. BACK: Nontender without obvious deformity. No CVA tenderness. Date of Insertion: Mar 13, 2017 Line: Central Venous Catheter Side: Right Location: Internal, Jugular A/P Problem List: (1) Prosthetic valve endocarditis ICD Code: T82.6XXA Status: Acute (2) Atrial flutter with rapid ventricular response ICD Code: I48.92 Status: Acute Assessment and Plan 76 yrs old female with Infective Endocarditis at Prosthetic Valve Strep Bacteremia (Strep V) Continue Rocephin and appreciate input from ID Follow culture Cardiology ff Encephalopathy -resolved NATALIA On Dialysis per Nephrology Had HD on 03/25 and continue to monitor BUN/creatinine A-fib with RVR Controlled on a Diltiazem PO Continue Heparin Drip Cardiology ff Anemia H&H stable and continue to monitor CBC Hyperlipidemia Statin Biliary Cirrhosis, state IV Spironolactone continued Lasix and Mckenna continued DM2 SSI Long acting insulins Diabetic Diet Follow blood sugars Hypothyroidism Continue supplementation GERD Hiatal Hernia Continue PPI DVT Prophylaxis SCDs and Heparin drip Aubrey Snyder MD March 26, 2017 10:53
[2017-03-26 11:59] LABS: BICARBONATE 31.9 MEQ/L (21.0-32.0); POTASSIUM 3.6 MEQ/L (3.5-5.1)
[2017-03-26] MEDS: cefTRIAXone INJ 2,000 MG in SODIUM CHLORIDE 0.9% INJ 100 ML IV SCH (12:55)
--- NOTE | 2017-03-26 14:47 | HHI.NPPN ---
Subjective History of Present Illness 76 Year old W Female with ARF, Biliary Cirrhosis, streptococcus Viridans sepsis Additional Remarks Patient is alert, no SOB, started eating better. Review of Systems General Constitutional: Fatigue Objective Data Data 03/25/17 03/26/17 19:00 07:00 Intake Total 720 ml 240 ml Output Total 2300 ml 250 ml Balance -1580 ml -10 ml Intake Oral 720 ml 240 ml Output Urine Total 300 ml 250 ml Hemodialysis 2000 ml # Bowel Movements 1 1 Vital Signs Date Time Temp Pulse Resp B/P Pulse Ox O2 Delivery O2 Flow Rate FiO2 03/26/17 08:00 98.2 78 20 132/61 98 03/26/17 08:00 84 03/26/17 04:00 97.6 60 16 116/54 94 03/26/17 00:00 98.1 66 18 108/68 95 03/25/17 20:00 98.3 75 20 116/60 96 Automatic Cuff 03/25/17 19:53 75 03/25/17 16:00 98.0 73 18 94/51 92 -: 03/26/17 0547 03/26/17 1035 Physical Exam General Appearance: No Acute Distress, Comfortable, Anxious Neck Neck Exam: Neck Supple Pulmonary Resp Exam: Breath Sounds Equal, No Distress, Rhonchi, Decreased Bases Cardiology CV Exam: Irregular Gastrointestinal/Abdomen GI Exam: Soft, Non-Tender, Bowel Sounds Present Extremeties Extremities Exam: Trace Edema Neurologic Neuro Exam: Alert, Awake, Oriented Psychiatric Psych Exam: Appropriate Responses Assessment/Plan Problem List: (1) Acute renal failure Plan: This is ARF Creatinine was worse and started on dialysis. Non oliguric, on Bumex. HD done yesterday (2) Streptococcal bacteremia Plan: Infectious disease is following she is on broad-spectrum antibiotic ceftriaxone (3) Atrial flutter with rapid ventricular response Plan: Off diltiazem (4) Biliary liver cirrhosis Plan: Follows with GI (5) Thrombocytopenia Plan: HIT ordered Problem Qualifiers (1) Acute renal failure: Qualified Code: N17.9 - Acute renal failure, unspecified acute renal failure type Molly Peng MD March 26, 2017 14:47
--- NOTE | 2017-03-26 16:01 | HHI.IDPN ---
Note Infectious Disease Note Patient feels okay. On O2 via nasal canula. No nausea. Denies SOB. No chills, No CP. Afebrile. Plate count extremely low. 03/19 - Blood culture no growth. 03/14 - Blood culture has no growth. 03/13 - Blood cultures has strep viridans. 03/12 - Blood cultures has strep viridans. 03/11 - Blood cultures has strep viridans. 03/17 - EGD procedure. No varices. Presented to emergency department on 03/11 with generalized weakness. The patient previously presented to [facility] one week ago after three days of generalized weakness and diarrhea. She was evaluated and the white blood cell count was normal and she was afebrile. PAST MEDICAL HISTORY 1. Biliary cirrhosis 2. Diabetes mellitus 3. Appendectomy 4. Hysterectomy. 5. Aortic valve replacement in 2012 with Bovine valve. 6. Gastroesophageal reflux disease 7. Bilateral cataract surgery, one was done February 2017 and the first was January 2017. ALLERGIES AMPICILLIN LEAD TO SHORTNESS OF BREATH. PATIENT ABLE TO TOLERATE AMOXICILLIN. LEVAQUIN SULFA MACROBID IODINE CONTRAST MEDIA. HEART DISEASE. ANTIBIOTICS: Ceftriaxone. SOCIAL HISTORY No tobacco use. Social alcohol use. No illicit drugs. OBJECTIVE: Vital Signs Date Time Temp Pulse Resp B/P Pulse Ox O2 Delivery O2 Flow Rate FiO2 03/26/17 11:37 98 Nasal Cannula 2.00 03/26/17 08:00 98.2 78 20 132/61 98 03/26/17 08:00 84 03/26/17 04:00 97.6 60 16 116/54 94 03/26/17 00:00 98.1 66 18 108/68 95 03/25/17 20:00 98.3 75 20 116/60 96 Automatic Cuff 03/25/17 19:53 75 03/25/17 16:00 98.0 73 18 94/51 92 03/25/17 03/25/17 03/26/17 14:59 22:59 06:59 Intake Total 720 ml 240 ml Output Total 2300 ml 250 ml Balance -1580 ml -10 ml Intake Oral 720 ml 240 ml Output Urine Total 300 ml 250 ml Hemodialysis 2000 ml # Bowel Movements 1 1 Laboratory Tests Test 03/25/17 03/26/17 06:50 05:47 White Blood Count 9.5 TH/MM3 9.5 TH/MM3 Red Blood Count 3.31 MIL/MM3 3.42 MIL/MM3 Hemoglobin 9.6 GM/DL 9.9 GM/DL Hematocrit 29.2 % 30.3 % Mean Corpuscular Volume 88.2 FL 88.6 FL Mean Corpuscular Hemoglobin 29.0 PG 29.1 PG Mean Corpuscular Hemoglobin 32.9 % 32.8 % Concent Red Cell Distribution Width 16.9 % 17.5 % Platelet Count 40 TH/MM3 28 TH/MM3 Mean Platelet Volume 7.8 FL 8.4 FL Laboratory Tests Test 03/25/17 03/26/17 06:50 10:35 Sodium Level 131 MEQ/L 133 MEQ/L Potassium Level 3.5 MEQ/L 3.6 MEQ/L Chloride Level 90 MEQ/L 92 MEQ/L Carbon Dioxide Level 31.1 MEQ/L 31.9 MEQ/L Anion Gap 10 MEQ/L 9 MEQ/L Blood Urea Nitrogen 18 MG/DL 13 MG/DL Creatinine 3.16 MG/DL 2.46 MG/DL Estimat Glomerular Filtration 14 ML/MIN 19 ML/MIN Rate Random Glucose 203 MG/DL 196 MG/DL Calcium Level 8.4 MG/DL 7.9 MG/DL IMAGING: Chest X-Ray 03/21/17 0000 Signed Impressions: Service Date/Time: Tuesday, March 21, 2017 09:16 - CONCLUSION: Bibasilar opacities characteristic of pleural effusions with associated volume loss and/or consolidation. The perihilar interstitial opacities are suggestive of pulmonary edema. Reynaldo Higgins MD Renal Ultrasound 03/18/17 0000 Signed Impressions: Service Date/Time: Saturday, March 18, 2017 17:35 - CONCLUSION: 1. Echogenic kidneys bilaterally compatible with medical renal disease. 2. Small volume ascites Dimitrios Lopez MD Chest X-Ray 03/15/17 0600 Signed Impressions: Service Date/Time: Wednesday, March 15, 2017 04:56 - CONCLUSION: Worsening consolidation and effusion at the left lung base. Reynaldo Lazar MD Neck CTA 03/12/17 0000 Signed Impressions: Service Date/Time: Sunday, March 12, 2017 20:22 - CONCLUSION: Slight atherosclerosis of both carotid bifurcations without narrowing. Dominant left vertebral artery. Reynaldo Lazar MD Head CTA 03/12/17 0000 Signed Impressions: Service Date/Time: Sunday, March 12, 2017 20:22 - CONCLUSION: Normal intracranial arteries. Reynaldo Lazar MD Head CT 03/12/17 0000 Signed Impressions: Service Date/Time: Sunday, March 12, 2017 19:02 - CONCLUSION: Negative noncontrast head CT. Ryenaldo Lazar MD PHYSICAL EXAMINATION GENERAL: Awake and alert. HEENT: No icterus. No conjunctival erythema. Oropharynx no thrush. NECK: Supple without adenopathy or swelling. No JVD. LUNGS: Clear breath sounds. HEART: Irregular S1S2. 2/6 blowing systolic ejection murmur at the left sternal border and also at the upper right sternal border. ABDOMEN: Bowel sounds present, soft, no tenderness. EXTREMITIES: No clubbing or cyanosis. Ecchymosis of the hands. No peripheral embolic lesions. NEUROLOGIC: Nonfocal. SKIN: No diffuse rash. PSYCHIATRIC: Calm, pleasant and cooperative. IMPRESSION 1. Bacteremia due to Viridans Strep. Blood cultures now negative. 2. Bioprosthetic aortic valve endocarditis. 3. Sepsis. strep viridans group. 4. Altered mental status secondary to Sepsis. Resolved. 5. Leukocytosis. Improved. 6. Acute kidney disease. Worsened kidney function. Probably related to aminoglycoside/dehydration. now getting dialysed. Given the presence of vegetation she is at risk of complications such as valve malfunction and emboli. 7. Multiple antibiotic allergies. 8. Thrombocytopenia worse. RECOMMENDATIONS 1. Continue Ceftriaxone IV until April 25, 2017. 2. Hematology consult for thrombocytopenia. 3. Discharge disposition per renal decision about renal failure and decision about group home catheter placement and Hematology consult recommendations. Need to arrange for follow up with ID outpatient Dr. Martinez. Edwin Harrison MD March 26, 2017 16:01
--- NOTE | 2017-03-26 16:06 | HHI.FF ---
Infusion Therapy Location of Infusion Therapy: Home [facility] Care IV Infusion Order Patient Information Patient Weight 77.4 kg Diagnosis: (1) Streptococcal bacteremia (2) Prosthetic valve endocarditis Coded Allergies: Heparin (Verified Allergy, Severe, thrombocytopenia, 03/31/17) HIT, CHAPO+ Macrobid (Unverified Allergy, Severe, itching, 03/11/17) Adhesives (Verified Allergy, Intermediate, REDNESS, ITCHING, 03/11/17) Ampicillin (Verified Allergy, Mild, 03/11/17) Contrast Media (Verified Allergy, Mild, 03/11/17) Iodine (Verified Allergy, Mild, 03/11/17) Levaquin (Verified Allergy, Mild, 03/11/17) Sulfa (Verified Allergy, Mild, 03/11/17) *MDRO Multi-Drug Resistant Organism (Verified Adverse Reaction, Unknown, ) CLEARED PER INFECTION CONTROL PROTOCOL 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 [] May leave port accessed during therapy. [] May leave peripheral site accessed for duration of therapy. [x] If patient has SOB or respiratory distress, check oxygen saturation. If less than 90% or clinical signs of respiratory distress, administer oxygen at 2 L/min. via nasal cannula and notify physician. [x] Anaphylaxis/Reaction orders: * Stop infusion. * Keep IV line open with saline flush. * Notify physician. * Monitor vital signs every 15 minutes until symptoms resolve. * Check Oxygen saturation; Oxygen at 2 L/min. via nasal cannula if less than 90% or clinical signs of respiratory distress. * Administer diphenhydramine (Benadryl) 25 mg IV STAT, (unless patient has received as pre-med). May repeat once, if necessary. * Solu-Cortef 250 mg IVP over 30-60 seconds, use 100 mg vials for each dissolution. * Epinephrine (1mg/1 ml) 0.3 mg subcutaneously or IVP now with any signs of respiratory distress. * Check with physician for new additional pre-med orders if patient is re- challenged or re-treated. [x] May remove PICC line when treatment complete, after confirming with Physician. [x] If the patient is admitted to the hospital, the ED, or transferred via [facility] , complete transfer form including medication reconciliation order sheet. Laboratory Tests Weekly Labs: BMP, CBC w/diff (Follow up with DR China Martinez office) Edwin Harrison MD March 26, 2017 16:06
--- NOTE | 2017-03-26 18:23 | PD.CARD.PN ---
Subjective Subjective Remarks no complaints feels better Objective Medications Administered Medications Medications (Trade) Dose Ordered Sig/Tunde Route PRN Reason Start Time Stop Time Status Last Admin Dose Admin Atorvastatin Calcium (Lipitor) 10 mg HS PO 03/12/17 21:00 03/25/17 20:21 Levothyroxine Sodium (Synthroid) 75 mcg DAILY@06 PO 03/14/17 06:00 03/26/17 06:35 Sodium Chloride (NS Flush) DAILY IVF 03/13/17 09:00 03/26/17 08:50 Sodium Chloride (NS Flush) UNSCH PRN IVF SEE PROTOCOL 03/13/17 08:00 03/14/17 09:13 Sodium Chloride (NS Flush) 2 ml UNSCH PRN IV FLUSH FLUSH AFTER USING IV ACCESS 03/13/17 08:30 03/14/17 09:13 Sodium Chloride (NS Flush) 2 ml BID IV FLUSH 03/13/17 09:00 03/26/17 08:49 Acetaminophen (Tylenol) 650 mg Q6H PRN PO PAIN 1-2 AND/OR FEVER >101F 03/13/17 08:30 03/25/17 13:27 Acetaminophen/ Hydrocodone Bitart ([place] 5-325 Mg) 1 tab Q4H PRN PO PAIN SCALE 3 TO 5 03/13/17 08:30 03/25/17 20:21 Ondansetron HCl (Zofran Inj) 4 mg Q6H PRN IV NAUSEA OR VOMITING 03/13/17 08:30 03/26/17 08:50 Docusate Sodium (Colace) 100 mg BID PO 03/13/17 09:00 03/15/17 09:42 Miscellaneous Information 1 Q361D XX 03/13/17 08:30 03/14/17 09:14 Chlorhexidine Gluconate (Chlorhexidine 2% Cloth) Taper DAILY@04 TOP 03/14/17 04:00 03/10/18 03:59 03/19/17 00:04 Multivitamins 1 tab 1 tab DAILY PO 03/13/17 11:30 03/26/17 08:49 Ceftriaxone Sodium 2000 mg/ Sodium Chloride 100 ml @ 200 mls/hr Q24H IV 03/14/17 13:00 03/26/17 12:55 Heparin Sodium/ Dextrose (Heparin-D5W Inj) 250 ml @ 0 mls/hr TITRATE IV 03/14/17 20:45 03/25/17 20:20 Patient Own Medication PT OWN MED: Ursod... BID PO 03/15/17 13:00 03/26/17 08:45 Diltiazem HCl (Cardizem) 60 mg TID PO 03/19/17 18:00 03/26/17 17:31 Calcium Carbonate (Oscal) 1,000 mg TID PO 03/20/17 09:00 03/26/17 17:31 Bumetanide 1 mg 1 mg BID@09,18 IV PUSH 03/20/17 18:00 03/26/17 17:31 Sodium Chloride (NS 1000 ml Inj) 1,000 ml @ 200 mls/hr Q5H PRN IV WITH DIALYSIS 03/21/17 11:22 03/22/17 15:21 Heparin Sodium (Porcine) (Heparin Inj) UNSCH PRN .XX WITH DIALYSIS 03/21/17 11:30 03/25/17 12:26 Gentamicin Sulfate (Gentamicin (Dialysis) Inj) 20 mg UNSCH PRN IV WITH DIALYSIS 03/21/17 11:30 03/25/17 12:27 Epoetin Derrell (Epogen Inj) 4,000 units UNSCH PRN IV WITH DIALYSIS 03/21/17 11:30 03/25/17 12:25 Insulin Detemir (Levemir Inj) 10 units HS SQ 03/24/17 21:00 03/25/17 20:21 Pantoprazole Sodium (Protonix) 40 mg DAILY PO 03/24/17 11:00 03/26/17 08:49 Calcium Carbonate (Tums Chew) 500 mg Q8HR PRN CHEW HEARTBURN 03/24/17 11:00 03/24/17 11:01 Vital Signs / I&O Vital Signs Date Time Temp Pulse Resp B/P Pulse Ox O2 Delivery O2 Flow Rate FiO2 03/26/17 17:24 98 Nasal Cannula 2.00 03/26/17 11:37 98 Nasal Cannula 2.00 03/26/17 08:00 98.2 78 20 132/61 98 03/26/17 08:00 84 03/26/17 04:00 97.6 60 16 116/54 94 03/26/17 00:00 98.1 66 18 108/68 95 03/25/17 20:00 98.3 75 20 116/60 96 Automatic Cuff 03/25/17 19:53 75 I/O 03/25/17 03/25/17 03/25/17 03/26/17 03/26/17 03/26/17 07:00 15:00 23:00 07:00 15:00 23:00 Intake Total 240 ml 720 ml 240 ml 142 ml Output Total 2300 ml 250 ml 200 ml Balance 240 ml -1580 ml -10 ml -58 ml Intake Oral 240 ml 720 ml 240 ml IV Total 142 ml Output Urine Total 300 ml 250 ml 200 ml Hemodialysis 2000 ml # Voids 1 # Bowel Movements 1 1 1 1 Physical Exam GENERALslim elderly SKIN: Warm and dry. NECK: JVD normal - less than or equal to 5 cm H20. CARDIOVASCULAR: Regular rate and rhythm without murmurs, gallops or rubs. RESPIRATORY: Normal breath sounds - equal bilaterally. No accessory muscle use. No wheezes, rales or rubs. PERIPHERY: No cyanosis or edema. PSYCH: no suicidal, anxious OPTICAL SCIENTIST: grossly normal Laboratory Laboratory Tests Test 03/26/17 03/26/17 05:47 10:35 White Blood Count 9.5 TH/MM3 Red Blood Count 3.42 MIL/MM3 Hemoglobin 9.9 GM/DL Hematocrit 30.3 % Mean Corpuscular Volume 88.6 FL Mean Corpuscular Hemoglobin 29.1 PG Mean Corpuscular Hemoglobin 32.8 % Concent Red Cell Distribution Width 17.5 % Platelet Count 28 TH/MM3 Mean Platelet Volume 8.4 FL Activated Partial 56.0 SEC Thromboplast Time Sodium Level 133 MEQ/L Potassium Level 3.6 MEQ/L Chloride Level 92 MEQ/L Carbon Dioxide Level 31.9 MEQ/L Anion Gap 9 MEQ/L Blood Urea Nitrogen 13 MG/DL Creatinine 2.46 MG/DL Estimat Glomerular Filtration 19 ML/MIN Rate Random Glucose 196 MG/DL Calcium Level 7.9 MG/DL Assessment and Plan Problem List: (1) Atrial flutter with rapid ventricular response (2) Elevated troponin (3) S/P AVR (4) Altered mental status (5) Encephalopathy (6) Diabetes (7) Hyperlipidemia (8) NATALIA (acute kidney injury) (9) Streptococcal bacteremia Assessment and Plan Feels better responding to [facility] Problem Qualifiers (1) Altered mental status: Josep Monsalve MD March 26, 2017 18:23
[2017-03-26] MEDS ORDERED: MISCELLANEOUS PHARMACY INFORMATION XX ONE (20:15)
[2017-03-26] MEDS: INSULIN DETEMIR 100 UNITS/ML VIAL SQ SCH (20:46)
[2017-03-26] MEDS: ACETAMINOPHEN/HYDROcodone 325 MG/5 MG TAB PO PRN (20:47)
[2017-03-26] MEDS: ATORVASTATIN 10 MG TAB PO SCH (20:49)
[2017-03-26] MEDS ORDERED: NS IV SCH (22:15)
[2017-03-26] MEDS ORDERED: ARGATROBAN IV SCH (22:15)
[2017-03-26 23:55] LABS: APTT (PATIENT) 55.1 SEC (24.3-30.1); INTERNATIONAL NORMALIZED RATIO 2.5 RATIO; PROTHROMBIN TIME - PATIENT 28.2 SEC (9.8-11.6)
[2017-03-27] VITALS (8 sets, daily range): BP systolic 110–132; BP diastolic 50–69; PULSE 62–88; RESP 18–20; TEMP 97.3–98.1; O2SAT 93–97
--- NOTE | 2017-03-27 00:03 | RADRPT ---
EXAM DATE/TIME: 03/26/2017 21:28 [facility] COMPARISON: No previous studies available for comparison. INDICATIONS : Bilateral leg edema. MEDICAL HISTORY : Hypercholesterolemia. Congestive heart failure. Osteoporosis. Thyroid disease. Bilateral cataracts. H TN. Dyspnea. GERD. Hiatal hernia. Stage IV renal disease. Chronic liver disease. Arthritis. Diabete s. Cirrhosis. MRSA. Anticoagulant therapy, Herapin. SURGICAL HISTORY : Coronary artery stent.Cholecystectomy. Appendectomy.Atrial valve replacement. Venous strip. Hysterect patricia. Meniscus repair. ENCOUNTER: Initial ACUITY: 3 days PAIN SCORE: 0/10 LOCATION: Bilateral leg. TECHNIQUE: Venous ultrasound of the left and right leg was performed from the inguinal ligament to the proximal calf. Real-time, color Doppler and spectral tracing, compression and augmentation techniques were us ed. FINDINGS: RIGHT LEG: There is normal compressibility of the deep venous system from the inguinal region to the proximal ca lf. No echogenic clot is seen in the lumen of the common femoral, femoral, popliteal, and posterior tibial veins. There is a normal response of the venous system to proximal and distal augmentation an d respiration. LEFT LEG: There is normal compressibility of the deep venous system from the inguinal region to the proximal ca lf. No echogenic clot is seen in the lumen of the common femoral, femoral, popliteal, and posterior tibial veins. There is a normal response of the venous system to proximal and distal augmentation an d respiration. CONCLUSION: 1. No DVT. 2. Subcutaneous edema involving both calves. Denton Parker Jr., MD on March 27, 2017 at 0:00 Board Certified Radiologist. This report was verified electronically.
--- NOTE | 2017-03-27 00:04 | RADRPT ---
EXAM DATE/TIME: 03/26/2017 21:49 [facility] COMPARISON: No previous studies available for comparison. INDICATIONS : Right arm swelling. MEDICAL HISTORY : Congestive heart failure. Hypercholesterolemia. Osteoporosis. Thyroid disease. Bilateral cataracts. H TN. Dyspnea. GERD. Hiatal hernia. Stage IV renal disease. Chronic liver disease. Arthritis. Diabete s. Cirrhosis. MRSA. Anticoagulant therapy, Herapin. SURGICAL HISTORY : Coronary artery stent. Cholecystectomy. Appendectomy. Atrial valve replacement. Venous strip. Hyster ectomy. Meniscus repair. ENCOUNTER: Initial ACUITY: 3 days PAIN SCORE: 2/10 LOCATION: Right arm. FINDINGS: There is spontaneous flow documented in the brachial, basilic, cephalic, axillary, and subclavian vei ns. The vessels are compressible and augmentation response is documented. No filling defects are se en. The flow is phasic with respiration. Direction of flow in the jugular vein is caudal. CONCLUSION: Normal examination. Denton Parker Jr., MD on March 27, 2017 at 0:02 Board Certified Radiologist. This report was verified electronically.
[2017-03-27] MEDS: CHLORHEXIDINE GLUCONATE 2 % 1 PACK (2 CLOTHS) TOP SCH (04:00)
[2017-03-27] MEDS: ACETAMINOPHEN 325 MG TAB PO PRN (05:29)
[2017-03-27] MEDS: LEVOTHYROXINE SODIUM 75 MCG TAB PO SCH (05:29)
[2017-03-27 06:27] LABS: AUTOMATED NEUTROPHIL # 7.9 TH/MM3 (1.8-7.7); BASOPHIL # 0.1 TH/MM3 (0-0.2); BASOPHIL % 0.8 % (0.0-2.0); EOSINOPHIL # 0.1 TH/MM3 (0-0.4); EOSINOPHIL % 0.8 % (0.0-4.0); LYMPH % 8.8 % (9.0-44.0); LYMPHOCYTE # 0.8 TH/MM3 (1.0-4.8); MEAN CORPUSCULAR HEMOGLOBIN 30.6 PG (27.0-34.0); MEAN CORPUSCULAR HGB CONC 34.8 % (32.0-36.0); MONO % 6.1 % (0.0-8.0); NEUT % 83.5 % (16.0-70.0); PLATELET COUNT 24 TH/MM3 (150-450); RED BLOOD COUNT 3.41 MIL/MM3 (4.00-5.30); RED CELL DISTRIBUTION WIDTH 17.3 % (11.6-17.2); WHITE BLOOD COUNT 9.4 TH/MM3 (4.0-11.0)
[2017-03-27 06:35] LABS: HEMO FLAGS AUTO DIFF
[2017-03-27 06:52] LABS: BICARBONATE 34.2 MEQ/L (21.0-32.0); POTASSIUM 3.3 MEQ/L (3.5-5.1)
[2017-03-27 06:54] LABS: INDIRECT BILIRUBIN 0.3 MG/DL (0.0-0.8); TOTAL BILIRUBIN ADULT 1.1 MG/DL (0.2-1.0)
--- NOTE | 2017-03-27 06:58 | MB ---
cc: VADIM HURST MD,TANK Recio M.D. DATE OF CONSULTATION 03/26/2017 DATE OF [address] Hurst CHIEF COMPLAINT Dr. Hurst requested consultation for Mrs. Jerome regarding worsening thrombocytopenia. HISTORY OF PRESENT ILLNESS Mrs. Jerome is a 76-year-old woman with a history of severe aortic stenosis status post AVR bovine valve. She has also primary biliary cirrhosis, diabetes and presented with generalized weakness on 03/11/2017. Evaluation showed bradycardia and blood culture positive. 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 She was seen by infectious disease and her endocarditis is currently managed with ceftriaxone. She is due to continue ceftriaxone. During the course of hospitalization, she developed sepsis, acute mental status change, acute kidney disease with worsening renal function probably related to aminoglycoside. She had evidence of congestive heart failure. Clinically, she has improved. She has been discharged from the ICU. She has a history of thrombocytopenia reported by the patient and her during her cataract surgery. Review of the electronic medical record shows thrombocytopenia dating back to 2010. Her platelet count is 118,000. There are very few events where her platelet count was normal. Her platelet count on admission was 148,000. It continued to trend down and her platelet count is 28,000 at the time of the consultation. She is noted to have started heparin protocol on 03/14 as well as March 17. She had gradual decrease of platelet count temporarily related to starting heparin protocol. She denies any bleeding. She denies any history of thromboses. She feels that her shortness of breath is actually getting better. She has some subtle swelling in the dependent portion of the right arm. She has some bilateral lower leg swelling which is chronic. She has no prior history of venous thromboembolic event. She has had no fevers. She has chronic anemia with stable hemoglobin. Her renal function had worsened during the hospitalization and is stable now at an estimate glomerular filtration rate of 19%. Sodium is mildly decreased at 133. She has multiple antibiotic allergies. The choice of ceftriaxone is managed by the infectious disease. Hematology is consulted for the thrombocytopenia. Despite the worsening thrombocytopenia, she denies any bleeding. PAST MEDICAL HISTORY 1. Aortic stenosis 2. Primary biliary cirrhosis 3. Diabetes 4. Chronic thrombocytopenia 5. Acute renal failure 6. Bioprosthetic valve 7. Endocarditis PAST SURGICAL HISTORY 1. Appendectomy 2. Aortic valve replacement 3. Hysterectomy 4. Central line placement right IJ FAMILY HISTORY No family history of cancer. Mother and father in their 80s. Mother of complications of a hospitalization. Father of heart disease. SOCIAL HISTORY She is and lives with her . Denies any tobacco or illicit drug use. She drinks alcohol socially. ALLERGIES MACROBID, ADHESIVE, AMPICILLIN, CONTRAST MEDIA, IODINE, LEVAQUIN, AND SULFA. CURRENT MEDICATIONS 1. Protonix 2. Levemir 3. Glucagon 4. Insulin 5. Erythropoietin 6. Bumex 7. Os-Lucien 8. Cardizem 9. Ceftriaxone 10. Synthroid 11. Multivitamin 12. Colace 13. Ondansetron 14. [place] p.r.n. 15. Lipitor 16. DuoNebs PHYSICAL EXAM VITAL SIGNS: Temperature 97.2 heart rate 58, respiratory rate 20, blood pressure 123/58, saturation 95%. GENERAL: Ms. Jerome is a well-developed, well-nourished petite appearing woman. She looks to be in no acute distress. HEAD, EYES, EARS, NOSE, AND THROAT: Her pupils are round and reactive to light and accommodation. Conjunctiva is pink. Petechia is noted. Oropharynx is clear except for occasional petechiae in the soft palate. NECK: Supple. There is some redness in the left external ear due to positioning, right neck IJ. LUNGS: Clear. CARDIOVASCULAR: Exam reveals a rate-controlled bradycardic rhythm. ABDOMEN: Benign. No hepatosplenomegaly appreciated. EXTREMITIES: Lower extremity with 2+ pitting edema. Good pulses. Arms with left hand malformed digits presumably from Thalidomide. On her right hand senile purpura on the dorsum of hand and swelling in the right upper arm and more in the dependent portions. LABORATORY DATA Hemoglobin 9.9, platelet count 28,000, serotonin release assay is pending. HIT antibody is pending. ASSESSMENT/PLAN Mrs. Jerome is a 76-year-old woman with multiple medical problems. She is admitted for generalized weakness and was found to have bioprosthetic area valve endocarditis. Her course was complicated by atrial fibrillation, rapid ventricular response, acute renal insufficiency and worsening thrombocytopenia. I am unable to exclude thrombocytopenia worsened associated with the heparin-induced thrombocytopenia antibody. I am concerned about right upper extremity deep vein thromboses and swelling in the right arm that is more prominent than the left. There is a central line in the right IJ. I will obtain Doppler ultrasound of the right upper extremity as well as lower extremity. She has got bilateral lower extremity swelling. We will continue anticoagulant therapy with heparin, although heparin products will be discontinued in light of the suspicion for heparin-induced thrombocytopenia. Argatroban is ordered. She has renal insufficiency. Despite her biliary cirrhosis, her bilirubin is 1.1 from March 21 and liver functions are normal. We will need to monitor PT/PTT throughout her course. Noted is the thrombocytopenia. Repeat CBC will be performed in the morning. We will check if platelet count is less than 20,000. A platelet transfusion will be offered post transfusion platelet count will be checked. PT/PTT, fibrinogen is ordered prior to starting the Argatroban. We will rule out DIC. She is, however, doing quite well clinically from the infection standpoint. Her subsequent blood cultures have been negative which makes this less likely. In light of the prosthetic aortic valve, other considerations include possibility of acquired von Willebrand deficiency. It may be high clearance that is producing the thrombocytopenia. However, the thrombocytopenia is temporarily related to starting the heparin and heparin-induced thrombocytopenia will need to be excluded. We will monitor closely for bleeding. She has no prior history of a bleeding disorder. Her questions were answered to her satisfaction. MD KIN Hale/TANJA /8:13 PM /6:42 AM
[2017-03-27] MEDS: INSULIN ASPART SUPPLEMENTAL SCALE SQ SCH ×4 (07:00→22:05)
[2017-03-27] MEDS: SODIUM CHLORIDE 0.9% FLUSH 10 ML FLUSH IVF SCH (07:55)
[2017-03-27 08:03] LABS: APTT (PATIENT) 85.4 SEC (24.3-30.1); PROTHROMBIN TIME - PATIENT 68.9 SEC (9.8-11.6)
[2017-03-27 08:06] LABS: INTERNATIONAL NORMALIZED RATIO 5.8 RATIO
[2017-03-27] MEDS: SENNOSIDES 8.6 MG TAB PO SCH ×2 (09:00→21:00)
[2017-03-27] MEDS: CALCIUM CARBONATE 1.25 GM (CA 500 MG) TAB PO SCH ×3 (09:00→18:40)
[2017-03-27] MEDS: DILTIAZEM HCL 60 MG TAB PO SCH ×3 (09:00→18:40)
[2017-03-27] MEDS: DOCUSATE SODIUM 100 MG CAP PO SCH ×2 (09:00→21:00)
[2017-03-27 09:02] LABS: BANDS 7 % (0-6); EOSINOPHILS 1 % (0-4); MYELOCYTES 1 % (0-0); NEUTROPHIL # MANUAL DIFF 8.4 TH/MM3 (1.8-7.7); PLATELET ESTIMATE SMEAR LOW (NORMAL); PLATELET MORPHOLOGY NORMAL (NORMAL); POLYS (SEG NEUTROPHILS) 81 % (16-70); SCAN/DIFF FINAL DIFF MANUAL; WBC DIFF SAMPLE 100
--- NOTE | 2017-03-27 10:54 | PD.ONC.PN ---
Subjective Subjective Remarks Afebrile overnight. Pt seen in dialysis, no complaints with Argatroban. Objective Data Date Time Temp Pulse Resp B/P Pulse Ox O2 Delivery O2 Flow Rate FiO2 03/27/17 08:00 97.3 73 20 132/62 96 03/27/17 05:38 98.1 70 18 118/54 94 03/27/17 00:04 97.9 62 18 110/50 94 03/26/17 20:25 98.0 60 18 120/56 92 03/26/17 20:15 70 03/26/17 17:24 98 Nasal Cannula 2.00 03/26/17 16:00 97.2 58 20 123/58 95 03/26/17 12:00 97.7 72 20 119/57 97 03/26/17 11:37 98 Nasal Cannula 2.00 03/27/17 03/27/17 03/27/17 07:00 15:00 23:00 Intake Total 119 ml Output Total 100 ml Balance 19 ml Result Diagram: 03/27/17 0548 03/27/17 0548 Laboratory Results Laboratory Tests Test 03/26/17 03/27/17 03/27/17 23:27 05:48 07:19 Prothrombin Time 28.2 SEC 68.9 SEC Prothromb Time International 2.5 RATIO 5.8 RATIO Ratio Activated Partial 55.1 SEC 85.4 SEC Thromboplast Time Fibrinogen 306 mg/dL 289 mg/dL White Blood Count 9.4 TH/MM3 Red Blood Count 3.41 MIL/MM3 Hemoglobin 10.4 GM/DL Hematocrit 30.0 % Mean Corpuscular Volume 88.0 FL Mean Corpuscular Hemoglobin 30.6 PG Mean Corpuscular Hemoglobin 34.8 % Concent Red Cell Distribution Width 17.3 % Platelet Count 24 TH/MM3 Mean Platelet Volume 8.0 FL Neutrophils (%) (Auto) 83.5 % Lymphocytes (%) (Auto) 8.8 % Monocytes (%) (Auto) 6.1 % Eosinophils (%) (Auto) 0.8 % Basophils (%) (Auto) 0.8 % Neutrophils # (Auto) 7.9 TH/MM3 Lymphocytes # (Auto) 0.8 TH/MM3 Monocytes # (Auto) 0.6 TH/MM3 Eosinophils # (Auto) 0.1 TH/MM3 Basophils # (Auto) 0.1 TH/MM3 CBC Comment AUTO DIFF Differential Total Cells 100 Counted Neutrophils % (Manual) 81 % Band Neutrophils % 7 % Lymphocytes % 5 % Monocytes % 5 % Eosinophils % 1 % Neutrophils # (Manual) 8.4 TH/MM3 Myelocytes 1 % Differential Comment FINAL DIFF MANUAL Platelet Estimate LOW Platelet Morphology Comment NORMAL Sodium Level 134 MEQ/L Potassium Level 3.3 MEQ/L Chloride Level 93 MEQ/L Carbon Dioxide Level 34.2 MEQ/L Anion Gap 7 MEQ/L Blood Urea Nitrogen 16 MG/DL Creatinine 2.75 MG/DL Estimat Glomerular Filtration 17 ML/MIN Rate Random Glucose 107 MG/DL Calcium Level 7.8 MG/DL Total Bilirubin 1.1 MG/DL Direct Bilirubin 0.8 MG/DL Indirect Bilirubin 0.3 MG/DL Aspartate Amino Transf 25 U/L (AST/SGOT) Alanine Aminotransferase 12 U/L (ALT/SGPT) Alkaline Phosphatase 138 U/L Lactate Dehydrogenase 257 U/L Total Protein 6.1 GM/DL Albumin 2.4 GM/DL Administered Medications Medications (Trade) Dose Ordered Sig/Tunde Route PRN Reason Start Time Stop Time Status Last Admin Dose Admin Atorvastatin Calcium (Lipitor) 10 mg HS PO 03/12/17 21:00 03/26/17 20:49 Levothyroxine Sodium (Synthroid) 75 mcg DAILY@06 PO 03/14/17 06:00 03/27/17 05:29 Sodium Chloride (NS Flush) DAILY IVF 03/13/17 09:00 03/26/17 08:50 Sodium Chloride (NS Flush) UNSCH PRN IVF SEE PROTOCOL 03/13/17 08:00 03/14/17 09:13 Sodium Chloride (NS Flush) 2 ml UNSCH PRN IV FLUSH FLUSH AFTER USING IV ACCESS 03/13/17 08:30 03/14/17 09:13 Sodium Chloride (NS Flush) 2 ml BID IV FLUSH 03/13/17 09:00 03/26/17 20:48 Acetaminophen (Tylenol) 650 mg Q6H PRN PO PAIN 1-2 AND/OR FEVER >101F 03/13/17 08:30 03/27/17 05:29 Acetaminophen/ Hydrocodone Bitart ([place] 5-325 Mg) 1 tab Q4H PRN PO PAIN SCALE 3 TO 5 03/13/17 08:30 03/26/17 20:47 Ondansetron HCl (Zofran Inj) 4 mg Q6H PRN IV NAUSEA OR VOMITING 03/13/17 08:30 03/26/17 08:50 Docusate Sodium (Colace) 100 mg BID PO 03/13/17 09:00 03/15/17 09:42 Miscellaneous Information 1 Q361D XX 03/13/17 08:30 03/14/17 09:14 Chlorhexidine Gluconate (Chlorhexidine 2% Cloth) Taper DAILY@04 TOP 03/14/17 04:00 03/10/18 03:59 03/19/17 00:04 Multivitamins 1 tab 1 tab DAILY PO 03/13/17 11:30 03/26/17 08:49 Ceftriaxone Sodium/Sodium Chloride (Rocephin Inj/NS Inj) 100 ml @ 200 mls/hr Q24H IV 03/14/17 13:00 03/26/17 12:55 Patient Own Medication PT OWN MED: Ursod... BID PO 03/15/17 13:00 03/26/17 20:48 Diltiazem HCl (Cardizem) 60 mg TID PO 03/19/17 18:00 03/26/17 17:31 Calcium Carbonate (Oscal) 1,000 mg TID PO 03/20/17 09:00 03/26/17 17:31 Bumetanide 1 mg 1 mg BID@18 IV PUSH 03/20/17 18:00 03/26/17 17:31 Sodium Chloride (NS 1000 ml Inj) 1,000 ml @ 200 mls/hr Q5H PRN IV WITH DIALYSIS 03/21/17 11:22 03/22/17 15:21 Heparin Sodium (Porcine) (Heparin Inj) UNSCH PRN .XX WITH DIALYSIS 03/21/17 11:30 03/25/17 12:26 Gentamicin Sulfate (Gentamicin (Dialysis) Inj) 20 mg UNSCH PRN IV WITH DIALYSIS 03/21/17 11:30 03/25/17 12:27 Epoetin Derrell (Epogen Inj) 4,000 units UNSCH PRN IV WITH DIALYSIS 03/21/17 11:30 03/25/17 12:25 Insulin Detemir (Levemir Inj) 10 units HS SQ 03/24/17 21:00 03/26/17 20:46 Pantoprazole Sodium (Protonix) 40 mg DAILY PO 03/24/17 11:00 03/26/17 08:49 Calcium Carbonate 500 mg 500 mg Q8HR PRN CHEW HEARTBURN 03/24/17 11:00 03/24/17 11:01 Argatroban/Sodium Chloride (Argatroban-0.9% NS Inj) 250 ml @ 0 mls/hr TITRATE IV 03/26/17 22:15 03/26/17 22:23 Objective Remarks GENERAL: Well-nourished, well-developed patient. SKIN: Warm and dry. HEAD: Normocephalic. EYES: No scleral icterus. No injection or drainage. NECK: Supple, trachea midline. No JVD or lymphadenopathy. LYMPHATIC: No adenopathy. CARDIOVASCULAR: Regular rate and rhythm without murmurs. RESPIRATORY: Breath sounds equal bilaterally. No accessory muscle use. GASTROINTESTINAL: Abdomen soft, non-tender, nondistended. EXTREMITIES: No cyanosis, or edema. MUSCULOSKELETAL: Adequate muscle tone. NEUROLOGICAL: No obvious focal deficit. Awake, alert, and oriented x3. PSYCHIATRIC: Appropriate mood and affect; insight and judgment normal. Assessment/Plan Problem List: (1) Thrombocytopenia Status: Chronic Plan: -- Has had chronic thrombocytopenia for some time -- HIT pending -- Possibility of acquired von Willebrand deficiency from the prosthetic aortic valve -- Monitor Coags while on Argatroban Hx/Workup: Mrs. Jerome is a 76-year-old woman who presented with generalized weakness on 03/11/2017. She has a history of thrombocytopenia reported by the patient and her during her cataract surgery. Her platelet count on admission was 148,000. It continued to trend down. She is noted to have started heparin on 03/14 as well as March 17. She had gradual decrease of platelet count temporarily related to starting heparin protocol. Assessment 76 y/o female who presented to the ER with generalized weakness. Hematology consulted for progressive thrombocytopenia. Plan 1. Continue Argatroban 2. US negative for DVT 3. HIT/CHAPO pending. 4. Transfuse for platelets <20K. Attending Statement The exam, history, and the medical decision-making described in the above note were completed with the assistance of the mid-level provider. I reviewed and agree with the findings presented. I attest that I had a [id number] encounter with the patient on the same day, and personally performed and documented my assessment and findings in the medical record. Pt seen and examined at dialysis after completion of dialysis. Per protocol heparin was inserted in her dialysis catheter. Instructed that all heparin should be avoided in patients with HIT. Discussed with pharmacy, to draw dilution of Argatroban for the dialysis catheter. Dialysis nurses instructed us Argatroban dilution for catheter but not to flush through the drug. Argatroban will be aspirate out before starting dialysis as their protocol with heparin. HIT antibody was positive, continue Argatroban and monitor platelet count to recover. Caitlin Das March 27, 2017 10:54 Mojgan Mcginnis MD March 27, 2017 23:23
[2017-03-27] MEDS ORDERED: POTASSIUM CHLORIDE 10 MEQ CONTROLLED RELEASE TAB PO ONE (11:15)
--- NOTE | 2017-03-27 11:17 | HHI.PR ---
Subjective Remarks Follow up infective endocarditis/Renal failure 03/25/17-patient seen and examined; alert and oriented x 3; afebrile. NO acute event overnight 03/26/17-patient seen and examined, denies any chest pain or shortness of breath. Currently afebrile. Family by the bedside. 03/27/17-patient seen and examined; Doppler negative for DVT and patient denies any chest pain or shortness of breath. Thrombocytopenia worsening however patient denies any easy bruising. Cr improving. Objective Vitals Vital Signs Date Time Temp Pulse Resp B/P Pulse Ox O2 Delivery O2 Flow Rate FiO2 03/27/17 08:35 97 21 03/27/17 08:00 97.3 73 20 132/62 96 03/27/17 05:38 98.1 70 18 118/54 94 03/27/17 00:04 97.9 62 18 110/50 94 03/26/17 20:25 98.0 60 18 120/56 92 03/26/17 20:15 70 03/26/17 17:24 98 Nasal Cannula 2.00 03/26/17 16:00 97.2 58 20 123/58 95 03/26/17 12:00 97.7 72 20 119/57 97 03/26/17 11:37 98 Nasal Cannula 2.00 I/O 03/26/17 03/26/17 03/26/17 03/27/17 03/27/17 03/27/17 07:00 15:00 23:00 07:00 15:00 23:00 Intake Total 742 ml 52 ml 119 ml Output Total 200 ml 100 ml Balance 542 ml 52 ml 19 ml Intake Oral 600 ml IV Total 142 ml 52 ml 119 ml Output Urine Total 200 ml 100 ml # Voids 2 0 # Bowel Movements 3 0 Result Diagram: 03/27/17 0548 03/27/17 0548 Imaging Last Impressions Upper Extremity Ultrasound 03/26/17 0000 Signed Impressions: Service Date/Time: Sunday, March 26, 2017 21:49 - CONCLUSION: Normal examination. Dentno Parker Jr., MD Lower Extremity Ultrasound 03/26/17 0000 Signed Impressions: Service Date/Time: Sunday, March 26, 2017 21:28 - CONCLUSION: 1. No DVT. 2. Subcutaneous edema involving both calves. Denton Parker Jr., MD Chest X-Ray 5/5/17 0000 Signed Impressions: Service Date/Time: Tuesday, March 21, 2017 09:16 - CONCLUSION: Bibasilar opacities characteristic of pleural effusions with associated volume loss and/or consolidation. The perihilar interstitial opacities are suggestive of pulmonary edema. Reynaldo Higgins MD Catheter Placement X-Ray 03/21/17 Signed Impressions: Service Date/Time: Tuesday, March 21, 2017 14:31 - CONCLUSION: Uncomplicated line placement as above. Denton Parker Jr., MD Renal Ultrasound 03/18/17 Signed Impressions: Service Date/Time: Saturday, March 18, 2017 17:35 - CONCLUSION: 1. Echogenic kidneys bilaterally compatible with medical renal disease. 2. Small volume ascites Dimitrios Lopez MD Neck CTA 03/12/17 0000 Signed Impressions: Service Date/Time: Sunday, March 12, 2017 20:22 - CONCLUSION: Slight atherosclerosis of both carotid bifurcations without narrowing. Dominant left vertebral artery. Reynaldo Lazar MD Head CTA 03/12/17 0000 Signed Impressions: Service Date/Time: Sunday, March 12, 2017 20:22 - CONCLUSION: Normal intracranial arteries. Reynaldo Lazar MD Head CT 03/12/17 0000 Signed Impressions: Service Date/Time: Sunday, March 12, 2017 19:02 - CONCLUSION: Negative noncontrast head CT. Reynaldo Lazar MD Objective Remarks GENERAL: NAD SKIN: Warm and dry. HEAD: Normocephalic. EYES: No scleral icterus. No injection or drainage. NECK: Supple, trachea midline. No JVD or lymphadenopathy. CARDIOVASCULAR: Regular rate and rhythm with murmurs II/ BRENDA RESPIRATORY: Breath sounds equal bilaterally. No accessory muscle use. GASTROINTESTINAL: Abdomen soft, non-tender, nondistended. MUSCULOSKELETAL: No cyanosis, or edema. BACK: Nontender without obvious deformity. No CVA tenderness. Date of Insertion: Mar 13, 2017 Line: Central Venous Catheter Side: Right Location: Internal, Jugular A/P Problem List: (1) Prosthetic valve endocarditis ICD Code: T82.6XXA Status: Acute (2) Atrial flutter with rapid ventricular response ICD Code: I48.92 Status: Acute (3) Thrombocytopenia ICD Code: D69.6 Status: Chronic (4) Hypokalemia ICD Code: E87.6 Status: Acute (5) HIT (heparin-induced thrombocytopenia) ICD Code: D75.82 Status: Acute Assessment and Plan 76 yrs old female with Infective Endocarditis at Prosthetic Valve Strep Bacteremia (Strep V) Continue Rocephin and appreciate input from ID Follow culture Cardiology ff Encephalopathy -resolved NATALIA On Dialysis per Nephrology Plan for HD today 03/27 and continue to monitor BUN/creatinine A-fib with RVR Controlled on a Diltiazem PO Continue Heparin Drip Cardiology ff Anemia H&H stable and continue to monitor CBC Hyperlipidemia Statin Biliary Cirrhosis, state IV Spironolactone continued Lasix and Mckenna continued DM2 SSI Long acting insulins Diabetic Diet Follow blood sugars Hypothyroidism Continue supplementation GERD Hiatal Hernia Continue PPI Heparin induced Thrombocytopenia Currently on Argatroban Appreciate input from hematology Hypokalemia Give potassium 60 mEq 1 and monitor DVT Prophylaxis SCDs and Heparin drip Aubrey Snyder MD March 27, 2017 11:17
--- NOTE | 2017-03-27 11:21 | HHI.NPPN ---
Subjective History of Present Illness 76 Year old W Female with ARF, Biliary Cirrhosis, streptococcus Viridans sepsis Additional Remarks Patient is alert, no SOB, started eating better. Review of Systems General Constitutional: Fatigue Objective Data Data 03/26/17 03/27/17 18:59 06:59 Intake Total 742 ml 171 ml Output Total 200 ml 100 ml Balance 542 ml 71 ml Intake Oral 600 ml IV Total 142 ml 171 ml Output Urine Total 200 ml 100 ml # Voids 2 0 # Bowel Movements 3 0 Vital Signs Date Time Temp Pulse Resp B/P Pulse Ox O2 Delivery O2 Flow Rate FiO2 03/27/17 08:35 97 21 03/27/17 08:00 97.3 73 20 132/62 96 03/27/17 05:38 98.1 70 18 118/54 94 03/27/17 00:04 97.9 62 18 110/50 94 03/26/17 20:25 98.0 60 18 120/56 92 03/26/17 20:15 70 03/26/17 17:24 98 Nasal Cannula 2.00 03/26/17 16:00 97.2 58 20 123/58 95 03/26/17 12:00 97.7 72 20 119/57 97 03/26/17 11:37 98 Nasal Cannula 2.00 -: 03/27/17 0548 03/27/17 0548 Physical Exam General Appearance: No Acute Distress, Comfortable, Anxious Neck Neck Exam: Neck Supple Pulmonary Resp Exam: Breath Sounds Equal, No Distress, Rhonchi, Decreased Bases Cardiology CV Exam: Irregular Gastrointestinal/Abdomen GI Exam: Soft, Non-Tender, Bowel Sounds Present Extremeties Extremities Exam: Trace Edema Neurologic Neuro Exam: Alert, Awake, Oriented Psychiatric Psych Exam: Appropriate Responses Assessment/Plan Problem List: (1) Acute renal failure Plan: This is ARF Creatinine was worse and started on dialysis. Non oliguric, on Bumex. HD proceedings noted 2 L 4 K,K low Cr 2.7 (2) Streptococcal bacteremia Plan: Infectious disease is following she is on broad-spectrum antibiotic ceftriaxone (3) Atrial flutter with rapid ventricular response Plan: Off diltiazem (4) Biliary liver cirrhosis Plan: Follows with GI (5) Thrombocytopenia Plan: HIT positive Hematology Argatroban Problem Qualifiers (1) Acute renal failure: Qualified Code: N17.9 - Acute renal failure, unspecified acute renal failure type Ginette,Sajid MD March 27, 2017 11:21
[2017-03-27 11:47] LABS: APTT (PATIENT) 82.9 SEC (24.3-30.1)
[2017-03-27] MEDS: SODIUM CHLOR 0.9% 1000 ML INJ 1,000 ML IV PRN (12:24)
[2017-03-27] MEDS: EPOETIN ALFA 10,000 UNITS/ML VIAL IV PRN (12:25)
[2017-03-27] MEDS: HEPARIN SODIUM - IV 10,000 UNITS/10 ML VIAL PRN (12:25)
[2017-03-27] MEDS: GENTAMICIN SULFATE (DIALYSIS USE ONLY) 20 MG/2 ML VIAL IV PRN (12:25)
[2017-03-27] MEDS: PANTOPRAZOLE SOD 40 MG DELAYED RELEASE TAB PO SCH (14:13)
[2017-03-27] MEDS: MULTIVITAMIN TAB PO SCH (14:13)
[2017-03-27] MEDS: BUMETANIDE INJ 1 MG/4 ML VIAL IV PUSH SCH ×2 (14:13→18:42)
[2017-03-27] MEDS: SODIUM CHLORIDE 0.9% FLUSH 10 ML FLUSH IV FLUSH SCH ×2 (14:13→22:02)
[2017-03-27] MEDS: URSODIOL PO SCH ×2 (14:13→22:01)
[2017-03-27] MEDS: cefTRIAXone INJ 2,000 MG in SODIUM CHLORIDE 0.9% INJ 100 ML IV SCH (14:14)
[2017-03-27 15:51] LABS: HEPARIN AB OD 2.036 O.D. (0.000-0.300)
[2017-03-27 15:56] LABS: HEPARIN INDUCED PLATELET AB POSITIVE (NEGATIVE)
[2017-03-27] MEDS: SODIUM CHLORIDE 0.9% OTHER SCH ×2 (18:05)
[2017-03-27] MEDS: ARGATROBAN OTHER SCH ×2 (18:05)
[2017-03-27 18:18] LABS: APTT (PATIENT) 67.1 SEC (24.3-30.1)
[2017-03-27] MEDS: ACETAMINOPHEN/HYDROcodone 325 MG/5 MG TAB PO PRN (22:01)
[2017-03-27] MEDS: ATORVASTATIN 10 MG TAB PO SCH (22:01)
[2017-03-27] MEDS: INSULIN DETEMIR 100 UNITS/ML VIAL SQ SCH (22:06)
[2017-03-27 23:51] LABS: UFH SEROTONIN RELEASE RESULT POSITIVE (NEGATIVE)
[2017-03-28] VITALS (9 sets, daily range): BP systolic 120–143; BP diastolic 58–74; PULSE 54–110; RESP 20; TEMP 97.6–98.1; O2SAT 94–99
[2017-03-28] MEDS: CHLORHEXIDINE GLUCONATE 2 % 1 PACK (2 CLOTHS) TOP SCH (04:00)
[2017-03-28] MEDS: LEVOTHYROXINE SODIUM 75 MCG TAB PO SCH (05:27)
[2017-03-28] MEDS: INSULIN ASPART SUPPLEMENTAL SCALE SQ SCH ×4 (05:27→20:57)
[2017-03-28] MEDS: SENNOSIDES 8.6 MG TAB PO SCH ×2 (08:27→21:00)
[2017-03-28] MEDS: DOCUSATE SODIUM 100 MG CAP PO SCH ×2 (08:27→20:55)
[2017-03-28] MEDS: URSODIOL PO SCH ×2 (08:28→20:54)
[2017-03-28] MEDS: PANTOPRAZOLE SOD 40 MG DELAYED RELEASE TAB PO SCH (08:28)
[2017-03-28] MEDS: DILTIAZEM HCL 60 MG TAB PO SCH ×3 (08:28→16:54)
[2017-03-28] MEDS: MULTIVITAMIN TAB PO SCH (08:28)
[2017-03-28] MEDS: CALCIUM CARBONATE 1.25 GM (CA 500 MG) TAB PO SCH ×3 (08:28→16:54)
[2017-03-28] MEDS: BUMETANIDE INJ 1 MG/4 ML VIAL IV PUSH SCH ×2 (08:29→16:54)
[2017-03-28] MEDS: SODIUM CHLORIDE 0.9% FLUSH 10 ML FLUSH IV FLUSH SCH ×2 (08:29→21:00)
[2017-03-28] MEDS: SODIUM CHLORIDE 0.9% FLUSH 10 ML FLUSH IVF SCH (08:29)
[2017-03-28] MEDS: ACETAMINOPHEN 325 MG TAB PO PRN (09:07)
[2017-03-28 09:32] LABS: AUTOMATED NEUTROPHIL # 9.9 TH/MM3 (1.8-7.7); BASOPHIL # 0.1 TH/MM3 (0-0.2); BASOPHIL % 0.6 % (0.0-2.0); EOSINOPHIL # 0.1 TH/MM3 (0-0.4); EOSINOPHIL % 0.7 % (0.0-4.0); HEMATOCRIT 30.9 % (35.0-46.0); LYMPH % 6.6 % (9.0-44.0); LYMPHOCYTE # 0.8 TH/MM3 (1.0-4.8); MEAN CELL VOLUME 88.3 FL (80.0-100.0); MEAN CORPUSCULAR HEMOGLOBIN 29.1 PG (27.0-34.0); MONO % 5.8 % (0.0-8.0); NEUT % 86.3 % (16.0-70.0); PLATELET COUNT 27 TH/MM3 (150-450); RED CELL DISTRIBUTION WIDTH 18.2 % (11.6-17.2); WHITE BLOOD COUNT 11.4 TH/MM3 (4.0-11.0)
[2017-03-28 09:33] LABS: HEMO FLAGS AUTO DIFF
[2017-03-28 09:49] LABS: APTT (PATIENT) 70.3 SEC (24.3-30.1)
--- NOTE | 2017-03-28 10:26 | HHI.PR ---
Subjective Remarks Follow up infective endocarditis/Renal failure 03/25/17-patient seen and examined; alert and oriented x 3; afebrile. NO acute event overnight 03/26/17-patient seen and examined, denies any chest pain or shortness of breath. Currently afebrile. Family by the bedside. 03/27/17-patient seen and examined; Doppler negative for DVT and patient denies any chest pain or shortness of breath. Thrombocytopenia worsening however patient denies any easy bruising. Cr improving. 03/28/17-patient seen and examined, she had hemodialysis yesterday. Platelet up to 27 today. BMP pending Objective Vitals Vital Signs Date Time Temp Pulse Resp B/P Pulse Ox O2 Delivery O2 Flow Rate FiO2 03/28/17 04:00 97.7 82 20 127/60 97 03/28/17 00:00 97.8 78 20 128/63 99 03/27/17 20:00 97.8 69 20 114/56 95 03/27/17 19:15 73 03/27/17 16:00 98.1 84 20 114/69 93 03/27/17 12:00 97.7 88 20 115/56 96 I/O 03/27/17 03/27/17 03/27/17 03/28/17 03/28/17 03/28/17 07:00 15:00 23:00 07:00 15:00 23:00 Intake Total 119 ml 786 ml 36 ml 58 ml Output Total 100 ml 2700 ml Balance 19 ml -1914 ml 36 ml 58 ml Intake Oral 720 ml IV Total 119 ml 66 ml 36 ml 58 ml Output Urine Total 100 ml 700 ml Hemodialysis 2000 ml # Bowel Movements 1 Result Diagram: 03/28/17 0906 03/27/17 0548 Objective Remarks GENERAL: NAD SKIN: Warm and dry. HEAD: Normocephalic. EYES: No scleral icterus. No injection or drainage. NECK: Supple, trachea midline. No JVD or lymphadenopathy. CARDIOVASCULAR: Regular rate and rhythm with murmurs II/ BRENDA RESPIRATORY: Breath sounds equal bilaterally. No accessory muscle use. GASTROINTESTINAL: Abdomen soft, non-tender, nondistended. MUSCULOSKELETAL: No cyanosis, or edema. Multiple petechiae to bilateral lower extremities BACK: Nontender without obvious deformity. No CVA tenderness. Date of Insertion: Mar 13, 2017 Line: Central Venous Catheter Side: Right Location: Internal, Jugular A/P Problem List: (1) Prosthetic valve endocarditis ICD Code: T82.6XXA Status: Acute (2) Atrial flutter with rapid ventricular response ICD Code: I48.92 Status: Acute (3) Thrombocytopenia ICD Code: D69.6 Status: Chronic (4) Hypokalemia ICD Code: E87.6 Status: Acute (5) HIT (heparin-induced thrombocytopenia) ICD Code: D75.82 Status: Acute Assessment and Plan 76 yrs old female with Infective Endocarditis at Prosthetic Valve Strep Bacteremia (Strep V) Continue Rocephin and appreciate input from ID Follow culture Cardiology ff Encephalopathy -resolved NATALIA On Dialysis per Nephrology Plan for HD today 03/27 and continue to monitor BUN/creatinine A-fib with RVR Controlled on a Diltiazem PO Off Heparin Drip secondary to HIT Cardiology ff Anemia H&H stable and continue to monitor CBC Hyperlipidemia Statin Biliary Cirrhosis, state IV Spironolactone continued Lasix and Mckenna continued DM2 SSI Long acting insulins Diabetic Diet Follow blood sugars Hypothyroidism Continue supplementation GERD Hiatal Hernia Continue PPI Heparin induced Thrombocytopenia Currently on Argatroban Appreciate input from hematology Hypokalemia BMP pending DVT Prophylaxis Aubrey Cagle MD March 28, 2017 10:26
[2017-03-28 10:28] LABS: BICARBONATE 31.9 MEQ/L (21.0-32.0); POTASSIUM 4.1 MEQ/L (3.5-5.1)
[2017-03-28 10:32] LABS: BANDS 1 % (0-6); BASOPHILS 1 % (0-2); EOSINOPHILS 2 % (0-4); NEUTROPHIL # MANUAL DIFF 9.2 TH/MM3 (1.8-7.7); POLYS (SEG NEUTROPHILS) 80 % (16-70); WBC DIFF SAMPLE 100
[2017-03-28 10:33] LABS: POLYCHROMASIA 2.2 % (0.0-1.9)
[2017-03-28 10:35] LABS: PLATELET ESTIMATE SMEAR LOW (NORMAL); PLATELET MORPHOLOGY NORMAL (NORMAL); SCAN/DIFF FINAL DIFF MANUAL
--- NOTE | 2017-03-28 10:56 | HHI.IDPN ---
Note Infectious Disease Note Patient feels okay. No nausea. Denies SOB. No chills, No CP. Afebrile. at bedside. Hematology consult noted. 03/19 - Blood culture no growth. 03/14 - Blood culture has no growth. 03/13 - Blood cultures has strep viridans. 03/12 - Blood cultures has strep viridans. 03/11 - Blood cultures has strep viridans. Presented to emergency department on 03/11 with generalized weakness. The patient previously presented to [facility] one week ago after three days of generalized weakness and diarrhea. She was evaluated and the white blood cell count was normal and she was afebrile. PAST MEDICAL HISTORY 1. Biliary cirrhosis 2. Diabetes mellitus 3. Appendectomy 4. Hysterectomy. 5. Aortic valve replacement in 2012 with Bovine valve. 6. Gastroesophageal reflux disease 7. Bilateral cataract surgery, one was done February 2017 and the first was January 2017. ALLERGIES AMPICILLIN LEAD TO SHORTNESS OF BREATH. PATIENT ABLE TO TOLERATE AMOXICILLIN. LEVAQUIN SULFA MACROBID IODINE CONTRAST MEDIA. HEART DISEASE. ANTIBIOTICS: Ceftriaxone. SOCIAL HISTORY No tobacco use. Social alcohol use. No illicit drugs. OBJECTIVE: Vital Signs Date Time Temp Pulse Resp B/P Pulse Ox O2 Delivery O2 Flow Rate FiO2 03/28/17 08:11 89 03/28/17 08:00 97.9 106 20 143/63 94 03/28/17 04:00 97.7 82 20 127/60 97 03/28/17 00:00 97.8 78 20 128/63 99 03/27/17 20:00 97.8 69 20 114/56 95 03/27/17 19:15 73 03/27/17 16:00 98.1 84 20 114/69 93 03/27/17 12:00 97.7 88 20 115/56 96 03/27/17 03/27/17 03/28/17 15:00 23:00 07:00 Intake Total 786 ml 36 ml 58 ml Output Total 2700 ml Balance -1914 ml 36 ml 58 ml Intake Oral 720 ml IV Total 66 ml 36 ml 58 ml Output Urine Total 700 ml Hemodialysis 2000 ml # Bowel Movements 1 Laboratory Tests Test 03/27/17 03/28/17 05:48 09:06 White Blood Count 9.4 TH/MM3 11.4 TH/MM3 Red Blood Count 3.41 MIL/MM3 3.50 MIL/MM3 Hemoglobin 10.4 GM/DL 10.2 GM/DL Hematocrit 30.0 % 30.9 % Mean Corpuscular Volume 88.0 FL 88.3 FL Mean Corpuscular Hemoglobin 30.6 PG 29.1 PG Mean Corpuscular Hemoglobin 34.8 % 33.0 % Concent Red Cell Distribution Width 17.3 % 18.2 % Platelet Count 24 TH/MM3 27 TH/MM3 Mean Platelet Volume 8.0 FL 8.1 FL Neutrophils (%) (Auto) 83.5 % 86.3 % Lymphocytes (%) (Auto) 8.8 % 6.6 % Monocytes (%) (Auto) 6.1 % 5.8 % Eosinophils (%) (Auto) 0.8 % 0.7 % Basophils (%) (Auto) 0.8 % 0.6 % Neutrophils # (Auto) 7.9 TH/MM3 9.9 TH/MM3 Lymphocytes # (Auto) 0.8 TH/MM3 0.8 TH/MM3 Monocytes # (Auto) 0.6 TH/MM3 0.7 TH/MM3 Eosinophils # (Auto) 0.1 TH/MM3 0.1 TH/MM3 Basophils # (Auto) 0.1 TH/MM3 0.1 TH/MM3 CBC Comment AUTO DIFF AUTO DIFF Differential Total Cells 100 100 Counted Neutrophils % (Manual) 81 % 80 % Band Neutrophils % 7 % 1 % Lymphocytes % 5 % 6 % Monocytes % 5 % 10 % Eosinophils % 1 % 2 % Neutrophils # (Manual) 8.4 TH/MM3 9.2 TH/MM3 Myelocytes 1 % Differential Comment FINAL DIFF FINAL DIFF MANUAL MANUAL Platelet Estimate LOW LOW Platelet Morphology Comment NORMAL NORMAL Basophils % 1 % Polychromasia 2.2 % Laboratory Tests Test 03/27/17 03/28/17 05:48 09:06 Sodium Level 134 MEQ/L 132 MEQ/L Potassium Level 3.3 MEQ/L 4.1 MEQ/L Chloride Level 93 MEQ/L 94 MEQ/L Carbon Dioxide Level 34.2 MEQ/L 31.9 MEQ/L Anion Gap 7 MEQ/L 6 MEQ/L Blood Urea Nitrogen 16 MG/DL 14 MG/DL Creatinine 2.75 MG/DL 2.07 MG/DL Estimat Glomerular Filtration 17 ML/MIN 23 ML/MIN Rate Random Glucose 107 MG/DL 119 MG/DL Calcium Level 7.8 MG/DL 7.8 MG/DL Total Bilirubin 1.1 MG/DL Direct Bilirubin 0.8 MG/DL Indirect Bilirubin 0.3 MG/DL Aspartate Amino Transf 25 U/L (AST/SGOT) Alanine Aminotransferase 12 U/L (ALT/SGPT) Alkaline Phosphatase 138 U/L Lactate Dehydrogenase 257 U/L Total Protein 6.1 GM/DL Albumin 2.4 GM/DL IMAGING: Upper Extremity Ultrasound 03/26/17 Signed Impressions: Service Date/Time: Sunday, March 26, 2017 21:49 - CONCLUSION: Normal examination. Denton Parker Jr., MD Lower Extremity Ultrasound 03/26/17 Signed Impressions: Service Date/Time: Sunday, March 26, 2017 21:28 - CONCLUSION: 1. No DVT. 2. Subcutaneous edema involving both calves. Denton Parker Jr., MD Chest X-Ray 03/21/17 Signed Impressions: Service Date/Time: Tuesday, March 21, 2017 09:16 - CONCLUSION: Bibasilar opacities characteristic of pleural effusions with associated volume loss and/or consolidation. The perihilar interstitial opacities are suggestive of pulmonary edema. Reynaldo Higgins MD Renal Ultrasound 03/18/17 Signed Impressions: Service Date/Time: Saturday, March 18, 2017 17:35 - CONCLUSION: 1. Echogenic kidneys bilaterally compatible with medical renal disease. 2. Small volume ascites Dimitrios Lopez MD Chest X-Ray 03/15/17 0600 Signed Impressions: Service Date/Time: Wednesday, March 15, 2017 04:56 - CONCLUSION: Worsening consolidation and effusion at the left lung base. Reynaldo Lazar MD Neck CTA 03/12/17 Signed Impressions: Service Date/Time: Sunday, March 12, 2017 20:22 - CONCLUSION: Slight atherosclerosis of both carotid bifurcations without narrowing. Dominant left vertebral artery. Reynaldo Lazar MD Head CTA 03/12/17 Signed Impressions: Service Date/Time: Sunday, March 12, 2017 20:22 - CONCLUSION: Normal intracranial arteries. Reynaldo Lazar MD Head CT 03/12/17 Signed Impressions: Service Date/Time: Sunday, March 12, 2017 19:02 - CONCLUSION: Negative noncontrast head CT. Reynaldo Lazar MD PHYSICAL EXAMINATION GENERAL: Awake and alert. HEENT: No icterus. No conjunctival erythema. Oropharynx no thrush. NECK: Supple without adenopathy or swelling. No JVD. LUNGS: Clear breath sounds. HEART: Irregular S1S2. 2/6 blowing systolic ejection murmur at the left sternal border and also at the upper right sternal border. ABDOMEN: Bowel sounds present, soft, non tender. EXTREMITIES: No clubbing or cyanosis. 3+ pitting edema at the legs. 1+ edema at the humerus. Ecchymosis of the hands. No peripheral embolic lesions. NEUROLOGIC: Nonfocal. SKIN: No diffuse rash. PSYCHIATRIC: Calm, pleasant and cooperative. IMPRESSION 1. Bacteremia due to Viridans Strep. Blood cultures now negative. 2. Bioprosthetic aortic valve endocarditis. 3. Sepsis. strep viridans group. 4. Altered mental status secondary to Sepsis. Resolved. 5. Leukocytosis. Improved. 6. Acute kidney disease. Worsened kidney function. Probably related to aminoglycoside/dehydration. now getting dialysed. Given the presence of vegetation she is at risk of complications such as valve malfunction and emboli. 7. Multiple antibiotic allergies. 8. Thrombocytopenia. Plans per hematology. RECOMMENDATIONS 1. Continue Ceftriaxone IV as planned until April 25, 2017. 2. Discharge disposition per renal decision about renal failure and decision about fpc catheter placement and Hematology consult recommendations. Arrangement to be made for follow up with ID outpatient Dr. Martinez. Edwin Harrison MD March 28, 2017 10:56
--- NOTE | 2017-03-28 11:00 | PD.ONC.PN ---
Subjective Subjective Remarks Afebrile overnight. Patient resting comfortably. "will I be able to go home soon?" denies bleeding or pain. Objective Data Date Time Temp Pulse Resp B/P Pulse Ox O2 Delivery O2 Flow Rate FiO2 03/28/17 08:11 89 03/28/17 08:00 97.9 106 20 143/63 94 03/28/17 04:00 97.7 82 20 127/60 97 03/28/17 00:00 97.8 78 20 128/63 99 03/27/17 20:00 97.8 69 20 114/56 95 03/27/17 19:15 73 03/27/17 16:00 98.1 84 20 114/69 93 03/27/17 12:00 97.7 88 20 115/56 96 03/28/17 03/28/17 03/28/17 06:59 14:59 22:59 Intake Total 58 ml Balance 58 ml Result Diagram: 03/28/1790503/28/17905 Laboratory Results Laboratory Tests Test 03/27/17 03/27/17 03/28/17 11:07 17:53 09:06 Activated Partial 82.9 SEC 67.1 SEC 70.3 SEC Thromboplast Time White Blood Count 11.4 TH/MM3 Red Blood Count 3.50 MIL/MM3 Hemoglobin 10.2 GM/DL Hematocrit 30.9 % Mean Corpuscular Volume 88.3 FL Mean Corpuscular Hemoglobin 29.1 PG Mean Corpuscular Hemoglobin 33.0 % Concent Red Cell Distribution Width 18.2 % Platelet Count 27 TH/MM3 Mean Platelet Volume 8.1 FL Neutrophils (%) (Auto) 86.3 % Lymphocytes (%) (Auto) 6.6 % Monocytes (%) (Auto) 5.8 % Eosinophils (%) (Auto) 0.7 % Basophils (%) (Auto) 0.6 % Neutrophils # (Auto) 9.9 TH/MM3 Lymphocytes # (Auto) 0.8 TH/MM3 Monocytes # (Auto) 0.7 TH/MM3 Eosinophils # (Auto) 0.1 TH/MM3 Basophils # (Auto) 0.1 TH/MM3 CBC Comment AUTO DIFF Differential Total Cells 100 Counted Neutrophils % (Manual) 80 % Band Neutrophils % 1 % Lymphocytes % 6 % Monocytes % 10 % Eosinophils % 2 % Basophils % 1 % Neutrophils # (Manual) 9.2 TH/MM3 Differential Comment FINAL DIFF MANUAL Platelet Estimate LOW Platelet Morphology Comment NORMAL Polychromasia 2.2 % Sodium Level 132 MEQ/L Potassium Level 4.1 MEQ/L Chloride Level 94 MEQ/L Carbon Dioxide Level 31.9 MEQ/L Anion Gap 6 MEQ/L Blood Urea Nitrogen 14 MG/DL Creatinine 2.07 MG/DL Estimat Glomerular Filtration 23 ML/MIN Rate Random Glucose 119 MG/DL Calcium Level 7.8 MG/DL Administered Medications Medications (Trade) Dose Ordered Sig/Tunde Route PRN Reason Start Time Stop Time Status Last Admin Dose Admin Atorvastatin Calcium (Lipitor) 10 mg HS PO 03/12/17 21:00 03/27/17 22:01 Levothyroxine Sodium (Synthroid) 75 mcg DAILY@06 PO 03/14/17 06:00 03/28/17 05:27 Sodium Chloride (NS Flush) DAILY IVF 03/13/17 09:00 03/26/17 08:50 Sodium Chloride (NS Flush) UNSCH PRN IVF SEE PROTOCOL 03/13/17 08:00 03/14/17 09:13 Sodium Chloride (NS Flush) 2 ml UNSCH PRN IV FLUSH FLUSH AFTER USING IV ACCESS 03/13/17 08:30 03/14/17 09:13 Sodium Chloride (NS Flush) 2 ml BID IV FLUSH 03/13/17 09:00 03/28/17 08:29 Acetaminophen (Tylenol) 650 mg Q6H PRN PO PAIN 1-2 AND/OR FEVER >101F 03/13/17 08:30 03/28/17 09:07 Acetaminophen/ Hydrocodone Bitart ([place] 5-325 Mg) 1 tab Q4H PRN PO PAIN SCALE 3 TO 5 03/13/17 08:30 03/27/17 22:01 Ondansetron HCl (Zofran Inj) 4 mg Q6H PRN IV NAUSEA OR VOMITING 03/13/17 08:30 03/26/17 08:50 Docusate Sodium (Colace) 100 mg BID PO 03/13/17 09:00 03/15/17 09:42 Miscellaneous Information 1 Q361D XX 03/13/17 08:30 03/14/17 09:14 Chlorhexidine Gluconate (Chlorhexidine 2% Cloth) Taper DAILY@04 TOP 03/14/17 04:00 03/10/18 03:59 5/3/17 00:04 Multivitamins 1 tab 1 tab DAILY PO 03/13/17 11:30 03/28/17 08:28 Ceftriaxone Sodium/Sodium Chloride (Rocephin Inj/NS Inj) 100 ml @ 200 mls/hr Q24H IV 03/14/17 13:00 03/27/17 14:14 Patient Own Medication PT OWN MED: Ursod... BID PO 03/15/17 13:00 03/28/17 08:28 Diltiazem HCl (Cardizem) 60 mg TID PO 03/19/17 18:00 03/28/17 08:28 Calcium Carbonate (Oscal) 1,000 mg TID PO 03/20/17 09:00 03/28/17 08:28 Bumetanide 1 mg 1 mg BID@09,18 IV PUSH 03/20/17 18:00 03/28/17 08:29 Sodium Chloride (NS 1000 ml Inj) 1,000 ml @ 200 mls/hr Q5H PRN IV WITH DIALYSIS 03/21/17 11:22 03/27/17 12:24 Heparin Sodium (Porcine) (Heparin Inj) UNSCH PRN .XX WITH DIALYSIS 03/21/17 11:30 03/27/17 12:25 Gentamicin Sulfate (Gentamicin (Dialysis) Inj) 20 mg UNSCH PRN IV WITH DIALYSIS 03/21/17 11:30 03/27/17 12:25 Epoetin Derrell (Epogen Inj) 4,000 units UNSCH PRN IV WITH DIALYSIS 03/21/17 11:30 03/27/17 12:25 Insulin Detemir (Levemir Inj) 10 units HS SQ 03/24/17 21:00 03/27/17 22:06 Pantoprazole Sodium (Protonix) 40 mg DAILY PO 03/24/17 11:00 03/28/17 08:28 Calcium Carbonate (Tums Chew) 500 mg Q8HR PRN CHEW HEARTBURN 03/24/17 11:00 03/24/17 11:01 Objective Remarks GENERAL: Elderly female, sitting up in bed in nad. SKIN: Warm and dry. HEAD: Normocephalic. EYES: No injection or drainage. NECK: Supple, trachea midline CARDIOVASCULAR: Regular rate and rhythm RESPIRATORY: Breath sounds equal bilaterally. No accessory muscle use. GASTROINTESTINAL: Abdomen soft, non-tender, nondistended. EXTREMITIES: No cyanosis NEUROLOGICAL: No obvious focal deficit. Awake, alert, and oriented x3. Assessment/Plan Problem List: (1) Thrombocytopenia Status: Chronic Plan: -- Has had chronic thrombocytopenia for some time -- HIT positive -- Possibility of acquired von Willebrand deficiency from the prosthetic aortic valve -- Monitor Coags while on Argatroban Hx/Workup: Mrs. Jreome is a 76-year-old woman who presented with generalized weakness on 03/11/2017. She has a history of thrombocytopenia reported by the patient and her during her cataract surgery. Her platelet count on admission was 148,000. It continued to trend down. She is noted to have started heparin on 03/14 as well as March 17. She had gradual decrease of platelet count temporarily related to starting heparin protocol. Assessment 76 y/o female who presented to the ER with generalized weakness. Hematology consulted for progressive thrombocytopenia. Plan 1. Continue Argatroban 2. start coumadin bridge once platelet count>100K. 3. Transfuse for platelets <20K. Attending Statement The exam, history, and the medical decision-making described in the above note were completed with the assistance of the mid-level provider. I reviewed and agree with the findings presented. I attest that I had a [id number] encounter with the patient on the same day, and personally performed and documented my assessment and findings in the medical record. Pt seen and examined. Heparin in the dialysis catheter was removed and replaced by Argatroban dilution. Pt denies any bleeding. Platelet count still low, slowly rising. No DVT, cont argatroban to decrease risk of thrombosis. Plan to bridge to therapeutic INR. Romy Oropeza March 28, 2017 11:00 Mojgan Mcginnis MD March 28, 2017 18:54
--- NOTE | 2017-03-28 11:46 | HHI.NPPN ---
Subjective History of Present Illness 76 Year old W Female with ARF, Biliary Cirrhosis, streptococcus Viridans sepsis Additional Remarks Patient is alert, no SOB, started eating better. Review of Systems General Constitutional: Fatigue Objective Data Data 03/27/17 03/28/17 19:00 07:00 Intake Total 786 ml 94 ml Output Total 2700 ml Balance -1914 ml 94 ml Intake Oral 720 ml IV Total 66 ml 94 ml Output Urine Total 700 ml Hemodialysis 2000 ml # Bowel Movements 1 Vital Signs Date Time Temp Pulse Resp B/P Pulse Ox O2 Delivery O2 Flow Rate FiO2 03/28/17 08:45 95 21 03/28/17 08:11 89 03/28/17 08:00 97.9 106 20 143/63 94 03/28/17 04:00 97.7 82 20 127/60 97 03/28/17 00:00 97.8 78 20 128/63 99 03/27/17 20:00 97.8 69 20 114/56 95 03/27/17 19:15 73 03/27/17 16:00 98.1 84 20 114/69 93 03/27/17 12:00 97.7 88 20 115/56 96 -: 03/28/17 0906 03/28/17 0906 Physical Exam General Appearance: No Acute Distress, Comfortable, Anxious Neck Neck Exam: Neck Supple Pulmonary Resp Exam: Breath Sounds Equal, No Distress, Rhonchi, Decreased Bases Cardiology CV Exam: Irregular Gastrointestinal/Abdomen GI Exam: Soft, Non-Tender, Bowel Sounds Present Extremeties Extremities Exam: Moderate Edema Neurologic Neuro Exam: Alert, Awake, Oriented Psychiatric Psych Exam: Appropriate Responses Assessment/Plan Problem List: (1) Acute renal failure Plan: This is ARF Creatinine was worse and started on dialysis. Non oliguric, on Bumex. HD next tomorrow HIT pos (2) Streptococcal bacteremia Plan: Infectious disease is following she is on broad-spectrum antibiotic ceftriaxone (3) Atrial flutter with rapid ventricular response Plan: Off diltiazem (4) Biliary liver cirrhosis Plan: Follows with GI (5) Thrombocytopenia Plan: HIT positive Hematology fu Argatroban Problem Qualifiers (1) Acute renal failure: Qualified Code: N17.9 - Acute renal failure, unspecified acute renal failure type Molly Peng MD March 28, 2017 11:46
[2017-03-28] MEDS: cefTRIAXone INJ 2,000 MG in SODIUM CHLORIDE 0.9% INJ 100 ML IV SCH (11:59)
[2017-03-28] MEDS: ACETAMINOPHEN/HYDROcodone 325 MG/5 MG TAB PO PRN (20:54)
[2017-03-28] MEDS: ATORVASTATIN 10 MG TAB PO SCH (20:55)
[2017-03-28] MEDS: INSULIN DETEMIR 100 UNITS/ML VIAL SQ SCH (20:57)
[2017-03-28] MEDS: ARGATROBAN IV SCH (22:17)
[2017-03-28] MEDS: SODIUM CHLOR 0.9% IV SCH (22:17)
[2017-03-29] VITALS: BP 133/60; PULSE 64; RESP 20; TEMP 98; O2SAT 97
[2017-03-29] MEDS: CHLORHEXIDINE GLUCONATE 2 % 1 PACK (2 CLOTHS) TOP SCH (03:28)
[2017-03-29 04:00] VITALS: BP 151/69; PULSE 74; RESP 20; TEMP 97.6; O2SAT 95
[2017-03-29] MEDS: LEVOTHYROXINE SODIUM 75 MCG TAB PO SCH (06:09)
[2017-03-29] MEDS: INSULIN ASPART SUPPLEMENTAL SCALE SQ SCH ×4 (06:10→21:37)
[2017-03-29 07:32] VITALS: BP 134/60; PULSE 81; RESP 17; TEMP 98.2; O2SAT 94
[2017-03-29] MEDS: DILTIAZEM HCL 60 MG TAB PO SCH ×3 (08:46→18:00)
[2017-03-29] MEDS: MULTIVITAMIN TAB PO SCH (08:46)
[2017-03-29] MEDS: CALCIUM CARBONATE 1.25 GM (CA 500 MG) TAB PO SCH ×3 (08:46→18:00)
[2017-03-29] MEDS: PANTOPRAZOLE SOD 40 MG DELAYED RELEASE TAB PO SCH (08:46)
[2017-03-29] MEDS: SENNOSIDES 8.6 MG TAB PO SCH ×2 (08:47→21:00)
[2017-03-29] MEDS: SODIUM CHLORIDE 0.9% FLUSH 10 ML FLUSH IV FLUSH SCH ×2 (08:47→21:35)
[2017-03-29] MEDS: BUMETANIDE INJ 1 MG/4 ML VIAL IV PUSH SCH ×2 (08:47→18:00)
[2017-03-29] MEDS: URSODIOL PO SCH ×2 (08:50→21:35)
[2017-03-29] MEDS: DOCUSATE SODIUM 100 MG CAP PO SCH ×2 (09:00→21:00)
[2017-03-29] MEDS: SODIUM CHLORIDE 0.9% FLUSH 10 ML FLUSH IVF SCH (09:00)
[2017-03-29] MEDS: ARGATROBAN IV SCH (09:10)
[2017-03-29] MEDS: SODIUM CHLOR 0.9% IV SCH (09:10)
--- NOTE | 2017-03-29 09:19 | PD.ONC.PN ---
Subjective Subjective Remarks Afebrile overnight. patient resting in room. No reported bleeding. Objective Data Date Time Temp Pulse Resp B/P Pulse Ox O2 Delivery O2 Flow Rate FiO2 03/29/17 07:32 98.2 81 17 134/60 94 Automatic Cuff 03/29/17 04:00 97.6 74 20 151/69 95 03/29/17 00:00 98.0 64 20 133/60 97 03/28/17 20:00 98.1 54 20 132/61 96 03/28/17 19:58 21 03/28/17 19:30 55 03/28/17 16:00 98.1 60 20 134/63 94 03/28/17 12:00 98.0 67 20 129/58 98 03/29/17 03/29/17 03/29/17 07:00 15:00 23:00 Intake Total 63 ml Balance 63 ml Result Diagram: 03/28/1790503/28/17 0906 Administered Medications Medications (Trade) Dose Ordered Sig/Tunde Route PRN Reason Start Time Stop Time Status Last Admin Dose Admin Atorvastatin Calcium (Lipitor) 10 mg HS PO 03/12/17 21:00 03/28/17 20:55 Levothyroxine Sodium (Synthroid) 75 mcg DAILY@06 PO 03/14/17 06:00 03/29/17 06:09 Sodium Chloride (NS Flush) DAILY IVF 03/13/17 09:00 03/29/17 09:00 Sodium Chloride (NS Flush) UNSCH PRN IVF SEE PROTOCOL 03/13/17 08:00 03/14/17 09:13 Sodium Chloride (NS Flush) 2 ml UNSCH PRN IV FLUSH FLUSH AFTER USING IV ACCESS 03/13/17 08:30 03/14/17 09:13 Sodium Chloride (NS Flush) 2 ml BID IV FLUSH 03/13/17 09:00 03/29/17 08:47 Acetaminophen (Tylenol) 650 mg Q6H PRN PO PAIN 1-2 AND/OR FEVER >101F 03/13/17 08:30 03/28/17 09:07 Acetaminophen/ Hydrocodone Bitart ([place] 5-325 Mg) 1 tab Q4H PRN PO PAIN SCALE 3 TO 5 03/13/17 08:30 03/28/17 20:54 Ondansetron HCl (Zofran Inj) 4 mg Q6H PRN IV NAUSEA OR VOMITING 03/13/17 08:30 03/26/17 08:50 Docusate Sodium (Colace) 100 mg BID PO 03/13/17 09:00 03/15/17 09:42 Miscellaneous Information 1 Q361D XX 03/13/17 08:30 03/14/17 09:14 Chlorhexidine Gluconate (Chlorhexidine 2% Cloth) Taper DAILY@04 TOP 03/14/17 04:00 03/10/18 03:59 03/19/17 00:04 Multivitamins 1 tab 1 tab DAILY PO 03/13/17 11:30 03/29/17 08:46 Ceftriaxone Sodium/Sodium Chloride (Rocephin Inj/NS Inj) 100 ml @ 200 mls/hr Q24H IV 03/14/17 13:00 03/28/17 11:59 Patient Own Medication PT OWN MED: Ursod... BID PO 03/15/17 13:00 03/29/17 08:50 Diltiazem HCl (Cardizem) 60 mg TID PO 03/19/17 18:00 03/29/17 08:46 Calcium Carbonate (Oscal) 1,000 mg TID PO 03/20/17 09:00 03/29/17 08:46 Bumetanide 1 mg 1 mg BID@18 IV PUSH 03/20/17 18:00 03/29/17 08:47 Sodium Chloride (NS 1000 ml Inj) 1,000 ml @ 200 mls/hr Q5H PRN IV WITH DIALYSIS 03/21/17 11:22 03/27/17 12:24 Heparin Sodium (Porcine) (Heparin Inj) UNSCH PRN .XX WITH DIALYSIS 03/21/17 11:30 03/27/17 12:25 Gentamicin Sulfate (Gentamicin (Dialysis) Inj) 20 mg UNSCH PRN IV WITH DIALYSIS 03/21/17 11:30 03/27/17 12:25 Epoetin Derrell (Epogen Inj) 4,000 units UNSCH PRN IV WITH DIALYSIS 03/21/17 11:30 03/27/17 12:25 Insulin Detemir (Levemir Inj) 10 units HS SQ 03/24/17 21:00 03/28/17 20:57 Pantoprazole Sodium (Protonix) 40 mg DAILY PO 03/24/17 11:00 03/29/17 08:46 Calcium Carbonate 500 mg 500 mg Q8HR PRN CHEW HEARTBURN 03/24/17 11:00 03/24/17 11:01 Argatroban/Sodium Chloride (Novastan Inj/NS 250 ml Inj) 250 ml @ 0 mls/hr TITRATE IV 03/27/17 15:00 03/29/17 09:10 Objective Remarks GENERAL: Elderly female, sitting up in chair next to bed, having blood drawn. SKIN: Warm and dry. HEAD: Normocephalic. EYES: No injection or drainage. NECK: Supple, trachea midline. EXTREMITIES: No cyanosis, or edema. MUSCULOSKELETAL: Adequate muscle tone. NEUROLOGICAL: No obvious focal deficit. Awake, alert, and oriented x3. Assessment/Plan Assessment 76 y/o female who presented to the ER with generalized weakness. Hematology consulted for progressive thrombocytopenia. HIT+ Plan 1. Continue Argatroban 2. await CBC 3. plan to bridge to coumadin once platelets closer to 100K Attending Statement The exam, history, and the medical decision-making described in the above note were completed with the assistance of the mid-level provider. I reviewed and agree with the findings presented. I attest that I had a [id number] encounter with the patient on the same day, and personally performed and documented my assessment and findings in the medical record. platelets are beginning to increase. It will take a while. no complication from argatroban and will continue infusion and move to Coumadin when platelets 100,000. no evidenced of thrombosis. Romy Oropeza March 29, 2017 09:19 Umesh Miller MD March 29, 2017 15:53 1. Continue Argatroban 2. await CBC 3. plan to bridge to coumadin once platelets closer to 100K Romy Oropeza March 29, 2017 09:19
[2017-03-29 09:36] LABS: AUTOMATED NEUTROPHIL # 12.5 TH/MM3 (1.8-7.7); BASOPHIL % 0.2 % (0.0-2.0); EOSINOPHIL % 0.3 % (0.0-4.0); HEMATOCRIT 31.4 % (35.0-46.0); LYMPHOCYTE # 0.7 TH/MM3 (1.0-4.8); MEAN CELL VOLUME 88.5 FL (80.0-100.0); MEAN CORPUSCULAR HEMOGLOBIN 28.5 PG (27.0-34.0); MEAN CORPUSCULAR HGB CONC 32.2 % (32.0-36.0); MONO % 5.5 % (0.0-8.0); PLATELET COUNT 31 TH/MM3 (150-450); RED BLOOD COUNT 3.55 MIL/MM3 (4.00-5.30); RED CELL DISTRIBUTION WIDTH 18.4 % (11.6-17.2); WHITE BLOOD COUNT 14.1 TH/MM3 (4.0-11.0)
[2017-03-29 09:38] LABS: HEMO FLAGS AUTO DIFF
[2017-03-29 09:41] LABS: APTT (PATIENT) 68.2 SEC (24.3-30.1)
[2017-03-29 10:02] LABS: BICARBONATE 27.6 MEQ/L (21.0-32.0)
[2017-03-29 10:06] LABS: POTASSIUM 4.2 MEQ/L (3.5-5.1)
[2017-03-29 10:40] LABS: PLATELET ESTIMATE SMEAR LOW (NORMAL); PLATELET MORPHOLOGY NORMAL (NORMAL); SCAN/DIFF AUTO DIFF CONFIRMED
--- NOTE | 2017-03-29 11:32 | HHI.NPPN ---
Subjective History of Present Illness 76 Year old W Female with ARF, Biliary Cirrhosis, streptococcus Viridans sepsis Additional Remarks Patient is alert, no SOB, started eating better. Review of Systems General Constitutional: Fatigue Objective Data Data 03/28/17 03/29/17 19:00 07:00 Intake Total 978 ml 911 ml Output Total 300 ml Balance 978 ml 611 ml Intake Oral 840 ml 720 ml IV Total 138 ml 191 ml Output Urine Total 300 ml # Voids 3 # Bowel Movements 1 0 Vital Signs Date Time Temp Pulse Resp B/P Pulse Ox O2 Delivery O2 Flow Rate FiO2 03/29/17 10:54 03/29/17 07:32 98.2 81 17 134/60 94 Automatic Cuff 03/29/17 04:00 97.6 74 20 151/69 95 03/29/17 00:00 98.0 64 20 133/60 97 03/28/17 20:00 98.1 54 20 132/61 96 03/28/17 19:58 21 03/28/17 19:30 55 03/28/17 16:00 98.1 60 20 134/63 94 03/28/17 12:00 98.0 67 20 129/58 98 -: 03/29/17 0819 03/29/17 0819 Physical Exam General Appearance: No Acute Distress, Comfortable, Anxious Neck Neck Exam: Neck Supple Pulmonary Resp Exam: Breath Sounds Equal, No Distress, Rhonchi, Decreased Bases Cardiology CV Exam: Irregular Gastrointestinal/Abdomen GI Exam: Soft, Non-Tender, Bowel Sounds Present Extremeties Extremities Exam: Moderate Edema Neurologic Neuro Exam: Alert, Awake, Oriented Psychiatric Psych Exam: Appropriate Responses Assessment/Plan Problem List: (1) Acute renal failure Plan: This is ARF Creatinine was worse and started on dialysis. Non oliguric, on Bumex. HD proceedings noted seen during dialysis 2 L UF HIT pos (2) Streptococcal bacteremia Plan: Infectious disease is following she is on broad-spectrum antibiotic ceftriaxone (3) Atrial flutter with rapid ventricular response Plan: Off diltiazem (4) Biliary liver cirrhosis Plan: Follows with GI (5) Thrombocytopenia Plan: HIT positive Hematology fu Argatroban Problem Qualifiers (1) Acute renal failure: Qualified Code: N17.9 - Acute renal failure, unspecified acute renal failure type Molly Peng MD March 29, 2017 11:32
[2017-03-29] MEDS: GENTAMICIN SULFATE (DIALYSIS USE ONLY) 20 MG/2 ML VIAL IV PRN (12:15)
[2017-03-29] MEDS: EPOETIN ALFA 10,000 UNITS/ML VIAL IV PRN (12:15)
[2017-03-29] MEDS: cefTRIAXone INJ 2,000 MG in SODIUM CHLORIDE 0.9% INJ 100 ML IV SCH (13:00)
[2017-03-29 13:07] VITALS: BP 145/65; PULSE 82; RESP 17; TEMP 97.9; O2SAT 98
--- NOTE | 2017-03-29 15:33 | HHI.PR ---
Subjective Remarks Follow up infective endocarditis/Renal failure 03/25/17-patient seen and examined; alert and oriented x 3; afebrile. NO acute event overnight 03/26/17-patient seen and examined, denies any chest pain or shortness of breath. Currently afebrile. Family by the bedside. 03/27/17-patient seen and examined; Doppler negative for DVT and patient denies any chest pain or shortness of breath. Thrombocytopenia worsening however patient denies any easy bruising. Cr improving. 03/28/17-patient seen and examined, she had hemodialysis yesterday. Platelet up to 27 today. BMP pending 03/29/17-patient seen and examined. Had HD today; no SOB Objective Vitals Vital Signs Date Time Temp Pulse Resp B/P Pulse Ox O2 Delivery O2 Flow Rate FiO2 03/29/17 13:07 97.9 82 17 145/65 98 03/29/17 10:54 03/29/17 07:32 98.2 81 17 134/60 94 Automatic Cuff 03/29/17 04:00 97.6 74 20 151/69 95 03/29/17 00:00 98.0 64 20 133/60 97 03/28/17 20:00 98.1 54 20 132/61 96 03/28/17 19:58 21 03/28/17 19:30 55 03/28/17 16:00 98.1 60 20 134/63 94 I/O 03/28/17 03/28/17 03/28/17 03/29/17 03/29/17 03/29/17 07:00 15:00 23:00 07:00 15:00 23:00 Intake Total 58 ml 978 ml 848 ml 63 ml Output Total 300 ml 2000 ml Balance 58 ml 978 ml 548 ml 63 ml -2000 ml Intake Oral 840 ml 720 ml IV Total 58 ml 138 ml 128 ml 63 ml Output Urine Total 300 ml Hemodialysis 2000 ml # Voids 3 # Bowel Movements 1 0 Result Diagram: 03/29/1781803/29/17818 Objective Remarks GENERAL: NAD SKIN: Warm and dry. HEAD: Normocephalic. EYES: No scleral icterus. No injection or drainage. NECK: Supple, trachea midline. No JVD or lymphadenopathy. CARDIOVASCULAR: Regular rate and rhythm with murmurs II/ BRENDA RESPIRATORY: Breath sounds equal bilaterally. No accessory muscle use. GASTROINTESTINAL: Abdomen soft, non-tender, nondistended. MUSCULOSKELETAL: No cyanosis, or edema. Multiple petechiae to bilateral lower extremities BACK: Nontender without obvious deformity. No CVA tenderness. 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 worsening cr A-fib with RVR Controlled on a Diltiazem PO Off Heparin Drip secondary to HIT Cardiology ff Anemia H&H stable and continue to monitor CBC Hyperlipidemia Statin Biliary Cirrhosis, state IV Spironolactone continued Lasix and Mckenna continued DM2 SSI Long acting insulins Diabetic Diet Follow blood sugars Hypothyroidism Continue supplementation GERD Hiatal Hernia Continue PPI Heparin induced Thrombocytopenia Currently on Argatroban Appreciate input from hematology Hypokalemia BMP pending DVT Prophylaxis Aubrey Cagle MD March 29, 2017 15:33
[2017-03-29 20:00] VITALS: PULSE 71
[2017-03-29 21:30] VITALS: BP 120/60; PULSE 67; RESP 20; TEMP 98.7; O2SAT 95
[2017-03-29] MEDS: ATORVASTATIN 10 MG TAB PO SCH (21:35)
[2017-03-29] MEDS: INSULIN DETEMIR 100 UNITS/ML VIAL SQ SCH (21:38)
[2017-03-29] MEDS: ACETAMINOPHEN/HYDROcodone 325 MG/5 MG TAB PO PRN (21:39)
[2017-03-30] VITALS: BP 110/66; PULSE 68; RESP 19; TEMP 98.9; O2SAT 96
[2017-03-30 04:00] VITALS: BP 146/70; PULSE 61; RESP 18; TEMP 97.8; O2SAT 97
[2017-03-30] MEDS: CHLORHEXIDINE GLUCONATE 2 % 1 PACK (2 CLOTHS) TOP SCH (04:00)
[2017-03-30] MEDS: LEVOTHYROXINE SODIUM 75 MCG TAB PO SCH (05:15)
[2017-03-30] MEDS: INSULIN ASPART SUPPLEMENTAL SCALE SQ SCH ×4 (06:04→21:46)
[2017-03-30 08:00] VITALS: BP 138/70; PULSE 70; RESP 16; TEMP 98.3; O2SAT 96
[2017-03-30 08:41] LABS: AUTOMATED NEUTROPHIL # 7.9 TH/MM3 (1.8-7.7); BASOPHIL % 0.4 % (0.0-2.0); EOSINOPHIL # 0.1 TH/MM3 (0-0.4); EOSINOPHIL % 1.2 % (0.0-4.0); HEMATOCRIT 29.7 % (35.0-46.0); LYMPH % 10.2 % (9.0-44.0); MEAN CELL VOLUME 88.1 FL (80.0-100.0); MEAN CORPUSCULAR HEMOGLOBIN 29.1 PG (27.0-34.0); MONO % 6.7 % (0.0-8.0); NEUT % 81.5 % (16.0-70.0); PLATELET COUNT 35 TH/MM3 (150-450); RED BLOOD COUNT 3.37 MIL/MM3 (4.00-5.30); RED CELL DISTRIBUTION WIDTH 18.1 % (11.6-17.2); WHITE BLOOD COUNT 9.7 TH/MM3 (4.0-11.0)
[2017-03-30 08:49] LABS: HEMO FLAGS AUTO DIFF
[2017-03-30] MEDS: SENNOSIDES 8.6 MG TAB PO SCH ×2 (09:00→21:47)
[2017-03-30] MEDS: DOCUSATE SODIUM 100 MG CAP PO SCH ×2 (09:00→21:47)
[2017-03-30] MEDS: SODIUM CHLORIDE 0.9% FLUSH 10 ML FLUSH IVF SCH (09:00)
[2017-03-30 09:27] LABS: ACANTHOCYTES OCC (NORMAL)
[2017-03-30 09:28] LABS: PLATELET ESTIMATE SMEAR LOW (NORMAL); PLATELET MORPHOLOGY NORMAL (NORMAL); SCAN/DIFF AUTO DIFF CONFIRMED
--- NOTE | 2017-03-30 10:03 | PD.ONC.PN ---
Subjective Subjective Remarks Afebrile overnight. patient resting comfortably. She slept okay overnight. She really wants to go home. No bleeding. Objective Data Date Time Temp Pulse Resp B/P Pulse Ox O2 Delivery O2 Flow Rate FiO2 03/30/17 08:00 98.3 70 16 138/70 96 03/30/17 04:00 97.8 61 18 146/70 97 03/30/17 00:00 98.9 68 19 110/66 96 03/29/17 21:30 98.7 67 20 120/60 95 03/29/17 20:00 71 03/29/17 13:07 97.9 82 17 145/65 98 03/29/17 10:54 03/30/17 03/30/17 03/30/17 06:59 14:59 22:59 Intake Total 720 ml Output Total 590 ml Balance 130 ml Result Diagram: 03/30/17 0805 03/29/17 0819 Laboratory Results Laboratory Tests Test 03/30/17 08:05 White Blood Count 9.7 TH/MM3 Red Blood Count 3.37 MIL/MM3 Hemoglobin 9.8 GM/DL Hematocrit 29.7 % Mean Corpuscular Volume 88.1 FL Mean Corpuscular Hemoglobin 29.1 PG Mean Corpuscular Hemoglobin 33.0 % Concent Red Cell Distribution Width 18.1 % Platelet Count 35 TH/MM3 Mean Platelet Volume 8.7 FL Neutrophils (%) (Auto) 81.5 % Lymphocytes (%) (Auto) 10.2 % Monocytes (%) (Auto) 6.7 % Eosinophils (%) (Auto) 1.2 % Basophils (%) (Auto) 0.4 % Neutrophils # (Auto) 7.9 TH/MM3 Lymphocytes # (Auto) 1.0 TH/MM3 Monocytes # (Auto) 0.7 TH/MM3 Eosinophils # (Auto) 0.1 TH/MM3 Basophils # (Auto) 0.0 TH/MM3 CBC Comment AUTO DIFF Differential Comment AUTO DIFF CONFIRMED Platelet Estimate LOW Platelet Morphology Comment NORMAL Acanthocytes OCC Administered Medications Medications (Trade) Dose Ordered Sig/Tunde Route PRN Reason Start Time Stop Time Status Last Admin Dose Admin Atorvastatin Calcium (Lipitor) 10 mg HS PO 03/12/17 21:00 03/29/17 21:35 Levothyroxine Sodium (Synthroid) 75 mcg DAILY@06 PO 03/14/17 06:00 03/30/17 05:15 Sodium Chloride (NS Flush) DAILY IVF 03/13/17 09:00 03/29/17 09:00 Sodium Chloride (NS Flush) UNSCH PRN IVF SEE PROTOCOL 03/13/17 08:00 03/14/17 09:13 Sodium Chloride (NS Flush) 2 ml UNSCH PRN IV FLUSH FLUSH AFTER USING IV ACCESS 03/13/17 08:30 03/14/17 09:13 Sodium Chloride (NS Flush) 2 ml BID IV FLUSH 03/13/17 09:00 03/29/17 21:35 Acetaminophen (Tylenol) 650 mg Q6H PRN PO PAIN 1-2 AND/OR FEVER >101F 03/13/17 08:30 03/28/17 09:07 Acetaminophen/ Hydrocodone Bitart (Garrison 5-325 Mg) 1 tab Q4H PRN PO PAIN SCALE 3 TO 5 03/13/17 08:30 03/29/17 21:39 Ondansetron HCl (Zofran Inj) 4 mg Q6H PRN IV NAUSEA OR VOMITING 03/13/17 08:30 03/26/17 08:50 Docusate Sodium (Colace) 100 mg BID PO 03/13/17 09:00 03/15/17 09:42 Miscellaneous Information 1 Q361D XX 03/13/17 08:30 03/14/17 09:14 Chlorhexidine Gluconate (Chlorhexidine 2% Cloth) Taper DAILY@04 TOP 03/14/17 04:00 03/10/18 03:59 03/19/17 00:04 Multivitamins 1 tab 1 tab DAILY PO 03/13/17 11:30 03/29/17 08:46 Ceftriaxone Sodium/Sodium Chloride (Rocephin Inj/NS Inj) 100 ml @ 200 mls/hr Q24H IV 03/14/17 13:00 03/29/17 13:00 Patient Own Medication PT OWN MED: Ursod... BID PO 03/15/17 13:00 03/29/17 21:35 Diltiazem HCl (Cardizem) 60 mg TID PO 03/19/17 18:00 03/29/17 18:00 Calcium Carbonate (Oscal) 1,000 mg TID PO 03/20/17 09:00 03/29/17 18:00 Bumetanide 1 mg 1 mg BID@09,18 IV PUSH 03/20/17 18:00 03/29/17 18:00 Sodium Chloride (NS 1000 ml Inj) 1,000 ml @ 200 mls/hr Q5H PRN IV WITH DIALYSIS 03/21/17 11:22 03/27/17 12:24 Heparin Sodium (Porcine) (Heparin Inj) UNSCH PRN .XX WITH DIALYSIS 03/21/17 11:30 03/27/17 12:25 Gentamicin Sulfate (Gentamicin (Dialysis) Inj) 20 mg UNSCH PRN IV WITH DIALYSIS 03/21/17 11:30 03/29/17 12:15 Epoetin Derrell (Epogen Inj) 4,000 units UNSCH PRN IV WITH DIALYSIS 03/21/17 11:30 03/29/17 12:15 Insulin Detemir (Levemir Inj) 10 units HS SQ 03/24/17 21:00 03/29/17 21:38 Pantoprazole Sodium (Protonix) 40 mg DAILY PO 03/24/17 11:00 03/29/17 08:46 Calcium Carbonate 500 mg 500 mg Q8HR PRN CHEW HEARTBURN 03/24/17 11:00 03/24/17 11:01 Argatroban/Sodium Chloride (Novastan Inj/NS 250 ml Inj) 250 ml @ 0 mls/hr TITRATE IV 03/27/17 15:00 03/29/17 09:10 Objective Remarks GENERAL: Elderly female, sitting up in bed with at bedside. SKIN: Warm and dry. old abrasions noted on bilateral lower extremities. IV sites clean without bleeding HEAD: Normocephalic. EYES: No injection or drainage. NECK: Supple, trachea midline. EXTREMITIES: No cyanosis. MUSCULOSKELETAL: Adequate muscle tone. NEUROLOGICAL: awake and alert, normal speech. moving all extremities. Assessment/Plan Assessment 76 y/o female with thrombocytopenia. 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 Continue Argatroban 2. monitor CBC 3. d/w patient plan to wait until platelets closer to 100K before bridging to Coumadin Attending Statement The exam, history, and the medical decision-making described in the above note were completed with the assistance of the mid-level provider. I reviewed and agree with the findings presented. I attest that I had a [id number] encounter with the patient on the same day, and personally performed and documented my assessment and findings in the medical record. platelets slowing increasing with today only day 4. no bleeding and she is stable. no thrombosis. continue same. reviewed with plans. Romy Oropeza March 30, 2017 10:03 Umesh Miller MD March 30, 2017 12:44
--- NOTE | 2017-03-30 10:08 | HHI.PR ---
Subjective Remarks Follow up infective endocarditis/Renal failure 03/25/17-patient seen and examined; alert and oriented x 3; afebrile. NO acute event overnight 03/26/17-patient seen and examined, denies any chest pain or shortness of breath. Currently afebrile. Family by the bedside. 03/27/17-patient seen and examined; Doppler negative for DVT and patient denies any chest pain or shortness of breath. Thrombocytopenia worsening however patient denies any easy bruising. Cr improving. 03/28/17-patient seen and examined, she had hemodialysis yesterday. Platelet up to 27 today. BMP pending 03/29/17-patient seen and examined. Had HD today; no SOB 03/30/17-patient seen and examined, states she's having semi-loose BM, no other issues Objective Vitals Vital Signs Date Time Temp Pulse Resp B/P Pulse Ox O2 Delivery O2 Flow Rate FiO2 03/30/17 08:00 98.3 70 16 138/70 96 03/30/17 04:00 97.8 61 18 146/70 97 03/30/17 00:00 98.9 68 19 110/66 96 03/29/17 21:30 98.7 67 20 120/60 95 03/29/17 20:00 71 03/29/17 13:07 97.9 82 17 145/65 98 03/29/17 10:54 I/O 03/29/17 03/29/17 03/29/17 03/30/17 03/30/17 03/30/17 07:00 15:00 23:00 07:00 15:00 23:00 Intake Total 63 ml 720 ml Output Total 2000 ml 590 ml Balance 63 ml -2000 ml 130 ml Intake Oral 720 ml IV Total 63 ml Output Urine Total 590 ml Hemodialysis 2000 ml # Bowel Movements 2 Result Diagram: 03/30/17 0805 03/29/17 0819 Objective Remarks GENERAL: NAD SKIN: Warm and dry. HEAD: Normocephalic. EYES: No scleral icterus. No injection or drainage. NECK: Supple, trachea midline. No JVD or lymphadenopathy. CARDIOVASCULAR: Regular rate and rhythm with murmurs II/ BRENDA RESPIRATORY: Breath sounds equal bilaterally. No accessory muscle use. GASTROINTESTINAL: Abdomen soft, non-tender, nondistended. MUSCULOSKELETAL: No cyanosis, or edema. Multiple petechiae to bilateral lower extremities BACK: Nontender without obvious deformity. No CVA tenderness. 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 worsening cr A-fib with RVR Controlled on a Diltiazem PO Off Heparin Drip secondary to HIT Cardiology ff Anemia H&H stable and continue to monitor CBC Hyperlipidemia Statin Biliary Cirrhosis, state IV Spironolactone continued Lasix and Mckenna continued DM2 SSI Long acting insulins Diabetic Diet Hypothyroidism Continue supplementation GERD Hiatal Hernia Continue PPI Heparin induced Thrombocytopenia Currently on Argatroban Appreciate input from hematology Hypokalemia Resolved and continue to monitor Diarrhea Rule out C. difficile with C. difficile PCR and treat accordingly DVT Prophylaxis Aubrey Cagle MD March 30, 2017 10:07
[2017-03-30] MEDS: BUMETANIDE INJ 1 MG/4 ML VIAL IV PUSH SCH ×2 (10:09→19:43)
[2017-03-30] MEDS: SODIUM CHLORIDE 0.9% FLUSH 10 ML FLUSH IV FLUSH SCH ×2 (10:10→21:47)
[2017-03-30] MEDS: URSODIOL PO SCH ×2 (10:11→21:48)
[2017-03-30] MEDS: DILTIAZEM HCL 60 MG TAB PO SCH ×3 (10:12→17:12)
[2017-03-30] MEDS: PANTOPRAZOLE SOD 40 MG DELAYED RELEASE TAB PO SCH (10:13)
[2017-03-30] MEDS: MULTIVITAMIN TAB PO SCH (10:13)
[2017-03-30] MEDS: CALCIUM CARBONATE 1.25 GM (CA 500 MG) TAB PO SCH ×3 (10:13→17:12)
[2017-03-30] MEDS: ACETAMINOPHEN 325 MG TAB PO PRN (10:23)
[2017-03-30 12:00] VITALS: BP 127/67; PULSE 136; PULSE 73; RESP 16; TEMP 97.4; O2SAT 98
--- NOTE | 2017-03-30 15:01 | HHI.NPPN ---
Subjective History of Present Illness 76 Year old W Female with ARF, Biliary Cirrhosis, streptococcus Viridans sepsis Additional Remarks Patient is alert, no SOB, started eating better. Review of Systems General Constitutional: Fatigue Objective Data Data 03/29/17 03/30/17 19:00 07:00 Output Total 2000 ml Balance -2000 ml Hemodialysis 2000 ml Vital Signs Date Time Temp Pulse Resp B/P Pulse Ox O2 Delivery O2 Flow Rate FiO2 03/30/17 12:00 97.4 136 16 127/67 98 03/30/17 08:00 98.3 70 16 138/70 96 03/30/17 04:00 97.8 61 18 146/70 97 03/30/17 00:00 98.9 68 19 110/66 96 03/29/17 21:30 98.7 67 20 120/60 95 03/29/17 20:00 71 -: 03/30/17 0805 03/29/17 0819 Physical Exam General Appearance: No Acute Distress, Comfortable, Anxious Neck Neck Exam: Neck Supple Pulmonary Resp Exam: Breath Sounds Equal, No Distress, Rhonchi, Decreased Bases Cardiology CV Exam: Irregular Gastrointestinal/Abdomen GI Exam: Soft, Non-Tender, Bowel Sounds Present Extremeties Extremities Exam: Moderate Edema Neurologic Neuro Exam: Alert, Awake, Oriented Psychiatric Psych Exam: Appropriate Responses Assessment/Plan Problem List: (1) Acute renal failure Plan: This is ARF Creatinine was worse and started on dialysis. Non oliguric, on Bumex. HD next Friday follow BMP HIT pos (2) Streptococcal bacteremia Plan: Infectious disease is following she is on broad-spectrum antibiotic ceftriaxone (3) Atrial flutter with rapid ventricular response Plan: Off diltiazem (4) Biliary liver cirrhosis Plan: Follows with GI (5) Thrombocytopenia Plan: HIT positive Hematology fu Argatroban Problem Qualifiers (1) Acute renal failure: Qualified Code: N17.9 - Acute renal failure, unspecified acute renal failure type Molly Peng MD March 30, 2017 15:01
[2017-03-30 16:00] VITALS: BP 120/61; PULSE 79; RESP 16; TEMP 98.1; O2SAT 96
[2017-03-30] MEDS: cefTRIAXone INJ 2,000 MG in SODIUM CHLORIDE 0.9% INJ 100 ML IV SCH (17:11)
[2017-03-30 20:00] VITALS: BP 130/70; PULSE 61; RESP 18; TEMP 97.7; O2SAT 98
[2017-03-30] MEDS: INSULIN DETEMIR 100 UNITS/ML VIAL SQ SCH (21:47)
[2017-03-30] MEDS: ACETAMINOPHEN/HYDROcodone 325 MG/5 MG TAB PO PRN (21:49)
[2017-03-30] MEDS: ATORVASTATIN 10 MG TAB PO SCH (21:49)
[2017-03-31] VITALS (9 sets, daily range): BP systolic 110–137; BP diastolic 60–72; PULSE 68–90; RESP 18–20; TEMP 97.6–98.9; O2SAT 91–98
[2017-03-31 00:22] LABS: APTT (PATIENT) 72.1 SEC (24.3-30.1)
[2017-03-31] MEDS: CHLORHEXIDINE GLUCONATE 2 % 1 PACK (2 CLOTHS) TOP SCH (04:00)
[2017-03-31] MEDS: LEVOTHYROXINE SODIUM 75 MCG TAB PO SCH (06:26)
[2017-03-31] MEDS: INSULIN ASPART SUPPLEMENTAL SCALE SQ SCH ×4 (06:29→21:42)
[2017-03-31 07:19] LABS: APTT (PATIENT) 78.8 SEC (24.3-30.1)
[2017-03-31 07:29] LABS: BICARBONATE 34.2 MEQ/L (21.0-32.0)
[2017-03-31 07:30] LABS: POTASSIUM 3.3 MEQ/L (3.5-5.1)
--- NOTE | 2017-03-31 08:55 | HHI.PR ---
Subjective Remarks Follow up infective endocarditis/Renal failure 03/25/17-patient seen and examined; alert and oriented x 3; afebrile. NO acute event overnight 03/26/17-patient seen and examined, denies any chest pain or shortness of breath. Currently afebrile. Family by the bedside. 03/27/17-patient seen and examined; Doppler negative for DVT and patient denies any chest pain or shortness of breath. Thrombocytopenia worsening however patient denies any easy bruising. Cr improving. 03/28/17-patient seen and examined, she had hemodialysis yesterday. Platelet up to 27 today. BMP pending 03/29/17-patient seen and examined. Had HD today; no SOB 03/30/17-patient seen and examined, states she's having semi-loose BM, no other issues 03/31/17patient seen and examined, complaints of sore throat but denies any chills or cough. Renal indices improving Objective Vitals Vital Signs Date Time Temp Pulse Resp B/P Pulse Ox O2 Delivery O2 Flow Rate FiO2 03/31/17 04:00 98.5 82 18 110/60 97 03/31/17 00:00 98.2 68 18 110/72 96 03/30/17 20:00 97.7 61 18 130/70 98 03/30/17 17:52 21 03/30/17 17:09 18 03/30/17 16:00 98.1 79 16 120/61 96 03/30/17 12:00 73 03/30/17 12:00 97.4 136 16 127/67 98 I/O 03/30/17 03/30/17 03/30/17 03/31/17 03/31/17 03/31/17 07:00 15:00 23:00 07:00 15:00 23:00 Intake Total 1800 ml Output Total 1040 ml Balance 760 ml Intake Oral 1800 ml Output Urine Total 1040 ml # Bowel Movements 4 Result Diagram: 03/30/1780403/31/1742 Imaging Last Impressions Upper Extremity Ultrasound 03/26/17 0000 Signed Impressions: Service Date/Time: Sunday, March 26, 2017 21:49 - CONCLUSION: Normal examination. Denton Parker Jr., MD Lower Extremity Ultrasound 03/26/17 0000 Signed Impressions: Service Date/Time: Sunday, March 26, 2017 21:28 - CONCLUSION: 1. No DVT. 2. Subcutaneous edema involving both calves. Denton Parker Jr., MD Chest X-Ray 03/21/17 0000 Signed Impressions: Service Date/Time: Tuesday, March 21, 2017 09:16 - CONCLUSION: Bibasilar opacities characteristic of pleural effusions with associated volume loss and/or consolidation. The perihilar interstitial opacities are suggestive of pulmonary edema. Reynaldo Higgins MD Catheter Placement X-Ray 03/21/17 Signed Impressions: Service Date/Time: Tuesday, March 21, 2017 14:31 - CONCLUSION: Uncomplicated line placement as above. Denton Parker Jr., MD Renal Ultrasound 03/18/17 Signed Impressions: Service Date/Time: Saturday, March 18, 2017 17:35 - CONCLUSION: 1. Echogenic kidneys bilaterally compatible with medical renal disease. 2. Small volume ascites Dimitrios Lopez MD Neck CTA 03/12/17 0000 Signed Impressions: Service Date/Time: Sunday, March 12, 2017 20:22 - CONCLUSION: Slight atherosclerosis of both carotid bifurcations without narrowing. Dominant left vertebral artery. Reynaldo Lazar MD Head CTA 03/12/17 0000 Signed Impressions: Service Date/Time: Sunday, March 12, 2017 20:22 - CONCLUSION: Normal intracranial arteries. Reynaldo Lazar MD Head CT 03/12/17 0000 Signed Impressions: Service Date/Time: Sunday, March 12, 2017 19:02 - CONCLUSION: Negative noncontrast head CT. eRynaldo Lazar MD Objective Remarks GENERAL: NAD SKIN: Warm and dry. HEAD: Normocephalic. EYES: No scleral icterus. No injection or drainage. NECK: Supple, trachea midline. No JVD or lymphadenopathy. CARDIOVASCULAR: Regular rate and rhythm with murmurs II/ BRENDA RESPIRATORY: Breath sounds equal bilaterally. No accessory muscle use. GASTROINTESTINAL: Abdomen soft, non-tender, nondistended. MUSCULOSKELETAL: No cyanosis, or edema. Multiple petechiae to bilateral lower extremities BACK: Nontender without obvious deformity. No CVA tenderness. 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 Improving cr A-fib with RVR Controlled on a Diltiazem PO Off Heparin Drip secondary to HIT Cardiology ff Anemia H&H stable and continue to monitor CBC Hyperlipidemia Statin Biliary Cirrhosis, state IV Spironolactone continued Lasix and Mckenna continued DM2 SSI Long acting insulins Diabetic Diet Hypothyroidism Continue supplementation GERD Hiatal Hernia Continue PPI Heparin induced Thrombocytopenia + CHAPO Currently on Argatroban Bridge to Coumadin when platelet count>[id number] Appreciate input from hematology Hypokalemia Give potassium 60 mEq 1 now and repeat BMP in morning Sore throat Start Lozenge PRN Diarrhea Rule out C. difficile with C. difficile PCR and treat accordingly DVT Prophylaxis SCDs Aubrey Snyder MD March 31, 2017 08:55
[2017-03-31] MEDS: DOCUSATE SODIUM 100 MG CAP PO SCH ×2 (09:00→21:00)
[2017-03-31] MEDS: SODIUM CHLORIDE 0.9% FLUSH 10 ML FLUSH IVF SCH (09:00)
[2017-03-31] MEDS ORDERED: MENTHOL LOZENGE BUCCAL PRN (09:00)
[2017-03-31] MEDS ORDERED: POTASSIUM CHLORIDE 10 MEQ CONTROLLED RELEASE TAB PO ONE (09:00)
[2017-03-31] MEDS: SENNOSIDES 8.6 MG TAB PO SCH ×2 (09:00→21:00)
[2017-03-31] MEDS: SODIUM CHLORIDE 0.9% FLUSH 10 ML FLUSH IV FLUSH SCH ×2 (09:00→21:00)
[2017-03-31] MEDS: URSODIOL PO SCH ×2 (09:04→21:00)
[2017-03-31] MEDS: DILTIAZEM HCL 60 MG TAB PO SCH ×3 (09:10→18:24)
[2017-03-31] MEDS: MULTIVITAMIN TAB PO SCH (09:10)
[2017-03-31] MEDS: PANTOPRAZOLE SOD 40 MG DELAYED RELEASE TAB PO SCH (09:10)
[2017-03-31] MEDS: CALCIUM CARBONATE 1.25 GM (CA 500 MG) TAB PO SCH ×3 (09:19→18:23)
[2017-03-31] MEDS: BUMETANIDE INJ 1 MG/4 ML VIAL IV PUSH SCH ×2 (09:19→18:24)
--- NOTE | 2017-03-31 11:00 | HHI.NPPN ---
Subjective History of Present Illness 76 Year old W Female with ARF, Biliary Cirrhosis, streptococcus Viridans sepsis Additional Remarks Patient is alert, no SOB, started eating better. Review of Systems General Constitutional: Fatigue Objective Data Data 03/30/17 03/31/17 19:00 07:00 Intake Total 1800 ml Output Total 1040 ml Balance 760 ml Intake Oral 1800 ml Output Urine Total 1040 ml # Bowel Movements 4 Vital Signs Date Time Temp Pulse Resp B/P Pulse Ox O2 Delivery O2 Flow Rate FiO2 03/31/17 08:00 98.9 90 18 134/70 96 03/31/17 04:00 98.5 82 18 110/60 97 03/31/17 00:00 98.2 68 18 110/72 96 03/30/17 20:00 97.7 61 18 130/70 98 03/30/17 17:52 21 03/30/17 17:09 18 03/30/17 16:00 98.1 79 16 120/61 96 03/30/17 12:00 73 03/30/17 12:00 97.4 136 16 127/67 98 -: 03/30/17 0805 03/31/17 0542 Physical Exam General Appearance: No Acute Distress, Comfortable, Anxious Neck Neck Exam: Neck Supple Pulmonary Resp Exam: Breath Sounds Equal, No Distress, Rhonchi, Decreased Bases Cardiology CV Exam: Irregular Gastrointestinal/Abdomen GI Exam: Soft, Non-Tender, Bowel Sounds Present Extremeties Extremities Exam: Moderate Edema Neurologic Neuro Exam: Alert, Awake, Oriented Psychiatric Psych Exam: Appropriate Responses Assessment/Plan Problem List: (1) Acute renal failure Plan: This is ARF Creatinine improved off dialysis. Non oliguric, on Bumex. 1 L UOP K replaced hold HD as UOP improved Cr declined HIT pos (2) Streptococcal bacteremia Plan: Infectious disease is following she is on broad-spectrum antibiotic ceftriaxone (3) Atrial flutter with rapid ventricular response Plan: Off diltiazem (4) Biliary liver cirrhosis Plan: Follows with GI (5) Thrombocytopenia Plan: HIT positive Hematology fu Argatroban Problem Qualifiers (1) Acute renal failure: Qualified Code: N17.9 - Acute renal failure, unspecified acute renal failure type Molly Peng MD March 31, 2017 11:00
[2017-03-31] MEDS: cefTRIAXone INJ 2,000 MG in SODIUM CHLORIDE 0.9% INJ 100 ML IV SCH (13:59)
--- NOTE | 2017-03-31 14:56 | PD.ONC.PN ---
Subjective Subjective Remarks Afebrile overnight. Pt sitting up in chair at bedside talking to visitor. Happy that the swelling in her legs is improved. Denies pain, SOB or bleeding. RN at bedside states no concerns. Objective Data Date Time Temp Pulse Resp B/P Pulse Ox O2 Delivery O2 Flow Rate FiO2 03/31/17 09:27 97 21 03/31/17 08:22 83 03/31/17 08:00 98.9 90 18 134/70 96 03/31/17 04:00 98.5 82 18 110/60 97 03/31/17 00:00 98.2 68 18 110/72 96 03/30/17 20:00 97.7 61 18 130/70 98 03/30/17 17:52 21 03/30/17 17:09 18 03/30/17 16:00 98.1 79 16 120/61 96 03/31/17 03/31/17 03/31/17 07:00 15:00 23:00 Intake Total 232 ml Output Total 200 ml Balance 32 ml Result Diagram: 03/30/17 0803/31/17 0542 Laboratory Results Laboratory Tests Test 03/30/17 03/31/17 23:59 05:42 Activated Partial 72.1 SEC 78.8 SEC Thromboplast Time Sodium Level 134 MEQ/L Potassium Level 3.3 MEQ/L Chloride Level 92 MEQ/L Carbon Dioxide Level 34.2 MEQ/L Anion Gap 8 MEQ/L Blood Urea Nitrogen 16 MG/DL Creatinine 2.17 MG/DL Estimat Glomerular Filtration 22 ML/MIN Rate Random Glucose 78 MG/DL Calcium Level 7.9 MG/DL Administered Medications Medications (Trade) Dose Ordered Sig/Tunde Route PRN Reason Start Time Stop Time Status Last Admin Dose Admin Atorvastatin Calcium (Lipitor) 10 mg HS PO 03/12/17 21:00 03/30/17 21:49 Levothyroxine Sodium (Synthroid) 75 mcg DAILY@06 PO 03/14/17 06:00 03/31/17 06:26 Sodium Chloride (NS Flush) DAILY IVF 03/13/17 09:00 03/31/17 09:00 Sodium Chloride (NS Flush) UNSCH PRN IVF SEE PROTOCOL 03/13/17 08:00 03/14/17 09:13 Sodium Chloride (NS Flush) 2 ml UNSCH PRN IV FLUSH FLUSH AFTER USING IV ACCESS 03/13/17 08:30 03/14/17 09:13 Sodium Chloride (NS Flush) 2 ml BID IV FLUSH 03/13/17 09:00 03/31/17 09:00 Acetaminophen (Tylenol) 650 mg Q6H PRN PO PAIN 1-2 AND/OR FEVER >101F 03/13/17 08:30 03/30/17 10:23 Acetaminophen/ Hydrocodone Bitart ([place] 5-325 Mg) 1 tab Q4H PRN PO PAIN SCALE 3 TO 5 03/13/17 08:30 03/30/17 21:49 Ondansetron HCl (Zofran Inj) 4 mg Q6H PRN IV NAUSEA OR VOMITING 03/13/17 08:30 03/26/17 08:50 Docusate Sodium (Colace) 100 mg BID PO 03/13/17 09:00 03/15/17 09:42 Miscellaneous Information 1 Q361D XX 03/13/17 08:30 03/14/17 09:14 Chlorhexidine Gluconate (Chlorhexidine 2% Cloth) Taper DAILY@04 TOP 03/14/17 04:00 03/10/18 03:59 03/19/17 00:04 Multivitamins 1 tab 1 tab DAILY PO 03/13/17 11:30 03/31/17 09:10 Ceftriaxone Sodium/Sodium Chloride (Rocephin Inj/NS Inj) 100 ml @ 200 mls/hr Q24H IV 03/14/17 13:00 03/31/17 13:59 Patient Own Medication PT OWN MED: Ursod... BID PO 03/15/17 13:00 03/31/17 09:04 Diltiazem HCl (Cardizem) 60 mg TID PO 03/19/17 18:00 03/31/17 13:59 Calcium Carbonate (Oscal) 1,000 mg TID PO 03/20/17 09:00 03/31/17 13:59 Bumetanide 1 mg 1 mg BID@,18 IV PUSH 03/20/17 18:00 03/31/17 09:19 Sodium Chloride (NS 1000 ml Inj) 1,000 ml @ 200 mls/hr Q5H PRN IV WITH DIALYSIS 03/21/17 11:22 03/27/17 12:24 Heparin Sodium (Porcine) (Heparin Inj) UNSCH PRN .XX WITH DIALYSIS 03/21/17 11:30 03/27/17 12:25 Gentamicin Sulfate (Gentamicin (Dialysis) Inj) 20 mg UNSCH PRN IV WITH DIALYSIS 03/21/17 11:30 03/29/17 12:15 Epoetin Derrell (Epogen Inj) 4,000 units UNSCH PRN IV WITH DIALYSIS 03/21/17 11:30 03/29/17 12:15 Insulin Detemir (Levemir Inj) 10 units HS SQ 03/24/17 21:00 03/30/17 21:47 Pantoprazole Sodium (Protonix) 40 mg DAILY PO 03/24/17 11:00 03/31/17 09:10 Calcium Carbonate (Tums Chew) 500 mg Q8HR PRN CHEW HEARTBURN 03/24/17 11:00 03/24/17 11:01 Objective Remarks GENERAL: Elderly female, sitting up in chair at bedside with visitor present. SKIN: Warm and dry. old abrasions noted on bilateral lower extremities. IV sites clean without bleeding HEAD: Normocephalic. EYES: No injection or drainage. NECK: Supple, trachea midline. EXTREMITIES: No cyanosis. Bilateral 3+edema to LE. MUSCULOSKELETAL: Adequate muscle tone. NEUROLOGICAL: Awake and alert, normal speech. moving all extremities. Assessment/Plan Problem List: (1) Thrombocytopenia Status: Chronic Plan: -- +chronic thrombocytopenia for some time -- HIT positive -- Possibility of acquired von Willebrand deficiency from the prosthetic aortic valve -- Monitor Coags while on Argatroban Hx/Workup: Mrs. Jerome is a 76-year-old woman who presented with generalized weakness on 03/11/2017. She has a history of thrombocytopenia reported by the patient and her during her cataract surgery. Her platelet count on admission was 148,000. It continued to trend down. She is noted to have started heparin on 03/14 as well as March 17. She had gradual decrease of platelet count temporarily related to starting heparin protocol. Assessment 76 y/o female with thrombocytopenia. 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 Platelets improving slowly. Continue argatroban for now. 2. monitor CBC, monitor for bleeding. 3. Plan to bridge to coumadin once platelets closer to 100K. Attending Statement The exam, history, and the medical decision-making described in the above note were completed with the assistance of the mid-level provider. I reviewed and agree with the findings presented. I attest that I had a [id number] encounter with the patient on the same day, and personally performed and documented my assessment and findings in the medical record. No complaints, patiently waiting for platelet recovery, still thrombocytopenic No bleeding. All heparins DCmari. Caitlin Das March 31, 2017 14:55 Mojgan Mcginnis MD March 31, 2017 20:30
[2017-03-31] MEDS: ARGATROBAN IV SCH (15:11)
[2017-03-31] MEDS: SODIUM CHLOR 0.9% IV SCH (15:11)
--- NOTE | 2017-03-31 16:37 | HHI.IDPN ---
Note Infectious Disease Note Patient feels okay. No nausea. Denies SOB. No chills, No CP. Afebrile. at bedside. Dialysis on hold. 03/19 - Blood culture no growth. 03/14 - Blood culture has no growth. 03/13 - Blood cultures has strep viridans. 03/12 - Blood cultures has strep viridans. 03/11 - Blood cultures has strep viridans. Presented to emergency department on 03/11 with generalized weakness. The patient previously presented to [facility] one week ago after three days of generalized weakness and diarrhea. She was evaluated and the white blood cell count was normal and she was afebrile. PAST MEDICAL HISTORY 1. Biliary cirrhosis 2. Diabetes mellitus 3. Appendectomy 4. Hysterectomy. 5. Aortic valve replacement in 2012 with Bovine valve. 6. Gastroesophageal reflux disease 7. Bilateral cataract surgery, one was done February 2017 and the first was January 2017. ALLERGIES AMPICILLIN LEAD TO SHORTNESS OF BREATH. PATIENT ABLE TO TOLERATE AMOXICILLIN. LEVAQUIN SULFA MACROBID IODINE CONTRAST MEDIA. HEART DISEASE. ANTIBIOTICS: Ceftriaxone. SOCIAL HISTORY No tobacco use. Social alcohol use. No illicit drugs. OBJECTIVE: Vital Signs Date Time Temp Pulse Resp B/P Pulse Ox O2 Delivery O2 Flow Rate FiO2 03/31/17 09:27 97 21 03/31/17 08:22 83 03/31/17 08:00 98.9 90 18 134/70 96 03/31/17 04:00 98.5 82 18 110/60 97 03/31/17 00:00 98.2 68 18 110/72 96 03/30/17 20:00 97.7 61 18 130/70 98 03/30/17 17:52 21 03/30/17 17:09 18 Laboratory Tests Test 03/30/17 08:05 White Blood Count 9.7 TH/MM3 Red Blood Count 3.37 MIL/MM3 Hemoglobin 9.8 GM/DL Hematocrit 29.7 % Mean Corpuscular Volume 88.1 FL Mean Corpuscular Hemoglobin 29.1 PG Mean Corpuscular Hemoglobin 33.0 % Concent Red Cell Distribution Width 18.1 % Platelet Count 35 TH/MM3 Mean Platelet Volume 8.7 FL Neutrophils (%) (Auto) 81.5 % Lymphocytes (%) (Auto) 10.2 % Monocytes (%) (Auto) 6.7 % Eosinophils (%) (Auto) 1.2 % Basophils (%) (Auto) 0.4 % Neutrophils # (Auto) 7.9 TH/MM3 Lymphocytes # (Auto) 1.0 TH/MM3 Monocytes # (Auto) 0.7 TH/MM3 Eosinophils # (Auto) 0.1 TH/MM3 Basophils # (Auto) 0.0 TH/MM3 CBC Comment AUTO DIFF Differential Comment AUTO DIFF CONFIRMED Platelet Estimate LOW Platelet Morphology Comment NORMAL Acanthocytes OCC Laboratory Tests Test 03/31/17 05:42 Sodium Level 134 MEQ/L Potassium Level 3.3 MEQ/L Chloride Level 92 MEQ/L Carbon Dioxide Level 34.2 MEQ/L Anion Gap 8 MEQ/L Blood Urea Nitrogen 16 MG/DL Creatinine 2.17 MG/DL Estimat Glomerular Filtration 22 ML/MIN Rate Random Glucose 78 MG/DL Calcium Level 7.9 MG/DL IMAGING: Upper Extremity Ultrasound 03/26/17 0000 Signed Impressions: Service Date/Time: Sunday, March 26, 2017 21:49 - CONCLUSION: Normal examination. Denton Parker Jr., MD Lower Extremity Ultrasound 03/26/17 0000 Signed Impressions: Service Date/Time: Sunday, March 26, 2017 21:28 - CONCLUSION: 1. No DVT. 2. Subcutaneous edema involving both calves. Denton Parker Jr., MD Chest X-Ray 03/21/17 0000 Signed Impressions: Service Date/Time: Tuesday, March 21, 2017 09:16 - CONCLUSION: Bibasilar opacities characteristic of pleural effusions with associated volume loss and/or consolidation. The perihilar interstitial opacities are suggestive of pulmonary edema. Reynaldo Higgins MD Renal Ultrasound 03/18/17 0000 Signed Impressions: Service Date/Time: Saturday, March 18, 2017 17:35 - CONCLUSION: 1. Echogenic kidneys bilaterally compatible with medical renal disease. 2. Small volume ascites Dimitrios Lopez MD Chest X-Ray 03/15/17 0600 Signed Impressions: Service Date/Time: Wednesday, March 15, 2017 04:56 - CONCLUSION: Worsening consolidation and effusion at the left lung base. Reynaldo Lazar MD Neck CTA 03/12/17 0000 Signed Impressions: Service Date/Time: Sunday, March 12, 2017 20:22 - CONCLUSION: Slight atherosclerosis of both carotid bifurcations without narrowing. Dominant left vertebral artery. Reynaldo Lazar MD Head CTA 03/12/17 0000 Signed Impressions: Service Date/Time: Sunday, March 12, 2017 20:22 - CONCLUSION: Normal intracranial arteries. Reynaldo Lazar MD Head CT 03/12/17 0000 Signed Impressions: Service Date/Time: Sunday, March 12, 2017 19:02 - CONCLUSION: Negative noncontrast head CT. Reynaldo Lazar MD PHYSICAL EXAMINATION GENERAL: Awake and alert. HEENT: No icterus. No conjunctival erythema. Oropharynx no thrush. NECK: Supple without adenopathy or swelling. No JVD. LUNGS: Clear breath sounds. HEART: Irregular S1S2. 2/6 blowing systolic ejection murmur at the left sternal border and also at the upper right sternal border. ABDOMEN: Bowel sounds present, soft, non tender. EXTREMITIES: No clubbing or cyanosis. 3+ pitting edema at the legs. trace edema at the humerus. Ecchymosis of the hands. No peripheral embolic lesions. NEUROLOGIC: Nonfocal. SKIN: No diffuse rash. PSYCHIATRIC: Calm, pleasant and cooperative. IMPRESSION 1. Bacteremia due to Viridans Strep. Blood cultures now negative. 2. Bioprosthetic aortic valve endocarditis. Given the presence of vegetation she is at risk of complications such as valve malfunction and emboli. 3. Sepsis. strep viridans group. 4. Altered mental status secondary to Sepsis. Resolved. 5. Leukocytosis. Improved. 6. Acute kidney disease. Appears to be improving. Probably related to aminoglycoside/dehydration. 7. Multiple antibiotic allergies. 8. Thrombocytopenia. Plans per hematology. Platelets improving. RECOMMENDATIONS 1. Continue Ceftriaxone IV as planned until April 25, 2017. 2. Discharge disposition per renal decision about renal failure and decision about long-term catheter placement. Arrangement to be made for follow up with ID outpatient Dr. Martinez. Edwin Harrison MD March 31, 2017 16:37
[2017-03-31] MEDS: ACETAMINOPHEN/HYDROcodone 325 MG/5 MG TAB PO PRN (21:29)
[2017-03-31] MEDS: POTASSIUM CHLORIDE 20 MEQ CONTROLLED RELEASE TAB PO SCH (21:29)
[2017-03-31] MEDS: ATORVASTATIN 10 MG TAB PO SCH (21:30)
[2017-03-31] MEDS: INSULIN DETEMIR 100 UNITS/ML VIAL SQ SCH (21:43)
[2017-04-01] VITALS (8 sets, daily range): BP systolic 111–157; BP diastolic 53–72; PULSE 52–95; RESP 18–20; TEMP 97.7–98.8; O2SAT 90–98
[2017-04-01] MEDS: CHLORHEXIDINE GLUCONATE 2 % 1 PACK (2 CLOTHS) TOP SCH (04:00)
[2017-04-01] MEDS: LEVOTHYROXINE SODIUM 75 MCG TAB PO SCH (05:37)
[2017-04-01] MEDS: INSULIN ASPART SUPPLEMENTAL SCALE SQ SCH ×4 (05:53→21:55)
[2017-04-01 07:38] LABS: AUTOMATED NEUTROPHIL # 9.5 TH/MM3 (1.8-7.7); BASOPHIL # 0.1 TH/MM3 (0-0.2); BASOPHIL % 0.8 % (0.0-2.0); EOSINOPHIL # 0.1 TH/MM3 (0-0.4); EOSINOPHIL % 0.9 % (0.0-4.0); HEMATOCRIT 28.6 % (35.0-46.0); LYMPHOCYTE # 0.9 TH/MM3 (1.0-4.8); MEAN CELL VOLUME 88.2 FL (80.0-100.0); MEAN CORPUSCULAR HEMOGLOBIN 29.7 PG (27.0-34.0); MEAN CORPUSCULAR HGB CONC 33.7 % (32.0-36.0); MONO % 5.4 % (0.0-8.0); NEUT % 84.9 % (16.0-70.0); PLATELET COUNT 60 TH/MM3 (150-450); RED BLOOD COUNT 3.24 MIL/MM3 (4.00-5.30); RED CELL DISTRIBUTION WIDTH 17.7 % (11.6-17.2); WHITE BLOOD COUNT 11.2 TH/MM3 (4.0-11.0)
[2017-04-01 07:46] LABS: BICARBONATE 31.3 MEQ/L (21.0-32.0); POTASSIUM 3.6 MEQ/L (3.5-5.1)
[2017-04-01 07:49] LABS: HEMO FLAGS AUTO DIFF
[2017-04-01] MEDS: SENNOSIDES 8.6 MG TAB PO SCH ×2 (08:31→21:00)
[2017-04-01] MEDS: PANTOPRAZOLE SOD 40 MG DELAYED RELEASE TAB PO SCH (08:32)
[2017-04-01] MEDS: POTASSIUM CHLORIDE 20 MEQ CONTROLLED RELEASE TAB PO SCH ×2 (08:32→21:46)
[2017-04-01] MEDS: SODIUM CHLORIDE 0.9% FLUSH 10 ML FLUSH IV FLUSH SCH ×2 (08:32→21:47)
[2017-04-01] MEDS: DILTIAZEM HCL 60 MG TAB PO SCH ×3 (08:32→17:00)
[2017-04-01] MEDS: MULTIVITAMIN TAB PO SCH (08:32)
[2017-04-01] MEDS: CALCIUM CARBONATE 1.25 GM (CA 500 MG) TAB PO SCH ×3 (08:32→17:00)
[2017-04-01] MEDS: SODIUM CHLORIDE 0.9% FLUSH 10 ML FLUSH IVF SCH (08:32)
[2017-04-01] MEDS: BUMETANIDE INJ 1 MG/4 ML VIAL IV PUSH SCH ×2 (08:32→17:00)
[2017-04-01] MEDS: DOCUSATE SODIUM 100 MG CAP PO SCH ×2 (08:32→21:00)
[2017-04-01 08:35] LABS: PLATELET ESTIMATE SMEAR LOW (NORMAL); PLATELET MORPHOLOGY NORMAL (NORMAL); SCAN/DIFF AUTO DIFF CONFIRMED
--- NOTE | 2017-04-01 10:51 | HHI.PR ---
Subjective Remarks Follow up infective endocarditis/Renal failure 03/25/17-patient seen and examined; alert and oriented x 3; afebrile. NO acute event overnight 03/26/17-patient seen and examined, denies any chest pain or shortness of breath. Currently afebrile. Family by the bedside. 03/27/17-patient seen and examined; Doppler negative for DVT and patient denies any chest pain or shortness of breath. Thrombocytopenia worsening however patient denies any easy bruising. Cr improving. 03/28/17-patient seen and examined, she had hemodialysis yesterday. Platelet up to 27 today. BMP pending 03/29/17-patient seen and examined. Had HD today; no SOB 03/30/17-patient seen and examined, states she's having semi-loose BM, no other issues 03/31/17patient seen and examined, complaints of sore throat but denies any chills or cough. Renal indices improving 04/01/17-patient seen and examined, creatinine slightly improving. Positive for loose stool and denies any sore throat today. Objective Vitals Vital Signs Date Time Temp Pulse Resp B/P Pulse Ox O2 Delivery O2 Flow Rate FiO2 04/01/17 10:15 Room Air 21 04/01/17 08:00 97.9 95 20 157/72 95 04/01/17 04:00 98.0 78 18 121/58 96 04/01/17 01:05 Room Air 04/01/17 00:19 98.8 70 18 111/53 96 03/31/17 21:22 94 21 03/31/17 20:35 73 03/31/17 20:33 97.6 74 18 112/69 98 03/31/17 12:00 98.1 77 20 137/63 91 I/O 03/31/17 03/31/17 03/31/17 04/01/17 04/01/17 04/01/17 07:00 15:00 23:00 07:00 15:00 23:00 Intake Total 472 ml 40 ml 36 ml Output Total 600 ml 100 ml Balance -128 ml -60 ml 36 ml Intake Oral 240 ml IV Total 232 ml 40 ml 36 ml Output Urine Total 600 ml 100 ml # Voids 2 # Bowel Movements 1 0 1 Result Diagram: 04/01/1762904/01/17629 Objective Remarks GENERAL: NAD SKIN: Warm and dry. HEAD: Normocephalic. EYES: No scleral icterus. No injection or drainage. NECK: Supple, trachea midline. No JVD or lymphadenopathy. CARDIOVASCULAR: Regular rate and rhythm with murmurs II/ BRENDA RESPIRATORY: Breath sounds equal bilaterally. No accessory muscle use. GASTROINTESTINAL: Abdomen soft, non-tender, nondistended. MUSCULOSKELETAL: No cyanosis, or edema. Multiple petechiae to bilateral lower extremities BACK: Nontender without obvious deformity. No CVA tenderness. 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 Slight uptake cr Plan for HD today 04/01/17 A-fib with RVR Controlled on a Diltiazem PO Off Heparin Drip secondary to HIT Cardiology ff Anemia H&H stable and continue to monitor CBC Hyperlipidemia Statin Biliary Cirrhosis, state IV Spironolactone continued Lasix and Mckenna continued DM2 SSI Long acting insulins Diabetic Diet Hypothyroidism Continue supplementation GERD Hiatal Hernia Continue PPI Heparin induced Thrombocytopenia + CHAPO Currently on Argatroban and platelet count improving Bridge to Coumadin when platelet count>[id number] Appreciate input from hematology Hypokalemia Resolved Sore throat Resolved and continue with Lozenge PRN Diarrhea Rule out C. difficile with C. difficile PCR and treat accordingly DVT Prophylaxis Aubrey Cagle MD April 01, 2017 10:51
[2017-04-01] MEDS: URSODIOL PO SCH ×2 (12:30→21:47)
[2017-04-01] MEDS: cefTRIAXone INJ 2,000 MG in SODIUM CHLORIDE 0.9% INJ 100 ML IV SCH (12:48)
--- NOTE | 2017-04-01 13:12 | HHI.NPPN ---
Subjective History of Present Illness 76 Year old W Female with ARF, Biliary Cirrhosis, streptococcus Viridans sepsis Additional Remarks Patient is alert, no SOB, started eating better. Review of Systems General Constitutional: Fatigue Objective Data Data 03/31/17 04/01/17 19:00 07:00 Intake Total 472 ml 76 ml Output Total 600 ml 100 ml Balance -128 ml -24 ml Intake Oral 240 ml IV Total 232 ml 76 ml Output Urine Total 600 ml 100 ml # Voids 2 # Bowel Movements 1 1 Vital Signs Date Time Temp Pulse Resp B/P Pulse Ox O2 Delivery O2 Flow Rate FiO2 04/01/17 10:15 Room Air 21 04/01/17 08:00 97.9 95 20 157/72 95 04/01/17 04:00 98.0 78 18 121/58 96 04/01/17 01:05 Room Air 04/01/17 00:19 98.8 70 18 111/53 96 03/31/17 21:22 94 21 03/31/17 20:35 73 03/31/17 20:33 97.6 74 18 112/69 98 -: 04/01/17 0630 04/01/17 0630 Physical Exam General Appearance: No Acute Distress, Comfortable, Anxious Neck Neck Exam: Neck Supple Pulmonary Resp Exam: Breath Sounds Equal, No Distress, Rhonchi, Decreased Bases Cardiology CV Exam: Irregular Gastrointestinal/Abdomen GI Exam: Soft, Non-Tender, Bowel Sounds Present Extremeties Extremities Exam: Moderate Edema Neurologic Neuro Exam: Alert, Awake, Oriented Psychiatric Psych Exam: Appropriate Responses Assessment/Plan Problem List: (1) Acute renal failure Plan: This is ARF Creatinine improved off dialysis. Non oliguric, on Bumex. ? UOP Add Aldactone 25 mg daily K replaced follow BMP Cr 2.2 stable holding GFR 22 HIT pos (2) Streptococcal bacteremia Plan: Infectious disease is following she is on broad-spectrum antibiotic ceftriaxone (3) Atrial flutter with rapid ventricular response Plan: Off diltiazem (4) Biliary liver cirrhosis Plan: Follows with GI (5) Thrombocytopenia Plan: HIT positive Hematology fu Argatroban Problem Qualifiers (1) Acute renal failure: Qualified Code: N17.9 - Acute renal failure, unspecified acute renal failure type Molly Peng MD April 01, 2017 13:12
[2017-04-01] MEDS: SPIRONOLACTONE 25 MG TAB PO SCH (15:08)
--- NOTE | 2017-04-01 16:13 | HHI.FF ---
Face to Face Verification Diagnosis: (1) HIT (heparin-induced thrombocytopenia) (2) Prosthetic valve endocarditis Physical Therapy Order: Evaluate and Treat Home Health Nursing Order: IV medication administration I have seen patient Julia Jerome on 04/01/17. My clinical findings support the need for the requested home health care services because: Deconditioned w/ increased weakness Injectable med education/admin I certify that my clinical findings support that this patient is homebound because: Poor cardiac reserve Aubrey Snyder MD April 01, 2017 16:13
[2017-04-01] MEDS: ACETAMINOPHEN 325 MG TAB PO PRN (16:48)
--- NOTE | 2017-04-01 16:59 | PD.ONC.PN ---
Subjective Subjective Remarks Afebrile overnight. Pt resting in chair at bedside in no distress. She is getting overwhelmed with being in the hospital for so long. No bleeding. Happy her platelets are improving. Objective Data Date Time Temp Pulse Resp B/P Pulse Ox O2 Delivery O2 Flow Rate FiO2 04/01/17 12:00 97.7 75 20 118/59 95 04/01/17 10:15 Room Air 21 04/01/17 08:05 98 21 04/01/17 08:00 97.9 95 20 157/72 95 04/01/17 04:00 98.0 78 18 121/58 96 04/01/17 01:05 Room Air 04/01/17 00:19 98.8 70 18 111/53 96 03/31/17 21:22 94 21 03/31/17 20:35 73 03/31/17 20:33 97.6 74 18 112/69 98 04/01/17 04/01/17 04/01/17 07:00 15:00 23:00 Intake Total 36 ml Balance 36 ml Result Diagram: 04/01/1730 04/01/17 0630 Laboratory Results Laboratory Tests Test 04/01/17 06:30 White Blood Count 11.2 TH/MM3 Red Blood Count 3.24 MIL/MM3 Hemoglobin 9.6 GM/DL Hematocrit 28.6 % Mean Corpuscular Volume 88.2 FL Mean Corpuscular Hemoglobin 29.7 PG Mean Corpuscular Hemoglobin 33.7 % Concent Red Cell Distribution Width 17.7 % Platelet Count 60 TH/MM3 Mean Platelet Volume 8.3 FL Neutrophils (%) (Auto) 84.9 % Lymphocytes (%) (Auto) 8.0 % Monocytes (%) (Auto) 5.4 % Eosinophils (%) (Auto) 0.9 % Basophils (%) (Auto) 0.8 % Neutrophils # (Auto) 9.5 TH/MM3 Lymphocytes # (Auto) 0.9 TH/MM3 Monocytes # (Auto) 0.6 TH/MM3 Eosinophils # (Auto) 0.1 TH/MM3 Basophils # (Auto) 0.1 TH/MM3 CBC Comment AUTO DIFF Differential Comment AUTO DIFF CONFIRMED Platelet Estimate LOW Platelet Morphology Comment NORMAL Activated Partial 76.0 SEC Thromboplast Time Sodium Level 133 MEQ/L Potassium Level 3.6 MEQ/L Chloride Level 94 MEQ/L Carbon Dioxide Level 31.3 MEQ/L Anion Gap 8 MEQ/L Blood Urea Nitrogen 19 MG/DL Creatinine 2.22 MG/DL Estimat Glomerular Filtration 22 ML/MIN Rate Random Glucose 109 MG/DL Calcium Level 7.9 MG/DL Administered Medications Medications (Trade) Dose Ordered Sig/Tunde Route PRN Reason Start Time Stop Time Status Last Admin Dose Admin Atorvastatin Calcium (Lipitor) 10 mg HS PO 03/12/17 21:00 03/31/17 21:30 Levothyroxine Sodium (Synthroid) 75 mcg DAILY@06 PO 03/14/17 06:00 04/01/17 05:37 Sodium Chloride (NS Flush) DAILY IVF 03/13/17 09:00 04/01/17 08:32 Sodium Chloride (NS Flush) UNSCH PRN IVF SEE PROTOCOL 03/13/17 08:00 03/14/17 09:13 Sodium Chloride (NS Flush) 2 ml UNSCH PRN IV FLUSH FLUSH AFTER USING IV ACCESS 03/13/17 08:30 03/14/17 09:13 Sodium Chloride (NS Flush) 2 ml BID IV FLUSH 03/13/17 09:00 04/01/17 08:32 Acetaminophen (Tylenol) 650 mg Q6H PRN PO PAIN 1-2 AND/OR FEVER >101F 03/13/17 08:30 03/30/17 10:23 Acetaminophen/ Hydrocodone Bitart ([place] 5-325 Mg) 1 tab Q4H PRN PO PAIN SCALE 3 TO 5 03/13/17 08:30 03/31/17 21:29 Ondansetron HCl (Zofran Inj) 4 mg Q6H PRN IV NAUSEA OR VOMITING 03/13/17 08:30 03/26/17 08:50 Docusate Sodium (Colace) 100 mg BID PO 03/13/17 09:00 04/01/17 08:32 Miscellaneous Information 1 Q361D XX 03/13/17 08:30 03/14/17 09:14 Chlorhexidine Gluconate (Chlorhexidine 2% Cloth) Taper DAILY@04 TOP 03/14/17 04:00 03/10/18 03:59 03/19/17 00:04 Multivitamins 1 tab 1 tab DAILY PO 03/13/17 11:30 04/01/17 08:32 Ceftriaxone Sodium/Sodium Chloride (Rocephin Inj/NS Inj) 100 ml @ 200 mls/hr Q24H IV 03/14/17 13:00 04/01/17 12:48 Sennosides (Senokot) 17.2 mg Q12H PO 03/14/17 21:00 04/01/17 08:31 Patient Own Medication PT OWN MED: Ursod... BID PO 03/15/17 13:00 04/01/17 12:30 Diltiazem HCl (Cardizem) 60 mg TID PO 03/19/17 18:00 04/01/17 12:48 Calcium Carbonate (Oscal) 1,000 mg TID PO 03/20/17 09:00 04/01/17 12:48 Bumetanide 1 mg 1 mg BID@18 IV PUSH 03/20/17 18:00 04/01/17 08:32 Sodium Chloride (NS 1000 ml Inj) 1,000 ml @ 200 mls/hr Q5H PRN IV WITH DIALYSIS 03/21/17 11:22 03/27/17 12:24 Heparin Sodium (Porcine) (Heparin Inj) UNSCH PRN .XX WITH DIALYSIS 03/21/17 11:30 03/27/17 12:25 Gentamicin Sulfate (Gentamicin (Dialysis) Inj) 20 mg UNSCH PRN IV WITH DIALYSIS 03/21/17 11:30 03/29/17 12:15 Epoetin Derrell (Epogen Inj) 4,000 units UNSCH PRN IV WITH DIALYSIS 03/21/17 11:30 03/29/17 12:15 Insulin Detemir (Levemir Inj) 10 units HS SQ 03/24/17 21:00 03/31/17 21:43 Pantoprazole Sodium (Protonix) 40 mg DAILY PO 03/24/17 11:00 04/01/17 08:32 Calcium Carbonate 500 mg 500 mg Q8HR PRN CHEW HEARTBURN 03/24/17 11:00 03/24/17 11:01 Argatroban/Sodium Chloride (Novastan Inj/NS 250 ml Inj) 250 ml @ 0 mls/hr TITRATE IV 03/30/17 19:45 03/31/17 15:11 Potassium Chloride (KCl) 20 meq Q12HR PO 03/31/17 21:00 04/01/17 08:32 Spironolactone (Aldactone) 25 mg DAILY PO 04/01/17 13:30 04/01/17 15:08 Objective Remarks GENERAL: Older female, sitting up in chair at bedside in no distress. SKIN: Warm and dry. Multiple bruises. HEAD: Normocephalic. EYES: No injection or drainage. NECK: Supple, trachea midline. No JVD or lymphadenopathy. CARDIOVASCULAR: Regular rate and rhythm without murmurs. RESPIRATORY: Breath sounds equal bilaterally. No accessory muscle use. GASTROINTESTINAL: Abdomen soft, non-tender, nondistended. EXTREMITIES: No cyanosis. BLE with 2-3+ edema. NEUROLOGICAL: No obvious focal deficit. Awake, alert, and oriented x3. Assessment/Plan Problem List: (1) Thrombocytopenia Status: Chronic Plan: -- +chronic thrombocytopenia for some time -- HIT positive -- Possibility of acquired von Willebrand deficiency from the prosthetic aortic valve -- Monitor Coags while on Argatroban Hx/Workup: Mrs. Jerome is a 76-year-old woman who presented with generalized weakness on 03/11/2017. She has a history of thrombocytopenia reported by the patient and her during her cataract surgery. Her platelet count on admission was 148,000. It continued to trend down. She is noted to have started heparin on 03/14 as well as March 17. She had gradual decrease of platelet count temporarily related to starting heparin protocol. Assessment 76 y/o female with thrombocytopenia. 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 No bleeding. 2. Platelets improved. 3. Monitor CBC Attending Statement Agree with above. Cont with plan goal INR 2-3. Monitor platelet count. ATivan prn anxiety. Caitlin Das April 01, 2017 16:59 Mojgan Mcginnis MD April 01, 2017 23:46
[2017-04-01 17:48] LABS: APTT (PATIENT) 63.7 SEC (24.3-30.1)
[2017-04-01] MEDS: INSULIN DETEMIR 100 UNITS/ML VIAL SQ SCH (21:00)
[2017-04-01] MEDS: ATORVASTATIN 10 MG TAB PO SCH (21:45)
[2017-04-01] MEDS: ACETAMINOPHEN/HYDROcodone 325 MG/5 MG TAB PO PRN (22:02)
[2017-04-02] VITALS (9 sets, daily range): BP systolic 110–143; BP diastolic 56–68; PULSE 60–89; RESP 16–20; TEMP 97.8–98.1; O2SAT 96–98
[2017-04-02] MEDS: LORazepam 0.5 MG TAB PO PRN ×2 (01:36→21:52)
[2017-04-02] MEDS: CHLORHEXIDINE GLUCONATE 2 % 1 PACK (2 CLOTHS) TOP SCH (04:00)
[2017-04-02] MEDS: LEVOTHYROXINE SODIUM 75 MCG TAB PO SCH (06:42)
[2017-04-02] MEDS: INSULIN ASPART SUPPLEMENTAL SCALE SQ SCH ×4 (06:43→22:09)
[2017-04-02 07:08] LABS: APTT (PATIENT) 60.2 SEC (24.3-30.1); BICARBONATE 31.1 MEQ/L (21.0-32.0); POTASSIUM 3.7 MEQ/L (3.5-5.1)
[2017-04-02] MEDS: SODIUM CHLORIDE 0.9% FLUSH 10 ML FLUSH IV FLUSH SCH ×2 (08:25→21:52)
[2017-04-02] MEDS: DOCUSATE SODIUM 100 MG CAP PO SCH ×2 (08:25→21:00)
[2017-04-02] MEDS: PANTOPRAZOLE SOD 40 MG DELAYED RELEASE TAB PO SCH (08:25)
[2017-04-02] MEDS: MULTIVITAMIN TAB PO SCH (08:25)
[2017-04-02] MEDS: CALCIUM CARBONATE 1.25 GM (CA 500 MG) TAB PO SCH ×3 (08:25→17:11)
[2017-04-02] MEDS: DILTIAZEM HCL 60 MG TAB PO SCH ×3 (08:25→17:11)
[2017-04-02] MEDS: SPIRONOLACTONE 25 MG TAB PO SCH (08:25)
[2017-04-02] MEDS: SENNOSIDES 8.6 MG TAB PO SCH ×2 (08:25→21:00)
[2017-04-02] MEDS: POTASSIUM CHLORIDE 20 MEQ CONTROLLED RELEASE TAB PO SCH ×2 (08:25→21:49)
[2017-04-02] MEDS: SODIUM CHLORIDE 0.9% FLUSH 10 ML FLUSH IVF SCH (08:26)
[2017-04-02] MEDS: URSODIOL PO SCH ×2 (08:26→21:48)
[2017-04-02] MEDS: BUMETANIDE INJ 1 MG/4 ML VIAL IV PUSH SCH ×2 (08:26→17:11)
[2017-04-02 12:13] LABS: C. DIFF EPI 027 PRESUMPTIVE NEGATIVE (NEGATIVE); C. DIFF TOXIN PCR NEGATIVE (NEGATIVE)
[2017-04-02] MEDS: cefTRIAXone INJ 2,000 MG in SODIUM CHLORIDE 0.9% INJ 100 ML IV SCH (12:32)
--- NOTE | 2017-04-02 12:40 | HHI.NPPN ---
Subjective History of Present Illness 76 Year old W Female with ARF, Biliary Cirrhosis, streptococcus Viridans sepsis Additional Remarks Patient is alert, no SOB, started eating better. Review of Systems General Constitutional: Fatigue Objective Data Data 04/01/17 04/02/17 19:00 07:00 Intake Total 1200 ml 352 ml Output Total 700 ml 500 ml Balance 500 ml -148 ml Intake Oral 1200 ml 240 ml IV Total 112 ml Output Urine Total 700 ml 500 ml # Voids 1 # Bowel Movements 3 2 Vital Signs Date Time Temp Pulse Resp B/P Pulse Ox O2 Delivery O2 Flow Rate FiO2 04/02/17 09:42 Room Air 21 04/02/17 08:00 98.1 83 20 134/68 96 04/02/17 04:00 98.0 65 18 143/63 96 04/02/17 00:00 97.8 89 16 124/58 97 04/01/17 20:00 97.8 52 18 127/60 95 04/01/17 19:00 Room Air 04/01/17 17:52 95 21 04/01/17 16:00 97.8 75 20 119/58 90 -: 04/01/17 0630 04/02/17 0600 Physical Exam General Appearance: No Acute Distress, Comfortable, Anxious Neck Neck Exam: Neck Supple Pulmonary Resp Exam: Breath Sounds Equal, No Distress, Rhonchi, Decreased Bases Cardiology CV Exam: Irregular Gastrointestinal/Abdomen GI Exam: Soft, Non-Tender, Bowel Sounds Present Extremeties Extremities Exam: Moderate Edema Neurologic Neuro Exam: Alert, Awake, Oriented Psychiatric Psych Exam: Appropriate Responses Assessment/Plan Problem List: (1) Acute renal failure Plan: This is ARF Creatinine still higher edema not better Non oliguric, on Bumex. 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
--- NOTE | 2017-04-02 14:10 | HHI.PR ---
Subjective Remarks Follow up infective endocarditis/Renal failure 03/25/17-patient seen and examined; alert and oriented x 3; afebrile. NO acute event overnight 03/26/17-patient seen and examined, denies any chest pain or shortness of breath. Currently afebrile. Family by the bedside. 03/27/17-patient seen and examined; Doppler negative for DVT and patient denies any chest pain or shortness of breath. Thrombocytopenia worsening however patient denies any easy bruising. Cr improving. 03/28/17-patient seen and examined, she had hemodialysis yesterday. Platelet up to 27 today. BMP pending 03/29/17-patient seen and examined. Had HD today; no SOB 03/30/17-patient seen and examined, states she's having semi-loose BM, no other issues 03/31/17patient seen and examined, complaints of sore throat but denies any chills or cough. Renal indices improving 04/01/17-patient seen and examined, creatinine slightly improving. Positive for loose stool and denies any sore throat today. 04/02/17-patient seen and examined; NO Shortness of breath however she fill puffy around the waist. Objective Vitals Vital Signs Date Time Temp Pulse Resp B/P Pulse Ox O2 Delivery O2 Flow Rate FiO2 04/02/17 13:00 98 04/02/17 12:00 97.8 85 20 125/62 98 04/02/17 09:42 Room Air 21 04/02/17 08:00 98.1 83 20 134/68 96 04/02/17 04:00 98.0 65 18 143/63 96 04/02/17 00:00 97.8 89 16 124/58 97 04/01/17 20:00 97.8 52 18 127/60 95 04/01/17 19:00 Room Air 04/01/17 17:52 95 21 04/01/17 16:00 97.8 75 20 119/58 90 I/O 04/01/17 04/01/17 04/01/17 04/02/17 04/02/17 04/02/17 07:00 15:00 23:00 07:00 15:00 23:00 Intake Total 36 ml 1200 ml 352 ml 0 ml Output Total 700 ml 200 ml 300 ml Balance 36 ml 500 ml 152 ml -300 ml Intake Oral 1200 ml 240 ml 0 ml IV Total 36 ml 112 ml Output Urine Total 700 ml 200 ml 300 ml # Voids 2 1 # Bowel Movements 1 3 1 1 Result Diagram: 04/01/17 0630 04/02/17 0600 Objective Remarks GENERAL: NAD SKIN: Warm and dry. HEAD: Normocephalic. EYES: No scleral icterus. No injection or drainage. NECK: Supple, trachea midline. No JVD or lymphadenopathy. CARDIOVASCULAR: Regular rate and rhythm with murmurs II/ BRENDA RESPIRATORY: Breath sounds equal bilaterally. No accessory muscle use. GASTROINTESTINAL: Abdomen soft, non-tender, nondistended. MUSCULOSKELETAL: No cyanosis; +1 edema BLE. BACK: Nontender without obvious deformity. No CVA tenderness. 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 Worsening of cr Plan HD 04/02/17 A-fib with RVR Controlled on a Diltiazem PO Off Heparin Drip secondary to HIT Cardiology ff Anemia H&H stable and continue to monitor CBC Hyperlipidemia Statin Biliary Cirrhosis, state IV Spironolactone continued Lasix and Mckenna continued DM2 SSI Long acting insulins Diabetic Diet Hypothyroidism Continue supplementation GERD Hiatal Hernia Continue PPI Heparin induced Thrombocytopenia + CHAPO Currently on Argatroban and platelet count improving Bridge to Coumadin when platelet count>[id number] Appreciate input from hematology Hypokalemia Resolved Sore throat Resolved and continue with Lozenge PRN Diarrhea Rule out C. difficile with C. difficile PCR and treat accordingly DVT Prophylaxis SCDs Aubrey Snyder MD April 02, 2017 14:10
--- NOTE | 2017-04-02 15:05 | PD.ONC.PN ---
Subjective Subjective Remarks Afebrile overnight. Pt sitting up in chair at bedside talking with visitor. She currently has no complaints. She tells me she is getting dialysis tomorrow. Objective Data Date Time Temp Pulse Resp B/P Pulse Ox O2 Delivery O2 Flow Rate FiO2 04/02/17 13:00 98 04/02/17 12:00 97.8 85 20 125/62 98 04/02/17 09:42 Room Air 21 04/02/17 08:00 98.1 83 20 134/68 96 04/02/17 04:00 98.0 65 18 143/63 96 04/02/17 00:00 97.8 89 16 124/58 97 04/01/17 20:00 97.8 52 18 127/60 95 04/01/17 19:00 Room Air 04/01/17 17:52 95 21 04/01/17 16:00 97.8 75 20 119/58 90 04/02/17 04/02/17 04/02/17 07:00 15:00 23:00 Intake Total 0 ml Output Total 300 ml Balance -300 ml Result Diagram: 04/01/17 0630 04/02/17 0600 Laboratory Results Laboratory Tests Test 04/01/17 04/02/17 04/02/17 16:56 06:00 11:10 Activated Partial 63.7 SEC 60.2 SEC Thromboplast Time Sodium Level 133 MEQ/L Potassium Level 3.7 MEQ/L Chloride Level 93 MEQ/L Carbon Dioxide Level 31.1 MEQ/L Anion Gap 9 MEQ/L Blood Urea Nitrogen 23 MG/DL Creatinine 2.36 MG/DL Estimat Glomerular Filtration 20 ML/MIN Rate Random Glucose 88 MG/DL Calcium Level 7.9 MG/DL Phosphorus Level 2.6 MG/DL Stool C. difficile Toxin (PCR) NEGATIVE Stl C. difficile Toxin PRESUMPTIVE Epiderm 027 NEGATIVE Administered Medications Medications (Trade) Dose Ordered Sig/Tunde Route PRN Reason Start Time Stop Time Status Last Admin Dose Admin Atorvastatin Calcium (Lipitor) 10 mg HS PO 03/12/17 21:00 04/01/17 21:45 Levothyroxine Sodium (Synthroid) 75 mcg DAILY@06 PO 03/14/17 06:00 04/02/17 06:42 Sodium Chloride (NS Flush) DAILY IVF 03/13/17 09:00 04/01/17 08:32 Sodium Chloride (NS Flush) UNSCH PRN IVF SEE PROTOCOL 03/13/17 08:00 03/14/17 09:13 Sodium Chloride (NS Flush) 2 ml UNSCH PRN IV FLUSH FLUSH AFTER USING IV ACCESS 03/13/17 08:30 03/14/17 09:13 Sodium Chloride (NS Flush) 2 ml BID IV FLUSH 03/13/17 09:00 04/02/17 08:25 Acetaminophen (Tylenol) 650 mg Q6H PRN PO PAIN 1-2 AND/OR FEVER >101F 03/13/17 08:30 04/01/17 16:48 Acetaminophen/ Hydrocodone Bitart ([place] 5-325 Mg) 1 tab Q4H PRN PO PAIN SCALE 3 TO 5 03/13/17 08:30 04/01/17 22:02 Ondansetron HCl (Zofran Inj) 4 mg Q6H PRN IV NAUSEA OR VOMITING 03/13/17 08:30 03/26/17 08:50 Docusate Sodium (Colace) 100 mg BID PO 03/13/17 09:00 04/02/17 08:25 Miscellaneous Information 1 Q361D XX 03/13/17 08:30 03/14/17 09:14 Chlorhexidine Gluconate (Chlorhexidine 2% Cloth) 3 pack Taper DAILY@04 TOP 03/14/17 04:00 03/10/18 03:59 04/02/17 04:00 Multivitamins 1 tab 1 tab DAILY PO 03/13/17 11:30 04/02/17 08:25 Ceftriaxone Sodium/Sodium Chloride (Rocephin Inj/NS Inj) 100 ml @ 200 mls/hr Q24H IV 03/14/17 13:00 04/02/17 12:32 Sennosides (Senokot) 17.2 mg Q12H PO 03/14/17 21:00 04/02/17 08:25 Patient Own Medication PT OWN MED: Ursod... BID PO 03/15/17 13:00 04/02/17 08:26 Diltiazem HCl (Cardizem) 60 mg TID PO 03/19/17 18:00 04/02/17 12:31 Calcium Carbonate (Oscal) 1,000 mg TID PO 03/20/17 09:00 04/02/17 12:31 Bumetanide 1 mg 1 mg BID@09,18 IV PUSH 03/20/17 18:00 04/02/17 08:26 Sodium Chloride (NS 1000 ml Inj) 1,000 ml @ 200 mls/hr Q5H PRN IV WITH DIALYSIS 03/21/17 11:22 03/27/17 12:24 Heparin Sodium (Porcine) (Heparin Inj) UNSCH PRN .XX WITH DIALYSIS 03/21/17 11:30 03/27/17 12:25 Gentamicin Sulfate (Gentamicin (Dialysis) Inj) 20 mg UNSCH PRN IV WITH DIALYSIS 03/21/17 11:30 03/29/17 12:15 Epoetin Derrell (Epogen Inj) 4,000 units UNSCH PRN IV WITH DIALYSIS 03/21/17 11:30 03/29/17 12:15 Insulin Detemir (Levemir Inj) 10 units HS SQ 03/24/17 21:00 04/01/17 21:00 Pantoprazole Sodium (Protonix) 40 mg DAILY PO 03/24/17 11:00 04/02/17 08:25 Calcium Carbonate 500 mg 500 mg Q8HR PRN CHEW HEARTBURN 03/24/17 11:00 03/24/17 11:01 Argatroban/Sodium Chloride (Novastan Inj/NS 250 ml Inj) 250 ml @ 0 mls/hr TITRATE IV 03/30/17 19:45 03/31/17 15:11 Potassium Chloride (KCl) 20 meq Q12HR PO 03/31/17 21:00 04/02/17 08:25 Spironolactone (Aldactone) 25 mg DAILY PO 04/01/17 13:30 04/02/17 08:25 Lorazepam (Ativan) 0.5 mg Q6H PRN PO anxiety 04/02/17 00:00 04/02/17 01:36 Objective Remarks GENERAL: Older female, sitting up in chair at bedside in no distress. SKIN: Warm and dry. Multiple bruises. HEAD: Normocephalic. EYES: No injection or drainage. NECK: Supple, trachea midline. No JVD or lymphadenopathy. CARDIOVASCULAR: Regular rate and rhythm without murmurs. RESPIRATORY: Breath sounds equal bilaterally. No accessory muscle use. GASTROINTESTINAL: Abdomen soft, non-tender, nondistended. EXTREMITIES: No cyanosis. BLE with 2-3+ edema. NEUROLOGICAL: No obvious focal deficit. Awake, alert, and oriented x3. Assessment/Plan Problem List: (1) Thrombocytopenia Status: Chronic Plan: -- +chronic thrombocytopenia for some time -- HIT positive -- Possibility of acquired von Willebrand deficiency from the prosthetic aortic valve -- Monitor Coags while on Argatroban Hx/Workup: Mrs. Jerome is a 76-year-old woman who presented with generalized weakness on 03/11/2017. She has a history of thrombocytopenia reported by the patient and her during her cataract surgery. Her platelet count on admission was 148,000. It continued to trend down. She is noted to have started heparin on 03/14 as well as March 17. She had gradual decrease of platelet count temporarily related to starting heparin protocol. Assessment 76 y/o female with thrombocytopenia. 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 Platelets again improved today. If current trend continues, we can start coumadin tomorrow. 2. Continue prn ativan. Pt states this helping with anxiety associated with prolonged hospitalization. 3. CBC in am. Attending Statement The exam, history, and the medical decision-making described in the above note were completed with the assistance of the mid-level provider. I reviewed and agree with the findings presented. I attest that I had a [id number] encounter with the patient on the same day, and personally performed and documented my assessment and findings in the medical record. Pt seen and examined. Anxiety better with Ativan. Thrombocytopenia persist but platelet count better. Anticipate starting on Coumadin tomorrow. Bridge to therapeutic INR. Caitlin Das April 02, 2017 15:05 Mojgan Mcginnis MD April 02, 2017 21:04
[2017-04-02 16:14] LABS: HEMATOCRIT 30.7 % (35.0-46.0); MEAN CELL VOLUME 88.2 FL (80.0-100.0); MEAN CORPUSCULAR HEMOGLOBIN 29.1 PG (27.0-34.0); PLATELET COUNT 81 TH/MM3 (150-450); RED BLOOD COUNT 3.48 MIL/MM3 (4.00-5.30); RED CELL DISTRIBUTION WIDTH 18.7 % (11.6-17.2); WHITE BLOOD COUNT 12.1 TH/MM3 (4.0-11.0)
[2017-04-02 16:18] LABS: REVIEW FLAG FINAL
[2017-04-02] MEDS: ACETAMINOPHEN/HYDROcodone 325 MG/5 MG TAB PO PRN (18:40)
[2017-04-02] MEDS: ATORVASTATIN 10 MG TAB PO SCH (21:50)
[2017-04-02] MEDS: INSULIN DETEMIR 100 UNITS/ML VIAL SQ SCH (22:07)
[2017-04-03] VITALS (8 sets, daily range): BP systolic 114–135; BP diastolic 56–63; PULSE 61–120; RESP 18–20; TEMP 98–98.4; O2SAT 93–98
[2017-04-03] MEDS: ARGATROBAN IV SCH (01:37)
[2017-04-03] MEDS: SODIUM CHLOR 0.9% IV SCH (01:37)
[2017-04-03] MEDS: CHLORHEXIDINE GLUCONATE 2 % 1 PACK (2 CLOTHS) TOP SCH (04:00)
[2017-04-03] MEDS: LEVOTHYROXINE SODIUM 75 MCG TAB PO SCH (06:15)
[2017-04-03] MEDS: INSULIN ASPART SUPPLEMENTAL SCALE SQ SCH ×4 (06:18→21:16)
[2017-04-03 08:38] LABS: INTERNATIONAL NORMALIZED RATIO 3.3 RATIO; PROTHROMBIN TIME - PATIENT 38.2 SEC (9.8-11.6)
[2017-04-03 08:43] LABS: AUTOMATED NEUTROPHIL # 9.4 TH/MM3 (1.8-7.7); BASOPHIL % 0.4 % (0.0-2.0); EOSINOPHIL # 0.1 TH/MM3 (0-0.4); HEMATOCRIT 29.4 % (35.0-46.0); LYMPH % 6.5 % (9.0-44.0); LYMPHOCYTE # 0.7 TH/MM3 (1.0-4.8); MEAN CELL VOLUME 87.1 FL (80.0-100.0); MEAN CORPUSCULAR HEMOGLOBIN 29.2 PG (27.0-34.0); MEAN CORPUSCULAR HGB CONC 33.5 % (32.0-36.0); NEUT % 86.1 % (16.0-70.0); PLATELET COUNT 87 TH/MM3 (150-450); RED BLOOD COUNT 3.37 MIL/MM3 (4.00-5.30); RED CELL DISTRIBUTION WIDTH 17.9 % (11.6-17.2); WHITE BLOOD COUNT 10.9 TH/MM3 (4.0-11.0)
[2017-04-03 08:48] LABS: HEMO FLAGS AUTO DIFF
[2017-04-03] MEDS: DOCUSATE SODIUM 100 MG CAP PO SCH ×2 (09:00→21:00)
[2017-04-03] MEDS: DILTIAZEM HCL 60 MG TAB PO SCH ×3 (09:00→17:50)
[2017-04-03] MEDS: CALCIUM CARBONATE 1.25 GM (CA 500 MG) TAB PO SCH ×3 (09:00→17:50)
[2017-04-03] MEDS: SODIUM CHLORIDE 0.9% FLUSH 10 ML FLUSH IVF SCH (09:00)
[2017-04-03 09:58] LABS: SCAN/DIFF AUTO DIFF CONFIRMED
[2017-04-03 11:11] LABS: APTT (PATIENT) 62.2 SEC (24.3-30.1)
--- NOTE | 2017-04-03 11:12 | HHI.NPPN ---
Subjective History of Present Illness 76 Year old W Female with ARF, Biliary Cirrhosis, streptococcus Viridans sepsis Additional Remarks Patient is alert, no SOB, started eating better. Review of Systems General Constitutional: Fatigue Objective Data Data 04/02/17 04/03/17 19:00 07:00 Intake Total 600 ml 240 ml Output Total 400 ml Balance 200 ml 240 ml Intake Oral 600 ml 240 ml Output Urine Total 400 ml # Voids 2 # Bowel Movements 1 0 Vital Signs Date Time Temp Pulse Resp B/P Pulse Ox O2 Delivery O2 Flow Rate FiO2 04/03/17 08:00 98.2 84 18 129/57 98 04/03/17 07:53 Room Air 04/03/17 07:53 77 04/03/17 04:00 98.1 69 18 122/60 96 04/03/17 00:00 98.0 61 18 114/56 96 04/02/17 21:50 Room Air 04/02/17 20:20 71 04/02/17 20:00 97.9 69 18 110/58 97 04/02/17 18:17 98 21 04/02/17 16:00 97.9 60 20 119/56 96 04/02/17 13:00 98 04/02/17 12:00 97.8 85 20 125/62 98 -: 04/03/17 0819 04/02/17 0600 Physical Exam General Appearance: No Acute Distress, Comfortable, Anxious Neck Neck Exam: Neck Supple Pulmonary Resp Exam: Breath Sounds Equal, No Distress, Rhonchi, Decreased Bases Cardiology CV Exam: Irregular Gastrointestinal/Abdomen GI Exam: Soft, Non-Tender, Bowel Sounds Present Extremeties Extremities Exam: Moderate Edema Neurologic Neuro Exam: Alert, Awake, Oriented Psychiatric Psych Exam: Appropriate Responses Assessment/Plan Problem List: (1) Acute renal failure Plan: This is ARF Creatinine still higher edema not better Non oliguric, on Bumex. 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
[2017-04-03] MEDS: GENTAMICIN SULFATE (DIALYSIS USE ONLY) 20 MG/2 ML VIAL IV PRN (11:35)
[2017-04-03] MEDS: EPOETIN ALFA 10,000 UNITS/ML VIAL IV PRN (11:35)
--- NOTE | 2017-04-03 12:07 | HHI.PR ---
Subjective Remarks Follow up infective endocarditis/Renal failure 03/25/17-patient seen and examined; alert and oriented x 3; afebrile. NO acute event overnight 03/26/17-patient seen and examined, denies any chest pain or shortness of breath. Currently afebrile. Family by the bedside. 03/27/17-patient seen and examined; Doppler negative for DVT and patient denies any chest pain or shortness of breath. Thrombocytopenia worsening however patient denies any easy bruising. Cr improving. 03/28/17-patient seen and examined, she had hemodialysis yesterday. Platelet up to 27 today. BMP pending 03/29/17-patient seen and examined. Had HD today; no SOB 03/30/17-patient seen and examined, states she's having semi-loose BM, no other issues 03/31/17patient seen and examined, complaints of sore throat but denies any chills or cough. Renal indices improving 04/01/17-patient seen and examined, creatinine slightly improving. Positive for loose stool and denies any sore throat today. 04/02/17-patient seen and examined; NO Shortness of breath however she fill puffy around the waist. 04/03/17-patient seen and examined in dialysis center. Denies any shortness of breath. No acute event overnight. Platelet count up to 87,000 Objective Vitals Vital Signs Date Time Temp Pulse Resp B/P Pulse Ox O2 Delivery O2 Flow Rate FiO2 04/03/17 08:00 98.2 84 18 129/57 98 04/03/17 07:53 Room Air 04/03/17 07:53 77 04/03/17 04:00 98.1 69 18 122/60 96 04/03/17 00:00 98.0 61 18 114/56 96 04/02/17 21:50 Room Air 04/02/17 20:20 71 04/02/17 20:00 97.9 69 18 110/58 97 04/02/17 18:17 98 21 04/02/17 16:00 97.9 60 20 119/56 96 04/02/17 13:00 98 I/O 04/02/17 04/02/17 04/02/17 04/03/17 04/03/17 04/03/17 07:00 15:00 23:00 07:00 15:00 23:00 Intake Total 0 ml 600 ml 240 ml Output Total 300 ml 400 ml 3000 ml Balance -300 ml 200 ml 240 ml -3000 ml Intake Oral 0 ml 600 ml 240 ml Output Urine Total 300 ml 400 ml Hemodialysis 3000 ml # Voids 2 # Bowel Movements 1 1 0 Result Diagram: 04/03/17 0819 04/02/17 0600 Objective Remarks GENERAL: NAD and bucket hooker to HD machine SKIN: Warm and dry. HEAD: Normocephalic. EYES: No scleral icterus. No injection or drainage. NECK: Supple, trachea midline. No JVD or lymphadenopathy. CARDIOVASCULAR: Regular rate and rhythm with murmurs II/ BRENDA RESPIRATORY: Breath sounds equal bilaterally. No accessory muscle use. GASTROINTESTINAL: Abdomen soft, non-tender, nondistended. MUSCULOSKELETAL: No cyanosis; +1 edema BLE. BACK: Nontender without obvious deformity. No CVA tenderness. 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 Worsening of cr Plan HD 04/02/17 A-fib with RVR Controlled on a Diltiazem PO Off Heparin Drip secondary to HIT Cardiology ff Anemia H&H stable and continue to monitor CBC Hyperlipidemia Statin Biliary Cirrhosis, state IV Spironolactone continued Lasix and Mckenna continued DM2 SSI Long acting insulins Diabetic Diet Hypothyroidism Continue supplementation GERD Hiatal Hernia Continue PPI Heparin induced Thrombocytopenia + CHAPO Currently on Argatroban and platelet count improving and currently at 87,000 Bridge to Coumadin when platelet count>[id number] Appreciate input from hematology Hypokalemia Resolved Sore throat Resolved and continue with Lozenge PRN Diarrhea-resolved C. difficile PCR negative DVT Prophylaxis Aubrey Cagle MD April 03, 2017 12:07
[2017-04-03] MEDS: LORazepam 0.5 MG TAB PO PRN ×2 (12:11→18:53)
[2017-04-03] MEDS: cefTRIAXone INJ 2,000 MG in SODIUM CHLORIDE 0.9% INJ 100 ML IV SCH (12:11)
[2017-04-03] MEDS: MULTIVITAMIN TAB PO SCH (12:12)
[2017-04-03] MEDS: SENNOSIDES 8.6 MG TAB PO SCH ×2 (12:12→21:00)
[2017-04-03] MEDS: PANTOPRAZOLE SOD 40 MG DELAYED RELEASE TAB PO SCH (12:13)
[2017-04-03] MEDS: SPIRONOLACTONE 25 MG TAB PO SCH (12:13)
[2017-04-03] MEDS: POTASSIUM CHLORIDE 20 MEQ CONTROLLED RELEASE TAB PO SCH ×2 (12:13→21:16)
[2017-04-03] MEDS: URSODIOL PO SCH ×2 (12:14→21:23)
[2017-04-03] MEDS: BUMETANIDE INJ 1 MG/4 ML VIAL IV PUSH SCH ×2 (12:15→17:51)
[2017-04-03] MEDS: SODIUM CHLORIDE 0.9% FLUSH 10 ML FLUSH IV FLUSH SCH ×2 (12:16→21:00)
--- NOTE | 2017-04-03 13:08 | PD.ONC.PN ---
Subjective Subjective Remarks Afebrile overnight. Patient resting in room. No complaints. Objective Data Date Time Temp Pulse Resp B/P Pulse Ox O2 Delivery O2 Flow Rate FiO2 04/03/17 12:00 98.0 120 18 135/63 95 04/03/17 08:00 98.2 84 18 129/57 98 04/03/17 07:53 Room Air 04/03/17 07:53 77 04/03/17 04:00 98.1 69 18 122/60 96 04/03/17 00:00 98.0 61 18 114/56 96 04/02/17 21:50 Room Air 04/02/17 20:20 71 04/02/17 20:00 97.9 69 18 110/58 97 04/02/17 18:17 98 21 04/02/17 16:00 97.9 60 20 119/56 96 04/03/17 04/03/17 04/03/17 07:00 15:00 23:00 Output Total 3000 ml Balance -3000 ml Result Diagram: 04/03/17 0819 04/02/17 0600 Laboratory Results Laboratory Tests Test 04/02/17 04/03/17 15:59 08:19 White Blood Count 12.1 TH/MM3 10.9 TH/MM3 Red Blood Count 3.48 MIL/MM3 3.37 MIL/MM3 Hemoglobin 10.1 GM/DL 9.8 GM/DL Hematocrit 30.7 % 29.4 % Mean Corpuscular Volume 88.2 FL 87.1 FL Mean Corpuscular Hemoglobin 29.1 PG 29.2 PG Mean Corpuscular Hemoglobin 33.0 % 33.5 % Concent Red Cell Distribution Width 18.7 % 17.9 % Platelet Count 81 TH/MM3 87 TH/MM3 Mean Platelet Volume 7.9 FL 8.1 FL Neutrophils (%) (Auto) 86.1 % Lymphocytes (%) (Auto) 6.5 % Monocytes (%) (Auto) 6.0 % Eosinophils (%) (Auto) 1.0 % Basophils (%) (Auto) 0.4 % Neutrophils # (Auto) 9.4 TH/MM3 Lymphocytes # (Auto) 0.7 TH/MM3 Monocytes # (Auto) 0.7 TH/MM3 Eosinophils # (Auto) 0.1 TH/MM3 Basophils # (Auto) 0.0 TH/MM3 CBC Comment AUTO DIFF Differential Comment AUTO DIFF CONFIRMED Prothrombin Time 38.2 SEC Prothromb Time International 3.3 RATIO Ratio Activated Partial 62.2 SEC Thromboplast Time Administered Medications Medications (Trade) Dose Ordered Sig/Tunde Route PRN Reason Start Time Stop Time Status Last Admin Dose Admin Atorvastatin Calcium (Lipitor) 10 mg HS PO 03/12/17 21:00 04/02/17 21:50 Levothyroxine Sodium (Synthroid) 75 mcg DAILY@06 PO 03/14/17 06:00 04/03/17 06:15 Sodium Chloride (NS Flush) DAILY IVF 03/13/17 09:00 04/01/17 08:32 Sodium Chloride (NS Flush) UNSCH PRN IVF SEE PROTOCOL 03/13/17 08:00 03/14/17 09:13 Sodium Chloride (NS Flush) 2 ml UNSCH PRN IV FLUSH FLUSH AFTER USING IV ACCESS 03/13/17 08:30 03/14/17 09:13 Sodium Chloride (NS Flush) 2 ml BID IV FLUSH 03/13/17 09:00 04/03/17 12:16 Acetaminophen (Tylenol) 650 mg Q6H PRN PO PAIN 1-2 AND/OR FEVER >101F 03/13/17 08:30 04/01/17 16:48 Acetaminophen/ Hydrocodone Bitart ([place] 5-325 Mg) 1 tab Q4H PRN PO PAIN SCALE 3 TO 5 03/13/17 08:30 04/02/17 18:40 Ondansetron HCl (Zofran Inj) 4 mg Q6H PRN IV NAUSEA OR VOMITING 03/13/17 08:30 03/26/17 08:50 Docusate Sodium (Colace) 100 mg BID PO 03/13/17 09:00 04/02/17 08:25 Miscellaneous Information 1 Q361D XX 03/13/17 08:30 03/14/17 09:14 Chlorhexidine Gluconate (Chlorhexidine 2% Cloth) 3 pack Taper DAILY@04 TOP 03/14/17 04:00 03/10/18 03:59 04/02/17 04:00 Multivitamins 1 tab 1 tab DAILY PO 03/13/17 11:30 04/03/17 12:12 Ceftriaxone Sodium/Sodium Chloride (Rocephin Inj/NS Inj) 100 ml @ 200 mls/hr Q24H IV 03/14/17 13:00 04/03/17 12:11 Sennosides (Senokot) 17.2 mg Q12H PO 03/14/17 21:00 04/03/17 12:12 Patient Own Medication PT OWN MED: Ursod... BID PO 03/15/17 13:00 04/03/17 12:14 Diltiazem HCl (Cardizem) 60 mg TID PO 03/19/17 18:00 04/03/17 12:22 Calcium Carbonate (Oscal) 1,000 mg TID PO 03/20/17 09:00 04/03/17 12:22 Bumetanide 1 mg 1 mg BID@ IV PUSH 03/20/17 18:00 04/03/17 12:15 Sodium Chloride (NS 1000 ml Inj) 1,000 ml @ 200 mls/hr Q5H PRN IV WITH DIALYSIS 03/21/17 11:22 03/27/17 12:24 Heparin Sodium (Porcine) (Heparin Inj) UNSCH PRN .XX WITH DIALYSIS 03/21/17 11:30 03/27/17 12:25 Gentamicin Sulfate (Gentamicin (Dialysis) Inj) 20 mg UNSCH PRN IV WITH DIALYSIS 03/21/17 11:30 04/03/17 11:35 Epoetin Derrell (Epogen Inj) 4,000 units UNSCH PRN IV WITH DIALYSIS 03/21/17 11:30 04/03/17 11:35 Insulin Detemir (Levemir Inj) 10 units HS SQ 03/24/17 21:00 04/02/17 22:07 Pantoprazole Sodium (Protonix) 40 mg DAILY PO 03/24/17 11:00 04/03/17 12:13 Calcium Carbonate 500 mg 500 mg Q8HR PRN CHEW HEARTBURN 03/24/17 11:00 03/24/17 11:01 Argatroban/Sodium Chloride (Novastan Inj/NS 250 ml Inj) 250 ml @ 0 mls/hr TITRATE IV 03/30/17 19:45 04/03/17 01:37 Potassium Chloride (KCl) 20 meq Q12HR PO 03/31/17 21:00 04/03/17 12:13 Spironolactone (Aldactone) 25 mg DAILY PO 04/01/17 13:30 04/03/17 12:13 Lorazepam (Ativan) 0.5 mg Q6H PRN PO anxiety 04/02/17 00:00 04/03/17 12:11 Objective Remarks GENERAL: Elderly female, talking on phone in bed in nad. SKIN: Warm and dry. HEAD: Normocephalic. EYES: No injection or drainage. NECK: Supple, trachea midline. EXTREMITIES: No cyanosis. CARDIO: +S1/S2 LUNGS: CTAB MUSCULOSKELETAL: Adequate muscle tone. NEUROLOGICAL: aox3 normal speech Assessment/Plan Problem List: (1) Thrombocytopenia Status: Chronic Plan: -- +chronic thrombocytopenia for some time -- HIT positive -- Possibility of acquired von Willebrand deficiency from the prosthetic aortic valve -- Monitor Coags while on Argatroban Hx/Workup: Mrs. Jerome is a 76-year-old woman who presented with generalized weakness on 03/11/2017. She has a history of thrombocytopenia reported by the patient and her during her cataract surgery. Her platelet count on admission was 148,000. It continued to trend down. She is noted to have started heparin on 03/14 as well as March 17. She had gradual decrease of platelet count temporarily related to starting heparin protocol. Assessment 76 y/o female with thrombocytopenia. 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 continue Argatroban bridge to coumadin. INR must be greater than 4 before Argatroban is stopped. 2. monitor CBC, INR Attending Statement Agree with above. As discussed. Goal INR 2-3. Romy Oropeza April 03, 2017 13:08 Mojgan Mcginnis MD April 03, 2017 21:09
[2017-04-03] MEDS ORDERED: WARFARIN SOD 4 MG TAB PO SCH (16:00)
[2017-04-03] MEDS: INSULIN DETEMIR 100 UNITS/ML VIAL SQ SCH (21:15)
[2017-04-03] MEDS: ACETAMINOPHEN/HYDROcodone 325 MG/5 MG TAB PO PRN (21:17)
[2017-04-03] MEDS: ATORVASTATIN 10 MG TAB PO SCH (21:17)
[2017-04-04] VITALS (7 sets, daily range): BP systolic 115–137; BP diastolic 56–68; PULSE 59–101; RESP 16–20; TEMP 97.4–99; O2SAT 96–99
[2017-04-04] MEDS: CHLORHEXIDINE GLUCONATE 2 % 1 PACK (2 CLOTHS) TOP SCH (03:18)
[2017-04-04] MEDS: LEVOTHYROXINE SODIUM 75 MCG TAB PO SCH (05:17)
[2017-04-04] MEDS: INSULIN ASPART SUPPLEMENTAL SCALE SQ SCH ×4 (06:34→21:10)
[2017-04-04 08:07] LABS: MEAN CELL VOLUME 87.8 FL (80.0-100.0); MEAN CORPUSCULAR HEMOGLOBIN 29.6 PG (27.0-34.0); MEAN CORPUSCULAR HGB CONC 33.7 % (32.0-36.0); PLATELET COUNT 101 TH/MM3 (150-450); RED BLOOD COUNT 3.31 MIL/MM3 (4.00-5.30); REVIEW FLAG FINAL; WHITE BLOOD COUNT 9.9 TH/MM3 (4.0-11.0)
[2017-04-04] MEDS: BUMETANIDE INJ 1 MG/4 ML VIAL IV PUSH SCH ×2 (08:09→17:16)
[2017-04-04] MEDS: PANTOPRAZOLE SOD 40 MG DELAYED RELEASE TAB PO SCH (08:10)
[2017-04-04] MEDS: SPIRONOLACTONE 25 MG TAB PO SCH (08:11)
[2017-04-04] MEDS: MULTIVITAMIN TAB PO SCH (08:12)
[2017-04-04] MEDS: CALCIUM CARBONATE 1.25 GM (CA 500 MG) TAB PO SCH ×3 (08:12→17:16)
[2017-04-04] MEDS: DILTIAZEM HCL 60 MG TAB PO SCH ×3 (08:13→17:16)
[2017-04-04] MEDS: POTASSIUM CHLORIDE 20 MEQ CONTROLLED RELEASE TAB PO SCH ×2 (08:13→20:59)
[2017-04-04] MEDS: URSODIOL PO SCH ×2 (08:13→21:00)
[2017-04-04] MEDS: SODIUM CHLORIDE 0.9% FLUSH 10 ML FLUSH IVF SCH (08:16)
[2017-04-04] MEDS: SODIUM CHLORIDE 0.9% FLUSH 10 ML FLUSH IV FLUSH SCH ×2 (08:16→21:02)
[2017-04-04] MEDS: DOCUSATE SODIUM 100 MG CAP PO SCH ×2 (08:17→21:00)
[2017-04-04] MEDS: SENNOSIDES 8.6 MG TAB PO SCH ×2 (08:17→21:00)
[2017-04-04 08:19] LABS: APTT (PATIENT) 59.9 SEC (24.3-30.1)
--- NOTE | 2017-04-04 11:14 | PD.ONC.PN ---
Subjective Subjective Remarks Afebrile overnight. Patient resting in chair next to bed with at bedside. She has some swelling in her legs today. Objective Data Date Time Temp Pulse Resp B/P Pulse Ox O2 Delivery O2 Flow Rate FiO2 04/04/17 08:04 Room Air 04/04/17 08:00 98.3 101 18 131/60 97 04/04/17 07:56 95 04/04/17 04:00 99.0 78 20 137/56 96 04/04/17 00:00 98.1 72 20 123/56 96 04/03/17 20:00 98.4 74 20 121/59 93 04/03/17 20:00 Room Air 04/03/17 20:00 73 04/03/17 16:00 98.0 108 18 122/60 98 04/03/17 14:00 106 04/03/17 12:00 98.0 120 18 135/63 95 04/04/17 04/04/17 04/04/17 07:00 15:00 23:00 Intake Total 720 ml Balance 720 ml Result Diagram: 04/04/17 0724 04/02/17 0600 Laboratory Results Laboratory Tests Test 04/04/17 07:24 White Blood Count 9.9 TH/MM3 Red Blood Count 3.31 MIL/MM3 Hemoglobin 9.8 GM/DL Hematocrit 29.0 % Mean Corpuscular Volume 87.8 FL Mean Corpuscular Hemoglobin 29.6 PG Mean Corpuscular Hemoglobin 33.7 % Concent Red Cell Distribution Width 18.0 % Platelet Count 101 TH/MM3 Mean Platelet Volume 7.7 FL Activated Partial 59.9 SEC Thromboplast Time Administered Medications Medications (Trade) Dose Ordered Sig/Tunde Route PRN Reason Start Time Stop Time Status Last Admin Dose Admin Atorvastatin Calcium (Lipitor) 10 mg HS PO 03/12/17 21:00 04/03/17 21:17 Levothyroxine Sodium (Synthroid) 75 mcg DAILY@06 PO 03/14/17 06:00 04/04/17 05:17 Sodium Chloride (NS Flush) DAILY IVF 03/13/17 09:00 04/01/17 08:32 Sodium Chloride (NS Flush) UNSCH PRN IVF SEE PROTOCOL 03/13/17 08:00 03/14/17 09:13 Sodium Chloride (NS Flush) 2 ml UNSCH PRN IV FLUSH FLUSH AFTER USING IV ACCESS 03/13/17 08:30 03/14/17 09:13 Sodium Chloride (NS Flush) 2 ml BID IV FLUSH 03/13/17 09:00 04/04/17 08:16 Acetaminophen (Tylenol) 650 mg Q6H PRN PO PAIN 1-2 AND/OR FEVER >101F 03/13/17 08:30 04/01/17 16:48 Acetaminophen/ Hydrocodone Bitart ([place] 5-325 Mg) 1 tab Q4H PRN PO PAIN SCALE 3 TO 5 03/13/17 08:30 04/03/17 21:17 Ondansetron HCl (Zofran Inj) 4 mg Q6H PRN IV NAUSEA OR VOMITING 03/13/17 08:30 03/26/17 08:50 Docusate Sodium (Colace) 100 mg BID PO 03/13/17 09:00 04/02/17 08:25 Miscellaneous Information 1 Q361D XX 03/13/17 08:30 03/14/17 09:14 Chlorhexidine Gluconate (Chlorhexidine 2% Cloth) 3 pack Taper DAILY@04 TOP 03/14/17 04:00 03/10/18 03:59 04/02/17 04:00 Multivitamins 1 tab 1 tab DAILY PO 03/13/17 11:30 04/04/17 08:12 Ceftriaxone Sodium/Sodium Chloride (Rocephin Inj/NS Inj) 100 ml @ 200 mls/hr Q24H IV 03/14/17 13:00 04/03/17 12:11 Sennosides (Senokot) 17.2 mg Q12H PO 03/14/17 21:00 04/03/17 12:12 Patient Own Medication PT OWN MED: Ursod... BID PO 03/15/17 13:00 04/04/17 08:13 Diltiazem HCl (Cardizem) 60 mg TID PO 03/19/17 18:00 04/04/17 08:13 Calcium Carbonate (Oscal) 1,000 mg TID PO 03/20/17 09:00 04/04/17 08:12 Bumetanide 1 mg 1 mg BID@,18 IV PUSH 03/20/17 18:00 04/04/17 08:09 Sodium Chloride (NS 1000 ml Inj) 1,000 ml @ 200 mls/hr Q5H PRN IV WITH DIALYSIS 03/21/17 11:22 03/27/17 12:24 Heparin Sodium (Porcine) (Heparin Inj) UNSCH PRN .XX WITH DIALYSIS 03/21/17 11:30 03/27/17 12:25 Gentamicin Sulfate (Gentamicin (Dialysis) Inj) 20 mg UNSCH PRN IV WITH DIALYSIS 03/21/17 11:30 04/03/17 11:35 Epoetin Derrell (Epogen Inj) 4,000 units UNSCH PRN IV WITH DIALYSIS 03/21/17 11:30 04/03/17 11:35 Insulin Detemir (Levemir Inj) 10 units HS SQ 03/24/17 21:00 04/03/17 21:15 Pantoprazole Sodium (Protonix) 40 mg DAILY PO 03/24/17 11:00 04/04/17 08:10 Calcium Carbonate 500 mg 500 mg Q8HR PRN CHEW HEARTBURN 03/24/17 11:00 03/24/17 11:01 Argatroban/Sodium Chloride (Novastan Inj/NS 250 ml Inj) 250 ml @ 0 mls/hr TITRATE IV 03/30/17 19:45 04/03/17 01:37 Potassium Chloride (KCl) 20 meq Q12HR PO 03/31/17 21:00 04/04/17 08:13 Spironolactone (Aldactone) 25 mg DAILY PO 04/01/17 13:30 04/04/17 08:11 Lorazepam (Ativan) 0.5 mg Q6H PRN PO anxiety 04/02/17 00:00 04/03/17 18:53 Objective Remarks GENERAL: Elderly female, sitting up in chair next to bed SKIN: Warm and dry. vascath in neck, no bleeding. HEAD: Normocephalic. EYES: No injection or drainage. NECK: Supple, trachea midline. EXTREMITIES: No cyanosis. CARDIO: +S1/S2 LUNGS: clear to auscultation MUSCULOSKELETAL: Adequate muscle tone. NEUROLOGICAL: awake and alert, normal speech. moving all extremities. Assessment/Plan Problem List: (1) Thrombocytopenia Status: Chronic Plan: -- +chronic thrombocytopenia for some time -- HIT positive -- Possibility of acquired von Willebrand deficiency from the prosthetic aortic valve -- Monitor Coags while on Argatroban Hx/Workup: Mrs. Justus is a 76-year-old woman who presented with generalized weakness on 03/11/2017. She has a history of thrombocytopenia reported by the patient and her during her cataract surgery. Her platelet count on admission was 148,000. It continued to trend down. She is noted to have started heparin on 03/14 as well as March 17. She had gradual decrease of platelet count temporarily related to starting heparin protocol. Assessment 76 y/o female with thrombocytopenia. 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 will stop coumadin until a decision is made about perma-cath placement. per nephrology note, possible perma-cath placement on Friday 2. continue Argatroban 3. monitor CBC Attending Statement The exam, history, and the medical decision-making described in the above note were completed with the assistance of the mid-level provider. I reviewed and agree with the findings presented. I attest that I had a [id number] encounter with the patient on the same day, and personally performed and documented my assessment and findings in the medical record. Pt in good spirits, noted platelet count 101K. Decision pending perma-cath for dialysis, unable to continue bridge to therapeutic INR. Pt feels she is deconditioned but wishes to go home and have home PT. Romy Oropeza April 04, 2017 11:14 Mojgan Mcginnis MD April 04, 2017 21:19
--- NOTE | 2017-04-04 12:29 | HHI.PR ---
Subjective Remarks Follow up infective endocarditis/Renal failure 03/25/17-patient seen and examined; alert and oriented x 3; afebrile. NO acute event overnight 03/26/17-patient seen and examined, denies any chest pain or shortness of breath. Currently afebrile. Family by the bedside. 03/27/17-patient seen and examined; Doppler negative for DVT and patient denies any chest pain or shortness of breath. Thrombocytopenia worsening however patient denies any easy bruising. Cr improving. 03/28/17-patient seen and examined, she had hemodialysis yesterday. Platelet up to 27 today. BMP pending 03/29/17-patient seen and examined. Had HD today; no SOB 03/30/17-patient seen and examined, states she's having semi-loose BM, no other issues 03/31/17patient seen and examined, complaints of sore throat but denies any chills or cough. Renal indices improving 04/01/17-patient seen and examined, creatinine slightly improving. Positive for loose stool and denies any sore throat today. 04/02/17-patient seen and examined; NO Shortness of breath however she fill puffy around the waist. 04/03/17-patient seen and examined in dialysis center. Denies any shortness of breath. No acute event overnight. Platelet count up to 87,000 04/04/17-patient seen and examined, stable and no complaint. Denies feeling puffy. Plan for PermCath Placement next week Objective Vitals Vital Signs Date Time Temp Pulse Resp B/P Pulse Ox O2 Delivery O2 Flow Rate FiO2 04/04/17 08:04 Room Air 04/04/17 08:00 98.3 101 18 131/60 97 04/04/17 07:56 95 04/04/17 04:00 99.0 78 20 137/56 96 04/04/17 00:00 98.1 72 20 123/56 96 04/03/17 20:00 98.4 74 20 121/59 93 04/03/17 20:00 Room Air 04/03/17 20:00 73 04/03/17 16:00 98.0 108 18 122/60 98 04/03/17 14:00 106 I/O 04/03/17 04/03/17 04/03/17 04/04/17 04/04/1719/17 07:00 15:00 23:00 07:00 15:00 23:00 Intake Total 720 ml 800 ml 720 ml Output Total 3400 ml 200 ml Balance -2680 ml 600 ml 720 ml Intake Oral 720 ml 800 ml 720 ml Output Urine Total 400 ml 200 ml Hemodialysis 3000 ml # Voids 2 # Bowel Movements 1 1 2 Result Diagram: 04/04/17 0724 04/02/17 0600 Objective Remarks GENERAL: NAD SKIN: Warm and dry. HEAD: Normocephalic. EYES: No scleral icterus. No injection or drainage. NECK: Supple, trachea midline. No JVD or lymphadenopathy. CARDIOVASCULAR: Regular rate and rhythm with murmurs II/ BRENDA RESPIRATORY: Breath sounds equal bilaterally. No accessory muscle use. GASTROINTESTINAL: Abdomen soft, non-tender, nondistended. MUSCULOSKELETAL: No cyanosis; +1 edema BLE. BACK: Nontender without obvious deformity. No CVA tenderness. 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 Worsening of cr Plan for PermCath placement next week Coumadin on hold A-fib with RVR Controlled on a Diltiazem PO Off Heparin Drip secondary to HIT Cardiology ff Anemia H&H stable and continue to monitor CBC Hyperlipidemia Statin Biliary Cirrhosis, state IV Spironolactone continued Lasix and Mckenna continued DM2 SSI Long acting insulins Diabetic Diet Hypothyroidism Continue supplementation GERD Hiatal Hernia Continue PPI Heparin induced Thrombocytopenia + CHAPO Currently on Argatroban and platelet count>27562 Currently on Coumadin since 04/03/17, however secondary to plan for PermCath placement next week Coumadin is on hold. Appreciate input from hematology Hypokalemia Resolved Sore throat Resolved and continue with Lozenge PRN Diarrhea-resolved C. difficile PCR negative DVT Prophylaxis Aubrey Cagle MD April 04, 2017 12:28
[2017-04-04] MEDS: cefTRIAXone INJ 2,000 MG in SODIUM CHLORIDE 0.9% INJ 100 ML IV SCH (12:33)
--- NOTE | 2017-04-04 12:36 | HHI.NPPN ---
Subjective History of Present Illness 76 Year old W Female with ARF, Biliary Cirrhosis, streptococcus Viridans sepsis Additional Remarks Patient is alert, no SOB, started eating better. Review of Systems General Constitutional: Fatigue Objective Data Data 04/03/17 04/04/17 19:00 07:00 Intake Total 720 ml 1520 ml Output Total 3400 ml 200 ml Balance -2680 ml 1320 ml Intake Oral 720 ml 1520 ml Output Urine Total 400 ml 200 ml Hemodialysis 3000 ml # Voids 2 # Bowel Movements 1 3 Vital Signs Date Time Temp Pulse Resp B/P Pulse Ox O2 Delivery O2 Flow Rate FiO2 04/04/17 08:04 Room Air 04/04/17 08:00 98.3 101 18 131/60 97 04/04/17 07:56 95 04/04/17 04:00 99.0 78 20 137/56 96 04/04/17 00:00 98.1 72 20 123/56 96 04/03/17 20:00 98.4 74 20 121/59 93 04/03/17 20:00 Room Air 04/03/17 20:00 73 04/03/17 16:00 98.0 108 18 122/60 98 04/03/17 14:00 106 -: 04/04/17 0724 04/02/17 0600 Physical Exam General Appearance: No Acute Distress, Comfortable, Anxious Neck Neck Exam: Neck Supple Pulmonary Resp Exam: Breath Sounds Equal, No Distress, Rhonchi, Decreased Bases Cardiology CV Exam: Irregular Gastrointestinal/Abdomen GI Exam: Soft, Non-Tender, Bowel Sounds Present Extremeties Extremities Exam: Moderate Edema Neurologic Neuro Exam: Alert, Awake, Oriented Psychiatric Psych Exam: Appropriate Responses Assessment/Plan Problem List: (1) Acute renal failure Plan: This is ARF edema persists Non oliguric, on Bumex. 1 Aldactone 25 mg daily hemodialysis initiated again next HD tomorrow will need PermCath HOLD Warfarin as INR high need to be off Coumadin till Friday for PermCath HIT pos (2) Streptococcal bacteremia Plan: Infectious disease is following she is on broad-spectrum antibiotic ceftriaxone (3) Atrial flutter with rapid ventricular response Plan: Off diltiazem (4) Biliary liver cirrhosis Plan: Follows with GI (5) Thrombocytopenia Plan: HIT positive Hematology fu Argatroban Problem Qualifiers (1) Acute renal failure: Qualified Code: N17.9 - Acute renal failure, unspecified acute renal failure type Molly Peng MD April 04, 2017 12:36
[2017-04-04] MEDS: ATORVASTATIN 10 MG TAB PO SCH (20:58)
[2017-04-04] MEDS: ACETAMINOPHEN/HYDROcodone 325 MG/5 MG TAB PO PRN (20:58)
[2017-04-04] MEDS: INSULIN DETEMIR 100 UNITS/ML VIAL SQ SCH (21:07)
[2017-04-05] VITALS (7 sets, daily range): BP systolic 111–146; BP diastolic 56–76; PULSE 70–105; RESP 20; TEMP 97.5–98.4; O2SAT 95–96
[2017-04-05] MEDS: CHLORHEXIDINE GLUCONATE 2 % 1 PACK (2 CLOTHS) TOP SCH (04:00)
[2017-04-05] MEDS: ARGATROBAN IV SCH (05:19)
[2017-04-05] MEDS: SODIUM CHLOR 0.9% IV SCH (05:19)
[2017-04-05] MEDS: LEVOTHYROXINE SODIUM 75 MCG TAB PO SCH (05:26)
[2017-04-05] MEDS: INSULIN ASPART SUPPLEMENTAL SCALE SQ SCH ×4 (05:27→21:22)
[2017-04-05 07:25] LABS: APTT (PATIENT) 60.1 SEC (24.3-30.1)
[2017-04-05 07:42] LABS: BICARBONATE 30.5 MEQ/L (21.0-32.0)
[2017-04-05] MEDS: SODIUM CHLORIDE 0.9% FLUSH 10 ML FLUSH IVF SCH (09:00)
[2017-04-05] MEDS: CALCIUM CARBONATE 1.25 GM (CA 500 MG) TAB PO SCH ×3 (09:00→17:05)
[2017-04-05] MEDS: DILTIAZEM HCL 60 MG TAB PO SCH ×3 (09:00→17:05)
[2017-04-05] MEDS: DOCUSATE SODIUM 100 MG CAP PO SCH ×2 (09:00→21:00)
[2017-04-05] MEDS: SENNOSIDES 8.6 MG TAB PO SCH ×2 (09:00→21:00)
--- NOTE | 2017-04-05 09:34 | PD.ONC.PN ---
Subjective Subjective Remarks Afebrile overnight. Patient resting comfortably in bed in nad. No overnight events. No bleeding. Objective Data Date Time Temp Pulse Resp B/P Pulse Ox O2 Delivery O2 Flow Rate FiO2 04/05/17 07:50 98.4 96 20 146/76 96 04/05/17 04:00 Room Air 04/05/17 04:00 98.1 83 20 117/64 96 04/05/17 00:04 98.4 74 20 111/56 96 04/05/17 00:00 Room Air 04/04/17 21:00 Room Air 04/04/17 20:00 59 04/04/17 20:00 98.1 61 20 115/61 97 04/04/17 16:00 97.9 70 18 130/68 97 04/04/17 12:00 97.4 81 16 119/58 99 04/05/17 04/05/17 04/05/17 07:00 15:00 23:00 Intake Total 497 ml Output Total 400 ml Balance 97 ml Result Diagram: 04/04/17 0724 04/05/17 0640 Laboratory Results Laboratory Tests Test 04/05/17 06:40 Activated Partial 60.1 SEC Thromboplast Time Sodium Level 134 MEQ/L Potassium Level 4.0 MEQ/L Chloride Level 95 MEQ/L Carbon Dioxide Level 30.5 MEQ/L Anion Gap 9 MEQ/L Blood Urea Nitrogen 19 MG/DL Creatinine 1.91 MG/DL Estimat Glomerular Filtration 26 ML/MIN Rate Random Glucose 107 MG/DL Calcium Level 8.2 MG/DL Administered Medications Medications (Trade) Dose Ordered Sig/Tunde Route PRN Reason Start Time Stop Time Status Last Admin Dose Admin Atorvastatin Calcium (Lipitor) 10 mg HS PO 03/12/17 21:00 04/04/17 20:58 Levothyroxine Sodium (Synthroid) 75 mcg DAILY@06 PO 03/14/17 06:00 04/05/17 05:26 Sodium Chloride (NS Flush) DAILY IVF 03/13/17 09:00 04/01/17 08:32 Sodium Chloride (NS Flush) UNSCH PRN IVF SEE PROTOCOL 03/13/17 08:00 03/14/17 09:13 Sodium Chloride (NS Flush) 2 ml UNSCH PRN IV FLUSH FLUSH AFTER USING IV ACCESS 03/13/17 08:30 03/14/17 09:13 Sodium Chloride (NS Flush) 2 ml BID IV FLUSH 03/13/17 09:00 04/04/17 21:02 Acetaminophen (Tylenol) 650 mg Q6H PRN PO PAIN 1-2 AND/OR FEVER >101F 03/13/17 08:30 04/01/17 16:48 Acetaminophen/ Hydrocodone Bitart ([place] 5-325 Mg) 1 tab Q4H PRN PO PAIN SCALE 3 TO 5 03/13/17 08:30 04/04/17 20:58 Ondansetron HCl (Zofran Inj) 4 mg Q6H PRN IV NAUSEA OR VOMITING 03/13/17 08:30 03/26/17 08:50 Docusate Sodium (Colace) 100 mg BID PO 03/13/17 09:00 04/02/17 08:25 Miscellaneous Information 1 Q361D XX 03/13/17 08:30 03/14/17 09:14 Chlorhexidine Gluconate (Chlorhexidine 2% Cloth) 3 pack Taper DAILY@04 TOP 03/14/17 04:00 03/10/18 03:59 04/02/17 04:00 Multivitamins 1 tab 1 tab DAILY PO 03/13/17 11:30 04/04/17 08:12 Ceftriaxone Sodium/Sodium Chloride (Rocephin Inj/NS Inj) 100 ml @ 200 mls/hr Q24H IV 03/14/17 13:00 04/04/17 12:33 Sennosides (Senokot) 17.2 mg Q12H PO 03/14/17 21:00 04/03/17 12:12 Patient Own Medication PT OWN MED: Ursod... BID PO 03/15/17 13:00 04/04/17 21:00 Diltiazem HCl (Cardizem) 60 mg TID PO 03/19/17 18:00 04/04/17 17:16 Calcium Carbonate (Oscal) 1,000 mg TID PO 03/20/17 09:00 04/04/17 17:16 Bumetanide 1 mg 1 mg BID@,18 IV PUSH 03/20/17 18:00 04/04/17 17:16 Sodium Chloride (NS 1000 ml Inj) 1,000 ml @ 200 mls/hr Q5H PRN IV WITH DIALYSIS 03/21/17 11:22 03/27/17 12:24 Heparin Sodium (Porcine) (Heparin Inj) UNSCH PRN .XX WITH DIALYSIS 03/21/17 11:30 03/27/17 12:25 Gentamicin Sulfate (Gentamicin (Dialysis) Inj) 20 mg UNSCH PRN IV WITH DIALYSIS 03/21/17 11:30 04/03/17 11:35 Epoetin Derrell (Epogen Inj) 4,000 units UNSCH PRN IV WITH DIALYSIS 03/21/17 11:30 04/03/17 11:35 Insulin Detemir (Levemir Inj) 10 units HS SQ 03/24/17 21:00 04/04/17 21:07 Pantoprazole Sodium (Protonix) 40 mg DAILY PO 03/24/17 11:00 04/04/17 08:10 Calcium Carbonate 500 mg 500 mg Q8HR PRN CHEW HEARTBURN 03/24/17 11:00 03/24/17 11:01 Argatroban/Sodium Chloride (Novastan Inj/NS 250 ml Inj) 250 ml @ 0 mls/hr TITRATE IV 03/30/17 19:45 04/05/17 05:19 Potassium Chloride (KCl) 20 meq Q12HR PO 03/31/17 21:00 04/04/17 20:59 Spironolactone (Aldactone) 25 mg DAILY PO 04/01/17 13:30 04/04/17 08:11 Lorazepam (Ativan) 0.5 mg Q6H PRN PO anxiety 04/02/17 00:00 04/03/17 18:53 Objective Remarks GENERAL: Elderly female, lying in bed in nad. SKIN: Warm and dry. vas-cath in neck, no bleeding. HEAD: Normocephalic. EYES: No injection or drainage. NECK: Supple, trachea midline. EXTREMITIES: No cyanosis. CARDIO: +S1/S2 LUNGS: diminished at bases. occasional rhonchi anterior vargas. MUSCULOSKELETAL: Adequate muscle tone. NEUROLOGICAL: aox3. normal speech. Assessment/Plan Problem List: (1) Thrombocytopenia Status: Chronic Plan: -- +chronic thrombocytopenia for some time -- HIT positive -- Possibility of acquired von Willebrand deficiency from the prosthetic aortic valve -- Monitor Coags while on Argatroban Hx/Workup: Mrs. Jerome is a 76-year-old woman who presented with generalized weakness on 03/11/2017. She has a history of thrombocytopenia reported by the patient and her during her cataract surgery. Her platelet count on admission was 148,000. It continued to trend down. She is noted to have started heparin on 03/14 as well as March 17. She had gradual decrease of platelet count temporarily related to starting heparin protocol. Assessment 76 y/o female with thrombocytopenia. 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 continue Argatroban 2. monitor CBC 3. plan to restart coumadin bridge after perma-cath placement Attending Statement The exam, history, and the medical decision-making described in the above note were completed with the assistance of the mid-level provider. I reviewed and agree with the findings presented. I attest that I had a [id number] encounter with the patient on the same day, and personally performed and documented my assessment and findings in the medical record. Pt seen and examined. at bedside. Platelet recovery with avoiding heparin and argatroban. No thrombotic event. Discussed nephrology plan for permacath, for this reading bridge to therapeutic INR held. Tolerated dialysis well today. Patiently waiting to go home. Discussed goal INR 2-3. Romy Oropeza April 05, 2017 09:34 Mojgan Mcginnis MD April 05, 2017 15:40
--- NOTE | 2017-04-05 10:02 | HHI.NPPN ---
Subjective History of Present Illness 76 Year old W Female with ARF, Biliary Cirrhosis, streptococcus Viridans sepsis Additional Remarks Patient is alert, seen during HD, still has leg edema. Review of Systems General Constitutional: Fatigue Objective Data Data 04/04/17 04/05/17 19:00 07:00 Intake Total 480 ml 741 ml Output Total 400 ml 600 ml Balance 80 ml 141 ml Intake Oral 480 ml 600 ml IV Total 141 ml Output Urine Total 400 ml 600 ml # Bowel Movements 2 2 Vital Signs Date Time Temp Pulse Resp B/P Pulse Ox O2 Delivery O2 Flow Rate FiO2 04/05/17 08:30 Room Air 04/05/17 07:50 98.4 96 20 146/76 96 04/05/17 04:00 Room Air 04/05/17 04:00 98.1 83 20 117/64 96 04/05/17 00:04 98.4 74 20 111/56 96 04/05/17 00:00 Room Air 04/04/17 21:00 Room Air 04/04/17 20:00 59 04/04/17 20:00 98.1 61 20 115/61 97 04/04/17 16:00 97.9 70 18 130/68 97 04/04/17 12:00 97.4 81 16 119/58 99 -: 04/04/17 0724 04/05/17 0640 Physical Exam General Appearance: No Acute Distress, Comfortable, Anxious Neck Neck Exam: Neck Supple Pulmonary Resp Exam: Breath Sounds Equal, No Distress, Rhonchi, Decreased Bases Cardiology CV Exam: Irregular Gastrointestinal/Abdomen GI Exam: Soft, Non-Tender, Bowel Sounds Present Extremeties Extremities Exam: Moderate Edema Neurologic Neuro Exam: Alert, Awake, Oriented Psychiatric Psych Exam: Appropriate Responses Assessment/Plan Problem List: (1) Acute renal failure Plan: This is ARF, edema persists Non oliguric, on Bumex. 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 HD now, removing 3 liters. BP is stable. (2) Streptococcal bacteremia Plan: Infectious disease is following she is on broad-spectrum antibiotic ceftriaxone (3) Atrial flutter with rapid ventricular response Plan: Off diltiazem (4) Biliary liver cirrhosis Plan: Follows with GI (5) Thrombocytopenia Plan: HIT positive Hematology fu Argatroban Problem Qualifiers (1) Acute renal failure: Qualified Code: N17.9 - Acute renal failure, unspecified acute renal failure type Maribel Sherman MD April 05, 2017 10:02
[2017-04-05 10:59] LABS: INTERNATIONAL NORMALIZED RATIO 2.9 RATIO; PROTHROMBIN TIME - PATIENT 33.9 SEC (9.8-11.6)
[2017-04-05] MEDS: SODIUM CHLOR 0.9% 1000 ML INJ 1,000 ML IV PRN (11:41)
[2017-04-05] MEDS: SODIUM CHLORIDE 0.9% FLUSH 10 ML FLUSH IV FLUSH SCH ×2 (11:41→21:00)
[2017-04-05] MEDS: GENTAMICIN SULFATE (DIALYSIS USE ONLY) 20 MG/2 ML VIAL IV PRN (11:41)
[2017-04-05] MEDS: BUMETANIDE INJ 1 MG/4 ML VIAL IV PUSH SCH ×2 (12:36→17:05)
[2017-04-05] MEDS: URSODIOL PO SCH ×2 (12:36→21:14)
[2017-04-05] MEDS: cefTRIAXone INJ 2,000 MG in SODIUM CHLORIDE 0.9% INJ 100 ML IV SCH (12:37)
[2017-04-05] MEDS: POTASSIUM CHLORIDE 20 MEQ CONTROLLED RELEASE TAB PO SCH ×2 (12:37→21:17)
[2017-04-05] MEDS: MULTIVITAMIN TAB PO SCH (12:37)
[2017-04-05] MEDS: PANTOPRAZOLE SOD 40 MG DELAYED RELEASE TAB PO SCH (12:37)
[2017-04-05] MEDS: SPIRONOLACTONE 25 MG TAB PO SCH (12:37)
--- NOTE | 2017-04-05 14:37 | HHI.PR ---
Subjective Remarks Follow-up for endocarditis No overnight events, had dialysis today, no fever. Not short of breath, no chest pain, answered a few questions. Objective Vitals Vital Signs Date Time Temp Pulse Resp B/P Pulse Ox O2 Delivery O2 Flow Rate FiO2 04/05/17 12:40 97.5 105 20 125/74 95 04/05/17 08:30 Room Air 04/05/17 08:07 81 04/05/17 07:50 98.4 96 20 146/76 96 04/05/17 04:00 Room Air 04/05/17 04:00 98.1 83 20 117/64 96 04/05/17 00:04 98.4 74 20 111/56 96 04/05/17 00:00 Room Air 04/04/17 21:00 Room Air 04/04/17 20:00 59 04/04/17 20:00 98.1 61 20 115/61 97 04/04/17 16:00 97.9 70 18 130/68 97 I/O 04/04/17 04/04/17 04/04/17 04/05/17 04/05/17 04/05/17 06:59 14:59 22:59 06:59 14:59 22:59 Intake Total 720 ml 480 ml 244 ml 497 ml Output Total 400 ml 200 ml 400 ml 3000 ml Balance 720 ml 80 ml 44 ml 97 ml -3000 ml Intake Oral 720 ml 480 ml 120 ml 480 ml IV Total 124 ml 17 ml Output Urine Total 400 ml 200 ml 400 ml Hemodialysis 3000 ml # Voids 2 # Bowel Movements 2 2 1 1 Result Diagram: 04/04/17 0724 04/05/17 0640 Objective Remarks GENERAL: NAD SKIN: Warm and dry. HEAD: Normocephalic. EYES: No scleral icterus. No injection or drainage. NECK: Supple, trachea midline. No JVD or lymphadenopathy. CARDIOVASCULAR: Regular rate and rhythm with murmurs II/ BRENDA RESPIRATORY: Breath sounds equal bilaterally. No accessory muscle use. Vas- Cath in place GASTROINTESTINAL: Abdomen soft, non-tender, nondistended. MUSCULOSKELETAL: No cyanosis; +1 edema BLE. BACK: Nontender without obvious deformity. No CVA tenderness. Alert, awake, oriented 3, no focal deficits. 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 Infective Endocarditis at Prosthetic Valve Strep Bacteremia (Strep V) -Continue Rocephin until 04/25 and appreciate input from ID Repeat culture negative to date Cardiology ff Encephalopathy -resolved NATALIA -plan is for PermCath placement on Friday, will need to bridge her To Coumadin once PermCath is in place. On her get. Nephrology following, continue hemodialysis, continue Bumex and Aldactone, fluid restrictions and renal diet. INR is 2.9. A-fib with RVR - Controlled on a Diltiazem PO, needs anticoagulation, cardiology following Anemia and thrombocytopenia-HIT, HCAPO positive, argatroban per oncology, bridge back to Coumadin after PermCath placement Hyperlipidemia-continue statins Biliary Cirrhosis, state IV-continue Bumex and Lasix, continue Mcknena DM2-continue long-acting Levemir and sliding scale insulin, diabetic diet Hypothyroidism Continue supplementation GERD Hiatal Hernia Continue PPI Heparin induced Thrombocytopenia + CHAPO Currently on Argatroban and platelet count>12010, Coumadin on hold for PermCath placement. Diarrhea-resolved C. difficile PCR negative DVT Prophylaxis Shahid Garzon MD April 05, 2017 14:37 Resolved Sore throat Resolved and continue with Lozenge PRN Diarrhea-resolved C. difficile PCR negative DVT Prophylaxis Shahid Garzon MD April 05, 2017 14:37
[2017-04-05 15:17] LABS: HEMATOCRIT 34.6 % (35.0-46.0); MEAN CELL VOLUME 87.9 FL (80.0-100.0); MEAN CORPUSCULAR HEMOGLOBIN 29.1 PG (27.0-34.0); MEAN CORPUSCULAR HGB CONC 33.1 % (32.0-36.0); PLATELET COUNT 140 TH/MM3 (150-450); RED BLOOD COUNT 3.93 MIL/MM3 (4.00-5.30); RED CELL DISTRIBUTION WIDTH 17.9 % (11.6-17.2); REVIEW FLAG FINAL; WHITE BLOOD COUNT 19.1 TH/MM3 (4.0-11.0)
[2017-04-05] MEDS: ATORVASTATIN 10 MG TAB PO SCH (21:14)
[2017-04-05] MEDS: ACETAMINOPHEN/HYDROcodone 325 MG/5 MG TAB PO PRN (21:15)
[2017-04-05] MEDS: INSULIN DETEMIR 100 UNITS/ML VIAL SQ SCH (21:21)
[2017-04-06] VITALS (8 sets, daily range): BP systolic 98–137; BP diastolic 55–69; PULSE 66–113; RESP 18–20; TEMP 97.1–98.2; O2SAT 94–97
[2017-04-06] MEDS: ACETAMINOPHEN 325 MG TAB PO PRN ×3 (01:31→23:58)
[2017-04-06] MEDS: CHLORHEXIDINE GLUCONATE 2 % 1 PACK (2 CLOTHS) TOP SCH (04:00)
[2017-04-06] MEDS: LEVOTHYROXINE SODIUM 75 MCG TAB PO SCH (05:29)
[2017-04-06] MEDS: INSULIN ASPART SUPPLEMENTAL SCALE SQ SCH ×4 (05:35→20:46)
[2017-04-06] MEDS: SODIUM CHLORIDE 0.9% FLUSH 10 ML FLUSH IV FLUSH SCH ×2 (08:29→20:34)
[2017-04-06] MEDS: BUMETANIDE INJ 1 MG/4 ML VIAL IV PUSH SCH ×2 (08:29→16:59)
[2017-04-06] MEDS: MULTIVITAMIN TAB PO SCH (08:30)
[2017-04-06] MEDS: SODIUM CHLORIDE 0.9% FLUSH 10 ML FLUSH IVF SCH (08:30)
[2017-04-06] MEDS: SPIRONOLACTONE 25 MG TAB PO SCH (08:30)
[2017-04-06] MEDS: SENNOSIDES 8.6 MG TAB PO SCH (08:30)
[2017-04-06] MEDS: PANTOPRAZOLE SOD 40 MG DELAYED RELEASE TAB PO SCH (08:30)
[2017-04-06] MEDS: URSODIOL PO SCH ×2 (08:30→20:33)
[2017-04-06] MEDS: POTASSIUM CHLORIDE 20 MEQ CONTROLLED RELEASE TAB PO SCH ×2 (08:30→20:32)
[2017-04-06] MEDS: DOCUSATE SODIUM 100 MG CAP PO SCH ×2 (08:30→20:35)
[2017-04-06] MEDS: CALCIUM CARBONATE 1.25 GM (CA 500 MG) TAB PO SCH ×3 (08:30→16:58)
[2017-04-06] MEDS: DILTIAZEM HCL 60 MG TAB PO SCH ×3 (08:30→17:00)
[2017-04-06 08:54] LABS: AUTOMATED NEUTROPHIL # 9.6 TH/MM3 (1.8-7.7); BASOPHIL # 0.1 TH/MM3 (0-0.2); BASOPHIL % 0.9 % (0.0-2.0); EOSINOPHIL # 0.1 TH/MM3 (0-0.4); EOSINOPHIL % 1.1 % (0.0-4.0); HEMATOCRIT 30.5 % (35.0-46.0); HEMO FLAGS DIFF FINAL; LYMPH % 10.6 % (9.0-44.0); LYMPHOCYTE # 1.2 TH/MM3 (1.0-4.8); MEAN CELL VOLUME 87.7 FL (80.0-100.0); MEAN CORPUSCULAR HEMOGLOBIN 29.5 PG (27.0-34.0); MEAN CORPUSCULAR HGB CONC 33.7 % (32.0-36.0); MONO % 5.5 % (0.0-8.0); NEUT % 81.9 % (16.0-70.0); PLATELET COUNT 127 TH/MM3 (150-450); RED BLOOD COUNT 3.48 MIL/MM3 (4.00-5.30); RED CELL DISTRIBUTION WIDTH 18.4 % (11.6-17.2); WHITE BLOOD COUNT 11.7 TH/MM3 (4.0-11.0)
[2017-04-06 09:03] LABS: APTT (PATIENT) 58.1 SEC (24.3-30.1)
--- NOTE | 2017-04-06 11:26 | HHI.NPPN ---
Subjective History of Present Illness 76 Year old W Female with ARF, Biliary Cirrhosis, streptococcus Viridans sepsis Additional Remarks Patient is alert, sitting on chair, not in distress, started eating better. Review of Systems General Constitutional: Fatigue Objective Data Data 04/05/17 04/06/17 18:59 06:59 Intake Total 121 ml 349 ml Output Total 3100 ml 500 ml Balance -2979 ml -151 ml Intake Oral 320 ml IV Total 121 ml 29 ml Output Urine Total 100 ml 500 ml Hemodialysis 3000 ml # Voids 1 # Bowel Movements 1 2 Vital Signs Date Time Temp Pulse Resp B/P Pulse Ox O2 Delivery O2 Flow Rate FiO2 04/06/17 08:15 Room Air 04/06/17 08:11 113 04/06/17 08:00 97.1 87 18 117/55 96 Manual Cuff/Auscultation 04/06/17 06:00 97.3 78 20 122/64 97 04/06/17 04:03 Room Air 04/06/17 00:00 Room Air 04/06/17 00:00 98.1 83 20 118/58 95 04/05/17 21:00 Room Air 04/05/17 20:00 72 04/05/17 20:00 70 20 116/56 95 04/05/17 15:50 98.1 95 20 145/68 95 04/05/17 12:40 97.5 105 20 125/74 95 -: 04/06/17 0813 04/05/17 0640 Physical Exam General Appearance: No Acute Distress, Comfortable, Anxious Neck Neck Exam: Neck Supple Pulmonary Resp Exam: Breath Sounds Equal, No Distress, Rhonchi, Decreased Bases Cardiology CV Exam: Irregular Gastrointestinal/Abdomen GI Exam: Soft, Non-Tender, Bowel Sounds Present Extremeties Extremities Exam: Moderate Edema Neurologic Neuro Exam: Alert, Awake, Oriented Psychiatric Psych Exam: Appropriate Responses Assessment/Plan Problem List: (1) Acute renal failure Plan: This is ARF, edema persists Non oliguric, on Bumex. 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 Check Coag in AM. Urine out put is better and Creatinine improving. Possibly has some renal recovery. Dr. Peng will follow from AM and decide about PermCath. 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
[2017-04-06] MEDS: cefTRIAXone INJ 2,000 MG in SODIUM CHLORIDE 0.9% INJ 100 ML IV SCH (11:45)
--- NOTE | 2017-04-06 12:29 | HHI.PR ---
Subjective Remarks Follow up for endocarditis, bacteremia, diarrhea. The patient is awake, alert, sitting upright in bedside recliner. She is complaining of IV site at right forearm becoming more swollen. She reports her diarrhea is improving, only 2 episodes overnight and today. Denies any abdominal pain, nausea, or vomiting. Denies fevers or chills. Denies chest pain or shortness of breath. Does continue to have lower extremity swelling which she believes is unchanged. She has no other medical complaints at this time. Objective Vitals Vital Signs Date Time Temp Pulse Resp B/P Pulse Ox O2 Delivery O2 Flow Rate FiO2 04/06/17 12:00 97.3 84 18 119/69 94 04/06/17 11:44 66 04/06/17 08:15 Room Air 04/06/17 08:11 113 04/06/17 08:00 97.1 87 18 117/55 96 Manual Cuff/Auscultation 04/06/17 06:00 97.3 78 20 122/64 97 04/06/17 04:03 Room Air 04/06/17 00:00 Room Air 04/06/17 00:00 98.1 83 20 118/58 95 04/05/17 21:00 Room Air 04/05/17 20:00 72 04/05/17 20:00 70 20 116/56 95 04/05/17 15:50 98.1 95 20 145/68 95 04/05/17 12:40 97.5 105 20 125/74 95 I/O 04/05/17 04/05/17 04/05/17 04/06/17 04/06/17 04/06/17 07:00 15:00 23:00 07:00 15:00 23:00 Intake Total 497 ml 121 ml 134 ml 215 ml Output Total 400 ml 3100 ml 100 ml 400 ml Balance 97 ml -2979 ml 34 ml -185 ml Intake Oral 480 ml 120 ml 200 ml IV Total 17 ml 121 ml 14 ml 15 ml Output Urine Total 400 ml 100 ml 100 ml 400 ml Hemodialysis 3000 ml # Voids 1 # Bowel Movements 1 1 2 Result Diagram: 04/06/17 0813 04/05/17 0640 Imaging Last Impressions Upper Extremity Ultrasound 03/26/17 0000 Signed Impressions: Service Date/Time: Sunday, March 26, 2017 21:49 - CONCLUSION: Normal examination. Denton Parker Jr., MD Lower Extremity Ultrasound 03/26/17 Signed Impressions: Service Date/Time: Sunday, March 26, 2017 21:28 - CONCLUSION: 1. No DVT. 2. Subcutaneous edema involving both calves. Denton Parker Jr., MD Chest X-Ray 03/21/17 Signed Impressions: Service Date/Time: Tuesday, March 21, 2017 09:16 - CONCLUSION: Bibasilar opacities characteristic of pleural effusions with associated volume loss and/or consolidation. The perihilar interstitial opacities are suggestive of pulmonary edema. Reynaldo Higgins MD Catheter Placement X-Ray 03/21/17 Signed Impressions: Service Date/Time: Tuesday, March 21, 2017 14:31 - CONCLUSION: Uncomplicated line placement as above. Denton Parker Jr., MD Renal Ultrasound 03/18/17 Signed Impressions: Service Date/Time: Saturday, March 18, 2017 17:35 - CONCLUSION: 1. Echogenic kidneys bilaterally compatible with medical renal disease. 2. Small volume ascites Dimitrios Lopez MD Neck CTA 03/12/17 Signed Impressions: Service Date/Time: Sunday, March 12, 2017 20:22 - CONCLUSION: Slight atherosclerosis of both carotid bifurcations without narrowing. Dominant left vertebral artery. Reynaldo Lazar MD Head CTA 03/12/17 Signed Impressions: Service Date/Time: Sunday, March 12, 2017 20:22 - CONCLUSION: Normal intracranial arteries. Reynaldo Lazar MD Head CT 03/12/17 Signed Impressions: Service Date/Time: Sunday, March 12, 2017 19:02 - CONCLUSION: Negative noncontrast head CT. Reynaldo Lazar MD Objective Remarks GENERAL: Well-nourished, well-developed pleasant elderly female patient in [facility]. SKIN: Warm and dry. No rash. HEENT: Normocephalic. Atraumatic.Pupils equal and round. Mucous membranes pink and moist. NECK: Supple. Trachea midline. CARDIOVASCULAR: Regular rate and rhythm. 3/6 systolic murmur noted. RESPIRATORY: No accessory muscle use. Clear to auscultation. Breath sounds equal bilaterally. GASTROINTESTINAL: Abdomen soft, non-tender, nondistended. Normoactive bowel sounds x4. MUSCULOSKELETAL: No obvious deformities. 1+ BLE edema. NEUROLOGICAL: Awake and alert. No obvious cranial nerve deficits. Motor grossly within normal limits. Normal speech. PSYCHIATRIC: Appropriate mood and affect; insight and judgment normal. Medications and IVs Current Medications Medications (Trade) Dose Ordered Sig/Tunde Route Start Time Stop Time Status Last Admin (Narcan Inj) 0.4 mg UNSCH PRN IV 03/12/17 01:00 (Lipitor) 10 mg HS PO 03/12/17 21:00 04/05/17 21:14 (Synthroid) 75 mcg DAILY@06 PO 03/14/17 06:00 04/06/17 05:29 (NS Flush) DAILY IVF 03/13/17 09:00 04/01/17 08:32 (NS Flush) UNSCH PRN IVF 03/13/17 08:00 03/14/17 09:13 (NS Flush) 2 ml UNSCH PRN IV FLUSH 03/13/17 08:30 03/14/17 09:13 (NS Flush) 2 ml BID IV FLUSH 03/13/17 09:00 04/06/17 08:29 (Tylenol) 650 mg Q6H PRN PO 03/13/17 08:30 04/06/17 12:27 ([place] 5-325 Mg) 1 tab Q4H PRN PO 03/13/17 08:30 04/05/17 21:15 (Zofran Inj) 4 mg Q6H PRN IV 03/13/17 08:30 03/26/17 08:50 (Colace) 100 mg BID PO 03/13/17 09:00 04/02/17 08:25 Miscellaneous Information 1 Q361D XX 03/13/17 08:30 03/14/17 09:14 (Chlorhexidine 2% Cloth) 3 pack Taper DAILY@04 TOP 03/14/17 04:00 03/10/18 03:59 04/02/17 04:00 (Chlorhexidine 2% Cloth) 3 pack UNSCH PRN TOP 03/13/17 08:30 Multivitamins 1 tab 1 tab DAILY PO 03/13/17 11:30 04/06/17 08:30 (Rocephin Inj/NS Inj) 100 ml @ 200 mls/hr Q24H IV 03/14/17 13:00 04/06/17 11:45 Patient Own Medication PT OWN MED: Ursod... BID PO 03/15/17 13:00 04/06/17 08:30 (Cardizem) 60 mg TID PO 03/19/17 18:00 04/06/17 11:45 (Oscal) 1,000 mg TID PO 03/20/17 09:00 04/06/17 11:45 Bumetanide 1 mg 1 mg BID@,18 IV PUSH 03/20/17 18:00 04/06/17 08:29 Sodium Chloride 1,000 ml @ 0 mls/hr Q0M PRN IV 03/21/17 11:22 04/05/17 11:41 Sodium Chloride 1,000 ml @ 200 mls/hr Q5H PRN IV 03/21/17 11:22 03/27/17 12:24 (NS 1000 ml Inj) 1,000 ml @ 0 mls/hr Q0M PRN IV 03/21/17 11:22 (Mannitol Inj) 12.5 gm UNSCH PRN IV 03/21/17 11:30 (Albumin 25% Inj) 25 gm UNSCH PRN IV 03/21/17 11:30 (NS Flush) 5 ml UNSCH PRN IV FLUSH 03/21/17 11:30 (Heparin Inj) UNSCH PRN .XX 03/21/17 11:30 03/27/17 12:25 (Gentamicin (Dialysis) Inj) 20 mg UNSCH PRN IV 03/21/17 11:30 04/05/17 11:41 (Zofran Inj) 4 mg UNSCH PRN IV 03/21/17 11:30 (Tylenol) 650 mg UNSCH PRN PO 03/21/17 11:30 (Benadryl) 25 mg UNSCH PRN PO 03/21/17 11:30 (Nitrostat Sl) 0.4 mg UNSCH PRN SL 03/21/17 11:30 (Catapres) 0.1 mg UNSCH PRN PO 03/21/17 11:30 (Epogen Inj) 4,000 units UNSCH PRN IV 03/21/17 11:30 04/03/17 11:35 (Gelfoam 12 Mm/7 Mm Top) 1 foam UNSCH PRN TOP 03/21/17 11:30 (NS Flush) UNSCH PRN IVF 03/21/17 15:00 (D50w (Vial) Inj) 25 ml UNSCH PRN IV PUSH 03/23/17 11:00 (Glucagon Inj) 1 mg UNSCH PRN OTHER 03/23/17 11:00 (Levemir Inj) 10 units HS SQ 03/24/17 21:00 04/05/17 21:21 (Protonix) 40 mg DAILY PO 03/24/17 11:00 04/06/17 08:30 Calcium Carbonate 500 mg 500 mg Q8HR PRN CHEW 03/24/17 11:00 03/24/17 11:01 (Novastan Inj/NS 250 ml Inj) 250 ml @ 0 mls/hr TITRATE IV 03/30/17 19:45 04/05/17 05:19 (Sage Joaquina) 1 lozenge Q1H PRN BUCCAL 03/31/17 09:00 (KCl) 20 meq Q12HR PO 03/31/17 21:00 04/06/17 08:30 (Aldactone) 25 mg DAILY PO 04/01/17 13:30 04/06/17 08:30 (Ativan) 0.5 mg Q6H PRN PO 04/02/17 00:00 04/03/17 18:53 (Senokot) 17.2 mg Q12H PRN PO 04/06/17 21:00 (Imodium) 2 mg Q6H PRN PO 04/06/17 13:00 Date of Insertion: Mar 13, 2017 Line: Central Venous Catheter Side: Right Location: Internal, Jugular A/P Problem List: (1) Prosthetic valve endocarditis ICD Code: T82.6XXA Status: Acute (2) Atrial flutter with rapid ventricular response ICD Code: I48.92 Status: Acute (3) Thrombocytopenia ICD Code: D69.6 Status: Chronic (4) Hypokalemia ICD Code: E87.6 Status: Acute (5) HIT (heparin-induced thrombocytopenia) ICD Code: D75.82 Status: Acute Assessment and Plan 76 yrs old female with history of severe aortic stenosis s/p AVR w/bovine valve , primary biliary cirrhosis, diabetes mellitus, presented to the ED on 03/11 secondary to fatigue/weakness, found to have bacteremia with infective endocarditis. Infective Endocarditis at Prosthetic Valve: Culture +Strep Bacteremia (Strep V). -ID consulted -Continue IV Rocephin until 04/25 -Repeat cultures negative to date -Cardiology ff NATALIA: Cr as high as 3.78, baseline 0.9 February2017 -Nephrology consulted, patient continues to receive hemodialysis -plan is for PermCath placement on Friday, 04/07 -currently coumadin on hold for procedure, will need to bridge back to coumadin once PermCath is in place. -continue Bumex and Aldactone, fluid restrictions and renal diet. INR is 2.9, repeat in am A-fib with RVR - Controlled on a Diltiazem PO, needs anticoagulation, cardiology following Anemia and thrombocytopenia-HIT, CHAPO positive, argatroban per oncology, bridge back to Coumadin after PermCath placement Hyperlipidemia-continue statins Biliary Cirrhosis, stage IV-continue Bumex and Lasix, continue Mckenna DM2-continue long-acting Levemir and sliding scale insulin, diabetic diet Hypothyroidism-Continue supplementation GERD/Hiatal Hernia-Continue PPI Heparin induced Thrombocytopenia + CHAPO. Currently on Argatroban and platelet count>[id number], Coumadin on hold for PermCath placement. Diarrhea-improving. C. difficile PCR negative. Imodium prn. DVT Prophylaxis: SCDs, restart Coumadin after PermCath placed Libra Villagran PA-C April 06, 2017 12:29 pm
[2017-04-06 12:56] LABS: HEMOGLOBIN A1a 0.9 %; HEMOGLOBIN A1b 1.7 %; HEMOGLOBIN Ao 84.1 %; HEMOGLOBIN LA1C 2.2 %; HEMOGLOBIN P3 5.6 %
[2017-04-06] MEDS: ATORVASTATIN 10 MG TAB PO SCH (20:32)
[2017-04-06] MEDS: ACETAMINOPHEN/HYDROcodone 325 MG/5 MG TAB PO PRN (20:33)
[2017-04-06] MEDS: INSULIN DETEMIR 100 UNITS/ML VIAL SQ SCH (20:46)
[2017-04-06] MEDS ORDERED: SENNOSIDES 8.6 MG TAB PO PRN (21:00)
[2017-04-07] VITALS (11 sets, daily range): BP systolic 109–137; BP diastolic 58–82; PULSE 65–109; RESP 16–20; TEMP 97.8–99.3; O2SAT 94–97
[2017-04-07] MEDS: CHLORHEXIDINE GLUCONATE 2 % 1 PACK (2 CLOTHS) TOP SCH (04:00)
[2017-04-07] MEDS: LEVOTHYROXINE SODIUM 75 MCG TAB PO SCH (05:48)
[2017-04-07] MEDS: INSULIN ASPART SUPPLEMENTAL SCALE SQ SCH ×5 (05:51→21:33)
[2017-04-07] MEDS: POTASSIUM CHLORIDE 20 MEQ CONTROLLED RELEASE TAB PO SCH ×2 (09:00→21:02)
[2017-04-07] MEDS: BUMETANIDE INJ 1 MG/4 ML VIAL IV PUSH SCH ×2 (09:00→17:23)
[2017-04-07] MEDS: DILTIAZEM HCL 60 MG TAB PO SCH ×3 (09:00→17:22)
[2017-04-07] MEDS: URSODIOL PO SCH ×2 (09:00→21:03)
[2017-04-07] MEDS: PANTOPRAZOLE SOD 40 MG DELAYED RELEASE TAB PO SCH (09:00)
[2017-04-07] MEDS: CALCIUM CARBONATE 1.25 GM (CA 500 MG) TAB PO SCH ×3 (09:00→17:22)
[2017-04-07] MEDS: MULTIVITAMIN TAB PO SCH (09:00)
[2017-04-07] MEDS: SODIUM CHLORIDE 0.9% FLUSH 10 ML FLUSH IVF SCH (09:00)
[2017-04-07] MEDS: DOCUSATE SODIUM 100 MG CAP PO SCH ×2 (09:00→21:00)
[2017-04-07] MEDS: SPIRONOLACTONE 25 MG TAB PO SCH (09:00)
[2017-04-07 09:08] LABS: AUTOMATED NEUTROPHIL # 10.3 TH/MM3 (1.8-7.7); BASOPHIL # 0.1 TH/MM3 (0-0.2); EOSINOPHIL # 0.2 TH/MM3 (0-0.4); EOSINOPHIL % 1.2 % (0.0-4.0); HEMATOCRIT 31.5 % (35.0-46.0); HEMO FLAGS DIFF FINAL; LYMPHOCYTE # 0.9 TH/MM3 (1.0-4.8); MEAN CELL VOLUME 87.2 FL (80.0-100.0); MEAN CORPUSCULAR HEMOGLOBIN 28.3 PG (27.0-34.0); MEAN CORPUSCULAR HGB CONC 32.4 % (32.0-36.0); MONO % 5.6 % (0.0-8.0); NEUT % 85.2 % (16.0-70.0); PLATELET COUNT 120 TH/MM3 (150-450); RED BLOOD COUNT 3.61 MIL/MM3 (4.00-5.30); RED CELL DISTRIBUTION WIDTH 17.7 % (11.6-17.2); WHITE BLOOD COUNT 12.2 TH/MM3 (4.0-11.0)
[2017-04-07 09:13] LABS: INTERNATIONAL NORMALIZED RATIO 2.6 RATIO; PROTHROMBIN TIME - PATIENT 30.2 SEC (9.8-11.6)
[2017-04-07 10:47] LABS: INTERNATIONAL NORMALIZED RATIO 2.3 RATIO; PROTHROMBIN TIME - PATIENT 26.7 SEC (9.8-11.6)
[2017-04-07 11:00] LABS: BICARBONATE 29.5 MEQ/L (21.0-32.0); POTASSIUM 4.3 MEQ/L (3.5-5.1)
[2017-04-07] MEDS: ONDANSETRON HCL 4 MG/2 ML VIAL IV PRN (11:31)
--- NOTE | 2017-04-07 11:40 | PD.ONC.PN ---
Subjective Subjective Remarks Afebrile overnight. Patient resting comfortably without complaint. No bleeding. Waiting to go down for perma-cath placement. Objective Data Date Time Temp Pulse Resp B/P Pulse Ox O2 Delivery O2 Flow Rate FiO2 04/07/17 08:37 98.0 97 18 117/82 97 04/07/17 04:00 Room Air 04/07/17 04:00 98.0 79 18 137/63 94 04/07/17 00:00 99.3 69 18 124/58 94 04/07/17 00:00 Room Air 04/06/17 20:00 67 04/06/17 20:00 98.2 72 18 98/63 97 04/06/17 20:00 Room Air 04/06/17 16:00 98.0 74 18 137/60 96 04/06/17 16:00 Room Air 04/06/17 12:00 Room Air 04/06/17 12:00 97.3 84 18 119/69 94 04/06/17 11:44 66 04/07/17 04/07/17 04/07/17 06:59 14:59 22:59 Intake Total 113 ml Output Total 200 ml Balance -87 ml Result Diagram: 04/07/17 0800 04/07/17 1025 Laboratory Results Laboratory Tests Test 04/07/17 04/07/17 08:00 10:25 White Blood Count 12.2 TH/MM3 Red Blood Count 3.61 MIL/MM3 Hemoglobin 10.2 GM/DL Hematocrit 31.5 % Mean Corpuscular Volume 87.2 FL Mean Corpuscular Hemoglobin 28.3 PG Mean Corpuscular Hemoglobin 32.4 % Concent Red Cell Distribution Width 17.7 % Platelet Count 120 TH/MM3 Mean Platelet Volume 7.9 FL Neutrophils (%) (Auto) 85.2 % Lymphocytes (%) (Auto) 7.0 % Monocytes (%) (Auto) 5.6 % Eosinophils (%) (Auto) 1.2 % Basophils (%) (Auto) 1.0 % Neutrophils # (Auto) 10.3 TH/MM3 Lymphocytes # (Auto) 0.9 TH/MM3 Monocytes # (Auto) 0.7 TH/MM3 Eosinophils # (Auto) 0.2 TH/MM3 Basophils # (Auto) 0.1 TH/MM3 CBC Comment DIFF FINAL Differential Comment Prothrombin Time 30.2 SEC 26.7 SEC Prothromb Time International 2.6 RATIO 2.3 RATIO Ratio Activated Partial 50.0 SEC Thromboplast Time Sodium Level 133 MEQ/L Potassium Level 4.3 MEQ/L Chloride Level 95 MEQ/L Carbon Dioxide Level 29.5 MEQ/L Anion Gap 9 MEQ/L Blood Urea Nitrogen 23 MG/DL Creatinine 2.06 MG/DL Estimat Glomerular Filtration 23 ML/MIN Rate Random Glucose 156 MG/DL Calcium Level 8.9 MG/DL Administered Medications Medications (Trade) Dose Ordered Sig/Tunde Route PRN Reason Start Time Stop Time Status Last Admin Dose Admin Atorvastatin Calcium (Lipitor) 10 mg HS PO 03/12/17 21:00 04/06/17 20:32 Levothyroxine Sodium (Synthroid) 75 mcg DAILY@06 PO 03/14/17 06:00 04/07/17 05:48 Sodium Chloride (NS Flush) DAILY IVF 03/13/17 09:00 04/01/17 08:32 Sodium Chloride (NS Flush) UNSCH PRN IVF SEE PROTOCOL 03/13/17 08:00 03/14/17 09:13 Sodium Chloride (NS Flush) 2 ml UNSCH PRN IV FLUSH FLUSH AFTER USING IV ACCESS 03/13/17 08:30 03/14/17 09:13 Sodium Chloride (NS Flush) 2 ml BID IV FLUSH 03/13/17 09:00 04/06/17 20:34 Acetaminophen (Tylenol) 650 mg Q6H PRN PO PAIN 1-2 AND/OR FEVER >101F 03/13/17 08:30 04/06/17 23:58 Acetaminophen/ Hydrocodone Bitart ([place] 5-325 Mg) 1 tab Q4H PRN PO PAIN SCALE 3 TO 5 03/13/17 08:30 04/06/17 20:33 Ondansetron HCl (Zofran Inj) 4 mg Q6H PRN IV NAUSEA OR VOMITING 03/13/17 08:30 03/26/17 08:50 Docusate Sodium (Colace) 100 mg BID PO 03/13/17 09:00 04/02/17 08:25 Miscellaneous Information 1 Q361D XX 03/13/17 08:30 03/14/17 09:14 Chlorhexidine Gluconate (Chlorhexidine 2% Cloth) Taper DAILY@04 TOP 03/14/17 04:00 03/10/18 03:59 04/02/17 04:00 Multivitamins 1 tab 1 tab DAILY PO 03/13/17 11:30 04/06/17 08:30 Ceftriaxone Sodium/Sodium Chloride (Rocephin Inj/NS Inj) 100 ml @ 200 mls/hr Q24H IV 03/14/17 13:00 04/06/17 11:45 Patient Own Medication PT OWN MED: Ursod... BID PO 03/15/17 13:00 04/06/17 20:33 Diltiazem HCl (Cardizem) 60 mg TID PO 03/19/17 18:00 04/06/17 17:00 Calcium Carbonate (Oscal) 1,000 mg TID PO 03/20/17 09:00 04/06/17 16:58 Bumetanide 1 mg 1 mg BID@09,18 IV PUSH 03/20/17 18:00 04/06/17 16:59 Sodium Chloride 1,000 ml @ 0 mls/hr Q0M PRN IV For Prime & Rinse Back 03/21/17 11:22 04/05/17 11:41 Sodium Chloride (NS 1000 ml Inj) 1,000 ml @ 200 mls/hr Q5H PRN IV WITH DIALYSIS 03/21/17 11:22 03/27/17 12:24 Heparin Sodium (Porcine) (Heparin Inj) UNSCH PRN .XX WITH DIALYSIS 03/21/17 11:30 03/27/17 12:25 Gentamicin Sulfate (Gentamicin (Dialysis) Inj) 20 mg UNSCH PRN IV WITH DIALYSIS 03/21/17 11:30 04/05/17 11:41 Epoetin Derrell (Epogen Inj) 4,000 units UNSCH PRN IV WITH DIALYSIS 03/21/17 11:30 04/03/17 11:35 Insulin Detemir (Levemir Inj) 10 units HS SQ 03/24/17 21:00 04/06/17 20:46 Pantoprazole Sodium (Protonix) 40 mg DAILY PO 03/24/17 11:00 04/06/17 08:30 Calcium Carbonate 500 mg 500 mg Q8HR PRN CHEW HEARTBURN 03/24/17 11:00 03/24/17 11:01 Argatroban/Sodium Chloride (Novastan Inj/NS 250 ml Inj) 250 ml @ 0 mls/hr TITRATE IV 03/30/17 19:45 04/05/17 05:19 Potassium Chloride (KCl) 20 meq Q12HR PO 03/31/17 21:00 04/06/17 20:32 Spironolactone (Aldactone) 25 mg DAILY PO 04/01/17 13:30 04/06/17 08:30 Lorazepam (Ativan) 0.5 mg Q6H PRN PO anxiety 04/02/17 00:00 04/03/17 18:53 Objective Remarks GENERAL: Elderly female, sitting up in bed in nad. SKIN: Warm and dry. HEAD: Normocephalic. EYES: No injection or drainage. NECK: Supple, trachea midline.. CARDIOVASCULAR: Regular rate and rhythm RESPIRATORY: Breath sounds equal bilaterally. No accessory muscle use. GASTROINTESTINAL: Abdomen soft, non-tender, nondistended. MUSCULOSKELETAL: No cyanosis NEURO: awake and alert, normal speech. moving all extremities. Assessment/Plan Problem List: (1) Thrombocytopenia Status: Chronic Plan: -- +chronic thrombocytopenia for some time -- HIT positive -- Possibility of acquired von Willebrand deficiency from the prosthetic aortic valve Hx/Workup: Mrs. Jerome is a 76-year-old woman who presented with generalized weakness on 03/11/2017. She has a history of thrombocytopenia reported by the patient and her during her cataract surgery. Her platelet count on admission was 148,000. It continued to trend down. She is noted to have started heparin on 03/14 as well as March 17. She had gradual decrease of platelet count temporarily related to starting heparin protocol. Assessment 76 y/o female with thrombocytopenia. 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 hold Argatroban for four hours prior to perma-cath placement today. resume 1 hour after placement 2. start Coumadin this afternoon 3. monitor CBC Attending Statement Argatroban held 4 hours prior to procedure, no bleeding, t/2 45 minutes. Uncertain etiology INR 2.3 and 2.1, ptt not performed at the same time, ptt is manner to monitor Argatroban effect. Coumadin/Argatroban have ex vivo effect to prolong PT. Romy Oropeza April 07, 2017 11:40 Mojgan Mcginnis MD April 07, 2017 23:50
[2017-04-07] MEDS ORDERED: ceFAZolin 2 GM PREMIX 50 ML IV SCH (12:00)
[2017-04-07] MEDS ORDERED: VANCOMYCIN INJ 1,000 MG in SODIUM CHLOR 0.9% 250 ML INJ 250 ML IV SCH (12:00)
[2017-04-07] MEDS: SODIUM CHLORIDE 0.9% FLUSH 10 ML FLUSH IV FLUSH SCH ×2 (12:23→21:06)
[2017-04-07] MEDS ORDERED: LIDOCAINE 1%/EPINEPHrine 1:100,000 SOLN 20 ML VIAL ONE (13:13)
[2017-04-07] MEDS ORDERED: MIDAZOLAM HCL 5 MG/5 ML VIAL ONE (13:23)
[2017-04-07] MEDS ORDERED: fentaNYL CITRATE 250 MCG/5 ML AMP ONE (13:24)
--- NOTE | 2017-04-07 13:37 | HHI.NPPN ---
Subjective History of Present Illness 76 Year old W Female with ARF, Biliary Cirrhosis, streptococcus Viridans sepsis Additional Remarks Patient is alert, not in distress, started eating better. Review of Systems General Constitutional: Fatigue Objective Data Data 04/06/17 04/07/17 19:00 07:00 Intake Total 1084 ml 485 ml Output Total 400 ml 200 ml Balance 684 ml 285 ml Intake Oral 960 ml 460 ml IV Total 124 ml 25 ml Output Urine Total 400 ml 200 ml # Voids 0 # Bowel Movements 1 1 Vital Signs Date Time Temp Pulse Resp B/P Pulse Ox O2 Delivery O2 Flow Rate FiO2 04/07/17 12:04 98.0 98 18 133/68 96 04/07/17 08:37 98.0 97 18 117/82 97 04/07/17 04:00 Room Air 04/07/17 04:00 98.0 79 18 137/63 94 04/07/17 00:00 99.3 69 18 124/58 94 04/07/17 00:00 Room Air 04/06/17 20:00 67 04/06/17 20:00 98.2 72 18 98/63 97 04/06/17 20:00 Room Air 04/06/17 16:00 98.0 74 18 137/60 96 04/06/17 16:00 Room Air -: 04/07/17 0800 04/07/17 1025 Physical Exam General Appearance: No Acute Distress, Comfortable, Anxious Neck Neck Exam: Neck Supple Pulmonary Resp Exam: Breath Sounds Equal, No Distress, Rhonchi, Decreased Bases Cardiology CV Exam: Irregular Gastrointestinal/Abdomen GI Exam: Soft, Non-Tender, Bowel Sounds Present Extremeties Extremities Exam: Moderate Edema Neurologic Neuro Exam: Alert, Awake, Oriented Psychiatric Psych Exam: Appropriate Responses Assessment/Plan Problem List: (1) Acute renal failure Plan: This is ARF, edema persists Non oliguric, on Bumex. 1 Aldactone 25 mg daily hemodialysis on Friday getting PermCath HIT pos. Urine out put is better and Creatinine improving. Possibly has some renal recovery. 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
[2017-04-07 14:12] LABS: INTERNATIONAL NORMALIZED RATIO 2.1 RATIO; PROTHROMBIN TIME - PATIENT 24.5 SEC (9.8-11.6)
--- NOTE | 2017-04-07 16:14 | PD.RAD ---
Post Procedure Progress Note Pre Procedure Diagnosis: (1) Acute renal failure Post Procedure Diagnosis: (1) Acute renal failure Procedure Date: April 07, 2017 Supervising Radiologist: Reynaldo Kasper Proceduralist/Assist: RT Nathan(R)() Anesthesia: Local, Conscious Sedation Plan of Activity Patient to Unit: ROPU Patient Condition: Good See PACS Report for procedural detail/treatment Central Venous Access Device Procedure 1 Right Internal Jugular Hemodialysis Catheter Tunneled Placement dual lumen Welsh: 15 Additional Detail: 23 cm Sharma II permacath Reynaldo Kasper MD April 07, 2017 16:13
--- NOTE | 2017-04-07 16:41 | RADRPT ---
EXAM DATE/TIME: 04/07/2017 14:04 [facility] COMPARISON: No previous studies available for comparison. INDICATIONS : Patient with acute renal failure. Having Vas Cath exchanged to Permcath. MEDICAL HISTORY : 1. Endocarditis 2. Afib 3. HLD 4. HTN 5. DM 6. CHF 7. Biliary cirrhosis 8. GERD SURGICAL HISTORY : 1. Aortic valve replacement 2. Appendectomy 3. Cholecystectomy 4. vein stripping ENCOUNTER: Initial ACUITY: 3 weeks PAIN SCORE: 0/10 FLUORO TIME: 1.5 minutes IMAGE SERIES: 1 SEDATION TIME: 30 minutes MEDICATION(S): 1.) 2.5 mg midazolam (Versed) IV 2.) 125 mcg Fentanyl (Sublimaze) IV Prophylactic antibiotics were administered with appropriate pre-procedure timing. DEVICE(S): 1.) 15 fr yepez cath 23 cm TECHNIQUE: The patient was placed supine on the fluoroscopy table. The existing right jugul ar Vas-Cath was prepped with surrounding skin as a sterile field. Full sterile technique was used, in cluding cap, mask, sterile gloves and gown and a large sterile sheet. Hand hygiene and 2% chlorhexidi ne and/or betadine/alcohol prep was utilized per protocol for cutaneous antisepsis. The skin and subc utaneous tissues were infiltrated with lidocaine solution. Under direct fluoroscopic guidance a stiff hydrophilic guidewire was introduced through the Vas-Cath and manipulated into the inferior vena cav a to maintain good stable access. A subcutaneous tract was created from the upper chest to the venoto my site. The Vas-Cath was removed and a valved peel-away sheath was introduced to the SVC. A 23 cm Ca nnon II hemodialysis permacath was inserted and positioned under direct fluoroscopic guidance at the cava-atrial junction level. The catheter was fed retrograde through the subcutaneous tract. The ganesh ter was cut to the appropriate length and the hub apparatus attached. The catheter was flushed and lo cked with heparin per protocol. The catheter was secured with Prolene suture. The venotomy site was d ressed with Steri-Strips. The patient tolerated the procedure well and was taken to the recovery area in stable condition. CONCLUSION: Uncomplicated exchange of Vas-Cath for hemodialysis permacath with fluoroscopic sheryl nce as above. The catheter can be used immediately. Reynaldo Kasper MD on April 07, 2017 at 16:39 Board Certified Radiologist. This report was verified electronically.
[2017-04-07] MEDS: cefTRIAXone INJ 2,000 MG in SODIUM CHLORIDE 0.9% INJ 100 ML IV SCH (17:22)
--- NOTE | 2017-04-07 17:29 | HHI.PR ---
Subjective Remarks Follow up for endocarditis, bacteremia, HIT, diarrhea. RN reported patient's upset earlier today, seen by Dr. Brito while patient undergoing procedure. Extensive discussion regarding diagnosis and plan of care. All questions answered. much happier after conversation. Patient seen after PermCath placement later this afternoon. The patient is seen and examined with Dr. Brito. She has no specific medical complaints. Diarrhea continues to improve, 2 episodes today. Denies any chest pain, shortness of breath, abdominal pain, nausea/vomiting. She is hoping to go home later this week. Objective Vitals Vital Signs Date Time Temp Pulse Resp B/P Pulse Ox O2 Delivery O2 Flow Rate FiO2 04/07/17 16:18 98.0 102 18 136/59 97 04/07/17 14:50 90 20 118/63 95 04/07/17 14:25 81 18 109/65 95 04/07/17 14:10 97.9 109 16 113/71 96 04/07/17 12:04 98.0 98 18 133/68 96 04/07/17 08:37 98.0 97 18 117/82 97 04/07/17 04:00 Room Air 04/07/17 04:00 98.0 79 18 137/63 94 04/07/17 00:00 99.3 69 18 124/58 94 04/07/17 00:00 Room Air 04/06/17 20:00 67 04/06/17 20:00 98.2 72 18 98/63 97 04/06/17 20:00 Room Air I/O 04/06/17 04/06/17 04/06/17 04/07/17 04/07/17 04/07/17 07:00 15:00 23:00 07:00 15:00 23:00 Intake Total 215 ml 1084 ml 372 ml 113 ml 240 ml Output Total 400 ml 400 ml 200 ml Balance -185 ml 684 ml 372 ml -87 ml 240 ml Intake Oral 200 ml 960 ml 360 ml 100 ml 240 ml IV Total 15 ml 124 ml 12 ml 13 ml Output Urine Total 400 ml 400 ml 200 ml # Voids 0 2 # Bowel Movements 2 1 0 1 2 Result Diagram: 04/07/17 0800 04/07/17 1025 Imaging Last Impressions Catheter Placement X-Ray 04/07/17 0700 Signed Impressions: Service Date/Time: Friday, April 07, 2017 14:04 - CONCLUSION: Uncomplicated exchange of Vas-Cath for hemodialysis permacath with fluoroscopic guidance as above. The catheter can be used immediately. Reynaldo Kasper MD Upper Extremity Ultrasound 03/26/17 Signed Impressions: Service Date/Time: Sunday, March 26, 2017 21:49 - CONCLUSION: Normal examination. Denton Parker Jr., MD Lower Extremity Ultrasound 03/26/17 Signed Impressions: Service Date/Time: Sunday, March 26, 2017 21:28 - CONCLUSION: 1. No DVT. 2. Subcutaneous edema involving both calves. Denton Parker Jr., MD Chest X-Ray 03/21/17 Signed Impressions: Service Date/Time: Tuesday, March 21, 2017 09:16 - CONCLUSION: Bibasilar opacities characteristic of pleural effusions with associated volume loss and/or consolidation. The perihilar interstitial opacities are suggestive of pulmonary edema. Reynaldo Higgins MD Renal Ultrasound 03/18/17 Signed Impressions: Service Date/Time: Saturday, March 18, 2017 17:35 - CONCLUSION: 1. Echogenic kidneys bilaterally compatible with medical renal disease. 2. Small volume ascites Dimitrios Lopez MD Neck CTA 03/12/17 Signed Impressions: Service Date/Time: Sunday, March 12, 2017 20:22 - CONCLUSION: Slight atherosclerosis of both carotid bifurcations without narrowing. Dominant left vertebral artery. Reynaldo Lazar MD Head CTA 03/12/17 Signed Impressions: Service Date/Time: Sunday, March 12, 2017 20:22 - CONCLUSION: Normal intracranial arteries. Reynaldo Lazar MD Head CT 03/12/17 Signed Impressions: Service Date/Time: Sunday, March 12, 2017 19:02 - CONCLUSION: Negative noncontrast head CT. Reynaldo Lazar MD Objective Remarks GENERAL: Well-nourished, well-developed pleasant elderly female patient in [facility]. SKIN: Warm and dry. No rash. HEENT: Normocephalic. Atraumatic.Pupils equal and round. Mucous membranes pink and moist. NECK: Supple. Trachea midline. CARDIOVASCULAR: Irregularly irregular. 3/6 systolic murmur noted. RESPIRATORY: No accessory muscle use. Clear to auscultation. Breath sounds equal bilaterally. GASTROINTESTINAL: Abdomen soft, non-tender, nondistended. Normoactive bowel sounds x4. MUSCULOSKELETAL: No obvious deformities. 1+ BLE edema. NEUROLOGICAL: Awake and alert. No obvious cranial nerve deficits. Motor grossly within normal limits. Normal speech. PSYCHIATRIC: Appropriate mood and affect; insight and judgment normal. Procedures Right IJ, permacath, lumbar puncture, DORIE Medications and IVs Current Medications Medications (Trade) Dose Ordered Sig/Tunde Route Start Time Stop Time Status Last Admin (Narcan Inj) 0.4 mg UNSCH PRN IV 03/12/17 01:00 (Lipitor) 10 mg HS PO 03/12/17 21:00 04/06/17 20:32 (Synthroid) 75 mcg DAILY@06 PO 03/14/17 06:00 04/07/17 05:48 (NS Flush) DAILY IVF 03/13/17 09:00 04/01/17 08:32 (NS Flush) UNSCH PRN IVF 03/13/17 08:00 03/14/17 09:13 (NS Flush) 2 ml UNSCH PRN IV FLUSH 03/13/17 08:30 03/14/17 09:13 (NS Flush) 2 ml BID IV FLUSH 03/13/17 09:00 04/07/17 12:23 (Tylenol) 650 mg Q6H PRN PO 03/13/17 08:30 04/06/17 23:58 ([place] 5-325 Mg) 1 tab Q4H PRN PO 03/13/17 08:30 04/06/17 20:33 (Zofran Inj) 4 mg Q6H PRN IV 03/13/17 08:30 04/07/17 11:31 (Colace) 100 mg BID PO 03/13/17 09:00 04/02/17 08:25 Miscellaneous Information 1 Q361D XX 03/13/17 08:30 03/14/17 09:14 (Chlorhexidine 2% Cloth) Taper DAILY@04 TOP 03/14/17 04:00 03/10/18 03:59 04/02/17 04:00 (Chlorhexidine 2% Cloth) 3 pack UNSCH PRN TOP 03/13/17 08:30 Multivitamins 1 tab 1 tab DAILY PO 03/13/17 11:30 04/06/17 08:30 (Rocephin Inj/NS Inj) 100 ml @ 200 mls/hr Q24H IV 03/14/17 13:00 04/06/17 11:45 Patient Own Medication PT OWN MED: Ursod... BID PO 03/15/17 13:00 04/06/17 20:33 (Cardizem) 60 mg TID PO 03/19/17 18:00 04/06/17 17:00 (Oscal) 1,000 mg TID PO 03/20/17 09:00 04/06/17 16:58 Bumetanide 1 mg 1 mg BID@,18 IV PUSH 03/20/17 18:00 04/06/17 16:59 Sodium Chloride 1,000 ml @ 0 mls/hr Q0M PRN IV 03/21/17 11:22 04/05/17 11:41 Sodium Chloride 1,000 ml @ 200 mls/hr Q5H PRN IV 03/21/17 11:22 03/27/17 12:24 (NS 1000 ml Inj) 1,000 ml @ 0 mls/hr Q0M PRN IV 03/21/17 11:22 (Mannitol Inj) 12.5 gm UNSCH PRN IV 03/21/17 11:30 (Albumin 25% Inj) 25 gm UNSCH PRN IV 03/21/17 11:30 (NS Flush) 5 ml UNSCH PRN IV FLUSH 03/21/17 11:30 (Heparin Inj) UNSCH PRN .XX 03/21/17 11:30 03/27/17 12:25 (Gentamicin (Dialysis) Inj) 20 mg UNSCH PRN IV 03/21/17 11:30 04/05/17 11:41 (Zofran Inj) 4 mg UNSCH PRN IV 03/21/17 11:30 (Tylenol) 650 mg UNSCH PRN PO 03/21/17 11:30 (Benadryl) 25 mg UNSCH PRN PO 03/21/17 11:30 (Nitrostat Sl) 0.4 mg UNSCH PRN SL 03/21/17 11:30 (Catapres) 0.1 mg UNSCH PRN PO 03/21/17 11:30 (Epogen Inj) 4,000 units UNSCH PRN IV 03/21/17 11:30 04/03/17 11:35 (Gelfoam 12 Mm/7 Mm Top) 1 foam UNSCH PRN TOP 03/21/17 11:30 (NS Flush) UNSCH PRN IVF 03/21/17 15:00 (D50w (Vial) Inj) 25 ml UNSCH PRN IV PUSH 03/23/17 11:00 (Glucagon Inj) 1 mg UNSCH PRN OTHER 03/23/17 11:00 (Levemir Inj) 10 units HS SQ 03/24/17 21:00 04/06/17 20:46 (Protonix) 40 mg DAILY PO 03/24/17 11:00 04/06/17 08:30 Calcium Carbonate 500 mg 500 mg Q8HR PRN CHEW 03/24/17 11:00 03/24/17 11:01 (Novastan Inj/NS 250 ml Inj) 250 ml @ 0 mls/hr TITRATE IV 03/30/17 19:45 04/05/17 05:19 ([place]) 1 lozenge Q1H PRN BUCCAL 03/31/17 09:00 (KCl) 20 meq Q12HR PO 03/31/17 21:00 04/06/17 20:32 (Aldactone) 25 mg DAILY PO 04/01/17 13:30 04/06/17 08:30 (Ativan) 0.5 mg Q6H PRN PO 04/02/17 00:00 04/03/17 18:53 (Senokot) 17.2 mg Q12H PRN PO 04/06/17 21:00 (Imodium) 2 mg Q6H PRN PO 04/06/17 13:00 Date of Insertion: Mar 13, 2017 Line: Central Venous Catheter Side: Right Location: Internal, Jugular A/P Problem List: (1) Prosthetic valve endocarditis ICD Code: T82.6XXA Status: Acute (2) Atrial flutter with rapid ventricular response ICD Code: I48.92 Status: Acute (3) Thrombocytopenia ICD Code: D69.6 Status: Chronic (4) Hypokalemia ICD Code: E87.6 Status: Acute (5) HIT (heparin-induced thrombocytopenia) ICD Code: D75.82 Status: Acute Assessment and Plan 76 yrs old female with history of severe aortic stenosis s/p AVR w/bovine valve , primary biliary cirrhosis, diabetes mellitus, presented to the ED on 03/11 secondary to fatigue/weakness, found to have bacteremia with infective endocarditis. Infective Endocarditis at Prosthetic Valve: Culture +Strep Bacteremia (Strep V). -ID consulted -Continue IV Rocephin until 04/25 -Repeat cultures negative to date -Cardiology ff -IV antibiotic infusion being arranged with [facility]: Cr as high as 3.78, baseline 0.9 February2017 -Nephrology consulted, patient continues to receive hemodialysis -PermCath placed on 04/07 -continue Bumex and Aldactone, fluid restrictions and renal diet. Monitor INR, currently 2.1 -currently coumadin on hold for procedure, on IV Argatroban, will need to bridge back to coumadin, will discuss with hematology A-fib with RVR - Controlled on a Diltiazem PO, plan for anticoagulation with Coumadin, Coumadin teaching booklet provided, cardiology following Anemia and heparin induced thrombocytopenia- CHAPO positive, on IV argatroban per hematology, bridge back to Coumadin when ok with heme. Monitor CBC Hyperlipidemia-continue statins Biliary Cirrhosis, stage IV-continue Bumex and Lasix, continue Mckenna DM2-continue long-acting Levemir and sliding scale insulin, A1c 6.5. Hyperglycemia secondary to renal diet will add ADA Hypothyroidism-Continue supplementation GERD/Hiatal Hernia-Continue PPI Diarrhea-improving. C. difficile PCR negative. Imodium prn. DVT Prophylaxis: SCDs, restart Coumadin when ok with hematology, on IV Argatroban for now Discussed with patient, patient's I spent 35 minutes [id number] with the patient or on the bennett discussing the patient's disposition, prognosis, and plan of care with her caregivers. Over half the time spent was devoted to counseling the patient regarding placement in coordinating care with caregivers and case management. Attending Statement The exam, history, and the medical decision-making described in the above note were completed with the assistance of the mid-level provider. I reviewed and agree with the findings presented. I attest that I had a [id number] encounter with the patient on the same day, and personally performed and documented my assessment and findings in the medical record. Follow-up for A. fib, hit and diabetes mellitus. Has no complaints. Seen with . Discussed with RN. Coumadin teaching provided A1c 6.5 Irregularly irregular Bilateral lower extremity edema A. fib with controlled ventricular response. Discussed with hematology, anticoagulation with argatroban secondary to HIT bridged with Coumadin Hyperglycemia secondary to renal diet. Add ADA. A1c 6.5 Libra Villagran PA-C April 07, 2017 17:29 Sreedhar Brito MD April 07, 2017 18:15
[2017-04-07] MEDS: SODIUM CHLOR 0.9% IV SCH (19:50)
[2017-04-07] MEDS: ARGATROBAN IV SCH (19:50)
[2017-04-07] MEDS: ATORVASTATIN 10 MG TAB PO SCH (21:02)
[2017-04-07] MEDS: ACETAMINOPHEN/HYDROcodone 325 MG/5 MG TAB PO PRN (21:04)
[2017-04-07] MEDS: INSULIN DETEMIR 100 UNITS/ML VIAL SQ SCH (21:21)
[2017-04-07 22:02] LABS: APTT (PATIENT) 41.4 SEC (24.3-30.1)
[2017-04-08] VITALS: BP 128/58; PULSE 74; RESP 18; TEMP 97.7; O2SAT 98
[2017-04-08 02:52] LABS: AUTOMATED NEUTROPHIL # 7.1 TH/MM3 (1.8-7.7); BASOPHIL % 0.5 % (0.0-2.0); EOSINOPHIL # 0.1 TH/MM3 (0-0.4); HEMATOCRIT 26.9 % (35.0-46.0); LYMPH % 8.4 % (9.0-44.0); LYMPHOCYTE # 0.7 TH/MM3 (1.0-4.8); MEAN CELL VOLUME 87.2 FL (80.0-100.0); MEAN CORPUSCULAR HEMOGLOBIN 29.5 PG (27.0-34.0); MEAN CORPUSCULAR HGB CONC 33.9 % (32.0-36.0); MONO % 5.1 % (0.0-8.0); PLATELET COUNT 95 TH/MM3 (150-450); RED BLOOD COUNT 3.09 MIL/MM3 (4.00-5.30); RED CELL DISTRIBUTION WIDTH 17.2 % (11.6-17.2); WHITE BLOOD COUNT 8.4 TH/MM3 (4.0-11.0)
[2017-04-08 02:54] LABS: HEMO FLAGS AUTO DIFF
[2017-04-08 03:02] LABS: APTT (PATIENT) 55.9 SEC (24.3-30.1)
[2017-04-08 03:23] LABS: ALT (GPT) 13 U/L (10-53); ANION GAP 5 MEQ/L (5-15); AST (GOT) 26 U/L (15-37); BICARBONATE 31.1 MEQ/L (21.0-32.0); BLOOD UREA NITROGEN 25 MG/DL (7-18); CHLORIDE 96 MEQ/L (98-107); GLOMERULAR FILTRATION RATE 23 ML/MIN (>89); POTASSIUM 4.6 MEQ/L (3.5-5.1); SODIUM (NA) 132 MEQ/L (136-145)
[2017-04-08 03:25] LABS: ALKALINE PHOSPHATASE 152 U/L (45-117)
[2017-04-08 03:56] LABS: OVALOCYTES 1+ (NORMAL); PLATELET ESTIMATE SMEAR LOW (NORMAL); PLATELET MORPHOLOGY NORMAL (NORMAL); SCAN/DIFF AUTO DIFF CONFIRMED
[2017-04-08 04:00] VITALS: BP 124/63; PULSE 78; RESP 18; TEMP 97.7; O2SAT 97
[2017-04-08] MEDS: CHLORHEXIDINE GLUCONATE 2 % 1 PACK (2 CLOTHS) TOP SCH (04:00)
[2017-04-08] MEDS: ACETAMINOPHEN 325 MG TAB PO PRN ×2 (04:24→13:11)
[2017-04-08] MEDS: LEVOTHYROXINE SODIUM 75 MCG TAB PO SCH (04:26)
[2017-04-08] MEDS: LOPERAMIDE HCL 2 MG CAP PO PRN ×2 (04:37→22:09)
[2017-04-08] MEDS: INSULIN ASPART SUPPLEMENTAL SCALE SQ SCH ×4 (05:44→22:07)
[2017-04-08 08:00] VITALS: BP 119/64; PULSE 77; PULSE 83; RESP 16; TEMP 97.9; O2SAT 96
[2017-04-08 09:00] LABS: APTT (PATIENT) 60.8 SEC (24.3-30.1)
[2017-04-08] MEDS: CALCIUM CARBONATE 1.25 GM (CA 500 MG) TAB PO SCH ×3 (09:00→18:42)
[2017-04-08] MEDS: URSODIOL PO SCH ×2 (09:00→22:04)
[2017-04-08] MEDS: DOCUSATE SODIUM 100 MG CAP PO SCH ×2 (09:00→21:00)
[2017-04-08] MEDS: BUMETANIDE INJ 1 MG/4 ML VIAL IV PUSH SCH ×2 (09:00→18:42)
[2017-04-08] MEDS: SODIUM CHLORIDE 0.9% FLUSH 10 ML FLUSH IVF SCH (09:00)
[2017-04-08] MEDS: DILTIAZEM HCL 60 MG TAB PO SCH ×3 (09:00→18:42)
[2017-04-08] MEDS: EPOETIN ALFA 10,000 UNITS/ML VIAL IV PRN (09:40)
[2017-04-08 10:12] LABS: INTERNATIONAL NORMALIZED RATIO 3.4 RATIO; PROTHROMBIN TIME - PATIENT 39.8 SEC (9.8-11.6)
--- NOTE | 2017-04-08 10:15 | HHI.NPPN ---
Subjective History of Present Illness 76 Year old W Female with ARF, Biliary Cirrhosis, streptococcus Viridans sepsis Additional Remarks Patient is alert, not in distress, started eating better. Review of Systems General Constitutional: Fatigue Objective Data Data 04/07/17 04/08/17 19:00 07:00 Intake Total 240 ml 35 ml Output Total 400 ml Balance 240 ml -365 ml Intake Oral 240 ml IV Total 35 ml Output Urine Total 400 ml # Voids 2 3 # Bowel Movements 2 1 Vital Signs Date Time Temp Pulse Resp B/P Pulse Ox O2 Delivery O2 Flow Rate FiO2 04/08/17 08:00 97.9 77 16 119/64 96 04/08/17 04:00 97.7 78 18 124/63 97 04/08/17 00:00 97.7 74 18 128/58 98 04/07/17 21:00 65 04/07/17 20:00 97.8 103 18 116/64 97 04/07/17 16:18 98.0 102 18 136/59 97 04/07/17 14:50 90 20 118/63 95 04/07/17 14:25 81 18 109/65 95 04/07/17 14:10 97.9 109 16 113/71 96 04/07/17 12:04 98.0 98 18 133/68 96 -: 04/08/17 0242 04/08/17 0242 Physical Exam General Appearance: No Acute Distress, Comfortable, Anxious Neck Neck Exam: Neck Supple Pulmonary Resp Exam: Breath Sounds Equal, No Distress, Rhonchi, Decreased Bases Cardiology CV Exam: Irregular Gastrointestinal/Abdomen GI Exam: Soft, Non-Tender, Bowel Sounds Present Extremeties Extremities Exam: Moderate Edema Neurologic Neuro Exam: Alert, Awake, Oriented Psychiatric Psych Exam: Appropriate Responses Assessment/Plan Problem List: (1) Acute renal failure Plan: This is ARF, edema persists Non oliguric, on Bumex. 1 Aldactone 25 mg daily hemodialysis post PermCath seen at treatment UF 3 L tolerating it well HIT pos. Urine out put is better and Creatinine improving. Possibly has some renal recovery. but due to edema and fluid accumulation with Liver disease likely need HD as out pt request set up (2) Streptococcal bacteremia Plan: Infectious disease is following she is on broad-spectrum antibiotic ceftriaxone (3) Atrial flutter with rapid ventricular response Plan: Off diltiazem (4) Biliary liver cirrhosis Plan: Follows with GI (5) Thrombocytopenia Plan: HIT positive Hematology fu Argatroban Problem Qualifiers (1) Acute renal failure: Qualified Code: N17.9 - Acute renal failure, unspecified acute renal failure type Molly Peng MD April 08, 2017 10:15
--- NOTE | 2017-04-08 11:24 | PD.ONC.PN ---
Subjective Subjective Remarks Afebrile overnight. Patient resting comfortably in dialysis. She tolerated perma-cath procedure yesterday and has not had any bleeding or swelling from perma-cath site. Objective Data Date Time Temp Pulse Resp B/P Pulse Ox O2 Delivery O2 Flow Rate FiO2 04/08/17 08:00 97.9 77 16 119/64 96 04/08/17 04:00 97.7 78 18 124/63 97 04/08/17 00:00 97.7 74 18 128/58 98 04/07/17 21:00 65 04/07/17 20:00 97.8 103 18 116/64 97 04/07/17 16:18 98.0 102 18 136/59 97 04/07/17 14:50 90 20 118/63 95 04/07/17 14:25 81 18 109/65 95 04/07/17 14:10 97.9 109 16 113/71 96 04/07/17 12:04 98.0 98 18 133/68 96 04/08/17 04/08/17 04/08/17 06:59 14:59 22:59 Intake Total 24 ml Balance 24 ml Result Diagram: 04/08/17 0242 04/08/17 0242 Laboratory Results Laboratory Tests Test 04/07/17 04/07/17 04/08/17 04/08/17 13:40 21:20 02:42 08:18 Prothrombin Time 24.5 SEC 39.8 SEC Prothromb Time International 2.1 RATIO 3.4 RATIO Ratio Activated Partial 41.4 SEC 55.9 SEC 60.8 SEC Thromboplast Time White Blood Count 8.4 TH/MM3 Red Blood Count 3.09 MIL/MM3 Hemoglobin 9.1 GM/DL Hematocrit 26.9 % Mean Corpuscular Volume 87.2 FL Mean Corpuscular Hemoglobin 29.5 PG Mean Corpuscular Hemoglobin 33.9 % Concent Red Cell Distribution Width 17.2 % Platelet Count 95 TH/MM3 Mean Platelet Volume 7.5 FL Neutrophils (%) (Auto) 85.0 % Lymphocytes (%) (Auto) 8.4 % Monocytes (%) (Auto) 5.1 % Eosinophils (%) (Auto) 1.0 % Basophils (%) (Auto) 0.5 % Neutrophils # (Auto) 7.1 TH/MM3 Lymphocytes # (Auto) 0.7 TH/MM3 Monocytes # (Auto) 0.4 TH/MM3 Eosinophils # (Auto) 0.1 TH/MM3 Basophils # (Auto) 0.0 TH/MM3 CBC Comment AUTO DIFF Differential Comment AUTO DIFF CONFIRMED Platelet Estimate LOW Platelet Morphology Comment NORMAL Ovalocytes 1+ Sodium Level 132 MEQ/L Potassium Level 4.6 MEQ/L Chloride Level 96 MEQ/L Carbon Dioxide Level 31.1 MEQ/L Anion Gap 5 MEQ/L Blood Urea Nitrogen 25 MG/DL Creatinine 2.11 MG/DL Estimat Glomerular Filtration 23 ML/MIN Rate Random Glucose 140 MG/DL Calcium Level 8.7 MG/DL Total Bilirubin 1.0 MG/DL Aspartate Amino Transf 26 U/L (AST/SGOT) Alanine Aminotransferase 13 U/L (ALT/SGPT) Alkaline Phosphatase 152 U/L Total Protein 5.6 GM/DL Albumin 2.0 GM/DL Administered Medications Medications (Trade) Dose Ordered Sig/Tunde Route PRN Reason Start Time Stop Time Status Last Admin Dose Admin Atorvastatin Calcium (Lipitor) 10 mg HS PO 03/12/17 21:00 04/07/17 21:02 Levothyroxine Sodium (Synthroid) 75 mcg DAILY@06 PO 03/14/17 06:00 04/08/17 04:26 Sodium Chloride (NS Flush) DAILY IVF 03/13/17 09:00 04/01/17 08:32 Sodium Chloride (NS Flush) UNSCH PRN IVF SEE PROTOCOL 03/13/17 08:00 03/14/17 09:13 Sodium Chloride (NS Flush) 2 ml UNSCH PRN IV FLUSH FLUSH AFTER USING IV ACCESS 03/13/17 08:30 03/14/17 09:13 Sodium Chloride (NS Flush) 2 ml BID IV FLUSH 03/13/17 09:00 04/07/17 21:06 Acetaminophen (Tylenol) 650 mg Q6H PRN PO PAIN 1-2 AND/OR FEVER >101F 03/13/17 08:30 04/08/17 04:24 Acetaminophen/ Hydrocodone Bitart ([place] 5-325 Mg) 1 tab Q4H PRN PO PAIN SCALE 3 TO 5 03/13/17 08:30 04/07/17 21:04 Ondansetron HCl (Zofran Inj) 4 mg Q6H PRN IV NAUSEA OR VOMITING 03/13/17 08:30 04/07/17 11:31 Docusate Sodium (Colace) 100 mg BID PO 03/13/17 09:00 04/02/17 08:25 Miscellaneous Information 1 Q361D XX 03/13/17 08:30 03/14/17 09:14 Chlorhexidine Gluconate (Chlorhexidine 2% Cloth) Taper DAILY@04 TOP 03/14/17 04:00 03/10/18 03:59 04/02/17 04:00 Multivitamins 1 tab 1 tab DAILY PO 03/13/17 11:30 04/06/17 08:30 Ceftriaxone Sodium/Sodium Chloride (Rocephin Inj/NS Inj) 100 ml @ 200 mls/hr Q24H IV 03/14/17 13:00 04/07/17 17:22 Patient Own Medication PT OWN MED: Ursod... BID PO 03/15/17 13:00 04/07/17 21:03 Diltiazem HCl (Cardizem) 60 mg TID PO 03/19/17 18:00 04/07/17 17:22 Calcium Carbonate (Oscal) 1,000 mg TID PO 03/20/17 09:00 04/07/17 17:22 Bumetanide 1 mg 1 mg BID@,18 IV PUSH 03/20/17 18:00 04/07/17 17:23 Sodium Chloride 1,000 ml @ 0 mls/hr Q0M PRN IV For Prime & Rinse Back 03/21/17 11:22 04/05/17 11:41 Sodium Chloride (NS 1000 ml Inj) 1,000 ml @ 200 mls/hr Q5H PRN IV WITH DIALYSIS 03/21/17 11:22 03/27/17 12:24 Heparin Sodium (Porcine) (Heparin Inj) UNSCH PRN .XX WITH DIALYSIS 03/21/17 11:30 03/27/17 12:25 Gentamicin Sulfate (Gentamicin (Dialysis) Inj) 20 mg UNSCH PRN IV WITH DIALYSIS 03/21/17 11:30 04/05/17 11:41 Epoetin Derrell (Epogen Inj) 4,000 units UNSCH PRN IV WITH DIALYSIS 03/21/17 11:30 04/08/17 09:40 Insulin Detemir (Levemir Inj) 10 units HS SQ 03/24/17 21:00 04/07/17 21:21 Pantoprazole Sodium (Protonix) 40 mg DAILY PO 03/24/17 11:00 04/06/17 08:30 Calcium Carbonate 500 mg 500 mg Q8HR PRN CHEW HEARTBURN 03/24/17 11:00 03/24/17 11:01 Argatroban/Sodium Chloride (Novastan Inj/NS 250 ml Inj) 250 ml @ 0 mls/hr TITRATE IV 03/30/17 19:45 04/07/17 19:50 Potassium Chloride (KCl) 20 meq Q12HR PO 03/31/17 21:00 04/07/17 21:02 Spironolactone (Aldactone) 25 mg DAILY PO 04/01/17 13:30 04/06/17 08:30 Lorazepam (Ativan) 0.5 mg Q6H PRN PO anxiety 04/02/17 00:00 04/03/17 18:53 Loperamide HCl (Imodium) 2 mg Q6H PRN PO diarrhea 04/06/17 13:00 04/08/17 04:37 Objective Remarks GENERAL: Elderly female, sitting up receiving dialysis SKIN: Warm and dry. perma-cath, right chest wall, site is clean there is no hematoma formation or bleeding. HEAD: Normocephalic. EYES: No injection or drainage. NECK: Supple, trachea midline.. CARDIOVASCULAR: +S1/S2 RESPIRATORY: Breath sounds equal bilaterally. No accessory muscle use. GASTROINTESTINAL: Abdomen soft, non-tender, nondistended. MUSCULOSKELETAL: No cyanosis NEURO: awake and alert, and oriented normal speech. moving all extremities. Assessment/Plan Problem List: (1) Thrombocytopenia Status: Chronic Plan: -- +chronic thrombocytopenia for some time -- HIT positive -- Possibility of acquired von Willebrand deficiency from the prosthetic aortic valve Hx/Workup: Mrs. Jerome is a 76-year-old woman who presented with generalized weakness on 03/11/2017. She has a history of thrombocytopenia reported by the patient and her during her cataract surgery. Her platelet count on admission was 148,000. It continued to trend down. She is noted to have started heparin on 03/14 as well as March 17. She had gradual decrease of platelet count temporarily related to starting heparin protocol. Assessment 76 y/o female with thrombocytopenia. 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 continue Argatroban bridge to coumadin 2. monitor CBC--expect platelets to begin rising again. slight dip from perma- cath placement yesterday 3. continue Argatroban and coumadin until INR>4. then hold Argatroban and recheck INR after four hours to ensure INR between 2-3 per protocol. Attending Statement The exam, history, and the medical decision-making described in the above note were completed with the assistance of the mid-level provider. I reviewed and agree with the findings presented. I attest that I had a [id number] encounter with the patient on the same day, and personally performed and documented my assessment and findings in the medical record. Pt seen and examined. Expressed her frustration yesterday. Discussed pic line placement tomorrow. Plan to stop Argatroban at 2AM, by 5 AM labs her PTT should reflect metabolism of the drug. By 8AM procedure time would give her an additional 3 hours to metabolize drug which has t/2 of 45 minutes. Pt should be able to have her pic line placement tomorrow. Romy Oropeza April 08, 2017 11:24 Mojgan Mcginnis MD April 08, 2017 19:56
[2017-04-08] MEDS: GENTAMICIN SULFATE (DIALYSIS USE ONLY) 20 MG/2 ML VIAL IV PRN (12:16)
[2017-04-08] MEDS: SPIRONOLACTONE 25 MG TAB PO SCH (13:11)
[2017-04-08] MEDS: MULTIVITAMIN TAB PO SCH (13:12)
[2017-04-08] MEDS: PANTOPRAZOLE SOD 40 MG DELAYED RELEASE TAB PO SCH (13:12)
[2017-04-08] MEDS: POTASSIUM CHLORIDE 20 MEQ CONTROLLED RELEASE TAB PO SCH ×2 (13:12→22:08)
[2017-04-08] MEDS: SODIUM CHLORIDE 0.9% FLUSH 10 ML FLUSH IV FLUSH SCH ×2 (13:13→21:00)
[2017-04-08] MEDS: cefTRIAXone INJ 2,000 MG in SODIUM CHLORIDE 0.9% INJ 100 ML IV SCH (13:13)
[2017-04-08] MEDS: ARGATROBAN OTHER SCH ×2 (14:31)
[2017-04-08] MEDS: SODIUM CHLORIDE 0.9% OTHER SCH ×2 (14:31)
--- NOTE | 2017-04-08 15:18 | HHI.PR ---
Subjective Remarks Follow-up diabetes mellitus. Patient doing well. No more diarrhea. Discussed with RN, patient needs PICC will clarify with nephrology. Also discussed with hematology to hold Coumadin for now while awaiting PICC. Seen with Objective Vitals Vital Signs Date Time Temp Pulse Resp B/P Pulse Ox O2 Delivery O2 Flow Rate FiO2 04/08/17 08:00 Room Air 04/08/17 08:00 97.9 77 16 119/64 96 04/08/17 04:00 97.7 78 18 124/63 97 04/08/17 00:00 97.7 74 18 128/58 98 04/07/17 21:00 65 04/07/17 20:00 97.8 103 18 116/64 97 04/07/17 16:18 98.0 102 18 136/59 97 I/O 04/07/17 04/07/17 04/07/17 04/08/17 04/08/17 04/08/17 06:59 14:59 22:59 06:59 14:59 22:59 Intake Total 113 ml 240 ml 11 ml 24 ml Output Total 200 ml 400 ml 3500 ml Balance -87 ml 240 ml -389 ml 24 ml -3500 ml Intake Oral 100 ml 240 ml IV Total 13 ml 11 ml 24 ml Output Urine Total 200 ml 400 ml Hemodialysis 3500 ml # Voids 2 2 1 # Bowel Movements 1 2 1 0 Result Diagram: 04/08/17 0242 04/08/17 0242 Imaging Last Impressions Catheter Placement X-Ray 04/07/17 0700 Signed Impressions: Service Date/Time: Friday, April 07, 2017 14:04 - CONCLUSION: Uncomplicated exchange of Vas-Cath for hemodialysis permacath with fluoroscopic guidance as above. The catheter can be used immediately. Reynaldo Kasper MD Upper Extremity Ultrasound 03/26/17 0000 Signed Impressions: Service Date/Time: Sunday, March 26, 2017 21:49 - CONCLUSION: Normal examination. Denton Parker Jr., MD Lower Extremity Ultrasound 03/26/17 0000 Signed Impressions: Service Date/Time: Sunday, March 26, 2017 21:28 - CONCLUSION: 1. No DVT. 2. Subcutaneous edema involving both calves. Denton Parker Jr., MD Chest X-Ray 03/21/17 0000 Signed Impressions: Service Date/Time: Tuesday, March 21, 2017 09:16 - CONCLUSION: Bibasilar opacities characteristic of pleural effusions with associated volume loss and/or consolidation. The perihilar interstitial opacities are suggestive of pulmonary edema. Reynaldo Higgins MD Renal Ultrasound 03/18/17 Signed Impressions: Service Date/Time: Saturday, March 18, 2017 17:35 - CONCLUSION: 1. Echogenic kidneys bilaterally compatible with medical renal disease. 2. Small volume ascites Dimitrios Lopez MD Neck CTA 03/12/17 Signed Impressions: Service Date/Time: Sunday, March 12, 2017 20:22 - CONCLUSION: Slight atherosclerosis of both carotid bifurcations without narrowing. Dominant left vertebral artery. Reynaldo Lazar MD Head CTA 03/12/17 Signed Impressions: Service Date/Time: Sunday, March 12, 2017 20:22 - CONCLUSION: Normal intracranial arteries. Reynaldo Lazar MD Head CT 03/12/17 Signed Impressions: Service Date/Time: Sunday, March 12, 2017 19:02 - CONCLUSION: Negative noncontrast head CT. Reynaldo Lazar MD Objective Remarks GENERAL: Well-nourished, well-developed pleasant elderly female patient in [facility]. SKIN: Warm and dry. No rash. HEENT: Normocephalic. Atraumatic.Pupils equal and round. Mucous membranes pink and moist. NECK: Supple. Trachea midline. CARDIOVASCULAR: Irregularly irregular. 3/6 systolic murmur noted. RESPIRATORY: No accessory muscle use. Clear to auscultation. Breath sounds equal bilaterally. GASTROINTESTINAL: Abdomen soft, non-tender, nondistended. Normoactive bowel sounds x4. MUSCULOSKELETAL: No obvious deformities. 1+ BLE edema. NEUROLOGICAL: Awake and alert. No obvious cranial nerve deficits. Motor grossly within normal limits. Normal speech. Nonfocal PSYCHIATRIC: Appropriate mood and affect; insight and judgment normal. 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 Infective Endocarditis at Prosthetic Valve: Culture +Strep Bacteremia (Strep V). -ID consulted -Continue IV Rocephin until 04/25 -Repeat cultures negative to date -Cardiology ff -IV antibiotic infusion being arranged with [facility] -PICC NATALIA: Cr as high as 3.78, baseline 0.9 February2017 -Nephrology consulted, patient continues to receive hemodialysis -PermCath placed on 04/07 -continue Bumex and Aldactone, fluid restrictions and renal diet. 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 Monitor CBC Hyperlipidemia-continue statins Biliary Cirrhosis, stage IV-continue Bumex and Lasix, continue Mckenna DM2-continue long-acting Levemir and sliding scale insulin, A1c 6.5. Hyperglycemia secondary to renal diet will add ADA Hypothyroidism-Continue supplementation GERD/Hiatal Hernia-Continue PPI Diarrhea-improving. C. difficile PCR negative. Imodium prn. DVT Prophylaxis: SCDs, restart Coumadin when ok with hematology, on IV Argatroban for now Sreedhar Brito MD April 08, 2017 15:18
[2017-04-08 16:00] VITALS: BP 118/66; PULSE 91; RESP 16; TEMP 97.8; O2SAT 98
[2017-04-08] MEDS ORDERED: WARFARIN SOD 4 MG TAB PO SCH (16:00)
[2017-04-08 20:00] VITALS: PULSE 99
[2017-04-08 20:34] VITALS: BP 118/58; PULSE 85; RESP 20; TEMP 98; O2SAT 97
[2017-04-08] MEDS: INSULIN DETEMIR 100 UNITS/ML VIAL SQ SCH (22:05)
[2017-04-08] MEDS: ACETAMINOPHEN/HYDROcodone 325 MG/5 MG TAB PO PRN (22:08)
[2017-04-08] MEDS: ATORVASTATIN 10 MG TAB PO SCH (22:09)
[2017-04-08] MEDS: SODIUM CHLOR 0.9% IV SCH (22:10)
[2017-04-08] MEDS: ARGATROBAN IV SCH (22:10)
[2017-04-09] VITALS (7 sets, daily range): BP systolic 110–134; BP diastolic 55–85; PULSE 69–111; RESP 16–18; TEMP 97.5–98.6; O2SAT 94–100
[2017-04-09] MEDS: CHLORHEXIDINE GLUCONATE 2 % 1 PACK (2 CLOTHS) TOP SCH (02:57)
[2017-04-09] MEDS: INSULIN ASPART SUPPLEMENTAL SCALE SQ SCH ×4 (06:21→21:40)
[2017-04-09] MEDS: LEVOTHYROXINE SODIUM 75 MCG TAB PO SCH (06:21)
[2017-04-09 07:47] LABS: BASOPHIL # 0.1 TH/MM3 (0-0.2); BASOPHIL % 1.1 % (0.0-2.0); EOSINOPHIL # 0.1 TH/MM3 (0-0.4); LYMPH % 9.6 % (9.0-44.0); LYMPHOCYTE # 0.8 TH/MM3 (1.0-4.8); MEAN CELL VOLUME 86.7 FL (80.0-100.0); MEAN CORPUSCULAR HEMOGLOBIN 29.6 PG (27.0-34.0); MEAN CORPUSCULAR HGB CONC 34.2 % (32.0-36.0); MONO % 4.7 % (0.0-8.0); NEUT % 83.6 % (16.0-70.0); PLATELET COUNT 90 TH/MM3 (150-450); RED BLOOD COUNT 3.34 MIL/MM3 (4.00-5.30); RED CELL DISTRIBUTION WIDTH 17.8 % (11.6-17.2); WHITE BLOOD COUNT 8.4 TH/MM3 (4.0-11.0)
[2017-04-09 07:53] LABS: HEMO FLAGS AUTO DIFF
[2017-04-09 08:56] LABS: PLATELET ESTIMATE SMEAR LOW (NORMAL); PLATELET MORPHOLOGY NORMAL (NORMAL); SCAN/DIFF AUTO DIFF CONFIRMED
[2017-04-09] MEDS: SODIUM CHLORIDE 0.9% FLUSH 10 ML FLUSH IVF SCH ×3 (09:00→21:44)
[2017-04-09] MEDS: MULTIVITAMIN TAB PO SCH (09:00)
[2017-04-09] MEDS: DILTIAZEM HCL 60 MG TAB PO SCH ×3 (09:00→18:11)
[2017-04-09] MEDS: CALCIUM CARBONATE 1.25 GM (CA 500 MG) TAB PO SCH ×3 (09:00→18:11)
[2017-04-09] MEDS: DOCUSATE SODIUM 100 MG CAP PO SCH ×2 (09:00→21:00)
[2017-04-09] MEDS: SODIUM CHLORIDE 0.9% FLUSH 10 ML FLUSH IV FLUSH SCH ×2 (09:00→21:00)
[2017-04-09 09:56] LABS: APTT (PATIENT) 37.5 SEC (24.3-30.1); INTERNATIONAL NORMALIZED RATIO 1.7 RATIO; PROTHROMBIN TIME - PATIENT 19.5 SEC (9.8-11.6)
--- NOTE | 2017-04-09 11:13 | HHI.PR ---
Subjective Remarks Follow-up infective endocarditis. Vascular team unable to place PICC line consulted IR who will schedule patient today. Patient admits to dietary noncompliance leading to hyperglycemia. She also mentioned that she takes Levemir in the morning and not at bedtime which is her dosing at the hospital. Seen with . Discussed with RN Objective Vitals Vital Signs Date Time Temp Pulse Resp B/P Pulse Ox O2 Delivery O2 Flow Rate FiO2 04/09/17 08:15 94 04/09/17 08:00 97.9 73 16 120/63 97 04/09/17 04:00 Room Air 04/09/17 04:00 97.9 81 18 120/58 94 04/09/17 00:01 98.0 69 18 110/55 98 04/09/17 00:00 Room Air 04/08/17 20:34 98.0 85 20 118/58 97 04/08/17 20:00 99 04/08/17 20:00 Room Air 04/08/17 16:00 97.8 91 16 118/66 98 I/O 04/08/17 04/08/17 04/08/17 04/09/17 04/09/17 04/09/17 07:00 15:00 23:00 07:00 15:00 23:00 Intake Total 24 ml 440 ml 16 ml Output Total 3950 ml 500 ml Balance 24 ml -3510 ml -484 ml Intake Oral 440 ml IV Total 24 ml 16 ml Output Urine Total 450 ml 500 ml Hemodialysis 3500 ml # Voids 1 1 2 # Bowel Movements 0 1 0 0 Result Diagram: 04/09/17 0701 04/08/17 0242 Imaging Last Impressions PICC Line Insertion 04/09/17 0000 Signed Impressions: Service Date/Time: Sunday, April 09, 2017 10:58 - CONCLUSION: 1. Uncomplicated central venous Power PICC line placement. 2. The PICC line can be used immediately. David oCllier MD Catheter Placement X-Ray 04/07/17 0700 Signed Impressions: Service Date/Time: Friday, April 07, 2017 14:04 - CONCLUSION: Uncomplicated exchange of Vas-Cath for hemodialysis permacath with fluoroscopic guidance as above. The catheter can be used immediately. Reynaldo Kasper MD Upper Extremity Ultrasound 03/26/17 0000 Signed Impressions: Service Date/Time: Sunday, March 26, 2017 21:49 - CONCLUSION: Normal examination. Denton Parker Jr., MD Lower Extremity Ultrasound 03/26/17 Signed Impressions: Service Date/Time: Sunday, March 26, 2017 21:28 - CONCLUSION: 1. No DVT. 2. Subcutaneous edema involving both calves. Denton Parker Jr., MD Chest X-Ray 03/21/17 Signed Impressions: Service Date/Time: Tuesday, March 21, 2017 09:16 - CONCLUSION: Bibasilar opacities characteristic of pleural effusions with associated volume loss and/or consolidation. The perihilar interstitial opacities are suggestive of pulmonary edema. Reynaldo Higgins MD Renal Ultrasound 03/18/17 Signed Impressions: Service Date/Time: Saturday, March 18, 2017 17:35 - CONCLUSION: 1. Echogenic kidneys bilaterally compatible with medical renal disease. 2. Small volume ascites Dimitrios Lopez MD Neck CTA 03/12/17 Signed Impressions: Service Date/Time: Sunday, March 12, 2017 20:22 - CONCLUSION: Slight atherosclerosis of both carotid bifurcations without narrowing. Dominant left vertebral artery. Reynaldo Lazar MD Head CTA 03/12/17 Signed Impressions: Service Date/Time: Sunday, March 12, 2017 20:22 - CONCLUSION: Normal intracranial arteries. Reynaldo Lazar MD Head CT 03/12/17 0000 Signed Impressions: Service Date/Time: Sunday, March 12, 2017 19:02 - CONCLUSION: Negative noncontrast head CT. Reynaldo Lazar MD Objective Remarks GENERAL: Well-nourished, well-developed pleasant elderly female patient in [facility]. SKIN: Warm and dry. No rash. HEENT: Normocephalic. Atraumatic.Pupils equal and round. Mucous membranes pink and moist. NECK: Supple. Trachea midline. CARDIOVASCULAR: Irregularly irregular. 3/6 systolic murmur noted. RESPIRATORY: No accessory muscle use. Clear to auscultation. Breath sounds equal bilaterally. GASTROINTESTINAL: Abdomen soft, non-tender, nondistended. Normoactive bowel sounds x4. MUSCULOSKELETAL: No obvious deformities. 1+ BLE edema. NEUROLOGICAL: Awake and alert. No obvious cranial nerve deficits. Motor grossly within normal limits. Normal speech. Nonfocal PSYCHIATRIC: Appropriate mood and affect; insight and judgment normal. 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 Infective Endocarditis at Prosthetic Valve: Culture +Strep Bacteremia (Strep V). -ID consulted -Continue IV Rocephin until 04/25 -Repeat cultures negative to date -Cardiology ff -IV antibiotic infusion being arranged with [facility] -PICC NATALIA: Cr as high as 3.78, baseline 0.9 February2017 -Nephrology consulted, patient continues to receive hemodialysis -PermCath placed on 04/07 -continue Bumex and Aldactone, fluid restrictions and renal diet. Monitor INR, currently 2.1 -currently coumadin on hold for procedure, on IV Argatroban, will need to bridge back to coumadin, discussed with hematology A-fib with RVR - Controlled on a Diltiazem PO, continue anticoagulation with Coumadin, Coumadin teaching booklet provided, cardiology following Anemia and heparin induced thrombocytopenia- CHAPO positive, on IV argatroban per hematology, bridge with Coumadin. Monitor CBC Hyperlipidemia-continue statins Biliary Cirrhosis, stage IV-continue Bumex and Lasix, continue Mckenna DM2-continue long-acting Levemir and sliding scale insulin, A1c 6.5. Hyperglycemia secondary to noncompliance. Patient comes Hypothyroidism-Continue supplementation GERD/Hiatal Hernia-Continue PPI Diarrhea-improving. C. difficile PCR negative. Imodium prn. DVT Prophylaxis: SCDs, Coumadin and IV Argatroban for now Discharge Planning Discharge when INR therapeutic Jaquelineo,Sreedhar Gilbert MD April 09, 2017 11:13
[2017-04-09] MEDS ORDERED: INSULIN DETEMIR 100 UNITS/ML VIAL SQ SCH (11:16)
[2017-04-09] MEDS ORDERED: SODIUM CHLORIDE 0.9% FLUSH 10 ML FLUSH IVF PRN (11:45)
--- NOTE | 2017-04-09 11:45 | PD.RAD ---
Radiology Post PICC Prog Note Pre Procedure Diagnosis: (1) UTI (urinary tract infection) (2) Streptococcal bacteremia Post Procedure Diagnosis: (1) UTI (urinary tract infection) (2) Streptococcal bacteremia Procedure: Left PICC line placement Procedure Date: April 09, 2017 Supervising Radiologist David Collier Proceduralist/Assist: Makenna Nazario, RT(R)(CV), Libra Calloway, RT(R), Carmen Kam, RT(R)() Device Side: Left Slovenian: 5 dual lumen cm: 44 Catheter: Power PICC Plan of Activity Patient to Unit: Nursing Unit Patient Condition: Good PICC line can be used immediately David Collier MD April 09, 2017 11:45
[2017-04-09] MEDS: URSODIOL PO SCH ×2 (11:55→21:41)
[2017-04-09] MEDS: BUMETANIDE INJ 1 MG/4 ML VIAL IV PUSH SCH ×2 (11:57→18:11)
[2017-04-09] MEDS: SPIRONOLACTONE 25 MG TAB PO SCH (11:57)
[2017-04-09] MEDS: POTASSIUM CHLORIDE 20 MEQ CONTROLLED RELEASE TAB PO SCH ×2 (11:58→21:42)
[2017-04-09] MEDS: PANTOPRAZOLE SOD 40 MG DELAYED RELEASE TAB PO SCH (11:58)
[2017-04-09] MEDS: cefTRIAXone INJ 2,000 MG in SODIUM CHLORIDE 0.9% INJ 100 ML IV SCH (12:14)
--- NOTE | 2017-04-09 13:13 | HHI.NPPN ---
Subjective History of Present Illness 76 Year old W Female with ARF, Biliary Cirrhosis, streptococcus Viridans sepsis Additional Remarks Patient is alert, not in distress, started eating better. Review of Systems General Constitutional: Fatigue Objective Data Data 04/08/17 04/09/17 19:00 07:00 Intake Total 440 ml 16 ml Output Total 3950 ml 500 ml Balance -3510 ml -484 ml Intake Oral 440 ml IV Total 16 ml Output Urine Total 450 ml 500 ml Hemodialysis 3500 ml # Voids 3 # Bowel Movements 1 0 Vital Signs Date Time Temp Pulse Resp B/P Pulse Ox O2 Delivery O2 Flow Rate FiO2 04/09/17 08:15 94 04/09/17 08:00 97.9 73 16 120/63 97 04/09/17 04:00 Room Air 04/09/17 04:00 97.9 81 18 120/58 94 04/09/17 00:01 98.0 69 18 110/55 98 04/09/17 00:00 Room Air 04/08/17 20:34 98.0 85 20 118/58 97 04/08/17 20:00 99 04/08/17 20:00 Room Air 04/08/17 16:00 97.8 91 16 118/66 98 -: 04/09/17 0701 04/08/17 0242 Physical Exam General Appearance: No Acute Distress, Comfortable, Anxious Neck Neck Exam: Neck Supple Pulmonary Resp Exam: Breath Sounds Equal, No Distress, Rhonchi, Decreased Bases Cardiology CV Exam: Irregular Gastrointestinal/Abdomen GI Exam: Soft, Non-Tender, Bowel Sounds Present Extremeties Extremities Exam: Moderate Edema Neurologic Neuro Exam: Alert, Awake, Oriented Psychiatric Psych Exam: Appropriate Responses Assessment/Plan Problem List: (1) Acute renal failure Plan: This is ARF, edema persists Non oliguric, on Bumex. 1 Aldactone 25 mg daily hemodialysis post PermCath HIT pos. Urine out put is better and Creatinine improving. Possibly has some renal recovery. but due to edema and fluid accumulation with Liver disease likely need HD as out pt she can be discharged. A PICC line placed (2) Streptococcal bacteremia Plan: Infectious disease is following she is on broad-spectrum antibiotic ceftriaxone (3) Atrial flutter with rapid ventricular response Plan: Off diltiazem (4) Biliary liver cirrhosis Plan: Follows with GI (5) Thrombocytopenia Plan: HIT positive Hematology fu Argatroban Problem Qualifiers (1) Acute renal failure: Qualified Code: N17.9 - Acute renal failure, unspecified acute renal failure type Molly Peng MD April 09, 2017 13:13
--- NOTE | 2017-04-09 13:57 | RADRPT ---
EXAM DATE/TIME: 04/09/2017 10:58 [place] COMPARISON: No previous studies available for comparison. INDICATIONS : Patient with sepsis in need of PICC line placement for antibiotics. MEDICAL HISTORY : Endocarditis, A-Fib, HLD, HTN, Diabetes, CHF, Biliary cirrhosis, GERD, Severe aortic stenosis SURGICAL HISTORY : Aortic valve replacement, Appendectomy, Cholecystectomy, Vein stripping, Dialysis catheter placement ENCOUNTER: Initial ACUITY: 1 month PAIN SCORE: 0/10 FLUORO TIME: 0.6 minutes IMAGE SERIES: 2 ACCESS: Left basilic vein DEVICE(S): 1.) 5 Belarusian dual lumen 44 cm Xcela Power PICC PROCEDURE : 1. Ultrasound guidance for venous catheterization. 2. Fluoroscopic guidance. 3. Ultrasound & fluoroscopic guided central venous Power PICC line placement. The risks, benefits and alternatives to the procedure were explained and verbal and written consent w as obtained. The site was prepped in sterile fashion. Full sterile technique was used, including ca p, mask, sterile gloves and gown and a large sterile sheet. Hand hygiene and 2% chlorhexidine prep w as utilized per protocol for cutaneous antisepsis with appropriate dry time for site. The skin and s ubcutaneous tissues were infiltrated with local anesthetic solution. Under direct ultrasound guidance, a suitable vein was accessed and a measuring guidewire was introduc ed and positioned in the central venous system. The ultrasound images depicting access guidance were saved and stored to PACS for permanent record. A Power Injectable PICC line was cut to prescribed length and introduced, positioned with tip at the cavoatrial junction level. The line was flushed and secured per protocol. CONCLUSION: 1. Uncomplicated central venous Power PICC line placement. 2. The PICC line can be used immediately. David Collier MD on April 09, 2017 at 13:55 Board Certified Radiologist. This report was verified electronically.
[2017-04-09 14:43] LABS: APTT (PATIENT) 42.5 SEC (24.3-30.1)
[2017-04-09] MEDS ORDERED: WARFARIN SOD 4 MG TAB PO SCH (19:00)
[2017-04-09 19:15] LABS: APTT (PATIENT) 44.3 SEC (24.3-30.1)
--- NOTE | 2017-04-09 19:59 | PD.ONC.PN ---
Subjective Subjective Remarks Bruises from L arm from previous pic line attempt. Objective Data Date Time Temp Pulse Resp B/P Pulse Ox O2 Delivery O2 Flow Rate FiO2 04/09/17 16:00 98.0 73 17 124/58 96 04/09/17 12:00 97.5 111 16 134/85 100 04/09/17 08:15 94 04/09/17 08:00 97.9 73 16 120/63 97 04/09/17 07:15 Room Air 2.00 21 04/09/17 04:00 Room Air 04/09/17 04:00 97.9 81 18 120/58 94 04/09/17 00:01 98.0 69 18 110/55 98 04/09/17 00:00 Room Air 04/08/17 20:34 98.0 85 20 118/58 97 04/08/17 20:00 99 04/08/17 20:00 Room Air 04/09/17 04/09/17 04/09/17 07:00 15:00 23:00 Intake Total 16 ml 368 ml Output Total 500 ml 600 ml Balance -484 ml -232 ml Result Diagram: 04/09/17 0701 04/08/17 0242 Laboratory Results Laboratory Tests Test 04/09/17 04/09/17 04/09/17 04/09/17 07:01 09:23 14:10 16:55 White Blood Count 8.4 TH/MM3 Red Blood Count 3.34 MIL/MM3 Hemoglobin 9.9 GM/DL Hematocrit 29.0 % Mean Corpuscular Volume 86.7 FL Mean Corpuscular Hemoglobin 29.6 PG Mean Corpuscular Hemoglobin 34.2 % Concent Red Cell Distribution Width 17.8 % Platelet Count 90 TH/MM3 Mean Platelet Volume 7.8 FL Neutrophils (%) (Auto) 83.6 % Lymphocytes (%) (Auto) 9.6 % Monocytes (%) (Auto) 4.7 % Eosinophils (%) (Auto) 1.0 % Basophils (%) (Auto) 1.1 % Neutrophils # (Auto) 7.0 TH/MM3 Lymphocytes # (Auto) 0.8 TH/MM3 Monocytes # (Auto) 0.4 TH/MM3 Eosinophils # (Auto) 0.1 TH/MM3 Basophils # (Auto) 0.1 TH/MM3 CBC Comment AUTO DIFF Differential Comment AUTO DIFF CONFIRMED Platelet Estimate LOW Platelet Morphology Comment NORMAL Prothrombin Time 19.5 SEC Prothromb Time International 1.7 RATIO Ratio Activated Partial 37.5 SEC 42.5 SEC 44.3 SEC Thromboplast Time Imaging Studies Last 24 hours Impressions PICC Line Insertion 04/09/17 0000 Signed Impressions: Service Date/Time: Sunday, April 09, 2017 10:58 - CONCLUSION: 1. Uncomplicated central venous Power PICC line placement. 2. The PICC line can be used immediately. David Collier MD Administered Medications Medications (Trade) Dose Ordered Sig/Tunde Route PRN Reason Start Time Stop Time Status Last Admin Dose Admin Atorvastatin Calcium (Lipitor) 10 mg HS PO 03/12/17 21:00 04/08/17 22:09 Levothyroxine Sodium (Synthroid) 75 mcg DAILY@06 PO 03/14/17 06:00 04/09/17 06:21 Sodium Chloride (NS Flush) DAILY IVF 03/13/17 09:00 04/09/17 09:00 Sodium Chloride (NS Flush) UNSCH PRN IVF SEE PROTOCOL 03/13/17 08:00 03/14/17 09:13 Sodium Chloride (NS Flush) 2 ml UNSCH PRN IV FLUSH FLUSH AFTER USING IV ACCESS 03/13/17 08:30 03/14/17 09:13 Sodium Chloride (NS Flush) 2 ml BID IV FLUSH 03/13/17 09:00 04/09/17 09:00 Acetaminophen (Tylenol) 650 mg Q6H PRN PO PAIN 1-2 AND/OR FEVER >101F 03/13/17 08:30 04/08/17 13:11 Acetaminophen/ Hydrocodone Bitart ([place] 5-325 Mg) 1 tab Q4H PRN PO PAIN SCALE 3 TO 5 03/13/17 08:30 04/08/17 22:08 Ondansetron HCl (Zofran Inj) 4 mg Q6H PRN IV NAUSEA OR VOMITING 03/13/17 08:30 04/07/17 11:31 Docusate Sodium (Colace) 100 mg BID PO 03/13/17 09:00 04/02/17 08:25 Miscellaneous Information 1 Q361D XX 03/13/17 08:30 03/14/17 09:14 Chlorhexidine Gluconate (Chlorhexidine 2% Cloth) Taper DAILY@04 TOP 03/14/17 04:00 03/10/18 03:59 04/02/17 04:00 Multivitamins 1 tab 1 tab DAILY PO 03/13/17 11:30 04/09/17 09:00 Ceftriaxone Sodium/Sodium Chloride (Rocephin Inj/NS Inj) 100 ml @ 200 mls/hr Q24H IV 03/14/17 13:00 04/09/17 12:14 Patient Own Medication PT OWN MED: Ursod... BID PO 03/15/17 13:00 04/09/17 11:55 Diltiazem HCl (Cardizem) 60 mg TID PO 03/19/17 18:00 04/09/17 18:11 Calcium Carbonate (Oscal) 1,000 mg TID PO 03/20/17 09:00 04/09/17 18:11 Bumetanide 1 mg 1 mg BID@,18 IV PUSH 03/20/17 18:00 04/09/17 18:11 Sodium Chloride 1,000 ml @ 0 mls/hr Q0M PRN IV For Prime & Rinse Back 03/21/17 11:22 04/05/17 11:41 Sodium Chloride (NS 1000 ml Inj) 1,000 ml @ 200 mls/hr Q5H PRN IV WITH DIALYSIS 03/21/17 11:22 03/27/17 12:24 Gentamicin Sulfate (Gentamicin (Dialysis) Inj) 20 mg UNSCH PRN IV WITH DIALYSIS 03/21/17 11:30 04/08/17 12:16 Epoetin Derrell (Epogen Inj) 4,000 units UNSCH PRN IV WITH DIALYSIS 03/21/17 11:30 04/08/17 09:40 Pantoprazole Sodium (Protonix) 40 mg DAILY PO 03/24/17 11:00 04/09/17 11:58 Calcium Carbonate (Tums Chew) 500 mg Q8HR PRN CHEW HEARTBURN 03/24/17 11:00 03/24/17 11:01 Potassium Chloride (KCl) 20 meq Q12HR PO 03/31/17 21:00 04/09/17 11:58 Spironolactone (Aldactone) 25 mg DAILY PO 04/01/17 13:30 04/09/17 11:57 Lorazepam (Ativan) 0.5 mg Q6H PRN PO anxiety 04/02/17 00:00 04/03/17 18:53 Loperamide HCl (Imodium) 2 mg Q6H PRN PO diarrhea 04/06/17 13:00 04/08/17 22:09 Insulin Detemir (Levemir Inj) 10 units DAILY SQ 04/09/17 11:16 04/09/17 12:09 Sodium Chloride (NS Flush) Q8HR IVF 04/09/17 14:00 04/09/17 14:00 Objective Remarks GENERAL: Slender frail woman, well-developed patient. SKIN: Warm and dry. Mild edema L arm, new pic line in place. HEAD: Normocephalic. EYES: No scleral icterus. No injection or drainage. NECK: Supple, trachea midline. No JVD or lymphadenopathy. LYMPHATIC: No adenopathy. CARDIOVASCULAR: Regular rate and rhythm without murmurs. RESPIRATORY: Breath sounds equal bilaterally. No accessory muscle use. GASTROINTESTINAL: Abdomen soft, non-tender, nondistended. EXTREMITIES: No cyanosis, or edema. MUSCULOSKELETAL: Adequate muscle tone. Assessment/Plan Problem List: (1) Thrombocytopenia Status: Chronic Plan: 04/09/17. Thrombocytopenia noted. Argatroban held for pic line, uneventful placement, Argatroban restarted. Start Coumadin tonight, no other procedures pending. Discussed need to continue anticoagulation atleast 3 months. Planning on home care to draw pt/inr or to come to hematology clinic. Pt also have emergency response coordinator who can monitor. 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 Jerome is a 76-year-old woman who presented with generalized weakness on 03/11/2017. She has a history of thrombocytopenia reported by the patient and her during her cataract surgery. Her platelet count on admission was 148,000. It continued to trend down. She is noted to have started heparin on 03/14 as well as March 17. She had gradual decrease of platelet count temporarily related to starting heparin protocol. Assessment 76 y/o female with thrombocytopenia. 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 Resume Argatroban bridge to coumadin 2. Start Coumadin tonight. Mojgan Mcginnis MD April 09, 2017 19:59
[2017-04-09] MEDS ORDERED: WARFARIN SOD 2 MG TAB PO SCH (21:30)
[2017-04-09] MEDS: ACETAMINOPHEN/HYDROcodone 325 MG/5 MG TAB PO PRN (21:41)
[2017-04-09] MEDS: ATORVASTATIN 10 MG TAB PO SCH (21:41)
[2017-04-09 22:37] LABS: APTT (PATIENT) 68.3 SEC (24.3-30.1)
[2017-04-10] VITALS: BP 135/62; PULSE 72; RESP 18; TEMP 97; O2SAT 98
[2017-04-10 04:00] VITALS: BP 128/63; PULSE 78; RESP 18; TEMP 98; O2SAT 97
[2017-04-10] MEDS: CHLORHEXIDINE GLUCONATE 2 % 1 PACK (2 CLOTHS) TOP SCH (04:00)
[2017-04-10] MEDS: LEVOTHYROXINE SODIUM 75 MCG TAB PO SCH (05:59)
[2017-04-10] MEDS: INSULIN ASPART SUPPLEMENTAL SCALE SQ SCH ×4 (05:59→20:48)
[2017-04-10] MEDS: SODIUM CHLORIDE 0.9% FLUSH 10 ML FLUSH IVF SCH ×4 (06:00→20:49)
[2017-04-10 06:40] LABS: HEMATOCRIT 27.7 % (35.0-46.0); MEAN CELL VOLUME 87.7 FL (80.0-100.0); MEAN CORPUSCULAR HEMOGLOBIN 28.4 PG (27.0-34.0); MEAN CORPUSCULAR HGB CONC 32.4 % (32.0-36.0); PLATELET COUNT 80 TH/MM3 (150-450); RED BLOOD COUNT 3.16 MIL/MM3 (4.00-5.30); RED CELL DISTRIBUTION WIDTH 17.7 % (11.6-17.2); WHITE BLOOD COUNT 8.8 TH/MM3 (4.0-11.0)
[2017-04-10 06:49] LABS: REVIEW FLAG FINAL
[2017-04-10 08:00] VITALS: BP 135/60; PULSE 80; PULSE 86; RESP 20; TEMP 98; O2SAT 96
[2017-04-10 08:23] LABS: APTT (PATIENT) 72.3 SEC (24.3-30.1)
[2017-04-10 08:26] LABS: PROTHROMBIN TIME - PATIENT 71.8 SEC (9.8-11.6)
[2017-04-10] MEDS: DILTIAZEM HCL 60 MG TAB PO SCH ×3 (09:00→18:12)
[2017-04-10] MEDS: BUMETANIDE INJ 1 MG/4 ML VIAL IV PUSH SCH ×2 (09:00→18:12)
[2017-04-10] MEDS: SPIRONOLACTONE 25 MG TAB PO SCH (09:00)
[2017-04-10] MEDS: SODIUM CHLORIDE 0.9% FLUSH 10 ML FLUSH IV FLUSH SCH ×2 (09:00→20:36)
[2017-04-10] MEDS: DOCUSATE SODIUM 100 MG CAP PO SCH ×2 (09:00→20:37)
[2017-04-10] MEDS: POTASSIUM CHLORIDE 20 MEQ CONTROLLED RELEASE TAB PO SCH ×2 (09:00→20:38)
[2017-04-10] MEDS: URSODIOL PO SCH ×2 (09:00→20:38)
[2017-04-10] MEDS: CALCIUM CARBONATE 1.25 GM (CA 500 MG) TAB PO SCH ×3 (09:00→18:12)
[2017-04-10] MEDS ORDERED: INSULIN DETEMIR 100 UNITS/ML VIAL SQ SCH (09:40)
[2017-04-10] MEDS: INSULIN DETEMIR 100 UNITS/ML VIAL SQ SCH (10:27)
--- NOTE | 2017-04-10 11:08 | HHI.PR ---
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 INR 6 on argatroban and Coumadin. Patient had transient bleeding over PICC line site controlled with pressure. Discussed with RN, hold Argatroban and repeat INR in 4 hours. If INR under 2, restart Argatroban and repeat PT/INR in the morning and to hold argatroban drip 4 hours before. Per patient, hematology is not anticipating discharge tomorrow because of worsening thrombocytopenia. Patient requesting dietitian consult. Discussed with RN Objective Vitals Vital Signs Date Time Temp Pulse Resp B/P Pulse Ox O2 Delivery O2 Flow Rate FiO2 04/10/17 08:00 98.0 86 20 135/60 96 04/10/17 04:00 Room Air 04/10/17 04:00 98.0 78 18 128/63 97 04/10/17 00:00 Room Air 04/10/17 00:00 97.0 72 18 135/62 98 04/09/17 20:00 Room Air 04/09/17 20:00 75 04/09/17 20:00 98.6 71 16 124/60 99 04/09/17 16:00 98.0 73 17 124/58 96 04/09/17 12:00 97.5 111 16 134/85 100 I/O 04/09/17 04/09/17 04/09/17 04/10/17 04/10/17 04/10/17 06:59 14:59 22:59 06:59 14:59 22:59 Intake Total 16 ml 368 ml 304 ml 184 ml Output Total 500 ml 600 ml 300 ml 500 ml Balance -484 ml -232 ml 4 ml -316 ml Intake Oral 360 ml 280 ml 120 ml IV Total 16 ml 8 ml 24 ml 64 ml Output Urine Total 500 ml 600 ml 300 ml 500 ml # Voids 2 # Bowel Movements 0 0 1 1 Result Diagram: 04/10/17 0626 04/08/17 0242 Imaging Last Impressions PICC Line Insertion 04/09/17 0000 Signed Impressions: Service Date/Time: Sunday, April 09, 2017 10:58 - CONCLUSION: 1. Uncomplicated central venous Power PICC line placement. 2. The PICC line can be used immediately. David Collier MD Catheter Placement X-Ray 04/07/17 0700 Signed Impressions: Service Date/Time: Friday, April 07, 2017 14:04 - CONCLUSION: Uncomplicated exchange of Vas-Cath for hemodialysis permacath with fluoroscopic guidance as above. The catheter can be used immediately. Reynaldo Kasper MD Upper Extremity Ultrasound 03/26/17 Signed Impressions: Service Date/Time: Sunday, March 26, 2017 21:49 - CONCLUSION: Normal examination. Denton Parker Jr., MD Lower Extremity Ultrasound 03/26/17 Signed Impressions: Service Date/Time: Sunday, March 26, 2017 21:28 - CONCLUSION: 1. No DVT. 2. Subcutaneous edema involving both calves. Denton Parker Jr., MD Chest X-Ray 03/21/17 Signed Impressions: Service Date/Time: Tuesday, March 21, 2017 09:16 - CONCLUSION: Bibasilar opacities characteristic of pleural effusions with associated volume loss and/or consolidation. The perihilar interstitial opacities are suggestive of pulmonary edema. Reynaldo Higgins MD Renal Ultrasound 03/18/17 Signed Impressions: Service Date/Time: Saturday, March 18, 2017 17:35 - CONCLUSION: 1. Echogenic kidneys bilaterally compatible with medical renal disease. 2. Small volume ascites Dimitrios Lopez MD Neck CTA 03/12/17 Signed Impressions: Service Date/Time: Sunday, March 12, 2017 20:22 - CONCLUSION: Slight atherosclerosis of both carotid bifurcations without narrowing. Dominant left vertebral artery. Reynaldo Lazar MD Head CTA 03/12/17 Signed Impressions: Service Date/Time: Sunday, March 12, 2017 20:22 - CONCLUSION: Normal intracranial arteries. Reynaldo Lazar MD Head CT 03/12/17 Signed Impressions: Service Date/Time: Sunday, March 12, 2017 19:02 - CONCLUSION: Negative noncontrast head CT. Reynaldo Lazar MD Objective Remarks GENERAL: Well-nourished, well-developed pleasant elderly female patient in NAD. SKIN: Warm and dry. No rash. HEENT: Normocephalic. Atraumatic.Pupils equal and round. Mucous membranes pink and moist. NECK: Supple. Trachea midline. CARDIOVASCULAR: Irregularly irregular. 3/6 systolic murmur noted. RESPIRATORY: No accessory muscle use. Clear to auscultation. Breath sounds equal bilaterally. GASTROINTESTINAL: Abdomen soft, non-tender, nondistended. Normoactive bowel sounds x4. MUSCULOSKELETAL: No obvious deformities. 1+ BLE edema. NEUROLOGICAL: Awake and alert. No obvious cranial nerve deficits. Motor grossly within normal limits. Normal speech. PSYCHIATRIC: Appropriate mood and affect; insight and judgment normal. Procedures Right IJ, permacath, lumbar puncture, DORIE, PICC Date of Insertion: Mar 13, 2017 Line: Central Venous Catheter Side: Right Location: Internal, Jugular A/P Problem List: (1) Prosthetic valve endocarditis ICD Code: T82.6XXA Status: Acute (2) Atrial flutter with rapid ventricular response ICD Code: I48.92 Status: Acute (3) Thrombocytopenia ICD Code: D69.6 Status: Chronic (4) Hypokalemia ICD Code: E87.6 Status: Acute (5) HIT (heparin-induced thrombocytopenia) ICD Code: D75.82 Status: Acute Assessment and Plan 76 yrs old female with history of severe aortic stenosis s/p AVR w/bovine valve , primary biliary cirrhosis, diabetes mellitus, presented to the ED on 03/11 secondary to fatigue/weakness, found to have bacteremia with infective endocarditis. Infective Endocarditis at Prosthetic Valve: Culture +Strep Bacteremia (Strep V). -ID consulted -Continue IV Rocephin until 04/25 -Repeat cultures negative to date -Cardiology ff -IV antibiotic infusion being arranged with [facility] -PICC care NATALIA: Cr as high as 3.78, baseline 0.9 February2017 -Nephrology consulted, patient continues to receive hemodialysis -PermCath placed on 04/07 -continue Bumex and Aldactone, fluid restrictions and renal diet. A-fib with RVR - Controlled on a Diltiazem PO, continue anticoagulation with Coumadin, Coumadin teaching booklet provided, cardiology following Anemia and heparin induced thrombocytopenia- CHAPO positive, on IV argatroban per hematology, bridge with Coumadin. Monitor CBC patient with worsening thrombocytopenia. INR 6 today. Patient had transient bleeding over PICC line site controlled with pressure. Discussed with RN, hold Argatroban and repeat INR in 4 hours. If INR under 2, restart Argatroban and repeat PT/INR in the morning and to hold argatroban drip 4 hours before. Per patient, hematology is not anticipating discharge tomorrow because of worsening thrombocytopenia. Hyperlipidemia-continue statins Biliary Cirrhosis, stage IV-continue Bumex and Lasix, continue Mceknna DM2-continue long-acting Levemir and sliding scale insulin, A1c 6.5. Hyperglycemia secondary to noncompliance. Increase Levemir to 14 units daily. Diabetic education Hypothyroidism-Continue supplementation GERD/Hiatal Hernia-Continue PPI Diarrhea-improving. C. difficile PCR negative. Imodium prn. DVT Prophylaxis: SCDs, Coumadin and IV Argatroban for now Discharge Planning Discharge when cleared by hematology Sreedhar Brito MD April 10, 2017 11:08
[2017-04-10] MEDS ORDERED: DOCU1CAP39 PO (11:51)
[2017-04-10] MEDS ORDERED: BUME1TAB PO (11:51)
[2017-04-10] MEDS ORDERED: LEVO.075 PO (11:51)
[2017-04-10] MEDS ORDERED: DILT60TA33 PO (11:51)
[2017-04-10] MEDS ORDERED: COUM2TAB PO (11:51)
[2017-04-10] MEDS ORDERED: POTA20TA5 PO (11:51)
[2017-04-10 12:00] VITALS: BP 127/57; PULSE 84; RESP 20; TEMP 97.8; O2SAT 97
[2017-04-10] MEDS: cefTRIAXone INJ 2,000 MG in SODIUM CHLORIDE 0.9% INJ 100 ML IV SCH (12:35)
--- NOTE | 2017-04-10 12:42 | HHI.NPPN ---
Subjective History of Present Illness 76 Year old W Female with ARF, Biliary Cirrhosis, streptococcus Viridans sepsis Additional Remarks Patient is alert, not in distress, started eating better. Review of Systems General Constitutional: Fatigue Objective Data Data 04/09/17 04/10/17 18:59 06:59 Intake Total 368 ml 488 ml Output Total 600 ml 800 ml Balance -232 ml -312 ml Intake Oral 360 ml 400 ml IV Total 8 ml 88 ml Output Urine Total 600 ml 800 ml # Bowel Movements 0 2 Vital Signs Date Time Temp Pulse Resp B/P Pulse Ox O2 Delivery O2 Flow Rate FiO2 04/10/17 08:00 98.0 86 20 135/60 96 04/10/17 04:00 Room Air 04/10/17 04:00 98.0 78 18 128/63 97 04/10/17 00:00 Room Air 04/10/17 00:00 97.0 72 18 135/62 98 04/09/17 20:00 Room Air 04/09/17 20:00 75 04/09/17 20:00 98.6 71 16 124/60 99 04/09/17 16:00 98.0 73 17 124/58 96 -: 04/10/17 0626 04/08/17 0242 Physical Exam General Appearance: No Acute Distress, Comfortable, Anxious Neck Neck Exam: Neck Supple Pulmonary Resp Exam: Breath Sounds Equal, No Distress, Rhonchi, Decreased Bases Cardiology CV Exam: Irregular Gastrointestinal/Abdomen GI Exam: Soft, Non-Tender, Bowel Sounds Present Extremeties Extremities Exam: Moderate Edema Neurologic Neuro Exam: Alert, Awake, Oriented Psychiatric Psych Exam: Appropriate Responses Assessment/Plan Problem List: (1) Acute renal failure Plan: This is ARF, edema persists Non oliguric, on Bumex. 1 Aldactone 25 mg daily hemodialysis post PermCath HIT pos. Urine out put is better and Creatinine improving. Possibly has some renal recovery. but due to edema and fluid accumulation with Liver disease likely need HD as out pt complaints she cannot be discharged. A PICC line placed continue to monitor HD T,T,S (2) Streptococcal bacteremia Plan: Infectious disease is following she is on broad-spectrum antibiotic ceftriaxone (3) Atrial flutter with rapid ventricular response Plan: Off diltiazem (4) Biliary liver cirrhosis Plan: Follows with GI (5) Thrombocytopenia Plan: HIT positive Hematology fu Argatroban Problem Qualifiers (1) Acute renal failure: Qualified Code: N17.9 - Acute renal failure, unspecified acute renal failure type Molly Peng MD April 10, 2017 12:42
[2017-04-10 13:28] LABS: APTT (PATIENT) 62.6 SEC (24.3-30.1)
[2017-04-10 13:32] LABS: INTERNATIONAL NORMALIZED RATIO 3.7 RATIO; PROTHROMBIN TIME - PATIENT 43.8 SEC (9.8-11.6)
--- NOTE | 2017-04-10 13:57 | PD.ONC.PN ---
Subjective Subjective Remarks I am still waiting for dialysis. Objective Data Date Time Temp Pulse Resp B/P Pulse Ox O2 Delivery O2 Flow Rate FiO2 04/10/17 08:00 80 04/10/17 08:00 98.0 86 20 135/60 96 04/10/17 07:15 Room Air 04/10/17 04:00 Room Air 04/10/17 04:00 98.0 78 18 128/63 97 04/10/17 00:00 Room Air 04/10/17 00:00 97.0 72 18 135/62 98 04/09/17 20:00 Room Air 04/09/17 20:00 75 04/09/17 20:00 98.6 71 16 124/60 99 04/09/17 16:00 98.0 73 17 124/58 96 04/10/17 04/10/17 04/10/17 07:00 15:00 23:00 Intake Total 184 ml Output Total 500 ml Balance -316 ml Result Diagram: 04/10/17 0626 04/08/17 0242 Laboratory Results Laboratory Tests Test 04/09/17 04/09/17 04/09/17 04/10/17 14:10 16:55 22:10 06:26 Activated Partial 42.5 SEC 44.3 SEC 68.3 SEC Thromboplast Time White Blood Count 8.8 TH/MM3 Red Blood Count 3.16 MIL/MM3 Hemoglobin 9.0 GM/DL Hematocrit 27.7 % Mean Corpuscular Volume 87.7 FL Mean Corpuscular Hemoglobin 28.4 PG Mean Corpuscular Hemoglobin 32.4 % Concent Red Cell Distribution Width 17.7 % Platelet Count 80 TH/MM3 Mean Platelet Volume 7.8 FL Test 04/10/17 04/10/17 07:50 13:00 Prothrombin Time 71.8 SEC 43.8 SEC Prothromb Time International 6.0 RATIO 3.7 RATIO Ratio Activated Partial 72.3 SEC 62.6 SEC Thromboplast Time Administered Medications Medications (Trade) Dose Ordered Sig/Tunde Route PRN Reason Start Time Stop Time Status Last Admin Dose Admin Atorvastatin Calcium (Lipitor) 10 mg HS PO 03/12/17 21:00 04/09/17 21:41 Levothyroxine Sodium (Synthroid) 75 mcg DAILY@06 PO 03/14/17 06:00 04/10/17 05:59 Sodium Chloride (NS Flush) DAILY IVF 03/13/17 09:00 04/10/17 09:00 Sodium Chloride (NS Flush) UNSCH PRN IVF SEE PROTOCOL 03/13/17 08:00 03/14/17 09:13 Sodium Chloride (NS Flush) 2 ml UNSCH PRN IV FLUSH FLUSH AFTER USING IV ACCESS 03/13/17 08:30 03/14/17 09:13 Sodium Chloride (NS Flush) 2 ml BID IV FLUSH 03/13/17 09:00 04/10/17 09:00 Acetaminophen (Tylenol) 650 mg Q6H PRN PO PAIN 1-2 AND/OR FEVER >101F 03/13/17 08:30 04/08/17 13:11 Acetaminophen/ Hydrocodone Bitart ([place] 5-325 Mg) 1 tab Q4H PRN PO PAIN SCALE 3 TO 5 03/13/17 08:30 04/09/17 21:41 Ondansetron HCl (Zofran Inj) 4 mg Q6H PRN IV NAUSEA OR VOMITING 03/13/17 08:30 04/07/17 11:31 Docusate Sodium (Colace) 100 mg BID PO 03/13/17 09:00 04/02/17 08:25 Miscellaneous Information 1 Q361D XX 03/13/17 08:30 03/14/17 09:14 Chlorhexidine Gluconate (Chlorhexidine 2% Cloth) Taper DAILY@04 TOP 03/14/17 04:00 03/10/18 03:59 04/02/17 04:00 Multivitamins 1 tab 1 tab DAILY PO 03/13/17 11:30 04/09/17 09:00 Ceftriaxone Sodium/Sodium Chloride (Rocephin Inj/NS Inj) 100 ml @ 200 mls/hr Q24H IV 03/14/17 13:00 04/10/17 12:35 Patient Own Medication PT OWN MED: Ursod... BID PO 03/15/17 13:00 04/09/17 21:41 Diltiazem HCl (Cardizem) 60 mg TID PO 03/19/17 18:00 04/09/17 18:11 Calcium Carbonate (Oscal) 1,000 mg TID PO 03/20/17 09:00 04/09/17 18:11 Bumetanide 1 mg 1 mg BID@18 IV PUSH 03/20/17 18:00 04/09/17 18:11 Sodium Chloride 1,000 ml @ 0 mls/hr Q0M PRN IV For Prime & Rinse Back 03/21/17 11:22 04/05/17 11:41 Sodium Chloride (NS 1000 ml Inj) 1,000 ml @ 200 mls/hr Q5H PRN IV WITH DIALYSIS 03/21/17 11:22 03/27/17 12:24 Gentamicin Sulfate (Gentamicin (Dialysis) Inj) 20 mg UNSCH PRN IV WITH DIALYSIS 03/21/17 11:30 04/08/17 12:16 Epoetin Derrell (Epogen Inj) 4,000 units UNSCH PRN IV WITH DIALYSIS 03/21/17 11:30 04/08/17 09:40 Pantoprazole Sodium (Protonix) 40 mg DAILY PO 03/24/17 11:00 04/09/17 11:58 Calcium Carbonate (Tums Chew) 500 mg Q8HR PRN CHEW HEARTBURN 03/24/17 11:00 03/24/17 11:01 Potassium Chloride (KCl) 20 meq Q12HR PO 03/31/17 21:00 04/09/17 21:42 Spironolactone (Aldactone) 25 mg DAILY PO 04/01/17 13:30 04/09/17 11:57 Lorazepam (Ativan) 0.5 mg Q6H PRN PO anxiety 04/02/17 00:00 04/03/17 18:53 Loperamide HCl (Imodium) 2 mg Q6H PRN PO diarrhea 04/06/17 13:00 04/08/17 22:09 Sodium Chloride (NS Flush) Q8HR IVF 04/09/17 14:00 04/10/17 06:00 Warfarin Sodium (Coumadin) 2 mg DAILY@16 PO 04/09/17 21:30 04/09/17 21:59 Insulin Detemir (Levemir Inj) 14 units DAILYAC SQ 04/10/17 09:40 04/10/17 10:27 Objective Remarks GENERAL: Slender frail woman, well-developed patient. SKIN: Warm and dry. R arm pressure dressing, small patch near elbow with edema. Pic line site with dry crust blood. HEAD: Normocephalic. EYES: No scleral icterus. No injection or drainage. NECK: Supple, trachea midline. No JVD or lymphadenopathy. LYMPHATIC: No adenopathy. CARDIOVASCULAR: Regular rate and rhythm without murmurs. RESPIRATORY: Breath sounds equal bilaterally. No accessory muscle use. GASTROINTESTINAL: Abdomen soft, non-tender, nondistended. EXTREMITIES: No cyanosis, or edema. MUSCULOSKELETAL: Adequate muscle tone. Assessment/Plan Problem List: (1) Thrombocytopenia Status: Chronic Plan: 04/10/17. Noted INR 6.0, ptt 72 seconds. Argatroban on hold this AM for bleeding, R arm bleed now stopped.. Need to decrease Coumadin dose, Continue Argatroban this afternoon, note platelet decreased during interruption anticoagulant therapy. 04/09/17. Thrombocytopenia noted. Argatroban held for pic line, uneventful placement, Argatroban restarted. Start Coumadin tonight, no other procedures pending. Discussed need to continue anticoagulation atleast 3 months. Planning on home care to draw pt/inr or to come to hematology clinic. 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 Jerome is a 76-year-old woman who presented with generalized weakness on 03/11/2017. She has a history of thrombocytopenia reported by the patient and her during her cataract surgery. Her platelet count on admission was 148,000. It continued to trend down. She is noted to have started heparin on 03/14 as well as March 17. She had gradual decrease of platelet count temporarily related to starting heparin protocol. Assessment 76 y/o female with thrombocytopenia. 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 Continue Argatroban 2. Decrease Coumadin dose tonight. 3. Monitor platelets. Mojgan Mcginnis MD April 10, 2017 13:57
[2017-04-10] MEDS: EPOETIN ALFA 10,000 UNITS/ML VIAL IV PRN (15:31)
[2017-04-10] MEDS: SODIUM CHLOR 0.9% 1000 ML INJ 1,000 ML IV PRN (15:31)
[2017-04-10] MEDS: GENTAMICIN SULFATE (DIALYSIS USE ONLY) 20 MG/2 ML VIAL IV PRN (15:31)
[2017-04-10] MEDS: MULTIVITAMIN TAB PO SCH (18:11)
[2017-04-10] MEDS: PANTOPRAZOLE SOD 40 MG DELAYED RELEASE TAB PO SCH (18:11)
[2017-04-10] MEDS: WARFARIN SOD 1 MG TAB PO SCH (18:11)
[2017-04-10 20:00] VITALS: BP 155/65; PULSE 99; RESP 16; TEMP 98.4; O2SAT 97
[2017-04-10 20:17] VITALS: PULSE 117
[2017-04-10] MEDS: ATORVASTATIN 10 MG TAB PO SCH (20:37)
[2017-04-10] MEDS: ACETAMINOPHEN/HYDROcodone 325 MG/5 MG TAB PO PRN (20:38)
[2017-04-10 21:44] LABS: APTT (PATIENT) 38.6 SEC (24.3-30.1)
[2017-04-11] VITALS (8 sets, daily range): BP systolic 108–136; BP diastolic 55–78; PULSE 60–109; RESP 18–20; TEMP 97.5–99.1; O2SAT 95–98
[2017-04-11] MEDS: CHLORHEXIDINE GLUCONATE 2 % 1 PACK (2 CLOTHS) TOP SCH (04:00)
[2017-04-11] MEDS: INSULIN ASPART SUPPLEMENTAL SCALE SQ SCH ×4 (06:01→20:37)
[2017-04-11] MEDS: LEVOTHYROXINE SODIUM 75 MCG TAB PO SCH (06:01)
[2017-04-11] MEDS: SODIUM CHLORIDE 0.9% FLUSH 10 ML FLUSH IVF SCH ×4 (06:02→20:24)
[2017-04-11 06:54] LABS: AUTOMATED NEUTROPHIL # 7.4 TH/MM3 (1.8-7.7); BASOPHIL # 0.2 TH/MM3 (0-0.2); EOSINOPHIL # 0.1 TH/MM3 (0-0.4); EOSINOPHIL % 0.7 % (0.0-4.0); LYMPH % 12.3 % (9.0-44.0); LYMPHOCYTE # 1.1 TH/MM3 (1.0-4.8); MEAN CELL VOLUME 87.9 FL (80.0-100.0); MEAN CORPUSCULAR HEMOGLOBIN 28.8 PG (27.0-34.0); MEAN CORPUSCULAR HGB CONC 32.7 % (32.0-36.0); MONO % 5.7 % (0.0-8.0); NEUT % 79.3 % (16.0-70.0); PLATELET COUNT 73 TH/MM3 (150-450); RED BLOOD COUNT 3.19 MIL/MM3 (4.00-5.30); RED CELL DISTRIBUTION WIDTH 17.3 % (11.6-17.2); WHITE BLOOD COUNT 9.3 TH/MM3 (4.0-11.0)
[2017-04-11 06:55] LABS: APTT (PATIENT) 36.4 SEC (24.3-30.1); INTERNATIONAL NORMALIZED RATIO 1.6 RATIO; PROTHROMBIN TIME - PATIENT 18.1 SEC (9.8-11.6)
[2017-04-11 07:01] LABS: BICARBONATE 32.6 MEQ/L (21.0-32.0); MAGNESIUM 1.5 MG/DL (1.5-2.5); POTASSIUM 4.6 MEQ/L (3.5-5.1)
[2017-04-11 07:06] LABS: HEMO FLAGS AUTO DIFF
[2017-04-11 08:17] LABS: PLATELET ESTIMATE SMEAR LOW (NORMAL); PLATELET MORPHOLOGY NORMAL (NORMAL); SCAN/DIFF AUTO DIFF CONFIRMED
[2017-04-11] MEDS: POTASSIUM CHLORIDE 20 MEQ CONTROLLED RELEASE TAB PO SCH ×2 (09:29→20:25)
[2017-04-11] MEDS: DILTIAZEM HCL 60 MG TAB PO SCH ×3 (09:29→16:46)
[2017-04-11] MEDS: PANTOPRAZOLE SOD 40 MG DELAYED RELEASE TAB PO SCH (09:29)
[2017-04-11] MEDS: CALCIUM CARBONATE 1.25 GM (CA 500 MG) TAB PO SCH ×3 (09:29→16:46)
[2017-04-11] MEDS: SPIRONOLACTONE 25 MG TAB PO SCH (09:29)
[2017-04-11] MEDS: MULTIVITAMIN TAB PO SCH (09:29)
[2017-04-11] MEDS: SODIUM CHLORIDE 0.9% FLUSH 10 ML FLUSH IV FLUSH SCH ×2 (09:30→20:24)
[2017-04-11] MEDS: URSODIOL PO SCH ×2 (09:30→20:26)
[2017-04-11] MEDS: BUMETANIDE INJ 1 MG/4 ML VIAL IV PUSH SCH (09:30)
[2017-04-11] MEDS: DOCUSATE SODIUM 100 MG CAP PO SCH ×2 (09:34→20:25)
[2017-04-11] MEDS: ARGATROBAN IV SCH ×2 (09:42→21:43)
[2017-04-11] MEDS: SODIUM CHLOR 0.9% IV SCH ×2 (09:42→21:43)
[2017-04-11] MEDS: INSULIN DETEMIR 100 UNITS/ML VIAL SQ SCH (09:45)
--- NOTE | 2017-04-11 10:34 | PD.ONC.PN ---
Subjective Subjective Remarks Afebrile overnight. Patient resting comfortably in room. She had a bit of bleeding from a skin tear yesterday so her Argatroban was stopped. No further bleeding today. Objective Data Date Time Temp Pulse Resp B/P Pulse Ox O2 Delivery O2 Flow Rate FiO2 04/11/17 08:00 98.1 85 20 123/64 95 04/11/17 04:34 98.2 93 18 133/58 97 04/11/17 00:00 Room Air 04/11/17 00:00 99.1 99 108/55 95 04/10/17 20:45 Room Air 04/10/17 20:17 117 04/10/17 20:00 98.4 99 16 155/65 97 04/10/17 12:00 97.8 84 20 127/57 97 Result Diagram: 04/11/17 0600 04/11/17 0600 Laboratory Results Laboratory Tests Test 04/10/17 04/10/17 04/11/17 13:00 21:00 06:00 Prothrombin Time 43.8 SEC 18.1 SEC Prothromb Time International 3.7 RATIO 1.6 RATIO Ratio Activated Partial 62.6 SEC 38.6 SEC 36.4 SEC Thromboplast Time White Blood Count 9.3 TH/MM3 Red Blood Count 3.19 MIL/MM3 Hemoglobin 9.2 GM/DL Hematocrit 28.0 % Mean Corpuscular Volume 87.9 FL Mean Corpuscular Hemoglobin 28.8 PG Mean Corpuscular Hemoglobin 32.7 % Concent Red Cell Distribution Width 17.3 % Platelet Count 73 TH/MM3 Mean Platelet Volume 7.9 FL Neutrophils (%) (Auto) 79.3 % Lymphocytes (%) (Auto) 12.3 % Monocytes (%) (Auto) 5.7 % Eosinophils (%) (Auto) 0.7 % Basophils (%) (Auto) 2.0 % Neutrophils # (Auto) 7.4 TH/MM3 Lymphocytes # (Auto) 1.1 TH/MM3 Monocytes # (Auto) 0.5 TH/MM3 Eosinophils # (Auto) 0.1 TH/MM3 Basophils # (Auto) 0.2 TH/MM3 CBC Comment AUTO DIFF Differential Comment AUTO DIFF CONFIRMED Platelet Estimate LOW Platelet Morphology Comment NORMAL Sodium Level 137 MEQ/L Potassium Level 4.6 MEQ/L Chloride Level 99 MEQ/L Carbon Dioxide Level 32.6 MEQ/L Anion Gap 5 MEQ/L Blood Urea Nitrogen 19 MG/DL Creatinine 1.47 MG/DL Estimat Glomerular Filtration 35 ML/MIN Rate Random Glucose 89 MG/DL Calcium Level 8.5 MG/DL Magnesium Level 1.5 MG/DL Administered Medications Medications (Trade) Dose Ordered Sig/Tunde Route PRN Reason Start Time Stop Time Status Last Admin Dose Admin Atorvastatin Calcium (Lipitor) 10 mg HS PO 03/12/17 21:00 04/10/17 20:37 Levothyroxine Sodium (Synthroid) 75 mcg DAILY@06 PO 03/14/17 06:00 04/11/17 06:01 Sodium Chloride (NS Flush) DAILY IVF 03/13/17 09:00 04/11/17 09:30 Sodium Chloride (NS Flush) UNSCH PRN IVF SEE PROTOCOL 03/13/17 08:00 03/14/17 09:13 Sodium Chloride (NS Flush) 2 ml UNSCH PRN IV FLUSH FLUSH AFTER USING IV ACCESS 03/13/17 08:30 03/14/17 09:13 Sodium Chloride (NS Flush) 2 ml BID IV FLUSH 03/13/17 09:00 04/11/17 09:30 Acetaminophen (Tylenol) 650 mg Q6H PRN PO PAIN 1-2 AND/OR FEVER >101F 03/13/17 08:30 04/08/17 13:11 Acetaminophen/ Hydrocodone Bitart ([place] 5-325 Mg) 1 tab Q4H PRN PO PAIN SCALE 3 TO 5 03/13/17 08:30 04/10/17 20:38 Ondansetron HCl (Zofran Inj) 4 mg Q6H PRN IV NAUSEA OR VOMITING 03/13/17 08:30 04/07/17 11:31 Docusate Sodium (Colace) 100 mg BID PO 03/13/17 09:00 04/02/17 08:25 Miscellaneous Information 1 Q361D XX 03/13/17 08:30 03/14/17 09:14 Chlorhexidine Gluconate (Chlorhexidine 2% Cloth) Taper DAILY@04 TOP 03/14/17 04:00 03/10/18 03:59 04/02/17 04:00 Multivitamins 1 tab 1 tab DAILY PO 03/13/17 11:30 04/11/17 09:29 Ceftriaxone Sodium/Sodium Chloride (Rocephin Inj/NS Inj) 100 ml @ 200 mls/hr Q24H IV 03/14/17 13:00 04/10/17 12:35 Patient Own Medication PT OWN MED: Ursod... BID PO 03/15/17 13:00 04/11/17 09:30 Diltiazem HCl (Cardizem) 60 mg TID PO 03/19/17 18:00 04/11/17 09:29 Calcium Carbonate (Oscal) 1,000 mg TID PO 03/20/17 09:00 04/11/17 09:29 Bumetanide 1 mg 1 mg BID@09,18 IV PUSH 03/20/17 18:00 04/11/17 09:30 Sodium Chloride 1,000 ml @ 0 mls/hr Q0M PRN IV For Prime & Rinse Back 03/21/17 11:22 04/10/17 15:31 Sodium Chloride (NS 1000 ml Inj) 1,000 ml @ 200 mls/hr Q5H PRN IV WITH DIALYSIS 03/21/17 11:22 03/27/17 12:24 Gentamicin Sulfate (Gentamicin (Dialysis) Inj) 20 mg UNSCH PRN IV WITH DIALYSIS 03/21/17 11:30 04/10/17 15:31 Epoetin Derrell (Epogen Inj) 4,000 units UNSCH PRN IV WITH DIALYSIS 03/21/17 11:30 04/10/17 15:31 Pantoprazole Sodium (Protonix) 40 mg DAILY PO 03/24/17 11:00 04/11/17 09:29 Calcium Carbonate (Tums Chew) 500 mg Q8HR PRN CHEW HEARTBURN 03/24/17 11:00 03/24/17 11:01 Potassium Chloride (KCl) 20 meq Q12HR PO 03/31/17 21:00 04/11/17 09:29 Spironolactone (Aldactone) 25 mg DAILY PO 04/01/17 13:30 04/11/17 09:29 Lorazepam (Ativan) 0.5 mg Q6H PRN PO anxiety 04/02/17 00:00 04/03/17 18:53 Loperamide HCl (Imodium) 2 mg Q6H PRN PO diarrhea 04/06/17 13:00 04/08/17 22:09 Sodium Chloride Q8HR IVF 04/09/17 14:00 04/11/17 06:02 Argatroban/Sodium Chloride (Novastan Inj/NS 250 ml Inj) 250 ml @ 0 mls/hr TITRATE IV 04/09/17 20:00 04/11/17 09:42 Insulin Detemir (Levemir Inj) 14 units DAILYAC SQ 04/10/17 09:40 04/11/17 09:45 Warfarin Sodium (Coumadin) 1 mg DAILY@16 PO 04/10/17 16:00 04/10/17 18:11 Objective Remarks GENERAL: Pleasant elderly female, sitting up in bed in nad. SKIN: Warm and dry. left arm skin tear with small amount of oozing. HEAD: Normocephalic. EYES: no injection or drainage. NECK: Supple, trachea midline. CARDIOVASCULAR: Regular rate and rhythm RESPIRATORY: Breath sounds equal bilaterally. No accessory muscle use. GASTROINTESTINAL: Abdomen soft, non-tender, nondistended. EXTREMITIES: No cyanosis MUSCULOSKELETAL: Adequate muscle tone. Assessment/Plan Problem List: (1) Thrombocytopenia Status: Chronic Plan: 04/11: resume Argatroban and coumadin. monitor for bleeding. 04/10/17. Noted INR 6.0, ptt 72 seconds. Argatroban on hold this AM for bleeding, R arm bleed now stopped.. Need to decrease Coumadin dose, Continue Argatroban this afternoon, note platelet decreased during interruption anticoagulant therapy. 04/09/17. Thrombocytopenia noted. Argatroban held for pic line, uneventful placement, Argatroban restarted. Start Coumadin tonight, no other procedures pending. Discussed need to continue anticoagulation atleast 3 months. Planning on home care to draw pt/inr or to come to hematology clinic. Pt also have egg buyer who can monitor. 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 Jerome is a 76-year-old woman who presented with generalized weakness on 03/11/2017. She has a history of thrombocytopenia reported by the patient and her during her cataract surgery. Her platelet count on admission was 148,000. It continued to trend down. She is noted to have started heparin on 03/14 as well as March 17. She had gradual decrease of platelet count temporarily related to starting heparin protocol. Assessment 76 y/o female with thrombocytopenia. 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 resume Argatroban 2. resume coumadin at 1mg PO daily. 3. Monitor platelets. Attending Statement The exam, history, and the medical decision-making described in the above note were completed with the assistance of the mid-level provider. I reviewed and agree with the findings presented. I attest that I had a [id number] encounter with the patient on the same day, and personally performed and documented my assessment and findings in the medical record. Pt seen and examined. Goal INR 2 off Argatroban. No bleeding. Continue to monitor platelets that trending down. Romy Oropeza April 11, 2017 10:34 Mojgan Mcginnis MD April 11, 2017 18:01
[2017-04-11] MEDS: cefTRIAXone INJ 2,000 MG in SODIUM CHLORIDE 0.9% INJ 100 ML IV SCH (12:49)
--- NOTE | 2017-04-11 13:09 | HHI.NPPN ---
Subjective History of Present Illness 76 Year old W Female with ARF, Biliary Cirrhosis, streptococcus Viridans sepsis Additional Remarks Patient is alert, not in distress, started eating better. Review of Systems General Constitutional: Fatigue Objective Data Data 04/10/17 04/11/17 19:00 07:00 Intake Total 240 ml 0 ml Output Total 3000 ml 200 ml Balance -2760 ml -200 ml Intake Oral 240 ml 0 ml Output Urine Total 200 ml Hemodialysis 3000 ml # Voids 1 # Bowel Movements 1 Vital Signs Date Time Temp Pulse Resp B/P Pulse Ox O2 Delivery O2 Flow Rate FiO2 04/11/17 08:00 98.1 85 20 123/64 95 04/11/17 04:34 98.2 93 18 133/58 97 04/11/17 00:00 Room Air 04/11/17 00:00 99.1 99 108/55 95 04/10/17 20:45 Room Air 04/10/17 20:17 117 04/10/17 20:00 98.4 99 16 155/65 97 -: 04/11/17 0600 04/11/17 0600 Physical Exam General Appearance: No Acute Distress, Comfortable, Anxious Neck Neck Exam: Neck Supple Pulmonary Resp Exam: Breath Sounds Equal, No Distress, Rhonchi, Decreased Bases Cardiology CV Exam: Irregular Gastrointestinal/Abdomen GI Exam: Soft, Non-Tender, Bowel Sounds Present Extremeties Extremities Exam: Moderate Edema Neurologic Neuro Exam: Alert, Awake, Oriented Psychiatric Psych Exam: Appropriate Responses Assessment/Plan Problem List: (1) Acute renal failure Plan: This is ARF, edema persists Non oliguric, on Bumex. 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 Urine out put is better and Creatinine improving. Possibly has some renal recovery. but due to edema and fluid accumulation with Liver disease likely need HD as out pt she can be discharged. 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
[2017-04-11] MEDS: WARFARIN SOD 1 MG TAB PO SCH (16:46)
[2017-04-11] MEDS: ATORVASTATIN 10 MG TAB PO SCH (20:25)
[2017-04-11] MEDS: LOPERAMIDE HCL 2 MG CAP PO PRN (20:25)
[2017-04-11] MEDS: ACETAMINOPHEN/HYDROcodone 325 MG/5 MG TAB PO PRN (20:26)
[2017-04-11 20:38] LABS: APTT (PATIENT) 82.8 SEC (24.3-30.1)
--- NOTE | 2017-04-11 23:57 | HHI.PR ---
Subjective Remarks Patient seen the morning of 04/11. Patient says she is feeling all right. She wishes to go home. Bleeding from left arm has stopped. She denies any chest pain, shortness of breath, nausea, vomiting. Positive bowel movement. Discussed with hematology. Awaiting therapeutic INR. Objective Vital Signs Date Time Temp Pulse Resp B/P Pulse Ox O2 Delivery O2 Flow Rate FiO2 04/11/17 20:01 Room Air 04/11/17 20:00 97.6 61 18 118/62 98 04/11/17 16:00 98.1 60 20 130/55 98 04/11/17 12:00 97.5 109 20 131/74 95 04/11/17 09:12 Room Air 04/11/17 09:12 76 04/11/17 08:00 98.1 85 20 123/64 95 04/11/17 04:34 98.2 93 18 133/58 97 04/11/17 00:00 Room Air 04/11/17 00:00 99.1 99 108/55 95 I/O 04/10/17 04/10/17 04/10/17 04/11/17 04/11/17 04/11/17 07:00 15:00 23:00 07:00 15:00 23:00 Intake Total 184 ml 240 ml 0 ml 480 ml Output Total 500 ml 3200 ml 300 ml Balance -316 ml 240 ml -3200 ml 180 ml Intake Oral 120 ml 240 ml 0 ml 480 ml IV Total 64 ml Output Urine Total 500 ml 200 ml 300 ml Hemodialysis 3000 ml # Voids 1 1 # Bowel Movements 1 1 2 0 Result Diagram: 04/11/17 0604/11/17 06 Objective Remarks GENERAL: patient sitting up in chair. Appears comfortable. SKIN: Warm and dry. HEAD: Normocephalic. EYES: No scleral icterus. No injection or drainage. NECK: Supple, trachea midline. No JVD. CARDIOVASCULAR: Regular rate and rhythm without murmurs, gallops, or rubs. RESPIRATORY: Breath sounds equal bilaterally. No accessory muscle use. GASTROINTESTINAL: Abdomen soft, non-tender, nondistended. MUSCULOSKELETAL: No cyanosis. +1 peripheral edema. No erythema. BACK: Nontender without obvious deformity. No CVA tenderness. A/P Assessment and Plan ==== 04/11/17 Continue to monitor INR Continue IV antibiotics 76 yrs old female with history of severe aortic stenosis s/p AVR w/bovine valve , primary biliary cirrhosis, diabetes mellitus, presented to the ED on 03/11 secondary to fatigue/weakness, found to have bacteremia with infective endocarditis. 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 -ID consulted -Continue IV Rocephin until 04/25 -Repeat cultures negative to date -Cardiology ff -IV antibiotic infusion has been arranged with [facility] -PICC care -Awaiting therapeutic INR area and //NATALIA: Cr as high as 3.78, baseline 0.9 February2017 -Nephrology consulted, patient continues to receive hemodialysis -PermCath placed on 04/07 -continue Bumex and Aldactone, fluid restrictions and renal diet. -Continue to monitor renal function. Dialysis as per nephrology. 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 Monitor CBC patient with worsening thrombocytopenia. INR 6 today. Patient had transient bleeding over PICC line site controlled with pressure. Discussed with RN, hold Argatroban and repeat INR in 4 hours. If INR under 2, restart Argatroban and repeat PT/INR in the morning and to hold argatroban drip 4 hours before. -Continue to monitor INR. Management as per hematology. Appreciate assistance. //Hyperlipidemia-continue statins //Biliary Cirrhosis, stage IV-continue Bumex and Lasix, continue Mckenna //DM2-continue long-acting Levemir and sliding scale insulin, A1c 6.5. Hyperglycemia secondary to noncompliance. Increase Levemir to 14 units daily. Diabetic education //Hypothyroidism-Continue supplementation //GERD/Hiatal Hernia-Continue PPI //Diarrhea-improving. C. difficile PCR negative. Imodium prn. //DVT Prophylaxis: SCDs, Coumadin and IV Argatroban for now Discharge Planning Discharge when cleared by hematology -home health for antibiotics infusion Leonardo Callahan MD April 11, 2017 23:57
[2017-04-12] VITALS: BP 100/52; PULSE 54; RESP 18; TEMP 97.7; O2SAT 98
[2017-04-12 04:00] VITALS: BP 110/48; PULSE 69; RESP 18; TEMP 98; O2SAT 97
[2017-04-12] MEDS: CHLORHEXIDINE GLUCONATE 2 % 1 PACK (2 CLOTHS) TOP SCH (04:00)
[2017-04-12] MEDS: LEVOTHYROXINE SODIUM 75 MCG TAB PO SCH (05:34)
[2017-04-12] MEDS: SODIUM CHLORIDE 0.9% FLUSH 10 ML FLUSH IVF SCH ×4 (05:35→22:00)
[2017-04-12] MEDS: INSULIN ASPART SUPPLEMENTAL SCALE SQ SCH ×4 (05:36→22:04)
[2017-04-12 06:26] LABS: APTT (PATIENT) 72.8 SEC (24.3-30.1)
[2017-04-12 06:36] LABS: BICARBONATE 25.8 MEQ/L (21.0-32.0)
[2017-04-12 07:00] LABS: CALCIUM-PROTEIN CORRECTED 7.8 MG/DL (8.5-10.1)
[2017-04-12 08:00] VITALS: BP 102/62; PULSE 107; PULSE 89; RESP 20; TEMP 97.8; O2SAT 95
[2017-04-12 08:06] LABS: INTERNATIONAL NORMALIZED RATIO 4.4 RATIO; PROTHROMBIN TIME - PATIENT 52.4 SEC (9.8-11.6)
[2017-04-12] MEDS: DOCUSATE SODIUM 100 MG CAP PO SCH ×2 (09:00→20:58)
[2017-04-12] MEDS: SODIUM CHLORIDE 0.9% FLUSH 10 ML FLUSH IV FLUSH SCH ×2 (09:29→21:00)
[2017-04-12] MEDS: POTASSIUM CHLORIDE 20 MEQ CONTROLLED RELEASE TAB PO SCH ×2 (09:29→20:58)
[2017-04-12] MEDS: MULTIVITAMIN TAB PO SCH (09:30)
[2017-04-12] MEDS: DILTIAZEM HCL 60 MG TAB PO SCH ×3 (09:30→17:29)
[2017-04-12] MEDS: SPIRONOLACTONE 25 MG TAB PO SCH (09:32)
[2017-04-12] MEDS: BUMETANIDE 1 MG TAB PO SCH (09:32)
[2017-04-12] MEDS: CALCIUM CARBONATE 1.25 GM (CA 500 MG) TAB PO SCH ×3 (09:32→17:41)
[2017-04-12] MEDS: URSODIOL PO SCH ×2 (09:33→20:59)
[2017-04-12] MEDS: PANTOPRAZOLE SOD 40 MG DELAYED RELEASE TAB PO SCH (09:33)
[2017-04-12] MEDS: INSULIN DETEMIR 100 UNITS/ML VIAL SQ SCH (09:43)
--- NOTE | 2017-04-12 10:10 | PD.ONC.PN ---
Subjective Subjective Remarks Afebrile overnight. Patient resting in chair. No bleeding. Waiting to hear if she will have dialysis today. Objective Data Date Time Temp Pulse Resp B/P Pulse Ox O2 Delivery O2 Flow Rate FiO2 04/12/17 08:00 97.8 89 20 102/62 95 04/12/17 04:00 98.0 69 18 110/48 97 04/12/17 00:00 97.7 54 18 100/52 98 04/11/17 20:02 87 04/11/17 20:01 Room Air 04/11/17 20:00 97.6 61 18 118/62 98 04/11/17 16:00 98.1 60 20 130/55 98 04/11/17 12:00 97.5 109 20 131/74 95 04/12/17 04/12/17 04/12/17 07:00 15:00 23:00 Output Total 450 ml Balance -450 ml Result Diagram: 04/11/17 0600 04/12/17 0548 Laboratory Results Laboratory Tests Test 04/11/17 04/11/17 04/12/17 20:13 23:57 05:48 Activated Partial 82.8 SEC 85.0 SEC 72.8 SEC Thromboplast Time Prothrombin Time 52.4 SEC Prothromb Time International 4.4 RATIO Ratio Sodium Level 140 MEQ/L Potassium Level 4.0 MEQ/L Chloride Level 107 MEQ/L Carbon Dioxide Level 25.8 MEQ/L Anion Gap 7 MEQ/L Blood Urea Nitrogen 24 MG/DL Creatinine 1.54 MG/DL Estimat Glomerular Filtration 33 ML/MIN Rate Random Glucose 117 MG/DL Calcium Level 6.6 MG/DL Protein Corrected Calcium 7.8 MG/DL Total Protein 4.7 GM/DL Administered Medications Medications (Trade) Dose Ordered Sig/Tunde Route PRN Reason Start Time Stop Time Status Last Admin Dose Admin Atorvastatin Calcium (Lipitor) 10 mg HS PO 03/12/17 21:00 04/11/17 20:25 Levothyroxine Sodium (Synthroid) 75 mcg DAILY@06 PO 03/14/17 06:00 04/12/17 05:34 Sodium Chloride (NS Flush) DAILY IVF 03/13/17 09:00 04/12/17 09:34 Sodium Chloride (NS Flush) UNSCH PRN IVF SEE PROTOCOL 03/13/17 08:00 03/14/17 09:13 Sodium Chloride (NS Flush) 2 ml UNSCH PRN IV FLUSH FLUSH AFTER USING IV ACCESS 03/13/17 08:30 03/14/17 09:13 Sodium Chloride (NS Flush) 2 ml BID IV FLUSH 03/13/17 09:00 04/12/17 09:29 Acetaminophen (Tylenol) 650 mg Q6H PRN PO PAIN 1-2 AND/OR FEVER >101F 03/13/17 08:30 04/08/17 13:11 Acetaminophen/ Hydrocodone Bitart ([place] 5-325 Mg) 1 tab Q4H PRN PO PAIN SCALE 3 TO 5 03/13/17 08:30 04/11/17 20:26 Ondansetron HCl (Zofran Inj) 4 mg Q6H PRN IV NAUSEA OR VOMITING 03/13/17 08:30 04/07/17 11:31 Docusate Sodium (Colace) 100 mg BID PO 03/13/17 09:00 04/02/17 08:25 Miscellaneous Information 1 Q361D XX 03/13/17 08:30 03/14/17 09:14 Chlorhexidine Gluconate (Chlorhexidine 2% Cloth) Taper DAILY@04 TOP 03/14/17 04:00 03/10/18 03:59 04/02/17 04:00 Multivitamins 1 tab 1 tab DAILY PO 03/13/17 11:30 04/12/17 09:30 Ceftriaxone Sodium/Sodium Chloride (Rocephin Inj/NS Inj) 100 ml @ 200 mls/hr Q24H IV 03/14/17 13:00 04/11/17 12:49 Patient Own Medication PT OWN MED: Ursod... BID PO 03/15/17 13:00 04/12/17 09:33 Diltiazem HCl (Cardizem) 60 mg TID PO 03/19/17 18:00 04/12/17 09:30 Calcium Carbonate 1000 mg 1,000 mg TID PO 03/20/17 09:00 04/12/17 09:32 Sodium Chloride 1,000 ml @ 0 mls/hr Q0M PRN IV For Prime & Rinse Back 03/21/17 11:22 04/10/17 15:31 Sodium Chloride (NS 1000 ml Inj) 1,000 ml @ 200 mls/hr Q5H PRN IV WITH DIALYSIS 03/21/17 11:22 03/27/17 12:24 Gentamicin Sulfate (Gentamicin (Dialysis) Inj) 20 mg UNSCH PRN IV WITH DIALYSIS 03/21/17 11:30 04/10/17 15:31 Epoetin Derrell (Epogen Inj) 4,000 units UNSCH PRN IV WITH DIALYSIS 03/21/17 11:30 04/10/17 15:31 Pantoprazole Sodium (Protonix) 40 mg DAILY PO 03/24/17 11:00 04/12/17 09:33 Calcium Carbonate (Tums Chew) 500 mg Q8HR PRN CHEW HEARTBURN 03/24/17 11:00 03/24/17 11:01 Potassium Chloride (KCl) 20 meq Q12HR PO 03/31/17 21:00 04/12/17 09:29 Spironolactone (Aldactone) 25 mg DAILY PO 04/01/17 13:30 04/12/17 09:32 Lorazepam (Ativan) 0.5 mg Q6H PRN PO anxiety 04/02/17 00:00 04/03/17 18:53 Loperamide HCl (Imodium) 2 mg Q6H PRN PO diarrhea 04/06/17 13:00 04/11/17 20:25 Sodium Chloride Q8HR IVF 04/09/17 14:00 04/12/17 05:35 Argatroban/Sodium Chloride (Novastan Inj/NS 250 ml Inj) 250 ml @ 0 mls/hr TITRATE IV 04/09/17 20:00 04/11/17 21:43 Insulin Detemir (Levemir Inj) 14 units DAILYAC SQ 04/10/17 09:40 04/12/17 09:43 Warfarin Sodium (Coumadin) 1 mg DAILY@16 PO 04/10/17 16:00 04/11/17 16:46 Bumetanide (Bumetanide) 1 mg DAILY PO 04/12/17 09:00 04/12/17 09:32 Objective Remarks GENERAL: Pleasant elderly female, sitting up in bed in nad. SKIN: Warm and dry. bandage on left arm is c/d/i. HEAD: Normocephalic. EYES: no injection or drainage. NECK: Supple, trachea midline. CARDIOVASCULAR: +S1/S2 RESPIRATORY: Breath sounds equal bilaterally. No accessory muscle use. GASTROINTESTINAL: Abdomen soft, non-tender, nondistended. EXTREMITIES: No cyanosis NEURO: awake and alert, normal speech. Assessment/Plan Problem List: (1) Thrombocytopenia Status: Chronic Plan: 04/12: INR=4.4 will hold Argatroban for four hours and recheck INR. also waiting on CBC to check platelet count. 04/11: resume Argatroban and coumadin. monitor for bleeding. 04/10/17. Noted INR 6.0, ptt 72 seconds. Argatroban on hold this AM for bleeding, R arm bleed now stopped.. Need to decrease Coumadin dose, Continue Argatroban this afternoon, note platelet decreased during interruption anticoagulant therapy. 04/09/17. Thrombocytopenia noted. Argatroban held for pic line, uneventful placement, Argatroban restarted. Start Coumadin tonight, no other procedures pending. Discussed need to continue anticoagulation atleast 3 months. Planning on home care to draw pt/inr or to come to hematology clinic. 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 Jerome is a 76-year-old woman who presented with generalized weakness on 03/11/2017. She has a history of thrombocytopenia reported by the patient and her during her cataract surgery. Her platelet count on admission was 148,000. It continued to trend down. She is noted to have started heparin on 03/14 as well as March 17. She had gradual decrease of platelet count temporarily related to starting heparin protocol. Assessment 76 y/o female with thrombocytopenia. 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 hold Argatroban and check INR off Argatroban. 2. check CBC 3. continue Coumadin 1mg PO daily Attending Statement The exam, history, and the medical decision-making described in the above note were completed with the assistance of the mid-level provider. I reviewed and agree with the findings presented. I attest that I had a [id number] encounter with the patient on the same day, and personally performed and documented my assessment and findings in the medical record. Romy Oropeza April 12, 2017 10:10 Karthikeyan Baum MD April 12, 2017 23:50
[2017-04-12 10:51] LABS: MEAN CELL VOLUME 87.3 FL (80.0-100.0); MEAN CORPUSCULAR HEMOGLOBIN 28.9 PG (27.0-34.0); PLATELET COUNT 89 TH/MM3 (150-450); RED BLOOD COUNT 3.44 MIL/MM3 (4.00-5.30); RED CELL DISTRIBUTION WIDTH 17.5 % (11.6-17.2); WHITE BLOOD COUNT 13.9 TH/MM3 (4.0-11.0)
[2017-04-12 10:53] LABS: REVIEW FLAG FINAL
[2017-04-12 12:00] VITALS: BP 125/62; PULSE 76; RESP 20; TEMP 97.3; O2SAT 97
[2017-04-12] MEDS: cefTRIAXone INJ 2,000 MG in SODIUM CHLORIDE 0.9% INJ 100 ML IV SCH (12:06)
[2017-04-12] MEDS: LOPERAMIDE HCL 2 MG CAP PO PRN ×2 (13:56→20:58)
[2017-04-12 14:41] LABS: INTERNATIONAL NORMALIZED RATIO 3.1 RATIO; PROTHROMBIN TIME - PATIENT 35.6 SEC (9.8-11.6)
--- NOTE | 2017-04-12 15:27 | HHI.NPPN ---
Subjective History of Present Illness 76 Year old W Female with ARF, Biliary Cirrhosis, streptococcus Viridans sepsis Additional Remarks Patient is alert, not in distress, started eating better. Review of Systems General Constitutional: Fatigue Objective Data Data 04/11/17 04/12/17 19:00 07:00 Intake Total 480 ml Output Total 300 ml 450 ml Balance 180 ml -450 ml Intake Oral 480 ml Output Urine Total 300 ml 450 ml # Voids 1 # Bowel Movements 2 0 Vital Signs Date Time Temp Pulse Resp B/P Pulse Ox O2 Delivery O2 Flow Rate FiO2 04/12/17 12:00 97.3 76 20 125/62 97 04/12/17 08:00 97.8 89 20 102/62 95 04/12/17 04:00 98.0 69 18 110/48 97 04/12/17 00:00 97.7 54 18 100/52 98 04/11/17 20:02 87 04/11/17 20:01 Room Air 04/11/17 20:00 97.6 61 18 118/62 98 04/11/17 16:00 98.1 60 20 130/55 98 -: 04/12/17 1015 04/12/17 0548 Physical Exam General Appearance: No Acute Distress, Comfortable, Anxious Neck Neck Exam: Neck Supple Pulmonary Resp Exam: Breath Sounds Equal, No Distress, Rhonchi, Decreased Bases Cardiology CV Exam: Irregular Gastrointestinal/Abdomen GI Exam: Soft, Non-Tender, Bowel Sounds Present Extremeties Extremities Exam: Moderate Edema Neurologic Neuro Exam: Alert, Awake, Oriented Psychiatric Psych Exam: Appropriate Responses Assessment/Plan Problem List: (1) Acute renal failure Plan: This is ARF, edema persists Non oliguric, on Bumex. switched to oral Aldactone 25 mg daily cr 1.5 since she is not generating a lot of waste we may cut her dialysis to twice a week, next dialysis likely Friday for edema HIT pos. Urine out put is better and Creatinine improving. Possibly has some renal recovery. but due to edema and fluid accumulation with Liver disease likely need HD as out pt she can be discharged. 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
[2017-04-12 16:00] VITALS: BP 122/60; PULSE 66; RESP 20; TEMP 97.6; O2SAT 98
[2017-04-12] MEDS: WARFARIN SOD 1 MG TAB PO SCH (16:00)
[2017-04-12] MEDS: ACETAMINOPHEN 325 MG TAB PO PRN (17:25)
[2017-04-12 20:00] VITALS: BP 113/56; PULSE 56; RESP 18; TEMP 98; O2SAT 99
[2017-04-12] MEDS: ACETAMINOPHEN/HYDROcodone 325 MG/5 MG TAB PO PRN (20:57)
[2017-04-12] MEDS: ATORVASTATIN 10 MG TAB PO SCH (21:00)
--- NOTE | 2017-04-12 23:28 | HHI.PR ---
Subjective Remarks Patient seen today around noon. Says she is feeling all right. Denies any chest pain or shortness of breath. Would like to go home. Objective Vital Signs Date Time Temp Pulse Resp B/P Pulse Ox O2 Delivery O2 Flow Rate FiO2 04/12/17 20:00 98.0 56 18 113/56 99 04/12/17 16:00 97.6 66 20 122/60 98 04/12/17 12:00 97.3 76 20 125/62 97 04/12/17 08:00 97.8 89 20 102/62 95 04/12/17 08:00 107 04/12/17 04:00 98.0 69 18 110/48 97 04/12/17 00:00 97.7 54 18 100/52 98 I/O 04/11/17 04/11/17 04/11/17 04/12/17 04/12/17 04/12/17 07:00 15:00 23:00 07:00 15:00 23:00 Intake Total 480 ml 577 ml 6 ml Output Total 300 ml 450 ml 200 ml Balance 180 ml -450 ml 377 ml 6 ml Intake Oral 480 ml 465 ml IV Total 112 ml 6 ml Output Urine Total 300 ml 450 ml 200 ml # Voids 1 1 # Bowel Movements 2 0 2 Result Diagram: 04/12/17 1015 04/12/17 0548 Objective Remarks GENERAL: patient sitting up in chair. Appears comfortable. SKIN: Warm and dry. HEAD: Normocephalic. EYES: No scleral icterus. No injection or drainage. NECK: Supple, trachea midline. No JVD. CARDIOVASCULAR: Regular rate and rhythm without murmurs, gallops, or rubs. RESPIRATORY: Breath sounds equal bilaterally. No accessory muscle use. GASTROINTESTINAL: Abdomen soft, non-tender, nondistended. MUSCULOSKELETAL: No cyanosis. +2 peripheral edema. No erythema.. Instructed patient on elevating extremities. BACK: Nontender without obvious deformity. No CVA tenderness. A/P Assessment and Plan ==== 04/12/17 After discontinuation of Atrovent every 4 hours, INR is 3.1, slightly supratherapeutic. Discussed with hematology. Will hold are detrimental drip, check INR tomorrow. Have ordered home health for daily INR checks. -patient with relatively stable renal function today. Nephrology holding off on dialysis. Slight worsening in bilateral lower extremity edema. Patient will elevate extremities as able. Monitor 76 yrs old female with history of severe aortic stenosis s/p AVR w/bovine valve , primary biliary cirrhosis, diabetes mellitus, presented to the ED on 03/11 secondary to fatigue/weakness, found to have bacteremia with infective endocarditis. 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 -ID consulted -Continue IV Rocephin until 04/25 -Repeat cultures negative to date -Cardiology ff -IV antibiotic infusion has been arranged with [facility] -PICC care -Follow up INR on 04/13. //NATALIA: Cr as high as 3.78, baseline 0.9 February2017 -Nephrology consulted, patient continues to receive hemodialysis -PermCath placed on 04/07 -continue Bumex and Aldactone, fluid restrictions and renal diet. -Continue to monitor renal function. Dialysis as per nephrology. 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 Monitor CBC patient with worsening thrombocytopenia. INR 6 today. Patient had transient bleeding over PICC line site controlled with pressure. Discussed with RN, hold Argatroban and repeat INR in 4 hours. If INR under 2, restart Argatroban and repeat PT/INR in the morning and to hold argatroban drip 4 hours before. -Continue to monitor INR. Management as per hematology. Appreciate assistance. //Hyperlipidemia-continue statins //Biliary Cirrhosis, stage IV-continue Bumex and Lasix, continue Mckenna //DM2-continue long-acting Levemir and sliding scale insulin, A1c 6.5. Hyperglycemia secondary to noncompliance. Increase Levemir to 14 units daily. Diabetic education //Hypothyroidism-Continue supplementation //GERD/Hiatal Hernia-Continue PPI //Diarrhea-improving. C. difficile PCR negative. Imodium prn. //DVT Prophylaxis: SCDs, Coumadin and IV Argatroban for now Discharge Planning Discharge when cleared by hematology -home health for antibiotics infusion Leonardo Callahan MD April 12, 2017 23:28
[2017-04-13] VITALS (7 sets, daily range): BP systolic 111–124; BP diastolic 55–69; PULSE 51–85; RESP 16–20; TEMP 97–98; O2SAT 94–99
[2017-04-13] MEDS: CHLORHEXIDINE GLUCONATE 2 % 1 PACK (2 CLOTHS) TOP SCH (04:00)
[2017-04-13] MEDS: SODIUM CHLORIDE 0.9% FLUSH 10 ML FLUSH IVF SCH ×4 (05:28→22:24)
[2017-04-13] MEDS: LEVOTHYROXINE SODIUM 75 MCG TAB PO SCH (05:28)
[2017-04-13] MEDS: INSULIN ASPART SUPPLEMENTAL SCALE SQ SCH ×4 (06:11→21:00)
[2017-04-13 06:22] LABS: HEMATOCRIT 27.3 % (35.0-46.0); MEAN CELL VOLUME 87.2 FL (80.0-100.0); MEAN CORPUSCULAR HEMOGLOBIN 28.9 PG (27.0-34.0); MEAN CORPUSCULAR HGB CONC 33.1 % (32.0-36.0); PLATELET COUNT 79 TH/MM3 (150-450); RED BLOOD COUNT 3.13 MIL/MM3 (4.00-5.30); WHITE BLOOD COUNT 9.4 TH/MM3 (4.0-11.0)
[2017-04-13 06:42] LABS: APTT (PATIENT) 43.4 SEC (24.3-30.1); PROTHROMBIN TIME - PATIENT 22.6 SEC (9.8-11.6)
[2017-04-13 06:57] LABS: BICARBONATE 32.1 MEQ/L (21.0-32.0); POTASSIUM 4.8 MEQ/L (3.5-5.1)
[2017-04-13 07:06] LABS: REVIEW FLAG FINAL
[2017-04-13] MEDS: SPIRONOLACTONE 25 MG TAB PO SCH (08:14)
[2017-04-13] MEDS: PANTOPRAZOLE SOD 40 MG DELAYED RELEASE TAB PO SCH (08:15)
[2017-04-13] MEDS: SODIUM CHLORIDE 0.9% FLUSH 10 ML FLUSH IV FLUSH SCH ×2 (08:15→22:24)
[2017-04-13] MEDS: CALCIUM CARBONATE 1.25 GM (CA 500 MG) TAB PO SCH ×3 (08:15→17:05)
[2017-04-13] MEDS: DILTIAZEM HCL 60 MG TAB PO SCH ×3 (08:15→17:05)
[2017-04-13] MEDS: DOCUSATE SODIUM 100 MG CAP PO SCH ×2 (08:15→21:00)
[2017-04-13] MEDS: POTASSIUM CHLORIDE 20 MEQ CONTROLLED RELEASE TAB PO SCH ×2 (08:15→22:24)
[2017-04-13] MEDS: BUMETANIDE 1 MG TAB PO SCH (08:15)
[2017-04-13] MEDS: MULTIVITAMIN TAB PO SCH (08:15)
[2017-04-13] MEDS: URSODIOL PO SCH ×2 (08:16→22:23)
[2017-04-13] MEDS: INSULIN DETEMIR 100 UNITS/ML VIAL SQ SCH (08:23)
--- NOTE | 2017-04-13 08:44 | PD.ONC.PN ---
Subjective Subjective Remarks Afebrile overnight. patient states she slept well last night. Swelling in her legs is improving. No bleeding. Objective Data Date Time Temp Pulse Resp B/P Pulse Ox O2 Delivery O2 Flow Rate FiO2 04/13/17 04:00 97.0 52 16 120/69 99 04/13/17 00:00 98.0 51 16 122/62 99 04/12/17 20:00 98.0 56 18 113/56 99 04/12/17 16:00 97.6 66 20 122/60 98 04/12/17 12:00 97.3 76 20 125/62 97 04/13/17 04/13/17 04/13/17 07:00 15:00 23:00 Intake Total 320 ml Balance 320 ml Result Diagram: 04/13/17 0555 04/13/17 0555 Laboratory Results Laboratory Tests Test 04/12/17 04/12/17 04/13/17 10:15 14:00 05:55 White Blood Count 13.9 TH/MM3 9.4 TH/MM3 Red Blood Count 3.44 MIL/MM3 3.13 MIL/MM3 Hemoglobin 9.9 GM/DL 9.0 GM/DL Hematocrit 30.0 % 27.3 % Mean Corpuscular Volume 87.3 FL 87.2 FL Mean Corpuscular Hemoglobin 28.9 PG 28.9 PG Mean Corpuscular Hemoglobin 33.0 % 33.1 % Concent Red Cell Distribution Width 17.5 % 17.0 % Platelet Count 89 TH/MM3 79 TH/MM3 Mean Platelet Volume 7.5 FL 7.8 FL Prothrombin Time 35.6 SEC 22.6 SEC Prothromb Time International 3.1 RATIO 2.0 RATIO Ratio Activated Partial 43.4 SEC Thromboplast Time Sodium Level 133 MEQ/L Potassium Level 4.8 MEQ/L Chloride Level 96 MEQ/L Carbon Dioxide Level 32.1 MEQ/L Anion Gap 5 MEQ/L Blood Urea Nitrogen 33 MG/DL Creatinine 2.18 MG/DL Estimat Glomerular Filtration 22 ML/MIN Rate Random Glucose 93 MG/DL Calcium Level 8.0 MG/DL Administered Medications Medications (Trade) Dose Ordered Sig/Tunde Route PRN Reason Start Time Stop Time Status Last Admin Dose Admin Atorvastatin Calcium (Lipitor) 10 mg HS PO 03/12/17 21:00 04/12/17 21:00 Levothyroxine Sodium (Synthroid) 75 mcg DAILY@06 PO 03/14/17 06:00 04/13/17 05:28 Sodium Chloride (NS Flush) DAILY IVF 03/13/17 09:00 04/12/17 09:34 Sodium Chloride (NS Flush) UNSCH PRN IVF SEE PROTOCOL 03/13/17 08:00 03/14/17 09:13 Sodium Chloride (NS Flush) 2 ml UNSCH PRN IV FLUSH FLUSH AFTER USING IV ACCESS 03/13/17 08:30 03/14/17 09:13 Sodium Chloride (NS Flush) 2 ml BID IV FLUSH 03/13/17 09:00 04/13/17 08:15 Acetaminophen (Tylenol) 650 mg Q6H PRN PO PAIN 1-2 AND/OR FEVER >101F 03/13/17 08:30 04/12/17 17:25 Acetaminophen/ Hydrocodone Bitart ([place] 5-325 Mg) 1 tab Q4H PRN PO PAIN SCALE 3 TO 5 03/13/17 08:30 04/12/17 20:57 Ondansetron HCl (Zofran Inj) 4 mg Q6H PRN IV NAUSEA OR VOMITING 03/13/17 08:30 04/07/17 11:31 Docusate Sodium (Colace) 100 mg BID PO 03/13/17 09:00 04/13/17 08:15 Miscellaneous Information 1 Q361D XX 03/13/17 08:30 03/14/17 09:14 Chlorhexidine Gluconate (Chlorhexidine 2% Cloth) Taper DAILY@04 TOP 03/14/17 04:00 03/10/18 03:59 04/02/17 04:00 Multivitamins 1 tab 1 tab DAILY PO 03/13/17 11:30 04/13/17 08:15 Ceftriaxone Sodium/Sodium Chloride (Rocephin Inj/NS Inj) 100 ml @ 200 mls/hr Q24H IV 03/14/17 13:00 04/12/17 12:06 Patient Own Medication PT OWN MED: Ursod... BID PO 03/15/17 13:00 04/13/17 08:16 Diltiazem HCl (Cardizem) 60 mg TID PO 03/19/17 18:00 04/13/17 08:15 Calcium Carbonate 1000 mg 1,000 mg TID PO 03/20/17 09:00 04/13/17 08:15 Sodium Chloride 1,000 ml @ 0 mls/hr Q0M PRN IV For Prime & Rinse Back 03/21/17 11:22 04/10/17 15:31 Sodium Chloride (NS 1000 ml Inj) 1,000 ml @ 200 mls/hr Q5H PRN IV WITH DIALYSIS 03/21/17 11:22 03/27/17 12:24 Gentamicin Sulfate (Gentamicin (Dialysis) Inj) 20 mg UNSCH PRN IV WITH DIALYSIS 03/21/17 11:30 04/10/17 15:31 Epoetin Derrell (Epogen Inj) 4,000 units UNSCH PRN IV WITH DIALYSIS 03/21/17 11:30 04/10/17 15:31 Pantoprazole Sodium (Protonix) 40 mg DAILY PO 03/24/17 11:00 04/13/17 08:15 Calcium Carbonate (Tums Chew) 500 mg Q8HR PRN CHEW HEARTBURN 03/24/17 11:00 03/24/17 11:01 Potassium Chloride (KCl) 20 meq Q12HR PO 03/31/17 21:00 04/13/17 08:15 Spironolactone (Aldactone) 25 mg DAILY PO 04/01/17 13:30 04/13/17 08:14 Lorazepam (Ativan) 0.5 mg Q6H PRN PO anxiety 04/02/17 00:00 04/03/17 18:53 Loperamide HCl (Imodium) 2 mg Q6H PRN PO diarrhea 04/06/17 13:00 04/12/17 20:58 Sodium Chloride Q8HR IVF 04/09/17 14:00 04/13/17 05:28 Argatroban/Sodium Chloride (Novastan Inj/NS 250 ml Inj) 250 ml @ 0 mls/hr TITRATE IV 04/09/17 20:00 04/11/17 21:43 Insulin Detemir (Levemir Inj) 14 units DAILYAC SQ 04/10/17 09:40 04/13/17 08:23 Warfarin Sodium (Coumadin) 1 mg DAILY@16 PO 04/10/17 16:00 04/12/17 16:00 Bumetanide (Bumetanide) 1 mg DAILY PO 04/12/17 09:00 04/13/17 08:15 Objective Remarks GENERAL: Pleasant female, sitting up in chair next to bed in nad. SKIN: Warm and dry. bandage on left arm is c/d/i. HEAD: Normocephalic. EYES: no injection or drainage. NECK: Supple, trachea midline. CARDIOVASCULAR: +S1/S2 RESPIRATORY: Breath sounds equal bilaterally. No accessory muscle use. GASTROINTESTINAL: Abdomen soft, non-tender, nondistended. EXTREMITIES: No cyanosis NEURO: awake and alert, normal speech. moving all extremities. Assessment/Plan Problem List: (1) Thrombocytopenia Status: Chronic Plan: 04/13: INR=2.0. platelet count with slight dip today. will give Coumadin 2mg PO today 04/12: INR=4.4 will hold Argatroban for four hours and recheck INR. also waiting on CBC to check platelet count. 04/11: resume Argatroban and coumadin. monitor for bleeding. 04/10/17. Noted INR 6.0, ptt 72 seconds. Argatroban on hold this AM for bleeding, R arm bleed now stopped.. Need to decrease Coumadin dose, Continue Argatroban this afternoon, note platelet decreased during interruption anticoagulant therapy. 04/09/17. Thrombocytopenia noted. Argatroban held for pic line, uneventful placement, Argatroban restarted. Start Coumadin tonight, no other procedures pending. Discussed need to continue anticoagulation at least 3 months. Planning on home care to draw pt/inr or to come to hematology clinic. Pt also have ply bander who can monitor. 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 Jerome is a 76-year-old woman who presented with generalized weakness on 03/11/2017. She has a history of thrombocytopenia reported by the patient and her during her cataract surgery. Her platelet count on admission was 148,000. It continued to trend down. She is noted to have started heparin on 03/14 as well as March 17. She had gradual decrease of platelet count temporarily related to starting heparin protocol. Assessment 76 y/o female with thrombocytopenia. 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 give Coumadin 2mg PO today 2. monitor CBC Attending Statement The exam, history, and the medical decision-making described in the above note were completed with the assistance of the mid-level provider. I reviewed and agree with the findings presented. I attest that I had a [id number] encounter with the patient on the same day, and personally performed and documented my assessment and findings in the medical record. Romy Oropeza April 13, 2017 08:44 Karthikeyan Baum MD April 13, 2017 23:56
[2017-04-13] MEDS: cefTRIAXone INJ 2,000 MG in SODIUM CHLORIDE 0.9% INJ 100 ML IV SCH (12:06)
--- NOTE | 2017-04-13 14:54 | HHI.NPPN ---
Subjective History of Present Illness 76 Year old W Female with ARF, Biliary Cirrhosis, streptococcus Viridans sepsis Additional Remarks Patient is alert, not in distress, started eating better. Review of Systems General Constitutional: Fatigue Objective Data Data 04/12/17 04/13/17 19:00 07:00 Intake Total 577 ml 326 ml Output Total 200 ml Balance 377 ml 326 ml Intake Oral 465 ml 300 ml IV Total 112 ml 26 ml Output Urine Total 200 ml # Voids 1 2 # Bowel Movements 2 1 Vital Signs Date Time Temp Pulse Resp B/P Pulse Ox O2 Delivery O2 Flow Rate FiO2 04/13/17 12:50 97.6 79 18 122/62 94 04/13/17 08:02 97.9 85 18 120/68 97 04/13/17 04:00 97.0 52 16 120/69 99 04/13/17 00:00 98.0 51 16 122/62 99 04/12/17 20:00 98.0 56 18 113/56 99 04/12/17 16:00 97.6 66 20 122/60 98 -: 04/13/17 0555 04/13/17 0555 Physical Exam General Appearance: No Acute Distress, Comfortable, Anxious Neck Neck Exam: Neck Supple Pulmonary Resp Exam: Breath Sounds Equal, No Distress, Rhonchi, Decreased Bases Cardiology CV Exam: Irregular Gastrointestinal/Abdomen GI Exam: Soft, Non-Tender, Bowel Sounds Present Extremeties Extremities Exam: Moderate Edema Neurologic Neuro Exam: Alert, Awake, Oriented Psychiatric Psych Exam: Appropriate Responses Assessment/Plan Problem List: (1) Acute renal failure Plan: This is ARF, edema better Non oliguric, on Bumex. switched to oral Aldactone 25 mg daily cr 2.18 since she is not generating a lot of waste we may cut her dialysis to twice a week, next dialysis likely Friday if Cr higher HIT pos. Urine out put is better and Creatinine slightly worse Possibly has some renal recovery. but due to edema and fluid accumulation with Liver disease likely need HD as out pt she can be discharged. A PICC line placed (2) Streptococcal bacteremia Plan: Infectious disease is following she is on broad-spectrum antibiotic ceftriaxone (3) Atrial flutter with rapid ventricular response Plan: Off diltiazem (4) Biliary liver cirrhosis Plan: Follows with GI (5) Thrombocytopenia Plan: HIT positive Hematology fu Argatroban Problem Qualifiers (1) Acute renal failure: Qualified Code: N17.9 - Acute renal failure, unspecified acute renal failure type Molly Peng MD April 13, 2017 14:54
[2017-04-13] MEDS ORDERED: WARFARIN SOD 2 MG TAB PO ONE (16:00)
[2017-04-13] MEDS: WARFARIN SOD 1 MG TAB PO SCH (16:53)
[2017-04-13] MEDS: ONDANSETRON HCL 4 MG/2 ML VIAL IV PRN (17:47)
[2017-04-13] MEDS: ATORVASTATIN 10 MG TAB PO SCH (22:24)
[2017-04-13] MEDS: ACETAMINOPHEN/HYDROcodone 325 MG/5 MG TAB PO PRN (22:28)
--- NOTE | 2017-04-13 23:01 | HHI.PR ---
Subjective Remarks Patient seen today around 1 PM. Says she is feeling all right. She did have some nausea this morning which resolved. Bilateral lower extremity edema improved with elevation. She denies any chest pain or shortness of breath. Objective Vital Signs Date Time Temp Pulse Resp B/P Pulse Ox O2 Delivery O2 Flow Rate FiO2 04/13/17 21:03 97.7 62 20 111/55 97 04/13/17 17:17 97.8 62 18 124/64 98 04/13/17 16:23 Room Air 04/13/17 12:50 97.6 79 18 122/62 94 04/13/17 08:02 97.9 85 18 120/68 97 04/13/17 04:00 97.0 52 16 120/69 99 04/13/17 00:00 98.0 51 16 122/62 99 I/O 04/12/17 04/12/17 04/12/17 04/13/17 04/13/17 04/13/17 07:00 15:00 23:00 07:00 15:00 23:00 Intake Total 577 ml 6 ml 320 ml Output Total 450 ml 200 ml 900 ml Balance -450 ml 377 ml 6 ml 320 ml -900 ml Intake Oral 465 ml 300 ml IV Total 112 ml 6 ml 20 ml Output Urine Total 450 ml 200 ml 900 ml # Voids 1 2 # Bowel Movements 2 1 2 Result Diagram: 04/13/17 0555 04/13/17 0555 Objective Remarks GENERAL: patient sitting up in chair. Appears comfortable. SKIN: Warm and dry. HEAD: Normocephalic. EYES: No scleral icterus. No injection or drainage. NECK: Supple, trachea midline. No JVD. CARDIOVASCULAR: Regular rate and rhythm without murmurs, gallops, or rubs. RESPIRATORY: Breath sounds equal bilaterally. No accessory muscle use. GASTROINTESTINAL: Abdomen soft, non-tender, nondistended. MUSCULOSKELETAL: No cyanosis. +2 peripheral edema, however improved from yesterday. No erythema.. BACK: Nontender without obvious deformity. No CVA tenderness. A/P Assessment and Plan ==== 04/13/17 Discussed with hematology this morning. INR within therapeutic range, however trending down. Platelets also trending down. Hematology feels it would be best to wait and ensure stability prior to discharge. -Creatinine increase to 2.18 today. Patient may need dialysis tomorrow if nephrology feels this is necessary. We'll continue to monitor. Bilateral lower extremity edema improved with elevation. Continue to monitor. 76 yrs old female with history of severe aortic stenosis s/p AVR w/bovine valve , primary biliary cirrhosis, diabetes mellitus, presented to the ED on 03/11 secondary to fatigue/weakness, found to have bacteremia with infective endocarditis. 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 -ID consulted -Continue IV Rocephin until 04/25 -Repeat cultures negative to date -Cardiology ff -IV antibiotic infusion has been arranged with [facility] -PICC care -Follow up INR on 04/13. //[place]: Cr as high as 3.78, baseline 0.9 February2017 -Nephrology consulted, patient continues to receive hemodialysis -PermCath placed on 04/07 -continue Bumex and Aldactone, fluid restrictions and renal diet. -Continue to monitor renal function. Dialysis as per nephrology. 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 Monitor CBC patient with worsening thrombocytopenia. INR 6 today. Patient had transient bleeding over PICC line site controlled with pressure. Discussed with RN, hold Argatroban and repeat INR in 4 hours. If INR under 2, restart Argatroban and repeat PT/INR in the morning and to hold argatroban drip 4 hours before. -Continue to monitor INR. Management as per hematology. Appreciate assistance. -INR continues therapeutic off of IV anticoagulation. Continue warfarin. //Hyperlipidemia-continue statins //Biliary Cirrhosis, stage IV-continue Bumex and Lasix, continue Mckenna //DM2-continue long-acting Levemir and sliding scale insulin, A1c 6.5. Hyperglycemia secondary to noncompliance. Increase Levemir to 14 units daily. Diabetic education //Hypothyroidism-Continue supplementation //GERD/Hiatal Hernia-Continue PPI //Diarrhea-improving. C. difficile PCR negative. Imodium prn. //DVT Prophylaxis: SCDs, Coumadin Discharge Planning Discharge when cleared by hematology [facility] Leonardo Callahan MD April 13, 2017 23:01
[2017-04-14 00:34] VITALS: BP 110/60; PULSE 54; RESP 20; TEMP 98.1; O2SAT 97
[2017-04-14] MEDS: CHLORHEXIDINE GLUCONATE 2 % 1 PACK (2 CLOTHS) TOP SCH (04:00)
[2017-04-14 05:26] VITALS: BP 110/54; PULSE 87; RESP 20; TEMP 98; O2SAT 93
[2017-04-14] MEDS: SODIUM CHLORIDE 0.9% FLUSH 10 ML FLUSH IVF SCH ×3 (05:45→14:00)
[2017-04-14] MEDS: SODIUM CHLORIDE 0.9% FLUSH 10 ML FLUSH IV FLUSH PRN (05:45)
[2017-04-14] MEDS: LEVOTHYROXINE SODIUM 75 MCG TAB PO SCH (05:45)
[2017-04-14] MEDS: INSULIN ASPART SUPPLEMENTAL SCALE SQ SCH ×2 (05:49→11:00)
[2017-04-14 06:20] LABS: AUTOMATED NEUTROPHIL # 6.9 TH/MM3 (1.8-7.7); BASOPHIL # 0.1 TH/MM3 (0-0.2); BASOPHIL % 1.5 % (0.0-2.0); EOSINOPHIL # 0.1 TH/MM3 (0-0.4); EOSINOPHIL % 1.2 % (0.0-4.0); LYMPH % 11.3 % (9.0-44.0); MEAN CELL VOLUME 85.8 FL (80.0-100.0); MEAN CORPUSCULAR HEMOGLOBIN 29.4 PG (27.0-34.0); MEAN CORPUSCULAR HGB CONC 34.3 % (32.0-36.0); MONO % 5.9 % (0.0-8.0); NEUT % 80.1 % (16.0-70.0); PLATELET COUNT 82 TH/MM3 (150-450); RED BLOOD COUNT 3.03 MIL/MM3 (4.00-5.30); WHITE BLOOD COUNT 8.7 TH/MM3 (4.0-11.0)
[2017-04-14 06:24] LABS: HEMO FLAGS AUTO DIFF
[2017-04-14 06:33] LABS: ANION GAP 6 MEQ/L (5-15); AST (GOT) 33 U/L (15-37); BICARBONATE 29.7 MEQ/L (21.0-32.0); BLOOD UREA NITROGEN 34 MG/DL (7-18); CHLORIDE 98 MEQ/L (98-107); GLOMERULAR FILTRATION RATE 20 ML/MIN (>89); POTASSIUM 5.2 MEQ/L (3.5-5.1); SODIUM (NA) 134 MEQ/L (136-145)
[2017-04-14 06:36] LABS: ALKALINE PHOSPHATASE 164 U/L (45-117); ALT (GPT) 14 U/L (10-53); TOTAL BILIRUBIN ADULT 1.1 MG/DL (0.2-1.0)
[2017-04-14 08:00] VITALS: BP 110/65; PULSE 76; RESP 18; TEMP 98.1; O2SAT 96
--- NOTE | 2017-04-14 08:43 | PD.ONC.PN ---
Subjective Subjective Remarks Afebrile overnight. Patient resting comfortably in chair next to bed. No bleeding. + swelling in legs. Going for dialysis this morning. Objective Data Date Time Temp Pulse Resp B/P Pulse Ox O2 Delivery O2 Flow Rate FiO2 04/14/17 05:26 98.0 87 20 110/54 93 04/14/17 00:34 98.1 54 20 110/60 97 04/13/17 22:30 Room Air 04/13/17 22:00 59 04/13/17 21:03 97.7 62 20 111/55 97 04/13/17 17:17 97.8 62 18 124/64 98 04/13/17 16:23 Room Air 04/13/17 12:50 97.6 79 18 122/62 94 04/14/17 04/14/17 04/14/17 07:00 15:00 23:00 Intake Total 312 ml Balance 312 ml Result Diagram: 04/14/17 0545 04/14/17 0545 Laboratory Results Laboratory Tests Test 04/14/17 05:45 White Blood Count 8.7 TH/MM3 Red Blood Count 3.03 MIL/MM3 Hemoglobin 8.9 GM/DL Hematocrit 26.0 % Mean Corpuscular Volume 85.8 FL Mean Corpuscular Hemoglobin 29.4 PG Mean Corpuscular Hemoglobin 34.3 % Concent Red Cell Distribution Width 17.0 % Platelet Count 82 TH/MM3 Mean Platelet Volume 7.8 FL Neutrophils (%) (Auto) 80.1 % Lymphocytes (%) (Auto) 11.3 % Monocytes (%) (Auto) 5.9 % Eosinophils (%) (Auto) 1.2 % Basophils (%) (Auto) 1.5 % Neutrophils # (Auto) 6.9 TH/MM3 Lymphocytes # (Auto) 1.0 TH/MM3 Monocytes # (Auto) 0.5 TH/MM3 Eosinophils # (Auto) 0.1 TH/MM3 Basophils # (Auto) 0.1 TH/MM3 CBC Comment AUTO DIFF Sodium Level 134 MEQ/L Potassium Level 5.2 MEQ/L Chloride Level 98 MEQ/L Carbon Dioxide Level 29.7 MEQ/L Anion Gap 6 MEQ/L Blood Urea Nitrogen 34 MG/DL Creatinine 2.32 MG/DL Estimat Glomerular Filtration 20 ML/MIN Rate Random Glucose 80 MG/DL Calcium Level 8.5 MG/DL Total Bilirubin 1.1 MG/DL Aspartate Amino Transf 33 U/L (AST/SGOT) Alanine Aminotransferase 14 U/L (ALT/SGPT) Alkaline Phosphatase 164 U/L Total Protein 5.6 GM/DL Albumin 2.2 GM/DL Administered Medications Medications (Trade) Dose Ordered Sig/Tunde Route PRN Reason Start Time Stop Time Status Last Admin Dose Admin Atorvastatin Calcium (Lipitor) 10 mg HS PO 03/12/17 21:00 04/13/17 22:24 Levothyroxine Sodium (Synthroid) 75 mcg DAILY@06 PO 03/14/17 06:00 04/14/17 05:45 Sodium Chloride (NS Flush) DAILY IVF 03/13/17 09:00 04/12/17 09:34 Sodium Chloride (NS Flush) UNSCH PRN IVF SEE PROTOCOL 03/13/17 08:00 03/14/17 09:13 Sodium Chloride (NS Flush) 2 ml UNSCH PRN IV FLUSH FLUSH AFTER USING IV ACCESS 03/13/17 08:30 04/14/17 05:45 Sodium Chloride (NS Flush) 2 ml BID IV FLUSH 03/13/17 09:00 04/13/17 22:24 Acetaminophen (Tylenol) 650 mg Q6H PRN PO PAIN 1-2 AND/OR FEVER >101F 03/13/17 08:30 04/12/17 17:25 Acetaminophen/ Hydrocodone Bitart ([place] 5-325 Mg) 1 tab Q4H PRN PO PAIN SCALE 3 TO 5 03/13/17 08:30 04/13/17 22:28 Ondansetron HCl (Zofran Inj) 4 mg Q6H PRN IV NAUSEA OR VOMITING 03/13/17 08:30 04/13/17 17:47 Docusate Sodium (Colace) 100 mg BID PO 03/13/17 09:00 04/13/17 08:15 Miscellaneous Information 1 Q361D XX 03/13/17 08:30 03/14/17 09:14 Chlorhexidine Gluconate (Chlorhexidine 2% Cloth) Taper DAILY@04 TOP 03/14/17 04:00 03/10/18 03:59 04/02/17 04:00 Multivitamins 1 tab 1 tab DAILY PO 03/13/17 11:30 04/13/17 08:15 Ceftriaxone Sodium/Sodium Chloride (Rocephin Inj/NS Inj) 100 ml @ 200 mls/hr Q24H IV 03/14/17 13:00 04/13/17 12:06 Patient Own Medication PT OWN MED: Ursod... BID PO 03/15/17 13:00 04/13/17 22:23 Diltiazem HCl (Cardizem) 60 mg TID PO 03/19/17 18:00 04/13/17 17:05 Calcium Carbonate 1000 mg 1,000 mg TID PO 03/20/17 09:00 04/13/17 17:05 Sodium Chloride 1,000 ml @ 0 mls/hr Q0M PRN IV For Prime & Rinse Back 03/21/17 11:22 04/10/17 15:31 Sodium Chloride (NS 1000 ml Inj) 1,000 ml @ 200 mls/hr Q5H PRN IV WITH DIALYSIS 03/21/17 11:22 03/27/17 12:24 Gentamicin Sulfate (Gentamicin (Dialysis) Inj) 20 mg UNSCH PRN IV WITH DIALYSIS 03/21/17 11:30 04/10/17 15:31 Epoetin Derrell (Epogen Inj) 4,000 units UNSCH PRN IV WITH DIALYSIS 03/21/17 11:30 04/10/17 15:31 Pantoprazole Sodium (Protonix) 40 mg DAILY PO 03/24/17 11:00 04/13/17 08:15 Calcium Carbonate (Tums Chew) 500 mg Q8HR PRN CHEW HEARTBURN 03/24/17 11:00 03/24/17 11:01 Potassium Chloride (KCl) 20 meq Q12HR PO 03/31/17 21:00 04/13/17 22:24 Spironolactone (Aldactone) 25 mg DAILY PO 04/01/17 13:30 04/13/17 08:14 Lorazepam (Ativan) 0.5 mg Q6H PRN PO anxiety 04/02/17 00:00 04/03/17 18:53 Loperamide HCl (Imodium) 2 mg Q6H PRN PO diarrhea 04/06/17 13:00 04/12/17 20:58 Sodium Chloride (NS Flush) Q8HR IVF 04/09/17 14:00 04/14/17 05:45 Insulin Detemir (Levemir Inj) 14 units DAILYAC SQ 04/10/17 09:40 04/13/17 08:23 Warfarin Sodium (Coumadin) 1 mg DAILY@16 PO 04/10/17 16:00 Future Hold 04/13/17 16:53 Bumetanide (Bumetanide) 1 mg DAILY PO 04/12/17 09:00 04/13/17 08:15 Objective Remarks GENERAL: Pleasant female, walking in room with walker, then sitting up in chair next to bed SKIN: Warm and dry. bandage on left arm is c/d/i. HEAD: Normocephalic. EYES: no injection or drainage. NECK: Supple, trachea midline. CARDIOVASCULAR: +S1/S2 RESPIRATORY: Breath sounds equal bilaterally. No accessory muscle use. GASTROINTESTINAL: Abdomen soft, non-tender, nondistended. EXTREMITIES: No cyanosis. 2-3+ pitting edema NEURO: aox3, normal speech. moving all extremities. Assessment/Plan Problem List: (1) Thrombocytopenia Status: Chronic Plan: 04/14: platelets improved today. INR =1.9 today. will continue coumadin 3mg PO today. no need to restart Argatroban 04/13: INR=2.0. platelet count with slight dip today. will give Coumadin 3mg PO today 04/12: INR=4.4 will hold Argatroban for four hours and recheck INR. also waiting on CBC to check platelet count. 04/11: resume Argatroban and coumadin. monitor for bleeding. 04/10/17. Noted INR 6.0, ptt 72 seconds. Argatroban on hold this AM for bleeding, R arm bleed now stopped.. Need to decrease Coumadin dose, Continue Argatroban this afternoon, note platelet decreased during interruption anticoagulant therapy. 04/09/17. Thrombocytopenia noted. Argatroban held for pic line, uneventful placement, Argatroban restarted. Start Coumadin tonight, no other procedures pending. Discussed need to continue anticoagulation at least 3 months. Planning on home care to draw pt/inr or to come to hematology clinic. Pt also have clinical case manager who can monitor. 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 Jerome is a 76-year-old woman who presented with generalized weakness on 03/11/2017. She has a history of thrombocytopenia reported by the patient and her during her cataract surgery. Her platelet count on admission was 148,000. It continued to trend down. She is noted to have started heparin on 03/14 as well as March 17. She had gradual decrease of platelet count temporarily related to starting heparin protocol. Assessment 76 y/o female with thrombocytopenia. 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 continue coumadin 3mg PO daily 2. clear for discharge. 3. follow up in clinic--patient will need daily INR checks and CBC through home health once discharged Attending Statement The exam, history, and the medical decision-making described in the above note were completed with the assistance of the mid-level provider. I reviewed and agree with the findings presented. I attest that I had a [id number] encounter with the patient on the same day, and personally performed and documented my assessment and findings in the medical record. Discussed Coumadin, diet and medications that can affect INR. Discussed plan to have home care check pt/inr when she goes home first several weeks. Referral information given. Anticipate seeing her in clinic to continue monitoring pt/inr. Anticipate that Coumadin dose may change when she complete abx therapy for endocarditis. Questions answered. Romy Oropeza April 14, 2017 08:42 Mojgan Mcginnis MD April 14, 2017 12:54
[2017-04-14] MEDS: DOCUSATE SODIUM 100 MG CAP PO SCH (09:00)
[2017-04-14 09:02] LABS: INTERNATIONAL NORMALIZED RATIO 1.9 RATIO
[2017-04-14] MEDS: EPOETIN ALFA 10,000 UNITS/ML VIAL IV PRN (09:45)
[2017-04-14 10:00] LABS: BANDS 1 % (0-6); BASOPHILS 2 % (0-2); EOSINOPHILS 1 % (0-4); MYELOCYTES 1 % (0-0); NEUTROPHIL # MANUAL DIFF 7.5 TH/MM3 (1.8-7.7); PLATELET ESTIMATE SMEAR LOW (NORMAL); PLATELET MORPHOLOGY NORMAL (NORMAL); POLYS (SEG NEUTROPHILS) 84 % (16-70); SCAN/DIFF FINAL DIFF MANUAL; WBC DIFF SAMPLE 100
--- NOTE | 2017-04-14 10:59 | HHI.NPPN ---
Subjective History of Present Illness 76 Year old W Female with ARF, Biliary Cirrhosis, streptococcus Viridans sepsis Additional Remarks Patient is alert, not in distress, started eating better. Review of Systems General Constitutional: Fatigue Objective Data Data 04/13/17 04/14/17 19:00 07:00 Intake Total 414 ml Output Total 900 ml 150 ml Balance -900 ml 264 ml Intake Oral 400 ml IV Total 14 ml Output Urine Total 900 ml 150 ml # Voids 2 # Bowel Movements 2 Vital Signs Date Time Temp Pulse Resp B/P Pulse Ox O2 Delivery O2 Flow Rate FiO2 04/14/17 08:00 98.1 76 18 110/65 96 04/14/17 05:26 98.0 87 20 110/54 93 04/14/17 00:34 98.1 54 20 110/60 97 04/13/17 22:30 Room Air 04/13/17 22:00 59 04/13/17 21:03 97.7 62 20 111/55 97 04/13/17 17:17 97.8 62 18 124/64 98 04/13/17 16:23 Room Air 04/13/17 12:50 97.6 79 18 122/62 94 -: 04/14/17 0545 04/14/17 0545 Physical Exam General Appearance: No Acute Distress, Comfortable, Anxious Neck Neck Exam: Neck Supple Pulmonary Resp Exam: Breath Sounds Equal, No Distress, Rhonchi, Decreased Bases Cardiology CV Exam: Irregular Gastrointestinal/Abdomen GI Exam: Soft, Non-Tender, Bowel Sounds Present Extremeties Extremities Exam: Moderate Edema Neurologic Neuro Exam: Alert, Awake, Oriented Psychiatric Psych Exam: Appropriate Responses Assessment/Plan Problem List: (1) Acute renal failure Plan: This is ARF, edema better Non oliguric, on Bumex. Aldactone 25 mg daily cr 2.3 hemodialysis proceedings noted 2 L UF HIT pos. Urine out put is better and Creatinine slightly worse Possibly has some renal recovery. but due to edema and fluid accumulation with Liver disease likely need HD as out pt she can be discharged. A PICC line placed (2) Streptococcal bacteremia Plan: Infectious disease is following she is on broad-spectrum antibiotic ceftriaxone for strep Viridans (3) Atrial flutter with rapid ventricular response Plan: Off diltiazem (4) Biliary liver cirrhosis Plan: Follows with GI (5) Thrombocytopenia Plan: HIT positive Hematology fu on Warfarin Problem Qualifiers (1) Acute renal failure: Qualified Code: N17.9 - Acute renal failure, unspecified acute renal failure type Molly Peng MD April 14, 2017 10:59
[2017-04-14] MEDS ORDERED: LEVO75TA3 PO (11:10)
[2017-04-14] MEDS ORDERED: COUM3TAB PO (11:10)
[2017-04-14] MEDS ORDERED: PROT40TA PO (11:10)
[2017-04-14] MEDS ORDERED: LIPI10TA PO (11:10)
[2017-04-14] MEDS ORDERED: SPIR25 PO (11:10)
[2017-04-14] MEDS ORDERED: HYDR-3516 PO (11:10)
[2017-04-14] MEDS ORDERED: LEVEMIR SQ (11:10)
[2017-04-14] MEDS ORDERED: ONDA4TAB7 SL (11:10)
[2017-04-14] MEDS ORDERED: DILT60TA33 PO (11:10)
[2017-04-14] MEDS ORDERED: BUME1TAB PO (11:10)
[2017-04-14] MEDS ORDERED: CEFT2INJ IM (11:14)
[2017-04-14 12:00] VITALS: BP 110/65; PULSE 76; RESP 18; TEMP 98.1; O2SAT 96
[2017-04-14] MEDS: CALCIUM CARBONATE 1.25 GM (CA 500 MG) TAB PO SCH ×2 (12:39→13:00)
[2017-04-14] MEDS: PANTOPRAZOLE SOD 40 MG DELAYED RELEASE TAB PO SCH (12:40)
[2017-04-14] MEDS: MULTIVITAMIN TAB PO SCH (12:40)
[2017-04-14] MEDS: POTASSIUM CHLORIDE 20 MEQ CONTROLLED RELEASE TAB PO SCH (12:40)
[2017-04-14] MEDS: DILTIAZEM HCL 60 MG TAB PO SCH ×2 (12:40→13:00)
[2017-04-14] MEDS: BUMETANIDE 1 MG TAB PO SCH (12:41)
[2017-04-14] MEDS: SPIRONOLACTONE 25 MG TAB PO SCH (12:41)
[2017-04-14] MEDS: URSODIOL PO SCH (12:41)
[2017-04-14] MEDS: cefTRIAXone INJ 2,000 MG in SODIUM CHLORIDE 0.9% INJ 100 ML IV SCH (12:55)
[2017-04-14] MEDS: SODIUM CHLORIDE 0.9% FLUSH 10 ML FLUSH IV FLUSH SCH (13:03)
[2017-04-14] MEDS: INSULIN DETEMIR 100 UNITS/ML VIAL SQ SCH (13:06)
[2017-04-14] MEDS ORDERED: WARFARIN SOD 3 MG TAB PO SCH (16:00)
[2017-04-15] MEDS ORDERED: COUM1TAB PO (12:16)
--- NOTE | 2017-04-17 08:24 | HHI.DS ---
Discharge Summary Admission Date Mar 12, 2017 at 00:45 Discharge Date: April 14, 2017 Admitting Diagnosis ATRIAL FLUTTER WITH RVR followed by fevers, sweats, headache. 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 Jerome is a pleasant 76 year old female with a history of severe aortic stenosis s/p AVR (bovine valve), primary biliary cirrhosis, DM who presented to the ED on 03/11/2017 due to generalized weakness. She has been very tired and sleeping most of the hours. She reports fever off and on and yesterday she had chills. She reports some chronic cough. Patient reports no recent abx use and reports 10 day duration of diarrhea. She took imodium at home and her diarrhea transiently improved. She has not had any diarrhea in the hospital yet. Patient denies any headache, or changes in vision. Denies any weight loss. No dysuria or hematuria. CBC/BMP: 04/14/17 0545 04/14/17 0545 Significant Findings Laboratory Tests Test 04/14/17 08:30 Prothrombin Time 22.0 SEC (9.8-11.6) Imaging Last Impressions PICC Line Insertion 04/09/17 0000 Signed Impressions: Service Date/Time: Sunday, April 09, 2017 10:58 - CONCLUSION: 1. Uncomplicated central venous Power PICC line placement. 2. The PICC line can be used immediately. David Collier MD Catheter Placement X-Ray 04/07/17 0700 Signed Impressions: Service Date/Time: Friday, April 07, 2017 14:04 - CONCLUSION: Uncomplicated exchange of Vas-Cath for hemodialysis permacath with fluoroscopic guidance as above. The catheter can be used immediately. Reynaldo Kasper MD Upper Extremity Ultrasound 03/26/17 Signed Impressions: Service Date/Time: Sunday, March 26, 2017 21:49 - CONCLUSION: Normal examination. Denton Parker Jr., MD Lower Extremity Ultrasound 03/26/17 Signed Impressions: Service Date/Time: Sunday, March 26, 2017 21:28 - CONCLUSION: 1. No DVT. 2. Subcutaneous edema involving both calves. Denton Parker Jr., MD Chest X-Ray 03/21/17 Signed Impressions: Service Date/Time: Tuesday, March 21, 2017 09:16 - CONCLUSION: Bibasilar opacities characteristic of pleural effusions with associated volume loss and/or consolidation. The perihilar interstitial opacities are suggestive of pulmonary edema. Reynaldo Higgins MD Renal Ultrasound 03/18/17 Signed Impressions: Service Date/Time: Saturday, March 18, 2017 17:35 - CONCLUSION: 1. Echogenic kidneys bilaterally compatible with medical renal disease. 2. Small volume ascites Dimitrios Lopez MD Neck CTA 03/12/17 Signed Impressions: Service Date/Time: Sunday, March 12, 2017 20:22 - CONCLUSION: Slight atherosclerosis of both carotid bifurcations without narrowing. Dominant left vertebral artery. Reynaldo Lazar MD Head CTA 03/12/17 Signed Impressions: Service Date/Time: Sunday, March 12, 2017 20:22 - CONCLUSION: Normal intracranial arteries. Reynaldo Lazar MD Head CT 03/12/17 Signed Impressions: Service Date/Time: Sunday, March 12, 2017 19:02 - CONCLUSION: Negative noncontrast head CT. Reynaldo Lazar MD PE at Discharge GENERAL: patient sitting up in chair. Appears comfortable. SKIN: Warm and dry. HEAD: Normocephalic. EYES: No scleral icterus. No injection or drainage. NECK: Supple, trachea midline. No JVD. CARDIOVASCULAR: Regular rate and rhythm without murmurs, gallops, or rubs. RESPIRATORY: Breath sounds equal bilaterally. No accessory muscle use. GASTROINTESTINAL: Abdomen soft, non-tender, nondistended. MUSCULOSKELETAL: No cyanosis. +2 peripheral edema, however improved again from yesterday No erythema.. BACK: Nontender without obvious deformity. No CVA tenderness. Pt update on day of discharge patient says she is ready to go home. Denies any chest pain or shortness of breath. Hospital Course Blood cultures from admission grew strep. Infectious disease was consult sent, and recommend continued treatment with ceftriaxone to complete treatment course. Patient was found to have acute kidney injury on admission, for which Perma-Caths with placed on 04/07, managed by nephrology on hemodialysis. 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 Hematology was consult that, patient was treated with argatroban, as well as warfarin. For problem-based summary from most recent progress note, please see below. ==== 04/13/17 Discussed with hematology this morning. INR within therapeutic range, however trending down. Platelets also trending down. Hematology feels it would be best to wait and ensure stability prior to discharge. -Creatinine increase to 2.18 today. Patient may need dialysis tomorrow if nephrology feels this is necessary. We'll continue to monitor. Bilateral lower extremity edema improved with elevation. Continue to monitor. 76 yrs old female with history of severe aortic stenosis s/p AVR w/bovine valve , primary biliary cirrhosis, diabetes mellitus, presented to the ED on 03/11 secondary to fatigue/weakness, found to have bacteremia with infective endocarditis. 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 -ID consulted -Continue IV Rocephin until 04/25 -Repeat cultures negative to date -Cardiology ff -IV antibiotic infusion has been arranged with C -PICC care -Follow up INR on 04/13. //NATALIA: Cr as high as 3.78, baseline 0.9 February2017 -Nephrology consulted, patient continues to receive hemodialysis -PermCath placed on 04/07 -continue Bumex and Aldactone, fluid restrictions and renal diet. -Continue to monitor renal function. Dialysis as per nephrology. 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 Monitor CBC patient with worsening thrombocytopenia. INR 6 today. Patient had transient bleeding over PICC line site controlled with pressure. Discussed with RN, hold Argatroban and repeat INR in 4 hours. If INR under 2, restart Argatroban and repeat PT/INR in the morning and to hold argatroban drip 4 hours before. -Continue to monitor INR. Management as per hematology. Appreciate assistance. -INR continues therapeutic off of IV anticoagulation. Continue warfarin. //Hyperlipidemia-continue statins //Biliary Cirrhosis, stage IV-continue Bumex and Lasix, continue Mckenna //DM2-continue long-acting Levemir and sliding scale insulin, A1c 6.5. Hyperglycemia secondary to noncompliance. Increase Levemir to 14 units daily. Diabetic education //Hypothyroidism-Continue supplementation //GERD/Hiatal Hernia-Continue PPI //Diarrhea-improving. C. difficile PCR negative. Imodium prn. //DVT Prophylaxis: SCDs, Coumadin Discharge Planning Discharge when cleared by hematology -home health for antibiotics infusion Pt Condition on Discharge: Good Discharge Disposition: Disch w/ Home Health Serv Discharge Time: > 30 minutes Discharge Instructions DIET: Follow Instructions for: Diabetic Diet Activities you can perform: Regular-No Restrictions Follow up Referrals: Appointment for Follow Up - 1 Week with hematology Cardiology - 1 Week Infectious Disease - 1 Week Nephrology - 1 Week PCP Follow-up - 1 Week SNF/LONG TERM/ with [facility] New Orders: BASIC METABOLIC PROF - 1 Week PT/INR New Medications: Ceftriaxone Inj (Ceftriaxone Inj) 2 Gm Inj 2 GM IM Q24H Infection Days 11 Ref 0 VIAL Levothyroxine (Levothyroxine) 75 Mcg Tab 75 MCG PO DAILY Thyroid #30 Ref 0 TAB Ondansetron Odt (Ondansetron Odt) 4 Mg Tab 4 MG SL Q6HR PRN Nausea/Vomiting Days 30 Ref 0 TAB Warfarin (Coumadin) 1 Mg Tab 1 MG PO DIRECTED Prevent Blood Clot #30 Ref 0 TAB Atorvastatin (Lipitor) 10 Mg Tab 10 MG PO HS heart Days 30 TAB Bumetanide (Bumetanide) 1 Mg Tab 1 MG PO DAILY water pill Days 30 TAB Diltiazem (Cardizem) 60 Mg Tab 60 MG PO TID heart rate Days 30 TAB Hydrocodone-Acetaminophen (Hydrocodone-Acetaminophen) 5-325 mg Tab 1 TAB PO Q4H PRN PAIN SCALE 1 TO 10 #20 TAB Insulin Detemir Inj (Levemir Inj) 1,000 unit/ 10 ML Vial 14 UNITS SQ DAILYAC Blood Sugar Management Days 30 INJECTION Pantoprazole (Protonix) 40 Mg Tab 40 MG PO DAILY Reflux Days 30 TAB Spironolactone (Aldactone) 25 Mg Tab 25 MG PO DAILY blood pressure Days 30 TAB Warfarin (Coumadin) 3 Mg Tab 3 MG PO DAILY@16 heart Days 30 TAB Discontinued Medications: Furosemide (Lasix) 20 Mg Tab 20 MG PO 2XWEEK #60 Ref 0 TAB Levothyroxine (Synthroid) 100 Mcg Tab 100 MCG PO DAILY Thyroid #30 Ref 0 TAB Losartan (Losartan) 100 Mg Tab 100 MG PO DAILY Blood Pressure Management #30 Ref 0 TAB Leonardo Callahan MD Apr 17, 2017 08:24
== END 2017-04-14 15:19 | disposition home health service (06) | DRG 314 ==
LOC: PHED 22:46 → PHEDA 03-12 00:45 → PHICU 03-12 03:25 → HIMN 03-12 21:00 → HIME 03-13 18:33 → HCIS 03-19 10:06 → N04B 03-24 15:18
PROVIDERS: ADMIT Internal Medicine; ATTEND Internal Medicine
PROC: 009U3ZX Drainage of Spinal Canal, Percutaneous Approach, Diagnostic (ICD-10-PCS; 2017-03-13)
PROC: 05HM33Z Insertion of Infusion Device into Right Internal Jugular Vein, Percutaneous Approach (ICD-10-PCS; 2017-03-13)
PROC: B246ZZ4 Ultrasonography of Right and Left Heart, Transesophageal (ICD-10-PCS; 2017-03-17)
PROC: 0DJ08ZZ Inspection of Upper Intestinal Tract, Via Natural or Artificial Opening Endoscopic (ICD-10-PCS; 2017-03-17)
PROC: 05HM33Z Insertion of Infusion Device into Right Internal Jugular Vein, Percutaneous Approach (ICD-10-PCS; principal; 2017-03-21)
PROC: 5A1D60Z (ICD-10-PCS; 2017-03-21)
PROC: 05HM33Z Insertion of Infusion Device into Right Internal Jugular Vein, Percutaneous Approach (ICD-10-PCS; 2017-04-07)
PROC: 02HV33Z Insertion of Infusion Device into Superior Vena Cava, Percutaneous Approach (ICD-10-PCS; 2017-04-09)
DX: T82.6XXA Infection and inflammatory reaction due to cardiac valve prosthesis, initial encounter (principal); A40.8 Other streptococcal sepsis; G93.40 Encephalopathy, unspecified; N17.9 Acute kidney failure, unspecified; I11.0 Hypertensive heart disease with heart failure; D68.0 Von Willebrand disease; E11.65 Type 2 diabetes mellitus with hyperglycemia; I50.9 Heart failure, unspecified; I48.92 Unspecified atrial flutter; E87.1 Hypo-osmolality and hyponatremia; I33.0 Acute and subacute infective endocarditis; I48.0 Paroxysmal atrial fibrillation; E86.0 Dehydration; K74.3 Primary biliary cirrhosis; E03.9 Hypothyroidism, unspecified; M19.90 Unspecified osteoarthritis, unspecified site; E78.00 Pure hypercholesterolemia, unspecified; K21.9 Gastro-esophageal reflux disease without esophagitis; K44.9 Diaphragmatic hernia without obstruction or gangrene; R00.1 Bradycardia, unspecified; E78.5 Hyperlipidemia, unspecified; Y71.2 Prosthetic and other implants, materials and accessory cardiovascular devices associated with adverse incidents; Y92.009 Unspecified place in unspecified non-institutional (private) residence as the place of occurrence of the external cause; R11.10 Vomiting, unspecified; I65.23 Occlusion and stenosis of bilateral carotid arteries; K74.60 Unspecified cirrhosis of liver; R19.7 Diarrhea, unspecified; D64.9 Anemia, unspecified; D75.82 Heparin induced thrombocytopenia (HIT); R74.8 Abnormal levels of other serum enzymes; I08.1 Rheumatic disorders of both mitral and tricuspid valves; E86.1 Hypovolemia; E87.6 Hypokalemia; E83.51 Hypocalcemia; F41.9 Anxiety disorder, unspecified; Z91.19 Patient's noncompliance with other medical treatment and regimen; Q79.9 Congenital malformation of musculoskeletal system, unspecified; Z88.0 Allergy status to penicillin; Z91.013 Allergy to seafood; Z91.041 Radiographic dye allergy status; Z91.09 Other allergy status, other than to drugs and biological substances; Z79.4 Long term (current) use of insulin; Z88.2 Allergy status to sulfonamides; Z91.11 Patient's noncompliance with dietary regimen
CPT/HCPCS: 36556; 36558; 36569; 62270; 70450; 70496; 70498; 71010; 76775; 76937; 77001; 80048; 80053; 80074; 80076; 80162; 80202; 81001; 82105; 82140; 82247; 82248; 82550; 82570; 82945; 82948; 83036; 83605; 83615; 83735; 83880; 84100; 84145; 84155; 84157; 84300; 84439; 84443; 84481; 84484; 85007; 85025; 85027; 85384; 85610; 85730; 86022; 86140; 86850; 86900; 86901; 87040; 87070; 87086; 87186; 87205; 87493; 87641; 89051; 90935; 93005; 93306; 93312; 93320; 93325; 93970; 93971; 94150; 94664; 96361; 96374; 96375; 99152; 99153; C1750; C1751; C1752; C1769; C9113; J0461; J0696; J0883; J1160; J1200; J1265; J1580; J1644; J1650; J1815; J2060; J2150; J2250; J2370; J2405; J2930; J3010; J3370; J3475; J7030; J7040; J7050; P9047; Q4081; Q9967

== ENCOUNTER 2017-04-18 20:30 | Emergency (ER) | payer MEDICARE, OTHER ==
[~2017-04-18] VITALS: Ht 167.6 cm; Wt 70.0 kg
[~2017-04-18 20:30] MED LIST changes: -ALBUAER3 INH; -BENA25TA3 PO; +BUME1TAB PO; +CEFT2INJ IM; +COUM1TAB PO; +COUM3TAB PO; +DILT60TA33 PO; -ESTR.3 PO; -FURO1TAB62 PO; +HYDR-3516 PO; -INSU1INJ14 SQ; -L-ME1CAP2 PO; +LEVEMIR SQ; -LEVO.1 PO; +LEVO75TA3 PO; -LOSA100T PO; -MULT-65 PO; -NOVOLOGP2 SQ; -OMEP20TA PO; +ONDA4TAB7 SL; +PROT40TA PO; +SPIR25 PO; -SPIR25TA PO; -URSO250T2 PO
[2017-04-18 20:33] VITALS: BP 124/55; PULSE 94; RESP 16; TEMP 98.2; O2SAT 97
[2017-04-18] MEDS ORDERED: SODIUM CHLORIDE 0.9% FLUSH 10 ML FLUSH IV FLUSH PRN (22:15)
--- NOTE | 2017-04-18 22:15 | PD ---
HPI Chief Complaint: Abnormal Results Time Seen by Provider: 22:15 Travel History International Travel<30 days: No Contact w/Intl Traveler<30days: No Traveled to known affect area: No History of Present Illness HPI 76-year-old female with a history of severe aortic stenosis status post aortic valve replacement with a Bovine valve, diabetes, recent prosthetic valve endocarditis currently receiving IV antibiotics presents to the emergency department for elevated INR. The patient was discharged from our facility 5 days ago after an extended hospital stay for atrial flutter with RVR, prosthetic valve endocarditis and bacteremia. She was discharged with a PICC line to receive IV antibiotics daily and started on Coumadin. States that she has been having her INR checked every day for the last 5 days and has been called and told what dose to take every day based on her INR. States that yesterday her INR was 5 and today she was called and told her INR was 9.6. She did not take any Coumadin today and was told to come to the emergency department. The patient denies any bleeding, bruising, chest pain, shortness of breath, abdominal pain, nausea, vomiting, diarrhea, bloody stool, black stool. No other complaints. PFSH Past Medical History Arthritis: Yes Asthma: No Autoimmune Disease: Yes (arthritis) Anxiety: No Depression: No Heart Rhythm Problems: No Cancer: No Cardiovascular Problems: Yes High Cholesterol: Yes Chest Pain: No Congestive Heart Failure: Yes Cirrhosis: Yes (STAGE 4 CHRONIC BILLARY) COPD: No Cerebrovascular Accident: No Diabetes: Yes Diminished Hearing: No Endocrine: Yes Gastrointestinal Disorders: Yes (GERD) GERD: Yes Genitourinary: No Headaches: No Hepatitis: No Hiatal Hernia: Yes Hypertension: Yes Immune Disorder: No Implanted Vascular Access Dvce: No Kidney Stones: No Musculoskeletal: Yes (BACK PAIN, BROKEN PELVIS 2015(NO SURGERY)) Neurologic: No Psychiatric: No Reproductive: No Respiratory: Yes Immunizations Current: Yes Migraines: No Renal Failure: No Seizures: No Thyroid Disease: Yes Ulcer: No Menopausal: Yes Past Surgical History Abdominal Surgery: Yes (APPY 1950) AICD: No Appendectomy: Yes (1950) Body Medical Devices: ATRIAL VALVE Cardiac Surgery: Yes (VALVE REPLACEMENT 2012) Cholecystectomy: Yes (2005) Ear Surgery: No Endocrine Surgery: No Eye Surgery: Yes (cataract 2016) Genitourinary Surgery: No Gynecologic Surgery: Yes (HYSTERECTOMY 1988) Hysterectomy: Yes Joint Replacement: No Neurologic Surgery: No Oral Surgery: No Pacemaker: No Thoracic Surgery: No Valve Replacement: Yes (ATRIAL VALVE REPLACEMENT MODEL 3000FTX) Other Surgery: Yes (ATRIAL STENOSIS REPAIR BOVINE VALVE, MENISCUS REPAIR) Social History Alcohol Use: Yes (social) Tobacco Use: No Substance Use: No Allergies-Medications (Allergen,Severity, Reaction): Coded Allergies: Heparin (Verified Allergy, Severe, thrombocytopenia, 04/18/17) HIT, CHAPO+ Macrobid (Unverified Allergy, Severe, itching, 04/18/17) Adhesives (Verified Allergy, Intermediate, REDNESS, ITCHING, 04/18/17) Ampicillin (Verified Allergy, Mild, 04/18/17) Contrast Media (Verified Allergy, Mild, 04/18/17) Iodine (Verified Allergy, Mild, 04/18/17) Levaquin (Verified Allergy, Mild, 04/18/17) Sulfa (Verified Allergy, Mild, 04/18/17) *MDRO Multi-Drug Resistant Organism (Verified Adverse Reaction, Unknown, ) CLEARED PER INFECTION CONTROL PROTOCOL 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 2011 MRSA PCR negative 06/26/2015, 06/29/15 & 03/12/17 Reported Meds & Prescriptions Reported Meds & Active Scripts Active Coumadin (Warfarin) 1 Mg Tab 1 Mg PO DIRECTED Ceftriaxone Inj (Ceftriaxone Sodium) 2 Gm Inj 2 Gm IM Q24H 11 Days Ondansetron Odt 4 Mg Tab 4 Mg SL Q6HR PRN 30 Days Coumadin (Warfarin) 3 Mg Tab 3 Mg PO DAILY@16 30 Days Aldactone (Spironolactone) 25 Mg Tab 25 Mg PO DAILY 30 Days Protonix (Pantoprazole Sodium) 40 Mg Tab 40 Mg PO DAILY 30 Days Levemir Inj (Insulin Detemir) 1,000 unit/ 10 ML Vial 14 Units SQ DAILYAC 30 Days Hydrocodone-Acetaminophen 5-325 mg Tab 1 Tab PO Q4H PRN Cardizem (Diltiazem HCl) 60 Mg Tab 60 Mg PO TID 30 Days Bumetanide 1 Mg Tab 1 Mg PO DAILY 30 Days Lipitor (Atorvastatin Calcium) 10 Mg Tab 10 Mg PO HS 30 Days Levothyroxine (Levothyroxine Sodium) 75 Mcg Tab 75 Mcg PO DAILY Review of Systems Except as stated in HPI: all other systems reviewed are Neg Physical Exam Narrative GENERAL: Well-nourished and well-developed pleasant female patient in no acute distress. SKIN: Warm and dry. HEAD: Normocephalic and atraumatic. EYES: No injection, drainage, or hyphema noted. PERRLA. EOMI. ENT: No nasal drainage noted. Oropharynx is clear. NECK: Supple and the trachea is midline. CARDIOVASCULAR: Regular rate and rhythm. RESPIRATORY: Breath sounds are equal bilaterally with no accessory muscle use, wheezing, rhonchi, or crackles. GASTROINTESTINAL: Abdomen is soft, non-tender, and nondistended. MUSCULOSKELETAL: No obvious deformities, swelling, cyanosis, or ecchymosis is present throughout the upper and lower extremities. Patient has full range of motion without any signs of neurovascular compromise. NEUROLOGICAL: Awake, alert, and oriented. Normal speech and gait. Cranial nerves are grossly intact. Data Data Last Documented VS Vital Signs Date Time Temp Pulse Resp B/P Pulse Ox O2 Delivery O2 Flow Rate FiO2 04/18/17 22:39 97 Room Air 04/18/17 20:33 98.2 94 16 124/55 Orders Complete Blood Count With Diff (04/18/17 22:14) Comprehensive Metabolic Panel (04/18/17 22:14) Prothrombin Time / Inr (Pt) (04/18/17 22:14) Act Partial Throm Time (Ptt) (04/18/17 22:14) Iv Access Insert/Monitor (04/18/17 22:14) Ecg Monitoring (04/18/17 22:14) Oximetry (04/18/17 22:14) Sodium Chloride 0.9% Flush (Ns Flush) (04/18/17 22:15) Labs Laboratory Tests Test 04/18/17 22:15 White Blood Count 8.0 TH/MM3 Red Blood Count 3.28 MIL/MM3 Hemoglobin 9.5 GM/DL Hematocrit 28.1 % Mean Corpuscular Volume 85.5 FL Mean Corpuscular Hemoglobin 29.0 PG Mean Corpuscular Hemoglobin 33.9 % Concent Red Cell Distribution Width 16.6 % Platelet Count 98 TH/MM3 Mean Platelet Volume 7.9 FL Neutrophils (%) (Auto) 81.2 % Lymphocytes (%) (Auto) 9.3 % Monocytes (%) (Auto) 6.1 % Eosinophils (%) (Auto) 1.6 % Basophils (%) (Auto) 1.8 % Neutrophils # (Auto) 6.5 TH/MM3 Lymphocytes # (Auto) 0.7 TH/MM3 Monocytes # (Auto) 0.5 TH/MM3 Eosinophils # (Auto) 0.1 TH/MM3 Basophils # (Auto) 0.1 TH/MM3 CBC Comment AUTO DIFF MDM Medical Decision Making Medical Screen Exam Complete: Yes Emergency Medical Condition: Yes Differential Diagnosis Elevated INR versus lab error versus a history of mechanical valve Narrative Course 76-year-old female is brought to the emergency department for evaluation of INR 9.6. Patient is afebrile, vital signs are stable. She was just started on Coumadin 5 days ago after being discharged from our hospital. She is not having any bleeding at this time. Labs have been drawn and sent. Patient signed out to Dr. Ambrocio who will assume care of the patient and disposition. Bonny Kathleen Apr 18, 2017 22:15
[2017-04-18 22:29] LABS: AUTOMATED NEUTROPHIL # 6.5 TH/MM3 (1.8-7.7); BASOPHIL # 0.1 TH/MM3 (0-0.2); BASOPHIL % 1.8 % (0.0-2.0); EOSINOPHIL # 0.1 TH/MM3 (0-0.4); EOSINOPHIL % 1.6 % (0.0-4.0); HEMATOCRIT 28.1 % (35.0-46.0); LYMPH % 9.3 % (9.0-44.0); LYMPHOCYTE # 0.7 TH/MM3 (1.0-4.8); MEAN CELL VOLUME 85.5 FL (80.0-100.0); MEAN CORPUSCULAR HGB CONC 33.9 % (32.0-36.0); MONO % 6.1 % (0.0-8.0); NEUT % 81.2 % (16.0-70.0); PLATELET COUNT 98 TH/MM3 (150-450); RED BLOOD COUNT 3.28 MIL/MM3 (4.00-5.30); RED CELL DISTRIBUTION WIDTH 16.6 % (11.6-17.2)
[2017-04-18 22:33] LABS: HEMO FLAGS AUTO DIFF
[2017-04-18 22:36] LABS: APTT (PATIENT) 49.7 SEC (24.3-30.1); PROTHROMBIN TIME - PATIENT 110.2 SEC (9.8-11.6)
[2017-04-18 22:39] VITALS: O2SAT 97
[2017-04-18] MEDS ORDERED: INSU1INJ14 SQ (22:52)
[2017-04-18] MEDS ORDERED: NOVOLOGP2 SQ (22:52)
[2017-04-18 23:09] LABS: SCAN/DIFF AUTO DIFF CONFIRMED
[2017-04-18 23:12] LABS: ANION GAP 7 MEQ/L (5-15); AST (GOT) 31 U/L (15-37); BICARBONATE 27.8 MEQ/L (21.0-32.0); BLOOD UREA NITROGEN 16 MG/DL (7-18); CHLORIDE 100 MEQ/L (98-107); GLOMERULAR FILTRATION RATE 25 ML/MIN (>89); POTASSIUM 3.7 MEQ/L (3.5-5.1); SODIUM (NA) 135 MEQ/L (136-145)
[2017-04-18 23:13] LABS: ALT (GPT) 18 U/L (10-53)
[2017-04-18 23:15] LABS: ALKALINE PHOSPHATASE 178 U/L (45-117)
[2017-04-18 23:36] LABS: INTERNATIONAL NORMALIZED RATIO 9.1 RATIO
[2017-04-18] MEDS ORDERED: PHYTONADIONE 10 MG/ML VIAL SQ ONE (23:45)
--- NOTE | 2017-04-19 00:28 | PD ---
Physical Exam Narrative Patient was seen and examined with my assistant grocery. Data Data Last Documented VS Vital Signs Date Time Temp Pulse Resp B/P Pulse Ox O2 Delivery O2 Flow Rate FiO2 04/18/17 22:39 97 Room Air 04/18/17 20:33 98.2 94 16 124/55 Orders Complete Blood Count With Diff (04/18/17 22:14) Comprehensive Metabolic Panel (04/18/17 22:14) Prothrombin Time / Inr (Pt) (04/18/17 22:14) Act Partial Throm Time (Ptt) (04/18/17 22:14) Iv Access Insert/Monitor (04/18/17 22:14) Ecg Monitoring (04/18/17 22:14) Oximetry (04/18/17 22:14) Sodium Chloride 0.9% Flush (Ns Flush) (04/18/17 22:15) Phytonadione Inj (Vitamin K Inj) (04/18/17 23:45) Labs Laboratory Tests Test 04/18/17 22:15 White Blood Count 8.0 TH/MM3 Red Blood Count 3.28 MIL/MM3 Hemoglobin 9.5 GM/DL Hematocrit 28.1 % Mean Corpuscular Volume 85.5 FL Mean Corpuscular Hemoglobin 29.0 PG Mean Corpuscular Hemoglobin 33.9 % Concent Red Cell Distribution Width 16.6 % Platelet Count 98 TH/MM3 Mean Platelet Volume 7.9 FL Neutrophils (%) (Auto) 81.2 % Lymphocytes (%) (Auto) 9.3 % Monocytes (%) (Auto) 6.1 % Eosinophils (%) (Auto) 1.6 % Basophils (%) (Auto) 1.8 % Neutrophils # (Auto) 6.5 TH/MM3 Lymphocytes # (Auto) 0.7 TH/MM3 Monocytes # (Auto) 0.5 TH/MM3 Eosinophils # (Auto) 0.1 TH/MM3 Basophils # (Auto) 0.1 TH/MM3 CBC Comment AUTO DIFF Differential Comment AUTO DIFF CONFIRMED Prothrombin Time 110.2 SEC Prothromb Time International 9.1 RATIO Ratio Activated Partial 49.7 SEC Thromboplast Time Sodium Level 135 MEQ/L Potassium Level 3.7 MEQ/L Chloride Level 100 MEQ/L Carbon Dioxide Level 27.8 MEQ/L Anion Gap 7 MEQ/L Blood Urea Nitrogen 16 MG/DL Creatinine 1.94 MG/DL Estimat Glomerular Filtration 25 ML/MIN Rate Random Glucose 158 MG/DL Calcium Level 7.7 MG/DL Total Bilirubin 1.0 MG/DL Aspartate Amino Transf 31 U/L (AST/SGOT) Alanine Aminotransferase 18 U/L (ALT/SGPT) Alkaline Phosphatase 178 U/L Total Protein 5.7 GM/DL Albumin 2.4 GM/DL [facility] Supervised Visit with MINGO: Yes Interpretation(s) 1226 AM. CBC with hemoglobin 9.5 hematocrit 20.1. Platelet 98. Creatinine 1.94. GFR 25. Narrative Course Vitamin K 5 mg subcutaneous given. Diagnosis Primary Impression: Coumadin toxicity Qualified Code: T45.511A - Coumadin toxicity, accidental or unintentional, initial encounter Patient Instructions: General Instructions Additional Instruction: Stop Coumadin. Return in a.m. for recheck INR. Return immediately if any bleeding problem. Med/Other Pt SpecificInfo: Med Stopped Disposition: 01 DISCHARGE HOME Condition: Stable Shivam Ambrocio MD Apr 19, 2017 00:28
== END 2017-04-19 00:50 | disposition home or self-care (01) ==
LOC: NEPE 20:30
DX: R79.1 Abnormal coagulation profile (principal); T45.515A Adverse effect of anticoagulants, initial encounter; I50.9 Heart failure, unspecified; K74.60 Unspecified cirrhosis of liver; I10 Essential (primary) hypertension; Z95.2 Presence of prosthetic heart valve; Z79.01 Long term (current) use of anticoagulants
CPT/HCPCS: 80053; 85025; 85610; 85730; 96372; 99284; J3430

== ENCOUNTER 2017-04-19 15:15 | Emergency (ER) | payer MEDICARE, OTHER ==
[~2017-04-19] VITALS: Ht 165.1 cm; Wt 80.0 kg
[~2017-04-19 15:15] MED LIST changes: +INSU1INJ14 SQ; -LEVEMIR SQ; +NOVOLOGP2 SQ
[2017-04-19 15:17] VITALS: BP 97/50; PULSE 80; RESP 22; TEMP 98; O2SAT 98
--- NOTE | 2017-04-19 15:27 | PD ---
Physical Exam Date Seen by Provider: Apr 19, 2017 Time Seen by Provider: 15:26 Data Data Last Documented VS Vital Signs Date Time Temp Pulse Resp B/P Pulse Ox O2 Delivery O2 Flow Rate FiO2 04/19/17 15:17 98.0 80 22 97/50 98 MDM Supervised Visit with MINGO: No Narrative Course 75 YO F with complaint of INR of 9 by labs drawn yesterday. Vitals reviewed. Awaiting bed placement. Drea Coats Apr 19, 2017 15:27
--- NOTE | 2017-04-19 16:00 | PD ---
HPI Chief Complaint: Abnormal Results Time Seen by Provider: 15:54 Travel History International Travel<30 days: No Contact w/Intl Traveler<30days: No Traveled to known affect area: No History of Present Illness HPI 76-year-old female with a history of severe aortic stenosis status post aortic valve replacement with a Bovine valve, diabetes, recent prosthetic valve endocarditis currently receiving IV antibiotics presents to the emergency department for elevated INR. She is also now receiving dialysis Friday after recent hospitalization with renal failure. The patient was discharged from our facility 5 days ago after an extended hospital stay for atrial flutter with RVR, prosthetic valve endocarditis and bacteremia. She was discharged with a PICC line to receive IV antibiotics daily and started on Coumadin. She was seen in our emergency department last night and noted to have an INR of 9.1, she was given vitamin K 5 mg subcutaneous and instructed to return to the emergency department today for repeat INR. The patient has not taken any Coumadin today nor yesterday. She denies any bleeding, bruising, black stool, bloody stool, chest pain, shortness of breath. She does state that she has an erythematous rash noted to her mons pubis and a few patches to her right upper thigh. Denies pruritus, fever, chills, swelling. No rash noted at the injection site of the vitamin K yesterday. No other complaints. PFSH Past Medical History Hx Anticoagulant Therapy: Yes (COUMADIN) Arthritis: Yes Asthma: No Autoimmune Disease: Yes (arthritis) Anxiety: No Depression: No Heart Rhythm Problems: No Cancer: No Cardiovascular Problems: Yes (A-FIB) High Cholesterol: Yes Chest Pain: No Congestive Heart Failure: Yes Cirrhosis: Yes (STAGE 4 CHRONIC BILLARY) COPD: No Cerebrovascular Accident: No Diabetes: Yes Diminished Hearing: No Endocrine: Yes Gastrointestinal Disorders: Yes (GERD) GERD: Yes Genitourinary: No Headaches: No Hepatitis: No Hiatal Hernia: Yes Hypertension: Yes Immune Disorder: No Implanted Vascular Access Dvce: No Kidney Stones: No Musculoskeletal: Yes (BACK PAIN, BROKEN PELVIS 2015(NO SURGERY)) Neurologic: No Psychiatric: No Reproductive: No Respiratory: Yes Immunizations Current: Yes Migraines: No Renal Failure: No Seizures: No Thyroid Disease: Yes Ulcer: No Tetanus Vaccination: < 5 Years Influenza Vaccination: Yes Menopausal: Yes Past Surgical History Abdominal Surgery: Yes (APPY 1950) AICD: No Appendectomy: Yes (1950) Body Medical Devices: ATRIAL VALVE Cardiac Surgery: Yes (VALVE REPLACEMENT 2012) Cholecystectomy: Yes (2005) Ear Surgery: No Endocrine Surgery: No Eye Surgery: Yes (cataract 2016) Genitourinary Surgery: No Gynecologic Surgery: Yes (HYSTERECTOMY 1988) Hysterectomy: Yes Joint Replacement: No Neurologic Surgery: No Oral Surgery: No Pacemaker: No Thoracic Surgery: No Valve Replacement: Yes (ATRIAL VALVE REPLACEMENT MODEL 3000FTX) Other Surgery: Yes (ATRIAL STENOSIS REPAIR BOVINE VALVE, MENISCUS REPAIR) Social History Alcohol Use: No Tobacco Use: No Substance Use: No Allergies-Medications (Allergen,Severity, Reaction): Coded Allergies: Heparin (Verified Allergy, Severe, thrombocytopenia, 04/19/17) HIT, CHAPO+ Macrobid (Unverified Allergy, Severe, itching, 04/19/17) Adhesives (Verified Allergy, Intermediate, REDNESS, ITCHING, 04/19/17) Ampicillin (Verified Allergy, Mild, 04/19/17) Contrast Media (Verified Allergy, Mild, 04/19/17) Iodine (Verified Allergy, Mild, 04/19/17) Levaquin (Verified Allergy, Mild, 04/19/17) Sulfa (Verified Allergy, Mild, 04/19/17) *MDRO Multi-Drug Resistant Organism (Verified Adverse Reaction, Unknown, ) CLEARED PER INFECTION CONTROL PROTOCOL 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 2011 MRSA PCR negative 06/26/2015, 06/29/15 & 03/12/17 Reported Meds & Prescriptions Reported Meds & Active Scripts Active Coumadin (Warfarin) 1 Mg Tab 1 Mg PO DIRECTED Ceftriaxone Inj (Ceftriaxone Sodium) 2 Gm Inj 2 Gm IM Q24H 11 Days Ondansetron Odt 4 Mg Tab 4 Mg SL Q6HR PRN 30 Days Coumadin (Warfarin) 3 Mg Tab 3 Mg PO DAILY@16 30 Days Aldactone (Spironolactone) 25 Mg Tab 25 Mg PO DAILY 30 Days Protonix (Pantoprazole Sodium) 40 Mg Tab 40 Mg PO DAILY 30 Days Hydrocodone-Acetaminophen 5-325 mg Tab 1 Tab PO Q4H PRN Cardizem (Diltiazem HCl) 60 Mg Tab 60 Mg PO TID 30 Days Bumetanide 1 Mg Tab 1 Mg PO DAILY 30 Days Lipitor (Atorvastatin Calcium) 10 Mg Tab 10 Mg PO HS 30 Days Levothyroxine (Levothyroxine Sodium) 75 Mcg Tab 75 Mcg PO DAILY Reported Novolog Inj (Insulin Aspart) 1,000 Unit/10 Ml Vial 0 SQ DIRECTED Sliding Scale as directed. Tresiba Flextouch Pen Inj (Insulin Degludec Inj) 300 unit/3 ML Pen 12 Units SQ AC BREAKFAST Review of Systems Except as stated in HPI: all other systems reviewed are Neg Physical Exam Narrative GENERAL: Well-nourished and well-developed pleasant female patient in no acute distress who is nontoxic appearing. SKIN: Warm and dry. Erythematous rash to mons pubis. 3 small erythematous patches to right upper thigh. No warmth, swelling, pain, discharge or drainage. No satellite lesions. HEAD: Normocephalic and atraumatic. EYES: No injection, drainage, or hyphema noted. PERRLA. EOMI. ENT: No nasal drainage noted. Oropharynx is clear. NECK: Supple and the trachea is midline. CARDIOVASCULAR: Regular rate and rhythm. RESPIRATORY: Breath sounds are equal bilaterally with no accessory muscle use, wheezing, rhonchi, or crackles. GASTROINTESTINAL: Abdomen is soft, non-tender, and nondistended. MUSCULOSKELETAL: Stasis dermatitis to bilateral lower legs, around the ankles and lower aspect of the legs. Mild lower extremity edema bilaterally. DP pulses are 2+ bilaterally. No obvious deformities, cyanosis, or ecchymosis is present throughout the upper and lower extremities. Patient has full range of motion without any signs of neurovascular compromise. NEUROLOGICAL: Awake, alert, and oriented. Normal speech and gait. Cranial nerves are grossly intact. Data Data Last Documented VS Vital Signs Date Time Temp Pulse Resp B/P Pulse Ox O2 Delivery O2 Flow Rate FiO2 04/19/17 15:50 16 98 Room Air 04/19/17 15:17 98.0 80 97/50 Orders Prothrombin Time / Inr (Pt) (04/19/17 15:44) Act Partial Throm Time (Ptt) (04/19/17 15:44) Fluconazole (Diflucan) (04/19/17 17:15) Labs Laboratory Tests Test 04/19/17 15:45 Prothrombin Time 53.7 SEC Prothromb Time International 4.5 RATIO Ratio Activated Partial 48.6 SEC Thromboplast Time MDM Medical Decision Making Medical Screen Exam Complete: Yes Emergency Medical Condition: Yes Differential Diagnosis Coumadin toxicity versus INR recheck versus rash versus dermatitis versus allergic reaction Narrative Course 76-year-old female presents to the emergency department for recheck of INR. Patient is afebrile, vital signs are stable. She was just discharged from the hospital 6 days ago and started on Coumadin for the first time. She's been having her INR checked every day for the last 6 days. Yesterday her INR was noted to be 9.1 so she received vitamin K 5 mg subcutaneously and instructed to come back today for repeat INR. She's feeling well and has no active bleeding. Her only complaint she has a new rash that she's noticed on her mons pubis and her right thigh. It doesn't appear infectious or fungal. Possibly an allergic reaction or dermatitis although she's not having any itching. Labs have been sent. INR is 4.5 today. Patient is instructed not to take any Coumadin today. Because it is Friday we will have her come back to the emergency department tomorrow for another INR recheck and determine what dose, if any, Coumadin she should be given tomorrow. As for the rash I have advised her that she can try [id number] Benadryl or hydrocortisone cream. Patient and family verbalized understanding and agreement with treatment plan. I discussed the case with my attending physician Dr. Dawn who is aware of the patients history, physical examination findings, and treatment plan. Diagnosis Primary Impression: Supratherapeutic INR Additional Impression: Rash and nonspecific skin eruption Patient Instructions: Acute Rash (ED), Elevated INR (ED), General Instructions Additional Instructions: Do not take Coumadin today. Return to the emergency department for repeat INR lab tomorrow. We will decide whether you should take any Coumadin tomorrow AFTER we perform the labs. Return to the ED for any acute worsening of symptoms. Med/Other Pt SpecificInfo: No Change to Meds Disposition: 01 DISCHARGE HOME Condition: Stable Bonny Kathleen Apr 19, 2017 16:00
[2017-04-19 16:47] LABS: APTT (PATIENT) 48.6 SEC (24.3-30.1); INTERNATIONAL NORMALIZED RATIO 4.5 RATIO; PROTHROMBIN TIME - PATIENT 53.7 SEC (9.8-11.6)
[2017-04-19] MEDS ORDERED: FLUCONAZOLE 100 MG TAB PO ONE (17:15)
[2017-04-19 17:30] VITALS: BP 105/61
== END 2017-04-19 17:30 | disposition home or self-care (01) ==
LOC: NEPE 15:15
DX: R79.1 Abnormal coagulation profile (principal); R21 Rash and other nonspecific skin eruption; I48.91 Unspecified atrial fibrillation; E11.9 Type 2 diabetes mellitus without complications; N19 Unspecified kidney failure; Z79.01 Long term (current) use of anticoagulants; I10 Essential (primary) hypertension
CPT/HCPCS: 85610; 85730; 99283; J3430

== ENCOUNTER 2017-04-20 12:31 | Emergency (ER) | payer MEDICARE, OTHER ==
[2017-04-20 12:35] VITALS: BP 113/75; PULSE 72; RESP 24; TEMP 98.2; O2SAT 97
--- NOTE | 2017-04-20 12:55 | PD ---
Physical Exam Date Seen by Provider: Apr 20, 2017 Time Seen by Provider: 12:53 Narrative 76 y/o patient with Hx. elevated INR due to her coumadin. Has been seen 3 times in the last week, and given Vitamin K. Patient was instructed to return today for a recheck. No other current complaints. Patients VS stable. Awaiting Bed Placement. Data Data Last Documented VS Vital Signs Date Time Temp Pulse Resp B/P Pulse Ox O2 Delivery O2 Flow Rate FiO2 04/20/17 12:35 98.2 72 24 113/75 97 Room Air [facility] Medical Record Reviewed: Yes Supervised Visit with MINGO: Yes Mushtaq Gao Apr 20, 2017 12:55
--- NOTE | 2017-04-20 15:21 | PD ---
HPI Chief Complaint: Abnormal Results Time Seen by Provider: 15:05 Travel History International Travel<30 days: No Contact w/Intl Traveler<30days: No Traveled to known affect area: No History of Present Illness HPI 76-year-old female with history of aortic stenosis with bovine aortic valve replacement, recent endocarditis, bacteremia with strep viridians as the causative agent. She presents for INR recheck. The patient was discharged from the hospital earlier this week. She was seen here on April 18 for elevated INR. Her INR at that time was 9.1. She received vitamin K. She returned yesterday and her INR was 4.5. She was instructed to return again today because it is Friday for recheck. The patient has been holding her Coumadin as instructed. She has no medical complaints at this time. She has been receiving Rocephin on a daily basis through a PICC line. PFSH Past Medical History Hx Anticoagulant Therapy: Yes (COUMADIN) Arthritis: Yes Asthma: No Autoimmune Disease: Yes (arthritis) Anxiety: No Depression: No Heart Rhythm Problems: No Cancer: No Cardiovascular Problems: Yes (A-FIB) High Cholesterol: Yes Chest Pain: No Congestive Heart Failure: Yes Cirrhosis: Yes (STAGE 4 CHRONIC BILLARY) COPD: No Cerebrovascular Accident: No Diabetes: Yes Diminished Hearing: No Endocrine: Yes Gastrointestinal Disorders: Yes (GERD) GERD: Yes Genitourinary: No Headaches: No Hepatitis: No Hiatal Hernia: Yes Hypertension: Yes Immune Disorder: No Implanted Vascular Access Dvce: No Kidney Stones: No Musculoskeletal: Yes (BACK PAIN, BROKEN PELVIS 2015(NO SURGERY)) Neurologic: No Psychiatric: No Reproductive: No Respiratory: Yes Immunizations Current: Yes Migraines: No Renal Failure: No Seizures: No Thyroid Disease: Yes Ulcer: No Menopausal: Yes Past Surgical History Abdominal Surgery: Yes (APPY 1950) AICD: No Appendectomy: Yes (1950) Body Medical Devices: ATRIAL VALVE Cardiac Surgery: Yes (VALVE REPLACEMENT 2012) Cholecystectomy: Yes (2005) Ear Surgery: No Endocrine Surgery: No Eye Surgery: Yes (cataract 2016) Genitourinary Surgery: No Gynecologic Surgery: Yes (HYSTERECTOMY 1988) Hysterectomy: Yes Joint Replacement: No Neurologic Surgery: No Oral Surgery: No Pacemaker: No Thoracic Surgery: No Valve Replacement: Yes (ATRIAL VALVE REPLACEMENT MODEL 3000FTX) Other Surgery: Yes (ATRIAL STENOSIS REPAIR BOVINE VALVE, MENISCUS REPAIR) Social History Alcohol Use: No Tobacco Use: No Substance Use: No Allergies-Medications (Allergen,Severity, Reaction): Coded Allergies: Heparin (Verified Allergy, Severe, thrombocytopenia, 04/20/17) HIT, CHAPO+ Macrobid (Unverified Allergy, Severe, itching, 04/20/17) Adhesives (Verified Allergy, Intermediate, REDNESS, ITCHING, 04/20/17) Ampicillin (Verified Allergy, Mild, 04/20/17) Contrast Media (Verified Allergy, Mild, 04/20/17) Iodine (Verified Allergy, Mild, 04/20/17) Levaquin (Verified Allergy, Mild, 04/20/17) Sulfa (Verified Allergy, Mild, 04/20/17) *MDRO Multi-Drug Resistant Organism (Verified Adverse Reaction, Unknown, ) CLEARED PER INFECTION CONTROL PROTOCOL 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 2011 MRSA PCR negative 06/26/2015, 06/29/15 & 03/12/17 Reported Meds & Prescriptions Reported Meds & Active Scripts Active Ceftriaxone Inj (Ceftriaxone Sodium) 2 Gm Inj 2 Gm IM Q24H 11 Days Ondansetron Odt 4 Mg Tab 4 Mg SL Q6HR PRN 30 Days Coumadin (Warfarin) 3 Mg Tab 3 Mg PO DAILY@16 30 Days Aldactone (Spironolactone) 25 Mg Tab 25 Mg PO DAILY 30 Days Protonix (Pantoprazole Sodium) 40 Mg Tab 40 Mg PO DAILY 30 Days Hydrocodone-Acetaminophen 5-325 mg Tab 1 Tab PO Q4H PRN Cardizem (Diltiazem HCl) 60 Mg Tab 60 Mg PO TID 30 Days Bumetanide 1 Mg Tab 1 Mg PO DAILY 30 Days Lipitor (Atorvastatin Calcium) 10 Mg Tab 10 Mg PO HS 30 Days Levothyroxine (Levothyroxine Sodium) 75 Mcg Tab 75 Mcg PO DAILY Reported Novolog Inj (Insulin Aspart) 1,000 Unit/10 Ml Vial 0 SQ ACHS SLIDING SCALE Sliding Scale as directed. Tresiba Flextouch Pen Inj (Insulin Degludec Inj) 300 unit/3 ML Pen 12 Units SQ AC BREAKFAST Review of Systems Except as stated in HPI: all other systems reviewed are Neg Physical Exam Narrative GENERAL: Pleasant well developed well-nourished female in no acute distress SKIN: Warm and dry. HEAD: Atraumatic. Normocephalic. EYES: Pupils equal and round. No scleral icterus. No injection or drainage. ENT: No nasal bleeding or discharge. Mucous membranes pink and moist. NECK: Trachea midline. No JVD. CARDIOVASCULAR: Regular rate and rhythm. No murmur appreciated. RESPIRATORY: No accessory muscle use. Clear to auscultation. Breath sounds equal bilaterally. GASTROINTESTINAL: Abdomen soft, non-tender, nondistended. Hepatic and splenic margins not palpable. MUSCULOSKELETAL: No obvious deformities. 2+ lower extremity edema bilaterally. PICC line noted left upper extremity. NEUROLOGICAL: Awake and alert. No obvious cranial nerve deficits. Motor grossly within normal limits. Normal speech. PSYCHIATRIC: Appropriate mood and affect; insight and judgment normal. Data Data Last Documented VS Vital Signs Date Time Temp Pulse Resp B/P Pulse Ox O2 Delivery O2 Flow Rate FiO2 04/20/17 12:35 98.2 72 24 113/75 97 Room Air Orders Prothrombin Time / Inr (Pt) (04/20/17 12:55) Labs Laboratory Tests Test 04/20/17 15:19 Prothrombin Time 26.3 SEC Prothromb Time International 2.3 RATIO Ratio MDM Medical Decision Making Medical Screen Exam Complete: Yes Emergency Medical Condition: Yes Medical Record Reviewed: Yes Differential Diagnosis Supratherapeutic INR, subtherapeutic INR, therapeutic INR Narrative Course 76-year-old female returns for recheck of INR. It has been supratherapeutic over the past few days. INR today is 2.3. The patient is going to call her interrelated special education teacher, Dr. Mcginnis, tomorrow in order to discuss the events of the past several days and to come up with an optimal Coumadin dose going forward. Diagnosis Primary Impression: International normalized ratio (INR) greater than 2 Additional Instructions: Your INR today was 2.3. Call your interrelated special education teacher tomorrow to discuss optimal Coumadin dose. Return for any emergent medical conditions. Med/Other Pt SpecificInfo: No Change to Meds Disposition: 01 DISCHARGE HOME Condition: Stable Mingo Rasmussen Apr 20, 2017 15:21
[2017-04-20 15:53] LABS: INTERNATIONAL NORMALIZED RATIO 2.3 RATIO; PROTHROMBIN TIME - PATIENT 26.3 SEC (9.8-11.6)
== END 2017-04-20 16:45 | disposition home or self-care (01) ==
LOC: NEPD 12:31
DX: R79.1 Abnormal coagulation profile (principal); I48.91 Unspecified atrial fibrillation; E78.00 Pure hypercholesterolemia, unspecified; I50.9 Heart failure, unspecified; E11.9 Type 2 diabetes mellitus without complications; K21.9 Gastro-esophageal reflux disease without esophagitis; I10 Essential (primary) hypertension; Z95.2 Presence of prosthetic heart valve
CPT/HCPCS: 85610; 99283

== ENCOUNTER → 2017-10-13 | Outpatient (CLI) | payer MEDICARE, OTHER ==
--- NOTE | 2017-10-08 08:54 | MH ---
cc: LISA HOLBROOK DATE OF ADMISSION: 10/13/2017 ADMISSION DIAGNOSIS Cloudy posterior capsule, left eye. HISTORY OF PRESENT ILLNESS This 77-year-old white female is coming through [facility] for the purpose of a YAG laser posterior capsulotomy on the left eye. She is status post bilateral cataract surgery with intraocular lens implant and has done well but now notices decreasing acuity in her left eye and was found to have a cloudy posterior capsule and elected to have a YAG laser posterior capsulotomy at this time. PAST MEDICAL HISTORY The patient has a history of: 1. Occipital lobe cerebrovascular accident. 2. Sepsis. 3. Diabetes for 20 years. 4. Myocardial infarction. 5. Cholesterol problems. 6. Thyroid problems. 7. Aortic valve stenosis. 8. Eczema. PAST SURGICAL HISTORY Past surgical history includes: 1. Cataract surgery. 2. Mastoid surgery on the left ear. 3. Vein stripping. 4. Skin cancer. 5. Heart cath. 6. Appendectomy. 7. Left knee arthroscopic surgery. 8. Aortic valve replacement. MEDICATIONS Daily medications include: 1. Cardizem. 2. Diltiazem. 3. Ursodiol. 4. Spironolactone. 5. Prolia injection. 6. Hydrocodone. 7. Systane eye drops. 8. Baby aspirin once a week. 9. Bumetanide. 10. Warfarin. 11. Omeprazole. 12. Colace. 13. Multivitamins. 14. Synthroid. 15. Calcium. 16. Lipitor. 17. Pro-Air. 18. Benadryl. 19. NovoLog. ALLERGIES She is allergic to IODINE, SULFA, AMPICILLIN, LEVAQUIN, NITROFURANTOIN, MACROBID, SUCRALFATE, HEPARIN. FAMILY HISTORY Positive for cataract in the mother. SOCIAL HISTORY/REVIEW OF SYSTEMS Noncontributory. OCULAR EXAMINATION: On ocular exam the patient's best corrected visual acuity is 20/25 -1 in the right eye and 20/30 -1 in the left. Visual vargas are full to confrontation testing. Extraocular muscle exam reveals full versions with orthophoria at distance and near. Pupils are 3 mm equal, round, reactive to light without afferent defect. 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 A posterior chamber intraocular lens is in place bilaterally with a cloudy posterior capsule, greater in the left than the right. Intraocular pressure is 15 in the right eye and 17 in the left by applanation tonometry. Dilated fundus exam revealed sharp disk with cup-to-disk ratio 0.3 bilaterally. The macula is clear bilaterally. There is some drusen along the inferior arcade in the left eye. IMPRESSION 1. Cloudy posterior capsule, left eye greater than right. 2. Pseudophakia, both eyes. 3. Guttata, both eyes. PLAN YAG laser posterior capsulotomy of the left eye through [facility]. MD JOSE Flower/KASEY /8:18 AM /8:37 AM
[~2017-10-13] MED LIST changes: +ALBUAER3 INH; +BALANCED SALT SOLN OPHT IRRIG 15 ML BTL ONE; +CALC1TAB12 PO; -CEFT2INJ IM; +COLA100C5 PO; -COUM1TAB PO; +DENO60P SQ; +DIPH25CA PO; +MOME0.1O20 TOPICAL; +MULTTAB67 PO; +OMEP20TA93 PO; +PHENYLEPHRINE HCL 2.5% OPTH SOLN 2 ML BTL ONE; +PROPARACAINE HCL 0.5% OPHT SOLN 15 ML BTL ONE; +SYSTSOL EACH EYE; +TROPICAMIDE 1% OPHT SOLN 15 ML BTL ONE; +URSO1TAB5 PO
[2017-10-13] MEDS: FLUOROMETHOLONE 0.25% OPHT SUSP 5 ML BTL LEFT EYE ONE ×2 (10:21→13:44)
--- NOTE | 2017-10-13 13:00 | MP ---
cc: LISA KUMAR M.D. DATE OF SURGERY 10/13/2017 PREOPERATIVE DIAGNOSIS Cloudy posterior capsule left eye. POSTOPERATIVE DIAGNOSIS Cloudy posterior capsule left eye. OPERATION YAG laser posterior capsulotomy, left eye. SURGEON Lisa Kumar MD ANESTHESIA Topical COMPLICATIONS None INDICATIONS See history and physical previously dictated. PROCEDURE The patient arrived at [facility]. Blood pressure was 136/77, pulse 71, respirations 18. A drop of Alphagan P and Mydriacyl were instilled in the left eye. The patient was seated at the YAG laser. A drop of Alcaine was instilled in the left eye and a YAG laser posterior capsulotomy lens was placed on the anterior surface of the left cornea. YAG laser posterior capsulotomy was carried out utilizing 40 exposures of 1.6 millijoules. An adequate opening was seen following the procedure. A drop of Alphagan P was instilled topically. The patient was given a prescription for a topical steroid to be used four times per day and has an appointment for follow up on the first postoperative day in my office. The patient left the [facility] in satisfactory condition. MD JOSE Flower/TANJA /11:46 AM /1:00 PM .2
== END ==
LOC: PHSDC 09:16
PROVIDERS: ATTEND Ophthalmology
DX: H26.492 Other secondary cataract, left eye (principal); Z96.1 Presence of intraocular lens; I25.2 Old myocardial infarction; E11.9 Type 2 diabetes mellitus without complications; Z79.01 Long term (current) use of anticoagulants; Z86.73 Personal history of transient ischemic attack (TIA), and cerebral infarction without residual deficits; Z95.2 Presence of prosthetic heart valve

== ENCOUNTER → 2018-04-28 | Day surgery (SDC) | payer MEDICARE, OTHER ==
[~2018-04-28] VITALS: Ht 165.1 cm; Wt 62.2 kg
[~2018-04-28] MED LIST changes: +*morphine SULFATE 4 MG/ML PERIprocedure ONLY ONE; +ACETAMINOPHEN 1000 MG/100 ML 0 ML IV ONE; +ACETAMINOPHEN/HYDROcodone 325 MG/7.5 MG TAB PO PRN; -BALANCED SALT SOLN OPHT IRRIG 15 ML BTL ONE; +BUPIVACAINE/EPINEPHRINE 0.5% PF 30 ML VIAL ONE; +CHLORHEXIDINE GLUCONATE 4% SOLN 120 ML BTL TOPICAL SCH; -COUM3TAB PO; -DENO60P SQ; +DEXAMETHASONE SOD PHOS 4 MG/ML VIAL IV ONE; +DO NOT ADM ANY ANTICOAGULANT DRUGS PRN; +ESMOLOL HCL 100 MG/10 ML VIAL IV ONE; +GLYCOPYRROLATE 1 MG/5 ML SYRINGE IV PUSH ONE; +HYDR-3288 PO; +KETAMINE HCL 50 MG/5 ML SYRINGE ONE; +LABETALOL HCL 100 MG/20 ML VIAL IV ONE; +LACTATED RINGER'S 1000 ML INJ 1,000 ML IV ONE; +LACTATED RINGER'S 1000 ML IV PRN; +LACTATED RINGER'S 1000 ML IV SCH; -LEVO75TA3 PO; +LIDOCAINE 1%/EPINEPHrine 1:100,000 SOLN 20 ML VIAL ONE; +LIDOCAINE HCL 1% PF 5 ML SYRINGE OTHER ONE; +METOPROLOL TARTRATE 25 MG TAB PO PRN; +MIDAZOLAM HCL 2 MG/2 ML VIAL ONE; -MOME0.1O20 TOPICAL; +MORPHINE SULFATE 4 MG/ML INJ IV PUSH PRN; +ONDANSETRON HCL 4 MG/2 ML VIAL IV ONE; -PHENYLEPHRINE HCL 2.5% OPTH SOLN 2 ML BTL ONE; +POTA8TAB PO; -PROPARACAINE HCL 0.5% OPHT SOLN 15 ML BTL ONE; +PROPOFOL 200 MG/20 ML AMP IV ONE; -PROT40TA PO; +SODIUM CHLORID 0.9% 500 ML IV PRN; +SYNT88TA PO; -TROPICAMIDE 1% OPHT SOLN 15 ML BTL ONE; +WARF-18 PO; +ceFAZolin INJ 1,000 MG VIAL ONE
[2018-04-28 09:37] LABS: INTERNATIONAL NORMALIZED RATIO 1.1 RATIO; PROTHROMBIN TIME - PATIENT 11.2 SEC (9.8-11.6)
--- NOTE | 2018-04-28 10:39 | PD.OP ---
cc: Prabhjot Dunbar MD Operative Report Date of Surgery: Apr 28, 2018 Preoperative Diagnosis: Compression fracture T7, subacute Postoperative Diagnosis: Same Procedure: Kyphoplasty of T7 Anesthesia: TIVA Surgeon: Prabhjot Dunbar Ambulance Officer(s): Staff Operation and Findings: EBL: Minimal cc INDICATION: This patient is a 77-year-old female with a subacute fracture at T7 but continued activity on MRI scan with kyphosis and continued significant localizing pain. Despite conservative care the patient continued to be painful and symptomatic PROCEDURE: The patient was brought to the operating room and given light sedation.. The patient was allowed to rolled to a prone position on a well- padded radiolucent table. All pressure points were protected in the back was scrubbed with alcohol followed by Hibiclens followed by ChloraPrep and draped sterilely. A timeout was done and antibiotics were given. AP and lateral radiographic images were used to identify the proper levels and perform skin markings. We started from the left side at the T7 level. Local anesthesia was utilized. A small incision was made. An awl was placed down through the skin subcutaneous tissue and muscle down to the end of the facet joint. This is placed through the pedicle controlling this under AP and lateral images. A proper size balloon was placed through this allowing correction of the deformity. We placed a second balloon from the right side using a identical approach and a 15 mm balloon On the back table methylmethacrylate was mixed. After approximately 11 minutes it was injected at this region. We had no extravasation. The cement was allowed harden. The tubes were removed. Intraoperative x-rays were obtained in AP and lateral plane. The wound was irrigated anesthetized and closed with 4-0 Vicryl followed by Dermabond. The sponge count and needle counts and instrument counts were all correct. The patient tolerated the procedure well as taken to the recovery room in satisfactory condition. FINDINGS: There was a subacute fracture at T7. We were able to lift this with bilateral balloons correcting the deformity. The final solution appeared to be excellent. There was no complication that was appreciated Prabhjot Dunbar MD Apr 28, 2018 10:39
[2018-04-28 12:45] VITALS: BP 136/73; PULSE 69; RESP 18; TEMP 98; O2SAT 99
--- NOTE | 2018-04-28 16:16 | RADRPT ---
EXAM DATE: 04/28/2018 2:56 PM EDT AGE/SEX: 77 years / Female INDICATIONS: T7 kyphoplasty. CLINICAL DATA: This is the patient's initial encounter. Patient reports that signs and symptoms have been present for 1 day and indicates a pain score of Nonresponsive. MEDICAL/SURGICAL HISTORY: Non-responsive. Non-responsive. COMPARISON: No prior exams available for comparison. FINDINGS: AP and lateral views of the midthoracic spine demonstrates bone cement within a mid thoracic vertebra l body. The bone cement is well positioned within the vertebral body without evidence of leakage. CONCLUSION: Status post mid thoracic kyphoplasty Electronically signed by: Trevon Nguyen MD 04/28/2018 4:14 PM EDT
== END | disposition home or self-care (01) ==
LOC: HSDC 06:56
PROVIDERS: ATTEND Orthopaedic Surgery Orthopaedic Surgery of the Spine
DX: S22.060A Wedge compression fracture of T7-T8 vertebra, initial encounter for closed fracture (principal); M40.204 Unspecified kyphosis, thoracic region; E11.9 Type 2 diabetes mellitus without complications; E78.00 Pure hypercholesterolemia, unspecified; M81.0 Age-related osteoporosis without current pathological fracture; X50.9XXA Other and unspecified overexertion or strenuous movements or postures, initial encounter; Y93.89 Activity, other specified; Z79.4 Long term (current) use of insulin; Z79.01 Long term (current) use of anticoagulants; Z95.2 Presence of prosthetic heart valve; Z01.818 Encounter for other preprocedural examination
CPT/HCPCS: 01936; 22513; 72070; 82948; 85610; 85730; J0690; J1100; J2250; J2270; J2405; J7120; J0131

== ENCOUNTER 2018-08-12 21:46 | Observation (INO) ==
[2018-08-12] MEDS ORDERED: Sod Chloride 0.9% Inj 1,000 ML IV.SIG ONE (23:26)
[2018-08-12 23:46] LABS: Baso % (Auto) 0.6 % (0.0-2.0); Eos # (Auto) 0.1 th/mm3 (0.0-0.4); Eos % (Auto) 1.7 % (0.0-4.0); Hematocrit 42.6 % (35.0-46.0); Hemoglobin 14.8 gm/dL (11.6-15.3); Lymph # (Auto) 1.7 th/mm3 (1.0-4.8); Lymph % (Auto) 27.1 % (9.0-44.0); Mean Corpuscular HGB Conc 34.7 % (32.0-36.0); Mean Corpuscular Hemoglobin 29.4 pg (27.0-34.0); Mean Corpuscular Volume 84.7 fL (80.0-100.0); Mean Platelet Volume 8.6 fL (7.0-11.0); Mono # (Auto) 0.4 th/mm3 (0.0-0.9); Mono % (Auto) 5.7 % (0.0-8.0); Neut # (Auto) 4.1 th/mm3 (1.8-7.7); Neut % (Auto) 64.9 % (16.0-70.0); Platelet Count 88 th/mm3 (150-450); Red Blood Count 5.03 mil/mm3 (4.00-5.30); Red Cell Distribution Width 14.2 % (11.6-17.2); White Blood Count 6.3 th/mm3 (4.0-11.0)
[2018-08-12 23:54] LABS: Bacteria,Urine Rare /hpf; Bilirubin,Urine Negative (Negative); Clarity,Urine Clear (Clear); Color,Urine Yellow (Yellw/Straw); Glucose,Urine (UA) Negative (Negative); Hyaline Casts,Urine 1 /lpf (0-3); Leukocyte Esterase,Urine Negative (Negative); Nitrite,Urine Negative (Negative); Specific Gravity,Urine 1.006 (1.002-1.035); Squamous Epithelial Cell,Urine <1 /hpf (0-5)
[2018-08-13] LABS: Activated Partial Thrombo Time 32.3 sec (24.3-30.1); INR 2.6 Ratio; Prothrombin Time 25.8 sec (9.8-11.6)
--- NOTE | 2018-08-13 00:05 | CT ---
EXAM DATE: 08/12/2018 11:35 PM EDT AGE/SEX: 78 years / Female INDICATIONS: General weakness and dysphasia. CLINICAL DATA: This is the patient's initial encounter. Patient reports that signs and symptoms have been present for 1 month and indicates a pain score of 0/10. MEDICAL/SURGICAL HISTORY: Stroke. Hypothyroidism. . Aortic valve replacement. RADIATION DOSE: 56.35 CTDI (mGy) COMPARISON: POI, MR BRAIN W/O CONTRAST, 08/15/2017. . TECHNIQUE: CT of the head without contrast. Using automated exposure control and adjustment of the mA and/or kV according to patient size, radiation dose was kept as low as reasonably achievable to ob tain optimal diagnostic quality images. DICOM format image data is available electronically for revi ew and comparison. FINDINGS: Cerebrum: The ventricles are normal for age. No evidence of midline shift, mass lesion, hemorrhage or acute infarction. No extraaxial fluid collections are seen. Old right occipital lobe encephalomal acia. Posterior Fossa: The cerebellum and brainstem are intact. The 4th ventricle is midline. The cerebe llopontine angle is unremarkable. Extracranial: The visualized portion of the orbits is intact. Skull: The calvaria is intact. No evidence of skull fracture. CONCLUSION: No acute intracranial findings. . Electronically signed by: Russ Taylor MD 08/13/2018 12:03 AM EDT
--- NOTE | 2018-08-13 00:09 | XR ---
EXAM DATE: 08/12/2018 11:26 PM EDT AGE/SEX: 78 years / Female INDICATIONS: Possible CVA. CLINICAL DATA: This is the patient's initial encounter. Patient reports that signs and symptoms have been present for 1 day and indicates a pain score of 0/10. MEDICAL/SURGICAL HISTORY: Hypertension. Diabetes mellitus type I. . Aortic valve replacement. COMPARISON: [facility] [place], CHEST SINGLE AP, 03/21/2017. . FINDINGS: Single AP view the chest. Median sternotomy wires are present. The lungs are clear. Cardia c silhouette mildly prominent. No evidence of pleural effusion or pneumothorax. Evidence of prior ve rtebroplasty or kyphoplasty of a midthoracic vertebral body. CONCLUSION: Mildly prominent cardiac silhouette, decreased in size when compared to the prior study 2016. No acute cardiopulmonary disease identified. Electronically signed by: Russ Taylor MD 08/13/2018 12:07 AM EDT
[2018-08-13 00:19] LABS: Alanine Aminotransferase 35 U/L (10-53); Alkaline Phosphatase 192 U/L (45-117)
[2018-08-13 00:28] LABS: Albumin 3.5 g/dL (3.4-5.0); Anion Gap 10 meq/L (5-15); Aspartate Aminotransferase 53 U/L (15-37); Blood Urea Nitrogen 34 mg/dL (7-18); Calcium 10.6 mg/dL (8.5-10.1); Carbon Dioxide 27.7 meq/L (21.0-32.0); Chloride 101 meq/L (98-107); Glomerular Filtration Rate 40 mL/min (>89); Glucose,Random 180 mg/dL (74-106); Potassium 3.6 meq/L (3.5-5.1); Sodium 139 meq/L (136-145)
[2018-08-13 00:45] LABS: Helmet Cells Occ; Platelet Estimate Normal (Normal); Platelet Morphology Normal (Normal)
[2018-08-13 00:46] LABS: Tear Drop Cells 1+
[2018-08-13] MEDS ORDERED: Dextrose 50% in Water 50 ML Vial IV.PUSH PRN ×2 (02:16→04:46)
--- NOTE | 2018-08-13 03:31 | ED ---
HPI General Chief Complaint: Neuro Symptoms/Deficit Stated Complaint: neuro Time Seen by Provider: 08/12/18 23:11 Source: patient and family Mode of arrival: ambulatory Limitations: no limitations History of Present Illness HPI Narrative: 8-year-old female with past medical history significant for occipital CVA in 2017, diabetes mellitus type 2, MD, hyperlipidemia, thyroid disorder and status post aortic valve replacement and atrial fibrillation on Coumadin presented with complaint of difficulty walking and falling towards the left as well for the past 4 weeks as well as problems with short-term memory and also when she writes after a few words become very very small to the point that she cannot see him anymore. She was started on Forteo for osteoporosis approximately 4 weeks and she thought that it might have been the medication and that is why she did not come for evaluation. She have a left hand deformity which is from . Onset (ago): week(s) (4) Timing confirmed by: spouse History of same: No On Anticoagulants: Yes Related Data Home Medications Medication Instructions Recorded Confirmed Calcium 500 + D (D3) 500 mg PO DAILY 08/12/18 08/12/18 Novolog Flexpen U-100 Insulin 1 unit SUBCUT ACHS 08/12/18 08/12/18 albuterol sulfate [ProAir HFA] 2 puff INHALATION Q4-6H PRN 08/12/18 08/12/18 atorvastatin 10 mg PO DAILY 08/12/18 08/12/18 atorvastatin [Lipitor] 10 mg PO DAILY 08/12/18 08/12/18 bumetanide 1 mg PO DAILY 08/12/18 08/12/18 cholecalciferol (vitamin D3) 1,000 unit PO DAILY 08/12/18 08/12/18 [Vitamin D3] diltiazem HCl [Cardizem] 60 mg PO TID 08/12/18 08/12/18 diphenhydramine HCl [Benadryl] 25 mg PO Q4-6H PRN 08/12/18 08/12/18 hard/soft/gas permeable prods 08/12/18 08/12/18 [Systane Contacts] hydrocodone-acetaminophen 1 tab PO Q4-6H PRN 08/12/18 08/12/18 levothyroxine [Synthroid] 88 mcg PO DAILY 08/12/18 08/12/18 mometasone 1 applic TOPICAL DAILY PRN 08/12/18 08/12/18 cxhpocgj-oakg-koerkew gluconat 15 ml PO DAILY 08/12/18 08/12/18 [Multi-Leticia] omeprazole 20 mg PO DAILY 08/12/18 08/12/18 potassium chloride 8 meq PO DAILY 08/12/18 08/12/18 pyridoxine (vitamin B6) [Vitamin 100 mg PO QID 08/12/18 08/12/18 B-6] spironolactone 25 mg PO DAILY 08/12/18 08/12/18 teriparatide [Forteo] 20 mcg SUBCUT DAILY 08/12/18 08/12/18 warfarin 2.5 mg PO DAILY 08/12/18 08/12/18 Allergies Allergy/AdvReac Type Severity Reaction Status Date / Time enoxaparin Allergy Severe thrombocyto Verified 08/12/18 23:34 penia heparin (porcine) Allergy Severe thrombocyto Verified 08/12/18 23:34 penia nitrofurantoin Allergy Severe itching Verified 08/12/18 23:34 adhesive Allergy Intermediate REDNESS, Verified 08/12/18 23:34 ITCHING ampicillin Allergy Mild Rash Verified 08/12/18 23:34 diatrizoate meglumine Allergy Mild Hives Verified 08/12/18 23:34 gadobenic acid Allergy Mild Hives Verified 08/12/18 23:34 gadodiamide Allergy Mild Hives Verified 08/12/18 23:34 gadoteridol Allergy Mild Hives Verified 08/12/18 23:34 iodine Allergy Mild Hives Verified 08/12/18 23:34 iodixanol Allergy Mild Hives Verified 08/12/18 23:34 iohexol Allergy Mild Hives Verified 08/12/18 23:34 levofloxacin Allergy Mild Rash Verified 08/12/18 23:34 potassium iodide Allergy Mild Hives Verified 08/12/18 23:34 povidone-iodine Allergy Mild Hives Verified 08/12/18 23:34 sodium iodide Allergy Mild Hives Verified 08/12/18 23:34 Sulfa (Sulfonamide Allergy Mild Hives Verified 08/12/18 23:34 Antibiotics) *MDRO Multi-Drug Resistant AdvReac Unknown Hives Uncoded 08/12/18 23:34 Organism Review of Systems ROS: all other systems reviewed are negative [facility] Medical History Medical History Diabetes (Acute) GERD (gastroesophageal reflux disease) (Acute) HTN (hypertension) (Acute) History of stroke (Acute) Hx of sepsis (Acute) Hyperlipidemia (Acute) Hypothyroid (Acute) Surgical History Surgical History History of back surgery (Acute) Hx of aortic valve replacement (Acute) Social History Social History Substance History: No History of Abuse Second Hand Smoke Exposure: No Smoking Status: Never smoker How Often Do You Have a Drink Containing Alcohol: Monthly or less Recent Travel in [facility] within the Last 8 Weeks: No Recent Out of Country Travel within the Last 8 Weeks: No Immunization History Tetanus Immunization: Unsure Hx Influenza Vaccine This Season: Yes Exam Narrative Exam Narrative: GENERAL: Alert and oriented in no distress SKIN: Focused skin assessment warm/dry. HEAD: Atraumatic. Normocephalic. EYES: Pupils equal and round. No scleral icterus. No injection or drainage. ENT: No nasal bleeding or discharge. Mucous membranes pink and moist. NECK: Trachea midline. No JVD. CARDIOVASCULAR: Regular rate and rhythm. No murmur appreciated. RESPIRATORY: No accessory muscle use. Clear to auscultation. Breath sounds equal bilaterally. GASTROINTESTINAL: Abdomen soft, non-tender, nondistended. Hepatic and splenic margins not palpable. MUSCULOSKELETAL: No obvious deformities. No clubbing. No cyanosis. No edema. NEUROLOGICAL: Awake and alert. No obvious cranial nerve deficits. Motor grossly within normal limits. Normal speech. Positive Romberg's, patient leans to the left and falls backwards.. Negative finger to nose. Oadp-yu-vyuf intact, reflexes 1+ bilateral patellar 2+ bilaterally brachial radialis. Motor strength intact upper extremities bilaterally. PSYCHIATRIC: Appropriate mood and affect; insight and judgment normal. Course Hospital Course: Patient was hydrated in the ED, initial head CT was unremarkable discussed with neurology that recommends an MRI in the morning. INR therapeutic at 2.6 no leukocytosis or other signs of infectious process. Reevaluation(s) Reevaluation #1: Patient resting comfortably no distress. Hydrated. Be admitted for further evaluation and neurologic consultation in the a.m. Time: 00:30 Initial Documented Vital Signs Temperature 97.8 F 08/12/18 22:23 Pulse Rate 71 08/12/18 22:23 Respiratory Rate 18 08/12/18 22:23 Blood Pressure 192/78 H 08/12/18 22:23 Pulse Oximetry 99 08/12/18 22:23 Last Documented Vital Signs Temperature 98.0 F 08/13/18 00:05 Pulse Rate 66 08/13/18 03:55 Respiratory Rate 18 08/13/18 03:55 Blood Pressure 179/85 H 08/13/18 03:55 Pulse Oximetry 100 08/13/18 03:55 NIH Stroke Scale NIHSS Time Completed NIHSS Time Completed: 23:15 NIH Stroke Scale Level of Consciousness: 0-Alert Orientation Questions: 0-Answers both correct Responds to Commands: 0-Both tasks correct Gaze Eye Movement: 0-Horizontal movement WNL Visual Worthy: 0-No visual field defect Facial Movement: 0-Normal Motor Functions Arm LEFT: 0-No drift Motor Functions Arm RIGHT: 0-No drift Motor Functions Leg LEFT: 0-No drift Motor Functions Leg RIGHT: 0-No drift Limb Ataxia: 0-No ataxia Sensory Loss: 0-No sensory loss Best Language: 0-Normal Articulation: 0-Normal Extinction or Inattention Sensory: 0-Absent Total: 0 Medical Decision Making MDM Narrative Medical decision making narrative: Patient with unsteady gait and positive Romberg's negative CT head unremarkable Medical Screen Exam Complete: Yes Emergency Medical Condition: Yes Lab Data Lab results reviewed: Yes I reviewed the patient's lab results. Result diagrams: 08/12/18 23:35 08/12/18 23:35 Lab Results 08/12/18 08/12/18 08/12/18 Range/Units 23:35 23:35 23:35 WBC 6.3 (4.0-11.0) th/mm3 RBC 5.03 (4.00-5.30) mil/mm3 Hgb 14.8 (11.6-15.3) gm/dL Hct 42.6 (35.0-46.0) % MCV 84.7 (80.0-100.0) fL MCH 29.4 (27.0-34.0) pg MCHC 34.7 (32.0-36.0) % RDW 14.2 (11.6-17.2) % Plt Count 88 L (150-450) th/mm3 MPV 8.6 (7.0-11.0) fL Prelim Diff (Auto) Slide review pending Neut % (Auto) 64.9 (16.0-70.0) % Lymph % (Auto) 27.1 (9.0-44.0) % [place] % (Auto) 5.7 (0.0-8.0) % Eos % (Auto) 1.7 (0.0-4.0) % Baso % (Auto) 0.6 (0.0-2.0) % Neut # (Auto) 4.1 (1.8-7.7) th/mm3 Lymph # (Auto) 1.7 (1.0-4.8) th/mm3 [place] # (Auto) 0.4 (0.0-0.9) th/mm3 Eos # (Auto) 0.1 (0.0-0.4) th/mm3 Baso # (Auto) 0.0 (0.0-0.2) th/mm3 WBC Differential . Diff Scan Auto diff confirmed Differential Comment . Platelet Estimate Normal (Normal) Platelet Morphology Normal (Normal) Tear Drop Cells 1+ H (None) Helmet Cells Occ H (None) PT 25.8 H (9.8-11.6) sec INR 2.6 Ratio APTT 32.3 H (24.3-30.1) sec Sodium 139 (136-145) meq/L Potassium 3.6 (3.5-5.1) meq/L Chloride 101 (98-107) meq/L Carbon Dioxide 27.7 (21.0-32.0) meq/L Anion Gap 10 (5-15) meq/L BUN 34 H (7-18) mg/dL Creatinine 1.29 H (0.50-1.00) mg/dL Estimated GFR 40 L (>89) mL/min Random Glucose 180 H (74-106) mg/dL Calcium 10.6 H (8.5-10.1) mg/dL Total Bilirubin 1.2 H (0.2-1.0) mg/dL AST 53 H (15-37) U/L ALT 35 (10-53) U/L Alkaline Phosphatase 192 H (45-117) U/L Troponin I Less than 0.02 L (0.02-0.05) ng/mL Total Protein 7.0 (6.4-8.2) g/dL Albumin 3.5 (3.4-5.0) g/dL Urine Color (Yellw/Straw) Urine Clarity (Clear) Urine pH (5.0-8.5) Ur Specific [place] (1.002-1.035) Urine Protein (Neg-Trace) mg/dL Urine Glucose (UA) (Negative) mg/dL Urine Ketones (Negative) mg/dL Urine Occult Blood (Negative) Urine Nitrate (Negative) Urine Bilirubin (Negative) Urine Urobilinogen (Less than 2) mg/dL Ur Leukocyte Esterase (Negative) Urine RBC (0-3) /hpf Urine WBC (0-5) /hpf Ur Squamous Epith Cells (0-5) /hpf Urine Bacteria (None) /hpf Hyaline Casts (0-3) /lpf Micro UA Comment Ur Microscopic Review Urine Culture Comments 08/12/18 Range/Units 23:35 WBC (4.0-11.0) th/mm3 RBC (4.00-5.30) mil/mm3 Hgb (11.6-15.3) gm/dL Hct (35.0-46.0) % MCV (80.0-100.0) fL MCH (27.0-34.0) pg MCHC (32.0-36.0) % RDW (11.6-17.2) % Plt Count (150-450) th/mm3 MPV (7.0-11.0) fL Prelim Diff (Auto) Neut % (Auto) (16.0-70.0) % Lymph % (Auto) (9.0-44.0) % [place] % (Auto) (0.0-8.0) % Eos % (Auto) (0.0-4.0) % Baso % (Auto) (0.0-2.0) % Neut # (Auto) (1.8-7.7) th/mm3 Lymph # (Auto) (1.0-4.8) th/mm3 [place] # (Auto) (0.0-0.9) th/mm3 Eos # (Auto) (0.0-0.4) th/mm3 Baso # (Auto) (0.0-0.2) th/mm3 WBC Differential Diff Scan Differential Comment Platelet Estimate (Normal) Platelet Morphology (Normal) Tear Drop Cells (None) Helmet Cells (None) PT (9.8-11.6) sec INR Ratio APTT (24.3-30.1) sec Sodium (136-145) meq/L Potassium (3.5-5.1) meq/L Chloride (98-107) meq/L Carbon Dioxide (21.0-32.0) meq/L Anion Gap (5-15) meq/L BUN (7-18) mg/dL Creatinine (0.50-1.00) mg/dL Estimated GFR (>89) mL/min Random Glucose (74-106) mg/dL Calcium (8.5-10.1) mg/dL Total Bilirubin (0.2-1.0) mg/dL AST (15-37) U/L ALT (10-53) U/L Alkaline Phosphatase (45-117) U/L Troponin I (0.02-0.05) ng/mL Total Protein (6.4-8.2) g/dL Albumin (3.4-5.0) g/dL Urine Color Yellow (Yellw/Straw) Urine Clarity Clear (Clear) Urine pH 6.0 (5.0-8.5) Ur Specific [place] 1.006 (1.002-1.035) Urine Protein Negative (Neg-Trace) mg/dL Urine Glucose (UA) Negative (Negative) mg/dL Urine Ketones Negative (Negative) mg/dL Urine Occult Blood Negative (Negative) Urine Nitrate Negative (Negative) Urine Bilirubin Negative (Negative) Urine Urobilinogen Less than 2 (Less than 2) mg/dL Ur Leukocyte Esterase Negative (Negative) Urine RBC Less than 1 (0-3) /hpf Urine WBC 2 (0-5) /hpf Ur Squamous Epith Cells <1 (0-5) /hpf Urine Bacteria Rare H (None) /hpf Hyaline Casts 1 (0-3) /lpf Micro UA Comment Culture not ind Ur Microscopic Review Not Reportable Urine Culture Comments Culture not ind Imaging Data Radiologist's impression: Chest X-Ray 08/12/18 23:26 CONCLUSION: Mildly prominent cardiac silhouette, decreased in size when compared to the prior study 2016. No acute cardiopulmonary disease identified. Head CT 08/12/18 23:26 CONCLUSION: No acute intracranial findings. . ECG Data Attestation: I personally reviewed and interpreted this ECG as follows: Interpretation: A. fib with a ventricular rate of 62 bpm. QTc 414[address]-T wave abnormalities. No signs of acute ischemia. Discharge Plan Discharge Disposition Patient Disposition: 30 Still Patient Discharge Condition Condition: Stable Discharge Details Diagnosis: Transient cerebral ischemia, Acute dehydration Physicians Team ED Provider: Dany Chacon Attending Provider: Leonardo Callahan Other Providers: Sandeep Hernandez Discharge Interventions Interventions: Vital Signs Last Done: 08/13/18 03:55 Status ED Status: Admitted Observation Patient
[2018-08-13] MEDS ORDERED: Warfarin Consult Pharmacy OTHER PRN (04:54)
--- NOTE | 2018-08-13 05:05 | P.HPIM ---
History of Present Illness Primary Care Physician: Bonnie Campos History of Present Illness: 78-year-old female with a history of old right occipital infarct in 2017, diabetes mellitus, CAD, hyperlipidemia, hypothyroidism, bovine aortic valve replacement, atrial fibrillation on Coumadin. Who presents with a one-month history of progressively worsening difficulty walking, generalized weakness, left greater than right. She also reports lightheadedness upon standing. She says she is sleeping most of the day Family history reviewed with the patient and found to be currently noncontributory. Review of Systems All other systems reviewed negative except as stated in HPI [facility] - History History Provided By: Patient, Significant Other - Medical History Medical History: Medical History (Last Reviewed 08/13/18 @ 03:59 by Dany Chacon DO) Diabetes GERD (gastroesophageal reflux disease) HTN (hypertension) History of stroke Hx of sepsis Hyperlipidemia Hypothyroid - Surgical History Surgical History: Surgical History (Last Reviewed 08/13/18 @ 03:59 by Dany Chacon DO) History of back surgery Hx of aortic valve replacement - Tobacco History Second Hand Smoke Exposure: No Smoking Status: Never smoker - Alcohol History How Often Do You Have a Drink Containing Alcohol: Monthly or less - Substance Use History Substance History: No History of Abuse - Travel History Recent Travel in the [place] Within the Last 8 Weeks: No Recent Travel Out of the Country Within the Last 8 Weeks: No - Immunization History Tetanus Immunization: Unsure Hx Influenza Vaccine This Season: Yes Medications and Allergies Active Medications: Active Medications Dextrose (D50w Vial) 50 ml IV.PUSH UNSCH PRN PRN Reason: per Hypoglycemic Protocol Glucagon (Glucagon Inj) 1 mg OTHER UNSCH PRN PRN Reason: per Hypoglycemic Protocol Allergies Allergy/AdvReac Type Severity Reaction Status Date / Time enoxaparin Allergy Severe thrombocyto Verified 08/12/18 23:34 penia heparin (porcine) Allergy Severe thrombocyto Verified 08/12/18 23:34 penia nitrofurantoin Allergy Severe itching Verified 08/12/18 23:34 adhesive Allergy Intermediate REDNESS, Verified 08/12/18 23:34 ITCHING ampicillin Allergy Mild Rash Verified 08/12/18 23:34 diatrizoate meglumine Allergy Mild Hives Verified 08/12/18 23:34 gadobenic acid Allergy Mild Hives Verified 08/12/18 23:34 gadodiamide Allergy Mild Hives Verified 08/12/18 23:34 gadoteridol Allergy Mild Hives Verified 08/12/18 23:34 iodine Allergy Mild Hives Verified 08/12/18 23:34 iodixanol Allergy Mild Hives Verified 08/12/18 23:34 iohexol Allergy Mild Hives Verified 08/12/18 23:34 levofloxacin Allergy Mild Rash Verified 08/12/18 23:34 potassium iodide Allergy Mild Hives Verified 08/12/18 23:34 povidone-iodine Allergy Mild Hives Verified 08/12/18 23:34 sodium iodide Allergy Mild Hives Verified 08/12/18 23:34 Sulfa (Sulfonamide Allergy Mild Hives Verified 08/12/18 23:34 Antibiotics) *MDRO Multi-Drug Resistant AdvReac Unknown Hives Uncoded 08/12/18 23:34 Organism Home Medications Medication Instructions Recorded Confirmed Type Calcium 500 + D (D3) 500 mg PO DAILY 08/12/18 08/12/18 History Novolog Flexpen U-100 Insulin 1 unit SUBCUT ACHS 08/12/18 08/12/18 History albuterol sulfate [ProAir HFA] 2 puff INHALATION Q4-6H PRN 08/12/18 08/12/18 History atorvastatin 10 mg PO DAILY 08/12/18 08/12/18 History atorvastatin [Lipitor] 10 mg PO DAILY 08/12/18 08/12/18 History bumetanide 1 mg PO DAILY 08/12/18 08/12/18 History cholecalciferol (vitamin D3) 1,000 unit PO DAILY 08/12/18 08/12/18 History [Vitamin D3] diltiazem HCl [Cardizem] 60 mg PO TID 08/12/18 08/12/18 History diphenhydramine HCl [Benadryl] 25 mg PO Q4-6H PRN 08/12/18 08/12/18 History hard/soft/gas permeable prods 08/12/18 08/12/18 History [Systane Contacts] hydrocodone-acetaminophen 1 tab PO Q4-6H PRN 08/12/18 08/12/18 History levothyroxine [Synthroid] 88 mcg PO DAILY 08/12/18 08/12/18 History mometasone 1 applic TOPICAL DAILY PRN 08/12/18 08/12/18 History mrugbpup-rqle-omvxvmc gluconat 15 ml PO DAILY 08/12/18 08/12/18 History [Multi-Leticia] omeprazole 20 mg PO DAILY 08/12/18 08/12/18 History potassium chloride 8 meq PO DAILY 08/12/18 08/12/18 History pyridoxine (vitamin B6) [Vitamin 100 mg PO QID 08/12/18 08/12/18 History B-6] spironolactone 25 mg PO DAILY 08/12/18 08/12/18 History teriparatide [Forteo] 20 mcg SUBCUT DAILY 08/12/18 08/12/18 History warfarin 2.5 mg PO DAILY 08/12/18 08/12/18 History Exam Vital signs: Vital Signs 08/12/18 22:23 08/12/18 22:29 08/13/18 00:05 Temperature 97.8 F 97.8 F 98.0 F Pulse Rate 71 71 63 Respiratory Rate 18 18 18 Blood Pressure 192/78 H 178/93 H 167/79 H Pulse Oximetry 99 99 100 08/13/18 01:00 08/13/18 02:00 08/13/18 03:14 Temperature Pulse Rate 57 L 53 L 74 Respiratory Rate 18 18 18 Blood Pressure 172/79 H 177/94 H 177/94 H Pulse Oximetry 100 100 08/13/18 03:55 08/13/18 04:17 Temperature 98 F Pulse Rate 66 84 Respiratory Rate 18 16 Blood Pressure 179/85 H 179/80 H Pulse Oximetry 100 100 Intake & Output 08/12/18 08/12/18 08/13/18 06:59 18:59 06:59 Intake Total 1000 / 1000 Balance 1000 / 1000 Weight 61.235 kg Intake: IV 1000 / 1000 NS Inj 1,000 ML @ Wide Open IV. 1000 / 1000 SIG BOLUS ONE Rx#:[id number] Other: # Voids 2 Narrative: GENERAL: Patient sitting up in bed. Appears tired and fatigued. oriented x3. SKIN: Warm and dry. HEAD: Atraumatic. Normocephalic. EYES: Pupils equal and round. No scleral icterus. No injection or drainage. ENT: No nasal bleeding or discharge. Mucous membranes pink and moist. NECK: Trachea midline. No JVD. CARDIOVASCULAR: Regular rate and rhythm. RESPIRATORY: No accessory muscle use. Clear to auscultation. Breath sounds equal bilaterally. GASTROINTESTINAL: Abdomen soft, non-tender, nondistended. Hepatic and splenic margins not palpable. MUSCULOSKELETAL: Extremities without clubbing, cyanosis, or edema. 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 No obvious deformities. NEUROLOGICAL: Awake and alert. No obvious cranial nerve deficits. Motor grossly within normal limits. 4 out of 5 strength in the left upper extremity left lower extremity. PSYCHIATRIC: Appropriate mood and affect; insight and judgment normal. Results - Labs CBC & Chem 7: 08/12/18 23:35 08/12/18 23:35 Labs: Short CBC 08/12/18 Range/Units 23:35 WBC 6.3 (4.0-11.0) th/mm3 Hgb 14.8 (11.6-15.3) gm/dL Hct 42.6 (35.0-46.0) % Plt Count 88 L (150-450) th/mm3 BMP 08/12/18 23:35 Sodium 139 Potassium 3.6 Chloride 101 Carbon Dioxide 27.7 BUN 34 H Creatinine 1.29 H Calcium 10.6 H Cardiac Enzymes 08/12/18 Range/Units 23:35 Troponin I Less than 0.02 L (0.02-0.05) ng/mL Liver Function 08/12/18 Range/Units 23:35 Total Bilirubin 1.2 H (0.2-1.0) mg/dL AST 53 H (15-37) U/L ALT 35 (10-53) U/L Alkaline Phosphatase 192 H (45-117) U/L Albumin 3.5 (3.4-5.0) g/dL Urine 08/12/18 Range/Units 23:35 Urine Color Yellow (Yellw/Straw) Urine Clarity Clear (Clear) Urine pH 6.0 (5.0-8.5) Ur Specific [place] 1.006 (1.002-1.035) Urine Protein Negative (Neg-Trace) mg/dL Urine Glucose (UA) Negative (Negative) mg/dL - Imaging Impressions Chest X-Ray 08/12/18 23:26 CONCLUSION: Mildly prominent cardiac silhouette, decreased in size when compared to the prior study 2016. No acute cardiopulmonary disease identified. Head CT 08/12/18 23:26 CONCLUSION: No acute intracranial findings. . Caprini VTE Risk Assessment Caprini VTE Risk Assessment: Moderate/High Risk (score >= 2) Caprini Risk Assessment Model: Point Value = 1 Point Value = 2 Point Value = 3 Point Value = 5 Age 41-60 Minor surgery BMI > 25 kg/m2 Swollen legs Varicose veins or History of unexplained or recurrent spontaneous Oral contraceptives or hormone replacement Sepsis (< 1 month) Serious lung disease, including pneumonia (< 1 month) Abnormal pulmonary function Acute myocardial infarction Congestive heart failure (< 1 month) History of inflammatory bowel disease Medical patient at bed rest Age 61-74 Arthroscopic surgery Major open surgery (> 45 min) Laparoscopic surgery (> 45 min) Malignancy Confined to bed (> 72 hours) Immobilizing plaster cast Central venous access Age >= 75 History of VTE Family history of VTE Factor V Leiden Prothrombin [id number] Lupus anticoagulant Anticardiolipin antibodies Elevated serum homocysteine Heparin-induced thrombocytopenia Other congenital or acquired thrombophilia Stroke (< 1 month) Elective arthroplasty Hip, pelvis, or leg fracture Acute spinal cord injury (< 1 month) Prophylaxis Regimen: Total Risk Factor Score Risk Level Prophylaxis Regimen 0-1 Low Early ambulation 2 Moderate Order ONE of the following: *Sequential Compression Device (SCD) *Heparin 5000 units SQ BID 3-4 Higher Order ONE of the following medications: *Heparin 5000 units SQ TID *Enoxaparin/Lovenox 40 mg SQ daily (WT < 150 kg, CrCl > 30 mL/min) *Enoxaparin/Lovenox 30 mg SQ daily (WT < 150 kg, CrCl > 10-29 mL/min) *Enoxaparin/Lovenox 30 mg SQ BID (WT < 150 kg, CrCl > 30 mL/min) AND/OR *Sequential Compression Device (SCD) 5 or more Highest Order ONE of the following medications: *Heparin 5000 units SQ TID (Preferred with Epidurals) *Enoxaparin/Lovenox 40 mg SQ daily (WT < 150 kg, CrCl > 30 mL/min) *Enoxaparin/Lovenox 30 mg SQ daily (WT < 150 kg, CrCl > 10-29 mL/min) *Enoxaparin/Lovenox 30 mg SQ BID (WT < 150 kg, CrCl > 30 mL/min) AND *Sequential Compression Device (SCD) Assessment and Plan - Plan //Generalized weakness //Left-sided weakness //History of old right occipital lobe infarct CT brain in ER with no acute findings. = Patient could have vitamin B6 toxicity MRI ordered and pending. Neurology consult ordered and pending. Appreciate assistance. //Diabetes mellitus. Patient will be n.p.o. Insulin sliding scale. Monitor. //History of atrial fibrillation We will continue rate control. Continue warfarin. //History of hypertension. Will allow permissive hypertension pending neurologic workup. //GERD. Continue home medications. //Hypothyroidism. Check TSH. Continue home meds for now. //History of hyperlipidemia. Continue home medication. //Diabetes mellitus. Insulin sliding scale monitor sugars. Discussed Condition With: Patient, nurse, ER physician.
[2018-08-13] MEDS ORDERED: Heparin - SQ 10,000 UNITS/ML Vial SQ SCH (06:00)
[2018-08-13 08:59] LABS: Alkaline Phosphatase 177 U/L (45-117); Total Protein 6.5 g/dL (6.4-8.2)
[2018-08-13] MEDS: Insulin NovoLOG Aspart Correctional Sugar Inj SQ SCH ×4 (09:15→21:38)
[2018-08-13 09:30] LABS: Alanine Aminotransferase 32 U/L (10-53); Albumin 3.2 g/dL (3.4-5.0); Anion Gap 7 meq/L (5-15); Blood Urea Nitrogen 29 mg/dL (7-18); Calcium 10.2 mg/dL (8.5-10.1); Carbon Dioxide 28.7 meq/L (21.0-32.0); Chloride 107 meq/L (98-107); Glomerular Filtration Rate 51 mL/min (>89); Glucose,Random 86 mg/dL (74-106); Sodium 143 meq/L (136-145)
[2018-08-13 09:39] LABS: Aspartate Aminotransferase 61 U/L (15-37); Potassium 3.5 meq/L (3.5-5.1)
[2018-08-13 10:01] LABS: Hepatitis A IgM Antibody Nonreactive (Nonreactive)
[2018-08-13 10:02] LABS: Hepatitits B Surface Antigen Nonreactive (Nonreactive)
[2018-08-13] MEDS: Pantoprazole Sodium 20 MG DR Tablet PO SCH (10:09)
[2018-08-13] MEDS: Levothyroxine 88 MCG Tablet PO SCH (10:09)
[2018-08-13] MEDS: dilTIAZem 60 MG Tablet PO SCH ×3 (10:09→17:28)
--- NOTE | 2018-08-13 10:50 | US ---
EXAM DATE: 08/13/2018 12:00 AM EDT AGE/SEX: 78 years / Female INDICATIONS: Transient ischemic attack. CLINICAL DATA: This is the patient's initial encounter. Patient reports that signs and symptoms have been present for 1 day and indicates a pain score of 0/10. MEDICAL/SURGICAL HISTORY: . GERD. HTN. Stroke. Sepsis. Hyperlipidemia. Hypothyroid. . Ba ck surgery. Aortic valve replacement. COMPARISON: [facility], CTA CAROTID ARTERIES W 3D RECON, 03/12/2017. . VELOCITY PARAMETERS: ICA/CCA Ratio: Right 1.2 , Left 1.8 ICA: Right 84 cm/sec, Left 94 cm/sec CCA: Right 69 cm/sec, Left 53 cm/sec ECA: Right 75 cm/sec, Left 73 cm/sec Vertebral: Right 48 cm/sec antegrade, Left 61 cm/sec antegrade FINDINGS: Right Carotid: Mild arteriosclerotic plaque is visualized.The waveforms are within normal limits. Left Carotid: Mild arteriosclerotic plaque is visualized. The waveforms are within normal limits. Other: None. CONCLUSION: 1. Right Internal Carotid Artery: Mild plaque at the carotid bifurcation without significant stenosi s. 2. Left Internal Carotid Artery: Mild plaque at the carotid bifurcation without significant stenosis . Electronically signed by: Franky Andrews MD 08/13/2018 10:49 AM EDT
--- NOTE | 2018-08-13 11:27 | MR ---
EXAM DATE: 08/13/2018 8:11 AM EDT AGE/SEX: 78 years / Female INDICATIONS: . Difficulty walking and falling towards the left. CLINICAL DATA: This is the patient's subsequent encounter. Patient reports that signs and symptoms h ave been present for 1 month and indicates a pain score of 0/10. MEDICAL/SURGICAL HISTORY: Hypercholesterolemia. Hypertension. Hypothyroidism. diabetes, GERD Appendectomy. Cholecystectomy. Fusion, lumbar. aortic valve repair, LT knee sx COMPARISON: [facility], MR BRAIN W/O CONTRAST, 08/15/2017. . TECHNIQUE: Multiplanar, multisequence examination of the brain was performed without contrast. FINDINGS: No intracranial mass, shift or hydrocephalus. No abnormal extra-axial fluid collections. No acute inf arct identified. Remote small infarct in the right occipital lobe. Mild chronic white matter ischemic changes. CONCLUSION: 1. No acute findings. Remote small infarct right occipital lobe. Electronically signed by: Franky Andrews MD 08/13/2018 11:26 AM EDT
--- NOTE | 2018-08-13 11:30 | MR ---
EXAM DATE: 08/13/2018 8:11 AM EDT AGE/SEX: 78 years / Female INDICATIONS: . Difficulty walking and falling towards the left. CLINICAL DATA: This is the patient's subsequent encounter. Patient reports that signs and symptoms h ave been present for 1 month and indicates a pain score of 0/10. MEDICAL/SURGICAL HISTORY: Hypercholesterolemia. Hypertension. Hypothyroidism. GERD, diabetes Cholecystectomy. Fusion, lumbar. Appendectomy. mastoid sx, aortic valve repair, Lt knee COMPARISON: No prior exams available for comparison. TECHNIQUE: 3D [id number] MRA was performed. Source images, multiplanar STS MIP, and 3D volum e MIP reconstructions were reviewed. FINDINGS: There is excellent visualization of the major intracranial arteries out to the second-order branch ve ssels. There is no evidence for aneurysm, vessel truncation or stenosis, and no evidence for vascula r malformation. CONCLUSION: 1. Negative MRA [place] ([place]) non contrast. Electronically signed by: Franky Andrews MD 08/13/2018 11:28 AM EDT
--- NOTE | 2018-08-13 13:19 | ECHRPT ---
Indication: CVA/TIA CONCLUSIONS The left ventricular systolic function is low normal with an estimated ejection fraction in the rang e of 50- 55%. Wall thickness is normal. Normal left ventricular size. Mild aortic valve regurgitation. Moderate aortic valve stenosis. Mild mitral valve regurgitation. There is mild tricuspid valve regurgitation. The estimated pulmonary arterial pressure is 31 mmHg. The left atrial size is mildly dilated. BP: / HR: 65 Rhythm: Sinus MEASUREMENTS (Male / Female) Normal Values Technical Quality:Good 2D ECHO LV Diastolic Diameter PLAX 4.2 cm 4.2 - 5.9 / 3.9 - 5.3 cm LV Systolic Diameter PLAX 3.2 cm IVS Diastolic Thickness 1.0 cm 0.6 - 1.0 / 0.6 - 0.9 cm LVPW Diastolic Thickness 1.0 cm 0.6 - 1.0 / 0.6 - 0.9 cm LV Relative Wall Thickness 0.5 LVOT Diameter 1.6 cm LA Systolic Diameter LX 4.2 cm 3.0 - 4.0 / 2.7 - 3.8 cm M-MODE Aortic Root Diameter MM 3.0 cm AV Cusp Separation MM 2.1 cm DOPPLER AV Peak Velocity 299.0 cm/s AV Peak Gradient 35.8 mmHg AV Mean Gradient 21.3 mmHg AV Velocity Time Integral 66.1 cm AI Peak Velocity 380.8 cm/s AI Peak Gradient 58.0 mmHg AI Pressure Half Time 766.5 ms LVOT Peak Velocity 125.0 cm/s LVOT Peak Gradient 6.3 mmHg AV Area Cont Eq pk 0.8 cm MR Peak Velocity 358.0 cm/s MR Peak Gradient 51.3 mmHg TR Peak Velocity 227.0 cm/s TR Peak Gradient 20.6 mmHg Right Atrial Pressure 10.0 mmHg Pulmonary Artery Systolic Pressu 30.6 mmHg Right Ventricular Systolic Press 30.6 mmHg PV Peak Velocity 86.9 cm/s PV Peak Gradient 3.0 mmHg FINDINGS LEFT VENTRICLE The left ventricular systolic function is low normal with an estimated ejection fraction in the rang e of 50- 55%. Wall thickness is normal. Normal left ventricular size. RIGHT VENTRICLE Normal right ventricular size and systolic function. LEFT ATRIUM The left atrial size is mildly dilated. RIGHT ATRIUM The right atrial size is normal. ATRIAL SEPTUM Normal atrial septal thickness without atrial level shunting by limited color doppler interrogation. AORTA The aortic root and proximal ascending aorta are normal in size on limited imaging. MITRAL VALVE Mild mitral valve regurgitation. AORTIC VALVE Mild aortic valve regurgitation. Moderate aortic valve stenosis. TRICUSPID VALVE There is mild tricuspid valve regurgitation. The estimated pulmonary arterial pressure is 30.6 mmHg. PULMONARY VALVE No pulmonary valve regurgitation or stenosis. VESSELS The inferior vena cava is normal in size. PERICARDIUM No pericardial effusion. Kendall King MD, FACC (Electronically Signed) Final Date:13 August 2018 13:18
--- NOTE | 2018-08-13 21:40 | MB ---
cc: Sandeep Hernandez MD, PhD DATE: 08/13/2018 REASON FOR CONSULTATION: Ataxia. HISTORY OF PRESENT ILLNESS: Ms. Jerome is a very nice 78-year-old woman who has atrial fibrillation, bovine aortic valve replacement who had an occipital stroke a year ago. She continues on Coumadin. She noticed over the past 4 weeks, she has been having gradually progressive difficulty with her gait with a tendency to veer to the left side. She also had some difficulty with slurring of her speech, some visual symptoms as well, mainly lack of depth perception and trouble walking down stairs. PAST MEDICAL HISTORY: She has a history of a previous stroke about a year ago, history of atrial fibrillation, aortic valve replacement with a bovine valve, hyperlipidemia, hypothyroidism, diabetes, coronary artery disease. CURRENT MEDICATIONS: 1. Lipitor. 2. Coumadin. 3. Synthroid. 4. Protonix. NEUROLOGIC EXAMINATION: VITAL SIGNS: Blood pressure 136/89, pulse 59, respiratory rate 18, temperature 97 degrees. HIGHER CORTICAL FUNCTIONS: Normal. CRANIAL NERVES: She does have some extraocular dysmotility. There is some transient lateral rectus palsies. Pupils are equal and reactive. Other cranial nerves are normal. There is no facial droop. MOTOR: She has 5/5 strength of all groups in the upper and lower extremities with some give-way weakness. Reflexes are trace in both the upper and lower extremities. There is no Babinski sign. IMAGING DATA: MRI of the brain shows an old small infarction in the occipital lobe on the right side with no acute change present. MRA of the brain is within normal limits. Carotid ultrasound, no significant stenosis is identified. Echocardiogram, EF is 50% to 55%. Wall thickness normal. Normal left ventricular size. There is mild aortic valve regurgitation, moderate aortic valve stenosis, mild mitral valve regurgitation, mild tricuspid regurgitation, left atrium mildly dilated. LABORATORY DATA: INR is 2.6, PT 25.8, APTT 32.3. White count 6300, hemoglobin 14.8, hematocrit 42.6%, platelet count 88,000. Sodium 143, potassium 3.5, chloride 107, CO2 of 28.7, BUN 29, creatinine 1.05, GFR 51, glucose 291, AST 61, ALT 32. TSH 2.4. IMPRESSION: Gradually progressive ataxia. She does have extraocular dysmotility in terms of intermittent lateral rectus palsies as well as dysarthria and diminished reflexes. There is no evidence of any acute stroke on the MRI of the brain. Alternative diagnoses would include Kathleen Thakkar syndrome, variant of Guillain-[place] syndrome. Also, myasthenia gravis would be also in the differential. Rule out B12 deficiency. RECOMMENDATION: I will get a B12 level as well as a myasthenia gravis antibody panel. I discussed lumbar puncture with the patient. She cannot have a lumbar puncture while being on Coumadin. SHE IS NOT ABLE TO HAVE BRIDGE THERAPY WITH EITHER LOVENOX OR HEPARIN BECAUSE ACCORDING TO HER MAR, SHE IS ALLERGIC TO THIS, WHICH WAS INDUCED THROMBOCYTOPENIA. I would therefore defer the lumbar puncture at the present time because of the risk of stroke because of her atrial fibrillation if she were to come off Coumadin. If the above workup is negative, may consider an empiric trial of IVIG for the possibility of Kathleen Thakkar syndrome. Sandeep Hernandez MD, PhD ELISSA/jaziel , 08:47 PM , 08:55 PM
--- NOTE | 2018-08-13 22:30 | ECG ---
Date Performed: 08/12/2018 Time Performed: 23:16:39 PTAGE: 78 years EKG: ATRIAL FIBRILLATION NONSPECIFIC ST & T-WAVE ABNORMALITY ABNORMAL RHYTHM ECG PREVIOUS TRACING : 03/13/2017 09.23 Compared to previous tracing, a fib now present DOCTOR: Kendall King Interpretating Date/Time 08/13/2018 22:29:15
[2018-08-13 23:02] LABS: Bacteria,Urine Rare /hpf; Bilirubin,Urine Negative (Negative); Clarity,Urine Clear (Clear); Color,Urine Yellow (Yellw/Straw); Glucose,Urine (UA) 50 mg/dL (Negative); Leukocyte Esterase,Urine Trace (Negative); Nitrite,Urine Negative (Negative); Specific Gravity,Urine 1.011 (1.002-1.035); Squamous Epithelial Cell,Urine 1 /hpf (0-5); Urobilinogen,Urine 4 or Greater mg/dL (Less than 2)
--- NOTE | 2018-08-13 23:05 | MR ---
EXAM DATE: 08/13/2018 8:55 PM EDT AGE/SEX: 78 years / Female INDICATIONS: Myelopathy. CLINICAL DATA: This is the patient's initial encounter. Patient reports that signs and symptoms have been present for 1 day and indicates a pain score of 2/10. MEDICAL/SURGICAL HISTORY: Hypercholesterolemia. Hypothyroidism. Appendectomy. Cholecystectomy . Carotid stent. TSP sx, Mastoid sx, Vein stripping, Aortic valve replaced. COMPARISON: No prior exams available for comparison. TECHNIQUE: Multiplanar, multisequence MRI examination of the cervical spine was performed without co ntrast. FINDINGS: Vertebrae: Normal vertebral body height. Homogeneous marrow signal. Alignment: Normal. Cord: Normal configuration and signal. Post Fossa: The cerebellar tonsils are normal in position. C2-C3: The disc is desiccated but otherwise normal. No foraminal or spinal stenosis. C3-C4: The disc is desiccated. Slight loss of height. Very mild uncovertebral and facet osteoarthrit is, mostly on the right. No significant foraminal or spinal stenosis. C4-C5: The disc is desiccated and has very mild loss of height. There is a small, broad posterior di sc osteophyte complex and mild bilateral uncovertebral and facet osteoarthritis. There is mild bilate ral foraminal stenosis. No spinal stenosis. C5-C6: The disc is desiccated. Minimal loss of height. Mild bilateral uncovertebral and facet osteoa rthritis present. There is slight foraminal encroachment on both sides. C6-C7: The disc is desiccated. Minimal loss of height. There is a small, broad but mostly right para central/foraminal disc protrusion and mild bilateral uncovertebral and facet osteoarthritis. There is mild bilateral foraminal stenosis. No spinal stenosis. C7-T1: The disc is desiccated. There is right side predominant facet osteoarthritis and mild right f oraminal encroachment. CONCLUSION: 1. Intact cervical spine. 2. Mild multilevel degenerative changes contributing to mild degrees of foraminal encroachment as de scribed. 3. No significant spinal stenosis at any level. Cervical cord has normal signal and morphology. Electronically signed by: Reynaldo Lazar MD 08/13/2018 11:04 PM EDT
[2018-08-14 07:50] LABS: Baso % (Auto) 0.8 % (0.0-2.0); Eos # (Auto) 0.1 th/mm3 (0.0-0.4); Eos % (Auto) 2.2 % (0.0-4.0); Hematocrit 38.7 % (35.0-46.0); Hemoglobin 13.1 gm/dL (11.6-15.3); Lymph # (Auto) 1.1 th/mm3 (1.0-4.8); Lymph % (Auto) 25.8 % (9.0-44.0); Mean Corpuscular HGB Conc 33.8 % (32.0-36.0); Mean Corpuscular Hemoglobin 29.3 pg (27.0-34.0); Mean Corpuscular Volume 86.6 fL (80.0-100.0); Mean Platelet Volume 8.9 fL (7.0-11.0); Mono # (Auto) 0.2 th/mm3 (0.0-0.9); Mono % (Auto) 5.2 % (0.0-8.0); Neut # (Auto) 2.9 th/mm3 (1.8-7.7); Platelet Count 75 th/mm3 (150-450); Red Blood Count 4.47 mil/mm3 (4.00-5.30); Red Cell Distribution Width 13.9 % (11.6-17.2); White Blood Count 4.3 th/mm3 (4.0-11.0)
[2018-08-14 07:53] LABS: INR 3.2 Ratio; Prothrombin Time 32.3 sec (9.8-11.6)
[2018-08-14 08:14] LABS: Chol/HDL Ratio 1.98 Ratio; HDL Cholesterol 61.6 mg/dL (40.0-60.0)
[2018-08-14] MEDS: Pantoprazole Sodium 20 MG DR Tablet PO SCH (08:34)
[2018-08-14] MEDS: Levothyroxine 88 MCG Tablet PO SCH (08:34)
[2018-08-14] MEDS: dilTIAZem 60 MG Tablet PO SCH ×3 (08:34→17:34)
[2018-08-14] MEDS: Insulin NovoLOG Aspart Correctional Sugar Inj SQ SCH ×4 (10:05→21:10)
--- NOTE | 2018-08-14 13:15 | P.DCO ---
- Physical Therapy Order: Evaluate and treat, Improve ambulation, Strength and gait training - Occupational Therapy Order: Evaluate and treat, Gross motor coordination - Case Management Consult Yes - Certification I have seen patient Julia Jerome on 08/14/18. My clinical findings support the need for the requested home health care services because: Deconditioned with increased weakness, High risk of falls I certify that my clinical findings support that this patient is homebound because: Unsteady gait/balance
--- NOTE | 2018-08-14 13:19 | P.PN ---
Subjective Interval history: Patient doing well overnight. Patient is tolerating PO, voiding/stooling well. Reports improved balance when walking, no overnight concerns. Physical Exam Vital signs: Vital Signs 08/13/18 15:17 08/13/18 16:00 08/13/18 20:00 Temperature 97.5 F L 97.5 F L 97.9 F Pulse Rate 77 59 L 77 Respiratory Rate 18 18 19 Blood Pressure 140/64 136/89 119/60 Pulse Oximetry 100 100 100 08/13/18 23:48 08/14/18 00:00 08/14/18 03:56 Temperature 97.9 F 97.8 F Pulse Rate 80 63 92 H Respiratory Rate 18 18 Blood Pressure 124/73 130/71 Pulse Oximetry 99 99 08/14/18 04:00 08/14/18 08:00 08/14/18 09:11 Temperature 97.5 F L Pulse Rate 80 65 72 Respiratory Rate 16 Blood Pressure 173/72 H Pulse Oximetry 97 08/14/18 12:00 Temperature 97.3 F L Pulse Rate 76 Respiratory Rate 16 Blood Pressure 174/75 H Pulse Oximetry 100 Intake & Output 08/13/18 08/14/18 08/14/18 18:59 06:59 18:59 Weight 61.518 kg Other: # Voids 0 1 Date of Last Bowel Movement 08/13/18 08/13/18 Narrative: GENERAL: thin, female, IN NAD SKIN: Warm and dry. HEAD: Normocephalic. EYES: No scleral icterus. No injection or drainage. NECK: Supple, trachea midline. No JVD or lymphadenopathy. CARDIOVASCULAR: Regular rate and rhythm without murmurs, gallops, or rubs. RESPIRATORY: Breath sounds equal bilaterally. No accessory muscle use. GASTROINTESTINAL: Abdomen soft, non-tender, nondistended. MUSCULOSKELETAL: No cyanosis, or edema. BACK: Nontender without obvious deformity. No CVA tenderness. NEURO: unsteady gait, sensation intact, motor system 4/5 of all extremities, AAOx3 Results - Labs CBC & Chem 7: 08/14/18 06:45 08/13/18 08:00 Laboratory Results - last 24 hr 08/13/18 08/13/18 08/13/18 08:00 17:38 21:30 WBC RBC Hgb Hct MCV MCH MCHC RDW Plt Count MPV Prelim Diff (Auto) Neut % (Auto) Lymph % (Auto) [place] % (Auto) Eos % (Auto) Baso % (Auto) Neut # (Auto) Lymph # (Auto) [place] # (Auto) Eos # (Auto) Baso # (Auto) WBC Differential Differential Comment PT INR POC Glucose 291 H 215 H Triglycerides Cholesterol LDL Cholesterol, Calc HDL Cholesterol Cholesterol/HDL Ratio Vitamin B12 751 Urine Color Urine Clarity Urine pH Ur Specific [place] Urine Protein Urine Glucose (UA) Urine Ketones Urine Occult Blood Urine Nitrate Urine Bilirubin Urine Urobilinogen Ur Leukocyte Esterase Urine RBC Urine WBC Ur Squamous Epith Cells Urine Bacteria Ur Microscopic Review 08/13/18 08/14/18 08/14/18 22:15 06:45 06:45 WBC RBC Hgb Hct MCV MCH MCHC RDW Plt Count MPV Prelim Diff (Auto) Neut % (Auto) Lymph % (Auto) [place] % (Auto) Eos % (Auto) Baso % (Auto) Neut # (Auto) Lymph # (Auto) [place] # (Auto) Eos # (Auto) Baso # (Auto) WBC Differential Differential Comment PT 32.3 H INR 3.2 POC Glucose Triglycerides 88 Cholesterol 122 LDL Cholesterol, Calc 43 HDL Cholesterol 61.6 H Cholesterol/HDL Ratio 1.98 Vitamin B12 Urine Color Yellow Urine Clarity Clear Urine pH 6.0 Ur Specific [place] 1.011 Urine Protein Negative Urine Glucose (UA) 50 Urine Ketones Negative Urine Occult Blood Negative Urine Nitrate Negative Urine Bilirubin Negative Urine Urobilinogen 4 or greater Ur Leukocyte Esterase Trace H Urine RBC 1 Urine WBC 1 Ur Squamous Epith Cells 1 Urine Bacteria Rare H Ur Microscopic Review Not Reportable 08/14/18 08/14/18 08/14/18 06:45 08:37 12:17 WBC 4.3 RBC 4.47 Hgb 13.1 Hct 38.7 MCV 86.6 MCH 29.3 MCHC 33.8 RDW 13.9 Plt Count 75 L MPV 8.9 Prelim Diff (Auto) Neut % (Auto) 66.0 Lymph % (Auto) 25.8 [place] % (Auto) 5.2 Eos % (Auto) 2.2 Baso % (Auto) 0.8 Neut # (Auto) 2.9 Lymph # (Auto) 1.1 [place] # (Auto) 0.2 Eos # (Auto) 0.1 Baso # (Auto) 0.0 WBC Differential . Differential Comment Auto diff final PT INR POC Glucose 185 H 399 H Triglycerides Cholesterol LDL Cholesterol, Calc HDL Cholesterol Cholesterol/HDL Ratio Vitamin B12 Urine Color Urine Clarity Urine pH Ur Specific [place] Urine Protein Urine Glucose (UA) Urine Ketones Urine Occult Blood Urine Nitrate Urine Bilirubin Urine Urobilinogen Ur Leukocyte Esterase Urine RBC Urine WBC Ur Squamous Epith Cells Urine Bacteria Ur Microscopic Review - Imaging Impressions Cervical Spine MRI 08/13/18 00:00 CONCLUSION: 1. Intact cervical spine. 2. Mild multilevel degenerative changes contributing to mild degrees of foraminal encroachment as described. 3. No significant spinal stenosis at any level. Cervical cord has normal signal and morphology. Assessment and Plan - Assessment (1) Ataxia Code(s): R27.0 - Ataxia, unspecified Status: Acute (2) Diabetes Code(s): E11.9 - Type 2 diabetes mellitus without complications Status: Chronic (3) Hypertension Code(s): I10 - Essential (primary) hypertension Status: Chronic (4) Hyperlipemia Code(s): E78.5 - Hyperlipidemia, unspecified Status: Chronic (5) GERD (gastroesophageal reflux disease) Code(s): K21.9 - Gastro-esophageal reflux disease without esophagitis Status: Chronic (6) Hypothyroid Code(s): E03.9 - Hypothyroidism, unspecified Status: Chronic (7) Acute renal failure Code(s): N17.9 - Acute kidney failure, unspecified Status: Acute (8) Acute dehydration Code(s): E86.0 - Dehydration Status: Acute - Plan 78 y/o CF with PMHx of DM, HTN, Afib, and HLD admitted for IP mgmt of Weakness and Ataxia, rule out for acute CVA, now being worked up by Neuro for other etiologies, HD#2 1. Generalized weakness -Likely due to Dehydration -MRI HEAD: No acute findings. Remote small infarct right occipital lobe. CT Head: No acute findings. -Carotids WNL -PT/OT reccomended at D/C with Rx for rolling walker (face to face and Rx done) -Neurology consulted and appreciate assistance with mgmt- see reccs below. PER NEURO RECCS: Gradually progressive ataxia. Alternative diagnoses would include Kathleen Thakkar syndrome, variant of Guillain-[place] syndrome. Also, myasthenia gravis would be also in the differential. Rule out B12 deficiency. RECOMMENDATION: B12 level, Myasthenia gravis antibody panel. I discussed lumbar puncture with the patient. She cannot have a lumbar puncture while being on Coumadin. SHE IS NOT ABLE TO HAVE BRIDGE THERAPY WITH EITHER LOVENOX OR HEPARIN BECAUSE ACCORDING TO HER MAR, SHE IS ALLERGIC TO THIS, WHICH WAS INDUCED THROMBOCYTOPENIA. I would therefore defer the lumbar puncture at the present time because of the risk of stroke because of her atrial fibrillation if she were to come off Coumadin. If the above workup is negative, may consider an empiric trial of IVIG for the possibility of Kathleen Thakkar syndrome. 2. Diabetes Mellitus, Type II -Diabetic diet -BS elevated at 399, 185, and 215 -Starting Detemir 5U BID and cont. SSI -Pending HgbA1c today 3. History of Atrial Fibrillation -Cont. home Diltiazem and Coumadin (pharmacy dosing) -INR 3.2 today, F/U in AM 4. Hypertension -Holding home Spironolactone due to REED -Resume on D/C 5. GERD -Cont. home PPI 6. Hypothyroidism -TSH WNL -Cont. home Levo 7. HLD -Cont. home statin 8. Thrombocytopenia -Plt 75 today from 88 on admission -Chronic per patient -Has outpatient F/U 9. Elevated LFT's -Dx on admission -Hep Panel Neg -Advised to avoid APAP and ETOH 10. Moderate AV Stenosis -Dx per Echo on 08/13 -Recommend outpatient F/U 11. DVT PPX: Warfarin 12. Dispo: Pending Neuro reccs and lab results, Per PT will need HH with PT/OT on discharge, face to face done, Rx for walker done. Code Status: full Discussed Condition With: patient, KATARZYNA, RN
[2018-08-14 17:23] LABS: Hemoglobin A1c 7.7 % (4.3-6.0)
--- NOTE | 2018-08-14 19:52 | HM ---
Date Performed: 08/13/2018 Time Performed: 18:52:00 HOOKUP DATE: 08/13/18 06:52:00 PM Stefania ANALYSIS START TIME: 08/13/2018 6:57:00 PM ANALYSIS END TIME: 08/14/2018 4:40:59 PM PATIENT AGE: 78 PATIENT HEIGHT PATIENT WEIGHT DRUG LIST PATIENT DIAGNOSIS TEST NARRATIVE: The patient's average heart rate was 78 BPM. Heart rates greater than 120 B PM were noted 4% of the time. Heart rates less than 50 BPM were noted < 1% of the time. 4 pauses exceeding 2.0 seconds were noted. The longest pause of 2.2 seconds occurred at 11:48:30 PM Stefania. 166 ventricular ectopics, which represented < 1% of the total beat count, were noted. The highest v entricular ectopic frequency occurred from 12:00 PM to 01:00 PM Fri. During this time 17 VE(s) occur red. Ventricular ectopics were observed as 166 isolated beat(s) only. No couplets or runs were note d. 5984 supraventricular ectopics, which represented 6% of the total beat count, were noted. The highest supraventricular ectopic frequency occurred from 08:00 PM to 09:00 PM Stefania. During this time 434 SVE(s) occurred. Multiple episodes of ST depression (defined as -1.0 mm or more) were noted in channel 1. The maximum depression of -2.2 mm occurred at 07:52:53 PM Stefania. Multiple episodes of ST depression (defined as -1.0 mm or more) were noted in channel 2. The maximum depression of -2.2 mm occurred at 07:52:53 PM Stefania. Multiple episodes of ST depression (defined as -1.0 mm or more) wer e noted in channel 3. The maximum depression of -2.1 mm occurred at 06:02:55 AM Fri. NO SYMPTOMS ARE RECORDED IN THE PATIENT DIARY TEST INTERPRETATION: No symptoms are noted and no significant pauses are present. Maximum pauses 2.2 seconds. The underlying rhythm is atrial fibrillation with average rate 78 bpm. The range is 44 to 158 bpm. Frequent episodes of rapid response are seen. Rare isolated PVCs are seen. Signed by : Emmett Montana
--- NOTE | 2018-08-14 20:07 | P.PNNEU ---
Subjective Subjective Comments: no new c/o. Patient denies double vision but still is unsteady while walking. She states she had a T7 compression fracture last May treated with kyphoplasty. SHe relates that occasionally her knees buckle and her legs become weak Active Medications: Active Medications Albuterol (Ventolin Hfa Inh) 2 puff INH Q4H PRN PRN Reason: RESPIRATORY DISTRESS Atorvastatin Calcium (Lipitor) 10 mg PO DAILY [facility] Last Admin: 08/14/18 08:34 Dose: 10 mg Dextrose (D50w Vial) 50 ml IV.PUSH UNSCH PRN PRN Reason: PER HYPOGLYCEMIA PROTOCOL Diltiazem HCl (Cardizem) 60 mg PO TID [facility] Last Admin: 08/14/18 17:34 Dose: 60 mg Enalaprilat (Vasotec Inj) 2.5 mg IV.PUSH Q6H PRN PRN Reason: HYPERTENSION Last Admin: 08/14/18 17:35 Dose: 2.5 mg Glucagon (Glucagon Inj) 1 mg OTHER PRN PRN PRN Reason: for Hypoglycemia Protocol Insulin Aspart (Novolog Insulin Correctional Sugar Inj) 0 unit SQ ACHS [facility]; Protocol Last Admin: 08/14/18 18:20 Dose: 7 unit Insulin Detemir (Levemir Inj) 5 unit SQ BID [facility] Levothyroxine Sodium (Synthroid) 88 mcg PO DAILY [facility] Last Admin: 08/14/18 08:34 Dose: 88 mcg Pantoprazole Sodium (Protonix) 20 mg PO DAILY [facility] Last Admin: 08/14/18 08:34 Dose: 20 mg Patient Medication Teaching (Coumadin Booklet) 0 each OTHER [facility] Pharmacy Profile Note (Coumadin Consult Pharmacy) 1 each OTHER UNS PRN PRN Reason: PHARMACY DOCUMENTATION Warfarin Sodium (Coumadin) 2.5 mg PO DAILY@1600 [facility] Last Admin: 08/13/18 17:27 Dose: 2.5 mg Allergies/Adverse Reactions: Allergies Allergy/AdvReac Type Severity Reaction Status Date / Time enoxaparin Allergy Severe thrombocyto Verified 08/12/18 23:34 penia heparin (porcine) Allergy Severe thrombocyto Verified 08/12/18 23:34 penia nitrofurantoin Allergy Severe itching Verified 08/12/18 23:34 adhesive Allergy Intermediate REDNESS, Verified 08/12/18 23:34 ITCHING ampicillin Allergy Mild Rash Verified 08/12/18 23:34 diatrizoate meglumine Allergy Mild Hives Verified 08/12/18 23:34 gadobenic acid Allergy Mild Hives Verified 08/12/18 23:34 gadodiamide Allergy Mild Hives Verified 08/12/18 23:34 gadoteridol Allergy Mild Hives Verified 08/12/18 23:34 iodine Allergy Mild Hives Verified 08/12/18 23:34 iodixanol Allergy Mild Hives Verified 08/12/18 23:34 iohexol Allergy Mild Hives Verified 08/12/18 23:34 levofloxacin Allergy Mild Rash Verified 08/12/18 23:34 potassium iodide Allergy Mild Hives Verified 08/12/18 23:34 povidone-iodine Allergy Mild Hives Verified 08/12/18 23:34 sodium iodide Allergy Mild Hives Verified 08/12/18 23:34 Sulfa (Sulfonamide Allergy Mild Hives Verified 08/12/18 23:34 Antibiotics) *MDRO Multi-Drug Resistant AdvReac Unknown Hives Uncoded 08/12/18 23:34 Organism Physical Exam Vital signs: Vital Signs 08/13/18 23:48 08/14/18 00:00 08/14/18 03:56 Temperature 97.9 F 97.8 F Pulse Rate 80 63 92 H Respiratory Rate 18 18 Blood Pressure 124/73 130/71 Pulse Oximetry 99 99 08/14/18 04:00 08/14/18 08:00 08/14/18 09:11 Temperature 97.5 F L Pulse Rate 80 65 72 Respiratory Rate 16 Blood Pressure 173/72 H Pulse Oximetry 97 08/14/18 12:00 08/14/18 16:00 08/14/18 18:10 Temperature 97.3 F L 97.3 F L Pulse Rate 76 72 Respiratory Rate 16 20 Blood Pressure 174/75 H 191/86 H 146/81 H Pulse Oximetry 100 100 Intake & Output 08/14/18 08/14/18 08/15/18 06:59 18:59 06:59 Other: # Voids 1 Date of Last Bowel Movement 08/13/18 - Routine Neurological Exam alert, speech normal CN intact MOTOR 5/5 BUE and BLE DTR are intact bialterally Objective Radiology Results: MRI cervical spine shows mild to moderate spondylosis but no cord compression Vitmin B12 level is normal myasthenia labs pending Laboratory Results - last 24 hr 08/13/18 08/13/18 08/13/18 08:00 21:30 22:15 WBC RBC Hgb Hct MCV MCH MCHC RDW Plt Count MPV Prelim Diff (Auto) Neut % (Auto) Lymph % (Auto) [place] % (Auto) Eos % (Auto) Baso % (Auto) Neut # (Auto) Lymph # (Auto) [place] # (Auto) Eos # (Auto) Baso # (Auto) WBC Differential Differential Comment PT INR POC Glucose 215 H Triglycerides Cholesterol LDL Cholesterol, Calc HDL Cholesterol Cholesterol/HDL Ratio Vitamin B12 751 Urine Color Yellow Urine Clarity Clear Urine pH 6.0 Ur Specific [place] 1.011 Urine Protein Negative Urine Glucose (UA) 50 Urine Ketones Negative Urine Occult Blood Negative Urine Nitrate Negative Urine Bilirubin Negative Urine Urobilinogen 4 or greater Ur Leukocyte Esterase Trace H Urine RBC 1 Urine WBC 1 Ur Squamous Epith Cells 1 Urine Bacteria Rare H Ur Microscopic Review Not Reportable 08/14/18 08/14/18 08/14/18 06:45 06:45 06:45 WBC 4.3 RBC 4.47 Hgb 13.1 Hct 38.7 MCV 86.6 MCH 29.3 MCHC 33.8 RDW 13.9 Plt Count 75 L MPV 8.9 Prelim Diff (Auto) Neut % (Auto) 66.0 Lymph % (Auto) 25.8 [place] % (Auto) 5.2 Eos % (Auto) 2.2 Baso % (Auto) 0.8 Neut # (Auto) 2.9 Lymph # (Auto) 1.1 [place] # (Auto) 0.2 Eos # (Auto) 0.1 Baso # (Auto) 0.0 WBC Differential . Differential Comment Auto diff final PT 32.3 H INR 3.2 POC Glucose Triglycerides 88 Cholesterol 122 LDL Cholesterol, Calc 43 HDL Cholesterol 61.6 H Cholesterol/HDL Ratio 1.98 Vitamin B12 Urine Color Urine Clarity Urine pH Ur Specific [place] Urine Protein Urine Glucose (UA) Urine Ketones Urine Occult Blood Urine Nitrate Urine Bilirubin Urine Urobilinogen Ur Leukocyte Esterase Urine RBC Urine WBC Ur Squamous Epith Cells Urine Bacteria Ur Microscopic Review 08/14/18 08/14/18 08/14/18 08:37 12:17 18:04 WBC RBC Hgb Hct MCV MCH MCHC RDW Plt Count MPV Prelim Diff (Auto) Neut % (Auto) Lymph % (Auto) [place] % (Auto) Eos % (Auto) Baso % (Auto) Neut # (Auto) Lymph # (Auto) [place] # (Auto) Eos # (Auto) Baso # (Auto) WBC Differential Differential Comment PT INR POC Glucose 185 H 399 H 332 H Triglycerides Cholesterol LDL Cholesterol, Calc HDL Cholesterol Cholesterol/HDL Ratio Vitamin B12 Urine Color Urine Clarity Urine pH Ur Specific [place] Urine Protein Urine Glucose (UA) Urine Ketones Urine Occult Blood Urine Nitrate Urine Bilirubin Urine Urobilinogen Ur Leukocyte Esterase Urine RBC Urine WBC Ur Squamous Epith Cells Urine Bacteria Ur Microscopic Review Review/Management - Diagnosis (1) Ataxia Code(s): R27.0 - Ataxia, unspecified Status: Acute Current Visit: Yes - Review/Management Plan: I doubt myasthenia gravis or guillain barre with intact DTR. THis could be due to thoracic myelopathy (h/o T7 Fx) or lumbar stenosis Will order MRI of thoracic and lumbar spines
[2018-08-14] MEDS: Insulin Detemir Inj 1,000 UNIT/10 ML Vial SQ SCH (20:32)
--- NOTE | 2018-08-14 22:11 | MR ---
EXAM DATE: 08/14/2018 8:31 PM EDT AGE/SEX: 78 years / Female INDICATIONS: Myelopathy. CLINICAL DATA: This is the patient's initial encounter. Patient reports that signs and symptoms have been present for 2 days and indicates a pain score of 5/10. MEDICAL/SURGICAL HISTORY: Hypertension. Hypercholesterolemia. Hypothyroidism. GERD. Appende ctomy. Cholecystectomy. Aortic valve replacement, Mastoid ear sx. COMPARISON: No prior exams available for comparison. TECHNIQUE: Multiplanar, multisequence MRI of the lumbar spine was performed without contrast. Patie nt was scanned in a sitting position; neutral, flexion, and extension scans were performed in the sa gittal plane. FINDINGS: There is mild degenerative disc disease in the lumbar spine. There is normal alignment. Mild disc bul ges are present at L3-4-5 but without canal or foraminal stenosis. Conus medullaris intact without signal abnormality. No direct nerve root compression. Incidental smal l right renal cysts. CONCLUSION: 1. Mild degenerative disc disease. No acute findings. Conus medullaris intact. Electronically signed by: Franky Andrews MD 08/14/2018 10:10 PM EDT
--- NOTE | 2018-08-14 22:25 | MR ---
EXAM DATE: 08/14/2018 8:31 PM EDT AGE/SEX: 78 years / Female INDICATIONS: Myelopathy. CLINICAL DATA: This is the patient's initial encounter. Patient reports that signs and symptoms have been present for 1 day and indicates a pain score of 4/10. MEDICAL/SURGICAL HISTORY: Hypercholesterolemia. Hypertension. Hypothyroidism. Appendectomy. Cholecystectomy. Hysterectomy. Valve replacement sx, Mastoid Ear sx. COMPARISON: [facility], MR THORACIC SPINE W/O CONTRAST, 04/20/2018. . TECHNIQUE: Multiplanar, multisequence MRI of the thoracic spine was performed. FINDINGS: Comparison is April 20, 2018. Kyphoplasty changes are now present at T7 with moderate residual compress ion, slightly improved from April 20 which was pre kyphoplasty. Retropulsion is minimal. There is a mod erate thoracic kyphosis. No significant central canal stenosis. No cord impingement or cord signal ab normality. Small bilateral perineural cysts are present. CONCLUSION: 1. Moderate T7 compression deformity status post kyphoplasty. Minimal residual retropulsion. No sign ificant canal stenosis. No thoracic cord impingement or cord signal abnormality. Moderate kyphosis. Electronically signed by: Franky Andrews MD 08/14/2018 10:24 PM EDT
[2018-08-15 03:46] LABS: INR 2.4 Ratio; Prothrombin Time 24.2 sec (9.8-11.6)
[2018-08-15 03:49] LABS: Baso % (Auto) 0.6 % (0.0-2.0); Eos # (Auto) 0.1 th/mm3 (0.0-0.4); Hematocrit 38.1 % (35.0-46.0); Hemoglobin 13.2 gm/dL (11.6-15.3); Lymph # (Auto) 1.1 th/mm3 (1.0-4.8); Lymph % (Auto) 22.5 % (9.0-44.0); Mean Corpuscular HGB Conc 34.8 % (32.0-36.0); Mean Corpuscular Hemoglobin 29.6 pg (27.0-34.0); Mean Corpuscular Volume 85.3 fL (80.0-100.0); Mean Platelet Volume 9.3 fL (7.0-11.0); Mono # (Auto) 0.3 th/mm3 (0.0-0.9); Mono % (Auto) 5.8 % (0.0-8.0); Neut # (Auto) 3.5 th/mm3 (1.8-7.7); Neut % (Auto) 69.1 % (16.0-70.0); Platelet Count 83 th/mm3 (150-450); Red Blood Count 4.46 mil/mm3 (4.00-5.30); Red Cell Distribution Width 14.4 % (11.6-17.2); White Blood Count 5.1 th/mm3 (4.0-11.0)
[2018-08-15 04:01] LABS: Alanine Aminotransferase 29 U/L (10-53); Anion Gap 9 meq/L (5-15); Aspartate Aminotransferase 34 U/L (15-37); Blood Urea Nitrogen 30 mg/dL (7-18); Calcium 10.2 mg/dL (8.5-10.1); Chloride 107 meq/L (98-107); Glomerular Filtration Rate 42 mL/min (>89); Glucose,Random 110 mg/dL (74-106); Potassium 4.2 meq/L (3.5-5.1); Sodium 145 meq/L (136-145)
[2018-08-15 04:04] LABS: Alkaline Phosphatase 175 U/L (45-117); Total Protein 6.1 g/dL (6.4-8.2)
[2018-08-15 04:23] LABS: Ovalocytes 1+
[2018-08-15 04:24] LABS: Platelet Morphology Normal (Normal)
[2018-08-15 08:50] VITALS: BP 142/73; PULSE 83; RESP 14; TEMP 97.9; O2SAT 99
[2018-08-15] MEDS: Insulin NovoLOG Aspart Correctional Sugar Inj SQ SCH (09:56)
--- NOTE | 2018-08-15 09:58 | P.PN ---
Subjective Interval history: Follow up for ataxia. Patient is resting in bed. She complains of persistent dizziness but no lightheadedness. She is able to ambulate with a walker but still unsteady. No fever, chills. Physical Exam Vital signs: Vital Signs 08/14/18 12:00 08/14/18 16:00 08/14/18 18:10 Temperature 97.3 F L 97.3 F L Pulse Rate 76 72 Respiratory Rate 16 20 Blood Pressure 174/75 H 191/86 H 146/81 H Pulse Oximetry 100 100 08/14/18 20:00 08/15/18 00:00 08/15/18 04:00 Temperature 97.4 F L 98.0 F 98.0 F Pulse Rate 61 59 L 72 Respiratory Rate 18 17 19 Blood Pressure 128/58 L 116/58 L 135/61 Pulse Oximetry 99 99 100 08/15/18 04:23 08/15/18 08:00 Temperature 97.9 F Pulse Rate 62 83 Respiratory Rate 14 Blood Pressure 142/73 H Pulse Oximetry 99 Intake & Output 08/14/18 08/15/18 08/15/18 18:59 06:59 18:59 Other: # Voids 1 Date of Last Bowel Movement 08/13/18 Narrative: GENERAL: thin, female, IN NAD SKIN: Warm and dry. HEAD: Normocephalic. EYES: No scleral icterus. No injection or drainage. NECK: Supple, trachea midline. No JVD or lymphadenopathy. CARDIOVASCULAR: Regular rate and rhythm without murmurs, gallops, or rubs. RESPIRATORY: Breath sounds equal bilaterally. No accessory muscle use. GASTROINTESTINAL: Abdomen soft, non-tender, nondistended. MUSCULOSKELETAL: No cyanosis, or edema. BACK: Nontender without obvious deformity. No CVA tenderness. NEURO: unsteady gait, sensation intact, motor system 4/5 of all extremities, AAOx3 Results - Labs CBC & Chem 7: 08/15/18 02:51 08/15/18 02:59 Laboratory Results - last 24 hr 08/14/18 08/14/18 08/14/18 06:45 12:17 18:04 WBC RBC Hgb Hct MCV MCH MCHC RDW Plt Count MPV Prelim Diff (Auto) Neut % (Auto) Lymph % (Auto) [place] % (Auto) Eos % (Auto) Baso % (Auto) Neut # (Auto) Lymph # (Auto) [place] # (Auto) Eos # (Auto) Baso # (Auto) WBC Differential Diff Scan Differential Comment Platelet Estimate Platelet Morphology Ovalocytes PT INR Sodium Potassium Chloride Carbon Dioxide Anion Gap BUN Creatinine Estimated GFR POC Glucose 399 H 332 H Random Glucose Hemoglobin A1c 7.7 H Calcium Total Bilirubin AST ALT Alkaline Phosphatase Total Protein Albumin 08/14/18 08/15/18 08/15/18 21:06 02:51 02:59 WBC 5.1 RBC 4.46 Hgb 13.2 Hct 38.1 MCV 85.3 MCH 29.6 MCHC 34.8 RDW 14.4 Plt Count 83 L MPV 9.3 Prelim Diff (Auto) Slide review pending Neut % (Auto) 69.1 Lymph % (Auto) 22.5 [place] % (Auto) 5.8 Eos % (Auto) 2.0 Baso % (Auto) 0.6 Neut # (Auto) 3.5 Lymph # (Auto) 1.1 [place] # (Auto) 0.3 Eos # (Auto) 0.1 Baso # (Auto) 0.0 WBC Differential . Diff Scan Auto diff confirmed Differential Comment . Platelet Estimate Low L Platelet Morphology Normal Ovalocytes 1+ H PT 24.2 H INR 2.4 Sodium Potassium Chloride Carbon Dioxide Anion Gap BUN Creatinine Estimated GFR POC Glucose 213 H Random Glucose Hemoglobin A1c Calcium Total Bilirubin AST ALT Alkaline Phosphatase Total Protein Albumin 08/15/18 08/15/18 02:59 08:01 WBC RBC Hgb Hct MCV MCH MCHC RDW Plt Count MPV Prelim Diff (Auto) Neut % (Auto) Lymph % (Auto) [place] % (Auto) Eos % (Auto) Baso % (Auto) Neut # (Auto) Lymph # (Auto) [place] # (Auto) Eos # (Auto) Baso # (Auto) WBC Differential Diff Scan Differential Comment Platelet Estimate Platelet Morphology Ovalocytes PT INR Sodium 145 Potassium 4.2 Chloride 107 Carbon Dioxide 29.0 Anion Gap 9 BUN 30 H Creatinine 1.24 H Estimated GFR 42 L POC Glucose 128 H Random Glucose 110 H Hemoglobin A1c Calcium 10.2 H Total Bilirubin 1.0 AST 34 ALT 29 Alkaline Phosphatase 175 H Total Protein 6.1 L Albumin 3.0 L - Imaging Impressions Lumbar Spine MRI 08/14/18 00:00 CONCLUSION: 1. Mild degenerative disc disease. No acute findings. Conus medullaris intact. Thoracic Spine MRI 08/14/18 00:00 CONCLUSION: 1. Moderate T7 compression deformity status post kyphoplasty. Minimal residual retropulsion. No significant canal stenosis. No thoracic cord impingement or cord signal abnormality. Moderate kyphosis. Assessment and Plan - Assessment (1) Ataxia Code(s): R27.0 - Ataxia, unspecified Status: Acute (2) Diabetes Code(s): E11.9 - Type 2 diabetes mellitus without complications Status: Chronic (3) Hypertension Code(s): I10 - Essential (primary) hypertension Status: Chronic (4) Hyperlipemia Code(s): E78.5 - Hyperlipidemia, unspecified Status: Chronic (5) GERD (gastroesophageal reflux disease) Code(s): K21.9 - Gastro-esophageal reflux disease without esophagitis Status: Chronic (6) Hypothyroid Code(s): E03.9 - Hypothyroidism, unspecified Status: Chronic (7) Acute renal failure Code(s): N17.9 - Acute kidney failure, unspecified Status: Acute (8) Acute dehydration Code(s): E86.0 - Dehydration Status: Acute - Plan 78 y/o CF with PMHx of DM, HTN, Afib, and HLD admitted for IP mgmt of Weakness and Ataxia, rule out for acute CVA, now being worked up by Neuro for other etiologies, HD#2 Progressive generalized ataxia -Likely due to Dehydration -MRI HEAD: No acute findings. Remote small infarct right occipital lobe. CT Head: No acute findings. -Carotids US unremarkable. -PT/OT reccomended at D/C with Rx for rolling walker (face to face and Rx done) -Neurology consulted - recommended MRI of T and L spine which show moderate T7 compression deformity. Diabetes Mellitus, Type II -Starting Detemir 5U BID and cont. SSI -HgbA1c 7.7. History of Atrial Fibrillation -Cont. home Diltiazem and Coumadin (pharmacy dosing) -Will consider switching to long acting Diltiazem (180mg Qday). Hypothyroidism - Continue 88mcg Qday. Hyperlipidemia - continue Lipitor 10mg Qday. Thrombocytopenia -Plt count is around 75-88. -Chronic per patient -Has outpatient F/U Moderate Aortic stenosis -Echo on 08/13/2018 shows AV area 0.8cm^2. -Outpatient Cardiology follow up. Full code. Warfarin. INR 2.4 today.
--- NOTE | 2018-08-15 10:28 | P.PNNEU ---
Subjective Subjective Comments: denies vertigo Active Medications: Active Medications Albuterol (Ventolin Hfa Inh) 2 puff INH Q4H PRN PRN Reason: RESPIRATORY DISTRESS Atorvastatin Calcium (Lipitor) 10 mg PO DAILY [facility] Last Admin: 08/14/18 08:34 Dose: 10 mg Dextrose (D50w Vial) 50 ml IV.PUSH UNSCH PRN PRN Reason: PER HYPOGLYCEMIA PROTOCOL Diltiazem HCl (Cardizem) 60 mg PO TID [facility] Last Admin: 08/14/18 17:34 Dose: 60 mg Enalaprilat (Vasotec Inj) 2.5 mg IV.PUSH Q6H PRN PRN Reason: HYPERTENSION Last Admin: 08/14/18 17:35 Dose: 2.5 mg Glucagon (Glucagon Inj) 1 mg OTHER PRN PRN PRN Reason: for Hypoglycemia Protocol Insulin Aspart (Novolog Insulin Correctional Sugar Inj) 0 unit SQ ACHS [facility]; Protocol Last Admin: 08/15/18 09:56 Dose: Not Given Insulin Detemir (Levemir Inj) 5 unit SQ BID [facility] Last Admin: 08/14/18 20:32 Dose: 5 unit Levothyroxine Sodium (Synthroid) 88 mcg PO DAILY [facility] Last Admin: 08/14/18 08:34 Dose: 88 mcg Pantoprazole Sodium (Protonix) 20 mg PO DAILY [facility] Last Admin: 08/14/18 08:34 Dose: 20 mg [facility] Medication Teaching ([facility] ([facility] Consult Pharmacy) 1 each OTHER UNSCH PRN PRN Reason: PHARMACY DOCUMENTATION Warfarin Sodium (Coumadin) 2.5 mg PO DAILY@1600 [facility] Last Admin: 08/13/18 17:27 Dose: 2.5 mg Allergies/Adverse Reactions: Allergies Allergy/AdvReac Type Severity Reaction Status Date / Time enoxaparin Allergy Severe thrombocyto Verified 08/12/18 23:34 penia heparin (porcine) Allergy Severe thrombocyto Verified 08/12/18 23:34 penia nitrofurantoin Allergy Severe itching Verified 08/12/18 23:34 adhesive Allergy Intermediate REDNESS, Verified 08/12/18 23:34 ITCHING ampicillin Allergy Mild Rash Verified 08/12/18 23:34 diatrizoate meglumine Allergy Mild Hives Verified 08/12/18 23:34 gadobenic acid Allergy Mild Hives Verified 08/12/18 23:34 gadodiamide Allergy Mild Hives Verified 08/12/18 23:34 gadoteridol Allergy Mild Hives Verified 08/12/18 23:34 iodine Allergy Mild Hives Verified 08/12/18 23:34 iodixanol Allergy Mild Hives Verified 08/12/18 23:34 iohexol Allergy Mild Hives Verified 08/12/18 23:34 levofloxacin Allergy Mild Rash Verified 08/12/18 23:34 potassium iodide Allergy Mild Hives Verified 08/12/18 23:34 povidone-iodine Allergy Mild Hives Verified 08/12/18 23:34 sodium iodide Allergy Mild Hives Verified 08/12/18 23:34 Sulfa (Sulfonamide Allergy Mild Hives Verified 08/12/18 23:34 Antibiotics) *MDRO Multi-Drug Resistant AdvReac Unknown Hives Uncoded 08/12/18 23:34 Organism Physical Exam Vital signs: Vital Signs 08/14/18 12:00 08/14/18 16:00 08/14/18 18:10 Temperature 97.3 F L 97.3 F L Pulse Rate 76 72 Respiratory Rate 16 20 Blood Pressure 174/75 H 191/86 H 146/81 H Pulse Oximetry 100 100 08/14/18 20:00 08/15/18 00:00 08/15/18 04:00 Temperature 97.4 F L 98.0 F 98.0 F Pulse Rate 61 59 L 72 Respiratory Rate 18 17 19 Blood Pressure 128/58 L 116/58 L 135/61 Pulse Oximetry 99 99 100 08/15/18 04:23 08/15/18 08:00 Temperature 97.9 F Pulse Rate 62 83 Respiratory Rate 14 Blood Pressure 142/73 H Pulse Oximetry 99 Intake & Output 08/14/18 08/15/18 08/15/18 18:59 06:59 18:59 Other: # Voids 1 Date of Last Bowel Movement 08/13/18 Narrative: awake alert can stand without hands gait steady ox3 with minor difficulty Objective Laboratory Results - last 24 hr 08/14/18 08/14/18 08/14/18 06:45 12:17 18:04 WBC RBC Hgb Hct MCV MCH MCHC RDW Plt Count MPV Prelim Diff (Auto) Neut % (Auto) Lymph % (Auto) [place] % (Auto) Eos % (Auto) Baso % (Auto) Neut # (Auto) Lymph # (Auto) [place] # (Auto) Eos # (Auto) Baso # (Auto) WBC Differential Diff Scan Differential Comment Platelet Estimate Platelet Morphology Ovalocytes PT INR Sodium Potassium Chloride Carbon Dioxide Anion Gap BUN Creatinine Estimated GFR POC Glucose 399 H 332 H Random Glucose Hemoglobin A1c 7.7 H Calcium Total Bilirubin AST ALT Alkaline Phosphatase Total Protein Albumin 08/14/18 08/15/18 08/15/18 21:06 02:51 02:59 WBC 5.1 RBC 4.46 Hgb 13.2 Hct 38.1 MCV 85.3 MCH 29.6 MCHC 34.8 RDW 14.4 Plt Count 83 L MPV 9.3 Prelim Diff (Auto) Slide review pending Neut % (Auto) 69.1 Lymph % (Auto) 22.5 [place] % (Auto) 5.8 Eos % (Auto) 2.0 Baso % (Auto) 0.6 Neut # (Auto) 3.5 Lymph # (Auto) 1.1 [place] # (Auto) 0.3 Eos # (Auto) 0.1 Baso # (Auto) 0.0 WBC Differential . Diff Scan Auto diff confirmed Differential Comment . Platelet Estimate Low L Platelet Morphology Normal Ovalocytes 1+ H PT 24.2 H INR 2.4 Sodium Potassium Chloride Carbon Dioxide Anion Gap BUN Creatinine Estimated GFR POC Glucose 213 H Random Glucose Hemoglobin A1c Calcium Total Bilirubin AST ALT Alkaline Phosphatase Total Protein Albumin 08/15/18 08/15/18 02:59 08:01 WBC RBC Hgb Hct MCV MCH MCHC RDW Plt Count MPV Prelim Diff (Auto) Neut % (Auto) Lymph % (Auto) [place] % (Auto) Eos % (Auto) Baso % (Auto) Neut # (Auto) Lymph # (Auto) [place] # (Auto) Eos # (Auto) Baso # (Auto) WBC Differential Diff Scan Differential Comment Platelet Estimate Platelet Morphology Ovalocytes PT INR Sodium 145 Potassium 4.2 Chloride 107 Carbon Dioxide 29.0 Anion Gap 9 BUN 30 H Creatinine 1.24 H Estimated GFR 42 L POC Glucose 128 H Random Glucose 110 H Hemoglobin A1c Calcium 10.2 H Total Bilirubin 1.0 AST 34 ALT 29 Alkaline Phosphatase 175 H Total Protein 6.1 L Albumin 3.0 L Review/Management - Diagnosis (1) Ataxia Code(s): R27.0 - Ataxia, unspecified Status: Acute Current Visit: Yes - Review/Management Plan: I doubt myasthenia gravis or guillain barre with intact DTR. THis could be due to thoracic myelopathy (h/o T7 Fx) or lumbar stenosis Will order MRI of thoracic and lumbar spines 08/15/18 mri old r cva occpital mra cow and us and echo neg on coumdain may have mild dementia vani c t ls spine neg ok to dc if standing bp ok and call dr jimenez office friday
--- NOTE | 2018-08-15 11:19 | P.DS ---
Date of admission: 08/13/18 02:16 Primary care physician: Bonnie Campos Brief History from admission: 78-year-old female with a history of old right occipital infarct in 2017, diabetes mellitus, CAD, hyperlipidemia, hypothyroidism, bovine aortic valve replacement, atrial fibrillation on Coumadin. Who presents with a one-month history of progressively worsening difficulty walking, generalized weakness, left greater than right. She also reports lightheadedness upon standing. She says she is sleeping most of the day Family history reviewed with the patient and found to be currently noncontributory. DS: Diagnosis - Discharge Diagnosis (1) Ataxia Status: Acute (2) Diabetes Status: Chronic (3) Hypertension Status: Chronic (4) Hyperlipemia Status: Chronic (5) GERD (gastroesophageal reflux disease) Status: Chronic (6) Hypothyroid Status: Chronic (7) Acute renal failure Status: Acute (8) Acute dehydration Status: Acute DS: Summary Hospital Course: 78 y/o CF with PMHx of DM, HTN, Afib, and HLD admitted for IP mgmt of Weakness and Ataxia, rule out for acute CVA, now being worked up by Neuro for other etiologies, HD#2 Progressive generalized ataxia -Likely due to Dehydration -MRI HEAD: No acute findings. Remote small infarct right occipital lobe. CT Head: No acute findings. -Carotids US unremarkable. -PT/OT reccomended at D/C with Rx for rolling walker (face to face and Rx done) -Neurology consulted - recommended MRI of T and L spine which show moderate T7 compression deformity. -Neurology cleared for discharge if standing BP remains within reasonable limit. We checked patient's standing BP and did not drop significantly. We subsequently decided to discharge patient home. Diabetes Mellitus, Type II -Starting Detemir 5U BID and cont. SSI -HgbA1c 7.7. History of Atrial Fibrillation -Cont. home Diltiazem and Coumadin (pharmacy dosing) -Will consider switching to long acting Diltiazem (180mg Qday). Hypothyroidism - Continue 88mcg Qday. Hyperlipidemia - continue Lipitor 10mg Qday. Thrombocytopenia -Plt count is around 75-88. -Chronic per patient -Has outpatient F/U Moderate Aortic stenosis -Echo on 08/13/2018 shows AV area 0.8cm^2. -Outpatient Cardiology follow up. Full code. Warfarin. INR 2.4 today. I discussed with patient and her daughter at length regarding diuretics as well as anticoagulation. - Patient is euvolemic. Her EF is in the normal range. We will d/c Bumex and spironolactone for now. IF there is evidence of volume overload, she can be started on small dose of Torsemide or lasix. - I also encouraged patient to discuss with her sampler radioactive waste (Dr. Monsalve) regarding switching Warfarin to Apixaban or one of the newer anticoagulation meds. - Time Spent with Patient Total time spent providing and/or coordinating discharge services: Less than 30 minutes - Quality: VTE Deep Vein Thrombosis/Pulmonary Embolism Present on Admission: No Exam Vital signs: Vital Signs 08/14/18 12:00 08/14/18 16:00 08/14/18 18:10 Temperature 97.3 F L 97.3 F L Pulse Rate 76 72 Respiratory Rate 16 20 Blood Pressure 174/75 H 191/86 H 146/81 H Pulse Oximetry 100 100 08/14/18 20:00 08/15/18 00:00 08/15/18 04:00 Temperature 97.4 F L 98.0 F 98.0 F Pulse Rate 61 59 L 72 Respiratory Rate 18 17 19 Blood Pressure 128/58 L 116/58 L 135/61 Pulse Oximetry 99 99 100 08/15/18 04:23 08/15/18 08:00 Temperature 97.9 F Pulse Rate 62 83 Respiratory Rate 14 Blood Pressure 142/73 H Pulse Oximetry 99 Intake & Output 08/14/18 08/15/18 08/15/18 18:59 06:59 18:59 Weight 66.3 kg Other: # Voids 1 Date of Last Bowel Movement 08/13/18 Results Procedures completed during hospitalization: None. Labs on day of discharge: Labs from last 24 hours 08/15/18 08/15/18 08/15/18 08:01 02:59 02:59 WBC RBC Hgb Hct MCV MCH MCHC RDW Plt Count MPV Prelim Diff (Auto) Neut % (Auto) Lymph % (Auto) Bacon % (Auto) Eos % (Auto) Baso % (Auto) Neut # (Auto) Lymph # (Auto) Bacon # (Auto) Eos # (Auto) Baso # (Auto) WBC Differential Diff Scan Differential Comment Platelet Estimate Platelet Morphology Ovalocytes PT 24.2 H INR 2.4 Sodium 145 Potassium 4.2 Chloride 107 Carbon Dioxide 29.0 Anion Gap 9 BUN 30 H Creatinine 1.24 H Estimated GFR 42 L POC Glucose 128 H Random Glucose 110 H Hemoglobin A1c Calcium 10.2 H Total Bilirubin 1.0 AST 34 ALT 29 Alkaline Phosphatase 175 H Total Protein 6.1 L Albumin 3.0 L 08/15/18 08/14/18 08/14/18 02:51 21:06 18:04 WBC 5.1 RBC 4.46 Hgb 13.2 Hct 38.1 MCV 85.3 MCH 29.6 MCHC 34.8 RDW 14.4 Plt Count 83 L MPV 9.3 Prelim Diff (Auto) Slide review pending Neut % (Auto) 69.1 Lymph % (Auto) 22.5 Bacon % (Auto) 5.8 Eos % (Auto) 2.0 Baso % (Auto) 0.6 Neut # (Auto) 3.5 Lymph # (Auto) 1.1 Bacon # (Auto) 0.3 Eos # (Auto) 0.1 Baso # (Auto) 0.0 WBC Differential . Diff Scan Auto diff confirmed Differential Comment . Platelet Estimate Low L Platelet Morphology Normal Ovalocytes 1+ H PT INR Sodium Potassium Chloride Carbon Dioxide Anion Gap BUN Creatinine Estimated GFR POC Glucose 213 H 332 H Random Glucose Hemoglobin A1c Calcium Total Bilirubin AST ALT Alkaline Phosphatase Total Protein Albumin 08/14/18 08/14/18 12:17 06:45 WBC RBC Hgb Hct MCV MCH MCHC RDW Plt Count MPV Prelim Diff (Auto) Neut % (Auto) Lymph % (Auto) Bacon % (Auto) Eos % (Auto) Baso % (Auto) Neut # (Auto) Lymph # (Auto) Bacon # (Auto) Eos # (Auto) Baso # (Auto) WBC Differential Diff Scan Differential Comment Platelet Estimate Platelet Morphology Ovalocytes PT INR Sodium Potassium Chloride Carbon Dioxide Anion Gap BUN Creatinine Estimated GFR POC Glucose 399 H Random Glucose Hemoglobin A1c 7.7 H Calcium Total Bilirubin AST ALT Alkaline Phosphatase Total Protein Albumin - Impressions ITS Impressions Chest X-Ray 08/12/18 23:26 CONCLUSION: Mildly prominent cardiac silhouette, decreased in size when compared to the prior study 2016. No acute cardiopulmonary disease identified. Head CT 08/12/18 23:26 CONCLUSION: No acute intracranial findings. . Carotid Doppler Study 08/13/18 00:00 CONCLUSION: 1. Right Internal Carotid Artery: Mild plaque at the carotid bifurcation without significant stenosis. 2. Left Internal Carotid Artery: Mild plaque at the carotid bifurcation without significant stenosis. Cervical Spine MRI 08/13/18 00:00 CONCLUSION: 1. Intact cervical spine. 2. Mild multilevel degenerative changes contributing to mild degrees of foraminal encroachment as described. 3. No significant spinal stenosis at any level. Cervical cord has normal signal and morphology. Head MRI 08/13/18 00:00 CONCLUSION: 1. No acute findings. Remote small infarct right occipital lobe. Head MRA 08/13/18 00:00 CONCLUSION: 1. Negative MRA Cow (Native of [place]) non contrast. Lumbar Spine MRI 08/14/18 00:00 CONCLUSION: 1. Mild degenerative disc disease. No acute findings. Conus medullaris intact. Thoracic Spine MRI 08/14/18 00:00 CONCLUSION: 1. Moderate T7 compression deformity status post kyphoplasty. Minimal residual retropulsion. No significant canal stenosis. No thoracic cord impingement or cord signal abnormality. Moderate kyphosis. Discharge Plan - Discharge Disposition Patient Disposition: /Home Health Service - Discharge Condition Condition: Stable - Discharge Order Discharge Orders: Discharge Order (Routine); Ordered 08/15/18 Ordered By: Cherrie Jon - Discharge Details Anticipated Discharge Date: 08/15/18 - Physicians Team Attending Provider: Cherrie Jon Other Providers: Sandeep Hernandez MD, PhD
[2018-08-15] MEDS: Insulin Detemir Inj 1,000 UNIT/10 ML Vial SQ SCH (11:25)
[2018-08-15] MEDS: dilTIAZem 60 MG Tablet PO SCH (11:26)
[2018-08-15] MEDS: Levothyroxine 88 MCG Tablet PO SCH (11:26)
[2018-08-15] MEDS: Pantoprazole Sodium 20 MG DR Tablet PO SCH (11:26)
== END 2018-08-15 12:23 | disposition home health service (06) ==
LOC: NEPC 21:46 → NEDA 08-13 02:27 → INTOOBSV 08-13 02:27 → NEDA 08-13 04:13 → NEPFCDU 08-13 05:11
PROVIDERS: ADMIT Hospitalist; ATTEND Hospitalist

== ENCOUNTER 2018-10-30 14:26 | Inpatient (IN) ==
[2018-10-30] MEDS ORDERED: Temazepam 15 MG Capsule PO PRN (18:03)
[2018-10-30] MEDS ORDERED: Acetaminophen 325 MG Tablet PO PRN (18:03)
[2018-10-30] MEDS ORDERED: Acetaminophen/Codeine 300/30 MG Tablet PO PRN (18:17)
--- NOTE | 2018-10-30 18:26 | P.HPIM ---
History of Present Illness Primary Care Physician: UNKNOWN Chief Complaint: abdominal distention History of Present Illness: patient is a 78 y/o female with history of Cirrhosis , hypertension, a/p aortic valve replacement, was sent to the hospital by her group cio because of worsening pedal edema and abdominal distention. she says that for the past ten days she noticed that her legs were progressively getting swollen and her abdominal distention has also been getting worse. she had ten-pound weight gain over that period of time. she denies any orthopnea or PND. she denies any chest pain, nausea or vomiting but has some abdominal discomfort.she says that changed her diretic regimen a few days ago but because of worsening edema she was advised to come to the hospital. Inpatient Certification Inpatient Certification: I certify that the inpatient services were ordered in accordance with Medicare regulations governing the order. This includes certification that hospital inpatient services are reasonable and necessary and in the case of services not specified as inpatient-only under 42 CFR 419.22(n), that they are appropriately provided as inpatient services in accordance to with the 2-midnight benchmark under 43 CFR 412.3(e) Review of Systems Review of Systems: all other systems reviewed are negative [facility] Medical History Medical History Diabetes (Acute) GERD (gastroesophageal reflux disease) (Acute) HTN (hypertension) (Acute) History of stroke (Acute) Hx of sepsis (Acute) Hyperlipidemia (Acute) Hypothyroid (Acute) Surgical History Surgical History History of back surgery (Acute) Hx of aortic valve replacement (Acute) Social History Social History Substance History: No History of Abuse Second Hand Smoke Exposure: No Smoking Status: Never smoker How Often Do You Have a Drink Containing Alcohol: Never Medications and Allergies Allergies Allergy/AdvReac Type Severity Reaction Status Date / Time enoxaparin Allergy Severe thrombocyto Verified 09/11/18 17:08 penia heparin (porcine) Allergy Severe thrombocyto Verified 09/11/18 17:08 penia nitrofurantoin Allergy Severe itching Verified 09/11/18 17:08 adhesive Allergy Intermediate REDNESS, Verified 09/11/18 17:08 ITCHING ampicillin Allergy Mild Rash Verified 09/11/18 17:08 diatrizoate meglumine Allergy Mild Hives Verified 09/11/18 17:08 gadobenic acid Allergy Mild Hives Verified 09/11/18 17:08 gadodiamide Allergy Mild Hives Verified 09/11/18 17:08 gadoteridol Allergy Mild Hives Verified 09/11/18 17:08 iodine Allergy Mild Hives Verified 09/11/18 17:08 iodixanol Allergy Mild Hives Verified 09/11/18 17:08 iohexol Allergy Mild Hives Verified 09/11/18 17:08 levofloxacin Allergy Mild Rash Verified 09/11/18 17:08 potassium iodide Allergy Mild Hives Verified 09/11/18 17:08 povidone-iodine Allergy Mild Hives Verified 09/11/18 17:08 sodium iodide Allergy Mild Hives Verified 09/11/18 17:08 Sulfa (Sulfonamide Allergy Mild Hives Verified 09/11/18 17:08 Antibiotics) *MDRO Multi-Drug Resistant AdvReac Unknown Hives Uncoded 08/12/18 23:34 Organism Home Medications Medication Instructions Recorded Confirmed Type Novolog Flexpen U-100 Insulin 1 unit SUBCUT DIRECTED 08/12/18 09/11/18 History albuterol sulfate [ProAir HFA] 2 puff INHALATION Q4-6H PRN 08/12/18 09/11/18 History cholecalciferol (vitamin D3) 1,000 unit PO DAILY 08/12/18 09/11/18 History [Vitamin D3] diltiazem HCl [Cardizem] 120 mg PO BID 08/12/18 09/11/18 History levothyroxine [Synthroid] 88 mcg PO DAILY 08/12/18 09/11/18 History mometasone 1 applic TOPICAL DAILY PRN 08/12/18 09/11/18 History [id number] gluconat 15 ml PO DAILY 08/12/18 09/11/18 History [Multi-Leticia] omeprazole 20 mg PO DAILY 08/12/18 09/11/18 History pyridoxine (vitamin B6) [Vitamin 100 mg PO DAILY 08/12/18 09/11/18 History B-6] teriparatide [Forteo] 20 mcg SUBCUT DAILY 08/12/18 09/11/18 History warfarin 2.5 mg PO DAILY 08/12/18 10/30/18 History [id number] 1,000 mg PO DAILY 09/11/18 09/11/18 History ursodiol 500 mg PO BID 09/11/18 09/11/18 History warfarin See Label Instructions .ROUTE 09/11/18 10/30/18 History .COMPLEX Active Medications: Active Medications Acetaminophen (Tylenol) 650 mg PO Q4H PRN PRN Reason: Temp > 100.4 Al Hydroxide/Mg Hydroxide (Milk Of Sandy Torres) 30 ml PO Q12H PRN PRN Reason: Mild Constipation Temazepam (Restoril) 15 mg PO HS PRN PRN Reason: INSOMNIA Physical Exam Constitutional no acute distress Routine HEENT Exam Eye: Present PERRL Routine Neck Exam Present supple Routine Respiratory Exam Present CTA bilaterally Routine Cardiovascular Exam Present RRR Routine Abdominal Exam Present soft and distended Routine Extremities Exam Comments: significant pedla edema bilaterally. Routine Neurological Exam Present alert and oriented X3 Results Labs CBC & Chem 7: 10/30/18 18:33 10/30/18 18:33 Caprini VTE Risk Assessment Caprini VTE Risk Assessment: Moderate/High Risk (score >= 2) Caprini Risk Assessment Model: Point Value = 1 Point Value = 2 Point Value = 3 Point Value = 5 Age 41-60 Minor surgery BMI > 25 kg/m2 Swollen legs Varicose veins or History of unexplained or recurrent spontaneous Oral contraceptives or hormone replacement Sepsis (< 1 month) Serious lung disease, including pneumonia (< 1 month) Abnormal pulmonary function Acute myocardial infarction Congestive heart failure (< 1 month) History of inflammatory bowel disease Medical patient at bed rest Age 61-74 Arthroscopic surgery Major open surgery (> 45 min) Laparoscopic surgery (> 45 min) Malignancy Confined to bed (> 72 hours) Immobilizing plaster cast Central venous access Age >= 75 History of VTE Family history of VTE Factor V Leiden Prothrombin [id number] Lupus anticoagulant Anticardiolipin antibodies Elevated serum homocysteine Heparin-induced thrombocytopenia Other congenital or acquired thrombophilia Stroke (< 1 month) Elective arthroplasty Hip, pelvis, or leg fracture Acute spinal cord injury (< 1 month) Prophylaxis Regimen: Total Risk Factor Score Risk Level Prophylaxis Regimen 0-1 Low Early ambulation 2 Moderate Order ONE of the following: *Sequential Compression Device (SCD) *Heparin 5000 units SQ BID 3-4 Higher Order ONE of the following medications: *Heparin 5000 units SQ TID *Enoxaparin/Lovenox 40 mg SQ daily (WT < 150 kg, CrCl > 30 mL/min) *Enoxaparin/Lovenox 30 mg SQ daily (WT < 150 kg, CrCl > 10-29 mL/min) *Enoxaparin/Lovenox 30 mg SQ BID (WT < 150 kg, CrCl > 30 mL/min) AND/OR *Sequential Compression Device (SCD) 5 or more Highest Order ONE of the following medications: *Heparin 5000 units SQ TID (Preferred with Epidurals) *Enoxaparin/Lovenox 40 mg SQ daily (WT < 150 kg, CrCl > 30 mL/min) *Enoxaparin/Lovenox 30 mg SQ daily (WT < 150 kg, CrCl > 10-29 mL/min) *Enoxaparin/Lovenox 30 mg SQ BID (WT < 150 kg, CrCl > 30 mL/min) AND *Sequential Compression Device (SCD) Assessment and Plan Plan A/P - Anasarca with history of Cirrhosis start on IV diuretic and monitor I/O- check abdominal sonogram/ CXR- consult GI and Cardiology. -s/p bovine aortic valve replacement/ a-fib- will check INR and resume Coumadin. on Nadolol. - hypertension; started on Nadolol- continue to monitor and adjust the regimen as needed. -diabetes mellitus; start on accu-check with SSI -Hypothyroidism; resume Levothyroxine when dose has bee verified. -DVT prophylaxis; on Coumadin;monitor PT/INR.
[2018-10-30] MEDS ORDERED: Dextrose 50% in Water 50 ML Vial IV.PUSH PRN (18:31)
[2018-10-30 18:41] LABS: Baso % (Auto) 1.1 % (0.0-2.0); Eos # (Auto) 0.1 th/mm3 (0.0-0.4); Eos % (Auto) 1.3 % (0.0-4.0); Hematocrit 34.3 % (35.0-46.0); Hemoglobin 11.3 gm/dL (11.6-15.3); Lymph # (Auto) 0.8 th/mm3 (1.0-4.8); Lymph % (Auto) 19.2 % (9.0-44.0); Mean Corpuscular Hemoglobin 28.8 pg (27.0-34.0); Mean Corpuscular Volume 87.4 fL (80.0-100.0); Mean Platelet Volume 7.4 fL (7.0-11.0); Mono # (Auto) 0.4 th/mm3 (0.0-0.9); Mono % (Auto) 9.1 % (0.0-8.0); Neut # (Auto) 2.8 th/mm3 (1.8-7.7); Neut % (Auto) 69.3 % (16.0-70.0); Platelet Count 99 th/mm3 (150-450); Red Blood Count 3.92 mil/mm3 (4.00-5.30); Red Cell Distribution Width 14.6 % (11.6-17.2)
[2018-10-30 18:52] LABS: Activated Partial Thrombo Time 35.2 sec (23.4-31.7); INR 2.9 Ratio; Prothrombin Time 29.6 sec (9.8-11.6)
[2018-10-30 19:03] LABS: Albumin 2.9 g/dL (3.4-5.0); Anion Gap 7 meq/L (5-15); Aspartate Aminotransferase 37 U/L (15-37); Blood Urea Nitrogen 23 mg/dL (7-18); Calcium 8.4 mg/dL (8.5-10.1); Chloride 104 meq/L (98-107); Glomerular Filtration Rate 47 mL/min (>89); Glucose,Random 345 mg/dL (74-106); Potassium 3.6 meq/L (3.5-5.1); Sodium 139 meq/L (136-145)
[2018-10-30 19:05] LABS: Alanine Aminotransferase 32 U/L (10-53)
[2018-10-30 19:07] LABS: Alkaline Phosphatase 231 U/L (45-117); Total Protein 6.4 g/dL (6.4-8.2)
[2018-10-30 19:27] LABS: Ovalocytes 1+; Platelet Morphology Normal (Normal)
--- NOTE | 2018-10-30 19:58 | XR ---
EXAM DATE: 10/30/2018 7:56 PM EST AGE/SEX: 78 years / Female INDICATIONS: Anasarca and ascites. CLINICAL DATA: This is the patient's initial encounter. Patient reports that signs and symptoms have been present for 1 day and indicates a pain score of 0/10. MEDICAL/SURGICAL HISTORY: . Hypertension. Diabetes mellitus type I. . Aortic valve replacement. . COMPARISON: [facility] [place] 1V SINGLE AP, 09/11/2018. . FINDINGS: Subtle obscuration of the left hemidiaphragm which may reflect mild airspace disease. The cardiomedia stinal contours are stable. Cement augmentation changes in the thoracic spine. Osseous structures are otherwise grossly intact. CONCLUSION: 1. Subtle airspace disease in the left lower lung zone, presumably atelectasis. Electronically signed by: Bradford Hoyt MD Board Certified Radiologist 10/30/2018 7:57 PM SERA T
[2018-10-30] MEDS: Furosemide 40 MG Tablet PO SCH (20:10)
[2018-10-30 21:53] LABS: Bacteria,Urine Rare /hpf; Bilirubin,Urine Negative (Negative); Clarity,Urine Clear (Clear); Color,Urine Yellow (Yellw/Straw); Glucose,Urine (UA) 500 or Greater mg/dL (Negative); Leukocyte Esterase,Urine Negative (Negative); Nitrite,Urine Negative (Negative); Specific Gravity,Urine 1.009 (1.002-1.035); Squamous Epithelial Cell,Urine <1 /hpf (0-5)
--- NOTE | 2018-10-30 21:58 | MB ---
cc: Garrett Diaz MD, Sunil P MD Minouei,Giselle Monsalve,Josep Garcia,Jey BARFIELD DATE: 10/30/2018 REASON FOR CONSULTATION: I have been asked to see the patient at the request of Dr. Monsalve for evaluation of cirrhosis and possible ascites. HISTORY OF PRESENT ILLNESS: The patient is a pleasant 78-year-old white female who is followed by Dr. Garcia in the office. 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 She has been on ursodeoxycholic acid in this regard. She was seen early in the office and the patient was undergoing hepatoma surveillance and a recent MRI in August revealed a cirrhotic liver without any lesions there; however, there was evidence of varices. Dr. Garcia wanted her to switch from Cardizem to a nonselective beta edd. Interestingly, in 03/2017, upper endoscopy did not show any varices. Apparently, she was seen by Dr. Monsalve today and because of increasing edema in lower extremities and abdominal distention, she was admitted to the hospital for further evaluation. Of note, her MRI in 08/2018 did not show any ascites. At this time, she denies any dysphagia, odynophagia, early satiety, nausea or vomiting. No melena, diarrhea, constipation. She has swollen extremities, which are painful. Sometimes the abdominal distention causes problems breathing also, but she denied any chest pain. PAST MEDICAL HISTORY: Cirrhosis of liver, thought to be the basis of primary biliary cirrhosis. She has hepatic encephalopathy, which is controlled with Xifaxan. Pedal edema, abdominal distention, esophageal varices based on MRI in 08/2018. However, upper endoscopy in 03/2017 did not show esophageal varices. She has had aortic stenosis and had a valve replaced. There is some question of endocarditis, according to the , but this is not confirmed. Other past medical history includes diabetes, GERD, although is not a major problem now, hypertension, CVA, sepsis, dyslipidemia, hypothyroidism. Atrial fibrillation - She required warfarin in this regard. PAST SURGICAL HISTORY: Includes back surgery, aortic valve replacement. She has a bovine valve. Hysterectomy, cholecystectomy, meniscus repair of left knee, venous stripping, appendectomy. SOCIAL HISTORY: Does not currently smoke or drink. REVIEW OF SYSTEMS: GENERAL: No weight loss or fever or chills. CARDIOPULMONARY: No chest pain or palpitations wheezes, shortness of breath at the time. GASTROINTESTINAL: Please see above. Otherwise, unremarkable 12-point review of systems. As mentioned above, she does have lower extremity pain from swelling of her legs. ALLERGIES: ACCORDING TO OUR RECORDS ARE AMPICILLIN, HEPARIN, IODINE, LEVAQUIN, NITROFURANTOIN, CARAFATE, SULFA, TETRACYCLINE, AND SOMETHING CALLED MACROCRYSTALLINE. ALLERGIES DOCUMENTED IN THE HOSPITAL RECORD HERE ARE ENOXAPARIN, HEPARIN, ADHESIVE TAPE, NITROFURANTOIN, AMPICILLIN, GADOBENIC ACID, DIATRIZOATE MEGLUMINE, IODINE, LEVOFLOXACIN, POTASSIUM IODIDE, SULFA. FAMILY HISTORY: She denies any family history of any colon cancer or colon polyps. INPATIENT MEDICATIONS: Current include: 1. Tylenol. 2. Milk of magnesia. 3. Tylenol with codeine. 5. Ecotrin. 6. Lasix 40 mg b.i.d. 7. Glucagon. 8. Restoril. MEDICATIONS AT THE OFFICE: 1. Bumex. 2. Calcium. 3. Diltiazem. 4. Omeprazole. 5. ProAir. 6. Synthroid. 7. Spironolactone 25 mg daily. 8. Ursodiol 250 mg, 2 tablets b.i.d. 9. Xifaxan 550 mg b.i.d. 10. The patient is also getting warfarin as an outpatient. PHYSICAL EXAMINATION: VITAL SIGNS: Blood pressure is 130/76, pulse of 83, respiratory rate 16, temperature 99.4. GENERAL: She is an elderly female who appears to be older than stated age. She is chronically ill-appearing, but appears to be no acute GI distress right now. HEENT: Her pupils are equal and reactive to light. No obvious scleral icterus. Oropharynx had dental caries. No tongue deviation or candidal lesions. Hearing was intact. NECK: Supple. No thyromegaly or lymphadenopathy. LUNGS: Clear to auscultation and percussion. HEART: Irregular rhythm. Small murmur is heard. ABDOMEN: Protuberant, but soft. There is just a fluid wave. No organ masses, nontender. No hernias. EXTREMITIES: Had significant edema up to her thighs, 3+. No cyanosis or clubbing. NEUROLOGIC: Her cranial 2-12 are grossly intact. No asterixis. She is alert and oriented x 3. SKIN: Warm and moist. RECTAL: Not performed. GAIT: Not assessed. LABORATORY DATA: Revealed a BUN of 23, creatinine 1.12, SGOT at 37, which is normal. SGPT of 32, which is normal. Total bilirubin at 1.3 is elevated. Alkaline phosphatase at 231 is elevated. Total protein of 6.4, which is normal. Albumin 2.9, which is low. Potassium 3.6, sodium 139. Hemoglobin 11.3, hematocrit 30.3, MCV 87.4, MCV 87.4. Her INR is 2.9, PTT at 35.2. Pro time 28.6. IMPRESSION: 1. 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 She has been maintained on Ursodiol. She is up-to-date on her hepatoma surveillance with an alpha fetoprotein of 2.5 last month and an MRI, as mentioned above, showed cirrhosis with no liver lesions. Unfortunately, we cannot do a MELD lab because she is on Coumadin. 2. Progressive and massive pedal edema. Whether this is related to cirrhosis or the heart is unclear. 3. Possible ascites - This is possible fluid wave. Interestingly, no ascites was seen on a MRI done a month ago. 4. Esophageal varices - She had no varices on upper endoscopy in 03/2017; however, recent MRI did show esophageal varices. 5. Status post aortic valve replacement with a bovine valve. 6. Atrial fibrillation. She is on Coumadin, which has been held. She has a high INR at the time. RECOMMENDATIONS: 1. Ideally, the patient needs ultrasound-guided paracentesis (therapeutic and diagnostic); however, with her elevated INR, this will have to wait. 2. Consider IV diuretics and if she does not respond, please consider adding IV albumin. 3. The patient has been seen by renal in the past (Dr. Peng) and it may be prudent to consult them to watch her fluid balances and renal function and to help manage her diuresis. 4. Dr. Garcia suggests change in her Cardizem to a nonselective beta edd and I believe Dr. Monsalve has done this. 5. Further recommendations depending on how she does. Garrett P. Pasricha, MD SPP/rw/do , 08:28 PM , 08:46 PM MTDHarriet
[2018-10-30] MEDS: Insulin NovoLOG Aspart Correctional Sugar Inj SQ SCH (22:27)
[2018-10-31] MEDS: Furosemide 40 MG Tablet PO SCH (06:15)
--- NOTE | 2018-10-31 09:29 | US ---
EXAM DATE: 10/31/2018 9:18 AM EST AGE/SEX: 78 years / Female INDICATIONS: Abdominal pain. CLINICAL DATA: This is the patient's subsequent encounter. Patient reports that signs and symptoms h ave been present for 1 day and indicates a pain score of 2/10. MEDICAL/SURGICAL HISTORY: Gastroesophageal reflux disease. Hypertension. Hypothyroidism. Ernestina betes. Stroke. Sepsis. Hyperlipidemia. . Back surgery. Aortic valve replacement. Cholecystectomy. COMPARISON: [facility], MR ABDOMEN W/ AND W/O (EOVIST), 08/26/2018. [facility], MR ABDOMEN W/ AND W/O CONTRAS T, 01/12/2018. . MEASUREMENTS: Liver:__ 14.2 cm. Common Bile Duct:___ 6mm. Right Kidney:___10.2 x 5.3 x 4.8 cm. Left Kidney:___11.5 x 4.0 x 3.9 cm. Spleen:___12.5 cm. FINDINGS: Liver: The liver demonstrates heterogeneous echotexture and nodular contour consistent with cirrhosi s. Portal Vein: Hepatopedal flow seen in portal vein. Common Duct: No intraluminal mass or stone visualized. Gallbladder: Surgically absent. Pancreas: The visualized portions are within normal limits Right Kidney: Increased echogenicity. No concerning mass or hydronephrosis. There is a well-circumsc ribed exophytic simple cyst involving the lower pole measuring 1.5 cm in size. Left Kidney: Normal echogenicity and cortical thickness. No concerning mass or hydronephrosis. Exoph ytic simple cyst involving the lower pole measuring 1.3 cm. Ascites: Moderate ascites. Pleural Effusion: None Spleen: The spleen is enlarged measuring 12.5 x 6.4 x 11.7 cm. Aorta: Non aneurysmal. IVC: Within normal limits Other: None. CONCLUSION: 1. Cirrhosis of the liver with splenomegaly. Moderate ascites is noted. No evidence of biliary obstr uction or concerning mass. Bilateral simple renal cysts. Electronically signed by: Velvet Leonard MD Board Certified Radiologist 10/31/2018 9:28 AM [facility] [place]
--- NOTE | 2018-10-31 09:35 | P.PNIM ---
Subjective Interval history: Follow-up for anasarca No abdominal pain, less distended than yesterday, no nausea or vomiting. Still with severe bilateral lower extremity edema but better. Able to ambulate around the [place]. No nausea or vomiting, no chest pain. No bleeding. Physical Exam Vital signs: Last Vital Signs Temp 98.4 F 10/31/18 04:00 Pulse 83 10/31/18 06:00 Resp 18 10/31/18 04:00 BP 133/74 10/31/18 04:00 Pulse Ox 98 10/31/18 04:00 Intake & Output 10/29/18 10/30/18 10/31/18 11/01/18 06:59 06:59 06:59 06:59 Intake Total 240 / 240 Output Total 1750 / 1750 Balance -1510 / -1510 Weight 64.5 kg Narrative: Not in acute distress, appears comfortable Pupils equal round reactive, pink conjunctivae No JVD Regular rate and rhythm, no murmurs Clear breath sounds, no crackles Abdomen soft, mildly distended, positive fluid wave, nontender 3+ lower extremity pitting edema Alert awake and oriented x3, no focal deficits. No asterixis. Results Labs CBC & Chem 7: 10/30/18 18:33 10/30/18 18:33 Imaging Imaging: Impressions Chest X-Ray 10/30/18 00:00 CONCLUSION: 1. Subtle airspace disease in the left lower lung zone, presumably atelectasis. Assessment and Plan Plan History of Present Illness: patient is a 78 y/o female with history of Cirrhosis , hypertension, a/p aortic valve replacement, was sent to the hospital by her real estate economist because of worsening pedal edema and abdominal distention. she says that for the past ten days she noticed that her legs were progressively getting swollen and her abdominal distention has also been getting worse. Primary biliary cirrhosis with anasarca-family biliary cirrhosis for 20 years, has previous varices, was on ursodeoxycholic acid, undergoing about, surveillance with last AFP of 2.5 in September. Cirrhosis with no liver lesions. Meld score cannot be done because of Coumadin. Gastroenterology has been consulted, could be cardiac, AST ALT within normal limits. -We will need paracentesis, Coumadin on hold, hold aspirin today, paracentesis once INR is less than 1.5. Continue diuretics intravenously, if no response, add IV albumin. Cardiology input pending, abdominal ultrasound showed moderate ascites and splenomegaly. Chronic kidney disease-creatinine stable, baseline around 1.2, follows up with Dr. Peng. Consult nephrology to maintain fluid balance with diuresis. Esophageal varices-no varices on endoscopy done in March 2017 but recent MRI results showed varices. s/p bovine aortic valve replacement-on Coumadin, on nadolol, Coumadin on hold because of supratherapeutic INR. Cardiology consulted Thrombocytopenia-likely secondary to portal hypertension, monitor. Recheck CBC. Coagulopathy-Coumadin on hold. INR is 2.9 today. Check INR daily Hypertension- cont Nadolol diabetes mellitus type II, uncontrolled-continue sliding scale insulin based on Accu-Cheks. Hypothyroidism; resume Levothyroxine when dose has bee verified. DVT prophylaxis: on Coumadin GI prophylaxis: Protonix, patient has history of varices. Progress Note: Quality VTE Deep Vein Thrombosis/Pulmonary Embolism Present on Admission: No
[2018-10-31] MEDS: Insulin NovoLOG Aspart Correctional Sugar Inj SQ SCH ×4 (09:39→20:19)
[2018-10-31] MEDS: Nadolol 20 MG Tablet PO SCH (09:58)
[2018-10-31] MEDS: Spironolactone 25 MG Tablet PO SCH (12:18)
--- NOTE | 2018-10-31 12:52 | MB ---
cc: Nichole Sherman MD DATE: 10/31/2018 REASON FOR CONSULTATION: Chronic kidney disease with edema and diuretic management. HISTORY OF PRESENT ILLNESS: This is a 78-year-old old female with past medical history of hypertension, history of aortic valve replacement, cirrhosis of the liver, chronic kidney disease with history of acute kidney injury in the past, hyperlipidemia, and hypothyroidism. She was admitted mainly because of abdominal distention and increased swelling of her legs. The patient has history of chronic kidney disease. She had acute kidney injury in the past and was on hemodialysis for more than 6 weeks. She has been following with Dr. Peng and, according to the patient, she has an appointment next month to follow up with him. About 2 months ago, her diuretics were stopped by her primary physician. The patient has chronic kidney disease and her creatinine has been in the range of 1.1 to 1.3 most of the time. She did notice that she has worsening swelling of the legs since she was started on dialysis and has some abdominal distention. Denies any shortness of breath. There is no nausea or vomiting. No dysuria or hematuria. There is no history of diarrhea. PAST MEDICAL HISTORY: 1. Hypertension. 2. Diabetes mellitus. 3. History of aortic valve replacement. 4. Gastroesophageal reflux disease. 5. Hypothyroidism. 6. Chronic kidney disease. PAST SURGICAL HISTORY: 1. History of aortic valve replacement. 2. Back surgery. REVIEW OF SYSTEMS: Denies any headache, dizziness or blurring of vision. There is no history of fever. She has no nausea or vomiting. Has some abdominal distention. No chest pain, no shortness of breath. Increased swelling of her legs. There is no dysuria or hematuria. Not taking any nonsteroidal anti-inflammatory drugs. SOCIAL HISTORY: The patient is . There is no history of smoking or alcoholism. FAMILY HISTORY: Noncontributory. ALLERGIES: She is allergic to: 1. ENOXAPARIN. 2. HEPARIN. 3. NITROFURANTOIN. MEDICATIONS: Currently, she is on the following medications: 1. Tylenol No. 3 as needed. 2. Aspirin 325 mg once a day. 3. Furosemide 40 mg p.o. daily every 12 hours. 4. Labetalol 20 mg daily. 5. Insulin as per sliding scale. 6. Restoril 15 mg at bedtime. PHYSICAL EXAMINATION: GENERAL: She is awake, alert. She is not in acute distress. VITAL SIGNS: Blood pressure is 141/92, blood pressure has been stable. Temperature is 98.2, pulse is 92, oxygen saturation on room air is 98%. HEENT: Pupils appear mid constricted. Nonicteric sclerae. Conjunctivae pale. NECK: Supple. JVD is not elevated. LUNGS: The patient has bilateral good air entry with occasional wheezing. HEART: S1, S2. Regular rate and rhythm. ABDOMEN: Soft, flat, slight distention. There is no tenderness. Bowel sounds positive. EXTREMITIES: She has bilateral 2+ edema. INVESTIGATIONS: WBC count is 4.0, hemoglobin 11.3, platelet count of 99, neutrophils 69.3%. INR is 2.9. Sodium 139, potassium 3.6, chloride 104, bicarbonate 28, BUN 23, creatinine 1.12, glucose 124, calcium is 8.4, total bilirubin is 1.3, AST is 37, ALT is 32, albumin 2.9. Urinalysis showing protein negative. IMAGING STUDIES: The patient had abdominal ultrasound done, which shows both kidneys are normal in size, liver has cirrhosis, and splenomegaly, moderate ascites. Both kidneys have increased echogenicity. There is a simple cyst in the lower pole of the right kidney. ASSESSMENT AND PLAN: 1. Fluid overload status. 2. Hypoalbuminemia. 3. Cirrhosis of the liver. 4. Hypertension. 5. Diabetes mellitus. 6. Hypothyroidism. 7. History of aortic valve replacement. The patient has increasing edema of the legs. Her creatinine is close to her baseline. I discussed with the patient about restricting the salt and the fluid intake, and I will change her Lasix to IV, and I will give her a small dose of spironolactone for abdominal ascites. Will follow the urine output and the BUN and creatinine. Thank you for the consultation. I will follow the patient over the weekend. MD FRANCIE Perez/raquel , 11:18 AM , 11:29 AM
--- NOTE | 2018-10-31 16:09 | P.PNGI ---
Subjective Interval history: Overall patient feels better. She has much less abdominal distention. Her pedal edema has improved. She feels she can breathe better. She denies any nausea, vomiting, diarrhea or overt GI bleed Physical Exam Vital signs: Vital Signs 10/30/18 17:40 10/30/18 18:51 10/30/18 19:00 Temperature 98.6 F 99.4 F Pulse Rate 78 83 111 H Respiratory Rate 16 16 Blood Pressure 129/72 130/76 Pulse Oximetry 99 99 10/30/18 20:00 10/30/18 21:00 10/30/18 22:00 Temperature 98.2 F Pulse Rate 82 74 76 Respiratory Rate 18 Blood Pressure 122/71 Pulse Oximetry 98 10/30/18 23:00 10/30/18 23:55 10/31/18 00:00 Temperature 98.2 F Pulse Rate 96 H 68 85 Respiratory Rate 20 Blood Pressure 139/79 Pulse Oximetry 97 10/31/18 01:00 10/31/18 02:00 10/31/18 03:00 Temperature Pulse Rate 88 75 74 Respiratory Rate Blood Pressure Pulse Oximetry 10/31/18 04:00 10/31/18 05:00 10/31/18 06:00 Temperature 98.4 F Pulse Rate 79 78 83 Respiratory Rate 18 Blood Pressure 133/74 Pulse Oximetry 98 10/31/18 07:00 10/31/18 08:00 10/31/18 09:00 Temperature 98.2 F Pulse Rate 82 105 H 106 H Respiratory Rate 16 Blood Pressure 141/92 H Pulse Oximetry 98 10/31/18 10:00 10/31/18 11:00 10/31/18 12:00 Temperature 98.1 F Pulse Rate 134 H 92 H 96 H Respiratory Rate 16 Blood Pressure 123/68 Pulse Oximetry 100 10/31/18 13:00 10/31/18 13:54 Temperature Pulse Rate 80 87 Respiratory Rate Blood Pressure Pulse Oximetry Intake & Output 10/30/18 10/31/18 10/31/18 18:59 06:59 18:59 Intake Total 240 / 240 Output Total 1750 / 1750 Balance -1510 / -1510 Weight 64.5 kg Intake: Oral 240 / 240 Output: Urine 1750 / 1750 Other: Date of Last Bowel Movement 10/31/18 - Constitutional no acute distress - Routine HEENT Exam Head: Present: atraumatic - Routine Neck Exam Present: supple - Routine Abdominal Exam Present: normoactive bowel sounds. Absent: tenderness, distended Comments: Abdomen is much softer today. Today also I could not field a fluid wave - Routine Extremities Exam Present: edema. Absent: cyanosis - Routine Skin Exam Absent: cyanosis - Routine Neurological Exam Present: alert, oriented X3 Results - Labs CBC & Chem 7: 11/01/18 05:31 11/01/18 05:31 Laboratory Results - last 24 hr 10/30/18 10/30/18 10/30/18 18:33 18:33 18:33 WBC 4.0 RBC 3.92 L Hgb 11.3 L Hct 34.3 L MCV 87.4 MCH 28.8 MCHC 33.0 RDW 14.6 Plt Count 99 L MPV 7.4 Prelim Diff (Auto) Slide review pending Neut % (Auto) 69.3 Lymph % (Auto) 19.2 [place] % (Auto) 9.1 H Eos % (Auto) 1.3 Baso % (Auto) 1.1 Neut # (Auto) 2.8 Lymph # (Auto) 0.8 L [place] # (Auto) 0.4 Eos # (Auto) 0.1 Baso # (Auto) 0.0 WBC Differential . Diff Scan Auto diff confirmed Differential Comment . Platelet Estimate Low L Platelet Morphology Normal Ovalocytes 1+ H PT 29.6 H INR 2.9 APTT 35.2 H Sodium 139 Potassium 3.6 Chloride 104 Carbon Dioxide 28.0 Anion Gap 7 BUN 23 H Creatinine 1.12 H Estimated GFR 47 L POC Glucose Random Glucose 345 H Calcium 8.4 L Total Bilirubin 1.3 H AST 37 ALT 32 Alkaline Phosphatase 231 H Total Protein 6.4 Albumin 2.9 L Urine Color Urine Clarity Urine pH Ur Specific [place] Urine Protein Urine Glucose (UA) Urine Ketones Urine Occult Blood Urine Nitrate Urine Bilirubin Urine Urobilinogen Ur Leukocyte Esterase Urine WBC Ur Squamous Epith Cells Urine Bacteria Ur Microscopic Review 10/30/18 10/30/18 10/31/18 21:21 21:43 08:04 WBC RBC Hgb Hct MCV MCH MCHC RDW Plt Count MPV Prelim Diff (Auto) Neut % (Auto) Lymph % (Auto) [place] % (Auto) Eos % (Auto) Baso % (Auto) Neut # (Auto) Lymph # (Auto) [place] # (Auto) Eos # (Auto) Baso # (Auto) WBC Differential Diff Scan Differential Comment Platelet Estimate Platelet Morphology Ovalocytes PT INR APTT Sodium Potassium Chloride Carbon Dioxide Anion Gap BUN Creatinine Estimated GFR POC Glucose 386 H 124 H Random Glucose Calcium Total Bilirubin AST ALT Alkaline Phosphatase Total Protein Albumin Urine Color Yellow Urine Clarity Clear Urine pH 7.0 Ur Specific [place] 1.009 Urine Protein Negative Urine Glucose (UA) 500 or greater Urine Ketones Negative Urine Occult Blood Negative Urine Nitrate Negative Urine Bilirubin Negative Urine Urobilinogen Less than 2 Ur Leukocyte Esterase Negative Urine WBC 9 H Ur Squamous Epith Cells <1 Urine Bacteria Rare H Ur Microscopic Review Not Reportable 10/31/18 12:01 WBC RBC Hgb Hct MCV MCH MCHC RDW Plt Count MPV Prelim Diff (Auto) Neut % (Auto) Lymph % (Auto) [place] % (Auto) Eos % (Auto) Baso % (Auto) Neut # (Auto) Lymph # (Auto) [place] # (Auto) Eos # (Auto) Baso # (Auto) WBC Differential Diff Scan Differential Comment Platelet Estimate Platelet Morphology Ovalocytes PT INR APTT Sodium Potassium Chloride Carbon Dioxide Anion Gap BUN Creatinine Estimated GFR POC Glucose 332 H Random Glucose Calcium Total Bilirubin AST ALT Alkaline Phosphatase Total Protein Albumin Urine Color Urine Clarity Urine pH Ur Specific [place] Urine Protein Urine Glucose (UA) Urine Ketones Urine Occult Blood Urine Nitrate Urine Bilirubin Urine Urobilinogen Ur Leukocyte Esterase Urine WBC Ur Squamous Epith Cells Urine Bacteria Ur Microscopic Review - Imaging Impressions Chest X-Ray 10/30/18 00:00 CONCLUSION: 1. Subtle airspace disease in the left lower lung zone, presumably atelectasis. Abdomen Ultrasound 10/31/18 00:00 CONCLUSION: 1. Cirrhosis of the liver with splenomegaly. Moderate ascites is noted. No evidence of biliary obstruction or concerning mass. Bilateral simple renal cysts. Assessment and Plan - Attending Attestation Impression: 1. 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 2. Progressive and massive pedal edema. Better this morning 3. Possible ascitesthis afternoon I did not feel a fluid wave. She has less abdominal distention also 4. Esophageal varices - She had no varices on upper endoscopy in 03/2017; however, recent MRI did show esophageal varices. 5. Status post aortic valve replacement with a bovine valve. 6. Atrial fibrillation. On Coumadin which is on hold RECOMMENDATIONS: 1. Ideally, the patient needs ultrasound-guided paracentesis (therapeutic and diagnostic) when her INR is better however on exam today I did not feel a fluid wave (in other words her ascites may be too minimal to tap) 2. Continue nephrology suggestions regarding diuretics 4. Continue nonselective beta-edd for her varices 5. Follow-up pro time INR 6. Further recommendations depending on how she does.
[2018-10-31 19:14] LABS: INR 2.4 Ratio
[2018-11-01 07:37] LABS: Baso # (Auto) 0.1 th/mm3 (0.0-0.2); Baso % (Auto) 1.2 % (0.0-2.0); Eos # (Auto) 0.1 th/mm3 (0.0-0.4); Eos % (Auto) 2.7 % (0.0-4.0); Hematocrit 34.4 % (35.0-46.0); Hemoglobin 11.7 gm/dL (11.6-15.3); Lymph # (Auto) 1.5 th/mm3 (1.0-4.8); Lymph % (Auto) 31.8 % (9.0-44.0); Mean Corpuscular HGB Conc 33.9 % (32.0-36.0); Mean Corpuscular Hemoglobin 29.5 pg (27.0-34.0); Mean Corpuscular Volume 86.8 fL (80.0-100.0); Mean Platelet Volume 7.9 fL (7.0-11.0); Mono # (Auto) 0.4 th/mm3 (0.0-0.9); Mono % (Auto) 7.7 % (0.0-8.0); Neut # (Auto) 2.7 th/mm3 (1.8-7.7); Neut % (Auto) 56.6 % (16.0-70.0); Platelet Count 110 th/mm3 (150-450); Red Blood Count 3.96 mil/mm3 (4.00-5.30); Red Cell Distribution Width 14.4 % (11.6-17.2); White Blood Count 4.8 th/mm3 (4.0-11.0)
[2018-11-01 07:42] LABS: INR 2.1 Ratio; Prothrombin Time 21.1 sec (9.8-11.6)
[2018-11-01 08:03] LABS: Calcium 8.7 mg/dL (8.5-10.1); Carbon Dioxide 32.9 meq/L (21.0-32.0); Potassium 3.3 meq/L (3.5-5.1)
[2018-11-01] MEDS: Nadolol 20 MG Tablet PO SCH (10:15)
[2018-11-01] MEDS: Spironolactone 25 MG Tablet PO SCH (10:15)
[2018-11-01] MEDS: Insulin NovoLOG Aspart Correctional Sugar Inj SQ SCH ×3 (10:15→17:07)
--- NOTE | 2018-11-01 10:43 | P.PNNP ---
Subjective Interval history: Patient is alert, feeling better, no SOB, the edema is improving. Physical Exam Vital signs: Vital Signs 10/31/18 11:00 10/31/18 12:00 10/31/18 13:00 Temperature 98.1 F Pulse Rate 92 H 96 H 80 Respiratory Rate 16 Blood Pressure 123/68 Pulse Oximetry 100 10/31/18 13:54 10/31/18 15:00 10/31/18 16:00 Temperature 97.9 F Pulse Rate 87 83 89 Respiratory Rate 17 Blood Pressure 115/73 Pulse Oximetry 97 10/31/18 17:00 10/31/18 18:00 10/31/18 19:00 Temperature Pulse Rate 86 85 98 H Respiratory Rate Blood Pressure Pulse Oximetry 10/31/18 20:00 10/31/18 21:00 10/31/18 22:00 Temperature 98.0 F Pulse Rate 108 H 84 84 Respiratory Rate 16 Blood Pressure 140/83 Pulse Oximetry 100 10/31/18 23:00 11/01/18 00:00 11/01/18 01:00 Temperature 98.1 F Pulse Rate 78 90 73 Respiratory Rate 14 Blood Pressure 95/52 L Pulse Oximetry 98 11/01/18 02:00 11/01/18 03:00 11/01/18 04:00 Temperature 97.5 F L Pulse Rate 77 77 80 Respiratory Rate 14 Blood Pressure 113/68 Pulse Oximetry 98 11/01/18 05:00 11/01/18 06:00 Temperature Pulse Rate 76 80 Respiratory Rate Blood Pressure Pulse Oximetry Intake & Output 10/31/18 11/01/18 11/01/18 18:59 06:59 18:59 Intake Total 900 / 900 480 / 480 Output Total 1400 / 1400 1300 / 1300 Balance -500 / -500 -820 / -820 Weight 64.4 kg Intake: Oral 900 / 900 480 / 480 Output: Urine 1400 / 1400 1300 / 1300 Other: Date of Last Bowel Movement 10/31/18 10/31/18 # Bowel Movements 1 Narrative: Not in acute distress, appears comfortable Pupils equal round reactive, pink conjunctivae No JVD Regular rate and rhythm, no murmurs Clear breath sounds, no crackles Abdomen soft, mildly distended, positive fluid wave, nontender 3+ lower extremity pitting edema Alert awake and oriented x3, no focal deficits. No asterixis. Assessment and Plan - Assessment (1) Edema Code(s): R60.9 - Edema, unspecified Status: Acute (2) Hypertension Code(s): I10 - Essential (primary) hypertension Status: Chronic (3) Hyperlipemia Code(s): E78.5 - Hyperlipidemia, unspecified Status: Chronic (4) GERD (gastroesophageal reflux disease) Code(s): K21.9 - Gastro-esophageal reflux disease without esophagitis Status: Chronic (5) Hypothyroid Code(s): E03.9 - Hypothyroidism, unspecified Status: Chronic - Plan Patient with history of NATALIA. Has edema in legs and ascites. Has no proteinuria, and started on IV Lasix and Aldactone. Creatinine now normal, K is normal. Continue diuretics, to follow with Dr. Peng tomorrow.
[2018-11-01] MEDS ORDERED: Potassium Chloride 25 MEQ Effervescent Tablet PO ONE (11:00)
--- NOTE | 2018-11-01 11:02 | P.PNIM ---
Subjective Interval history: Follow-up for lower extremity edema Edema improving, -1.3 L, abdomen softer, no pain, no nausea or vomiting, positive for dysuria and frequency. Physical Exam Vital signs: Last Vital Signs Temp 97.5 F L 11/01/18 04:00 Pulse 80 11/01/18 06:00 Resp 14 11/01/18 04:00 BP 113/68 11/01/18 04:00 Pulse Ox 98 11/01/18 04:00 Intake & Output 10/30/18 10/31/18 11/01/18 11/02/18 06:59 06:59 06:59 06:59 Intake Total 240 / 240 1380 / 1380 Output Total 1750 / 1750 2700 / 2700 Balance -1510 / -1510 -1320 / -1320 Weight 64.5 kg 64.4 kg Narrative: Not in acute distress Regular rate and rhythm, no murmurs Clear breath sounds, no crackles Abdomen soft, mildly distended, now negative fluid wave, nontender 2+ lower extremity pitting edema, better Alert awake and oriented x3, no focal deficits. No asterixis. Results Labs CBC & Chem 7: 11/01/18 05:31 11/01/18 05:31 Assessment and Plan (1) Edema: Code(s): R60.9 - Edema, unspecified Status: Acute (2) Hypertension: Code(s): I10 - Essential (primary) hypertension Status: Chronic (3) Hyperlipemia: Code(s): E78.5 - Hyperlipidemia, unspecified Status: Chronic (4) GERD (gastroesophageal reflux disease): Code(s): K21.9 - Gastro-esophageal reflux disease without esophagitis Status: Chronic (5) Hypothyroid: Code(s): E03.9 - Hypothyroidism, unspecified Status: Chronic Plan History of Present Illness: patient is a 78 y/o female with history of Cirrhosis , hypertension, a/p aortic valve replacement, was sent to the hospital by her emergency medicine nurse practitioner because of worsening pedal edema and abdominal distention. She says that for the past ten days she noticed that her legs were progressively getting swollen and her abdominal distention has also been getting worse. She has primary biliary cirrhosis for 20 years, has previous varices, was on ursodeoxycholic acid, undergoing about, surveillance with last AFP of 2.5 in September. Cirrhosis with no liver lesions. Meld score cannot be done because of Coumadin. Primary biliary cirrhosis with anasarca- Gastroenterology following, could be cardiac, AST ALT within normal limits. Coumadin on hold for paracentesis but ascites seems to be improving, patient would like to hold off. Aspirin on hold , INR 2.1. Continue diuretics with Lasix and Aldactone intravenously, nephrology managing, if no response, add IV albumin. Cardiology input pending, abdominal ultrasound showed moderate ascites and splenomegaly. Chronic kidney disease-creatinine stable, baseline around 1.2, follows up with Dr. Peng. Nephrology following, continue diuresis with Lasix and Aldactone. Dysuria-check urinalysis Diarrhea-previously on antibiotics as outpatient, check C. difficile assay. Esophageal varices-no varices on endoscopy done in March 2017 but recent MRI results showed varices. Continue nadolol. s/p bovine aortic valve replacement-on Coumadin, on nadolol, Coumadin on hold because of supratherapeutic INR, 2.1 today. Cardiology consulted Thrombocytopenia-likely secondary to portal hypertension, monitor. Stable Coagulopathy-Coumadin on hold. INR is 2.1 today. Check INR daily Hypertension- cont Nadolol diabetes mellitus type II, uncontrolled-continue sliding scale insulin based on Accu-Cheks. Hemoglobin A1c 7.7 Hypothyroidism-resume Levothyroxine when dose has bee verified. Hypokalemia-replace, recheck BMP tomorrow DVT prophylaxis: on Coumadin GI prophylaxis: Protonix, patient has history of varices. Progress Note: Quality VTE Deep Vein Thrombosis/Pulmonary Embolism Present on Admission: No _ (1) Edema Qualifiers: Edema type: Malnutrition edema type: Trimester: (2) Hyperlipemia Qualifiers: Hyperlipidemia type: (3) Hypothyroid Qualifiers: Hypothyroidism type: (4) GERD (gastroesophageal reflux disease) Qualifiers: Esophagitis presence: (5) Hypertension Qualifiers: Hypertension type:
--- NOTE | 2018-11-01 12:39 | P.PNGI ---
Subjective Interval history: Overall less abdominal pain, abdominal distention and her pedal edema is improved. She would like to hold off on the paracentesis. Complaint of loose stools this afternoon. She has been on antibiotics as an output Physical Exam Vital signs: Vital Signs 10/31/18 13:00 10/31/18 13:54 10/31/18 15:00 Temperature Pulse Rate 80 87 83 Respiratory Rate Blood Pressure Pulse Oximetry 10/31/18 16:00 10/31/18 17:00 10/31/18 18:00 Temperature 97.9 F Pulse Rate 89 86 85 Respiratory Rate 17 Blood Pressure 115/73 Pulse Oximetry 97 10/31/18 19:00 10/31/18 20:00 10/31/18 21:00 Temperature 98.0 F Pulse Rate 98 H 108 H 84 Respiratory Rate 16 Blood Pressure 140/83 Pulse Oximetry 100 10/31/18 22:00 10/31/18 23:00 11/01/18 00:00 Temperature 98.1 F Pulse Rate 84 78 90 Respiratory Rate 14 Blood Pressure 95/52 L Pulse Oximetry 98 11/01/18 01:00 11/01/18 02:00 11/01/18 03:00 Temperature Pulse Rate 73 77 77 Respiratory Rate Blood Pressure Pulse Oximetry 11/01/18 04:00 11/01/18 05:00 11/01/18 06:00 Temperature 97.5 F L Pulse Rate 80 76 80 Respiratory Rate 14 Blood Pressure 113/68 Pulse Oximetry 98 Intake & Output 10/31/18 11/01/18 11/01/18 18:59 06:59 18:59 Intake Total 900 / 900 480 / 480 Output Total 1400 / 1400 1300 / 1300 Balance -500 / -500 -820 / -820 Weight 64.4 kg Intake: Oral 900 / 900 480 / 480 Output: Urine 1400 / 1400 1300 / 1300 Other: Date of Last Bowel Movement 10/31/18 10/31/18 # Bowel Movements 1 - Constitutional no acute distress - Routine Neck Exam Present: supple - Routine Abdominal Exam Present: soft, normoactive bowel sounds. Absent: tenderness Comments: No ascites felt today - Routine Extremities Exam Present: edema. Absent: cyanosis Comments: Her edema is better - Routine Skin Exam Absent: cyanosis - Routine Neurological Exam Present: alert, oriented X3 Results - Labs CBC & Chem 7: 11/01/18 05:31 11/01/18 05:31 Laboratory Results - last 24 hr 10/31/18 10/31/18 10/31/18 17:36 18:50 20:10 WBC RBC Hgb Hct MCV MCH MCHC RDW Plt Count MPV Neut % (Auto) Lymph % (Auto) [place] % (Auto) Eos % (Auto) Baso % (Auto) Neut # (Auto) Lymph # (Auto) [place] # (Auto) Eos # (Auto) Baso # (Auto) WBC Differential Differential Comment PT 24.0 H INR 2.4 Sodium Potassium Chloride Carbon Dioxide Anion Gap BUN Creatinine Estimated GFR POC Glucose 276 H 257 H Random Glucose Calcium 11/01/18 11/01/18 11/01/18 05:31 05:31 05:31 WBC 4.8 RBC 3.96 L Hgb 11.7 Hct 34.4 L MCV 86.8 MCH 29.5 MCHC 33.9 RDW 14.4 Plt Count 110 L MPV 7.9 Neut % (Auto) 56.6 Lymph % (Auto) 31.8 [place] % (Auto) 7.7 Eos % (Auto) 2.7 Baso % (Auto) 1.2 Neut # (Auto) 2.7 Lymph # (Auto) 1.5 [place] # (Auto) 0.4 Eos # (Auto) 0.1 Baso # (Auto) 0.1 WBC Differential . Differential Comment Auto diff final PT 21.1 H INR 2.1 Sodium 142 Potassium 3.3 L Chloride 104 Carbon Dioxide 32.9 H Anion Gap 5 BUN 21 H Creatinine 0.89 Estimated GFR 62 L POC Glucose Random Glucose 110 H D Calcium 8.7 11/01/18 11/01/18 08:39 11:41 WBC RBC Hgb Hct MCV MCH MCHC RDW Plt Count MPV Neut % (Auto) Lymph % (Auto) [place] % (Auto) Eos % (Auto) Baso % (Auto) Neut # (Auto) Lymph # (Auto) [place] # (Auto) Eos # (Auto) Baso # (Auto) WBC Differential Differential Comment PT INR Sodium Potassium Chloride Carbon Dioxide Anion Gap BUN Creatinine Estimated GFR POC Glucose 119 H 215 H Random Glucose Calcium Assessment and Plan - Attending Attestation Impression- 1. 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 2. pedal edema. Improved with diuretics 3. Possible ascitesnone felt on today's exam 4. Esophageal varices - She had no varices on upper endoscopy in 03/2017; however, recent MRI did show esophageal varices. 5. Status post aortic valve replacement with a bovine valve. 6. Atrial fibrillation. On Coumadin which is on hold 7. Loose stoolsrule out Clostridium difficile since she has been on antibiotics as an output RECOMMENDATIONS: 1. Patient would like to hold off on the paracentesis. Clinically she has improved and I could not feel any ascites today. Therefore we will hold off on paracentesis 2. Continue nephrology suggestions regarding diuretic 4. Continue nonselective beta-edd for her varices 5. Check stool for C. difficile 6. Further recommendations depending on how she does.
[2018-11-02] MEDS: Insulin NovoLOG Aspart Correctional Sugar Inj SQ SCH ×5 (04:53→21:23)
[2018-11-02 07:53] LABS: INR 1.5 Ratio; Prothrombin Time 15.3 sec (9.8-11.6)
[2018-11-02 08:02] LABS: Calcium 8.8 mg/dL (8.5-10.1); Carbon Dioxide 30.4 meq/L (21.0-32.0); Potassium 3.1 meq/L (3.5-5.1)
[2018-11-02] MEDS: Nadolol 20 MG Tablet PO SCH (09:37)
[2018-11-02] MEDS: Spironolactone 25 MG Tablet PO SCH (09:37)
[2018-11-02] MEDS: dilTIAZem CD 120 MG Capsule PO SCH (12:51)
--- NOTE | 2018-11-02 13:16 | P.CONCA ---
History of Present Illness Service: Cardiology Consult date: 11/02/18 Primary Care Provider: UNKNOWN Chief Complaint: abdominal distention History of Present Illness: Pleasant 78-year-old female well-known to our practice with a significant past cardiac history of aortic stenosis status post bovine aortic valve replacement, CVA, atrial fibrillation anticoagulated with warfarin, history of heparin- induced thrombocytopenia, endocarditis March 2017, diabetes, hyperlipidemia, renal insufficiency, and primary biliary cirrhosis. Patient was seen in our office on October 30 where she was noted to have anasarca, ascites that was not responding to oral diuresis. She was directly admitted to the hospital for further management. Today patient reports feeling much better, ascites and edema has improved with IV diuresis. She denies any chest pain or shortness of breath. Review of Systems All other systems reviewed negative except as stated in HPI [facility] - History History Provided By: Patient - Medical History Medical History: Medical History (Last Updated 11/02/18 @ 12:07 by Jillian Rangel) History of Clostridium difficile infection Onset Date: ~11/01/18 Diabetes GERD (gastroesophageal reflux disease) HTN (hypertension) Hx of sepsis Hyperlipidemia Hypothyroid - Surgical History Surgical History: Surgical History (Last Reviewed 10/30/18 @ 18:29 by Dori Matute RN) History of back surgery Hx of aortic valve replacement - Tobacco History Second Hand Smoke Exposure: No Smoking Status: Never smoker - Alcohol History How Often Do You Have a Drink Containing Alcohol: Never - Substance Use History Substance History: No History of Abuse - Immunization History Tetanus Immunization: Unsure Hx Influenza Vaccine This Season: Yes Medications and Allergies Allergies Allergy/AdvReac Type Severity Reaction Status Date / Time enoxaparin Allergy Severe thrombocyto Verified 09/11/18 17:08 penia heparin (porcine) Allergy Severe thrombocyto Verified 09/11/18 17:08 penia nitrofurantoin Allergy Severe itching Verified 09/11/18 17:08 adhesive Allergy Intermediate REDNESS, Verified 09/11/18 17:08 ITCHING ampicillin Allergy Mild Rash Verified 09/11/18 17:08 diatrizoate meglumine Allergy Mild Hives Verified 09/11/18 17:08 gadobenic acid Allergy Mild Hives Verified 09/11/18 17:08 gadodiamide Allergy Mild Hives Verified 09/11/18 17:08 gadoteridol Allergy Mild Hives Verified 09/11/18 17:08 iodine Allergy Mild Hives Verified 09/11/18 17:08 iodixanol Allergy Mild Hives Verified 09/11/18 17:08 iohexol Allergy Mild Hives Verified 09/11/18 17:08 levofloxacin Allergy Mild Rash Verified 09/11/18 17:08 potassium iodide Allergy Mild Hives Verified 09/11/18 17:08 povidone-iodine Allergy Mild Hives Verified 09/11/18 17:08 sodium iodide Allergy Mild Hives Verified 09/11/18 17:08 Sulfa (Sulfonamide Allergy Mild Hives Verified 09/11/18 17:08 Antibiotics) *MDRO Multi-Drug Resistant AdvReac Unknown Hives Uncoded 08/12/18 23:34 Organism Home Medications Medication Instructions Recorded Confirmed Type Novolog Flexpen U-100 Insulin 1 unit SUBCUT DIRECTED 08/12/18 10/30/18 History albuterol sulfate [ProAir HFA] 2 puff INHALATION Q4-6H PRN 08/12/18 10/30/18 History cholecalciferol (vitamin D3) 1,000 unit PO DAILY 08/12/18 10/30/18 History [Vitamin D3] diltiazem HCl [Cardizem] 120 mg PO BID 08/12/18 10/30/18 History levothyroxine [Synthroid] 88 mcg PO DAILY 08/12/18 10/30/18 History mometasone 1 applic TOPICAL DAILY PRN 08/12/18 10/30/18 History [id number] gluconat 15 ml PO DAILY 08/12/18 10/30/18 History [Multi-Leticia] omeprazole 20 mg PO DAILY 08/12/18 10/30/18 History pyridoxine (vitamin B6) [Vitamin 100 mg PO DAILY 08/12/18 10/30/18 History B-6] warfarin 2.5 mg PO DAILY 08/12/18 10/30/18 History [id number] 1,000 mg PO DAILY 09/11/18 10/30/18 History ursodiol 500 mg PO BID 09/11/18 10/30/18 History warfarin See Label Instructions .ROUTE 09/11/18 10/30/18 History .COMPLEX bumetanide 1 mg PO DAILY 10/30/18 10/30/18 History rifaximin [Xifaxan] 550 mg PO BID 10/30/18 10/30/18 History Active Medications: Active Medications Acetaminophen (Tylenol) 650 mg PO Q4H PRN PRN Reason: PAIN 1-3 Acetaminophen/Codeine Phosphate (Tylenol W/Cod #3) 2 tab PO Q4H PRN PRN Reason: PAIN 4-5 Al Hydroxide/Mg Hydroxide (Milk Of Magnesia Liq) 30 ml PO Q2H PRN PRN Reason: Mild Constipation Aspirin (Ecotrin) 325 mg PO DAILY [facility] Last Admin: 10/31/18 09:40 Dose: Not Given Dextrose (D50w Vial) 50 ml IV.PUSH UNSCH PRN PRN Reason: PER HYPOGLYCEMIA PROTOCOL Diltiazem HCl (Cardizem Cd 24hr) 120 mg PO DAILY [facility] Last Admin: 11/02/18 12:51 Dose: 120 mg Furosemide (Lasix Inj) 20 mg IV.PUSH BID@0900,1800 [facility] Last Admin: 11/02/18 09:39 Dose: 20 mg Glucagon (Glucagon Inj) 1 mg OTHER PRN PRN PRN Reason: for Hypoglycemia Protocol Insulin Aspart (Novolog Insulin Correctional Sugar Inj) 0 unit SQ ACHS [facility]; Protocol Last Admin: 11/02/18 12:53 Dose: 5 unit Nadolol (Corgard) 20 mg PO DAILY [facility] Last Admin: 11/02/18 09:37 Dose: 20 mg Pantoprazole Sodium (Protonix) 40 mg PO DAILY [facility] Last Admin: 11/02/18 09:37 Dose: 40 mg Potassium Chloride (K-Dur) 20 meq PO DAILY [facility] Spironolactone (Aldactone) 25 mg PO DAILY [facility] Last Admin: 11/02/18 09:37 Dose: 25 mg Temazepam (Restoril) 15 mg PO HS PRN PRN Reason: INSOMNIA Vancomycin HCl (Vancomycin Po) 125 mg PO QID [facility] Last Admin: 11/02/18 12:51 Dose: 125 mg Warfarin Sodium (Coumadin) 5 mg PO ONCE ONE Stop: 11/02/18 16:01 Warfarin Sodium (Coumadin) 2.5 mg PO DAILY@1600 [facility] Exam Vital signs: Vital Signs 11/01/18 14:00 11/01/18 15:00 11/01/18 16:00 Temperature 98.0 F Pulse Rate 86 89 116 H Respiratory Rate 18 Blood Pressure 114/82 Pulse Oximetry 98 11/01/18 17:00 11/01/18 18:00 11/01/18 19:00 Temperature Pulse Rate 94 H 108 H 97 H Respiratory Rate Blood Pressure Pulse Oximetry 11/01/18 20:00 11/01/18 21:00 11/01/18 22:00 Temperature 98.0 F Pulse Rate 104 H 118 H 92 H Respiratory Rate 16 Blood Pressure 108/56 L Pulse Oximetry 100 11/01/18 23:00 11/02/18 00:00 11/02/18 01:00 Temperature 98.5 F Pulse Rate 86 86 82 Respiratory Rate 18 Blood Pressure 101/55 L Pulse Oximetry 96 11/02/18 02:00 11/02/18 03:00 11/02/18 04:00 Temperature 98.0 F Pulse Rate 75 96 H 82 Respiratory Rate 16 Blood Pressure 116/82 Pulse Oximetry 98 11/02/18 05:00 11/02/18 06:00 11/02/18 07:00 Temperature Pulse Rate 75 69 76 Respiratory Rate Blood Pressure Pulse Oximetry 11/02/18 09:29 11/02/18 10:00 11/02/18 11:00 Temperature 97.8 F Pulse Rate 96 H 106 H 82 Respiratory Rate 16 Blood Pressure 131/80 Pulse Oximetry 98 11/02/18 12:00 Temperature 97.8 F Pulse Rate 78 Respiratory Rate 16 Blood Pressure 136/81 Pulse Oximetry 98 Intake & Output 11/01/18 11/02/18 11/02/18 18:59 06:59 18:59 Intake Total 740 / 740 Output Total 900 / 900 Balance -160 / -160 Weight 59 kg Intake: Oral 740 / 740 Output: Urine 900 / 900 Other: Date of Last Bowel Movement 11/01/18 11/01/18 11/01/18 # Bowel Movements 9 - Constitutional no acute distress, thin - Routine HEENT Exam Head: Present: normocephalic, atraumatic Eye: Present: EOMI, PERRL, normal accommodation ENT: Present: mucous membranes moist - Routine Neck Exam Present: supple - Routine Respiratory Exam Present: CTA bilaterally - Routine Cardiovascular Exam Present: tachycardia - Routine Abdominal Exam Present: soft - Routine Extremities Exam Present: edema, amputation Comments: 1+ BLE edema - Routine Skin Exam Present: intact - Routine Neurological Exam Present: alert, oriented X3 Results 11/01/18 05:31 11/02/18 06:27 Coagulation 10/31/18 11/01/18 11/02/18 Range/Units 18:50 05:31 06:27 PT 24.0 H 21.1 H 15.3 H (9.8-11.6) sec CBC 11/01/18 Range/Units 05:31 WBC 4.8 (4.0-11.0) th/mm3 RBC 3.96 L (4.00-5.30) mil/mm3 Hgb 11.7 (11.6-15.3) gm/dL Hct 34.4 L (35.0-46.0) % Plt Count 110 L (150-450) th/mm3 Neut # (Auto) 2.7 (1.8-7.7) th/mm3 Lymph # (Auto) 1.5 (1.0-4.8) th/mm3 [place] # (Auto) 0.4 (0.0-0.9) th/mm3 Eos # (Auto) 0.1 (0.0-0.4) th/mm3 Baso # (Auto) 0.1 (0.0-0.2) th/mm3 Comprehensive Metabolic Panel 11/01/18 11/02/18 Range/Units 05:31 06:27 Sodium 142 139 (136-145) meq/L Potassium 3.3 L 3.1 L (3.5-5.1) meq/L Chloride 104 101 (98-107) meq/L Carbon Dioxide 32.9 H 30.4 (21.0-32.0) meq/L BUN 21 H 22 H (7-18) mg/dL Creatinine 0.89 0.98 (0.50-1.00) mg/dL Calcium 8.7 8.8 (8.5-10.1) mg/dL Intake and Output 11/01/18 11/02/18 11/02/18 22:59 06:59 14:59 Intake Total 740 / 740 Output Total 900 / 900 Balance -160 / -160 Intake: Oral 740 / 740 Output: Urine 900 / 900 Other: Date of Last Bowel Movement 11/01/18 11/01/18 11/01/18 # Bowel Movements 9 Weight 59 kg Assessment and Plan - Plan Assessment Anasarca CHF Atrial fibrillation Renal insuficiency Aortic stenosis Primary biliary cirrhosis Esophageal varicies. C-Diff Plan Diuresing well. Edema improved, weight is down. Will decrease IV lasix and potassium replacement ordered. Will repeat labs in AM. Will resume Warfarin and Diltiazem. Nephrology following On nadolol. GI following, on Vanco. Pt has elected to hold off on paracentesis. Warfarin resumed. The patient was seen and evaluated by Dr. Monsalve who participated in care, management and decision making. The exam, history, and the medical decision-making described in the above note were completed with the assistance of the mid-level provider. I reviewed and agree with the findings presented. I attest that I had a [id number] encounter with the patient on the same day, and personally performed and documented my assessment and findings in the medical record. continue diuresis as per GI, also has CDiff Discussed Condition With: Dr. Monsalve, RN
--- NOTE | 2018-11-02 15:45 | P.PNIM ---
Subjective Interval history: Says she is feeling better. Reports bilateral lower extremity edema improving. Diarrhea is improving as well. Denies any bone pain. Denies nausea or vomiting. Physical Exam Vital signs: Vital Signs 11/01/18 16:00 11/01/18 17:00 11/01/18 18:00 Temperature 98.0 F Pulse Rate 116 H 94 H 108 H Respiratory Rate 18 Blood Pressure 114/82 Pulse Oximetry 98 11/01/18 19:00 11/01/18 20:00 11/01/18 21:00 Temperature 98.0 F Pulse Rate 97 H 104 H 118 H Respiratory Rate 16 Blood Pressure 108/56 L Pulse Oximetry 100 11/01/18 22:00 11/01/18 23:00 11/02/18 00:00 Temperature 98.5 F Pulse Rate 92 H 86 86 Respiratory Rate 18 Blood Pressure 101/55 L Pulse Oximetry 96 11/02/18 01:00 11/02/18 02:00 11/02/18 03:00 Temperature Pulse Rate 82 75 96 H Respiratory Rate Blood Pressure Pulse Oximetry 11/02/18 04:00 11/02/18 05:00 11/02/18 06:00 Temperature 98.0 F Pulse Rate 82 75 69 Respiratory Rate 16 Blood Pressure 116/82 Pulse Oximetry 98 11/02/18 07:00 11/02/18 09:29 11/02/18 10:00 Temperature 97.8 F Pulse Rate 76 96 H 106 H Respiratory Rate 16 Blood Pressure 131/80 Pulse Oximetry 98 11/02/18 11:00 11/02/18 12:00 Temperature 97.8 F Pulse Rate 82 78 Respiratory Rate 16 Blood Pressure 136/81 Pulse Oximetry 98 Intake & Output 11/01/18 11/02/18 11/02/18 18:59 06:59 18:59 Intake Total 740 / 740 Output Total 900 / 900 Balance -160 / -160 Weight 59 kg Intake: Oral 740 / 740 Output: Urine 900 / 900 Other: Date of Last Bowel Movement 11/01/18 11/01/18 11/01/18 # Bowel Movements 9 Narrative: GENERAL: Patient sitting up in bed. Appears comfortable. SKIN: Warm and dry. HEAD: Normocephalic. EYES: No scleral icterus. No injection or drainage. NECK: Supple, trachea midline. No JVD. CARDIOVASCULAR: Regular rate and rhythm without murmurs, gallops, or rubs. RESPIRATORY: Breath sounds equal bilaterally. No accessory muscle use. GASTROINTESTINAL: Abdomen soft, non-tender, nondistended. MUSCULOSKELETAL: No cyanosis, trace edema. BACK: Nontender without obvious deformity. No CVA tenderness. Results - Labs CBC & Chem 7: 11/01/18 05:31 11/02/18 06:27 Laboratory Results - last 24 hr 11/01/18 11/01/18 11/01/18 12:50 16:59 20:24 PT INR Sodium Potassium Chloride Carbon Dioxide Anion Gap BUN Creatinine Estimated GFR POC Glucose 133 H 227 H Random Glucose Calcium Stool C.difficile Ag Positive H Stool C.difficile Toxin Positive H Stl C.difficile DNA Amp Positive H St C. diff Tox Epid 027 Negative 11/02/18 11/02/18 11/02/18 06:27 06:27 08:17 PT 15.3 H INR 1.5 Sodium 139 Potassium 3.1 L Chloride 101 Carbon Dioxide 30.4 Anion Gap 8 BUN 22 H Creatinine 0.98 Estimated GFR 55 L POC Glucose 164 H Random Glucose 202 H Calcium 8.8 Stool C.difficile Ag Stool C.difficile Toxin Stl C.difficile DNA Amp St C. diff Tox Epid 027 11/02/18 11/02/18 09:45 12:41 PT INR Sodium Potassium Chloride Carbon Dioxide Anion Gap BUN Creatinine Estimated GFR POC Glucose 312 H 283 H Random Glucose Calcium Stool C.difficile Ag Stool C.difficile Toxin Stl C.difficile DNA Amp St C. diff Tox Epid 027 Assessment and Plan - Assessment (1) Edema Code(s): R60.9 - Edema, unspecified Status: Acute (2) Hypertension Code(s): I10 - Essential (primary) hypertension Status: Chronic (3) Hyperlipemia Code(s): E78.5 - Hyperlipidemia, unspecified Status: Chronic (4) GERD (gastroesophageal reflux disease) Code(s): K21.9 - Gastro-esophageal reflux disease without esophagitis Status: Chronic (5) Hypothyroid Code(s): E03.9 - Hypothyroidism, unspecified Status: Chronic - Plan History of Present Illness: patient is a 78 y/o female with history of Cirrhosis , hypertension, a/p aortic valve replacement, 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 She says that for the past ten days she noticed that her legs were progressively getting swollen and her abdominal distention has also been getting worse. She has primary biliary cirrhosis for 20 years, has previous varices, was on ursodeoxycholic acid, undergoing about, surveillance with last AFP of 2.5 in September. Cirrhosis with no liver lesions. Meld score cannot be done because of Coumadin. //Primary biliary cirrhosis with anasarca- Gastroenterology following, could be cardiac, AST ALT within normal limits. Coumadin on hold for paracentesis but ascites seems to be improving, patient would like to hold off. Aspirin on hold, INR 2.1. Continue diuretics with Lasix and Aldactone intravenously, nephrology managing, if no response, add IV albumin. Cardiology input pending, abdominal ultrasound showed moderate ascites and splenomegaly. = Continue diuresis. Continue to monitor. //C. difficile diarrhea. Improving on p.o. vancomycin. Continue p.o. vancomycin per //Chronic kidney disease-creatinine stable, baseline around 1.2, follows up with Dr. Peng. Nephrology following, continue diuresis with Lasix and Aldactone. //Dysuria-check urinalysisappears benign. =11/02. Patient denies any dysuria today. //Diarrhea-previously on antibiotics as outpatient, check C. difficile assay. //Esophageal varices-no varices on endoscopy done in March 2017 but recent MRI results showed varices. Continue nadolol. //s/p bovine aortic valve replacement-on Coumadin, on nadolol, Coumadin on hold because of supratherapeutic INR, 2.1 today. Cardiology consulted = Cardiology following. Restarted on warfarin. Appreciate assistance. //Thrombocytopenia-likely secondary to portal hypertension, monitor. Stable //Coagulopathy-Coumadin on hold. INR is 2.1 today. Check INR daily //Hypertension- cont Nadolol //diabetes mellitus type II, uncontrolled-continue sliding scale insulin based on Accu-Cheks. Hemoglobin A1c 7.7 //Hypothyroidism-resume Levothyroxine when dose has bee verified. //Hypokalemia-replace, recheck BMP tomorrow = 11/02. Potassium 3.1. Replaced. //DVT prophylaxis: on Coumadin //GI prophylaxis: Protonix, patient has history of varices. Discussed Condition With: Patient, nurse, Discharge Planning: Charge home in the next couple days pending cardiology, gastroenterology clearance We will need prescription for vancomycin by mouth for C. difficile
--- NOTE | 2018-11-02 16:51 | P.PNNP ---
Subjective Interval history: Patient states edema is better after resuming diuretic Apparently Bumex was stopped as outpatient Physical Exam Vital signs: Vital Signs 11/01/18 17:00 11/01/18 18:00 11/01/18 19:00 Temperature Pulse Rate 94 H 108 H 97 H Respiratory Rate Blood Pressure Pulse Oximetry 11/01/18 20:00 11/01/18 21:00 11/01/18 22:00 Temperature 98.0 F Pulse Rate 104 H 118 H 92 H Respiratory Rate 16 Blood Pressure 108/56 L Pulse Oximetry 100 11/01/18 23:00 11/02/18 00:00 11/02/18 01:00 Temperature 98.5 F Pulse Rate 86 86 82 Respiratory Rate 18 Blood Pressure 101/55 L Pulse Oximetry 96 11/02/18 02:00 11/02/18 03:00 11/02/18 04:00 Temperature 98.0 F Pulse Rate 75 96 H 82 Respiratory Rate 16 Blood Pressure 116/82 Pulse Oximetry 98 11/02/18 05:00 11/02/18 06:00 11/02/18 07:00 Temperature Pulse Rate 75 69 76 Respiratory Rate Blood Pressure Pulse Oximetry 11/02/18 09:29 11/02/18 10:00 11/02/18 11:00 Temperature 97.8 F Pulse Rate 96 H 106 H 82 Respiratory Rate 16 Blood Pressure 131/80 Pulse Oximetry 98 11/02/18 12:00 Temperature 97.8 F Pulse Rate 78 Respiratory Rate 16 Blood Pressure 136/81 Pulse Oximetry 98 Intake & Output 11/01/18 11/02/18 11/02/18 18:59 06:59 18:59 Intake Total 740 / 740 Output Total 900 / 900 Balance -160 / -160 Weight 59 kg Intake: Oral 740 / 740 Output: Urine 900 / 900 Other: Date of Last Bowel Movement 11/01/18 11/01/18 11/01/18 # Bowel Movements 9 Narrative: GENERAL: Patient sitting up in bed. Appears comfortable. SKIN: Warm and dry. HEAD: Normocephalic. EYES: No scleral icterus. No injection or drainage. NECK: Supple, trachea midline. No JVD. CARDIOVASCULAR: S1-S2 irregular RESPIRATORY: Breath sounds equal bilaterally. No accessory muscle use. GASTROINTESTINAL: Abdomen soft, non-tender, nondistended. MUSCULOSKELETAL: No cyanosis, 1+ edema. BACK: Nontender without obvious deformity. No CVA tenderness. Assessment and Plan - Assessment (1) Edema Code(s): R60.9 - Edema, unspecified Status: Acute (2) Hypertension Code(s): I10 - Essential (primary) hypertension Status: Chronic (3) Hyperlipemia Code(s): E78.5 - Hyperlipidemia, unspecified Status: Chronic (4) GERD (gastroesophageal reflux disease) Code(s): K21.9 - Gastro-esophageal reflux disease without esophagitis Status: Chronic (5) Hypothyroid Code(s): E03.9 - Hypothyroidism, unspecified Status: Chronic - Plan Patient with history of NATALIA. Atrial fibrillation/liver dysfunction Has edema in legs and ascites. Has no proteinuria, and started on IV Lasix and Aldactone. Creatinine now normal, K is low this was replaced Continue diuretics, patient was on Bumex 1 mg daily this was stopped however this can be resumed as an outpatient Patient has liver issues and heart issues Kidney function stable I will follow her as outpatient.
--- NOTE | 2018-11-02 18:02 | P.PNGI ---
Subjective Interval history: Patient improved. Her pedal edema is better. Abdominal distention is also improved. Patient's C. difficile by PCR was positive and she was placed on vancomycin and now her diarrhea has also improved. No confusion Physical Exam Vital signs: Vital Signs 11/01/18 18:00 11/01/18 19:00 11/01/18 20:00 Temperature 98.0 F Pulse Rate 108 H 97 H 104 H Respiratory Rate 16 Blood Pressure 108/56 L Pulse Oximetry 100 11/01/18 21:00 11/01/18 22:00 11/01/18 23:00 Temperature Pulse Rate 118 H 92 H 86 Respiratory Rate Blood Pressure Pulse Oximetry 11/02/18 00:00 11/02/18 01:00 11/02/18 02:00 Temperature 98.5 F Pulse Rate 86 82 75 Respiratory Rate 18 Blood Pressure 101/55 L Pulse Oximetry 96 11/02/18 03:00 11/02/18 04:00 11/02/18 05:00 Temperature 98.0 F Pulse Rate 96 H 82 75 Respiratory Rate 16 Blood Pressure 116/82 Pulse Oximetry 98 11/02/18 06:00 11/02/18 07:00 11/02/18 09:29 Temperature 97.8 F Pulse Rate 69 76 96 H Respiratory Rate 16 Blood Pressure 131/80 Pulse Oximetry 98 11/02/18 10:00 11/02/18 11:00 11/02/18 12:00 Temperature 97.8 F Pulse Rate 106 H 82 84 Respiratory Rate 16 Blood Pressure 136/81 Pulse Oximetry 98 11/02/18 13:00 11/02/18 14:00 11/02/18 15:00 Temperature Pulse Rate 82 76 86 Respiratory Rate Blood Pressure Pulse Oximetry 11/02/18 16:00 11/02/18 17:00 Temperature 98.0 F Pulse Rate 88 88 Respiratory Rate 20 Blood Pressure 124/81 Pulse Oximetry 99 Intake & Output 11/01/18 11/02/18 11/02/18 18:59 06:59 18:59 Intake Total 740 / 740 476 / 476 Output Total 900 / 900 600 / 600 Balance -160 / -160 -124 / -124 Weight 59 kg Intake: Oral 740 / 740 476 / 476 Output: Urine 900 / 900 600 / 600 Other: Date of Last Bowel Movement 11/01/18 11/01/18 11/01/18 # Bowel Movements 9 - Constitutional no acute distress - Routine HEENT Exam Head: Present: atraumatic Eye: Present: conjunctivae pink - Routine Neck Exam Present: supple - Routine Abdominal Exam Present: soft. Absent: tenderness, distended - Routine Extremities Exam Present: edema. Absent: clubbing - Routine Neurological Exam Present: alert, oriented X3 Results - Labs CBC & Chem 7: 11/01/18 05:31 11/02/18 06:27 Laboratory Results - last 24 hr 11/01/18 11/01/18 11/02/18 12:50 20:24 06:27 PT INR Sodium 139 Potassium 3.1 L Chloride 101 Carbon Dioxide 30.4 Anion Gap 8 BUN 22 H Creatinine 0.98 Estimated GFR 55 L POC Glucose 227 H Random Glucose 202 H Calcium 8.8 Stool C.difficile Ag Positive H Stool C.difficile Toxin Positive H 11/02/18 11/02/18 11/02/18 06:27 08:17 09:45 PT 15.3 H INR 1.5 Sodium Potassium Chloride Carbon Dioxide Anion Gap BUN Creatinine Estimated GFR POC Glucose 164 H 312 H Random Glucose Calcium Stool C.difficile Ag Stool C.difficile Toxin 11/02/18 11/02/18 12:41 17:12 PT INR Sodium Potassium Chloride Carbon Dioxide Anion Gap BUN Creatinine Estimated GFR POC Glucose 283 H 277 H Random Glucose Calcium Stool C.difficile Ag Stool C.difficile Toxin Assessment and Plan - Attending Attestation Impression- 1. 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 No encephalopathy 2. pedal edema--much better with diuretic 3. Possible ascitesnone felt on today's exam 4. Esophageal varices - She had no varices on upper endoscopy in 03/2017; however, recent MRI did show esophageal varices. 5. Status post aortic valve replacement with a bovine valve. 6. Atrial fibrillation. On Coumadin which is on hold 7. Loose stoolsbetter. Her C. difficile PCR was positive RECOMMENDATIONS: 1. Patient would like to hold off on the paracentesis. 2. Continue nephrology suggestions regarding diuretic 4. Continue nonselective beta-edd for her varices 5. Continue vancomycin 6. We will sign off. Follow-up with Dr. Garcia as an outpatient.
[2018-11-03 07:05] LABS: INR 1.4 Ratio; Prothrombin Time 14.6 sec (9.8-11.6)
[2018-11-03 07:30] LABS: Calcium 8.6 mg/dL (8.5-10.1); Carbon Dioxide 29.1 meq/L (21.0-32.0); Potassium 3.6 meq/L (3.5-5.1)
[2018-11-03] MEDS: Insulin NovoLOG Aspart Correctional Sugar Inj SQ SCH ×3 (07:52→16:36)
[2018-11-03] MEDS: Spironolactone 25 MG Tablet PO SCH (09:16)
[2018-11-03] MEDS: Nadolol 20 MG Tablet PO SCH (09:17)
[2018-11-03] MEDS: dilTIAZem CD 120 MG Capsule PO SCH (09:17)
[2018-11-03 09:38] VITALS: RESP 20
[2018-11-03 12:33] VITALS: TEMP 97.4
--- NOTE | 2018-11-03 13:10 | P.PNCA ---
Subjective Interval history: Patient doing well today. BLE edema has resolved. Admits to mild abdominal fullness today, improved significantly since admission. She denies any chest pain or SOB. HR has been stable on telemetry. Medications and Allergies Allergies Allergy/AdvReac Type Severity Reaction Status Date / Time enoxaparin Allergy Severe thrombocyto Verified 09/11/18 17:08 penia heparin (porcine) Allergy Severe thrombocyto Verified 09/11/18 17:08 penia nitrofurantoin Allergy Severe itching Verified 09/11/18 17:08 adhesive Allergy Intermediate REDNESS, Verified 09/11/18 17:08 ITCHING ampicillin Allergy Mild Rash Verified 09/11/18 17:08 diatrizoate meglumine Allergy Mild Hives Verified 09/11/18 17:08 gadobenic acid Allergy Mild Hives Verified 09/11/18 17:08 gadodiamide Allergy Mild Hives Verified 09/11/18 17:08 gadoteridol Allergy Mild Hives Verified 09/11/18 17:08 iodine Allergy Mild Hives Verified 09/11/18 17:08 iodixanol Allergy Mild Hives Verified 09/11/18 17:08 iohexol Allergy Mild Hives Verified 09/11/18 17:08 levofloxacin Allergy Mild Rash Verified 09/11/18 17:08 potassium iodide Allergy Mild Hives Verified 09/11/18 17:08 povidone-iodine Allergy Mild Hives Verified 09/11/18 17:08 sodium iodide Allergy Mild Hives Verified 09/11/18 17:08 Sulfa (Sulfonamide Allergy Mild Hives Verified 09/11/18 17:08 Antibiotics) *MDRO Multi-Drug Resistant AdvReac Unknown Hives Uncoded 08/12/18 23:34 Organism Home Medications Medication Instructions Recorded Confirmed Type Novolog Flexpen U-100 Insulin 1 unit SUBCUT DIRECTED 08/12/18 10/30/18 History albuterol sulfate [ProAir HFA] 2 puff INHALATION Q4-6H PRN 08/12/18 10/30/18 History cholecalciferol (vitamin D3) 1,000 unit PO DAILY 08/12/18 10/30/18 History [Vitamin D3] diltiazem HCl [Cardizem] 120 mg PO BID 08/12/18 10/30/18 History levothyroxine [Synthroid] 88 mcg PO DAILY 08/12/18 10/30/18 History mometasone 1 applic TOPICAL DAILY PRN 08/12/18 10/30/18 History [id number] gluconat 15 ml PO DAILY 08/12/18 10/30/18 History [Multi-Leticia] omeprazole 20 mg PO DAILY 08/12/18 10/30/18 History pyridoxine (vitamin B6) [Vitamin 100 mg PO DAILY 08/12/18 10/30/18 History B-6] warfarin 2.5 mg PO DAILY 08/12/18 10/30/18 History [id number] 1,000 mg PO DAILY 09/11/18 10/30/18 History ursodiol 500 mg PO BID 09/11/18 10/30/18 History warfarin See Label Instructions .ROUTE 09/11/18 10/30/18 History .COMPLEX bumetanide 1 mg PO DAILY 10/30/18 10/30/18 History rifaximin [Xifaxan] 550 mg PO BID 10/30/18 10/30/18 History Active Medications: Active Medications Acetaminophen (Tylenol) 650 mg PO Q4H PRN PRN Reason: PAIN 1-3 Acetaminophen/Codeine Phosphate (Tylenol W/Cod #3) 2 tab PO Q4H PRN PRN Reason: PAIN 4-5 Al Hydroxide/Mg Hydroxide (Milk Of Magnlucero Liq) 30 ml PO Q2H PRN PRN Reason: Mild Constipation Aspirin (Ecotrin) 325 mg PO DAILY [facility] Last Admin: 10/31/18 09:40 Dose: Not Given Dextrose (D50w Vial) 50 ml IV.PUSH UNSCH PRN PRN Reason: PER HYPOGLYCEMIA PROTOCOL Diltiazem HCl (Cardizem Cd 24hr) 120 mg PO DAILY [facility] Last Admin: 11/03/18 09:17 Dose: 120 mg Furosemide (Lasix Inj) 20 mg IV.PUSH BID@0900,1800 [facility] Last Admin: 11/03/18 09:18 Dose: 20 mg Glucagon (Glucagon Inj) 1 mg OTHER PRN PRN PRN Reason: for Hypoglycemia Protocol Insulin Aspart (Novolog Insulin Correctional Sugar Inj) 0 unit SQ ACHS [facility]; Protocol Last Admin: 11/03/18 12:47 Dose: 9 unit Nadolol (Corgard) 20 mg PO DAILY [facility] Last Admin: 11/03/18 09:17 Dose: 20 mg Pantoprazole Sodium (Protonix) 40 mg PO DAILY [facility] Last Admin: 11/03/18 09:17 Dose: 40 mg Potassium Chloride (K-Dur) 20 meq PO DAILY [facility] Last Admin: 11/03/18 09:17 Dose: 20 meq Spironolactone (Aldactone) 25 mg PO DAILY [facility] Last Admin: 11/03/18 09:16 Dose: 25 mg Temazepam (Restoril) 15 mg PO HS PRN PRN Reason: INSOMNIA Vancomycin HCl (Vancomycin Po) 125 mg PO QID [facility] Last Admin: 11/03/18 12:47 Dose: 125 mg Warfarin Sodium (Coumadin) 2.5 mg PO DAILY@1600 [facility] Physical Exam Vital signs: Vital Signs 11/02/18 14:00 11/02/18 15:00 11/02/18 16:00 Temperature 98.0 F Pulse Rate 76 86 88 Respiratory Rate 20 Blood Pressure 124/81 Pulse Oximetry 99 11/02/18 17:00 11/02/18 18:42 11/02/18 20:00 Temperature 97.4 F L 97.5 F L Pulse Rate 88 71 68 Respiratory Rate 18 17 Blood Pressure 139/62 146/66 H Pulse Oximetry 99 96 11/02/18 23:47 11/03/18 04:00 11/03/18 07:55 Temperature 98.2 F 97.7 F 97.3 F L Pulse Rate 65 66 76 Respiratory Rate 18 18 20 Blood Pressure 110/53 L 138/62 136/72 Pulse Oximetry 98 98 97 11/03/18 08:00 11/03/18 12:00 Temperature 97.4 F L Pulse Rate 68 69 Respiratory Rate 20 Blood Pressure 165/71 H Pulse Oximetry 99 Intake & Output 11/02/18 11/03/18 11/03/18 18:59 06:59 18:59 Intake Total 476 / 476 900 / 900 Output Total 600 / 600 700 / 700 Balance -124 / -124 200 / 200 Weight 59 kg Intake: Oral 476 / 476 900 / 900 Output: Urine 600 / 600 700 / 700 Other: Date of Last Bowel Movement 11/01/18 11/01/18 11/03/18 - Constitutional no acute distress, thin - Routine HEENT Exam Head: Present: normocephalic, atraumatic Eye: Present: EOMI, PERRL, normal accommodation ENT: Present: mucous membranes moist - Routine Neck Exam Present: supple - Routine Respiratory Exam Present: CTA bilaterally - Routine Cardiovascular Exam Present: murmur, irregular rhythm, irregularly irregular - Routine Abdominal Exam Present: soft, distended - Routine Extremities Exam Present: amputation - Routine Skin Exam Present: intact - Routine Neurological Exam Present: alert, oriented X3 - Detailed Neurological Exam: Coma Scale Eye Opening: Spontaneous Verbal Response: Oriented Motor Response: Obey commands [place] Coma Scale Total: 15 - Routine Psychiatric Exam Present: normal affect Comments: tearful today Results 11/01/18 05:31 11/03/18 05:37 Coagulation 11/02/18 11/03/18 Range/Units 06:27 05:37 PT 15.3 H 14.6 H (9.8-11.6) sec Comprehensive Metabolic Panel 11/02/18 11/03/18 Range/Units 06:27 05:37 Sodium 139 143 (136-145) meq/L Potassium 3.1 L 3.6 (3.5-5.1) meq/L Chloride 101 104 (98-107) meq/L Carbon Dioxide 30.4 29.1 (21.0-32.0) meq/L BUN 22 H 23 H (7-18) mg/dL Creatinine 0.98 0.90 (0.50-1.00) mg/dL Calcium 8.8 8.6 (8.5-10.1) mg/dL Intake and Output 11/02/18 11/03/18 11/03/18 22:59 06:59 14:59 Intake Total 476 / 476 900 / 900 Output Total 600 / 600 700 / 700 Balance -124 / -124 200 / 200 Intake: Oral 476 / 476 900 / 900 Output: Urine 600 / 600 700 / 700 Other: Date of Last Bowel Movement 11/01/18 11/03/18 Weight 59 kg Assessment and Plan - Plan Assessment Anasarca CHF Atrial fibrillation Renal insufficiency Aortic stenosis Primary biliary cirrhosis Esophageal varices. C-Diff Plan Diuresing well. Edema resolved, weight is down. Mild abdominal distention. Overall Improving On Warfarin and Diltiazem. Nephrology following On nadolol. GI following, on Vanco. Pt has elected to hold off on paracentesis. Warfarin resumed. INR 1.4 today, additional 2.5mg of warfarin given today. Will plan to DC home on torsemide 20mg daily, ok to increase to 40mg daily if edema returns. Advised to follow up with GI Dr. Garcia next week. We will plan to see her for hospital follow up in 2 weeks. The patient was seen and evaluated by Dr. Monsalve who participated in care, management and decision making. The exam, history, and the medical decision-making described in the above note were completed with the assistance of the mid-level provider. I reviewed and agree with the findings presented. I attest that I had a ypiv-wa-cyst encounter with the patient on the same day, and personally performed and documented my assessment and findings in the medical record. Will d/c liver management and ascites as per Dr Garcia Discussed Condition With: Dr. Monsalve
[2018-11-03 16:14] VITALS: BP 118/59; PULSE 50; O2SAT 100
--- NOTE | 2018-11-03 16:44 | P.DS ---
DS: Providers Date of admission: 10/30/18 16:59 Primary care physician: UNKNOWN Consults: 10/30/18 17:41 Consult to Cardiology Routine Consulting Provider: Josep Monsalve Does the patient have a Line Assembler Aircraft who follows them?: No Preferred Supervisor [employer]:: Josep Monsalve Reason for Consultation: ANASARCA AND ASCITES Notified:: Service Spoke with:: ADD TO LIST Date Notified:: 10/30/18 Time Notified:: 17:57 Ordering Provider: KOREY 10/30/18 17:42 Consult to Gastroenterology Routine Consulting Provider: Garrett Diaz Preferred Research Specialist:: Jey Garcia Reason for Consultation: ANASARCA AND ASCITES Notified:: Service Spoke with:: MALIK Date Notified:: 10/30/18 Time Notified:: 17:51 Ordering Provider: KOREY 10/31/18 09:33 Consult to Nephrology Routine Consulting Provider: Nichole Sherman Does the patient have a Advertising Intern who follows them?: Yes Preferred Nephrology Research Specialist:: Molly Peng Reason for Consultation: CKD, know to him Notified:: Service Spoke with:: breana Date Notified:: 10/31/18 Time Notified:: 09:44 Ordering Provider: LAURA Brief History from admission: patient is a 78 y/o female with history of Cirrhosis, hypertension, a/p aortic valve replacement, was sent to the hospital by her quality compliance coordinator because of worsening pedal edema and abdominal distention. she says that for the past ten days she noticed that her legs were progressively getting swollen and her abdominal distention has also been getting worse. she had ten-pound weight gain over that period of time. she denies any orthopnea or PND. she denies any chest pain, nausea or vomiting but has some abdominal discomfort.she says that changed her diretic regimen a few days ago but because of worsening edema she was advised to come to the hospital. DS: Summary 78-year-old female with history of cirrhosis was admitted for ascites and anasarca. Shift of this fluid imbalance seems related to episodic diarrhea that was occurring prior to admission. Diarrhea was worked up during this admission and showed the presence of Clostridium difficile toxin. She was started on oral vancomycin 3 days ago and is now having semi-formed stools. This is her first bout with C. difficile and therefore standard therapy is oral vancomycin for 10 days total. She was seen here by cardiology, gastroenterology , nephrology. She was diuresed aggressively and did well, her lower extremities have returned to normal. She had some abdominal fullness, this is likely some early ascites. She was recommended to resume her Bumex at 1 mg daily and to follow-up with her specialists. These 3 specialist have signed off and essentially it is up to she and I as to whether or not she wants to stay 1 more day to follow formation of her stools or whether she wants to continue treatment at home. She feels comfortable enough to take her vancomycin at home and so I will discharge her today with instructions to follow -up with her primary care provider following week after [place]. Time Spent with Patient Total time spent providing and/or coordinating discharge services: Less than 30 minutes Quality: VTE Deep Vein Thrombosis/Pulmonary Embolism Present on Admission: No Results Labs on day of discharge: Labs from last 24 hours 11/03/18 11/03/18 11/03/18 16:30 11:23 07:27 PT INR Sodium Potassium Chloride Carbon Dioxide Anion Gap BUN Creatinine Estimated GFR POC Glucose 428 H 381 H 129 H Random Glucose Calcium 11/03/18 11/03/18 11/02/18 05:37 05:37 20:08 PT 14.6 H INR 1.4 Sodium 143 Potassium 3.6 Chloride 104 Carbon Dioxide 29.1 Anion Gap 10 BUN 23 H Creatinine 0.90 Estimated GFR 61 L POC Glucose 258 H Random Glucose 116 H Calcium 8.6 11/02/18 17:12 PT INR Sodium Potassium Chloride Carbon Dioxide Anion Gap BUN Creatinine Estimated GFR POC Glucose 277 H Random Glucose Calcium Impressions ITS Impressions Chest X-Ray 10/30/18 00:00 CONCLUSION: 1. Subtle airspace disease in the left lower lung zone, presumably atelectasis. Abdomen Ultrasound 10/31/18 00:00 CONCLUSION: 1. Cirrhosis of the liver with splenomegaly. Moderate ascites is noted. No evidence of biliary obstruction or concerning mass. Bilateral simple renal cysts. Discharge Plan Discharge Disposition Patient Disposition: 01 Discharge Home Discharge Condition Condition: Good Discharge Order Discharge Orders: Discharge Order (Routine); Ordered 11/03/18 Ordered By: Tony Kathleen Discharge Details Anticipated Discharge Date: 11/03/18 Physicians Team Primary Care Provider: UNKNOWN, Attending Provider: Tony Kathleen Other Providers: Josep Monsalve ; Garrett Diaz ; Nichole Sherman Rxs /Orders / Referrals /Forms Prescriptions: New vancomycin 125 mg capsule 125 mg PO QID 8 Days Qty: 32 RF: 0 Continue bumetanide 1 mg Tablet 1 mg PO DAILY RF: 0 rifaximin [Xifaxan] 550 mg Tablet 550 mg PO BID RF: 0 diltiazem HCl [Cardizem] 60 mg Tablet 120 mg PO BID RF: 0 warfarin 2.5 mg Tablet 2.5 mg PO DAILY RF: 0 levothyroxine [Synthroid] 88 mcg Tablet 88 mcg PO DAILY RF: 0 omeprazole 20 mg Capsule,Delayed Release(Dr/Ec) 20 mg PO DAILY RF: 0 pyridoxine (vitamin B6) [Vitamin B-6] 100 mg Tablet 100 mg PO DAILY RF: 0 albuterol sulfate [ProAir HFA] 90 mcg/actuation Hfa Aerosol Inhaler 2 puff INHALATION Q4-6H PRN (Reason: Bronchospasm) RF: 0 mometasone 0.1 % Cream 1 applic TOPICAL DAILY PRN (Reason: Skin Cleansing) RF: 0 cholecalciferol (vitamin D3) [Vitamin D3] 1,000 unit Capsule 1,000 unit PO DAILY RF: 0 [id number] gluconat [Multi-Leticia] 9 mg iron/15 mL Liquid 15 ml PO DAILY RF: 0 Novolog Flexpen U-100 Insulin 1 unit subcut DIRECTED RF: 0 warfarin 2 mg Tablet See Label Instructions .ROUTE .COMPLEX RF: 0 ursodiol 250 mg Tablet 500 mg PO BID RF: 0 [id number] 500 mg calcium- 400 unit-15 mcg Tablet 1,000 mg PO DAILY RF: 0 Referrals: UNKNOWN, [Primary Care Provider] - See Instructions
== END 2018-11-03 17:19 | disposition home or self-care (01) ==
LOC: HCIS 16:59 → N07 11-02 18:36
PROVIDERS: ADMIT Family Medicine; ATTEND Family Medicine
DX: E78.5 Hyperlipidemia, unspecified; N28.1 Cyst of kidney, acquired; N18.9 Chronic kidney disease, unspecified; K74.3 Primary biliary cirrhosis; Z79.01 Long term (current) use of anticoagulants; I13.0 Hypertensive heart and chronic kidney disease with heart failure and stage 1 through stage 4 chronic kidney disease, or unspecified chronic kidney disease; Z79.4 Long term (current) use of insulin; R30.0 Dysuria; Z95.3 Presence of xenogenic heart valve; Z85.05 Personal history of malignant neoplasm of liver; K21.0 Gastro-esophageal reflux disease with esophagitis; E11.22 Type 2 diabetes mellitus with diabetic chronic kidney disease; Z91.041 Radiographic dye allergy status; Z88.1 Allergy status to other antibiotic agents; K76.6 Portal hypertension; A04.72 Enterocolitis due to Clostridium difficile, not specified as recurrent; D69.59 Other secondary thrombocytopenia; I50.9 Heart failure, unspecified; I48.91 Unspecified atrial fibrillation; R14.0 Abdominal distension (gaseous); E03.9 Hypothyroidism, unspecified; K72.90 Hepatic failure, unspecified without coma; I85.00 Esophageal varices without bleeding; Z88.2 Allergy status to sulfonamides; E87.6 Hypokalemia; Z86.73 Personal history of transient ischemic attack (TIA), and cerebral infarction without residual deficits; R18.8 Other ascites; E11.65 Type 2 diabetes mellitus with hyperglycemia